=== PATIENT | female | born 1970 | race Caucasian/White ===

== ENCOUNTER 2018-10-04 08:13 | Observation (INO) | payer SELFPAY ==
[~2018-10-04] VITALS: Ht 160 cm; Wt 148.9 kg
[~2018-10-04 08:13] MED LIST: AC500T PO; ACID1TAB PO; ALBU17AE3 IH; ALBU8.5H4 IH; BUDE10.2 IH; BUDE6HFA IH; CLON0.1T PO; CPH250CIP PO; DIPH1TAB45 PO; FESO45ML PO; FLUV100T3 PO; HYDR-3714 PO; IBUP-30 PO; IRON LIQUID PO; KCL10CCR PO; LORA0.5T PO; MGX400T PO; PRD10T PO; RT-ALBUINH IH; VENL150C PO; ZOLP10TA5 PO
[2018-10-04] MEDS ORDERED: RT-ALBUTEROL SULF 2.5 MG/3 ML PRE-MIX VIAL INH STA ×2 (08:19→08:32)
[2018-10-04] MEDS ORDERED: RT-IPRATROPIUM (ATROVENT) 0.5MG/2.5ML AMP IH ONE (08:24)
--- NOTE | 2018-10-04 08:26 | ED Respiratory ---
General Stated Complaint: SOB Source: patient Exam Limitations: no limitations History of Present Illness Date Seen by Provider: Oct 04, 2018 Time Seen by Provider: 08:16 Initial Comments Patient presents to ER by private conveyance with chief complaint of shortness of breath. Since Thursday, 5 days ago she started having some body aches and chills but no fever. She thought she might of had a cold and she has a history of asthma requiring frequent steroids couple times a year so she went to the clinic or Thursday of last week and he put her on prednisone and a Z- Nish. They did not test her for influenza because she has not any fevers. She said she took all the Z-Nish is been on the steroids and his been using her DuoNeb more and more frequently now she's about every 3-4 hours and awake. She said she got winded just trying to go to school this morning. She said she had to stop several times to sit down on her way in to class. She's been having a productive cough with yellow sputum. Allergies and Home Medications Allergies Coded Allergies: No Known Drug Allergies (Unverified , 10/26/13) Home Medications Acetaminophen 500 Mg Tablet, 1,000 MG PO DAILY PRN for PAIN OR FEVER, (Reported) TAKES 2 (500MG) TABLETS NEEDED FOR PAIN OR FEVER Albuterol Sulfate 18 Gm Hfa.aer.ad, 2 PUFF IH Q4H PRN for SHORTNESS OF BREATH, ( Reported) Budesonide/Formoterol Fumarate 10.2 Gm Hfa.aer.ad, 2 PUFF IH BID Prescribed by: TEVIN MONTANO on 08/05/16 0947 Clonidine HCl 0.1 Mg Tablet, 0.1 MG PO HS, (Reported) Fluvoxamine Maleate 100 Mg Tablet, 100 MG PO HS, (Reported) Lorazepam 0.5 Mg Tablet, 0.5 MG PO BID PRN for ANXIETY, (Reported) Prednisone 10 Mg Tab, 10 MG PO DAILY Take 5 tabs(50mg)daily, decrease by 1 tab(10mg) every other day. Prescribed by: TEVIN MONTANO on 08/05/16 0947 Zolpidem Tartrate 10 Mg Tablet, 10 MG PO HS PRN for SLEEP, (Reported) Patient Home Medication List Home Medication List Reviewed: Yes Review of Systems Review of Systems Constitutional: chills; No diaphoresis, No fever; malaise, weakness EENTM: No ear discharge, No hearing loss, No ear pain Respiratory: cough, dyspnea on exertion, phlegm, short of breath, wheezing Cardiovascular: No chest pain, No palpitations Gastrointestinal: No abdominal pain, No constipation, No diarrhea Genitourinary: No discharge, No dysuria : No Musculoskeletal: No back pain, No joint pain Skin: No pruritus, No rash Past Yskrehi-Iylzkf-Hvwkma Hx Patient Social History Alcohol Use: Rarely Uses Recreational Drug Use: No Smoking Status: Former Smoker Type Used: Cigarettes Former Smoker, Quit: Jul 27, 2013 Recent Hopitalizations: No Immunizations Up To Date Tetanus Booster (TDap): Unknown Date of Pneumonia Vaccine: Oct 22, 2008 Date of Influenza Vaccine: Jul 14, 2016 Seasonal Allergies Seasonal Allergies: No Past Medical History Asthma Currently Using BIPAP: Yes Reproductive Disorders: No Sexually Transmitted Disease: No HIV/AIDS: No ODD, Depression Adverse Reaction/Blood Tranf: No Family Medical History Cancer 03 FATHER (PANCREATITC) Family history: Cardiovascular disease 03 FATHER ([place]) Physical Exam Vital Signs - First Documented 10/04/18 08:13 Temp 98.7 Pulse 117 Resp 24 B/P (MAP) 132/80 (97) Pulse Ox 86 O2 Delivery Room Air Capillary Refill : Height: 5'4.00" Weight: 243lbs. 5.0oz. 110.892943zx; 42.4 BMI Method:Stated General Appearance: mild distress, obese Eyes: Bilateral Eye Normal Inspection, Bilateral Eye PERRL, Bilateral Eye EOMI HEENT: PERRL/EOMI, normal ENT inspection, TMs normal, pharynx normal Neck: non-tender, full range of motion, supple, normal inspection Respiratory: chest non-tender, respiratory distress (mild), accessory muscle use (mild), wheezing (severe all 4 al) Cardiovascular: normal peripheral pulses, regular rate, rhythm, no edema Gastrointestinal: normal bowel sounds, non tender, soft Extremities: normal inspection, no pedal edema, normal capillary refill Neurologic/Psychiatric: alert, normal mood/affect, oriented x 3 Skin: normal color, warm/dry Focused Exam Lactate Level 10/04/18 08:30: Lactic Acid Level 2.93*H Lactic Acid Level Laboratory Tests Test 10/04/18 08:30 Lactic Acid Level 2.93 MMOL/L (0.50-2.00) *H Progress/Results/Core Measures Suspected Sepsis SIRS Temperature: Pulse: Respiratory Rate: Laboratory Tests 10/04/18 08:30: White Blood Count 9.7 Blood Pressure / Mean: 10/04/18 08:30: Lactic Acid Level 2.93*H Laboratory Tests 10/04/18 08:30: Creatinine 0.94, INR Comment 1.0, Platelet Count 334, Total Bilirubin 0.4 Results/Orders Lab Results Laboratory Tests Test 10/04/18 08:30 10/04/18 10:17 Range/Units White Blood Count 9.7 4.3-11.0 10^3/uL Red Blood Count 4.67 4.35-5.85 10^6/uL Hemoglobin 9.4 L 11.5-16.0 G/DL Hematocrit 32 L 35-52 % Mean Corpuscular Volume 69 L 80-99 FL Mean Corpuscular Hemoglobin 20 L 25-34 PG Mean Corpuscular Hemoglobin Concent 29 L 32-36 G/DL Red Cell Distribution Width 20.1 H 10.0-14.5 % Platelet Count 334 130-400 10^3/uL Mean Platelet Volume 11.2 H 7.4-10.4 FL Neutrophils (%) (Auto) 67 42-75 % Lymphocytes (%) (Auto) 19 12-44 % Monocytes (%) (Auto) 9 0-12 % Eosinophils (%) (Auto) 5 0-10 % Basophils (%) (Auto) 0 0-10 % Neutrophils # (Auto) 6.5 1.8-7.8 X 10^3 Lymphocytes # (Auto) 1.8 1.0-4.0 X 10^3 Monocytes # (Auto) 0.8 0.0-1.0 X 10^3 Eosinophils # (Auto) 0.5 H 0.0-0.3 10^3/uL Basophils # (Auto) 0.0 0.0-0.1 10^3/uL Prothrombin Time 13.2 12.2-14.7 SEC INR Comment 1.0 0.8-1.4 Activated Partial Thromboplast Time 26 24-35 SEC Sodium Level 137 135-145 MMOL/L Potassium Level 3.9 3.6-5.0 MMOL/L Chloride Level 104 98-107 MMOL/L Carbon Dioxide Level 20 L 21-32 MMOL/L Anion Gap 13 5-14 MMOL/L Blood Urea Nitrogen 14 7-18 MG/DL Creatinine 0.94 0.60-1.30 MG/DL Estimat Glomerular Filtration Rate > 60 BUN/Creatinine Ratio 15 Glucose Level 91 70-105 MG/DL Lactic Acid Level 2.93 *H 0.50-2.00 MMOL/L Calcium Level 8.9 8.5-10.1 MG/DL Corrected Calcium 8.8 8.5-10.1 MG/DL Total Bilirubin 0.4 0.1-1.0 MG/DL Aspartate Amino Transf (AST/SGOT) 15 5-34 U/L Alanine Aminotransferase (ALT/SGPT) 15 0-55 U/L Alkaline Phosphatase 93 40-136 U/L Total Protein 7.0 6.4-8.2 GM/DL Albumin 4.1 3.2-4.5 GM/DL Serum Test, Qualitative NEGATIVE NEGATIVE Urine Color YELLOW Urine Clarity SLIGHTLY CLOUDY Urine pH 5 5-9 Urine Specific Irving 1.020 1.016-1.022 Urine Protein 1+ H NEGATIVE Urine Glucose (UA) NEGATIVE NEGATIVE Urine Ketones 1+ H NEGATIVE Urine Nitrite NEGATIVE NEGATIVE Urine Bilirubin 1+ H NEGATIVE Urine Urobilinogen 4 H NORMAL MG/DL Urine Leukocyte Esterase 1+ H NEGATIVE Urine RBC (Auto) NEGATIVE NEGATIVE Urine RBC NONE /HPF Urine WBC RARE /HPF Urine Squamous Epithelial Cells >50 H /HPF Urine Crystals NONE /LPF Urine Bacteria FEW H /HPF Urine Casts NONE /LPF Urine Mucus NEGATIVE /LPF Urine Culture Indicated CULTURE PENDING Micro Results Microbiology 10/04/18 Influenza Types A,B Antigen (MAIRA) - Final, Complete My Orders Orders - VALENTÍN NAVA Cbc With Automated Diff (10/04/18 08:19) Comprehensive Metabolic Panel (10/04/18 08:19) Blood Culture (10/04/18 08:19) Sputum Culture (10/04/18 08:19) Urinalysis (10/04/18 08:19) Urine Culture (10/04/18 08:19) Protime With Inr (10/04/18 08:19) Partial Thromboplastin Time (10/04/18 08:19) Saline Lock/Iv-Start (10/04/18 08:19) Saline Lock/Iv-Start (10/04/18 08:19) Vital Signs Adult Sepsis Patie Q15M (10/04/18 08:19) O2 (10/04/18 08:19) Remove Rings In Anticipation O (10/04/18 08:19) Lactic Acid Analyzer (10/04/18 08:19) Influenza A And B Antigens (10/04/18 08:19) Ns Iv 1000 Ml (Sodium Chloride 0.9%) (10/04/18 08:30) Ceftriaxone For Iv Use (Rocephin For I (10/04/18 08:30) Azithromycin Injection (Zithromax Inject (10/04/18 08:30) Albuterol Pre-Mix Nebs (Rt) (Proventil (10/04/18 08:19) Albuterol/Ipra Inhalation Soln (Duoneb I (10/04/18 08:30) Svn Small Volume Nebulizer (10/04/18 08:19) Svn Small Volume Nebulizer (10/04/18 08:19) Chest Pa/Lat (2 View) (10/04/18 08:26) Ipratropium 0.02% Neb Solution (Atrovent (10/04/18 08:24) Hcg,Qualitative Serum (10/04/18 08:32) Albuterol Pre-Mix Nebs (Rt) (Proventil (10/04/18 08:32) Methylprednisolone Sod Succ (Solu-Medrol (10/04/18 11:15) Medications Given in ED Current Medications Medications Dose Ordered Sig/Juan Route Start Time Stop Time Status Last Admin Dose Admin Azithromycin 500 mg/Sodium Chloride 250 ml @ 250 mls/hr ONCE ONCE IV 10/04/18 08:30 10/04/18 09:29 DC 10/04/18 10:22 250 MLS/HR Ceftriaxone Sodium 1000 mg/ Sodium Chloride 60 ml @ 100 mls/hr ONCE ONCE IV 10/04/18 08:30 10/04/18 09:05 DC 10/04/18 09:00 100 MLS/HR Ipratropium Echo 0.5 mg STK-MED ONCE IH 10/04/18 08:24 10/04/18 08:28 DC 10/04/18 08:30 0.5 MG Sodium Chloride 1,500 ml @ 1,500 mls/hr ONCE ONCE IV 10/04/18 08:30 10/04/18 09:29 DC 10/04/18 08:46 1,500 MLS/HR Vital Signs/I&O 10/04/18 10/04/18 10/04/18 08:13 08:25 08:29 Temp 98.7 Pulse 117 Resp 24 B/P (MAP) 132/80 (97) Pulse Ox 86 89 89 O2 Delivery Room Air Room Air Nasal Cannula Capillary Refill : Progress Note #1: Time: 08:31 Progress Note If she is really using her DuoNeb every 4 hours. She is likely tachyphylactic so we'll treat her with an hour-long breathing treatment, 125 mg Solu-Medrol and check a 2 view chest x-ray some labs. Technical she meets SIRS criteria with her tachypnea and tachycardia. Rocephin and azithromycin IV and blood cultures and lactate. Oxygen saturation 91-93% on room air so we'll put her on 2 L by nasal cannula. Progress Note #2: Time: 11:03 Progress Note After the breathing treatment she has a few fair wheezes and increased expiratory time but she is sounding a lot better. Her oxygen saturation is 93% on 2 L by nasal cannula with a heart rate of around 110. We have given her some IV fluids and antibiotics. She still feels very worn out and has a lot of increased dyspnea on exertion. Be reasonable to hold her on observation status will steroids get started. Diagnostic Imaging Diagonstic Imaging: Xray Plain Films/CT/US/NM/MRI: chest (2v) Comments [facility], [facility]. [place], [place] NAME: GERALDAPRIL [facility] REC#: [id number] PT STATUS: REG ER : 1970 PHYSICIAN: VALENTÍN NAVA MD ADMIT DATE: 10/04/18/ER Draft Date of Exam:10/04/18 CHEST PA/LAT (2 VIEW) Indication: Dyspnea PA and lateral views of the chest obtained with comparison made to study of 07/31/2016. Heart size and pulmonary vascularity are within normal limits. There is no pneumothorax or consolidation. Linear density in the left base likely represents atelectasis or scarring. There may be a small amount of intrafissural fluid as well. Impression: Mild left basilar atelectasis and/or scarring with possible intrafissural pleural fluid or thickening. Dictated on workstation # [id number] Dict: 10/04/18 1038 Trans: 10/04/18 1044 [facility] [id number] Interpreted by: GLENROY YORK MD Electronically signed by: Reviewed: Reviewed by Me Departure Communication (Admissions) Time/Spoke to Admitting Phy: 11:05 Discussed the case with Dr. Corona and she would like Dr. Chavez's consultation. Time/Spoke to Consulting Phy: 11:10 Discussed the case with Dr. Chavez and he would like RT to set up feeling Vioxx as well as albuterol every 2 hours, Solu-Medrol 40 mg every 6 hours. Impression Primary Impression: Acute asthma exacerbation Qualified Codes: J45.901 - Unspecified asthma with (acute) exacerbation Additional Impression: Hypoxia Disposition: 09 ADMITTED INPATIENT Condition: Stable Admissions Decision to Admit Reason: Admit from ER (General) Decision to Admit/Date: Oct 04, 2018 Time/Decision to Admit Time: 11:15 Departure-Patient Inst. Referrals: [facility] (PCP/Family) Primary Care Physician VALENTÍN NAVA Oct 04, 2018 08:26
[2018-10-04] MEDS ORDERED: RT-ALBUTEROL/IPRATROPIUM 3 ML (DUONEB) VIAL INH ONE (08:30)
[2018-10-04] MEDS ORDERED: NS IV 1000 ML 1,500 ML IV ONE (08:30)
[2018-10-04] MEDS ORDERED: cefTRIAXone FOR IV USE 1,000 MG in NS (IVPB) 50 ML IV ONE (08:30)
[2018-10-04] MEDS ORDERED: AZITHROMYCIN INJECTION 500 MG in NS (IVPB) 250 ML IV ONE (08:30)
[2018-10-04 08:39] LABS: BASOPHILS % (AUTO) 0 % (0-10); EOSINOPHILS # (AUTO) 0.5 10^3/uL (0.0-0.3); EOSINOPHILS % (AUTO) 5 % (0-10); HEMATOCRIT 32 % (35-52); HEMOGLOBIN 9.4 G/DL (11.5-16.0); LYMPHOCYTES # (AUTO) 1.8 X 10^3 (1.0-4.0); LYMPHOCYTES % (AUTO) 19 % (12-44); MEAN CORPUSCULAR HEMOGLOBIN 20 PG (25-34); MEAN CORPUSCULAR HGB CONC 29 G/DL (32-36); MEAN CORPUSCULAR VOLUME 69 FL (80-99); MEAN PLATELET VOLUME 11.2 FL (7.4-10.4); MONOCYTES # (AUTO) 0.8 X 10^3 (0.0-1.0); MONOCYTES % (AUTO) 9 % (0-12); NEUTROPHILS # (AUTO) 6.5 X 10^3 (1.8-7.8); NEUTROPHILS % (AUTO) 67 % (42-75); PLATELET COUNT 334 10^3/uL (130-400); RED BLOOD COUNT 4.67 10^6/uL (4.35-5.85); RED CELL DISTRIBUTION WIDTH 20.1 % (10.0-14.5); WHITE BLOOD COUNT 9.7 10^3/uL (4.3-11.0)
[2018-10-04 08:52] LABS: PROTHROMBIN TIME PATIENT 13.2 SEC (12.2-14.7)
[2018-10-04 08:59] LABS: ALANINE AMINOTRANSFERASE 15 U/L (0-55); ALBUMIN 4.1 GM/DL (3.2-4.5); ALKALINE PHOSPHATASE 93 U/L (40-136); BILIRUBIN,TOTAL 0.4 MG/DL (0.1-1.0); BUN/CREATININE RATIO 15; CALCIUM 8.9 MG/DL (8.5-10.1); CARBON DIOXIDE 20 MMOL/L (21-32); CHLORIDE 104 MMOL/L (98-107); CREATININE SERUM 0.94 MG/DL (0.60-1.30); GFR ESTIMATED > 60; GLUCOSE 91 MG/DL (70-105); POTASSIUM 3.9 MMOL/L (3.6-5.0); SODIUM 137 MMOL/L (135-145)
--- NOTE | 2018-10-04 10:12 | NUR ---
pt unable to tolerate without O2. Pt will desat to 86-87 %
[2018-10-04 10:30] LABS: CLARITY,URINE SLIGHTLY CLOUDY; COLOR,URINE YELLOW; GLUCOSE, URINE (UA) NEGATIVE (NEGATIVE); KETONES,URINE 1+ (NEGATIVE); LEUKOCYTE ESTERASE ,URINE 1+ (NEGATIVE); NITRITE,URINE NEGATIVE (NEGATIVE); PH,URINE 5 (5-9); PROTEIN,URINE 1+ (NEGATIVE); UROBILINOGEN,URINE 4 MG/DL (NORMAL)
--- NOTE | 2018-10-04 10:45 | Diagnostic Imaging Report ---
Indication: Dyspnea PA and lateral views of the chest obtained with comparison made to study of 07/31/2016. Heart size and pulmonary vascularity are within normal limits. There is no pneumothorax or consolidation. Linear density in the left base likely represents atelectasis or scarring. There may be a small amount of intrafissural fluid as well. Impression: Mild left basilar atelectasis and/or scarring with possible intrafissural pleural fluid or thickening. Dictated by: Dictated on workstation # [id number]
[2018-10-04 10:46] LABS: BACTERIA,URINE FEW /HPF; BILIRUBIN,URINE 1+ (NEGATIVE); SQUAMOUS EPITHELIAL CELL,UR >50 /HPF; WBC,URINE RARE /HPF
[2018-10-04 11:00] VITALS: BP 117/67
[2018-10-04] MEDS ORDERED: methylPREDNISolone 125 MG (Solu-MEDROL) VIAL IVP ONE (11:15)
[2018-10-04 11:50] LABS: ABG BASE EXCESS -2.5 MMOL/L (-2.5-2.5); ABG OXYGEN SATURATION 93 % (94-100); ABG PCO2 35 MMHG (35-45); ABG PH 7.41 (7.37-7.43); ABG PO2 63 MMHG (79-93); ABG TCO2 22.6 MMOL/L (21.0-31.0)
[2018-10-04 11:51] LABS: ALLENS TEST POSITIVE; INSPIRED O2 2; PATIENT TEMP 97.7; VENTILATOR NO
--- NOTE | 2018-10-04 12:41 | NUR ---
report given to andrez marquez
--- NOTE | 2018-10-04 13:04 | History & Physical-Hospitalist ---
JOSEFINA MCNALLY DO 10/04/18 1304: History of Present Illness HPI/Chief Complaint CC: Wheezing HPI: This is a 48-year-old white female with a history of asthma and sleep apnea maintain on home CPAP machine who presented to the ER after failed antibiotics and oral steroids given at the [facility] where she has established her care. She reports that the wheezing has just worsened and patient was given multiple nebulizer treatments in the ER and met criteria for hospital admission for IV steroids oxygen and nebulizer treatments. 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 Patient denies any productive cough or yellow sputum or fever or chills. Source: patient Exam Limitations: no limitations Date Seen 10/04/18 Time Seen by a Provider: 13:00 Attending Physician Josefina Mcnally DO [facility] Referring Physician Date of Admission Oct 04, 2018 at 11:24 Home Medications & Allergies Home Medications Reviewed patient Home Medication Reconciliation performed by pharmacy medication reconciliations veterinary technician assistant and/or nursing. Patients Allergies have been reviewed. 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) Alcohol Use: Rarely Uses Recreational Drug Use: No Smoking Status: Former Smoker Former Smoker, Quit: Jul 27, 2013 Type Used: Cigarettes Recent Foreign Travel: No Contact w/other who traveled: No Recent Hopitalizations: No Recent Infectious Disease Expo: No Immunizations Up To Date Tetanus Booster (TDap): Unknown Date of Pneumonia Vaccine: Oct 22, 2008 Date of Influenza Vaccine: Jul 14, 2016 Seasonal Allergies Seasonal Allergies: No Past Medical History Surgeries: Abdominal (gastric sleeve) Respiratory: Asthma, Sleep Apnea Currently Using BIPAP: Yes Reproductive: No Sexually Transmitted Disease: No HIV/AIDS: No Genitourinary: Bladder Infection Gastrointestinal: Gastroesophageal Reflux, Chronic Constipation Musculoskeletal: Chronic Back Pain Psychosocial: Sleep Difficulties, Anxiety, ODD, Depression History of Blood Disorders: Yes (ANEMIA) Adverse Reaction to Blood Pascual: No Family History Cancer 03 FATHER (PANCREATITC) Family history: Cardiovascular disease 03 FATHER ([place]) Review of Systems Constitutional: see HPI EENTM: no symptoms reported Respiratory: cough, dyspnea on exertion, short of breath, wheezing Cardiovascular: no symptoms reported Gastrointestinal: no symptoms reported Genitourinary: no symptoms reported Musculoskeletal: no symptoms reported Skin: no symptoms reported Psychiatric/Neurological: No Symptoms Reported All Other Systems Reviewed Negative Unless Noted: Yes Physical Exam Physical Exam Vital Signs Vital Signs - First Documented 10/04/18 10/04/18 08:13 10:45 Temp 98.7 Pulse 117 Resp 24 B/P (MAP) 132/80 (97) Pulse Ox 86 O2 Delivery Room Air O2 Flow Rate 3.00 Capillary Refill : Less Than 3 Seconds Height, Weight, BMI Height: 5'6.00" Weight: 250lbs. 5.0oz. 113.175601lx; 42.4 BMI Method:Stated General Appearance: No Apparent Distress, WD/WN, Chronically ill, Obese Eyes: Bilateral Eye Normal Inspection, Bilateral Eye PERRL HEENT: PERRL/EOMI, Normal ENT Inspection, Pharynx Normal Neck: Full Range of Motion, Normal Inspection, Non Tender, Supple, Carotid Bruit Respiratory: Chest Non Tender, Crackles, Decreased Breath Sounds, Respiratory Distress, Wheezing Cardiovascular: Regular Rate, Rhythm, No Edema, No Gallop, No JVD, No Murmur, Normal Peripheral Pulses Gastrointestinal: Normal Bowel Sounds, No Organomegaly, No Pulsatile Mass, Non Tender, Soft Back: Normal Inspection, No CVA Tenderness, No Vertebral Tenderness Extremity: Normal Capillary Refill, Normal Inspection, Normal Range of Motion, Non Tender, No Calf Tenderness, No Pedal Edema Neurologic/Psychiatric: Alert, Oriented x3, No Motor/Sensory Deficits, Normal Mood/Affect Skin: Normal Color, Warm/Dry Lymphatic: No Adenopathy Results Results/Procedures Labs Laboratory Tests 10/04/18 08:30 10/05/18 05:54 Patient resulted labs reviewed. Assessment/Plan Admission Diagnosis Assessment: Status asthmaticus failed outpatient treatment Sleep apnea maintained on CPAP machine Obesity failed gastric sleeve Anxiety OCD Depression Insomnia Plan: IV steroids Pulmonology consultation is appreciated Likely discharge tomorrow Admission Status: Observation Diagnosis/Problems Diagnosis/Problems (1) Acute asthma exacerbation Status: Acute Qualifiers: Asthma severity: unspecified severity Asthma persistence: unspecified Qualified Codes: J45.901 - Unspecified asthma with (acute) exacerbation (2) Hypoxia Status: Acute LAUREL KWONG MEDICAL STUDENT 10/05/18 0739: History of Present Illness HPI/Chief Complaint This is a 48 year old female with history of asthma who was admitted from the ED for SOB. Pt states that she started feeling "sick" with body aches last week. She states she went to the clinic on and was prescribed prednisone dose pack. Pt states that she has had worsening SOB since Thursday. Pt states walking makes the shortness of breath worse and that it is better with rest. Pt states she has tried her home nebulizer and inhaler which did not help. Pt states she has episodes where she has to be hospitalized every couple years with the last hospitalization being in 2016. Past Gqiatxm-Mktaqr-Ufemmu Hx Family History Cancer 03 FATHER (PANCREATITC) Family history: Cardiovascular disease 03 FATHER ([place]) Review of Systems Constitutional: no symptoms reported; No weakness EENTM: no symptoms reported Respiratory: cough, short of breath Gastrointestinal: No abdominal pain, No nausea, No vomiting Musculoskeletal: no symptoms reported Physical Exam Physical Exam General Appearance: Mild Distress Eyes: Bilateral Eye PERRL HEENT: PERRL/EOMI Respiratory: Respiratory Distress, Wheezing Cardiovascular: Tachycardia Gastrointestinal: Normal Bowel Sounds, Non Tender, Soft Neurologic/Psychiatric: Alert, Oriented x3 Assessment/Plan Assessment and Plan assessment asthma exacerbation Lactic acidosis plan duoneb q4h IV solumedrol O2 IV fluids JOSEFINA MCNALLY DO Oct 04, 2018 13:04 LAUREL KWONG MEDICAL STUDENT Oct 05, 2018 07:39
[2018-10-04 13:08] VITALS: BP 127/62
[2018-10-04] MEDS ORDERED: ACETAMINOPHEN 500 MG TAB (TYLENOL) PO PRN (14:00)
[2018-10-04] MEDS ORDERED: ONDANSETRON 4 MG/2 ML (SDV) Z0FRAN IVP PRN (14:00)
--- NOTE | 2018-10-04 14:00 | NUR ---
Pt. in room on Heliox O2. Lungs have bilateral inspiratory wheezes. Pt. has no complaints of sob at this time. No complaints of pain. Pt. oriented to room and call light.
[2018-10-04] MEDS ORDERED: BENZ100C18 PO (14:19)
[2018-10-04] MEDS ORDERED: MELO15TA39 PO (14:19)
[2018-10-04] MEDS ORDERED: AZIT250T12 PO (14:19)
[2018-10-04] MEDS ORDERED: BUDE10.2 IH (14:25)
[2018-10-04] MEDS ORDERED: LORA1TAB PO (14:25)
[2018-10-04] MEDS ORDERED: IPRA3AMP31 IH (14:25)
[2018-10-04] MEDS ORDERED: BUPR150T9 PO (14:25)
[2018-10-04] MEDS ORDERED: DULO30CA3 PO (14:25)
--- NOTE | 2018-10-04 14:27 | NUR ---
SPOKE WITH THE PATIENT REGARDING HER HOME MEDICATIONS, SHE HAD HER BOTTLES WITH HER. I ALSO CALLED [facility] FOR A LIST OF RECENTLY FILLED MEDICATIONS. [facility] FILLED: 10-01-18 TESSALON PERLES 100MG TID PRN #42 10-01-18 ZPAK #6 (HAS TWO TABS LEFT) 09-30-18 MOBIC 15MG DAILY #30 09-30-18 PREDNISONE 20MG 2 DAILY X 5 DAYS #10 (OUT OF PILLS, STATES SHE TOOK MORE IN BEGINNING AND TAPERED DOWN, SHE STATES SHE CALLED AND TALKED TO ABOUT DOING THIS) 09-30-18 WELLBUTRIN SR 150MG BID #60 09-11-18 AMBIEN 10MG HS PRN #30 (STATES SHE TAKES EVERY NIGHT) 09-11-18 LORAZEPAM 1MG BID PRN #60 09-11-18 CYMBALTA 30MG 1 DAILY X 7 DAYS THEN INCREASED TO 2 DAILY (TAKES IT BID) 07-30-18 VENTOLIN PATIENT ALSO HAS SYMBICORT SHE STATES SHE RECEIVED SAMPLE, AND ALSO HAS DUONEB NEBULIZER TREATMENTS SHE USES Q4H PRN.
[2018-10-04] MEDS: NS IV 1000 ML 1,000 ML IV SCH ×2 (14:35→21:41)
[2018-10-04 14:40] VITALS: BP 127/62
[2018-10-04] MEDS ORDERED: RT-ALBUTEROL SULF 2.5 MG/3 ML PRE-MIX VIAL IH SCH (15:00)
[2018-10-04] MEDS ORDERED: RT-ALBUTEROL/IPRATROPIUM 3 ML (DUONEB) VIAL INH PRN (15:00)
[2018-10-04 16:00] VITALS: BP 121/68
--- NOTE | 2018-10-04 16:13 | Pulmonary Consultation ---
History of Present Illness History of Present Illness Date of Consultation 10/04/18 16:07 Time Seen by Provider: 16:07 Date of Admission History of Present Illness 48yo with hx of uncontrolled asthma requiring steroids 2x/yr on average presented to ED secondary to worsening SOB and SPC of thick yellow sputum. Symptoms started 5 days prior with body aches and chills but no fever. Last week pt was placed on a prednisone taper and Zpak. Despite out patient treatment patient continued to worsen. I am consulted for pulmonary management. Allergies and Home Medications Allergies Coded Allergies: No Known Drug Allergies (Unverified , 10/26/13) Home Medications Albuterol Sulfate 18 Gm Hfa.aer.ad, 2 PUFF IH Q4H PRN for SHORTNESS OF BREATH, ( Reported) Azithromycin 250 Mg Tablet, 250 MG PO UD, (Reported) FILLED #6 10-01-18 TAKE 2 TABLETS ON DAY ONE THEN TAKE 1 TABLET DAILY FOR FOUR MORE DAYS Benzonatate 100 Mg Capsule, 100 MG PO TID PRN for COUGH, (Reported) Budesonide/Formoterol Fumarate 10.2 Gm Hfa.aer.ad, 2 PUFF IH BID, (Reported) Bupropion HCl 150 Mg Tablet.er, 150 MG PO BID, (Reported) Duloxetine HCl 30 Mg Capsule.dr, 30 MG PO BID, (Reported) Ipratropium/Albuterol Sulfate 3 Ml Ampul.neb, 3 ML IH Q4H PRN for SHORTNESS OF BREATH, (Reported) Lorazepam 1 Mg Tablet, 1 MG PO BID PRN for ANXIETY, (Reported) Meloxicam 15 Mg Tablet, 15 MG PO DAILY, (Reported) Zolpidem Tartrate 10 Mg Tablet, 10 MG PO HS, (Reported) Past Czxembn-Nrytlc-Lbeubh Hx Patient Social History Alcohol Use: Rarely Uses Number of Drinks Today: 0 Recreational Drug Use: No Smoking Status: Former Smoker Type Used: Cigarettes Former Smoker, Quit: Jul 27, 2013 Recent Foreign Travel: No Contact w/Someone Who Travel: No Recent Infectious Disease Expo: No Recent Hopitalizations: No Physical Abuse: No Sexual Abuse: No Mistreated: No Fear: No Immunizations Up To Date Tetanus Booster (TDap): Unknown PED Vaccines UTD: Yes Date of Pneumonia Vaccine: Oct 22, 2008 Date of Influenza Vaccine: Jun 24, 2018 Seasonal Allergies Seasonal Allergies: No Past Medical History Surgeries: Yes (GASTRIC BYPASS - 2001) Respiratory: Yes Asthma Currently Using BIPAP: Yes Cardiac: No Neurological: No Reproductive Disorders: No Sexually Transmitted Disease: No HIV/AIDS: No Musculoskeletal: No Endocrine: No Cancer: No Psychosocial: No ODD, Depression Integumentary: Yes Blood Disorders: Yes (ANEMIA) Adverse Reaction/Blood Tranf: No Family Medical History Cancer 03 FATHER (PANCREATITC) Family history: Cardiovascular disease 03 FATHER ([place]) Sepsis Event Evaluation Height, Weight, BMI Height: 5'3.00" Weight: 323lbs. 6.0oz. 146.016484gh; 57.3 BMI Method:Stated Exam Exam Vital Signs Date Time Temp Pulse Resp B/P (MAP) Pulse Ox O2 Delivery O2 Flow Rate FiO2 10/04/18 15:05 88 Nasal Cannula 2.00 10/04/18 14:40 102 88 10/04/18 13:22 98.6 88 18 117/74 (88) 100 Room Air 10/04/18 13:08 98.6 91 20 127/62 (83) 96 Nasal Cannula 2.00 10/04/18 11:00 98.4 84 22 117/67 (84) 94 Nasal Cannula 3.00 10/04/18 10:45 98.4 84 20 122/68 94 Nasal Cannula 3.00 10/04/18 08:29 89 Nasal Cannula 10/04/18 08:25 89 Room Air 10/04/18 08:13 98.7 117 24 132/80 (97) 86 Room Air Height & Weight Height: 5'3.00" Weight: 323lbs. 6.0oz. 146.561610lo; 57.3 BMI Method:Stated Capillary Refill: Less Than 3 Seconds Gastrointestinal: normal bowel sounds, non tender, soft Results Lab Laboratory Tests 10/04/18 08:30 Assessment/Plan Assessment/Plan AsthmaAE -Solumedrol 40 Q6 -SVNS -Telemetry Hypoxia -OXygen Atelectasis KRISTIE MARCH DO Oct 04, 2018 16:12
[2018-10-04] MEDS ORDERED: LORazepam 1 MG (ATIVAN) TAB PO PRN (17:45)
[2018-10-04] MEDS ORDERED: BENZONATATE 100 MG (TESSALON) CAPSULE PO PRN (17:45)
[2018-10-04] MEDS: methylPREDNISolone 40 MG/ML (Solu-MEDROL) VIAL IV SCH ×2 (17:49→23:27)
[2018-10-04] MEDS: buPROPion SR 150 MG (WELLBUTRIN SR) TAB PO SCH (18:32)
[2018-10-04] MEDS: ACETAMINOPHEN 325 MG TABLET PO PRN ×2 (18:45→23:27)
[2018-10-04] MEDS: RT-ALBUTEROL/IPRATROPIUM 3 ML (DUONEB) VIAL INH SCH ×2 (19:15→21:47)
[2018-10-04] MEDS ORDERED: NON-FORMULARY MEDICATION 1 EA EA (Duloxetine HCl (Cymbalta) 30 MG) PO SCH (21:00)
[2018-10-04] MEDS ORDERED: NON-FORMULARY MEDICATION 1 EA EA (Zolpidem Tartrate 10 MG) PO SCH (21:00)
[2018-10-04] MEDS ORDERED: BUPROPION HCL 150 MG PO SCH (21:00)
[2018-10-04] MEDS ORDERED: DULoxetine 30 MG (CYMBALTA) CAP PO SCH (21:00)
[2018-10-04] MEDS ORDERED: ZOLPIDEM 5 MG (AMBIEN) TAB PO SCH (21:00)
[2018-10-05 00:25] VITALS: BP 143/66
[2018-10-05] MEDS: RT-ALBUTEROL/IPRATROPIUM 3 ML (DUONEB) VIAL INH SCH ×3 (02:17→20:10)
[2018-10-05 04:16] VITALS: BP 139/63
--- NOTE | 2018-10-05 04:27 | Pulmonary Progress Note ---
THELMACRYSTAL STUDENT 10/05/18 0427: Subjective Date Seen by a Provider: Oct 05, 2018 Time Seen by a Provider: 04:21 Subjective/Events-last exam She feels like her breathing is doing better today but she is still short of breath when walking to the bathroom. She is on 3 L oxygen currently. Cough is still present but with less sputum production. She is concerned about going home because she is taking classes that just started. Review of Systems General: No Chills, No Night Sweats, No Fatigue HEENT: No Head Aches, No Visual Changes Pulmonary: Dyspnea, Cough, Pleuritic Chest Pain Cardiovascular: No: Chest Pain, Palpitations, Orthopnea, Paroxysmal Noc. Dyspnea, Edema Gastrointestinal: No: Abdominal Pain, Diarrhea, Constipation Genitourinary: No Dysuria, No Frequency Neurological: No: Weakness, Numbness Sepsis Event Evaluation Height, Weight, BMI Height: 5'3.00" Weight: 323lbs. 6.0oz. 146.722765bp; 57.3 BMI Method:Stated Focused Exam Lactate Level 10/04/18 08:30: Lactic Acid Level 2.93*H 10/04/18 12:16: Lactic Acid Level 2.05*H Exam Exam Vital Signs Date Time Temp Pulse Resp B/P (MAP) Pulse Ox O2 Delivery O2 Flow Rate FiO2 10/05/18 02:17 90 Room Air 3.00 10/05/18 01:00 105 10/05/18 00:25 97.8 85 18 143/66 (91) 93 Nasal Cannula 3.50 10/04/18 21:48 92 Non Rebreather 3.00 10/04/18 20:00 Nasal Cannula 3.00 10/04/18 19:15 93 Nasal Cannula 3.00 10/04/18 19:00 103 10/04/18 17:10 20 91 10/04/18 16:56 91 Non Rebreather 3.00 10/04/18 16:48 97 10/04/18 16:00 96.9 109 20 121/68 (85) 92 Nasal Cannula 3.00 10/04/18 15:05 88 Nasal Cannula 2.00 10/04/18 14:40 102 88 10/04/18 13:22 98.6 88 18 117/74 (88) 100 Room Air 10/04/18 13:08 98.6 91 20 127/62 (83) 96 Nasal Cannula 2.00 10/04/18 11:00 98.4 84 22 117/67 (84) 94 Nasal Cannula 3.00 10/04/18 10:45 98.4 84 20 122/68 94 Nasal Cannula 3.00 10/04/18 08:29 89 Nasal Cannula 10/04/18 08:25 89 Room Air 10/04/18 08:13 98.7 117 24 132/80 (97) 86 Room Air I & O 10/05/18 07:00 Intake Total 2800 ml Output Total 750 ml Balance 2050 ml Height & Weight Height: 5'3.00" Weight: 323lbs. 6.0oz. 146.371819qd; 57.3 BMI Method:Stated General Appearance: No Apparent Distress, WD/WN, Obese HEENT: PERRL/EOMI, Pharynx Normal, Moist Mucous Membranes Neck: Normal Inspection, Non Tender, Supple Respiratory: Chest Non Tender, Normal Breath Sounds, No Accessory Muscle Use, No Respiratory Distress Cardiovascular: Regular Rate, Rhythm, No Edema, No Murmur Capillary Refill: Less Than 3 Seconds Gastrointestinal: normal bowel sounds, non tender, soft Extremity: Normal Inspection, Non Tender, No Calf Tenderness, No Pedal Edema Neurologic/Psychiatric: Alert, Oriented x3, Normal Mood/Affect Skin: Normal Color, Warm/Dry Lymphatic: No Adenopathy Results Lab Laboratory Tests 10/04/18 08:30 Assessment/Plan Assessment/Plan Asthma AE -Conintue solumedrol 40 Q6 -SVNS -Influenza A and B were negative -ABG showed compensated respiratory alkalosis -Telemetry -On symbicort and ventolin at home Hypoxia -Oxygen -RT consult Atelectasis -CXR showed atelectasis SVETLANA -CPAP Lactic acid elevation -Repeat today Microcytic anemia -Iron replacement Obesity -Discussed weight loss KRISTIE MARCH DO 10/05/18 0815: Subjective Date Seen by a Provider: Oct 05, 2018 Time Seen by a Provider: 08:10 Subjective/Events-last exam Pt feels better and wants to go home. She is still requiring 3 liters of oxygen. Exam Exam General Appearance: No Apparent Distress, WD/WN, Obese HEENT: PERRL/EOMI, Pharynx Normal, Moist Mucous Membranes Neck: Normal Inspection, Non Tender, Supple Respiratory: Chest Non Tender, Normal Breath Sounds, No Accessory Muscle Use, No Respiratory Distress Cardiovascular: Regular Rate, Rhythm, No Edema, No Murmur Gastrointestinal: normal bowel sounds, non tender, soft Extremity: Normal Inspection, Non Tender, No Calf Tenderness, No Pedal Edema Neurologic/Psychiatric: Alert, Oriented x3, Normal Mood/Affect Skin: Normal Color, Warm/Dry Lymphatic: No Adenopathy Assessment/Plan Assessment/Plan Asthma AE -solumedrol 40 Q6 -SVNS -Influenza A and B were negative -Telemetry -add advair Hypoxia -Oxygen -RT consult Atelectasis -CXR showed atelectasis SVETLANA -CPAP Lactic acid elevation -Repeat today Microcytic anemia -Iron replacement Obesity -Discussed weight loss CRYSTAL RENEE STUDENT Oct 05, 2018 04:27 KRISTIE MARCH DO Oct 05, 2018 08:15
[2018-10-05] MEDS: buPROPion SR 150 MG (WELLBUTRIN SR) TAB PO SCH ×3 (05:24→20:30)
[2018-10-05] MEDS: methylPREDNISolone 40 MG/ML (Solu-MEDROL) VIAL IV SCH ×4 (05:24→23:37)
[2018-10-05] MEDS: NS IV 1000 ML 1,000 ML IV SCH ×2 (05:24→11:36)
[2018-10-05 06:48] LABS: BASOPHILS % (AUTO) 0 % (0-10); EOSINOPHILS % (AUTO) 0 % (0-10); HEMATOCRIT 31 % (35-52); HEMOGLOBIN 8.9 G/DL (11.5-16.0); LYMPHOCYTES # (AUTO) 0.9 X 10^3 (1.0-4.0); LYMPHOCYTES % (AUTO) 9 % (12-44); MEAN CORPUSCULAR HEMOGLOBIN 20 PG (25-34); MEAN CORPUSCULAR HGB CONC 29 G/DL (32-36); MEAN CORPUSCULAR VOLUME 70 FL (80-99); MEAN PLATELET VOLUME 11.7 FL (7.4-10.4); MONOCYTES # (AUTO) 0.4 X 10^3 (0.0-1.0); MONOCYTES % (AUTO) 4 % (0-12); NEUTROPHILS # (AUTO) 8.9 X 10^3 (1.8-7.8); NEUTROPHILS % (AUTO) 88 % (42-75); PLATELET COUNT 313 10^3/uL (130-400); RED BLOOD COUNT 4.49 10^6/uL (4.35-5.85); RED CELL DISTRIBUTION WIDTH 19.7 % (10.0-14.5); WHITE BLOOD COUNT 10.1 10^3/uL (4.3-11.0)
[2018-10-05 07:08] LABS: ALANINE AMINOTRANSFERASE 15 U/L (0-55); ALBUMIN 3.9 GM/DL (3.2-4.5); ALKALINE PHOSPHATASE 87 U/L (40-136); BILIRUBIN,TOTAL 0.3 MG/DL (0.1-1.0); BUN/CREATININE RATIO 18; CALCIUM 9.1 MG/DL (8.5-10.1); CARBON DIOXIDE 18 MMOL/L (21-32); CHLORIDE 108 MMOL/L (98-107); CREATININE SERUM 0.83 MG/DL (0.60-1.30); GFR ESTIMATED > 60; GLUCOSE 131 MG/DL (70-105); POTASSIUM 4.2 MMOL/L (3.6-5.0); SODIUM 138 MMOL/L (135-145); TOTAL PROTEIN 6.8 GM/DL (6.4-8.2)
[2018-10-05 07:44] LABS: HYPOCHROMASIA MODERATE; LYMPHOCYTES % (MANUAL) 8 %; MICROCYTOSIS MODERATE; MONOCYTES % (MANUAL) 1 %; MYELOCYTES % 1 %; NEUTROPHILS % (MANUAL) 90 %
[2018-10-05 07:45] LABS: ANISOCYTOSIS MODERATE; ELLIPT/OVALOCYTES SLIGHT
[2018-10-05 08:00] VITALS: BP 143/64
[2018-10-05] MEDS ORDERED: NON-FORMULARY MEDICATION 1 EA EA (Meloxicam 15 MG) PO SCH (09:00)
[2018-10-05] MEDS ORDERED: MELOXICAM 7.5 MG (MOBIC) TABLET PO SCH (09:00)
--- NOTE | 2018-10-05 09:32 | Progress Note-Hospitalist ---
STEPHANIE MCNALLY DO 10/05/18 0932: Subjective HPI/CC On Admission Date Seen by Provider: Oct 05, 2018 Time Seen by Provider: 09:30 This is a 48 year old female with history of asthma who was admitted from the ED for SOB. Pt states that she started feeling "sick" with body aches last week. She states she went to the clinic on and was prescribed prednisone dose pack. Pt states that she has had worsening SOB since Thursday. Pt states walking makes the shortness of breath worse and that it is better with rest. Pt states she has tried her home nebulizer and inhaler which did not help. Pt states she has episodes where she has to be hospitalized every couple years with the last hospitalization being in 2016. 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 Overall less wheezing Able to use her CPAP machine Less coughing Review of Systems Pulmonary: Cough Focused Exam Lactate Level 10/04/18 08:30: Lactic Acid Level 2.93*H 10/04/18 12:16: Lactic Acid Level 2.05*H Objective Exam Vital Signs Vital Signs Date Time Temp Pulse Resp B/P (MAP) Pulse Ox O2 Delivery O2 Flow Rate FiO2 10/05/18 20:10 97 Room Air 3.00 10/05/18 15:45 98.1 115 18 139/60 (86) Capillary Refill : Less Than 3 Seconds General Appearance: No Apparent Distress, WD/WN, Chronically ill, Obese Respiratory: Chest Non Tender, No Accessory Muscle Use, No Respiratory Distress , Crackles, Decreased Breath Sounds, Wheezing Cardiovascular: Regular Rate, Rhythm, No Edema, No Gallop, No JVD, No Murmur, Normal Peripheral Pulses Neurologic/Psychiatric: Alert, Oriented x3, No Motor/Sensory Deficits, Normal Mood/Affect Results/Procedures Lab Laboratory Tests 10/05/18 05:54 Patient resulted labs reviewed. Assessment/Plan Assessment and Plan Assess & Plan/Chief Complaint Assessment: Status asthmaticus failed outpatient treatment Sleep apnea maintained on CPAP machine Obesity failed gastric sleeve Anxiety OCD Depression Insomnia Plan: IV steroids Pulmonology consultation is appreciated Likely discharge tomorrow Diagnosis/Problems Diagnosis/Problems (1) Acute asthma exacerbation Status: Acute Qualifiers: Asthma severity: unspecified severity Asthma persistence: unspecified Qualified Codes: J45.901 - Unspecified asthma with (acute) exacerbation (2) Hypoxia Status: Acute (3) Hypokalemia Onset Date: 11/02/2013 Status: Acute (4) Anemia Onset Date: 11/02/2013 Status: Chronic Clinical Quality Measures DVT/VTE Risk/Contraindication: Risk Factor Score Per Nursin RFS Level Per Nursing on Admit: 2=Moderate LAUREL KWONG MEDICAL STUDENT 10/05/18 1110: Subjective Subjective/Events-last exam Pt feeling better Pt states SOB has improved some Pt still has ROSE Objective Exam General Appearance: No Apparent Distress, WD/WN HEENT: PERRL/EOMI Neck: Full Range of Motion, Supple Respiratory: No Accessory Muscle Use, No Respiratory Distress, Wheezing Cardiovascular: Regular Rate, Rhythm, No Murmur Neurologic/Psychiatric: Alert, Oriented x3 Assessment/Plan Assessment and Plan Assess & Plan/Chief Complaint Assessment: asthma exacerbation lactic acidosis - improving Plan start home meds continue buoneb q6h STEPHANIE MCNALLY DO Oct 05, 2018 09:32 LAUREL KWONG MEDICAL STUDENT Oct 05, 2018 11:10
[2018-10-05] MEDS ORDERED: PATIENT MAY USE OWN MEDS, ALL MC SCH (09:45)
[2018-10-05] MEDS ORDERED: BENZONATATE 100 MG (TESSALON) CAPSULE PO PRN (10:15)
[2018-10-05] MEDS ORDERED: RT-ALBUTEROL/IPRATROPIUM 3 ML (DUONEB) VIAL INH PRN (10:30)
[2018-10-05] MEDS: MELOXICAM 15MG TABLET PO SCH (11:34)
[2018-10-05] MEDS: DULoxetine 30 MG (CYMBALTA) CAP PO SCH ×2 (11:44→20:31)
[2018-10-05] MEDS ORDERED: LORazepam 1 MG (ATIVAN) TAB PO PRN (12:00)
[2018-10-05] MEDS ORDERED: RT-ALBUTEROL/IPRATROPIUM 3 ML (DUONEB) VIAL INH SCH (14:00)
[2018-10-05 15:45] VITALS: BP 139/60
--- NOTE | 2018-10-05 17:21 | NUR ---
PATIENT WANTS TO TAKE HER WELLBUTRIN TONIGHT WHEN SHE TAKES HER OTHER MEDICATIONS. WILL PASS THIS ALONG TO [facility] TENDER RN.
[2018-10-05] MEDS: RT-ADVAIR HFA 115/21 MCG PER PUFF IH SCH (20:10)
[2018-10-05] MEDS ORDERED: ZOLPIDEM 10 MG PO SCH (21:00)
[2018-10-06 00:03] VITALS: BP 146/68
[2018-10-06] MEDS: RT-ALBUTEROL/IPRATROPIUM 3 ML (DUONEB) VIAL INH SCH ×2 (01:34→09:36)
[2018-10-06 04:09] VITALS: BP 139/73
[2018-10-06 05:45] LABS: BASOPHILS % (AUTO) 0 % (0-10); EOSINOPHILS % (AUTO) 0 % (0-10); HEMATOCRIT 30 % (35-52); HEMOGLOBIN 8.5 G/DL (11.5-16.0); LYMPHOCYTES # (AUTO) 1.1 X 10^3 (1.0-4.0); LYMPHOCYTES % (AUTO) 8 % (12-44); MEAN CORPUSCULAR HEMOGLOBIN 20 PG (25-34); MEAN CORPUSCULAR HGB CONC 29 G/DL (32-36); MEAN CORPUSCULAR VOLUME 70 FL (80-99); MEAN PLATELET VOLUME 10.8 FL (7.4-10.4); MONOCYTES # (AUTO) 0.5 X 10^3 (0.0-1.0); MONOCYTES % (AUTO) 4 % (0-12); NEUTROPHILS # (AUTO) 12.3 X 10^3 (1.8-7.8); NEUTROPHILS % (AUTO) 88 % (42-75); PLATELET COUNT 339 10^3/uL (130-400); RED BLOOD COUNT 4.27 10^6/uL (4.35-5.85); RED CELL DISTRIBUTION WIDTH 19.8 % (10.0-14.5); WHITE BLOOD COUNT 13.9 10^3/uL (4.3-11.0)
[2018-10-06 06:03] LABS: ALANINE AMINOTRANSFERASE 15 U/L (0-55); ALBUMIN 3.7 GM/DL (3.2-4.5); ALKALINE PHOSPHATASE 83 U/L (40-136); BILIRUBIN,TOTAL 0.2 MG/DL (0.1-1.0); BUN/CREATININE RATIO 22; CALCIUM 8.6 MG/DL (8.5-10.1); CARBON DIOXIDE 21 MMOL/L (21-32); CHLORIDE 109 MMOL/L (98-107); CREATININE SERUM 0.83 MG/DL (0.60-1.30); GFR ESTIMATED > 60; GLUCOSE 125 MG/DL (70-105); POTASSIUM 4.5 MMOL/L (3.6-5.0); SODIUM 140 MMOL/L (135-145); TOTAL PROTEIN 6.3 GM/DL (6.4-8.2)
[2018-10-06] MEDS: methylPREDNISolone 40 MG/ML (Solu-MEDROL) VIAL IV SCH (06:07)
[2018-10-06 08:00] VITALS: BP 146/65
[2018-10-06] MEDS: buPROPion SR 150 MG (WELLBUTRIN SR) TAB PO SCH (08:04)
[2018-10-06] MEDS: DULoxetine 30 MG (CYMBALTA) CAP PO SCH (08:06)
[2018-10-06] MEDS: MELOXICAM 15MG TABLET PO SCH (08:07)
[2018-10-06] MEDS: RT-ADVAIR HFA 115/21 MCG PER PUFF IH SCH (09:36)
--- NOTE | 2018-10-06 09:58 | Discharge Summary-Hospitalist ---
STEPHANIE MCNALLY DO 10/06/18 0958: Diagnosis/Chief Complaint Date of Admission Oct 04, 2018 at 11:24 Date of Discharge Admission Diagnosis Assessment: Status asthmaticus failed outpatient treatment Sleep apnea maintained on CPAP machine Obesity failed gastric sleeve Anxiety OCD Depression Insomnia Plan: IV steroids Pulmonology consultation is appreciated Likely discharge tomorrow Discharge Diagnosis (1) Acute asthma exacerbation Status: Acute (2) Hypoxia Status: Chronic (3) Hypokalemia Onset Date: 11/02/2013 Status: Resolved (4) Anemia Onset Date: 11/02/2013 Status: Chronic Discharge Summary Discharge Physical Exam Allergies: Coded Allergies: morphine (Verified Allergy, Mild, 10/05/18) itch Vitals & I&Os Vital Signs Date Time Temp Pulse Resp B/P (MAP) Pulse Ox O2 Delivery O2 Flow Rate FiO2 10/06/18 09:36 92 Room Air 10/06/18 08:00 3.00 10/06/18 08:00 97.9 76 20 146/65 (92) General Appearance: No Apparent Distress, WD/WN, Chronically ill, Obese Respiratory: Chest Non Tender, Normal Breath Sounds, No Accessory Muscle Use, No Respiratory Distress, Crackles (subtle) Cardiovascular: Regular Rate, Rhythm, No Edema, No Gallop, No JVD, No Murmur, Normal Peripheral Pulses Neurologic/Psychiatric: Alert, Oriented x3, No Motor/Sensory Deficits, Normal Mood/Affect Hospital Course Patient had an uncomplicated hospital course. She was admitted and placed on O2 and IV steroids and Nebs. Pt responded rapidly. Home meds restarted. O2 evaluation will be performed to evaluate home O2 necessity. Pt was deemed stable at [facility] along with Dr Chavez in agreement. Labs (last 24 hrs) Laboratory Tests 10/06/18 05:17: White Blood Count 13.9H, Red Blood Count 4.27L, Hemoglobin 8.5L, Hematocrit 30L , Mean Corpuscular Volume 70L, Mean Corpuscular Hemoglobin 20L, Mean Corpuscular Hemoglobin Concent 29L, Red Cell Distribution Width 19.8H, Platelet Count 339, Mean Platelet Volume 10.8H, Neutrophils (%) (Auto) 88H, Lymphocytes ( %) (Auto) 8L, Monocytes (%) (Auto) 4, Eosinophils (%) (Auto) 0, Basophils (%) ( Auto) 0, Neutrophils # (Auto) 12.3H, Lymphocytes # (Auto) 1.1, Monocytes # (Auto ) 0.5, Eosinophils # (Auto) 0.0, Basophils # (Auto) 0.0, Sodium Level 140, Potassium Level 4.5, Chloride Level 109H, Carbon Dioxide Level 21, Anion Gap 10 , Blood Urea Nitrogen 18, Creatinine 0.83, Estimat Glomerular Filtration Rate > 60, BUN/Creatinine Ratio 22, Glucose Level 125H, Calcium Level 8.6, Corrected Calcium 8.8, Total Bilirubin 0.2, Aspartate Amino Transf (AST/SGOT) 14, Alanine Aminotransferase (ALT/SGPT) 15, Alkaline Phosphatase 83, Total Protein 6.3L, Albumin 3.7 Microbiology 10/04/18 Blood Culture - Preliminary, Resulted No growth 10/04/18 Influenza Types A,B Antigen (MAIRA) - Final, Complete 10/04/18 Urine Culture - Final, Complete See Report Patient resulted labs reviewed. Pending Labs Laboratory Tests 10/06/18 05:17: White Blood Count 13.9, Red Blood Count 4.27, Hemoglobin 8.5, Hematocrit 30, Mean Corpuscular Volume 70, Mean Corpuscular Hemoglobin 20, Mean Corpuscular Hemoglobin Concent 29, Red Cell Distribution Width 19.8, Platelet Count 339, Mean Platelet Volume 10.8, Neutrophils (%) (Auto) 88, Lymphocytes (%) (Auto) 8, Monocytes (%) (Auto) 4, Eosinophils (%) (Auto) 0, Basophils (%) (Auto) 0, Neutrophils # (Auto) 12.3, Lymphocytes # (Auto) 1.1, Monocytes # (Auto) 0.5, Eosinophils # (Auto) 0.0, Basophils # (Auto) 0.0, Sodium Level 140, Potassium Level 4.5, Chloride Level 109, Carbon Dioxide Level 21, Anion Gap 10, Blood Urea Nitrogen 18, Creatinine 0.83, Estimat Glomerular Filtration Rate > 60, BUN/ Creatinine Ratio 22, Glucose Level 125, Calcium Level 8.6, Corrected Calcium 8.8 , Total Bilirubin 0.2, Aspartate Amino Transf (AST/SGOT) 14, Alanine Aminotransferase (ALT/SGPT) 15, Alkaline Phosphatase 83, Total Protein 6.3, Albumin 3.7 Discussion & Recommendations Discharge Planning: <30 minutes discharge planning Discharge Home Medications: Active Scripts Active Prednisone 10 Mg Tab.ds.pk 10 Mg PO DAILY Take 6 tabs(60mg)daily,decrease by 1 tab(10MG)daily. Reported Symbicort 160-4.5 Mcg Inhaler (Budesonide/Formoterol Fumarate) 10.2 Gm Hfa.aer.ad 2 Puff IH BID Iprat-Albut 0.5-3(2.5) mg/3 ml (Ipratropium/Albuterol Sulfate) 3 Ml Ampul.neb 3 Ml IH Q4H PRN Cymbalta (Duloxetine HCl) 30 Mg Capsule.dr 30 Mg PO BID Wellbutrin Sr (Bupropion HCl) 150 Mg Tablet.er 150 Mg PO BID Lorazepam 1 Mg Tablet 1 Mg PO BID PRN Meloxicam 15 Mg Tablet 15 Mg PO DAILY Azithromycin 250 Mg Tablet 250 Mg PO UD FILLED #6 10-01-18 TAKE 2 TABLETS ON DAY ONE THEN TAKE 1 TABLET DAILY FOR FOUR MORE DAYS Tessalon Perles (Benzonatate) 100 Mg Capsule 100 Mg PO TID PRN Ventolin Hfa (Albuterol Sulfate) 18 Gm Hfa.aer.ad 2 Puff IH Q4H PRN Zolpidem Tartrate 10 Mg Tablet 10 Mg PO HS Instructions to patient/family Please see electronic discharge instructions given to patient. Clinical Quality Measures DVT/VTE Risk/Contraindication: Risk Factor Score Per Nursin RFS Level Per Nursing on Admit: 2=Moderate LAUREL KWONG A MEDICAL STUDENT 10/06/18 1003: Discharge Summary Discharge Physical Exam Allergies: Coded Allergies: morphine (Verified Allergy, Mild, 10/05/18) itch General Appearance: No Apparent Distress, WD/WN HEENT: PERRL/EOMI Respiratory: Lungs Clear, No Respiratory Distress Neurologic/Psychiatric: Alert, Oriented x3 Hospital Course This is a 48 year old female who was admitted on 10/04 for acute asthma exacerbation and lactic acidosis. During the patients 3 day stay, the pt was given IV solu-medrol and duoneb q4h and IVF which improved the patients condition. Pt's wheezing and respiratory distress resolved. Pt was found to have anemia and was placed on iron supplementation. Problem Qualifiers (1) Acute asthma exacerbation: Asthma severity: unspecified severity Asthma persistence: unspecified Qualified Codes: J45.901 - Unspecified asthma with (acute) exacerbation (2) Anemia: Anemia type: unspecified type Qualified Codes: D64.9 - Anemia, unspecified STEPHANIE MCNALLY DO Oct 06, 2018 09:58 LAUREL KWONG MEDICAL STUDENT Oct 06, 2018 10:03
[2018-10-06] MEDS ORDERED: PRED10TA22 PO (10:35)
--- NOTE | 2018-10-06 11:22 | Pulmonary Progress Note ---
Subjective Date Seen by a Provider: Oct 06, 2018 Time Seen by a Provider: 11:28 Subjective/Events-last exam PT feels improved. She walked halls and her Sp02 did not drop. Sepsis Event Evaluation Height, Weight, BMI Height: 5'3.00" Weight: 328lbs. 6.0oz. 148.111436yw; 57.3 BMI Method:Stated Focused Exam Lactate Level 10/04/18 08:30: Lactic Acid Level 2.93*H 10/04/18 12:16: Lactic Acid Level 2.05*H Exam Exam Vital Signs Date Time Temp Pulse Resp B/P (MAP) Pulse Ox O2 Delivery O2 Flow Rate FiO2 10/06/18 09:36 92 Room Air 10/06/18 08:00 Nasal Cannula 3.00 10/06/18 08:00 97.9 76 20 146/65 (92) 90 Room Air 10/06/18 07:00 69 10/06/18 04:09 98.5 76 18 139/73 (95) 95 Nasal Cannula 3.50 10/06/18 01:34 90 NIV CPAP 3.00 10/06/18 01:00 105 10/06/18 00:03 98.4 73 20 146/68 (94) 95 Nasal Cannula 3.50 10/05/18 20:25 97 Nasal Cannula 3.00 10/05/18 20:10 97 Room Air 3.00 10/05/18 19:00 82 10/05/18 16:04 94 Room Air 3.00 10/05/18 15:45 98.1 115 18 139/60 (86) 94 Nasal Cannula 3.50 10/05/18 13:18 72 I & O 10/06/18 07:00 Intake Total 3730 ml Output Total 4000 ml Balance -270 ml Height & Weight Height: 5'3.00" Weight: 328lbs. 6.0oz. 148.175201yk; 57.3 BMI Method:Stated General Appearance: No Apparent Distress, WD/WN, Chronically ill, Obese HEENT: PERRL/EOMI Neck: Full Range of Motion, Normal Inspection, Non Tender, Supple, Carotid Bruit Respiratory: Chest Non Tender, Normal Breath Sounds, No Accessory Muscle Use, No Respiratory Distress, Crackles (subtle) Cardiovascular: Regular Rate, Rhythm, No Edema, No Gallop, No JVD, No Murmur, Normal Peripheral Pulses Capillary Refill: Less Than 3 Seconds Gastrointestinal: normal bowel sounds, non tender, soft Extremity: Normal Capillary Refill, Normal Inspection, Normal Range of Motion, Non Tender, No Calf Tenderness, No Pedal Edema Neurologic/Psychiatric: Alert, Oriented x3, No Motor/Sensory Deficits, Normal Mood/Affect Skin: Normal Color, Warm/Dry Lymphatic: No Adenopathy Results Lab Laboratory Tests 10/05/18 05:54 10/06/18 05:17 Assessment/Plan Assessment/Plan Asthma AE -solumedrol 40 Q6 - Change to prednisone taper -SVNS -Influenza A and B were negative -Telemetry -advair Hypoxia -Oxygen Leukocytosis - secondary to steroids. Atelectasis -CXR showed atelectasis SVETLANA -CPAP Lactic acid elevation -Repeat today Microcytic anemia -Iron replacement Obesity -Discussed weight loss PT is ok for discharge from pulmonary standpoint. I will f/u in my office in 1- 3wks KRISTIE MARCH DO Oct 06, 2018 11:22
[2018-10-06 12:00] VITALS: BP 111/61
[2018-10-06 14:05] VITALS: BP 111/61
[2018-10-07] MEDS ORDERED: predniSONE 10 MG TAB PO SCH (09:00)
--- OUTSIDE RECORDS SUMMARY | 2018-10-07 10:16 | XMS REPORT ---
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 Role Phone CRISTY MIRTA Unavailable PROBLEMS Type Condition ICD9-CM Code [id number] Code Onset Dates Condition Status SNOMED Code Problem OCD (obsessive compulsive disorder) F42 Active 875359228 Problem Adjustment disorder with depressed mood F43.21 Active 07865819 Problem Chronic cellulitis L03.90 Active 433234741 Problem Eating disorder, unspecified F50.9 Active 92024609 Problem Insomnia G47.00 Active 538270882 Problem Body mass index (BMI) of 40.0-44.9 in adult Z68.41 Active 646905509 Problem Moderate persistent asthma without complication J45.40 Active 064464250 Problem Other obesity due to excess calories E66.09 Active 77688399573467 Problem ROBINA (generalized anxiety disorder) F41.1 Active 38885532 Problem Moderate episode of recurrent major depressive disorder F33.1 Active 109112125 Problem Obesity (BMI 30.0-34.9) E66.9 Active 687349960571480 Problem Asthma J45.909 Active 647621597 Problem Anxiety F41.9 Active 61404535 Problem Severe persistent asthma with acute exacerbation J45.51 Active 594007280 Problem BMI 45.0-49.9, adult Z68.42 Active 396032748 Problem Binge eating disorder F50.81 Active 189262225 Problem COPD exacerbation J44.1 Active 149524879 Problem Other chronic pain G89.29 Active 95009834 Problem Iron deficiency anemia, unspecified iron deficiency anemia type D50.9 Active 54402344 Problem SVETLANA treated with BiPAP G47.33 Active 33066265 Problem Reactive depression F32.9 Active 28963373 Problem Habitual self-excoriation F42.4 Active 702571911 Problem Psychophysiological insomnia F51.04 Active 057911116 Problem Asthma exacerbation J45.901 Active 073193794 Problem Seasonal allergic rhinitis due to pollen J30.1 Active 21270103 ALLERGIES No Information ENCOUNTERS Encounter Location Date Diagnosis [place] [id number] [place] [address] 13531- 3949 Aug, [place] [id number] [place] [address] 90047- 4678 Jul, ROBINA (generalized anxiety disorder) F41.1 ; Moderate episode of recurrent major depressive disorder F33.1 ; Binge eating disorder F50.81 and BMI 50.0-59.9, adult Z68.43 [place] [address] 84143- 3797 Jul, ROBINA (generalized anxiety disorder) F41.1 [place] [id number] [place] [address] 42699- 7136 Jun, [place] [address] 06355- 6256 Jun, ROBINA (generalized anxiety disorder) F41.1 [place] [id number] [place] [address] 63388- 0387 May, ROBINA (generalized anxiety disorder) F41.1 ; Moderate episode of recurrent major depressive disorder F33.1 ; Habitual self-excoriation F42.4 and Binge eating disorder F50.81 [place] [id number] [place] [address] 90048- 1805 May, [place] [id number] [place] [address] 90968- 0214 Apr, ROBINA (generalized anxiety disorder) F41.1 ; Moderate episode of recurrent major depressive disorder F33.1 ; Binge eating disorder F50.81 ; Excoriation T14.8XXA and BMI 45.0-49.9, adult Z68.42 [place] [id number] [place] [address] 44625- 0615 Apr, [place] [id number] [place] [address] 80993- 7587 Apr, [facility] [id number] [place] [address] 60443- 2621 Apr, Diarrhea, unspecified type R19.7 [facility] [id number] [place] [address] 47951- 1445 Apr, Diarrhea, unspecified type R19.7 [place] [id number] [place] [address] 17247- 3577 Apr, ROBINA (generalized anxiety disorder) F41.1 ; Moderate episode of recurrent major depressive disorder F33.1 ; Excoriation T14.8XXA ; Binge eating disorder F50.81 and BMI 45.0-49.9, adult Z68.42 [place] [address] [place] [address] 64340- 4662 Mar, Pain in left knee M25.562 ; Other chronic pain G89.29 and Body mass index (BMI) of 40.0-44.9 in adult Z68.41 [facility] [address] [place] [address] 43406 -9422 Mar, Other specified bacterial agents as the cause of diseases classified elsewhere B96.89 ; Local infection of the skin and subcutaneous tissue, unspecified L08.9 ; Fever in other diseases R50.81 and BMI 50.0-59.9, adult Z68.43 [place] [address] [place] [address] 66231- 6621 Mar, Habitual self-excoriation F42.4 ; Anxiety F41.9 and Psychophysiological insomnia F51.04 [place] [id number] [place] [address] 68061- 4586 Feb, [place] [id number] [place] [address] 87482- 9853 Feb, Anxiety F41.9 and Psychophysiological insomnia F51.04 [place] [id number] [place] [address] 69085- 9304 January, Acute pain of left knee M25.562 and BMI 50.0-59.9, adult Z68.43 [place] [id number] [place] [address] 68664- 2624 January, [place] [address] 39948- 8107 January, COPD exacerbation J44.1 and Severe persistent asthma with acute exacerbation J45.51 [place] [address] 55231- 4893 January, Anxiety F41.9 and Psychophysiological insomnia F51.04 [place] [address] 60025- 2919 January, COPD exacerbation J44.1 and Left medial knee pain M25.562 [place] [address] 99317- 9350 Dec, COPD with exacerbation J44.1 ; BMI 45.0-49.9, adult Z68.42 ; SVETLANA treated with BiPAP G47.33 and Psychophysiological insomnia F51.04 [place] [address] 23865- 7995 Dec, [place] [id number] [place] [address] 68591- 6870 Dec, Acute pain of left knee M25.562 ; Unspecified fall, initial encounter W19.XXXA ; Unspecified place in unspecified non-institutional (private ) residence as the place of occurrence of the external cause Y92.009 ; BMI 45.0- 49.9, adult Z68.42 and Severe persistent asthma with acute exacerbation J45.51 [place] [id number] [place] [address] 61229- 0223 Dec, Anxiety F41.9 and Psychophysiological insomnia F51.04 [place] [id number] [place] [address] 77291- 7331 Nov, Psychophysiological insomnia F51.04 [facility] [id number] [place] [address] 57512- 6335 Oct, [facility] [address] 72072- 1341 Oct, Anxiety F41.9 [place] [address] 84824- 5664 Oct, [facility] [address] 02074- 0805 Oct, Severe persistent asthma with acute exacerbation J45.51 ; Tobacco abuse Z72.0 and BMI 45.0-49.9, adult Z68.42 [place] [address] 30735- 6388 Oct, Psychophysiological insomnia F51.04 [place] [address] 08902- 6352 Sep, Anxiety F41.9 [place] [address] 08035- 7244 Sep, Anxiety F41.9 and Habitual self-excoriation F42.4 [place] [address] 61345- 5206 Sep, Psychophysiological insomnia F51.04 [place] [address] 68755- 0814 Aug, Anxiety F41.9 [facility] [id number] [place] [address] 71896- 2075 Aug, Asthma J45.909 [place] [address] 33348- 1143 Aug, Anxiety F41.9 [facility] [id number] [place] [address] 91141 -5712 Aug, Acute bronchitis, unspecified organism J20.9 [facility] [address] [place] [address]- 0130 Aug, Psychophysiological insomnia F51.04 [place] [address] 22878- 7937 Jul, Therapeutic drug monitoring Z51.81 [place] [id number] [place] [address] 14955- 0673 Jul, [place] [address] 77358- 9578 Jul, Habitual self-excoriation F42.4 [place] [address] 73947- 9611 08 Jul, 2017 [place] [address] 51591- 0941 Jul, [place] [address] 37156- 1049 31 Jun, 2017 SVETLANA treated with BiPAP G47.33 ; Moderate persistent asthma without complication J45.40 ; Anxiety F41.9 ; Other obesity due to excess calories E66.09 ; Body mass index (BMI) of 40.0-44.9 in adult Z68.41 ; Psychophysiological insomnia F51.04 and Encounter for immunization Z23 [place] [id number] [place] [address] 61422- 6451 Jun, [place] [address] 78394- 2592 Jun, Habitual self-excoriation F42.4 ; Adjustment disorder with depressed mood F43.21 ; Psychophysiological insomnia F51.04 and Eating disorder , unspecified F50.9 [place] [address] 93405- 4163 10 Jun, 2017 Visit for TB skin test Z11.1 [place] [id number] [place] [address] 68279- 3079 Jun, Habitual self-excoriation F42.4 and Psychophysiological insomnia F51.04 [facility] [address] [place] [address] 98801- 6730 Jun, Asthma J45.909 [facility] [id number] [place] [address] 17923- 8670 May, Asthma J45.909 [facility] [id number] [place] [address] 10281- 4971 May, [facility] [id number] [place] [address] 26149- 3192 May, Habitual self-excoriation F42.4 and Psychophysiological insomnia F51.04 [place] [id number] [place] [address] 46441- 7464 Apr, Habitual self-excoriation F42.4 ; Adjustment disorder with depressed mood F43.21 ; Psychophysiological insomnia F51.04 and Eating disorder , unspecified F50.9 [place] [id number] [place] [address] 11696- 0414 Apr, [place] [address] [place] [address] 14909- 1669 Apr, Habitual self-excoriation F42.4 ; Adjustment disorder with depressed mood F43.21 ; Psychophysiological insomnia F51.04 and Other fdc (current) drug therapy Z79.899 [place] [address] [place] [address] 38616- 9722 Mar, [facility] [id number] [place] [address] 95146- 8655 Mar, [place] [id number] [place] [address] 06536- 6471 Mar, Anxiety F41.9 [facility] [address] [place] [address] 21810- 3315 Feb, Asthma J45.909 [facility] [id number] [place] [address] 26714- 9489 Feb, [place] [address] [place] [address] 61190- 4080 Feb, Anxiety F41.9 [place] [id number] [place] [address] 27609- 3307 Feb, Asthma exacerbation J45.901 and Seasonal allergic rhinitis due to pollen J30.1 [place] [address] 72298- 2799 January, [place] [id number] [place] [address] 52088- 3909 January, Anxiety F41.[address] 59229- 6977 Dec, Therapeutic drug monitoring Z51.81 [place] [id number] [place] [address] 10536- 4187 Dec, Anxiety F41.9 and Asthma J45.909 [place] [id number] [place] [address] 47463- 5780 Nov, Asthma J45.909 [place] [id number] [place] [address] 13624- 6325 Nov, Anxiety F41.9 [place] [id number] [place] [address] 43517- 1314 Oct, Asthma exacerbation J45.901 ; Pain in right knee M25.561 ; Pain in left knee M25.562 and Open wound of eyebrow, left, subsequent encounter S01.102D [place] [address] [place] [address] 44137- 5260 16 Oct, 2016 [facility] [address] [place] [address] 94516 -2681 Oct, Other viral agents as the cause of diseases classified elsewhere B97.89 and Acute upper respiratory infection, unspecified J06.9 [place] [id number] [place] [address] 85757- 4633 10 Oct, 2016 [place] [id number] [place] [address] 55557- 0567 Oct, [facility] [id number] [place] [address] 03377- 2226 02 Oct, 2016 Anxiety F41.9 [place] [id number] [place] [address] 78449- 6624 Sep, [place] [id number] [place] [address] 53618- 7247 Sep, SVETLANA treated with BiPAP G47.33 and Asthma J45.909 [place] [id number] [place] [address] 08865- 8481 Sep, [place] treated with BiPAP G47.33 ; Obesity (BMI 30.0-34.9) E66.9 and Reactive depression F32.9 [place] [id number] [place] [address] 38284- 8885 Sep, Anxiety F41.9 [place] [id number] [place] [address] 11218- 6608 Aug, [place] [id number] [place] [address] 95930- 3409 Aug, Insomnia G47.00 [place] [id number] [place] [address] 43452- 1468 Aug, [place] [id number] [place] [address] 20910- 9745 Aug, SVETLANA treated with BiPAP G47.33 and On supplemental oxygen therapy Z99.81 [place] [id number] [place] [address] 63048- 2256 Jul, On supplemental oxygen therapy Z99.81 ; Obesity (BMI 30.0- 34.9) E66.9 and SVETLANA treated with BiPAP G47.33 [place] [id number] [place] [address] 42865- 2059 17 Jul, 2016 Mucus plugging of bronchi J98.09 ; On supplemental oxygen therapy Z99.81 ; Acute midline thoracic back pain M54.6 and SVETLANA treated with BiPAP G47.33 [facility] [id number] [place] [address] 97528- 3102 16 Jul, 2016 [facility] [address] 97184- 2456 Jul, [facility] [id number] [place] [address] 81510- 2171 Jul, [facility] [address] 49035- 3181 May, [place] [id number] [place] [address] 23834- 3689 May, [facility] [address] 38727- 2997 Apr, [facility] [id number] [place] [address] 90989- 3636 Apr, [facility] [id number] [place] [address] 66045- 8353 Apr, Insomnia G47.00 ; Anemia D64.9 ; OCD (obsessive compulsive disorder) F42 ; Anxiety F41.9 ; Asthma J45.909 and Obesity (BMI 30.0-34.9) E66.9 [facility] [id number] [place] [address] 17130- 7244 Feb, [facility] [id number] [place] [address] 31403- 3961 Feb, Insomnia G47.00 [facility] [id number] [place] [address] 84226- 3688 Nov, [facility] [id number] [place] [address] 41206- 8566 Nov, [place] [address] [address]- 5548 Nov, [facility] [id number] [place] [address] 72217- 4497 Nov, OCD (obsessive compulsive disorder) F42 ; Anxiety F41.9 ; Insomnia G47.00 ; Anemia D64.9 and Asthma J45.909 [facility] [id number] [place] [address] 82416- 1447 Nov, [facility] [id number] [place] [address] 42214- 5169 Oct, [facility] [id number] [place] [address] 75075- 9712 Aug, OCD (obsessive compulsive disorder) F42 ; Chronic cellulitis L03.90 ; Anxiety F41.9 ; Insomnia G47.00 ; Anemia D64.9 and Asthma J45.909 [facility] [address] [place] [address] 29613- 2274 Aug, [facility] [id number] [place] [address] 94054- 0434 Jul, [facility] [id number] [place] [address] 60890- 0200 Jul, OCD (obsessive compulsive disorder) F42 ; Chronic cellulitis L03.90 ; Anxiety F41.9 ; Insomnia G47.00 and Anemia D64.9 [facility] [address] [address]- 2585 Dec, [facility] [address] [place] [address] 17931- 1460 Dec, [facility] [address] [place] [address] 69369- 9398 Aug, [facility] [address] [address]- 6598 Aug, [facility] [id number] [place] [address]- 8649 14 Aug, 2014 [facility] [place] [facility] [address] [id number] [place] [address]- 3374 Aug, [facility] [place] [facility] [address] [id number] [place] [address]- 3999 Aug, [facility] [place] [facility] [address] [id number] [place] [address]- 4362 Aug, [facility] [place] [facility] [address] [id number] [place] [address]- 5161 Aug, [facility] [place] [facility] [address] [id number] [place] [address]- 3280 Jul, [facility] [place] [facility] [address] [id number] [place] [address]- 0754 Jul, [facility] [place] [facility] [address] [id number] [place] [address]- 6024 Jul, [facility] [place] [facility] [address] [id number] [place] [address]- 9581 Jul, [facility] [place] [facility] [address] [id number] [place] [address]- 1840 Apr, [facility] [place] [facility] [address] [id number] [place] [address]- 1767 Apr, [facility] [place] [facility] [address] [id number] [place] [address]- 3252 Feb, [facility] [place] [facility] [address] [id number] [place] [address]- 4759 Feb, [facility] [place] [facility] [address] [id number] [place] [address]- 2783 Feb, [facility] [place] [facility] [address] [id number] [place] [address]- 3003 Feb, [facility] [place] [facility] [address] [id number] [place] [address]- 7419 January, [facility] [place] [facility] [address] [id number] [place] [address]- 4242 January, [facility] [place] [facility] [address] [id number] [place] [address]- 0180 January, [facility] [place] [facility] [address] [id number] [place] [address]- 4650 Dec, [facility] [place] [facility] [address] [id number] [place] [address]- 3467 Dec, [facility] [place] [facility] [address] [id number] [place] [address]- 1418 Dec, [facility] [place] [facility] [address] [id number] [place] [address]- 9057 Dec, [facility] [place] [facility] [address] [id number] [place] [address]- 2976 Nov, [facility] [place] [facility] [address] [id number] [place] [address]- 4936 Nov, [facility] [place] [facility] [address] [id number] [place] [address]- 7818 Nov, [facility] [place] [facility] [address] [id number] [place] [address]- 0845 Nov, [facility] [place] [facility] [address] [id number] [place] [address]- 4767 Nov, [facility] [place] [facility] [address] [id number] [place] [address]- 8131 Nov, [facility] [place] [facility] [address] [id number] [place] [address]- 9827 Oct, [facility] [place] [facility] [address] [id number] [place] [address]- 1486 Oct, [facility] [place] [facility] [address] [id number] [place] [address]- 2349 Oct, [facility] [place] [facility] [address] [id number] [place] [address]- 2940 Oct, [facility] [place] [facility] [address] [id number] [place] [address]- 8506 Oct, [facility] [place] [facility] [address] [id number] [place] [address] 2546 Oct, [facility] [place] [facility] [address] [id number] [place] [address]- 8266 Oct, [facility] [place] [facility] [address] [id number] [place] [address] 2546 Oct, [facility] [place] [facility] [address] [id number] [place] [address]- 7456 Oct, [facility] [place] [facility] [address] [facility] [id number] [place] [address]- 5546 Oct, [facility] [place] [facility] [address] [id number] [place] [address]- 9401 Oct, [facility] [place] [facility] [address] [id number] [place] [address]- 8118 Oct, [facility] [place] [facility] [address] [facility] [place] [id number] [place] [address]- 0060 Sep, [facility] [place] [facility] [address] [facility] [place] [id number] [place] [address]- 8647 Sep, [facility] [place] [facility] [address] [facility] [place] [id number] [place] [address]- 5573 Sep, [facility] [place] [facility] [address] [id number] [place] [address] 2541 Sep, [facility] [place] [facility] [address] [id number] [place] [address]- 7496 Aug, [facility] [place] [facility] [address] [id number] [place] [address] Aug, [facility] [place] [facility] [address] [facility] [place] [id number] [place] [address] Aug, [facility] [address] [facility] [place] [id number] [address] Aug, [facility] [address] [facility] [place]] [id number] [place] [address] Aug, [facility] [address] [facility] [place]] [id number] [place] [address] Aug, [facility] [address] [facility] [place] [facility] [id number] [place] [address] Aug, IMMUNIZATIONS No Known Immunizations SOCIAL HISTORY Never Assessed REASON FOR VISIT f/sukhdeep Juarez RN PLAN OF CARE Activity Details Follow Up 2 Months Reason: VITAL SIGNS Height 65 in 2018-08-16 Weight 308 lbs 2018-08-16 Heart Rate 84 bpm 2018-08-16 Respiratory Rate 20 2018-08-16 BMI 51.25 kg/m2 2018-08-16 Blood pressure systolic 118 mmHg 2018-08-16 Blood pressure diastolic 68 mmHg 2018-08-16 MEDICATIONS Medication Instructions Dosage Frequency Start Date End Date Duration Status Wellbutrin SR 150 MG Orally twice a day 1 tablet 12h 30 days Active Ativan 1 MG Orally twice a day as needed 1 tablet 30 days Active Cymbalta 30 MG Orally Once a day 1 capsule every morning for one week then take 2 caps every morning 24h Jul, 30 day(s) Active Meloxicam 15 MG Orally Once a day 1 tablet 24h 30 Active Ventolin HFA 90 MCG/ACT Inhalation every 4 hrs 2 puffs as needed 4h Active Symbicort 160-4.5 mcg/act Inhalation Twice a day 2 puffs 12h 27 Oct, 2013 Active Zolpidem Tartrate 10 MG Orally at bedtime as needed 1 tablet 30 days Active RESULTS No Results PROCEDURES No Known procedures INSTRUCTIONS MEDICATIONS ADMINISTERED No Known Medications MEDICAL (GENERAL) HISTORY Type Description Date Medical History asthma Medical History anxiety Medical History gastric bypass 2001 Medical History anemia Medical History sleep apnea treated with biPAP Surgical History gastric bypass 2001 Hospitalization History surgery Hospitalization History anemia Hospitalization History sepsis Hospitalization History Acute hypoxic resp distress--[facility] 07/28/16 Hospitalization History Denies any past psychiatric hospitalization
--- OUTSIDE RECORDS SUMMARY | 2018-10-07 10:16 | XMS REPORT ---
Author Author BRICE RAMIREZ [facility] Address [address] [place] [address] Care Team Providers Care Family Psychologist Name Role Phone BRICE RAMIREZ Unavailable PROBLEMS Type Condition ICD9-CM Code ATF35-II Code Onset Dates Condition Status SNOMED Code Problem OCD (obsessive compulsive disorder) F42 Active 609944663 Problem Adjustment disorder with depressed mood F43.21 Active 26674375 Problem Chronic cellulitis L03.90 Active 140710713 Problem Eating disorder, unspecified F50.9 Active 86735085 Problem Insomnia G47.00 Active 924269619 Problem Body mass index (BMI) of 40.0-44.9 in adult Z68.41 Active 413253094 Problem Moderate persistent asthma without complication J45.40 Active 076702829 Problem Other obesity due to excess calories E66.09 Active 69810868482662 Problem ROBINA (generalized anxiety disorder) F41.1 Active 20302430 Problem Moderate episode of recurrent major depressive disorder F33.1 Active 534290750 Problem Obesity (BMI 30.0-34.9) E66.9 Active 202823889345069 Problem Asthma J45.909 Active 906473454 Problem Anxiety F41.9 Active 97662610 Problem Severe persistent asthma with acute exacerbation J45.51 Active 755928700 Problem BMI 45.0-49.9, adult Z68.42 Active 408573937 Problem Binge eating disorder F50.81 Active 712752712 Problem COPD exacerbation J44.1 Active 375419621 Problem Other chronic pain G89.29 Active 08522468 Problem Iron deficiency anemia, unspecified iron deficiency anemia type D50.9 Active 76024344 Problem SVETLANA treated with BiPAP G47.33 Active 52411473 Problem Reactive depression F32.9 Active 98475672 Problem Habitual self-excoriation F42.4 Active 516870718 Problem Psychophysiological insomnia F51.04 Active 226741590 Problem Asthma exacerbation J45.901 Active 815961272 Problem Seasonal allergic rhinitis due to pollen J30.1 Active 11573595 ALLERGIES No Information ENCOUNTERS Encounter Location Date Diagnosis [place] [id number] [place] [address] 58500- 4533 Aug, [place] [id number] [place] [address] 71232- 5925 Jul, [place] [address] 66537- 4709 Jul, ROBINA (generalized anxiety disorder) F41.1 [place] [address] 60130- 2740 Jun, [place] [address] 62514- 4648 Jun, ROBINA (generalized anxiety disorder) F41.1 [place] [address] 24617- 6961 May, ROBINA (generalized anxiety disorder) F41.1 ; Moderate episode of recurrent major depressive disorder F33.1 ; Habitual self-excoriation F42.4 and Binge eating disorder F50.81 [place] [id number] [place] [address] 67029- 5504 May, [place] [id number] [place] [address] 66333- 4362 Apr, ROBINA (generalized anxiety disorder) F41.1 ; Moderate episode of recurrent major depressive disorder F33.1 ; Binge eating disorder F50.81 ; Excoriation T14.8XXA and BMI 45.0-49.9, adult Z68.42 [place] [id number] [place] [address] 08309- 5079 Apr, [place] [id number] [place] [address] 16676- 5781 Apr, [place] [id number] [place] [address] 42805- 1397 Apr, Diarrhea, unspecified type R19.7 [place] [id number] [place] [address] 86696- 4004 Apr, Diarrhea, unspecified type R19.7 [place] [id number] [place] [address] 22205- 6848 Apr, ROBINA (generalized anxiety disorder) F41.1 ; Moderate episode of recurrent major depressive disorder F33.1 ; Excoriation T14.8XXA ; Binge eating disorder F50.81 and BMI 45.0-49.9, adult Z68.42 [place] [id number] [place] [address] 70816- 0808 Mar, Pain in left knee M25.562 ; Other chronic pain G89.29 and Body mass index (BMI) of 40.0-44.9 in adult Z68.41 [facility] [id number] [place] [address] 68628 -4947 Mar, Other specified bacterial agents as the cause of diseases classified elsewhere B96.89 ; Local infection of the skin and subcutaneous tissue, unspecified L08.9 ; Fever in other diseases R50.81 and BMI 50.0-59.9, adult Z68.43 [place] [id number] [place] [address] 44118- 5193 Mar, Habitual self-excoriation F42.4 ; Anxiety F41.9 and Psychophysiological insomnia F51.04 [place] [id number] [place] [address] 25005- 2244 Feb, [place] [id number] [place] [address] 15332- 1771 Feb, Anxiety F41.9 and Psychophysiological insomnia F51.04 [place] [id number] [place] [address] 72419- 1818 January, Acute pain of left knee M25.562 and BMI 50.0-59.9, adult Z68.43 [place] [id number] [place] [address] 92231- 1630 January, [place] [id number] [place] [address] 29270- 4624 January, COPD exacerbation J44.1 and Severe persistent asthma with acute exacerbation J45.51 [place] [id number] [place] [address] 91710- 0872 January, Anxiety F41.9 and Psychophysiological insomnia F51.04 [place] [id number] [place] [address] 58541- 6251 January, COPD exacerbation J44.1 and Left medial knee pain M25.562 [place] [address] 60801- 9594 Dec, COPD with exacerbation J44.1 ; BMI 45.0-49.9, adult Z68.42 ; SVETLANA treated with BiPAP G47.33 and Psychophysiological insomnia F51.04 [place] [id number] [place] [address] 96992- 6692 Dec, [place] [address] 07062- 3295 Dec, Acute pain of left knee M25.562 ; Unspecified fall, initial encounter W19.XXXA ; Unspecified place in unspecified non-institutional (private ) residence as the place of occurrence of the external cause Y92.009 ; BMI 45.0- 49.9, adult Z68.42 and Severe persistent asthma with acute exacerbation J45.51 [place] [address] [place] [address] 37494- 4924 Dec, Anxiety F41.9 and Psychophysiological insomnia F51.04 [place] [address] 63274- 4771 Nov, Psychophysiological insomnia F51.04 [place] [id number] [place] [address] 70834- 7438 Oct, [place] [address] 74267- 2974 Oct, Anxiety F41.9 [place] [address] 84124- 4391 Oct, [facility] [address] 58546- 5820 Oct, Severe persistent asthma with acute exacerbation J45.51 ; Tobacco abuse Z72.0 and BMI 45.0-49.9, adult Z68.42 [facility] [address] 03833- 2487 Oct, Psychophysiological insomnia F51.04 [place] [address] 81182- 4963 Sep, Anxiety F41.9 [place] [address] 30945- 6877 Sep, Anxiety F41.9 and Habitual self-excoriation F42.4 [place] [address] 29322- 3477 Sep, Psychophysiological insomnia F51.04 [place] [address] 72862- 3090 Aug, Anxiety F41.9 [facility] [address] 97541- 2592 Aug, Asthma J45.909 [place] [address] 43525- 7860 Aug, Anxiety F41.9 [facility] [address] 43044 -5289 Aug, Acute bronchitis, unspecified organism J20.9 [facility] [address] 61781- 2964 Aug, Psychophysiological insomnia F51.04 [facility] [address] 08146- 8768 Jul, Therapeutic drug monitoring Z51.81 [place] [id number] [place] [address] 76323- 8302 Jul, [place] [id number] [place] [address] 85457- 2265 Jul, Habitual self-excoriation F42.4 [place] [id number] [place] [address] 29422- 9079 08 Jul, 2017 [place] [id number] [place] [address] 00069- 9275 07 Jul, 2017 [place] [id number] [place] [address] 54641- 8220 31 Jun, 2017 SVETLANA treated with BiPAP G47.33 ; Moderate persistent asthma without complication J45.40 ; Anxiety F41.9 ; Other obesity due to excess calories E66.09 ; Body mass index (BMI) of 40.0-44.9 in adult Z68.41 ; Psychophysiological insomnia F51.04 and Encounter for immunization Z23 [place] [id number] [place] [address] 46955- 3382 Jun, [place] [id number] [place] [address] 92539- 9776 Jun, Habitual self-excoriation F42.4 ; Adjustment disorder with depressed mood F43.21 ; Psychophysiological insomnia F51.04 and Eating disorder , unspecified F50.9 [place] [id number] [place] [address] 12474- 6456 Jun, Visit for TB skin test Z11.1 [place] [id number] [place] [address] 13133- 6440 Jun, Habitual self-excoriation F42.4 and Psychophysiological insomnia F51.04 [place] [id number] [place] [address] 68163- 7548 Jun, Asthma J45.909 [place] [id number] [place] [address] 31815- 9901 May, [address] J45.909 [facility] [id number] [place] [address] 77579- 9646 May, [facility] [id number] [place] [address] 39944- 4991 May, Habitual self-excoriation F42.4 and Psychophysiological insomnia F51.04 [facility] [id number] [place] [address] 50648- 4336 Apr, Habitual self-excoriation F42.4 ; Adjustment disorder with depressed mood F43.21 ; Psychophysiological insomnia F51.04 and Eating disorder , unspecified F50.9 [place] [id number] [place] [address] 41206- 5755 Apr, [place] [id number] [place] [address] 34825- 3755 Apr, Habitual self-excoriation F42.4 ; Adjustment disorder with depressed mood F43.21 ; Psychophysiological insomnia F51.04 and Other correction (current) drug therapy Z79.899 [place] [id number] [place] [address] 45380- 2247 Mar, [place] [id number] [place] [address] 96668- 6885 Mar, [facility] [id number] [place] [address] 41126- 3032 Mar, Anxiety F41.9 [facility] [address] [place] [address] 04454- 2259 Feb, Asthma J45.909 [facility] [id number] [place] [address] 79062- 4731 Feb, [facility] [id number] [place] [address] 97597- 5024 Feb, Anxiety F41.9 [place] [id number] [place] [address] 17873- 9660 Feb, Asthma exacerbation J45.901 and Seasonal allergic rhinitis due to pollen J30.1 [place] [id number] [place] [address] 15233- 2991 January, [place] [id number] [place] [address] 42576- 0276 January, Anxiety F41.9 [place] [address] 02739- 6858 Dec, Therapeutic drug monitoring Z51.[address] 60549- 3620 Dec, Anxiety F41.9 and Asthma J45.[address] 79294- 1115 Nov, Asthma J45.909 [place] [address] 05929- 6501 Nov, Anxiety F41.[address] 74982- 2272 Oct, Asthma exacerbation J45.901 ; Pain in right knee M25.561 ; Pain in left knee M25.562 and Open wound of eyebrow, left, subsequent encounter S01.102D [place] [id number] [place] [address] 30371- 8244 16 Oct, 2016 [facility] [id number] [place] [address] 84005 -0756 Oct, Other viral agents as the cause of diseases classified elsewhere B97.89 and Acute upper respiratory infection, unspecified J06.9 [place] [id number] [place] [address] 09228- 6185 Oct, [place] [id number] [place] [address] 61919- 9256 08 Oct, 2016 [facility] [address] [place] [address] 05708- 3697 02 Oct, [address] [facility] [id number] [place] [address] 44040 2546 Sep, [facility] [id number] [place] [address] 55574 2540 Sep, SVETLANA treated with BiPAP G47.33 and Asthma J45.909 [place] [id number] [place] [address] 33647- 3996 Sep, SVETLANA treated with BiPAP G47.33 ; Obesity (BMI 30.0-34.9) E66.9 and Reactive depression F32.9 [place] [id number] [place] [address] 84342- 1697 Sep, Anxiety F41.9 [place] [address] 58243- 3983 Aug, [place] [address] 83785- 2058 Aug, Insomnia G47.00 [place] [id number] [place] [address] 91961- 2542 Aug, [place] [id number] [place] [address] 47112- 7373 Aug, SVETLANA treated with BiPAP G47.33 and On supplemental oxygen therapy Z99.81 [place] [id number] [place] [address] 04874- 2549 Jul, On supplemental oxygen therapy Z99.81 ; Obesity (BMI 30.0- 34.9) E66.9 and SVETLANA treated with BiPAP G47.33 [place] [address] [place] [address] 72897- 2546 Jul, Mucus plugging of bronchi J98.09 ; On supplemental oxygen therapy Z99.81 ; Acute midline thoracic back pain M54.6 and SVETLANA treated with BiPAP G47.33 [facility] [id number] [address]- 5669 Jul, [facility] [id number] [place] [address] 09527- 3861 Jul, [facility] [id number] [place] [address] 40219- 9049 Jul, [facility] [id number] [place] [address] 17512- 8668 May, [facility] [id number] [place] [address] 15727- 1684 May, [facility] [id number] [place] [address] 58089- 1148 Apr, [facility] [id number] [place] [address] 01813- 3666 Apr, [facility] [id number] [place] [address] 86868- 6864 Apr, Insomnia G47.00 ; Anemia D64.9 ; OCD (obsessive compulsive disorder) F42 ; Anxiety F41.9 ; Asthma J45.909 and Obesity (BMI 30.0-34.9) E66.9 [facility] [id number] [place] [address] 71537- 0544 Feb, [facility] [id number] [place] [address] 21698- 5410 Feb, Insomnia G47.00 [facility] [id number] [place] [address] 73220- 3747 Nov, [facility] [id number] [place] [address] 08599- 0610 Nov, [facility] [id number] [place] [address] 28442- 5839 Nov, [facility] [id number] [place] [address] 19940- 4056 Nov, OCD (obsessive compulsive disorder) F42 ; Anxiety F41.9 ; Insomnia G47.00 ; Anemia D64.[address] [facility] [address] [place] [address] 64342- 9257 Nov, [facility] [id number] [place] [address] 19527- 9419 Oct, [facility] [id number] [place] [address] 37654- 7094 Aug, OCD (obsessive compulsive disorder) F42 ; Chronic cellulitis L03.90 ; Anxiety F41.9 ; Insomnia G47.00 ; Anemia D64.[address] [facility] [address] [place] [address] 41832- 5823 Aug, [facility] [id number] [place] [address] 25855- 0698 Jul, [facility] [id number] [place] [address] 39189- 2162 Jul, OCD (obsessive compulsive disorder) F42 ; Chronic cellulitis L03.90 ; Anxiety F41.9 ; Insomnia G47.[address] [facility] [address] [address]- 9060 Dec, [facility] [id number] [place] [address] 40191- 3783 Dec, [facility] [address] [place] [address] 38663- 5620 Aug, [facility] [id number] [place] [address] 27626- 3565 Aug, [facility] [address] [place] [address] 34098- 6907 Aug, [facility] [id number] [place] [address] 28883- 5844 Aug, [facility] [place] [facility] [address] [id number] [place] [address]- 3497 Aug, [facility] [place] [facility] [address] [id number] [place] [address]- 8361 Aug, [facility] [place] [facility] [address] [id number] [place] [address]- 9943 Aug, [facility] [place] [facility] [address] [id number] [place] [address]- 8831 Jul, [facility] [place] [facility] [address] [id number] [place] [address]- 7993 Jul, [facility] [place] [facility] [address] [id number] [place] [address]- 7439 Jul, [facility] [place] [facility] [address] [id number] [place] [address]- 1524 Jul, [facility] [place] [facility] [address] [id number] [place] [address]- 0078 Apr, [facility] [place] [facility] [address] [id number] [place] [address]- 5866 Apr, [facility] [place] [facility] [address] [id number] [place] [address]- 7745 Feb, [facility] [place] [facility] [address] [id number] [place] [address]- 3779 Feb, [facility] [place] [facility] [address] [id number] [address]- 6391 Feb, [facility] [place] [facility] [address] [id number] [place] [address]- 9448 Feb, [facility] [place] [facility] [address] [id number] [place] [address]- 5910 January, [facility] [place] [facility] [address] [id number] [place] [address]- 7330 January, [facility] [place] [facility] [address] [id number] [place] [address]- 5813 January, [facility] [place] [facility] [address] [id number] [place] [address]- 8894 Dec, [facility] [place] [facility] [address] [id number] [place] [address]- 4230 Dec, [facility] [place] [facility] [address] [id number] [place] [address]- 5917 Dec, [facility] [place] [facility] [address] [id number] [place] [address]- 0635 Dec, [facility] [place] [facility] [address] [id number] [place] [address]- 9887 Nov, [facility] [place] [facility] [address] [id number] [place] [address]- 4729 Nov, [facility] [place] [facility] [address] [id number] [place] [address]- 8077 Nov, [facility] [place] [facility] [address] [id number] [place] [address]- 9243 Nov, [facility] [place] [facility] [address] [id number] [place] [address]- 6047 Nov, [facility] [place] [facility] [address] [facility] [id number] [place] [address]- 1582 Nov, [facility] [place] [facility] [address] [id number] [place] [address]- 1684 Oct, [facility] [place] [facility] [address] [id number] [place] [address]- 4177 Oct, [facility] [place] [facility] [address] [id number] [place] [address]- 9989 Oct, [facility] [place] [facility] [address] [facility] [id number] [place] [address]- 0808 Oct, [facility] [place] [facility] [address] [id number] [place] [address]- 4961 Oct, [facility] [place] [facility] [address] [id number] [place] [address]- 3663 Oct, [facility] [place] [facility] [address] [id number] [place] [address]- 1364 Oct, [facility] [place] [facility] [address] [id number] [place] [address]- 0898 Oct, [facility] [place] [facility] [address] [id number] [place] [address]- 2233 Oct, [facility] [place] [facility] [address] [id number] [place] [address]- 0302 Oct, [facility] [place] [facility] [address] [id number] [place] [address]- 5405 Oct, [facility] [place] [facility] [address] [id number] [place] [address]- 2904 Oct, [facility] [place] [facility] [address] [id number] [place] [address]- 7241 Sep, [facility] [place] [facility] [address] [id number] [place] [address]- 6963 Sep, [facility] [place] [facility] [address] [id number] [place] [address]- 8080 Sep, [facility] [place] [facility] [address] [id number] [place] [address]- 8526 Sep, [facility] [place] [facility] [address] [id number] [place] [address]- 4435 Aug, [facility] [place] [facility] [address] [id number] [place] [address]- 3905 Aug, [facility] [place] [facility] [address] [id number] [place] [address]- 5539 Aug, [facility] [place] [facility] [address] [id number] [place] [address] Aug, [facility] [place] [facility] [address] [facility] [id number] [place] [id number] Aug, [facility] [address] [facility] [id number] [place] [address] Aug, [facility] [address] [facility] [id number] [place] [address] Aug, IMMUNIZATIONS No Known Immunizations SOCIAL HISTORY Never Assessed REASON FOR VISIT Controlled Med Refill PLAN OF CARE VITAL SIGNS MEDICATIONS Medication Instructions Dosage Frequency Start Date End Date Duration Status Zolpidem Tartrate 10 mg Orally at bedtime as needed 1 tablet 28 days Active Ativan 1 MG Orally twice a day as needed 1 tablet 28 days Active RESULTS No Results PROCEDURES No Known procedures INSTRUCTIONS MEDICATIONS ADMINISTERED No Known Medications MEDICAL (GENERAL) HISTORY Type Description Date Medical History asthma Medical History anxiety Medical History gastric bypass 2001 Medical History anemia Medical History sleep apnea treated with biPAP Surgical History gastric bypass 2001 Hospitalization History surgery Hospitalization History anemia Hospitalization History sepsis Hospitalization History Acute hypoxic resp distress--[facility] 07/28/16 Hospitalization History Denies any past psychiatric hospitalization
--- OUTSIDE RECORDS SUMMARY | 2018-10-07 10:17 | XMS REPORT ---
Author Author YANG SOLORIO [facility] Address [address] [place] [address] Care Team Providers Care Social Worker Masters Name Role Phone YANG SOLORIO Unavailable PROBLEMS Type Condition ICD9-CM Code ZKC10-SG Code Onset Dates Condition Status SNOMED Code Problem OCD (obsessive compulsive disorder) F42 Active 591485190 Problem Adjustment disorder with depressed mood F43.21 Active 86445765 Problem Chronic cellulitis L03.90 Active 073794178 Problem Eating disorder, unspecified F50.9 Active 32280735 Problem Insomnia G47.00 Active 507725757 Problem Body mass index (BMI) of 40.0-44.9 in adult Z68.41 Active 443555762 Problem Moderate persistent asthma without complication J45.40 Active 199428021 Problem Other obesity due to excess calories E66.09 Active 51799069319591 Problem ROBINA (generalized anxiety disorder) F41.1 Active 33577376 Problem Moderate episode of recurrent major depressive disorder F33.1 Active 356604070 Problem Obesity (BMI 30.0-34.9) E66.9 Active 671463209549327 Problem Asthma J45.909 Active 816978617 Problem Anxiety F41.9 Active 58323835 Problem Severe persistent asthma with acute exacerbation J45.51 Active 626632621 Problem BMI 45.0-49.9, adult Z68.42 Active 834486183 Problem Binge eating disorder F50.81 Active 263991109 Problem COPD exacerbation J44.1 Active 582375615 Problem Other chronic pain G89.29 Active 68161768 Problem Iron deficiency anemia, unspecified iron deficiency anemia type D50.9 Active 42246831 Problem SVETLANA treated with BiPAP G47.33 Active 23253084 Problem Reactive depression F32.9 Active 99737151 Problem Habitual self-excoriation F42.4 Active 657163517 Problem Psychophysiological insomnia F51.04 Active 805279795 Problem Asthma exacerbation J45.901 Active 042881877 Problem Seasonal allergic rhinitis due to pollen J30.1 Active 16173284 ALLERGIES No Information ENCOUNTERS Encounter Location Date Diagnosis [facility] [id number] [place] [address] 87423- 8597 Jul, [facility] [id number] [place] [address] 67252- 1384 Jul, [facility] [address] 59106- 3821 Jun, [facility] [id number] [place] [address] 90970- 7316 13 May, 2018 ROBINA (generalized anxiety disorder) F41.1 ; Moderate episode of recurrent major depressive disorder F33.1 ; Habitual self-excoriation F42.4 and Binge eating disorder F50.81 [facility] [id number] [place] [address] 78663- 0957 May, [facility] [address] 72618- 3413 Apr, ROBINA (generalized anxiety disorder) F41.1 ; Moderate episode of recurrent major depressive disorder F33.1 ; Binge eating disorder F50.81 ; Excoriation T14.8XXA and BMI 45.0-49.9, adult Z68.42 [facility] [id number] [place] [address] 84723- 5878 Apr, [facility] [id number] [place] [address] 77013- 1989 Apr, [facility] [id number] [place] [address] 67303- 2673 Apr, Diarrhea, unspecified type R19.7 [facility] [id number] [place] [address] 31329- 4864 Apr, Diarrhea, unspecified type R19.7 [facility] [id number] [place] [address] 04284- 6469 Apr, ROBINA (generalized anxiety disorder) F41.1 ; Moderate episode of recurrent major depressive disorder F33.1 ; Excoriation T14.8XXA ; Binge eating disorder F50.81 and BMI 45.0-49.9, adult Z68.42 [facility] [id number] [place] [address] 70997- 0810 Mar, [facility] [id number] [place] [address] 00621 -6149 Mar, Other specified bacterial agents as the cause of diseases classified elsewhere B96.89 ; Local infection of the skin and subcutaneous tissue, unspecified L08.9 ; Fever in other diseases R50.81 and BMI 50.0-59.9, adult Z68.43 [facility] [id number] [place] [address] 56169- 1893 Mar, Habitual self-excoriation F42.4 ; Anxiety F41.9 and Psychophysiological insomnia F51.04 [facility] [id number] [place] [address] 61904- 2688 Feb, [facility] [address] 18481- 1145 Feb, Anxiety F41.9 and Psychophysiological insomnia F51.04 [facility] [id number] [place] [address] 67069- 0043 January, Acute pain of left knee M25.562 and BMI 50.0-59.9, adult Z68.43 [facility] [id number] [place] [address] 91597- 2341 January, [facility] [address] 27738- 1401 January, COPD exacerbation J44.1 and Severe persistent asthma with acute exacerbation J45.51 [facility] [id number] [place] [address] 02172- 8229 January, Anxiety F41.9 and Psychophysiological insomnia F51.04 [facility] [address] [place] [address]- 3382 January, COPD exacerbation J44.1 and Left medial knee pain M25.562 [facility] [address] 25875- 8177 Dec, COPD with exacerbation J44.1 ; BMI 45.0-49.9, adult Z68.42 ; SVETLANA treated with BiPAP G47.33 and Psychophysiological insomnia F51.04 [facility] [address] 56173- 3874 Dec, [facility] [address] 09205- 2666 Dec, Acute pain of left knee M25.562 ; Unspecified fall, initial encounter W19.XXXA ; Unspecified place in unspecified non-institutional (private ) residence as the place of occurrence of the external cause Y92.009 ; BMI 45.0- 49.9, adult Z68.42 and Severe persistent asthma with acute exacerbation J45.51 [facility] [id number] [place] [address] 92013- 6723 Dec, Anxiety F41.9 and Psychophysiological insomnia F51.04 [facility] [id number] [place] [address] 55766- 9417 Nov, Psychophysiological insomnia F51.04 [facility] [id number] [place] [address] 51464- 7252 Oct, [facility] [address] 75910- 4325 Oct, Anxiety F41.9 [facility] [address] 17845- 7014 Oct, [facility] [address] 83276- 5585 Oct, Severe persistent asthma with acute exacerbation J45.51 ; Tobacco abuse Z72.0 and BMI 45.0-49.9, adult Z68.42 [facility] [id number] [place] [address] 95213- 1273 Oct, Psychophysiological insomnia F51.04 [facility] [id number] [place] [address] 46079- 8299 Sep, Anxiety F41.9 [facility] [id number] [place] [address] 62465- 9791 Sep, Anxiety F41.9 and Habitual self-excoriation F42.4 [facility] [id number] [place] [address] 04282- 7032 Sep, Psychophysiological insomnia F51.04 [facility] [address] 12875- 9170 Aug, Anxiety F41.9 [facility] [address] 40083- 8593 Aug, Asthma J45.909 [facility] [address] 71567- 6922 Aug, Anxiety F41.9 [facility] [address] 91925 -6290 Aug, Acute bronchitis, unspecified organism J20.9 [facility] [id number] [place] [address] 70820- 9650 Aug, Psychophysiological insomnia F51.04 [facility] [id number] [place] [address] 19023- 3382 Jul, Therapeutic drug monitoring Z51.81 [facility] [id number] [place] [address] 38543- 2321 Jul, [facility] [id number] [place] [address] 90401- 9209 Jul, Habitual self-excoriation F42.4 [facility] [id number] [place] [address] 06371- 9650 Jul, [facility] [id number] [place] [address] 80535- 5939 Jul, [facility] [address] 19389- 5032 31 Jun, 2017 SVETLANA treated with BiPAP G47.33 ; Moderate persistent asthma without complication J45.40 ; Anxiety F41.9 ; Other obesity due to excess calories E66.09 ; Body mass index (BMI) of 40.0-44.9 in adult Z68.41 ; Psychophysiological insomnia F51.04 and Encounter for immunization Z23 [facility] [address] 58170- 4947 Jun, [facility] [address] 56517- 7616 Jun, Habitual self-excoriation F42.4 ; Adjustment disorder with depressed mood F43.21 ; Psychophysiological insomnia F51.04 and Eating disorder , unspecified F50.9 [facility] [address] 75285- 8819 10 Jun, 2017 Visit for TB skin test Z11.1 [facility] [address] 16603- 1332 Jun, Habitual self-excoriation F42.4 and Psychophysiological insomnia F51.04 [facility] [address] 49170- 3595 Jun, Asthma J45.909 [facility] [id number] [place] [address] 35056- 9298 May, Asthma J45.909 [facility] [address] 27198- 8181 May, [facility] [address] 39006- 8886 May, Habitual self-excoriation F42.4 and Psychophysiological insomnia F51.04 [facility] [address] [place] [address]- 5755 Apr, Habitual self-excoriation F42.4 ; Adjustment disorder with depressed mood F43.21 ; Psychophysiological insomnia F51.04 and Eating disorder , unspecified F50.9 [facility] [id number] [place] [address] 10128- 3737 Apr, [facility] [id number] [place] [address] 93919- 6937 Apr, Habitual self-excoriation F42.4 ; Adjustment disorder with depressed mood F43.21 ; Psychophysiological insomnia F51.04 and Other usp (current) drug therapy Z79.899 [facility] [id number] [place] [address] 60942- 1912 Mar, [facility] [id number] [place] [address] 50158- 7030 Mar, [facility] [id number] [place] [address] 12183- 3645 Mar, Anxiety F41.9 [facility] [id number] [place] [address] 56180- 7096 Feb, Asthma J45.909 [facility] [id number] [place] [address] 34127- 1157 Feb, [facility] [id number] [place] [address] 45403- 5869 Feb, Anxiety F41.9 [facility] [id number] [place] [address] 68630- 4163 Feb, Asthma exacerbation J45.901 and Seasonal allergic rhinitis due to pollen J30.1 [facility] [id number] [place] [address] 41571- 4767 January, [facility] [id number] [place] [address] 83004- 1708 January, Anxiety F41.9 [facility] [id number] [place] [address] 41246- 0342 Dec, Therapeutic drug monitoring Z51.81 [facility] [id number] [place] [address] 26550- 5222 Dec, Anxiety F41.9 and Asthma J45.909 [facility] [address] 32022- 0532 Nov, Asthma J45.909 [facility] [address] 89412- 5632 Nov, Anxiety F41.9 [facility] [address] 15811- 2556 Oct, Asthma exacerbation J45.901 ; Pain in right knee M25.561 ; Pain in left knee M25.562 and Open wound of eyebrow, left, subsequent encounter S01.102D [facility] [id number] [place] [address] 73252- 1645 16 Oct, 2016 [facility] [id number] [place] [address] 15280 -0129 Oct, Other viral agents as the cause of diseases classified elsewhere B97.89 and Acute upper respiratory infection, unspecified J06.9 [facility] [id number] [place] [address] 30954- 7790 Oct, [facility] [id number] [place] [address] 57964- 0730 Oct, [facility] [id number] [place] [address] 91215- 6552 Oct, Anxiety F41.9 [facility] [id number] [place] [address] 27238- 1234 Sep, [facility] [id number] [place] [address] 54871- 5588 Sep, SVETLANA treated with BiPAP G47.33 and Asthma J45.909 [facility] [id number] [place] [address] 90725- 6794 Sep, SVETLANA treated with BiPAP G47.33 ; Obesity (BMI 30.0-34.9) E66.9 and Reactive depression F32.9 [facility] [id number] [place] [address] 36800- 2140 Sep, Anxiety F41.9 [facility] [address] 77179- 5495 Aug, [facility] [address] 46942- 9293 Aug, Insomnia G47.00 [facility] [address] 23096- 0858 Aug, [facility] [address] 31128- 0684 Aug, SVETLANA treated with BiPAP G47.33 and On supplemental oxygen therapy Z99.81 [facility] [address] 23624- 4870 Jul, On supplemental oxygen therapy Z99.81 ; Obesity (BMI 30.0- 34.9) E66.9 and SVETLANA treated with BiPAP G47.33 [facility] [id number] [place] [address] 76154- 1334 Jul, Mucus plugging of bronchi J98.09 ; On supplemental oxygen therapy Z99.81 ; Acute midline thoracic back pain M54.6 and SVETLANA treated with BiPAP G47.33 [facility] [id number] [place] [address] 03926- 1336 Jul, [facility] [address] 52497- 8638 15 Jul, 2016 [facility] [id number] [place] [address] 68271- 7801 Jul, [facility] [address] [place] [address]- 6688 May, [facility] [id number] [place] [address] 72538- 4789 May, [facility] [id number] [place] [address] 58941- 8842 Apr, [facility] [id number] [place] [address] 90798- 1655 Apr, [facility] [address] 10139- 4044 Apr, Insomnia G47.00 ; Anemia D64.9 ; OCD (obsessive compulsive disorder) F42 ; Anxiety F41.9 ; Asthma J45.909 and Obesity (BMI 30.0-34.9) E66.9 [facility] [id number] [place] [address] 14559- 2570 Feb, [facility] [address] 51184- 9780 Feb, Insomnia G47.00 [facility] [id number] [place] [address] 10956- 3177 Nov, [facility] [id number] [place] [address] 35620- 7817 Nov, [facility] [id number] [place] [address] 87094- 2898 Nov, [facility] [id number] [place] [address] 69820- 1759 Nov, OCD (obsessive compulsive disorder) F42 ; Anxiety F41.9 ; Insomnia G47.00 ; Anemia D64.9 and Asthma J45.909 [facility] [id number] [place] [address] 55712- 3866 Nov, [facility] [id number] [place] [address] 44147- 5879 Oct, [facility] [address] [address]- 1881 Aug, OCD (obsessive compulsive disorder) F42 ; Chronic cellulitis L03.90 ; Anxiety F41.9 ; Insomnia G47.00 ; Anemia D64.9 and Asthma J45.909 [facility] [id number] [address]- 2068 Aug, [facility] [id number] [place] [address] 84274- 6821 Jul, [facility] [id number] [place] [address] 22870- 4731 Jul, OCD (obsessive compulsive disorder) F42 ; Chronic cellulitis L03.90 ; Anxiety F41.9 ; Insomnia G47.00 and Anemia D64.9 [facility] [id number] [place] [address] 53539- 0836 Dec, [facility] [id number] [place] [address] 46929- 3210 Dec, [facility] [id number] [place] [address] 89850- 6632 Aug, [facility] [id number] [place] [address] 02000- 7336 Aug, [facility] [address] [address]- 3904 14 Aug, 2014 [facility] [id number] [place] [address] 16905- 6229 Aug, [facility] [address] [place] [address] 63559- 6868 Aug, [facility] [id number] [place] [address] 46706- 8573 Aug, [facility] [address] [place] [address] 51137- 5854 Aug, [facility] [id number] [place] [address] 71055- 8369 Jul, [facility] [place] [facility] [address] [id number] [place] [address]- 7680 Jul, [facility] [place] [facility] [address] [id number] [place] [address]- 8643 Jul, [facility] [place] [facility] [address] [id number] [place] [address]- 6875 Jul, [facility] [place] [facility] [address] [id number] [place] [address]- 9083 Apr, [facility] [place] [facility] [address] [id number] [place] [address]- 9268 Apr, [facility] [place] [facility] [address] [id number] [place] [address]- 6319 Feb, [facility] [place] [facility] [address] [id number] [place] [address]- 9652 Feb, [facility] [place] [facility] [address] [id number] [place] [address]- 7238 Feb, [facility] [place] [facility] [address] [id number] [place] [address]- 4478 Feb, [facility] [place] [facility] [address] [id number] [place] [address]- 6674 January, [facility] [place] [facility] [address] [id number] [place] [address]- 4862 January, [facility] [place] [facility] [address] [id number] [place] [address]- 0664 January, [facility] [place] [facility] [address] [id number] [place] [address]- 8477 Dec, [facility] [place] [facility] [address] [id number] [place] [address]- 3260 Dec, [facility] [place] [facility] [address] [id number] [place] [address]- 3331 Dec, [facility] [place] [facility] [address] [id number] [place] [address]- 2763 Dec, [facility] [place] [facility] [address] [id number] [place] [address]- 4087 Nov, [facility] [place] [facility] [address] [id number] [place] [address]- 8097 Nov, [facility] [place] [facility] [address] [id number] [place] [address]- 4978 Nov, [facility] [place] [facility] [address] [id number] [place] [address]- 3771 Nov, [facility] [place] [facility] [address] [id number] [place] [address]- 4085 Nov, [facility] [place] [facility] [address] [facility] [id number] [place] [address]- 0094 Nov, [facility] [place] [facility] [address] [facility] [facility] [id number] [place] [address]- 2575 Oct, [facility] [place] [facility] [address] [id number] [place] [address]- 6151 Oct, [facility] [place] [facility] [address] [facility] [facility] [id number] [place] [address]- 9725 Oct, [facility] [place] [facility] [address] [facility] [facility] [id number] [place] [address]- 4277 Oct, [facility] [place] [facility] [address] [facility] [facility] [id number] [place] [address]- 7619 Oct, [facility] [place] [facility] [address] [facility] [facility] [id number] [place] [address]- 8584 Oct, [facility] [place] [facility] [address] [facility] [facility] [id number] [place] [address]- 6750 Oct, [facility] [place] [facility] [address] [facility] [facility] [id number] [place] [address]- 3623 Oct, [facility] [place] [facility] [address] [facility] [facility] [id number], [place] [address]- 4725 Oct, [facility] [address] [facility] [address] [facility] [id number], [place] [address]- 8126 Oct, [facility] [address] [facility] [address] [facility] [id number] 6639 Oct, [facility] [address] 3607 Oct, [facility] [address] [facility] [address] [facility] [id number], [place] [address]- 1894 Sep, [facility] [address] [facility] [address] [facility] [id number], [place] [address]- 0777 Sep, [facility] [address] [facility] [address] [facility] [id number], [place] [address]- 3817 Sep, [facility] [address], [place] [address]- 5160 Sep, [facility] [address], [place] [address]- 0019 Aug, [facility] [address], [place] [address]- 6534 Aug, [facility] [address] [place] [address]- 4394 Aug, [facility] [address], [place] [address]- 6327 Aug, [facility] [id number] [place] [address] Aug, [facility] [id number] [place] [address] Aug, [facility] [id number] [place] [address] Aug, IMMUNIZATIONS No Known Immunizations SOCIAL HISTORY Never Assessed REASON FOR VISIT intake PLAN OF CARE Activity Details Follow Up 4 Weeks Reason: Follow-up VITAL SIGNS MEDICATIONS Medication Instructions Dosage Frequency Start Date End Date Duration Status Ventolin HFA 90 MCG/ACT Inhalation every 4 hrs 2 puffs as needed 4h Active Celexa 40 MG Orally daily 1 tablet 24h 30 days Active Wellbutrin SR 150 MG Orally twice a day 1 tablet 12h Apr, 30 days Active Meloxicam 7.5 MG Orally Once a day 1 tablet 24h 30 Active Zolpidem Tartrate 10 mg Orally at bedtime as needed 1 tablet Active Ativan 1 MG Orally twice a day as needed 1 tablet Active Symbicort 160-4.5 mcg/act Inhalation Twice a day 2 puffs 12h Oct, Active Meloxicam 15 MG Orally Once a day 1 tablet 24h 30 Active RESULTS No Results PROCEDURES Procedure Date Ordered Result Body Site Psych diagnostic evaluation, established patient Jun 03, 2018 INSTRUCTIONS MEDICATIONS ADMINISTERED No Known Medications MEDICAL (GENERAL) HISTORY Type Description Date Medical History asthma Medical History anxiety Medical History gastric bypass 2001 Medical History anemia Medical History sleep apnea treated with biPAP Surgical History gastric bypass 2001 Hospitalization History surgery Hospitalization History anemia Hospitalization History sepsis Hospitalization History Acute hypoxic resp distress--[facility] 07/28/16 Hospitalization History Denies any past psychiatric hospitalization
--- OUTSIDE RECORDS SUMMARY | 2018-10-07 10:17 | XMS REPORT ---
Author Author BRICE RAMIREZ [facility] Address [address] [place] [address] Care Team Providers Care Leadership Development Consultant Name Role Phone BRICE RAMIREZ Unavailable PROBLEMS Type Condition ICD9-CM Code WIT81-SO Code Onset Dates Condition Status SNOMED Code Problem OCD (obsessive compulsive disorder) F42 Active [id number] Problem Adjustment disorder with depressed mood F43.21 Active 97036555 Problem Chronic cellulitis L03.90 Active 012588727 Problem Eating disorder, unspecified F50.9 Active 52180690 Problem Insomnia G47.00 Active 651314471 Problem Body mass index (BMI) of 40.0-44.9 in adult Z68.41 Active 654254903 Problem Moderate persistent asthma without complication J45.40 Active 168119395 Problem Other obesity due to excess calories E66.09 Active [id number] Problem ROBINA (generalized anxiety disorder) F41.1 Active 35034682 Problem Moderate episode of recurrent major depressive disorder F33.1 Active 502666218 Problem Obesity (BMI 30.0-34.9) E66.9 Active 975705204118948 Problem Asthma J45.909 Active 778093430 Problem Anxiety F41.9 Active 56099237 Problem Severe persistent asthma with acute exacerbation J45.51 Active 679094911 Problem BMI 45.0-49.9, adult Z68.42 Active 846534527 Problem Binge eating disorder F50.81 Active 379922730 Problem COPD exacerbation J44.1 Active 451292718 Problem Other chronic pain G89.29 Active 37182691 Problem Iron deficiency anemia, unspecified iron deficiency anemia type D50.9 Active 48408032 Problem SVETLANA treated with BiPAP G47.33 Active 28113152 Problem Reactive depression F32.9 Active 16204732 Problem Habitual self-excoriation F42.4 Active 288600741 Problem Psychophysiological insomnia F51.04 Active 336349208 Problem Asthma exacerbation J45.901 Active 250577963 Problem Seasonal allergic rhinitis due to pollen J30.1 Active 42686283 ALLERGIES No Information ENCOUNTERS Encounter Location Date Diagnosis [facility] [id number] [place] [address] 30741- 1718 Jul, [facility] [id number] [place] [address] 93830- 3234 Jul, [facility] [address] 42948- 8209 Jul, [facility] [id number] [place] [address] 51870- 5131 Jun, [facility] [address] 70567- 6236 Jun, ROBINA (generalized anxiety disorder) F41.1 [facility] [id number] [place] [address] 31397- 2607 13 May, 2018 ROBINA (generalized anxiety disorder) F41.1 ; Moderate episode of recurrent major depressive disorder F33.1 ; Habitual self-excoriation F42.4 and Binge eating disorder F50.81 [facility] [id number] [place] [address] 76210- 1443 May, [facility] [id number] [place] [address] 25350- 2025 Apr, ROBINA (generalized anxiety disorder) F41.1 ; Moderate episode of recurrent major depressive disorder F33.1 ; Binge eating disorder F50.81 ; Excoriation T14.8XXA and BMI 45.0-49.9, adult Z68.42 [facility] [id number] [place] [address] 10032- 1416 Apr, [facility] [id number] [place] [address] 54568- 2807 Apr, [facility] [id number] [place] [address] 58649- 0706 Apr, Diarrhea, unspecified type R19.7 [facility] [id number] [place] [address] 74465- 2382 Apr, Diarrhea, unspecified type R19.7 [facility] [id number] [place] [address] 56450- 6483 Apr, ROBINA (generalized anxiety disorder) F41.1 ; Moderate episode of recurrent major depressive disorder F33.1 ; Excoriation T14.8XXA ; Binge eating disorder F50.81 and BMI 45.0-49.9, adult Z68.42 [facility] [id number] [place] [address] 16019- 2874 Mar, [facility] [id number] [place] [address] 30121 -1714 Mar, Other specified bacterial agents as the cause of diseases classified elsewhere B96.89 ; Local infection of the skin and subcutaneous tissue, unspecified L08.9 ; Fever in other diseases R50.81 and BMI 50.0-59.9, adult Z68.43 [facility] [id number] [place] [address] 40429- 3225 Mar, Habitual self-excoriation F42.4 ; Anxiety F41.9 and Psychophysiological insomnia F51.04 [facility] [id number] [place] [address] 46425- 6619 Feb, [facility] [id number] [place] [address] 52993- 3999 Feb, Anxiety F41.9 and Psychophysiological insomnia F51.04 [facility] [id number] [place] [address] 98509- 5733 January, Acute pain of left knee M25.562 and BMI 50.0-59.9, adult Z68.43 [facility] [id number] [place] [address] 50072- 3764 January, [facility] [id number] [place] [address] 75650- 3026 January, COPD exacerbation J44.1 and Severe persistent asthma with acute exacerbation J45.51 [facility] [address] 20428- 9719 January, Anxiety F41.9 and Psychophysiological insomnia F51.04 [facility] [id number] [place] [address] 64407- 6710 January, COPD exacerbation J44.1 and Left medial knee pain M25.562 [facility] [address] 14963- 0250 Dec, COPD with exacerbation J44.1 ; BMI 45.0-49.9, adult Z68.42 ; SVETLANA treated with BiPAP G47.33 and Psychophysiological insomnia F51.04 [facility] [address] 48525- 5261 Dec, [facility] [address] 41445- 8027 Dec, Acute pain of left knee M25.562 ; Unspecified fall, initial encounter W19.XXXA ; Unspecified place in unspecified non-institutional (private ) residence as the place of occurrence of the external cause Y92.009 ; BMI 45.0- 49.9, adult Z68.42 and Severe persistent asthma with acute exacerbation J45.51 [facility] [address] 20416- 4474 Dec, Anxiety F41.9 and Psychophysiological insomnia F51.04 [facility] [id number] [place] [address] 33040- 9975 Nov, Psychophysiological insomnia F51.04 [facility] [address] 74318- 0951 Oct, [facility] [id number] [place] [address] 19800- 2084 Oct, Anxiety F41.9 [facility] [address] 75758- 6710 Oct, [facility] [id number] [place] [address] 92420- 5232 Oct, Severe persistent asthma with acute exacerbation J45.51 ; Tobacco abuse Z72.0 and BMI 45.0-49.9, adult Z68.42 [facility] [address] 79934- 0660 Oct, Psychophysiological insomnia F51.04 [facility] [address] 86449- 2747 Sep, Anxiety F41.9 [facility] [address] 36231- 0707 Sep, Anxiety F41.9 and Habitual self-excoriation F42.4 [facility] [address] 98702- 4005 Sep, Psychophysiological insomnia F51.04 [facility] [address] 25555- 9566 Aug, Anxiety F41.9 [facility] [address] 76788- 1187 Aug, Asthma J45.909 [facility] [address] 45666- 5716 Aug, Anxiety F41.9 [facility] [id number] [place] [address] 41276 -3164 Aug, Acute bronchitis, unspecified organism J20.9 [facility] [id number] [place] [address] 40525- 1861 Aug, Psychophysiological insomnia F51.04 [facility] [address] 89342- 8715 Jul, Therapeutic drug monitoring Z51.81 [facility] [address] 97639- 5823 Jul, [facility] [id number] [place] [address] 37051- 4704 Jul, Habitual self-excoriation F42.4 [facility] [id number] [place] [address] 78670- 1330 08 Jul, 2017 [facility] [address] 68537- 6196 Jul, [facility] [address] 42485- 1532 Jun, SVETLANA treated with BiPAP G47.33 ; Moderate persistent asthma without complication J45.40 ; Anxiety F41.9 ; Other obesity due to excess calories E66.09 ; Body mass index (BMI) of 40.0-44.9 in adult Z68.41 ; Psychophysiological insomnia F51.04 and Encounter for immunization Z23 [facility] [address] 86460- 3965 Jun, [facility] [address] 66553- 9929 Jun, Habitual self-excoriation F42.4 ; Adjustment disorder with depressed mood F43.21 ; Psychophysiological insomnia F51.04 and Eating disorder , unspecified F50.9 [facility] [id number] [place] [address] 29575- 4904 Jun, Visit for TB skin test Z11.1 [facility] [address] 55117- 0899 Jun, Habitual self-excoriation F42.4 and Psychophysiological insomnia F51.04 [facility] [address] 71952- 9747 Jun, Asthma J45.909 [facility] [id number] [place] [address] 95517- 3261 May, Asthma J45.909 [facility] [address] 41900- 8251 May, [facility] [address] [address]- 7350 May, Habitual self-excoriation F42.4 and Psychophysiological insomnia F51.04 [facility] [address] [place] [address] 73742- 8721 Apr, Habitual self-excoriation F42.4 ; Adjustment disorder with depressed mood F43.21 ; Psychophysiological insomnia F51.04 and Eating disorder , unspecified F50.9 [facility] [address] [place] [address] 78285- 6819 Apr, [facility] [address] [place] [address] 63179- 2267 Apr, Habitual self-excoriation F42.4 ; Adjustment disorder with depressed mood F43.21 ; Psychophysiological insomnia F51.04 and Other oil heaterman (current) drug therapy Z79.899 [facility] [id number] [place] [address] 25963- 2159 Mar, [facility] [id number] [place] [address] 34576- 8970 Mar, [facility] [address] [place] [address] 03644- 2533 Mar, Anxiety F41.9 [facility] [address] [place] [address] 69233- 7830 Feb, Asthma J45.909 [facility] [address] [place] [address] 28439- 1771 Feb, [facility] [id number] [place] [address] 08320- 9474 Feb, Anxiety F41.9 [facility] [address] [place] [address] 81635- 3998 Feb, Asthma exacerbation J45.901 and Seasonal allergic rhinitis due to pollen J30.1 [facility] [address] [place] [address] 27665- 2906 January, [facility] [id number] [place] [address] 53840- 4924 January, Anxiety F41.9 [facility] [id number] [place] [address] 67568- 1753 Dec, Therapeutic drug monitoring Z51.81 [facility] [address] 77537- 9855 Dec, Anxiety F41.9 and Asthma J45.[address] 22043- 6654 Nov, Asthma J45.909 [facility] [id number] [place] [address] 33431- 0282 Nov, Anxiety F41.9 [facility] [id number] [place] [address] 50478- 6193 Oct, Asthma exacerbation J45.901 ; Pain in right knee M25.561 ; Pain in left knee M25.562 and Open wound of eyebrow, left, subsequent encounter S01.102D [facility] [address] [place] [address] 42917- 6642 16 Oct, 2016 [facility] [address] [place] [address] 30253 -2260 Oct, Other viral agents as the cause of diseases classified elsewhere B97.89 and Acute upper respiratory infection, unspecified J06.9 [facility] [id number] [place] [address] 16689- 1389 Oct, [facility] [id number] [place] [address] 86223- 2586 Oct, [facility] [address] [place] [address] 80455- 7537 Oct, Anxiety F41.9 [facility] [id number] [place] [address] 90693- 1512 Sep, [facility] [address] 70961- 5772 Sep, SVETLANA treated with BiPAP G47.33 and Asthma J45.909 [facility] [id number] [place] [address] 18483- 9889 Sep, [place]ET[place] treated with BiPAP G47.33 ; Obesity (BMI 30.0-34.9) E66.9 and Reactive depression F32.9 [facility] [id number] [place] [address] 38306- 4582 Sep, Anxiety F41.9 [facility] [address] 39218- 0554 Aug, [facility] [address] 41947- 8932 Aug, Insomnia G47.00 [facility] [address] 98494- 5196 Aug, [facility] [address] 37634- 8705 Aug, SVETLANA treated with BiPAP G47.33 and On supplemental oxygen therapy Z99.81 [facility] [id number] [place] [address] 79638- 3574 Jul, On supplemental oxygen therapy Z99.81 ; Obesity (BMI 30.0- 34.9) E66.9 and SVETLANA treated with BiPAP G47.33 [facility] [id number] [place] [address] 13194- 9367 Jul, Mucus plugging of bronchi J98.09 ; On supplemental oxygen therapy Z99.81 ; Acute midline thoracic back pain M54.6 and SVETLANA treated with BiPAP G47.33 [facility] [id number] [place] [address] 04850- 2057 Jul, [facility] [address] [address]- 5367 Jul, [facility] [address] [address]- 0154 Jul, [facility] [address] [address]- 1688 May, [facility] [id number] [place] [address] 00282- 3433 May, [facility] [address] [place] [address] 98628- 4795 Apr, [facility] [id number] [place] [address] 48944- 8328 Apr, [facility] [address] [place] [address] 09669- 6500 Apr, Insomnia G47.00 ; Anemia D64.9 ; OCD (obsessive compulsive disorder) F42 ; Anxiety F41.9 ; Asthma J45.909 and Obesity (BMI 30.0-34.9) E66.9 [facility] [address] [place] [address] 85026- 0104 Feb, [facility] [id number] [place] [address] 58720- 0918 Feb, Insomnia G47.00 [facility] [address] [place] [address] 87171- 3794 Nov, [facility] [address] [address]- 9181 Nov, [facility] [id number] [place] [address] 81891- 0273 Nov, [facility] [address] [address]- 6515 Nov, OCD (obsessive compulsive disorder) F42 ; Anxiety F41.9 ; Insomnia G47.00 ; Anemia D64.9 and Asthma J45.909 [facility] [address] [address]- 0707 Nov, [facility] [address] [place] [address] 25930- 7387 Oct, [facility] [address] [address]- 0201 Aug, OCD (obsessive compulsive disorder) F42 ; Chronic cellulitis L03.90 ; Anxiety F41.9 ; Insomnia G47.00 ; Anemia D64.9 and Asthma J45.909 [facility] [address] [address]- 1875 Aug, [facility] [id number] [place] [address] 89998- 8029 Jul, [facility] [address] [place] [address] 87611- 2233 Jul, OCD (obsessive compulsive disorder) F42 ; Chronic cellulitis L03.90 ; Anxiety F41.9 ; Insomnia G47.00 and Anemia D64.9 [facility] [address] [address]- 9222 Dec, [facility] [address] [address]- 8006 Dec, [facility] [address] [address]- 1003 Aug, [facility] [address], [place] [address]- 9538 Aug, [facility] [address] [address]- 7870 Aug, [facility] [address], [place] [address]- 2334 Aug, [facility] [address], [place] [address]- 9534 Aug, [facility] [address] [place] [address]- 2045 Aug, [facility] [place] [facility] [address] [id number] [place] [address]- 0521 Aug, [facility] [place] [facility] [address] [id number] [place] [address]- 6522 Jul, [facility] [place] [facility] [address] [id number] [place] [address]- 5441 Jul, [facility] [place] [facility] [address] [id number] [place] [address]- 5925 Jul, [facility] [place] [facility] [address] [id number] [place] [address]- 5721 Jul, [facility] [place] [facility] [address] [id number] [place] [address]- 1012 Apr, [facility] [place] [facility] [address] [id number] [place] [address]- 0298 Apr, [facility] [place] [facility] [address] [id number] [place] [address]- 2423 Feb, [facility] [place] [facility] [address] [id number] [place] [address]- 1844 Feb, [facility] [place] [facility] [address] [id number] [place] [address]- 9770 Feb, [facility] [place] [facility] [address] [id number] [place] [address]- 7313 Feb, [facility] [place] [facility] [address] [id number] [place] [address]- 8058 January, [facility] [place] [facility] [address] [id number] [place] [address]- 1529 January, [facility] [place] [facility] [address] [id number] [place] [address]- 4569 January, [facility] [place] [facility] [address] [id number] [place] 2861 Dec, [facility] [place] [facility] [address] [id number] [place] [address]- 4246 Dec, [facility] [place] [facility] [address] [id number] [place] [address]- 9294 Dec, [facility] [place] [facility] [address] [id number] [place] [address]- 9374 Dec, [facility] [place] [facility] [address] [id number] [place] [address]- 5967 Nov, [facility] [place] [facility] [address] [id number] [place] [address]- 9647 Nov, [facility] [place] [facility] [address] [id number] [place] [address]- 1770 Nov, [facility] [place] [facility] [address] [id number] [place] [address]- 1850 Nov, [facility] [place] [facility] [address] [id number] [place] [address]- 2240 Nov, [facility] [place] [facility] [address] [id number] [place] [address]- 8801 Nov, [facility] [place] [facility] [address] [id number] [place] [address]- 2100 Oct, [facility] [place] [facility] [address] [id number] [place] [address]- 2898 Oct, [facility] [place] [facility] [address] [id number] [place] [address]- 6555 Oct, [facility] [place] [facility] [address] [id number] [place] [address]- 9992 Oct, [facility] [place] [facility] [address] [id number] [place] [address]- 3676 Oct, [facility] [place] [facility] [address] [id number] [place] [address]- 0851 Oct, [facility] [place] [facility] [address] [id number] [place] [address]- 4995 Oct, [facility] [place] [facility] [address] [id number] [place] [address]- 3916 Oct, [facility] [place] [facility] [address] [id number] [place] 0316 Oct, [facility] [place] [facility] [address] [id number] [place] [address]- 8726 Oct, [facility] [place] [facility] [address] [id number] [place] [address]- 5231 Oct, [facility] [place] [facility] [address] [id number] [place] [address]- 8850 Oct, [facility] [place] [facility] [address] [id number] [place] [address]- 7128 Sep, [facility] [place] [facility] [address] [id number] [place] [address]- 5716 Sep, [facility] [place] [facility] [address] [id number] [place] [address]- 1970 Sep, [facility] [place] [facility] [address] [id number] [place] [address]- 9413 Sep, [facility] [place] [facility] [address] [id number] [place] [address]- 9397 Aug, [facility] [place] [facility] [address] [id number] [place] [address]- 6250 31 Aug, 2013 [facility] [place] [facility] [address] [id number] [place] [address] 2540 27 Aug, 2013 [facility] [place] [facility] [address] [id number] [place] [address] Aug, [facility] [place] [facility] [address] [id number] [place] [address] Aug, [facility] [place] [facility] [address] [id number] [place] [address] Aug, [facility] [address] [facility] [id number] [place] [address] Aug, IMMUNIZATIONS No Known Immunizations SOCIAL HISTORY Never Assessed REASON FOR VISIT Controlled Medication Refill PLAN OF CARE VITAL SIGNS MEDICATIONS [...] History sepsis Hospitalization History Acute hypoxic resp distress--[facility] 07/28/16 Hospitalization History Denies any past psychiatric hospitalization
--- OUTSIDE RECORDS SUMMARY | 2018-10-07 10:18 | XMS REPORT ---
Author Author MIRTA MUNIZ [facility] Address [address] [place] [address] Care Team Providers Care Bilingual Medical Receptionist Name Role Phone CRISTY MIRTA Unavailable PROBLEMS Type Condition ICD9-CM Code JGM15-OU Code Onset Dates Condition Status SNOMED Code Problem OCD (obsessive compulsive disorder) F42 Active 316525284 Problem Adjustment disorder with depressed mood F43.21 Active 41044065 Problem Chronic cellulitis L03.90 Active 017083362 Problem Eating disorder, unspecified F50.9 Active 01806118 Problem Insomnia G47.00 Active 647868555 Problem Body mass index (BMI) of 40.0-44.9 in adult Z68.41 Active 210226817 Problem Moderate persistent asthma without complication J45.40 Active 291028359 Problem Other obesity due to excess calories E66.09 Active 45627436311075 Problem ROBINA (generalized anxiety disorder) F41.1 Active 38269863 Problem Moderate episode of recurrent major depressive disorder F33.1 Active 968702447 Problem Obesity (BMI 30.0-34.9) E66.9 Active 816479498930593 Problem Asthma J45.909 Active 694870675 Problem Anxiety F41.9 Active 99986103 Problem Severe persistent asthma with acute exacerbation J45.51 Active 032731698 Problem BMI 45.0-49.9, adult Z68.42 Active 017662081 Problem Binge eating disorder F50.81 Active 515528514 Problem COPD exacerbation J44.1 Active 419875372 Problem Other chronic pain G89.29 Active 23534559 Problem Iron deficiency anemia, unspecified iron deficiency anemia type D50.9 Active 23354027 Problem SVETLANA treated with BiPAP G47.33 Active 82825496 Problem Reactive depression F32.9 Active 91760950 Problem Habitual self-excoriation F42.4 Active 609807292 Problem Psychophysiological insomnia F51.04 Active 361701308 Problem Asthma exacerbation J45.901 Active 723129599 Problem Seasonal allergic rhinitis due to pollen J30.1 Active 90434787 ALLERGIES Substance Reaction Event Type Date Status Morphine Sulfate itching Drug Allergy Apr, Active ENCOUNTERS Encounter Location Date Diagnosis [place] [id number] [place] [address] 17276- 4111 Jul, [place] [id number] [place] [address] 50233- 9654 Jul, [place] [id number] [place] [address] 96741- 7591 Jun, [place] [address] 11978- 1288 May, ROBINA (generalized anxiety disorder) F41.1 ; Moderate episode of recurrent major depressive disorder F33.1 ; Habitual self-excoriation F42.4 and Binge eating disorder F50.81 [place] [id number] [place] [address] 64314- 6187 May, [place] [id number] [place] [address] 88415- 8618 Apr, ROBINA (generalized anxiety disorder) F41.1 ; Moderate episode of recurrent major depressive disorder F33.1 ; Binge eating disorder F50.81 ; Excoriation T14.8XXA and BMI 45.0-49.9, adult Z68.42 [place] [id number] [place] [address] 19328- 8164 Apr, [place] [id number] [place] [address] 47355- 1958 Apr, [place] [id number] [place] [address] 99635- 5915 Apr, Diarrhea, unspecified type R19.7 [place] [id number] [place] [address] 09411- 5027 Apr, Diarrhea, unspecified type R19.7 [place] [id number] [place] [address] 71078- 9779 Apr, ROBINA (generalized anxiety disorder) F41.1 ; Moderate episode of recurrent major depressive disorder F33.1 ; Excoriation T14.8XXA ; Binge eating disorder F50.81 and BMI 45.0-49.9, adult Z68.42 [facility] [place] [address] [place] [address] 57119- 8149 Mar, [facility] [id number] [place] [address] 42156 -9197 Mar, Other specified bacterial agents as the cause of diseases classified elsewhere B96.89 ; Local infection of the skin and subcutaneous tissue, unspecified L08.9 ; Fever in other diseases R50.81 and BMI 50.0-59.9, adult Z68.43 [facility] [place] [id number] [place] [address] 06422- 9890 Mar, Habitual self-excoriation F42.4 ; Anxiety F41.9 and Psychophysiological insomnia F51.04 [place] [id number] [place] [address] 05260- 7935 Feb, [place] [address] 55152- 2161 Feb, Anxiety F41.9 and Psychophysiological insomnia F51.04 [facility], [place] [id number] [place] [address] 96217- 9443 January, Acute pain of left knee M25.562 and BMI 50.0-59.9, adult Z68.43 [place] [id number] [place] [address] 78009- 9794 January, [place] [address] 93869- 6752 January, COPD exacerbation J44.1 and Severe persistent asthma with acute exacerbation J45.51 [place] [id number] [place] [address] 36851- 6386 January, Anxiety F41.9 and Psychophysiological insomnia F51.04 [place] [address] [place] [address] 92729- 6572 January, COPD exacerbation J44.1 and Left medial knee pain M25.562 [place] [id number] [place] [address] 30451- 7132 Dec, COPD with exacerbation J44.1 ; BMI 45.0-49.9, adult Z68.42 ; SVETLANA treated with BiPAP G47.33 and Psychophysiological insomnia F51.04 [place] [id number] [place] [address] 16142- 4224 Dec, [place] [address] 71169- 5718 Dec, Acute pain of left knee M25.562 ; Unspecified fall, initial encounter W19.XXXA ; Unspecified place in unspecified non-institutional (private ) residence as the place of occurrence of the external cause Y92.009 ; BMI 45.0- 49.9, adult Z68.42 and Severe persistent asthma with acute exacerbation J45.51 [place] [id number] [place] [address] 63189- 3529 Dec, Anxiety F41.9 and Psychophysiological insomnia F51.04 [place] [id number] [place] [address] 28945- 0125 Nov, Psychophysiological insomnia F51.04 [place] [id number] [place] [address] 54984- 1541 Oct, [place] [id number] [place] [address] 41648- 7384 Oct, Anxiety F41.9 [place] [id number] [place] [address] 21000- 3176 Oct, [place] [id number] [place] [address] 59254- 7038 Oct, Severe persistent asthma with acute exacerbation J45.51 ; Tobacco abuse Z72.0 and BMI 45.0-49.9, adult Z68.42 [facility] [place] [id number] [place] [address] 22649- 7833 Oct, Psychophysiological insomnia F51.04 [facility], [place] [id number] [place] [address] 21371- 4440 Sep, Anxiety F41.9 [facility], [place] [address] 54181- 3094 Sep, Anxiety F41.9 and Habitual self-excoriation F42.4 [facility] [place] [id number] [place] [address] 82779- 9834 Sep, Psychophysiological insomnia F51.04 [facility] [place] [id number] [place] [address] 71880- 2308 Aug, Anxiety F41.9 [facility] [place] [address] 05594- 5368 Aug, Asthma J45.909 [facility] [place] [address] 89990- 8411 Aug, Anxiety F41.9 [facility] [id number] [place] [address] 90996 -7214 Aug, Acute bronchitis, unspecified organism J20.9 [facility] [place] [id number] [place] [address] 75671- 8755 Aug, Psychophysiological insomnia F51.04 [facility] [place] [id number] [place] [address] 93396- 4517 Jul, Therapeutic drug monitoring Z51.81 [place] [address] 90695- 3696 Jul, [facility] [place] [id number] [place] [address] 30438- 8099 Jul, Habitual self-excoriation F42.4 [facility] [place] [address] [place] [address]- 6885 08 Jul, 2017 [facility] [place] [id number] [place] [address] 99176- 3052 Jul, [facility] [place] [id number] [place] [address] 78182- 3571 Jun, SVETLANA treated with BiPAP G47.33 ; Moderate persistent asthma without complication J45.40 ; Anxiety F41.9 ; Other obesity due to excess calories E66.09 ; Body mass index (BMI) of 40.0-44.9 in adult Z68.41 ; Psychophysiological insomnia F51.04 and Encounter for immunization Z23 [place] [address] 58450- 7073 Jun, [place] [id number] [place] [address] 56748- 6446 Jun, Habitual self-excoriation F42.4 ; Adjustment disorder with depressed mood F43.21 ; Psychophysiological insomnia F51.04 and Eating disorder , unspecified F50.9 [place] [id number] [place] [address] 78731- 7939 Jun, Visit for TB skin test Z11.1 [place] [id number] [place] [address] 20297- 2770 Jun, Habitual self-excoriation F42.4 and Psychophysiological insomnia F51.04 [place] [id number] [place] [address] 10329- 2067 Jun, Asthma J45.909 [place] [id number] [place] [address] 62609- 2794 May, Asthma J45.909 [place] [address] 50471- 5601 May, [place] [id number] [place] [address] 46454- 3839 May, Habitual self-excoriation F42.4 and Psychophysiological insomnia F51.04 [facility] [place] [address] [place] [address] 53205- 5088 Apr, Habitual self-excoriation F42.4 ; Adjustment disorder with depressed mood F43.21 ; Psychophysiological insomnia F51.04 and Eating disorder , unspecified F50.9 [facility] [place] [id number] [place] [address] 12262- 8543 Apr, [facility] [place] [id number] [place] [address] 78937- 6507 Apr, Habitual self-excoriation F42.4 ; Adjustment disorder with depressed mood F43.21 ; Psychophysiological insomnia F51.04 and Other oysterman (current) drug therapy Z79.899 [place] [id number] [place] [address] 95545- 2815 Mar, [place] [address] 97019- 8933 Mar, [place] [id number] [place] [address] 01086- 8014 Mar, Anxiety F41.9 [place] [id number] [place] [address] 80640- 5612 Feb, Asthma J45.909 [place] [id number] [place] [address] 35717- 6177 Feb, [place] [id number] [place] [address] 48068- 7664 Feb, Anxiety F41.9 [place] [id number] [place] [address] 14081- 1543 Feb, Asthma exacerbation J45.901 and Seasonal allergic rhinitis due to pollen J30.1 [facility] [place] [id number] [place] [address] 64556- 1643 January, [place] [id number] [place] [address] 67646- 3749 January, Anxiety F41.9 [facility] [place] [id number] [place] [address] 17804- 1469 Dec, Therapeutic drug monitoring Z51.81 [place] [address] [place] [address] 27428- 0380 Dec, Anxiety F41.9 and Asthma J45.909 [place] [address] 75160- 9938 Nov, Asthma J45.909 [place] [address] [place] [address] 53204- 7293 Nov, Anxiety F41.9 [place] [address] 29274- 0991 Oct, Asthma exacerbation J45.901 ; Pain in right knee M25.561 ; Pain in left knee M25.562 and Open wound of eyebrow, left, subsequent encounter S01.102D [place] [id number] [place] [address] 08313- 8514 16 Oct, 2016 [facility] [id number] [place] [address] 64045 -5469 Oct, Other viral agents as the cause of diseases classified elsewhere B97.89 and Acute upper respiratory infection, unspecified J06.9 [place] [id number] [place] [address] 96033- 9899 Oct, [facility] [place] [id number] [place] [address] 25190- 9880 Oct, [place] [id number] [place] [address] 93921- 5075 Oct, Anxiety F41.9 [facility] [place] [id number] [place] [address] 99462- 2191 Sep, [place] [address] 37271- 8964 Sep, SVET[place]NA treated with BiPAP G47.33 and Asthma J45.909 [place] [address] [place] [address] 32639- 9464 Sep, [place]ET[place] treated with BiPAP G47.33 ; Obesity (BMI 30.0-34.9) E66.9 and Reactive depression F32.9 [place] [address] 42444- 6847 Sep, Anxiety F41.9 [place] [address] 13325- 1576 Aug, [place] [address] 33135- 5084 Aug, Insomnia G47.00 [place] [address] 62734- 0854 Aug, [place] [address] 19421- 3290 Aug, [place]ET[place]NA treated with BiPAP G47.33 and On supplemental oxygen therapy Z99.81 [place] [address] 93766- 9555 Jul, On supplemental oxygen therapy Z99.81 ; Obesity (BMI 30.0- 34.9) E66.9 and SVETLANA treated with BiPAP G47.33 [place] [address] 40558- 3412 Jul, Mucus plugging of bronchi J98.09 ; On supplemental oxygen therapy Z99.81 ; Acute midline thoracic back pain M54.6 and SVETLANA treated with BiPAP G47.33 [place] [address] 86457- 8589 16 Jul, 2016 [place] [address] 38558- 7498 15 Jul, 2016 [place] [address] 26941- 6883 Jul, [facility] [place] [address] [address]- 2660 May, [facility] [place] [id number] [place] [address] 30012- 5950 May, [facility], [place] [address] [address]- 2760 Apr, [facility] [place] [id number] [place] [address] 13276- 6702 Apr, [facility] [place] [address] [place] [address] 55400- 4486 Apr, Insomnia G47.00 ; Anemia D64.9 ; OCD (obsessive compulsive disorder) F42 ; Anxiety F41.9 ; Asthma J45.909 and Obesity (BMI 30.0-34.9) E66.9 [facility] [place] [id number] [place] [address] 50830- 3360 Feb, [facility] [place] [id number] [place] [address] 87218- 5360 Feb, Insomnia G47.00 [facility] [place] [id number] [place] [address] 35602- 7055 Nov, [facility], [place] [address] [address]- 2573 Nov, [facility] [place] [id number] [place] [address] 71369- 1768 15 Nov, 2015 [facility] [place] [address] [place] [address] 52988- 6483 14 Nov, 2015 OCD (obsessive compulsive disorder) F42 ; Anxiety F41.9 ; Insomnia G47.00 ; Anemia D64.9 and Asthma J45.909 [facility], [place] [address] [address]- 2705 Nov, [facility] [place] [id number] [place] [address] 87588- 7897 Oct, [facility], [place] [address] [address]- 9249 Aug, OCD (obsessive compulsive disorder) F42 ; Chronic cellulitis L03.90 ; Anxiety F41.9 ; Insomnia G47.00 ; Anemia D64.9 and Asthma J45.909 [facility], [place] [id number] [address]- 8136 Aug, [facility], [place] [id number] [place] [address] 33056- 9994 Jul, [facility] [place] [id number] [place] [address] 11975- 6765 Jul, OCD (obsessive compulsive disorder) F42 ; Chronic cellulitis L03.90 ; Anxiety F41.9 ; Insomnia G47.00 and Anemia D64.9 [facility] [place] [id number] [place] [address] 18799- 9717 Dec, [facility], [place] [address] [place] [address] 61173- 0256 Dec, [facility], [place] [id number] [place] [address] 50839- 1019 Aug, [facility], [place] [address] [address]- 7941 Aug, [facility], [place] [address] [address]- 1986 Aug, [facility], [place] [address] [address]- 0120 Aug, [facility], [place] [id number] [place] [address] 13800- 8751 Aug, [facility], [place] [address] [address]- 0626 Aug, [facility] [place] [address] [address]- 9788 Aug, [facility] [place] [facility] [address] [id number] [place] [address]- 4617 Jul, [facility] [place] [facility] [address] [id number] [place] [address]- 3280 Jul, [facility] [place] [facility] [address] [id number] [place] [address]- 7908 Jul, [facility] [place] [facility] [address] [id number] [place] [address]- 8093 Jul, [facility] [place] [facility] [address] [id number] [place] [address]- 5041 Apr, [facility] [place] [facility] [address] [id number] [place] [address]- 5594 Apr, [facility] [place] [facility] [address] [id number] [place] [address]- 5665 Feb, [facility] [place] [facility] [address] [id number] [place] [address]- 1621 Feb, [facility] [place] [facility] [address] [id number] [place] [address]- 3115 Feb, [facility] [place] [facility] [address] [id number] [place] [address]- 7366 Feb, [facility] [place] [facility] [address] [id number] [place] [address]- 2379 January, [facility] [place] [facility] [address] [id number] [place] [address]- 2478 January, [facility] [place] [facility] [address] [id number] [place] [address]- 9400 January, [facility] [place] [facility] [address] [id number] [place] [address]- 7907 Dec, [facility] [place] [facility] [address] [id number] [place] [address]- 9475 Dec, [facility] [place] [facility] [address] [id number] [place] [address]- 6630 Dec, [facility] [place] [facility] [address] [id number] [place] [address]- 5722 Dec, [facility] [place] [facility] [address] [id number] [place] [address]- 2814 Nov, [facility] [place] [facility] [address] [facility] [id number] [place] [address]- 1425 Nov, [facility] [place] [facility] [address] [id number] [place] [address]- 0872 Nov, [facility] [place] [facility] [address] [id number] [place] [address]- 2755 Nov, [facility] [place] [facility] [address] [facility] [id number] [place] [address]- 1269 Nov, [facility] [place] [facility] [address] [facility] [id number] [place] [address]- 1951 Nov, [facility] [place] [facility] [address] [id number] [place] [address]- 9571 Oct, [facility] [place] [facility] [address] [id number] [place] [address]- 7229 Oct, [facility] [place] [facility] [address] [facility] [id number] [place] [address]- 0332 Oct, [facility] [place] [facility] [address] [id number] [place] [address]- 2078 Oct, [facility] [place] [facility] [address] [id number] [place] [address]- 0986 Oct, [facility] [place] [facility] [address] [id number] [place] [address]- 3989 Oct, [facility] [place] [facility] [address] [id number] [place] [address]- 5319 Oct, [facility] [place] [facility] [address] [facility] [id number] [address]- 0549 Oct, [facility] [place] [facility] [address] [facility] [id number] [place] [address]- 3146 Oct, [facility] [address] [facility] [id number] [place] [address] Oct, [facility] [address] [facility] [id number] [place] [address] Oct, [facility], [place] [address] [facility] [id number] [place] [address] Oct, [facility], [place] [address] [facility] [id number] [place] [address] Sep, [facility], [place] [address] [facility] [id number] [place] [address] Sep, [facility], [place] [address] [facility] [id number] [place] [address] Sep, [facility], [place] [address] [facility] [id number] [place] [address] Sep, [facility] [place] [address] [facility] [id number] [place] [address] Aug, [facility], [place] [address] [facility] [id number] [place] [address] Aug, [facility], [place] [address] [facility] [id number] [place] [address] Aug, [facility], [place] [address] [facility] [id number] [address] Aug, [facility], [place] [address] [facility] [id number] [address] Aug, [facility], [place] [address] [facility] [id number] [address] Aug, [facility], [place] [address] [facility] [id number] [address] Aug, IMMUNIZATIONS No Known Immunizations SOCIAL HISTORY Never Assessed REASON FOR VISIT f/u ---MARIANGEL Mai PLAN OF CARE Activity Details Follow Up 6 Weeks Reason: VITAL SIGNS Height 65 in 2018-05-20 Weight 299.8 lbs 2018-05-20 Heart Rate 72 bpm 2018-05-20 Respiratory Rate 20 2018-05-20 BMI 49.88 kg/m2 2018-05-20 Blood pressure systolic 112 mmHg 2018-05-20 Blood pressure diastolic 62 mmHg 2018-05-20 MEDICATIONS Medication Instructions Dosage Frequency Start Date End Date Duration Status Celexa 40 MG Orally daily 1 tablet 24h 30 days Active Ventolin HFA 90 MCG/ACT Inhalation every 4 hrs 2 puffs as needed 4h Active Zolpidem Tartrate 10 mg Orally at bedtime as needed 1 tablet Active Ativan 1 MG Orally twice a day as needed 1 tablet Active Wellbutrin SR 150 MG Orally twice a day 1 tablet 12h Apr, 30 days Active Symbicort 160-4.5 mcg/act Inhalation Twice a day 2 puffs 12h Oct, Active RESULTS No Results PROCEDURES No Known procedures INSTRUCTIONS MEDICATIONS ADMINISTERED No Known Medications MEDICAL (GENERAL) HISTORY Type Description Date Medical History asthma Medical History anxiety Medical History gastric bypass 2001 Medical History anemia Medical History sleep apnea treated with biPAP Surgical History gastric bypass 2001 Hospitalization History surgery Hospitalization History anemia Hospitalization History sepsis Hospitalization History Acute hypoxic resp distress--[facility] 07/28/16 Hospitalization History Denies any past psychiatric hospitalization
--- OUTSIDE RECORDS SUMMARY | 2018-10-07 10:18 | XMS REPORT ---
Author Author BRICE RAMIREZ [facility] Address [address] [place] [address] Care Team Providers Care Ticket Writer Name Role Phone BRICE RAMIREZ Unavailable PROBLEMS Type Condition ICD9-CM Code [id number] Code Onset Dates Condition Status SNOMED Code Problem OCD (obsessive compulsive disorder) F42 Active 979933161 Problem Adjustment disorder with depressed mood F43.21 Active 92036472 Problem Chronic cellulitis L03.90 Active 708092969 Problem Eating disorder, unspecified F50.9 Active 73777881 Problem Insomnia G47.00 Active 977939911 Problem Body mass index (BMI) of 40.0-44.9 in adult Z68.41 Active 089653157 Problem Moderate persistent asthma without complication J45.40 Active 732625858 Problem Other obesity due to excess calories E66.09 Active 48221877272587 Problem ROBINA (generalized anxiety disorder) F41.1 Active 79511581 Problem Moderate episode of recurrent major depressive disorder F33.1 Active 877951393 Problem Obesity (BMI 30.0-34.9) E66.9 Active 347067908420999 Problem Asthma J45.909 Active 981985958 Problem Anxiety F41.9 Active 08496311 Problem Severe persistent asthma with acute exacerbation J45.51 Active 044793707 Problem BMI 45.0-49.9, adult Z68.42 Active 602595266 Problem Binge eating disorder F50.81 Active 947130001 Problem COPD exacerbation J44.1 Active 735252623 Problem Other chronic pain G89.29 Active 98459050 Problem Iron deficiency anemia, unspecified iron deficiency anemia type D50.9 Active 53281096 Problem SVETLANA treated with BiPAP G47.33 Active 03543353 Problem Reactive depression F32.9 Active 54300709 Problem Habitual self-excoriation F42.4 Active 797856795 Problem Psychophysiological insomnia F51.04 Active 025169657 Problem Asthma exacerbation J45.901 Active 972899061 Problem Seasonal allergic rhinitis due to pollen J30.1 Active 68343106 ALLERGIES No Information ENCOUNTERS Encounter Location Date Diagnosis [facility] [id number] [place] [address] 45249- 1998 Jul, [facility] [id number] [place] [address] 47967- 6864 Jul, [facility] [address] 82341- 3210 Jun, [facility] [id number] [place] [address] 77857- 8824 13 May, 2018 ROBINA (generalized anxiety disorder) F41.1 ; Moderate episode of recurrent major depressive disorder F33.1 ; Habitual self-excoriation F42.4 and Binge eating disorder F50.81 [facility] [id number] [place] [address] 90754- 4101 May, [facility] [id number] [place] [address] 57098- 6233 Apr, ROBINA (generalized anxiety disorder) F41.1 ; Moderate episode of recurrent major depressive disorder F33.1 ; Binge eating disorder F50.81 ; Excoriation T14.8XXA and BMI 45.0-49.9, adult Z68.42 [facility] [id number] [place] [address] 13203- 9924 Apr, [facility] [id number] [place] [address] 97420- 1538 Apr, [facility] [id number] [place] [address] 56868- 9769 Apr, Diarrhea, unspecified type R19.7 [facility] [id number] [place] [address] 71767- 9664 Apr, Diarrhea, unspecified type R19.7 [facility] [id number] [place] [address] 71359- 8999 02 Aug, 2018 ROBINA (generalized anxiety disorder) F41.1 ; Moderate episode of recurrent major depressive disorder F33.1 ; Excoriation T14.8XXA ; Binge eating disorder F50.81 and BMI 45.0-49.9, adult Z68.42 [facility] [id number] [place] [address] 33163- 8804 Mar, [facility] [id number] [place] [address] 14112 -0591 Mar, Other specified bacterial agents as the cause of diseases classified elsewhere B96.89 ; Local infection of the skin and subcutaneous tissue, unspecified L08.9 ; Fever in other diseases R50.81 and BMI 50.0-59.9, adult Z68.43 [facility] [id number] [place] [address] 77170- 7277 Mar, Habitual self-excoriation F42.4 ; Anxiety F41.9 and Psychophysiological insomnia F51.04 [facility] [address] 71988- 5126 Feb, [facility] [address] 63054- 7955 Feb, Anxiety F41.9 and Psychophysiological insomnia F51.04 [facility] [id number] [place] [address] 58364- 8461 January, Acute pain of left knee M25.562 and BMI 50.0-59.9, adult Z68.43 [facility] [id number] [place] [address] 48529- 1036 January, [facility] [id number] [place] [address] 30627- 4653 January, COPD exacerbation J44.1 and Severe persistent asthma with acute exacerbation J45.51 [facility] [id number] [place] [address] 16930- 8151 January, Anxiety F41.9 and Psychophysiological insomnia F51.04 [facility] [address] [place] [address]- 7301 January, COPD exacerbation J44.1 and Left medial knee pain M25.562 [facility] [id number] [place] [address] 79025- 1347 Dec, COPD with exacerbation J44.1 ; BMI 45.0-49.9, adult Z68.42 ; SVETLANA treated with BiPAP G47.33 and Psychophysiological insomnia F51.04 [facility] [id number] [place] [address] 05357- 2253 Dec, [facility] [id number] [place] [address] 77252- 0665 Dec, Acute pain of left knee M25.562 ; Unspecified fall, initial encounter W19.XXXA ; Unspecified place in unspecified non-institutional (private ) residence as the place of occurrence of the external cause Y92.009 ; BMI 45.0- 49.9, adult Z68.42 and Severe persistent asthma with acute exacerbation J45.51 [facility] [id number] [place] [address] 84855- 9795 Dec, Anxiety F41.9 and Psychophysiological insomnia F51.04 [facility] [id number] [place] [address] 19629- 9949 Nov, Psychophysiological insomnia F51.04 [facility] [id number] [place] [address] 28272- 8164 Oct, [facility] [id number] [place] [address] 26228- 4724 Oct, Anxiety F41.9 [facility] [id number] [place] [address] 91182- 7358 Oct, [facility] [id number] [place] [address] 08549- 8228 Oct, Severe persistent asthma with acute exacerbation J45.51 ; Tobacco abuse Z72.0 and BMI 45.0-49.9, adult Z68.42 [facility] [id number] [place] [address] 13722- 2901 Oct, Psychophysiological insomnia F51.04 [facility] [address] 49620- 0097 Sep, Anxiety F41.9 [facility] [address] 66734- 5939 Sep, Anxiety F41.9 and Habitual self-excoriation F42.4 [facility] [address] 48401- 0800 Sep, Psychophysiological insomnia F51.04 [facility] [address] 72460- 0503 Aug, Anxiety F41.9 [facility] [address] 60862- 2193 Aug, Asthma J45.909 [facility] [address] 94104- 0014 Aug, Anxiety F41.9 [facility] [address] 50142 -9127 Aug, Acute bronchitis, unspecified organism J20.9 [facility] [address] 86768- 0721 Aug, Psychophysiological insomnia F51.04 [facility] [id number] [place] [address] 54532- 7771 Jul, Therapeutic drug monitoring Z51.81 [facility] [address] 26749- 9239 Jul, [facility] [address] 64009- 2270 Jul, Habitual self-excoriation F42.4 [facility] [address] 24641- 6789 Jul, [facility] [id number] [place] [address] 53670- 2652 Jul, [facility] [address] 26854- 2239 Jun, SVETLANA treated with BiPAP G47.33 ; Moderate persistent asthma without complication J45.40 ; Anxiety F41.9 ; Other obesity due to excess calories E66.09 ; Body mass index (BMI) of 40.0-44.9 in adult Z68.41 ; Psychophysiological insomnia F51.04 and Encounter for immunization Z23 [facility] [id number] [place] [address] 52752- 3365 Jun, [facility] [id number] [place] [address] 92288- 1728 Jun, Habitual self-excoriation F42.4 ; Adjustment disorder with depressed mood F43.21 ; Psychophysiological insomnia F51.04 and Eating disorder , unspecified F50.9 [facility] [id number] [place] [address] 00071- 0525 Jun, Visit for TB skin test Z11.1 [facility] [address] 08661- 6570 Jun, Habitual self-excoriation F42.4 and Psychophysiological insomnia F51.04 [facility] [id number] [place] [address] 65464- 5756 Jun, Asthma J45.909 [facility] [id number] [place] [address] 75052- 4554 May, Asthma J45.909 [facility] [address] 50346- 4974 May, [facility] [address] 20691- 4863 May, Habitual self-excoriation F42.4 and Psychophysiological insomnia F51.04 [facility] [id number] [place] [address]- 0320 Apr, Habitual self-excoriation F42.4 ; Adjustment disorder with depressed mood F43.21 ; Psychophysiological insomnia F51.04 and Eating disorder , unspecified F50.9 [facility] [id number] [place] [address] 18767- 3280 Apr, [facility] [id number] [place] [address] 67905- 9128 Apr, Habitual self-excoriation F42.4 ; Adjustment disorder with depressed mood F43.21 ; Psychophysiological insomnia F51.04 and 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 [facility] [id number] [place] [address] 38557- 5949 Mar, [facility] [id number] [place] [address] 16892- 4912 Mar, [facility] [id number] [place] [address] 93885- 6610 Mar, Anxiety F41.9 [facility] [id number] [place] [address] 99124- 1226 Feb, Asthma J45.909 [facility] [id number] [place] [address] 76054- 5673 Feb, [facility] [id number] [place] [address] 05017- 7601 Feb, Anxiety F41.9 [facility] [id number] [place] [address] 01691- 4645 Feb, Asthma exacerbation J45.901 and Seasonal allergic rhinitis due to pollen J30.1 [facility] [id number] [place] [address] 96674- 5539 January, [facility] [id number] [place] [address] 40639- 0382 January, Anxiety F41.9 [facility] [id number] [place] [address] 27829- 9148 Dec, Therapeutic drug monitoring Z51.81 [facility] [address] 70037- 9265 Dec, Anxiety F41.9 and Asthma J45.909 [facility] [address] 53636- 2984 Nov, Asthma J45.909 [facility] [address] 12442- 7443 Nov, Anxiety F41.[address] 02671- 8748 Oct, Asthma exacerbation J45.901 ; Pain in right knee M25.561 ; Pain in left knee M25.562 and Open wound of eyebrow, left, subsequent encounter S01.102D [address] 93959- 5747 16 Oct, 2016 [facility] [id number] [place] [address] 70184 -1661 Oct, Other viral agents as the cause of diseases classified elsewhere B97.89 and Acute upper respiratory infection, unspecified J06.9 [place] [id number] [place] [address] 94085- 8177 Oct, [facility] [id number] [place] [address] 02100- 9701 Oct, [place] [id number] [place] [address] 54714- 6020 Oct, Anxiety F41.9 [facility] [address] 27336- 5269 Sep, [facility] [address] 32381- 2601 Sep, SVETLANA treated with BiPAP G47.33 and Asthma J45.909 [facility] [id number] [place] [address] 61557- 4969 Sep, SVETLANA treated with BiPAP G47.33 ; Obesity (BMI 30.0-34.9) E66.9 and Reactive depression F32.9 [facility] [id number] [place] [address] 66533- 4028 Sep, Anxiety F41.9 [facility] [address] 58346- 5386 Aug, [facility] [address] 20451- 3630 Aug, Insomnia G47.00 [facility] [address] 96691- 1147 Aug, [facility] [address] 72491- 0727 Aug, SVETLANA treated with BiPAP G47.33 and On supplemental oxygen therapy Z99.81 [facility] [id number] [place] [address] 75955- 0798 Jul, On supplemental oxygen therapy Z99.81 ; Obesity (BMI 30.0- 34.9) E66.9 and SVETLANA treated with BiPAP G47.33 [facility] [id number] [place] [address] 72219- 1097 Jul, Mucus plugging of bronchi J98.09 ; On supplemental oxygen therapy Z99.81 ; Acute midline thoracic back pain M54.6 and SVETLANA treated with BiPAP G47.33 [facility] [id number] [place] [address] 58610- 5027 Jul, [facility] [address] 58985- 0276 15 Jul, 2016 [facility] [id number] [place] [address] 70519- 3291 Jul, [facility] [address] [place] [address]- 0964 May, [facility] [id number] [place] [address] 73144- 3563 May, [facility] [id number] [place] [address] 31608- 1029 Apr, [facility] [id number] [place] [address] 48876- 8667 Apr, [facility] [id number] [place] [address] 07967- 9153 Apr, Insomnia G47.00 ; Anemia D64.9 ; OCD (obsessive compulsive disorder) F42 ; Anxiety F41.9 ; Asthma J45.909 and Obesity (BMI 30.0-34.9) E66.9 [facility] [address] [place] [address] 75106- 8669 Feb, [facility] [id number] [place] [address] 93548- 9483 Feb, Insomnia G47.00 [facility] [id number] [place] [address] 15373- 1828 Nov, [facility] [id number] [place] [address] 02268- 8157 Nov, [facility] [address] [place] [address] 85867- 1601 Nov, [facility] [id number] [place] [address] 97903- 0212 Nov, OCD (obsessive compulsive disorder) F42 ; Anxiety F41.9 ; Insomnia G47.00 ; Anemia D64.9 and Asthma J45.909 [facility] [address] [place] [address] 53826- 6061 Nov, [facility] [address] [place] [address] 62799- 7310 Oct, [facility] [id number] [address]- 5728 Aug, OCD (obsessive compulsive disorder) F42 ; Chronic cellulitis L03.90 ; Anxiety F41.9 ; Insomnia G47.00 ; Anemia D64.9 and Asthma J45.909 [facility] [address] [address]- 6304 Aug, [facility] [id number] [place] [address] 31579- 8975 Jul, [facility] [id number] [place] [address] 48714- 4737 Jul, OCD (obsessive compulsive disorder) F42 ; Chronic cellulitis L03.90 ; Anxiety F41.9 ; Insomnia G47.00 and Anemia D64.9 [facility] [address] [place] [address] 84289- 5926 Dec, [facility] [id number] [place] [address] 87603- 6564 Dec, [facility] [address] [place] [address] 53578- 0248 Aug, [facility] [address] [place] [address] 29333- 6152 Aug, [facility] [address] [address]- 4420 14 Aug, 2014 [facility] [address] [place] [address] 15355- 7345 Aug, [facility] [address] [address]- 5857 Aug, [facility] [id number] [place] [address] 69070- 6811 Aug, [facility] [address] [address]- 9328 Aug, [facility] [id number] [place] [address] 13221- 6190 Jul, [facility] [place] [facility] [address] [id number] [place] [address]- 8531 Jul, [facility] [place] [facility] [address] [id number] [place] [address]- 7440 Jul, [facility] [place] [facility] [address] [id number] [place] [address]- 9248 Jul, [facility] [place] [facility] [address] [id number] [place] [address]- 9891 Apr, [facility] [place] [facility] [address] [id number] [place] [address]- 4486 Apr, [facility] [place] [facility] [address] [id number] [place] [address]- 8007 Feb, [facility] [place] [facility] [address] [id number] [place] [address]- 0481 Feb, [facility] [place] [facility] [address] [id number] [place] [address]- 9348 Feb, [facility] [place] [facility] [address] [id number] [place] [address]- 2587 Feb, [facility] [place] [facility] [address] [id number] [place] [address]- 0572 January, [facility] [place] [facility] [address] [id number] [place] [address]- 6094 January, [facility] [place] [facility] [address] [id number] [place] [address]- 5622 January, [facility] [place] [facility] [address] [id number] [place] [address]- 5148 Dec, [facility] [place] [facility] [address] [id number] [place] [address]- 8737 Dec, [facility] [place] [facility] [address] [id number] [place] [address]- 0747 Dec, [facility] [place] [facility] [address] [id number] [place] [address]- 1057 Dec, [facility] [place] [facility] [address] [id number] [place] [address]- 6041 Nov, [facility] [place] [facility] [address] [id number] [place] [address]- 0912 Nov, [facility] [place] [facility] [address] [id number] [place] [address]- 6438 Nov, [facility] [place] [facility] [address] [id number] [place] [address]- 6138 Nov, [facility] [place] [facility] [address] [id number] [place] [address]- 9118 Nov, [facility] [place] [facility] [address] [facility] [id number] [place] [address]- 6519 Nov, [facility] [place] [facility] [address] [id number] [place] [address]- 4095 Oct, [facility] [place] [facility] [address] [id number] [place] [address]- 0248 Oct, [facility] [place] [facility] [address] [facility] [id number] [place] [address]- 4166 Oct, [facility] [place] [facility] [address] [facility] [id number] [place] [address]- 7788 Oct, [facility] [place] [facility] [address] [facility] [id number] [place] [address]- 5002 Oct, [facility] [place] [facility] [address] [id number] [place] [address]- 7089 Oct, [facility] [place] [facility] [address] [id number] [place] [address]- 2203 Oct, [facility] [place] [facility] [address] [facility] [id number] [place] [address]- 2258 Oct, [facility] [place] [facility] [address] [facility] [id number] [address]- 2270 Oct, [facility] [address] [facility] [id number] [address]- 9972 Oct, [facility] [address] [facility] [id number] [place] 4624 Oct, [facility] [address] 7786 Oct, [facility] [address] [facility] [id number] [place] [address]- 9769 Sep, [facility] [address] [facility] [id number] [place] [address]- 2325 Sep, [facility] [address] [facility] [id number] [address]- 1942 Sep, [facility] [address] [address]- 3957 Sep, [facility] [address] [address]- 0586 Aug, [facility] [address] [address]- 4746 Aug, [facility] [id number] [address]- 1947 Aug, [facility] [id number] [address]- 6742 Aug, [facility] [id number] [address]- 4237 Aug, [facility] [address] 4003 Aug, [facility] [id number] 4091 Aug, IMMUNIZATIONS No Known Immunizations SOCIAL HISTORY Never Assessed REASON FOR VISIT PLAN OF CARE VITAL SIGNS MEDICATIONS Medication Instructions Dosage Frequency Start Date End Date Duration Status Meloxicam 15 MG Orally Once a day 1 tablet 24h 30 Active RESULTS No Results PROCEDURES No Known procedures INSTRUCTIONS MEDICATIONS ADMINISTERED No Known Medications MEDICAL (GENERAL) HISTORY Type Description Date Medical History asthma Medical History anxiety Medical History gastric bypass 2001 Medical History anemia Medical History sleep apnea treated with biPAP Surgical History gastric bypass 2001 Hospitalization History surgery Hospitalization History anemia Hospitalization History sepsis Hospitalization History Acute hypoxic resp distress--[facility] 07/28/16 Hospitalization History Denies any past psychiatric hospitalization
--- OUTSIDE RECORDS SUMMARY | 2018-10-07 10:19 | XMS REPORT ---
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 Role Phone BRICE RAMIREZ Unavailable PROBLEMS Type Condition ICD9-CM Code [id number] Code Onset Dates Condition Status SNOMED Code Problem OCD (obsessive compulsive disorder) F42 Active 037580729 Problem Adjustment disorder with depressed mood F43.21 Active 17189631 Problem Chronic cellulitis L03.90 Active 297304275 Problem Eating disorder, unspecified F50.9 Active 60926664 Problem Insomnia G47.00 Active 771564369 Problem Body mass index (BMI) of 40.0-44.9 in adult Z68.41 Active 843508070 Problem Moderate persistent asthma without complication J45.40 Active 462364153 Problem Other obesity due to excess calories E66.09 Active 41901128994469 Problem ROBINA (generalized anxiety disorder) F41.1 Active 92156224 Problem Moderate episode of recurrent major depressive disorder F33.1 Active 910981195 Problem Obesity (BMI 30.0-34.9) E66.9 Active 301793391039247 Problem Asthma J45.909 Active 855960473 Problem Anxiety F41.9 Active 78138793 Problem Severe persistent asthma with acute exacerbation J45.51 Active 582104154 Problem BMI 45.0-49.9, adult Z68.42 Active 922923589 Problem Binge eating disorder F50.81 Active 826973881 Problem COPD exacerbation J44.1 Active 624157729 Problem Other chronic pain G89.29 Active 60657118 Problem Iron deficiency anemia, unspecified iron deficiency anemia type D50.9 Active 00910681 Problem SVETLANA treated with BiPAP G47.33 Active 29472520 Problem Reactive depression F32.9 Active 76131547 Problem Habitual self-excoriation F42.4 Active 604418247 Problem Psychophysiological insomnia F51.04 Active 376280227 Problem Asthma exacerbation J45.901 Active 471065658 Problem Seasonal allergic rhinitis due to pollen J30.1 Active 44386189 ALLERGIES No Information ENCOUNTERS Encounter Location Date Diagnosis [facility] [facility] [id number] [place] [address] 70182- 6665 Jul, [facility] [id number] [place] [address] 67026- 2619 Jul, [facility] [address] 17756- 3579 Jun, [facility] [id number] [place] [address] 09356- 6598 13 May, 2018 ROBINA (generalized anxiety disorder) F41.1 ; Moderate episode of recurrent major depressive disorder F33.1 ; Habitual self-excoriation F42.4 and Binge eating disorder F50.81 [facility] [facility] [id number] [place] [address] 77165- 3160 May, [facility] [facility] [id number] [place] [address] 40010- 1526 Apr, ROBINA (generalized anxiety disorder) F41.1 ; Moderate episode of recurrent major depressive disorder F33.1 ; Binge eating disorder F50.81 ; Excoriation T14.8XXA and BMI 45.0-49.9, adult Z68.42 [facility] [facility] [id number] [place] [address] 74337- 7813 Apr, [facility] [id number] [place] [address] 37818- 0954 Apr, [facility] [facility] [id number] [place] [address] 97533- 2270 Apr, Diarrhea, unspecified type R19.7 [facility] [id number] [place] [address] 22559- 2885 Apr, Diarrhea, unspecified type R19.7 [facility] [facility] [id number] [place] [address] 25921- 7421 02 Aug, 2018 ROBINA (generalized anxiety disorder) F41.1 ; Moderate episode of recurrent major depressive disorder F33.1 ; Excoriation T14.8XXA ; Binge eating disorder F50.81 and BMI 45.0-49.9, adult Z68.42 [facility] [id number] [place] [address] 84224- 3779 Mar, [facility] [id number] [place] [address] 07790 -6407 Mar, Other specified bacterial agents as the cause of diseases classified elsewhere B96.89 ; Local infection of the skin and subcutaneous tissue, unspecified L08.9 ; Fever in other diseases R50.81 and BMI 50.0-59.9, adult Z68.43 [facility] [id number] [place] [address] 48407- 8218 Mar, Habitual self-excoriation F42.4 ; Anxiety F41.9 and Psychophysiological insomnia F51.04 [place] [address] 72127- 9800 Feb, [place] [address] 18414- 6753 Feb, Anxiety F41.9 and Psychophysiological insomnia F51.04 [facility] [id number] [place] [address] 28421- 3719 January, Acute pain of left knee M25.562 and BMI 50.0-59.9, adult Z68.43 [facility] [facility] [id number] [place] [address] 42540- 6009 January, [facility] [id number] [place] [address] 50634- 6039 January, COPD exacerbation J44.1 and Severe persistent asthma with acute exacerbation J45.51 [facility] [facility] [id number] [place] [address] 49815- 0864 January, Anxiety F41.9 and Psychophysiological insomnia F51.04 [facility] [address] [place] [address]- 4123 January, COPD exacerbation J44.1 and Left medial knee pain M25.562 [facility] [facility] [id number] [place] [address] 11100- 2435 Dec, COPD with exacerbation J44.1 ; BMI 45.0-49.9, adult Z68.42 ; SVETLANA treated with BiPAP G47.33 and Psychophysiological insomnia F51.04 [facility] [facility] [id number] [place] [address] 97371- 6392 Dec, [facility] [id number] [place] [address] 61035- 2967 Dec, Acute pain of left knee M25.562 ; Unspecified fall, initial encounter W19.XXXA ; Unspecified place in unspecified non-institutional (private ) residence as the place of occurrence of the external cause Y92.009 ; BMI 45.0- 49.9, adult Z68.42 and Severe persistent asthma with acute exacerbation J45.51 [facility] [id number] [place] [address] 56658- 3331 Dec, Anxiety F41.9 and Psychophysiological insomnia F51.04 [facility] [id number] [place] [address] 06304- 3922 Nov, Psychophysiological insomnia F51.04 [facility] [id number] [place] [address] 68929- 6589 Oct, [facility] [id number] [place] [address] 36078- 1488 Oct, Anxiety F41.9 [facility] [id number] [place] [address] 99112- 2414 Oct, [facility] [facility] [id number] [place] [address] 74571- 9863 Oct, Severe persistent asthma with acute exacerbation J45.51 ; Tobacco abuse Z72.0 and BMI 45.0-49.9, adult Z68.42 [facility] [id number] [place] [address] 35274- 4897 Oct, Psychophysiological insomnia F51.04 [facility] [address] 18472- 4355 Sep, Anxiety F41.9 [facility] [address] 66860- 9485 Sep, Anxiety F41.9 and Habitual self-excoriation F42.4 [place] [address] 79102- 6997 Sep, Psychophysiological insomnia F51.04 [place] [address] 49563- 6852 Aug, Anxiety F41.9 [facility] [address] 85604- 3661 Aug, Asthma J45.909 [facility] [address] 37347- 4756 Aug, Anxiety F41.9 [facility] [address] 63971 -0934 Aug, Acute bronchitis, unspecified organism J20.9 [place] [address] 42918- 9452 Aug, Psychophysiological insomnia F51.04 [facility] [facility] [id number] [place] [address] 11767- 4484 Jul, Therapeutic drug monitoring Z51.81 [facility] [address] 79098- 0537 Jul, [place] [address] 32839- 5605 Jul, Habitual self-excoriation F42.4 [place] [address] 26073- 4204 Jul, [place] [id number] [place] [address] 76856- 5940 Jul, [place] [address] 81562- 8749 Jun, SVETLANA treated with BiPAP G47.33 ; Moderate persistent asthma without complication J45.40 ; Anxiety F41.9 ; Other obesity due to excess calories E66.09 ; Body mass index (BMI) of 40.0-44.9 in adult Z68.41 ; Psychophysiological insomnia F51.04 and Encounter for immunization Z23 [facility] [id number] [place] [address] 38414- 3808 Jun, [place] [id number] [place] [address] 14630- 9491 Jun, Habitual self-excoriation F42.4 ; Adjustment disorder with depressed mood F43.21 ; Psychophysiological insomnia F51.04 and Eating disorder , unspecified F50.9 [place] [id number] [place] [address] 89395- 5844 Jun, Visit for TB skin test Z11.1 [place] [address] 56377- 6320 Jun, Habitual self-excoriation F42.4 and Psychophysiological insomnia F51.04 [place] [id number] [place] [address] 15464- 4441 Jun, Asthma J45.909 [place] [address] [place] [address] 90923- 3816 May, Asthma J45.909 [facility] [address] 30371- 4666 May, [place] [address] 84700- 5545 May, Habitual self-excoriation F42.4 and Psychophysiological insomnia F51.04 [place] [address] [place] [address]- 3373 Apr, Habitual self-excoriation F42.4 ; Adjustment disorder with depressed mood F43.21 ; Psychophysiological insomnia F51.04 and Eating disorder , unspecified F50.9 [facility] [id number] [place] [address] 97097- 6938 Apr, [facility] [id number] [place] [address] 07947- 5686 Apr, Habitual self-excoriation F42.4 ; Adjustment disorder with depressed mood F43.21 ; Psychophysiological insomnia F51.04 and Other ocean transportation intermediary (current) drug therapy Z79.899 [place] [address] [place] [address] 75769- 5325 Mar, [facility] [id number] [place] [address] 35284- 2719 Mar, [facility] [address] [place] [address] 99017- 7725 Mar, Anxiety F41.9 [facility] [id number] [place] [address] 09250- 8085 Feb, Asthma J45.909 [facility] [id number] [place] [address] 21770- 3564 Feb, [facility] [address] [place] [address] 05866- 9320 Feb, Anxiety F41.9 [facility] [id number] [place] [address] 67351- 4753 Feb, Asthma exacerbation J45.901 and Seasonal allergic rhinitis due to pollen J30.1 [facility] [id number] [place] [address] 44684- 5323 January, [facility] [id number] [place] [address] 89384- 6374 January, Anxiety F41.9 [facility] [id number] [place] [address] 36226- 2947 Dec, Therapeutic drug monitoring Z51.81 [facility] [address] 14489- 4036 Dec, Anxiety F41.9 and Asthma J45.909 [place] [address] 88063- 7310 Nov, Asthma J45.909 [place] [address] 92651- 7390 Nov, Anxiety F41.[address] 57630- 6690 Oct, Asthma exacerbation J45.901 ; Pain in right knee M25.561 ; Pain in left knee M25.562 and Open wound of eyebrow, left, subsequent encounter S01.102D [address] 00113- 5670 16 Oct, 2016 [facility] [id number] [place] [address] 09797 -1885 Oct, Other viral agents as the cause of diseases classified elsewhere B97.89 and Acute upper respiratory infection, unspecified J06.9 [place] [id number] [place] [address] 83932- 0689 Oct, [facility] [id number] [place] [address] 40207- 5616 Oct, [place] [id number] [place] [address] 99024- 4561 Oct, Anxiety F41.9 [place] [address] 78881- 7080 Sep, [place] [address] 30567- 2151 Sep, [place]ET[place]NA treated with BiPAP G47.33 and Asthma J45.909 [facility] [id number] [place] [address] 10372- 8429 Sep, SVETLANA treated with BiPAP G47.33 ; Obesity (BMI 30.0-34.9) E66.9 and Reactive depression F32.9 [facility] [id number] [place] [address] 28928- 0607 Sep, Anxiety F41.9 [facility] [address] 57723- 3431 Aug, [facility] [address] 74293- 6903 Aug, Insomnia G47.00 [place] [address] 62908- 6357 Aug, [facility] [address] 61358- 0546 Aug, SVET[place]NA treated with BiPAP G47.33 and On supplemental oxygen therapy Z99.81 [facility] [id number] [place] [address] 48540- 4714 Jul, On supplemental oxygen therapy Z99.81 ; Obesity (BMI 30.0- 34.9) E66.9 and SVETLANA treated with BiPAP G47.33 [place] [id number] [place] [address] 39784- 8942 Jul, Mucus plugging of bronchi J98.09 ; On supplemental oxygen therapy Z99.81 ; Acute midline thoracic back pain M54.6 and SVETLANA treated with BiPAP G47.33 [facility] [id number] [place] [address] 59136- 9180 Jul, [facility] [address] 81732- 9210 15 Jul, 2016 [facility] [id number] [place] [address] 78461- 9958 Jul, [facility] [address] [place] [address]- 1531 May, [facility] [id number] [place] [address] 18087- 9520 May, [facility] [id number] [place] [address] 98452- 9381 Apr, [facility] [id number] [place] [address] 40563- 7305 Apr, [facility] [address] [place] [address] 23406- 3404 Apr, Insomnia G47.00 ; Anemia D64.9 ; OCD (obsessive compulsive disorder) F42 ; Anxiety F41.9 ; Asthma J45.909 and Obesity (BMI 30.0-34.9) E66.9 [facility] [address] [place] [address] 50097- 4184 Feb, [facility] [id number] [place] [address] 55784- 1657 Feb, Insomnia G47.00 [facility] [id number] [place] [address] 59563- 4402 Nov, [facility] [id number] [place] [address] 07983- 6692 Nov, [facility] [address] [place] [address] 37367- 7010 Nov, [facility] [id number] [place] [address] 04957- 4128 Nov, OCD (obsessive compulsive disorder) F42 ; Anxiety F41.9 ; Insomnia G47.00 ; Anemia D64.9 and Asthma J45.909 [facility] [address] [place] [address] 41749- 6399 Nov, [facility] [address] [place] [address] 55384- 5608 Oct, [facility] [id number] [address]- 1782 Aug, OCD (obsessive compulsive disorder) F42 ; Chronic cellulitis L03.90 ; Anxiety F41.9 ; Insomnia G47.00 ; Anemia D64.9 and Asthma J45.909 [facility] [address] [address]- 5614 Aug, [facility] [id number] [place] [address] 31829- 6512 Jul, [facility] [address] [place] [address] 37370- 0140 Jul, OCD (obsessive compulsive disorder) F42 ; Chronic cellulitis L03.90 ; Anxiety F41.9 ; Insomnia G47.00 and Anemia D64.9 [facility] [address] [place] [address] 27198- 2501 Dec, [facility] [id number] [place] [address] 73277- 8435 Dec, [facility] [address] [place] [address] 07727- 4458 Aug, [facility] [address] [place] [address] 90442- 9316 Aug, [facility] [address] [address]- 9447 14 Aug, 2014 [facility] [address] [place] [address] 24042- 6899 Aug, [facility] [address] [address]- 7603 Aug, [facility] [id number] [place] [address] 46690- 4887 Aug, [facility] [address] [address]- 5636 Aug, [facility] [id number] [place] [address] 75538- 2448 Jul, [facility] [place] [facility] [address] [id number] [place] [address]- 0208 Jul, [facility] [place] [facility] [address] [id number] [place] [address]- 6254 Jul, [facility] [place] [facility] [address] [id number] [place] [address]- 4149 Jul, [facility] [place] [facility] [address] [id number] [place] [address]- 5835 Apr, [facility] [place] [facility] [address] [id number] [place] [address]- 9733 Apr, [facility] [place] [facility] [address] [id number] [place] [address]- 7372 Feb, [facility] [place] [facility] [address] [id number] [place] [address]- 2536 Feb, [facility] [place] [facility] [address] [id number] [place] [address]- 9315 Feb, [facility] [place] [facility] [address] [id number] [place] [address]- 3198 Feb, [facility] [place] [facility] [address] [id number] [place] [address]- 2143 January, [facility] [place] [facility] [address] [id number] [place] [address]- 4989 January, [facility] [place] [facility] [address] [id number] [place] [address]- 5445 January, [facility] [place] [facility] [address] [id number] [place] [address]- 2881 Dec, [facility] [place] [facility] [address] [id number] [place] [address]- 3778 Dec, [facility] [place] [facility] [address] [id number] [place] [address]- 1732 Dec, [facility] [place] [facility] [address] [id number] [place] [address]- 1219 Dec, [facility] [place] [facility] [address] [id number] [place] [address]- 5158 Nov, [facility] [place] [facility] [address] [id number] [place] [address]- 9819 Nov, [facility] [place] [facility] [address] [id number] [place] [address]- 0148 Nov, [facility] [place] [facility] [address] [id number] [place] [address]- 9819 Nov, [facility] [place] [facility] [address] [id number] [place] [address]- 5334 Nov, [facility] [place] [facility] [address] [facility] [id number] [place] [address]- 5035 Nov, [facility] [place] [facility] [address] [id number] [place] [address]- 8812 Oct, [facility] [place] [facility] [address] [id number] [place] [address]- 8485 Oct, [facility] [place] [facility] [address] [facility] [id number] [place] [address]- 1920 Oct, [facility] [place] [facility] [address] [facility] [id number] [place] [address]- 0111 Oct, [facility] [place] [facility] [address] [facility] [id number] [place] [address]- 2330 Oct, [facility] [place] [facility] [address] [id number] [place] [address]- 5119 Oct, [facility] [place] [facility] [address] [id number] [place] [address]- 3496 Oct, [facility] [place] [facility] [address] [facility] [id number] [place] [address]- 4622 Oct, [facility] [place] [facility] [address] [facility] [id number] [address]- 7904 Oct, [facility] [address] [facility] [id number], [place] [address]- 2181 Oct, [facility] [address] [facility] [id number] 8709 Oct, [facility] [address] 7497 Oct, [facility] [address] [facility] [id number], [place] [address]- 7814 Sep, [facility] [address] [facility] [id number], [place] [address]- 7045 Sep, [facility] [address] [facility] [id number], [place] [address]- 1166 Sep, [facility] [address] [address]- 0272 Sep, [facility] [address] [address] Aug, [facility] [id number] [address] Aug, [facility] [id number] [address] Aug, [facility] [id number] [address] Aug, [facility] [id number] [address] Aug, [facility] [id number] [address] Aug, [facility] [id number] [address] Aug, IMMUNIZATIONS No Known Immunizations SOCIAL HISTORY [...] History sepsis Hospitalization History Acute hypoxic resp distress--[facility] 07/28/16 Hospitalization History Denies any past psychiatric hospitalization
--- OUTSIDE RECORDS SUMMARY | 2018-10-07 10:19 | XMS REPORT ---
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 Name Role Phone BRICE RAMIREZ Unavailable PROBLEMS Type Condition ICD9-CM Code DMI33-HU Code Onset Dates Condition Status SNOMED Code Problem OCD (obsessive compulsive disorder) F42 Active 109812654 Problem Adjustment disorder with depressed mood F43.21 Active 84979342 Problem Chronic cellulitis L03.90 Active 944144511 Problem Eating disorder, unspecified F50.9 Active 79453939 Problem Insomnia G47.00 Active 372140617 Problem Body mass index (BMI) of 40.0-44.9 in adult Z68.41 Active 183088079 Problem Moderate persistent asthma without complication J45.40 Active 078393420 Problem Other obesity due to excess calories E66.09 Active 99431041807708 Problem ROBINA (generalized anxiety disorder) F41.1 Active 55338289 Problem Moderate episode of recurrent major depressive disorder F33.1 Active 582688539 Problem Obesity (BMI 30.0-34.9) E66.9 Active 599816862005313 Problem Asthma J45.909 Active 833420562 Problem Anxiety F41.9 Active 16606738 Problem Severe persistent asthma with acute exacerbation J45.51 Active 503807763 Problem BMI 45.0-49.9, adult Z68.42 Active 225521665 Problem Binge eating disorder F50.81 Active 141017488 Problem COPD exacerbation J44.1 Active 161922352 Problem Other chronic pain G89.29 Active 88374706 Problem Iron deficiency anemia, unspecified iron deficiency anemia type D50.9 Active 63671771 Problem SVETLANA treated with BiPAP G47.33 Active 45155675 Problem Reactive depression F32.9 Active 47534258 Problem Habitual self-excoriation F42.4 Active 074398189 Problem Psychophysiological insomnia F51.04 Active 316600944 Problem Asthma exacerbation J45.901 Active 491992870 Problem Seasonal allergic rhinitis due to pollen J30.1 Active 80228125 ALLERGIES No Information ENCOUNTERS Encounter Location Date Diagnosis [place] [id number] [place] [address] 31980- 2039 Jul, [place] [id number] [place] [address] 16963- 2216 Jul, [place] [address] 33635- 3866 Jun, [place] [id number] [place] [address] 48917- 8740 13 May, 2018 ROBINA (generalized anxiety disorder) F41.1 ; Moderate episode of recurrent major depressive disorder F33.1 ; Habitual self-excoriation F42.4 and Binge eating disorder F50.81 [place] [id number] [place] [address] 65177- 4491 May, [place] [id number] [place] [address] 35137- 1090 Apr, ROBINA (generalized anxiety disorder) F41.1 ; Moderate episode of recurrent major depressive disorder F33.1 ; Binge eating disorder F50.81 ; Excoriation T14.8XXA and BMI 45.0-49.9, adult Z68.42 [place] [id number] [place] [address] 15624- 4468 Apr, [place] [id number] [place] [address] 36532- 1274 Apr, [place] [id number] [place] [address] 73838- 6194 Apr, Diarrhea, unspecified type R19.7 [place] [id number] [place] [address] 86958- 2866 Apr, Diarrhea, unspecified type R19.7 [place] [id number] [place] [address] 95213- 0162 02 Aug, 2018 ROBINA (generalized anxiety disorder) F41.1 ; Moderate episode of recurrent major depressive disorder F33.1 ; Excoriation T14.8XXA ; Binge eating disorder F50.81 and BMI 45.0-49.9, adult Z68.42 [facility] [id number] [place] [address] 02191- 7925 Mar, [facility] [id number] [place] [address] 76589 -5549 Mar, Other specified bacterial agents as the cause of diseases classified elsewhere B96.89 ; Local infection of the skin and subcutaneous tissue, unspecified L08.9 ; Fever in other diseases R50.81 and BMI 50.0-59.9, adult Z68.43 [place] [id number] [place] [address] 00046- 0882 Mar, Habitual self-excoriation F42.4 ; Anxiety F41.9 and Psychophysiological insomnia F51.04 [place] [address] 09062- 9656 Feb, [place] [address] 41683- 5750 Feb, Anxiety F41.9 and Psychophysiological insomnia F51.04 [place] [id number] [place] [address] 76653- 7476 January, Acute pain of left knee M25.562 and BMI 50.0-59.9, adult Z68.43 [place] [id number] [place] [address] 44024- 9197 January, [place] [id number] [place] [address] 09858- 5091 January, COPD exacerbation J44.1 and Severe persistent asthma with acute exacerbation J45.51 [place] [id number] [place] [address] 77571- 8256 January, Anxiety F41.9 and Psychophysiological insomnia F51.04 [place] [address] [place] [address]- 0754 January, COPD exacerbation J44.1 and Left medial knee pain M25.562 [place] [id number] [place] [address] 16222- 7079 Dec, COPD with exacerbation J44.1 ; BMI 45.0-49.9, adult Z68.42 ; SVETLANA treated with BiPAP G47.33 and Psychophysiological insomnia F51.04 [place] [id number] [place] [address] 65256- 8622 Dec, [place] [id number] [place] [address] 58601- 4178 Dec, Acute pain of left knee M25.562 ; Unspecified fall, initial encounter W19.XXXA ; Unspecified place in unspecified non-institutional (private ) residence as the place of occurrence of the external cause Y92.009 ; BMI 45.0- 49.9, adult Z68.42 and Severe persistent asthma with acute exacerbation J45.51 [place] [id number] [place] [address] 03532- 5486 Dec, Anxiety F41.9 and Psychophysiological insomnia F51.04 [place] [id number] [place] [address] 77839- 9923 Nov, Psychophysiological insomnia F51.04 [place] [id number] [place] [address] 02949- 4971 Oct, [place] [id number] [place] [address] 07762- 2822 Oct, Anxiety F41.9 [place] [id number] [place] [address] 22034- 7664 Oct, [place] [id number] [place] [address] 29278- 3480 Oct, Severe persistent asthma with acute exacerbation J45.51 ; Tobacco abuse Z72.0 and BMI 45.0-49.9, adult Z68.42 [place] [id number] [place] [address] 05343- 1326 Oct, Psychophysiological insomnia F51.04 [place] [address] 60928- 4141 Sep, Anxiety F41.9 [facility] [address] 43691- 2436 Sep, Anxiety F41.9 and Habitual self-excoriation F42.4 [place] [address] 51157- 7725 Sep, Psychophysiological insomnia F51.04 [place] [address] 50797- 2455 Aug, Anxiety F41.9 [place] [address] 35443- 6730 Aug, Asthma J45.909 [place] [address] 87480- 1130 Aug, Anxiety F41.9 [facility] [address] 10861 -4013 Aug, Acute bronchitis, unspecified organism J20.9 [place] [address] 75669- 9470 Aug, Psychophysiological insomnia F51.04 [place] [id number] [place] [address] 64234- 7649 Jul, Therapeutic drug monitoring Z51.81 [place] [address] 82320- 8862 Jul, [place] [address] 35487- 0757 Jul, Habitual self-excoriation F42.4 [place] [address] 04090- 3527 Jul, [place] [id number] [place] [address] 26728- 0246 Jul, [place] [address] 39568- 1789 Jun, SVETLANA treated with BiPAP G47.33 ; Moderate persistent asthma without complication J45.40 ; Anxiety F41.9 ; Other obesity due to excess calories E66.09 ; Body mass index (BMI) of 40.0-44.9 in adult Z68.41 ; Psychophysiological insomnia F51.04 and Encounter for immunization Z23 [place] [id number] [place] [address] 40584- 6731 Jun, [place] [id number] [place] [address] 14789- 7054 Jun, Habitual self-excoriation F42.4 ; Adjustment disorder with depressed mood F43.21 ; Psychophysiological insomnia F51.04 and Eating disorder , unspecified F50.9 [place] [id number] [place] [address] 30293- 1267 Jun, Visit for TB skin test Z11.1 [place] [address] 03640- 3570 Jun, Habitual self-excoriation F42.4 and Psychophysiological insomnia F51.04 [place] [id number] [place] [address] 05992- 3208 Jun, Asthma J45.909 [place] [id number] [place] [address] 68622- 4934 May, Asthma J45.909 [place] [address] 25412- 3007 May, [place] [address] 59015- 6432 May, Habitual self-excoriation F42.4 and Psychophysiological insomnia F51.04 [place] [id number] [place] [address]- 3494 Apr, Habitual self-excoriation F42.4 ; Adjustment disorder with depressed mood F43.21 ; Psychophysiological insomnia F51.04 and Eating disorder , unspecified F50.9 [facility] [id number] [place] [address] 25988- 4885 Apr, [facility] [id number] [place] [address] 64761- 7324 Apr, Habitual self-excoriation F42.4 ; Adjustment disorder with depressed mood F43.21 ; Psychophysiological insomnia F51.04 and 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 [place] [id number] [place] [address] 04939- 2793 Mar, [facility] [id number] [place] [address] 22197- 3756 Mar, [facility] [id number] [place] [address] 12538- 8978 Mar, Anxiety F41.9 [facility] [id number] [place] [address] 10907- 8196 Feb, Asthma J45.909 [facility] [id number] [place] [address] 83706- 1225 Feb, [facility] [id number] [place] [address] 99171- 3685 Feb, Anxiety F41.9 [facility] [id number] [place] [address] 93212- 9440 Feb, Asthma exacerbation J45.901 and Seasonal allergic rhinitis due to pollen J30.1 [facility] [id number] [place] [address] 30411- 3031 January, [facility] [id number] [place] [address] 77268- 4889 January, Anxiety F41.9 [facility] [address] [place] [address] 78185- 8108 Dec, Therapeutic drug monitoring Z51.81 [place] [address] 43827- 0164 Dec, Anxiety F41.9 and Asthma J45.909 [place] [address] 65883- 1730 Nov, Asthma J45.909 [place] [address] 18482- 1998 Nov, Anxiety F41.[address] 62674- 2637 Oct, Asthma exacerbation J45.901 ; Pain in right knee M25.561 ; Pain in left knee M25.562 and Open wound of eyebrow, left, subsequent encounter S01.102D [address] 95681- 4177 16 Oct, 2016 [facility] [id number] [place] [address] 82938 -9311 Oct, Other viral agents as the cause of diseases classified elsewhere B97.89 and Acute upper respiratory infection, unspecified J06.9 [place] [id number] [place] [address] 21314- 5898 Oct, [place] [id number] [place] [address] 81050- 6882 Oct, [place] [id number] [place] [address] 90224- 4236 Oct, Anxiety F41.9 [place] [address] 96476- 2281 Sep, [place] [address] 62137- 4647 Sep, SVETLANA treated with BiPAP G47.33 and Asthma J45.909 [facility] [id number] [place] [address] 85492- 9534 Sep, SVETLANA treated with BiPAP G47.33 ; Obesity (BMI 30.0-34.9) E66.9 and Reactive depression F32.9 [facility] [id number] [place] [address] 68821- 1791 Sep, Anxiety F41.9 [facility] [address] 07747- 5349 Aug, [facility] [address] 42994- 8710 Aug, Insomnia G47.00 [place] [address] 44243- 3260 Aug, [facility] [address] 73488- 7196 Aug, SVETLANA treated with BiPAP G47.33 and On supplemental oxygen therapy Z99.81 [facility] [id number] [place] [address] 58237- 2515 Jul, On supplemental oxygen therapy Z99.81 ; Obesity (BMI 30.0- 34.9) E66.9 and SVETLANA treated with BiPAP G47.33 [place] [address] [place] [address] 90085- 7936 Jul, Mucus plugging of bronchi J98.09 ; On supplemental oxygen therapy Z99.81 ; Acute midline thoracic back pain M54.6 and SVETLANA treated with BiPAP G47.33 [facility] [id number] [place] [address] 58070- 5378 Jul, [facility] [address] 94541- 1563 15 Jul, 2016 [facility] [id number] [place] [address] 26743- 8941 Jul, [facility] [address] [place] [address]- 3657 May, [facility] [id number] [place] [address] 44465- 3448 May, [facility] [id number] [place] [address] 36331- 9739 Apr, [facility] [id number] [place] [address] 00369- 1107 Apr, [facility] [id number] [place] [address] 30417- 1804 Apr, Insomnia G47.00 ; Anemia D64.9 ; OCD (obsessive compulsive disorder) F42 ; Anxiety F41.9 ; Asthma J45.909 and Obesity (BMI 30.0-34.9) E66.9 [facility] [address] [place] [address] 24840- 7733 Feb, [facility] [id number] [place] [address] 94509- 5259 Feb, Insomnia G47.00 [facility] [id number] [place] [address] 70805- 9645 Nov, [facility] [id number] [place] [address] 32094- 7364 Nov, [facility] [address] [place] [address] 81612- 3046 Nov, [facility] [id number] [place] [address] 58105- 9697 Nov, OCD (obsessive compulsive disorder) F42 ; Anxiety F41.9 ; Insomnia G47.00 ; Anemia D64.9 and Asthma J45.909 [facility] [address] [place] [address] 38409- 4967 Nov, [facility] [address] [place] [address] 60730- 4765 Oct, [facility] [id number] [address]- 3908 Aug, OCD (obsessive compulsive disorder) F42 ; Chronic cellulitis L03.90 ; Anxiety F41.9 ; Insomnia G47.00 ; Anemia D64.9 and Asthma J45.909 [facility] [address] [address]- 2655 Aug, [facility] [id number] [place] [address] 80335- 6996 Jul, [facility] [id number] [place] [address] 47883- 1322 Jul, OCD (obsessive compulsive disorder) F42 ; Chronic cellulitis L03.90 ; Anxiety F41.9 ; Insomnia G47.00 and Anemia D64.9 [facility] [address] [place] [address] 25009- 0288 Dec, [facility] [id number] [place] [address] 91064- 3305 Dec, [facility] [address] [place] [address] 73226- 4953 Aug, [facility] [address] [place] [address] 82694- 8783 Aug, [facility] [address] [address]- 2806 14 Aug, 2014 [facility] [address] [place] [address] 71768- 6216 Aug, [facility] [address] [address]- 8966 Aug, [facility] [id number] [place] [address] 60953- 6076 Aug, [facility] [address] [address]- 2490 Aug, [facility] [id number] [place] [address] 44038- 1018 Jul, [facility] [place] [facility] [address] [id number] [place] [address]- 2596 Jul, [facility] [place] [facility] [address] [id number] [place] [address]- 6864 Jul, [facility] [place] [facility] [address] [id number] [place] [address]- 9960 Jul, [facility] [place] [facility] [address] [id number] [place] [address]- 7764 Apr, [facility] [place] [facility] [address] [id number] [place] [address]- 5182 Apr, [facility] [place] [facility] [address] [id number] [place] [address]- 2731 Feb, [facility] [place] [facility] [address] [id number] [place] [address]- 4638 Feb, [facility] [place] [facility] [address] [id number] [place] [address]- 7319 Feb, [facility] [place] [facility] [address] [id number] [place] [address]- 6066 Feb, [facility] [place] [facility] [address] [id number] [place] [address]- 9749 January, [facility] [place] [facility] [address] [id number] [place] [address]- 5110 January, [facility] [place] [facility] [address] [id number] [place] [address]- 1498 January, [facility] [place] [facility] [address] [id number] [place] [address]- 9061 Dec, [facility] [place] [facility] [address] [id number] [place] [address]- 4318 Dec, [facility] [place] [facility] [address] [id number] [place] [address]- 0238 Dec, [facility] [place] [facility] [address] [id number] [place] [address]- 2700 Dec, [facility] [place] [facility] [address] [id number] [place] [address]- 5188 Nov, [facility] [place] [facility] [address] [id number] [place] [address]- 7133 Nov, [facility] [place] [facility] [address] [id number] [place] [address]- 3043 Nov, [facility] [place] [facility] [address] [id number] [place] [address]- 0415 Nov, [facility] [place] [facility] [address] [id number] [place] [address]- 5839 Nov, [facility] [place] [facility] [address] [facility] [id number] [place] [address]- 6597 Nov, [facility] [place] [facility] [address] [id number] [place] [address]- 9948 Oct, [facility] [place] [facility] [address] [id number] [place] [address]- 9073 Oct, [facility] [place] [facility] [address] [facility] [id number] [place] [address]- 7643 Oct, [facility] [place] [facility] [address] [facility] [id number] [place] [address]- 8792 Oct, [facility] [place] [facility] [address] [facility] [id number] [place] [address]- 0612 Oct, [facility] [place] [facility] [address] [id number] [place] [address]- 1298 Oct, [facility] [place] [facility] [address] [id number] [place] [address]- 7561 Oct, [facility] [place] [facility] [address] [facility] [id number] [place] [address]- 4016 Oct, [facility] [place] [facility] [address] [facility] [id number] [address]- 2688 Oct, [facility] [address] [address]- 1130 Oct, [facility] [address] 5828 Oct, [facility] [address] 7295 Oct, [facility] [address] [place] [address]- 7122 Sep, [facility] [address] [address]- 2041 Sep, [facility] [address] [place] [address]- 5966 Sep, [facility] [address] [place] [address]- 3839 Sep, [facility] [address] [place] [address]- 4915 Aug, [facility] [address] [address]- 0233 Aug, [facility] [address] [place] [address]- 8492 Aug, [facility] [address] [place] [address]- 3775 Aug, [facility] [address] [place] [address]- 0248 Aug, [facility] [address] [place] [address]- 8304 Aug, [facility] [address] [place] [address]- 6175 Aug, IMMUNIZATIONS No Known Immunizations SOCIAL HISTORY Never Assessed REASON FOR VISIT Lab (walk-in) PLAN OF CARE VITAL SIGNS MEDICATIONS Unknown Medications RESULTS No Results PROCEDURES Procedure Date Ordered Result Body Site C DIFF AMPLIFIED PROBE Apr 27, 2018 INSTRUCTIONS MEDICATIONS ADMINISTERED No Known Medications MEDICAL (GENERAL) HISTORY Type Description Date Medical History asthma Medical History anxiety Medical History gastric bypass 2001 Medical History anemia Medical History sleep apnea treated with biPAP Surgical History gastric bypass 2001 Hospitalization History surgery Hospitalization History anemia Hospitalization History sepsis Hospitalization History Acute hypoxic resp distress[facility] 07/28/16 Hospitalization History Denies any past psychiatric hospitalization
--- OUTSIDE RECORDS SUMMARY | 2018-10-07 10:19 | XMS REPORT ---
Author Author BRICE RAMIREZ [facility] Address [address] [place] [address] Care Team Providers Care [employer] Name Role Phone BRICE RAMIREZ Unavailable PROBLEMS Type Condition ICD9-CM Code WHL52-QM Code Onset Dates Condition Status SNOMED Code Problem OCD (obsessive compulsive disorder) F42 Active 422237971 Problem Adjustment disorder with depressed mood F43.21 Active 99525169 Problem Chronic cellulitis L03.90 Active 003166271 Problem Eating disorder, unspecified F50.9 Active 71012552 Problem Insomnia G47.00 Active 009780223 Problem Body mass index (BMI) of 40.0-44.9 in adult Z68.41 Active 992409296 Problem Moderate persistent asthma without complication J45.40 Active 086279935 Problem Other obesity due to excess calories E66.09 Active 80006975949483 Problem ROBINA (generalized anxiety disorder) F41.1 Active 62545566 Problem Moderate episode of recurrent major depressive disorder F33.1 Active 769441136 Problem Obesity (BMI 30.0-34.9) E66.9 Active 873736215692902 Problem Asthma J45.909 Active 203431644 Problem Anxiety F41.9 Active 49017808 Problem Severe persistent asthma with acute exacerbation J45.51 Active 139325222 Problem BMI 45.0-49.9, adult Z68.42 Active 501728111 Problem Binge eating disorder F50.81 Active 345306588 Problem COPD exacerbation J44.1 Active 158160132 Problem Other chronic pain G89.29 Active 18802729 Problem Iron deficiency anemia, unspecified iron deficiency anemia type D50.9 Active 43534333 Problem SVETLANA treated with BiPAP G47.33 Active 73414476 Problem Reactive depression F32.9 Active 62365174 Problem Habitual self-excoriation F42.4 Active 300029810 Problem Psychophysiological insomnia F51.04 Active 155993147 Problem Asthma exacerbation J45.901 Active 577705533 Problem Seasonal allergic rhinitis due to pollen J30.1 Active 36107859 ALLERGIES No Information ENCOUNTERS Encounter Location Date Diagnosis [place] [id number] [place] [address] 41733- 2859 Jul, [place] [id number] [place] [address] 96434- 9844 Jul, [place] [address] 82020- 6781 Jun, [place] [id number] [place] [address] 98685- 6219 13 May, 2018 ROBINA (generalized anxiety disorder) F41.1 ; Moderate episode of recurrent major depressive disorder F33.1 ; Habitual self-excoriation F42.4 and Binge eating disorder F50.81 [place] [id number] [place] [address] 72404- 7900 May, [place] [id number] [place] [address] 15277- 0124 Apr, ROBINA (generalized anxiety disorder) F41.1 ; Moderate episode of recurrent major depressive disorder F33.1 ; Binge eating disorder F50.81 ; Excoriation T14.8XXA and BMI 45.0-49.9, adult Z68.42 [place] [id number] [place] [address] 74705- 9428 Apr, [place] [id number] [place] [address] 06595- 0841 Apr, [place] [id number] [place] [address] 71170- 3358 Apr, Diarrhea, unspecified type R19.7 [place] [id number] [place] [address] 11266- 8945 Apr, Diarrhea, unspecified type R19.7 [place] [id number] [place] [address] 58825- 7313 02 Aug, 2018 ROBINA (generalized anxiety disorder) F41.1 ; Moderate episode of recurrent major depressive disorder F33.1 ; Excoriation T14.8XXA ; Binge eating disorder F50.81 and BMI 45.0-49.9, adult Z68.42 [facility] [id number] [place] [address] 43860- 9366 Mar, [facility] [id number] [place] [address] 19040 -6508 Mar, Other specified bacterial agents as the cause of diseases classified elsewhere B96.89 ; Local infection of the skin and subcutaneous tissue, unspecified L08.9 ; Fever in other diseases R50.81 and BMI 50.0-59.9, adult Z68.43 [place] [id number] [place] [address] 21388- 2792 Mar, Habitual self-excoriation F42.4 ; Anxiety F41.9 and Psychophysiological insomnia F51.04 [place] [address] 41430- 2290 Feb, [place] [address] 87446- 5278 Feb, Anxiety F41.9 and Psychophysiological insomnia F51.04 [place] [id number] [place] [address] 13223- 0964 January, Acute pain of left knee M25.562 and BMI 50.0-59.9, adult Z68.43 [place] [id number] [place] [address] 14313- 9352 January, [place] [id number] [place] [address] 80547- 1452 January, COPD exacerbation J44.1 and Severe persistent asthma with acute exacerbation J45.51 [place] [id number] [place] [address] 37372- 8767 January, Anxiety F41.9 and Psychophysiological insomnia F51.04 [place] [address] [place] [address]- 4938 January, COPD exacerbation J44.1 and Left medial knee pain M25.562 [place] [id number] [place] [address] 72895- 8660 Dec, COPD with exacerbation J44.1 ; BMI 45.0-49.9, adult Z68.42 ; SVETLANA treated with BiPAP G47.33 and Psychophysiological insomnia F51.04 [place] [id number] [place] [address] 25386- 6948 Dec, [place] [id number] [place] [address] 05949- 8118 Dec, Acute pain of left knee M25.562 ; Unspecified fall, initial encounter W19.XXXA ; Unspecified place in unspecified non-institutional (private ) residence as the place of occurrence of the external cause Y92.009 ; BMI 45.0- 49.9, adult Z68.42 and Severe persistent asthma with acute exacerbation J45.51 [place] [id number] [place] [address] 40371- 6499 Dec, Anxiety F41.9 and Psychophysiological insomnia F51.04 [place] [id number] [place] [address] 92126- 0549 Nov, Psychophysiological insomnia F51.04 [place] [id number] [place] [address] 99940- 1003 Oct, [place] [id number] [place] [address] 09788- 6816 Oct, Anxiety F41.9 [place] [id number] [place] [address] 71478- 5026 Oct, [place] [id number] [place] [address] 27786- 5362 Oct, Severe persistent asthma with acute exacerbation J45.51 ; Tobacco abuse Z72.0 and BMI 45.0-49.9, adult Z68.42 [place] [id number] [place] [address] 91269- 5374 Oct, Psychophysiological insomnia F51.04 [place] [address] 98285- 7369 Sep, Anxiety F41.9 [facility] [address] 88483- 3944 Sep, Anxiety F41.9 and Habitual self-excoriation F42.4 [place] [address] 21905- 3855 Sep, Psychophysiological insomnia F51.04 [place] [address] 32937- 4828 Aug, Anxiety F41.9 [place] [address] 64216- 6616 Aug, Asthma J45.909 [place] [address] 29901- 7864 Aug, Anxiety F41.9 [facility] [address] 85140 -5087 Aug, Acute bronchitis, unspecified organism J20.9 [place] [address] 92373- 7712 Aug, Psychophysiological insomnia F51.04 [place] [id number] [place] [address] 11524- 5555 Jul, Therapeutic drug monitoring Z51.81 [place] [address] 33496- 3173 Jul, [place] [address] 03305- 3723 Jul, Habitual self-excoriation F42.4 [place] [address] 07214- 4862 Jul, [place] [id number] [place] [address] 10168- 2917 Jul, [place] [address] 03108- 8018 Jun, SVETLANA treated with BiPAP G47.33 ; Moderate persistent asthma without complication J45.40 ; Anxiety F41.9 ; Other obesity due to excess calories E66.09 ; Body mass index (BMI) of 40.0-44.9 in adult Z68.41 ; Psychophysiological insomnia F51.04 and Encounter for immunization Z23 [place] [id number] [place] [address] 93517- 3709 Jun, [place] [id number] [place] [address] 49478- 2739 Jun, Habitual self-excoriation F42.4 ; Adjustment disorder with depressed mood F43.21 ; Psychophysiological insomnia F51.04 and Eating disorder , unspecified F50.9 [place] [id number] [place] [address] 75953- 8326 Jun, Visit for TB skin test Z11.1 [place] [address] 57340- 8672 Jun, Habitual self-excoriation F42.4 and Psychophysiological insomnia F51.04 [place] [id number] [place] [address] 63108- 0452 Jun, Asthma J45.909 [place] [id number] [place] [address] 12497- 8323 May, Asthma J45.909 [place] [address] 54489- 9945 May, [place] [address] 69851- 7284 May, Habitual self-excoriation F42.4 and Psychophysiological insomnia F51.04 [place] [address] [address] [place] [address]- 7870 Apr, Habitual self-excoriation F42.4 ; Adjustment disorder with depressed mood F43.21 ; Psychophysiological insomnia F51.04 and Eating disorder , unspecified F50.9 [facility] [id number] [place] [address] 28000- 5521 Apr, [facility] [id number] [place] [address] 43758- 8731 Apr, Habitual self-excoriation F42.4 ; Adjustment disorder with depressed mood F43.21 ; Psychophysiological insomnia F51.04 and 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 [place] [id number] [place] [address] 00308- 1900 Mar, [facility] [id number] [place] [address] 44499- 8458 Mar, [facility] [id number] [place] [address] 65970- 2207 Mar, Anxiety F41.9 [facility] [id number] [place] [address] 37600- 6586 Feb, Asthma J45.909 [facility] [id number] [place] [address] 06747- 1950 Feb, [facility] [id number] [place] [address] 79079- 5211 Feb, Anxiety F41.9 [facility] [id number] [place] [address] 82420- 7001 Feb, Asthma exacerbation J45.901 and Seasonal allergic rhinitis due to pollen J30.1 [facility] [id number] [place] [address] 03686- 1393 January, [facility] [id number] [place] [address] 26836- 5556 January, Anxiety F41.9 [facility] [id number] [place] [address] 19858- 4524 Dec, Therapeutic drug monitoring Z51.81 [place] [address] 98063- 3322 Dec, Anxiety F41.9 and Asthma J45.909 [place] [address] 78429- 5125 Nov, Asthma J45.909 [place] [address] 83210- 1414 Nov, Anxiety F41.[address] 32700- 1109 Oct, Asthma exacerbation J45.901 ; Pain in right knee M25.561 ; Pain in left knee M25.562 and Open wound of eyebrow, left, subsequent encounter S01.102D [address] 65700- 9744 16 Oct, 2016 [facility] [id number] [place] [address] 52247 -9330 Oct, Other viral agents as the cause of diseases classified elsewhere B97.89 and Acute upper respiratory infection, unspecified J06.9 [place] [id number] [place] [address] 79374- 1683 Oct, [place] [id number] [place] [address] 95880- 2303 Oct, [place] [id number] [place] [address] 02694- 4189 Oct, Anxiety F41.9 [place] [address] 90038- 8896 Sep, [place] [address] 55812- 2384 Sep, SVETLANA treated with BiPAP G47.33 and Asthma J45.909 [facility] [id number] [place] [address] 37675- 9083 Sep, SVETLANA treated with BiPAP G47.33 ; Obesity (BMI 30.0-34.9) E66.9 and Reactive depression F32.9 [facility] [id number] [place] [address] 32374- 5349 Sep, Anxiety F41.9 [facility] [address] 71945- 6017 Aug, [facility] [address] 46527- 0941 Aug, Insomnia G47.00 [place] [address] 98116- 5634 Aug, [facility] [address] 97124- 5835 Aug, SVETLANA treated with BiPAP G47.33 and On supplemental oxygen therapy Z99.81 [facility] [id number] [place] [address] 26095- 2716 Jul, On supplemental oxygen therapy Z99.81 ; Obesity (BMI 30.0- 34.9) E66.9 and SVETLANA treated with BiPAP G47.33 [place] [id number] [place] [address] 15261- 2084 Jul, Mucus plugging of bronchi J98.09 ; On supplemental oxygen therapy Z99.81 ; Acute midline thoracic back pain M54.6 and SVETLANA treated with BiPAP G47.33 [facility] [id number] [place] [address] 63455- 4799 Jul, [facility] [address] 18713- 5122 15 Jul, 2016 [facility] [id number] [place] [address] 98628- 1286 Jul, [facility] [address] [place] [address]- 4911 May, [facility] [id number] [place] [address] 63946- 5724 May, [facility] [id number] [place] [address] 48791- 9383 Apr, [facility] [id number] [place] [address] 61049- 3276 Apr, [facility] [id number] [place] [address] 41549- 5455 Apr, Insomnia G47.00 ; Anemia D64.9 ; OCD (obsessive compulsive disorder) F42 ; Anxiety F41.9 ; Asthma J45.909 and Obesity (BMI 30.0-34.9) E66.9 [facility] [address] [place] [address] 04390- 0856 Feb, [facility] [id number] [place] [address] 57304- 7591 Feb, Insomnia G47.00 [facility] [id number] [place] [address] 78795- 4327 Nov, [facility] [id number] [place] [address] 51592- 2938 Nov, [facility] [address] [place] [address] 77030- 2348 Nov, [facility] [id number] [place] [address] 02495- 9783 Nov, OCD (obsessive compulsive disorder) F42 ; Anxiety F41.9 ; Insomnia G47.00 ; Anemia D64.9 and Asthma J45.909 [facility] [address] [place] [address] 83342- 4196 Nov, [facility] [address] [place] [address] 92850- 0834 Oct, [facility] [id number] [address]- 8729 Aug, OCD (obsessive compulsive disorder) F42 ; Chronic cellulitis L03.90 ; Anxiety F41.9 ; Insomnia G47.00 ; Anemia D64.9 and Asthma J45.909 [facility] [address] [address]- 2970 Aug, [facility] [id number] [place] [address] 63016- 2341 Jul, [facility] [id number] [place] [address] 75047- 1196 Jul, OCD (obsessive compulsive disorder) F42 ; Chronic cellulitis L03.90 ; Anxiety F41.9 ; Insomnia G47.00 and Anemia D64.9 [facility] [id number] [place] [address] 63639- 6088 Dec, [facility] [id number] [place] [address] 65030- 6584 Dec, [facility] [id number] [place] [address] 01497- 3949 Aug, [facility] [id number] [place] [address] 40672- 4072 Aug, [facility] [address] [address]- 8453 14 Aug, 2014 [facility] [id number] [place] [address] 61636- 8407 Aug, [facility] [address] [address]- 0304 Aug, [facility] [id number] [place] [address] 09997- 5567 Aug, [facility] [address] [address]- 9914 Aug, [facility] [id number] [place] [address] 45407- 5974 Jul, [facility] [place] [facility] [address] [id number] [place] [address]- 8134 Jul, [facility] [place] [facility] [address] [id number] [place] [address]- 0823 Jul, [facility] [place] [facility] [address] [id number] [place] [address]- 3710 Jul, [facility] [place] [facility] [address] [id number] [place] [address]- 2335 Apr, [facility] [place] [facility] [address] [id number] [place] [address]- 3475 Apr, [facility] [place] [facility] [address] [id number] [place] [address]- 1004 Feb, [facility] [place] [facility] [address] [id number] [place] [address]- 3959 Feb, [facility] [place] [facility] [address] [id number] [place] [address]- 3108 Feb, [facility] [place] [facility] [address] [id number] [place] [address]- 7706 Feb, [facility] [place] [facility] [address] [id number] [place] [address]- 9236 January, [facility] [place] [facility] [address] [id number] [place] [address]- 4845 January, [facility] [place] [facility] [address] [id number] [place] [address]- 3622 January, [facility] [place] [facility] [address] [id number] [place] [address]- 7918 Dec, [facility] [place] [facility] [address] [id number] [place] [address]- 6698 Dec, [facility] [place] [facility] [address] [id number] [place] [address]- 4390 Dec, [facility] [place] [facility] [address] [id number] [place] [address]- 3138 Dec, [facility] [place] [facility] [address] [id number] [place] [address]- 0650 Nov, [facility] [place] [facility] [address] [id number] [place] [address]- 0800 Nov, [facility] [place] [facility] [address] [id number] [place] [address]- 9219 Nov, [facility] [place] [facility] [address] [id number] [place] [address]- 0081 Nov, [facility] [place] [facility] [address] [id number] [place] [address]- 2645 Nov, [facility] [place] [facility] [address] [facility] [id number] [place] [address]- 4198 Nov, [facility] [place] [facility] [address] [id number] [place] [address]- 9720 Oct, [facility] [place] [facility] [address] [id number] [place] [address]- 8677 Oct, [facility] [place] [facility] [address] [facility] [id number] [place] [address]- 0466 Oct, [facility] [place] [facility] [address] [facility] [id number] [place] [address]- 0602 Oct, [facility] [place] [facility] [address] [facility] [id number] [place] [address]- 1065 Oct, [facility] [place] [facility] [address] [id number] [place] [address]- 6090 Oct, [facility] [place] [facility] [address] [id number] [place] [address]- 9386 Oct, [facility] [place] [facility] [address] [facility] [id number] [place] [address]- 1554 Oct, [facility] [place] [facility] [address] [facility] [id number], [place] [address]- 9934 Oct, [facility] [address] [facility] [id number], [place] [address]- 0417 Oct, [facility] [address] [facility] [id number] 2478 Oct, [facility] [address] 5713 Oct, [facility] [address] [address]- 4750 Sep, [facility] [address] [address]- 2260 Sep, [facility] [address] [place] [address]- 3812 Sep, [facility] [address] [address]- 4551 Sep, [facility] [address] [address]- 7270 Aug, [facility] [address] [place] [address]- 5570 Aug, [facility] [address] [place] [address]- 7803 Aug, [facility] [address] [place] [address]- 8601 Aug, [facility] [id number] [address]- 1807 Aug, [facility] [address] [place] [address]- 0162 Aug, [facility] [address] [place] [address]- 5154 Aug, IMMUNIZATIONS No Known Immunizations SOCIAL HISTORY Never Assessed REASON FOR VISIT Requests return call PLAN OF CARE VITAL SIGNS MEDICATIONS Unknown Medications RESULTS No Results PROCEDURES No Known procedures INSTRUCTIONS MEDICATIONS ADMINISTERED No Known Medications MEDICAL (GENERAL) HISTORY Type Description Date Medical History asthma Medical History anxiety Medical History gastric bypass 2001 Medical History anemia Medical History sleep apnea treated with biPAP Surgical History gastric bypass 2001 Hospitalization History surgery Hospitalization History anemia Hospitalization History sepsis Hospitalization History Acute hypoxic resp distress--[facility] 07/28/16 Hospitalization History Denies any past psychiatric hospitalization
--- OUTSIDE RECORDS SUMMARY | 2018-10-07 10:20 | XMS REPORT ---
Author Author BRICE RAMIREZ [facility] Address [address] [place] [address] Care Team Providers Care Engineering Inspector Name Role Phone BRICE RAMIREZ Unavailable PROBLEMS Type Condition ICD9-CM Code OSQ66-TY Code Onset Dates Condition Status SNOMED Code Problem OCD (obsessive compulsive disorder) F42 Active 365340462 Problem Adjustment disorder with depressed mood F43.21 Active 52649132 Problem Chronic cellulitis L03.90 Active 941796937 Problem Eating disorder, unspecified F50.9 Active 37081628 Problem Insomnia G47.00 Active 055169635 Problem Body mass index (BMI) of 40.0-44.9 in adult Z68.41 Active 982184064 Problem Moderate persistent asthma without complication J45.40 Active 726523823 Problem Other obesity due to excess calories E66.09 Active 90863478855901 Problem ROBINA (generalized anxiety disorder) F41.1 Active 17400451 Problem Moderate episode of recurrent major depressive disorder F33.1 Active 669418448 Problem Obesity (BMI 30.0-34.9) E66.9 Active 636473873807715 Problem Asthma J45.909 Active 900757483 Problem Anxiety F41.9 Active 01039470 Problem Severe persistent asthma with acute exacerbation J45.51 Active 026855499 Problem BMI 45.0-49.9, adult Z68.42 Active 622575246 Problem Binge eating disorder F50.81 Active 698750753 Problem COPD exacerbation J44.1 Active 187940475 Problem Other chronic pain G89.29 Active 70600174 Problem Iron deficiency anemia, unspecified iron deficiency anemia type D50.9 Active 22273792 Problem SVETLANA treated with BiPAP G47.33 Active 82562139 Problem Reactive depression F32.9 Active 06817623 Problem Habitual self-excoriation F42.4 Active 048476104 Problem Psychophysiological insomnia F51.04 Active 210646082 Problem Asthma exacerbation J45.901 Active 329474328 Problem Seasonal allergic rhinitis due to pollen J30.1 Active 03995171 ALLERGIES No Information ENCOUNTERS Encounter Location Date Diagnosis [facility] [id number] [place] [address] 26641- 4442 Jul, [facility] [id number] [place] [address] 08810- 9387 Jul, [facility] [address] 95844- 1359 Jun, [facility] [id number] [place] [address] 78127- 9763 13 May, 2018 ROBINA (generalized anxiety disorder) F41.1 ; Moderate episode of recurrent major depressive disorder F33.1 ; Habitual self-excoriation F42.4 and Binge eating disorder F50.81 [facility] [id number] [place] [address] 77731- 9648 May, [facility] [id number] [place] [address] 23146- 3674 Apr, ROBINA (generalized anxiety disorder) F41.1 ; Moderate episode of recurrent major depressive disorder F33.1 ; Binge eating disorder F50.81 ; Excoriation T14.8XXA and BMI 45.0-49.9, adult Z68.42 [facility] [id number] [place] [address] 76681- 8678 Apr, [facility] [id number] [place] [address] 98076- 3342 Apr, [facility] [id number] [place] [address] 81508- 2515 Apr, Diarrhea, unspecified type R19.7 [facility] [id number] [place] [address] 09207- 3274 Apr, Diarrhea, unspecified type R19.7 [facility] [id number] [place] [address] 59802- 1729 02 Aug, 2018 ROBINA (generalized anxiety disorder) F41.1 ; Moderate episode of recurrent major depressive disorder F33.1 ; Excoriation T14.8XXA ; Binge eating disorder F50.81 and BMI 45.0-49.9, adult Z68.42 [facility] [id number] [place] [address] 42623- 8416 Mar, [facility] [id number] [place] [address] 52412 -6353 Mar, Other specified bacterial agents as the cause of diseases classified elsewhere B96.89 ; Local infection of the skin and subcutaneous tissue, unspecified L08.9 ; Fever in other diseases R50.81 and BMI 50.0-59.9, adult Z68.43 [facility] [id number] [place] [address] 16726- 7045 Mar, Habitual self-excoriation F42.4 ; Anxiety F41.9 and Psychophysiological insomnia F51.04 [facility] [facility] [address] 68818- 1093 Feb, [facility] [address] 65819- 9817 Feb, Anxiety F41.9 and Psychophysiological insomnia F51.04 [facility] [id number] [place] [address] 37791- 4454 January, Acute pain of left knee M25.562 and BMI 50.0-59.9, adult Z68.43 [facility] [id number] [place] [address] 65603- 8306 January, [facility] [id number] [place] [address] 89348- 3826 January, COPD exacerbation J44.1 and Severe persistent asthma with acute exacerbation J45.51 [facility] [id number] [place] [address] 04839- 5182 January, Anxiety F41.9 and Psychophysiological insomnia F51.04 [facility] [address] [place] [address]- 4195 January, COPD exacerbation J44.1 and Left medial knee pain M25.562 [facility] [id number] [place] [address] 50006- 6628 Dec, COPD with exacerbation J44.1 ; BMI 45.0-49.9, adult Z68.42 ; SVETLANA treated with BiPAP G47.33 and Psychophysiological insomnia F51.04 [facility] [id number] [place] [address] 88095- 8233 Dec, [facility] [id number] [place] [address] 50423- 5160 Dec, Acute pain of left knee M25.562 ; Unspecified fall, initial encounter W19.XXXA ; Unspecified place in unspecified non-institutional (private ) residence as the place of occurrence of the external cause Y92.009 ; BMI 45.0- 49.9, adult Z68.42 and Severe persistent asthma with acute exacerbation J45.51 [facility] [id number] [place] [address] 35236- 1314 Dec, Anxiety F41.9 and Psychophysiological insomnia F51.04 [facility] [id number] [place] [address] 44334- 2429 Nov, Psychophysiological insomnia F51.04 [facility] [id number] [place] [address] 83082- 6524 Oct, [facility] [id number] [place] [address] 89109- 5342 Oct, Anxiety F41.9 [facility] [id number] [place] [address] 51299- 1709 Oct, [facility] [id number] [place] [address] 17975- 3509 Oct, Severe persistent asthma with acute exacerbation J45.51 ; Tobacco abuse Z72.0 and BMI 45.0-49.9, adult Z68.42 [facility] [id number] [place] [address] 72049- 4044 Oct, Psychophysiological insomnia F51.04 [facility] [address] 74167- 0291 Sep, Anxiety F41.9 [facility] [address] 35837- 2702 Sep, Anxiety F41.9 and Habitual self-excoriation F42.4 [facility] [address] 53122- 6508 Sep, Psychophysiological insomnia F51.04 [facility] [address] 75736- 8679 Aug, Anxiety F41.9 [facility] [address] 07230- 7279 Aug, Asthma J45.909 [facility] [address] 90228- 2336 Aug, Anxiety F41.9 [facility] [address] 29336 -0321 Aug, Acute bronchitis, unspecified organism J20.9 [facility] [address] 09266- 5039 Aug, Psychophysiological insomnia F51.04 [facility] [id number] [place] [address] 77549- 8328 Jul, Therapeutic drug monitoring Z51.81 [facility] [address] 08299- 6433 Jul, [facility] [address] 13726- 3369 Jul, Habitual self-excoriation F42.4 [facility] [address] 86925- 7571 Jul, [facility] [place] [id number] [place] [address] 40877- 7057 Jul, [facility] [address] 44311- 7335 Jun, SVETLANA treated with BiPAP G47.33 ; Moderate persistent asthma without complication J45.40 ; Anxiety F41.9 ; Other obesity due to excess calories E66.09 ; Body mass index (BMI) of 40.0-44.9 in adult Z68.41 ; Psychophysiological insomnia F51.04 and Encounter for immunization Z23 [facility] [id number] [place] [address] 77157- 5203 Jun, [facility] [id number] [place] [address] 15059- 3167 Jun, Habitual self-excoriation F42.4 ; Adjustment disorder with depressed mood F43.21 ; Psychophysiological insomnia F51.04 and Eating disorder , unspecified F50.9 [facility] [id number] [place] [address] 84372- 8665 Jun, Visit for TB skin test Z11.1 [facility] [address] 77217- 4395 Jun, Habitual self-excoriation F42.4 and Psychophysiological insomnia F51.04 [facility] [id number] [place] [address] 33755- 1014 Jun, Asthma J45.909 [facility] [id number] [place] [address] 06383- 6681 May, Asthma J45.909 [facility] [address] 35251- 8933 May, [facility] [address] 11835- 2835 May, Habitual self-excoriation F42.4 and Psychophysiological insomnia F51.04 [facility] [id number] [place] [address]- 8624 Apr, Habitual self-excoriation F42.4 ; Adjustment disorder with depressed mood F43.21 ; Psychophysiological insomnia F51.04 and Eating disorder , unspecified F50.9 [facility] [id number] [place] [address] 53629- 4197 Apr, [facility] [id number] [place] [address] 02851- 9352 Apr, Habitual self-excoriation F42.4 ; Adjustment disorder with depressed mood F43.21 ; Psychophysiological insomnia F51.04 and 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 [facility] [id number] [place] [address] 75457- 8326 Mar, [facility] [id number] [place] [address] 55881- 0763 Mar, [facility] [id number] [place] [address] 86105- 1178 Mar, Anxiety F41.9 [facility] [id number] [place] [address] 38768- 6797 Feb, Asthma J45.909 [facility] [id number] [place] [address] 33714- 8728 Feb, [facility] [id number] [place] [address] 37980- 1659 Feb, Anxiety F41.9 [facility] [id number] [place] [address] 49956- 9357 Feb, Asthma exacerbation J45.901 and Seasonal allergic rhinitis due to pollen J30.1 [facility] [id number] [place] [address] 87173- 9168 January, [facility] [id number] [place] [address] 12307- 3489 January, Anxiety F41.9 [facility] [id number] [place] [address] 32245- 6346 Dec, Therapeutic drug monitoring Z51.81 [facility] [address] 68601- 9481 Dec, Anxiety F41.9 and Asthma J45.909 [facility] [address] 58647- 7868 Nov, Asthma J45.909 [facility] [address] 85863- 7448 Nov, Anxiety F41.[address] 73150- 0246 Oct, Asthma exacerbation J45.901 ; Pain in right knee M25.561 ; Pain in left knee M25.562 and Open wound of eyebrow, left, subsequent encounter S01.102D [address] 62730- 1462 16 Oct, 2016 [facility] [id number] [place] [address] 40541 -9028 Oct, Other viral agents as the cause of diseases classified elsewhere B97.89 and Acute upper respiratory infection, unspecified J06.9 [place] [id number] [place] [address] 15067- 9962 Oct, [facility] [id number] [place] [address] 83867- 1984 Oct, [place] [id number] [place] [address] 64939- 4393 Oct, Anxiety F41.9 [facility] [address] 88019- 9204 Sep, [facility] [address] 32823- 4151 Sep, SVETLANA treated with BiPAP G47.33 and Asthma J45.909 [facility] [id number] [place] [address] 45942- 3190 Sep, [place]ET[place]NA treated with BiPAP G47.33 ; Obesity (BMI 30.0-34.9) E66.9 and Reactive depression F32.9 [facility] [id number] [place] [address] 02274- 0838 Sep, Anxiety F41.9 [facility] [address] 48578- 8484 Aug, [facility] [address] 35744- 9484 Aug, Insomnia G47.00 [facility] [address] 48672- 8440 Aug, [facility] [address] 92181- 8004 Aug, SVETLANA treated with BiPAP G47.33 and On supplemental oxygen therapy Z99.81 [facility] [id number] [place] [address] 15364- 7387 Jul, On supplemental oxygen therapy Z99.81 ; Obesity (BMI 30.0- 34.9) E66.9 and SVETLANA treated with BiPAP G47.33 [facility] [place] [id number] [place] [address] 14701- 7845 Jul, Mucus plugging of bronchi J98.09 ; On supplemental oxygen therapy Z99.81 ; Acute midline thoracic back pain M54.6 and SVETLANA treated with BiPAP G47.33 [facility] [id number] [place] [address] 84012- 8950 Jul, [facility] [address] 68602- 4012 15 Jul, 2016 [facility] [id number] [place] [address] 40658- 2449 Jul, [facility] [address] [place] [address]- 0659 May, [facility] [id number] [place] [address] 25120- 5996 May, [facility] [id number] [place] [address] 99027- 8800 Apr, [facility] [id number] [place] [address] 76269- 5445 Apr, [facility] [id number] [place] [address] 71282- 1798 Apr, Insomnia G47.00 ; Anemia D64.9 ; OCD (obsessive compulsive disorder) F42 ; Anxiety F41.9 ; Asthma J45.909 and Obesity (BMI 30.0-34.9) E66.9 [facility] [id number] [place] [address] 86649- 2613 Feb, [facility] [id number] [place] [address] 36412- 8367 Feb, Insomnia G47.00 [facility] [id number] [place] [address] 74425- 2162 Nov, [facility] [id number] [place] [address] 52371- 2648 Nov, [facility] [id number] [place] [address] 10573- 2532 Nov, [facility] [id number] [place] [address] 67357- 8967 Nov, OCD (obsessive compulsive disorder) F42 ; Anxiety F41.9 ; Insomnia G47.00 ; Anemia D64.9 and Asthma J45.909 [facility] [id number] [place] [address] 44702- 6823 Nov, [facility] [id number] [place] [address] 42954- 0008 Oct, [facility] [id number] [address]- 7519 Aug, OCD (obsessive compulsive disorder) F42 ; Chronic cellulitis L03.90 ; Anxiety F41.9 ; Insomnia G47.00 ; Anemia D64.9 and Asthma J45.909 [facility] [address] [address]- 6233 Aug, [facility] [id number] [place] [address] 42702- 3673 Jul, [facility] [id number] [place] [address] 81697- 2946 Jul, OCD (obsessive compulsive disorder) F42 ; Chronic cellulitis L03.90 ; Anxiety F41.9 ; Insomnia G47.00 and Anemia D64.9 [facility] [address] [place] [address] 37373- 0427 Dec, [facility] [id number] [place] [address] 15935- 6554 Dec, [facility] [id number] [place] [address] 10920- 7786 Aug, [facility] [id number] [place] [address] 15695- 1898 Aug, [facility] [address] [address]- 8649 14 Aug, 2014 [facility] [id number] [place] [address] 11137- 7340 Aug, [facility] [address] [address]- 6746 Aug, [facility] [id number] [place] [address] 31224- 3477 Aug, [facility] [address] [address]- 4560 Aug, [facility] [id number] [place] [address] 86225- 8325 Jul, [facility] [place] [facility] [address] [id number] [place] [address]- 5525 Jul, [facility] [place] [facility] [address] [id number] [place] [address]- 6840 Jul, [facility] [place] [facility] [address] [id number] [place] [address]- 5031 Jul, [facility] [place] [facility] [address] [id number] [place] [address]- 2094 Apr, [facility] [place] [facility] [address] [id number] [place] [address]- 8367 Apr, [facility] [place] [facility] [address] [id number] [place] [address]- 1863 Feb, [facility] [place] [facility] [address] [id number] [place] [address]- 5184 Feb, [facility] [place] [facility] [address] [id number] [place] [address]- 4355 Feb, [facility] [place] [facility] [address] [id number] [place] [address]- 9616 Feb, [facility] [place] [facility] [address] [id number] [place] [address]- 5017 January, [facility] [place] [facility] [address] [id number] [place] [address]- 8867 January, [facility] [place] [facility] [address] [id number] [place] [address]- 6237 January, [facility] [place] [facility] [address] [id number] [place] [address]- 7020 Dec, [facility] [place] [facility] [address] [id number] [place] [address]- 1287 Dec, [facility] [place] [facility] [address] [id number] [place] [address]- 6757 Dec, [facility] [place] [facility] [address] [id number] [place] [address]- 7328 Dec, [facility] [place] [facility] [address] [id number] [place] [address]- 6292 Nov, [facility] [place] [facility] [address] [id number] [place] [address]- 9690 Nov, [facility] [place] [facility] [address] [id number] [place] [address]- 0002 Nov, [facility] [place] [facility] [address] [id number] [place] [address]- 0438 Nov, [facility] [place] [facility] [address] [id number] [place] [address]- 2311 Nov, [facility] [place] [facility] [address] [facility] [id number] [place] [address]- 3994 Nov, [facility] [place] [facility] [address] [id number] [place] [address]- 6993 Oct, [facility] [place] [facility] [address] [id number] [place] [address]- 0585 Oct, [facility] [place] [facility] [address] [facility]] [id number] [place] [address]- 9874 Oct, [facility] [place] [facility] [address] [facility] [id number] [place] [address]- 6951 Oct, [facility] [place] [facility] [address] [facility] [id number] [place] [address]- 7638 Oct, [facility] [place] [facility] [address] [id number] [place] [address]- 8050 Oct, [facility] [place] [facility] [address] [id number] [place] [address]- 3366 Oct, [facility] [place] [facility] [address] [facility]] [id number] [place] [address]- 6072 Oct, [facility] [place] [facility] [address] [facility] [id number] [address]- 2736 Oct, [facility] [id number] [address]- 2926 Oct, [facility] [address] [facility]] [id number] 4533 Oct, [facility] [address] 8616 Oct, [facility] [address] [address]- 4452 Sep, [facility] [address] [address]- 2128 Sep, [facility] [address], [place] [address]- 6028 Sep, [facility] [address], [place] [address]- 6006 Sep, [facility] [address], [place] [address]- 1465 Aug, [facility] [address], [place] [address]- 2409 Aug, [facility] [address] [address]- 3381 Aug, [facility] [id number] [address]- 1121 Aug, [facility] [id number] [address]- 1639 Aug, [facility] [address] [place] [address]- 5060 Aug, [facility] [id number] [address]- 3330 Aug, IMMUNIZATIONS No Known Immunizations SOCIAL HISTORY Never Assessed REASON FOR VISIT Requests return call PLAN OF CARE VITAL SIGNS MEDICATIONS Medication Instructions Dosage Frequency Start Date End Date Duration Status Flagyl 500 mg Orally 2 times a day 1 tablet 12h Apr, Apr, 10 day(s) Active RESULTS No Results PROCEDURES No Known procedures INSTRUCTIONS MEDICATIONS ADMINISTERED No Known Medications MEDICAL (GENERAL) HISTORY Type Description Date Medical History asthma Medical History anxiety Medical History gastric bypass 2001 Medical History anemia Medical History sleep apnea treated with biPAP Surgical History gastric bypass 2001 Hospitalization History surgery Hospitalization History anemia Hospitalization History sepsis Hospitalization History Acute hypoxic resp distress--[facility] 07/28/16 Hospitalization History Denies any past psychiatric hospitalization
--- OUTSIDE RECORDS SUMMARY | 2018-10-07 10:20 | XMS REPORT ---
Author Author MIRTA MUNIZ [facility] Address [address] [place] [address] Care Team Providers Care Facial Operator Name Role Phone CRISTY MIRTA Unavailable PROBLEMS Type Condition ICD9-CM Code VTB07-IC Code Onset Dates Condition Status SNOMED Code Problem OCD (obsessive compulsive disorder) F42 Active 740593785 Problem Adjustment disorder with depressed mood F43.21 Active 26265071 Problem Chronic cellulitis L03.90 Active 871859124 Problem Eating disorder, unspecified F50.9 Active 36434133 Problem Insomnia G47.00 Active 892506141 Problem Body mass index (BMI) of 40.0-44.9 in adult Z68.41 Active 790576498 Problem Moderate persistent asthma without complication J45.40 Active 689013290 Problem Other obesity due to excess calories E66.09 Active 17302576220544 Problem ROBINA (generalized anxiety disorder) F41.1 Active 60302751 Problem Moderate episode of recurrent major depressive disorder F33.1 Active 252376990 Problem Obesity (BMI 30.0-34.9) E66.9 Active 241841564633079 Problem Asthma J45.909 Active 865148128 Problem Anxiety F41.9 Active 79725435 Problem Severe persistent asthma with acute exacerbation J45.51 Active 981177012 Problem BMI 45.0-49.9, adult Z68.42 Active 025219673 Problem Binge eating disorder F50.81 Active 970375777 Problem COPD exacerbation J44.1 Active 659326735 Problem Other chronic pain G89.29 Active 65071596 Problem Iron deficiency anemia, unspecified iron deficiency anemia type D50.9 Active 11557108 Problem SVETLANA treated with BiPAP G47.33 Active 53385350 Problem Reactive depression F32.9 Active 66490980 Problem Habitual self-excoriation F42.4 Active 802713885 Problem Psychophysiological insomnia F51.04 Active 911002932 Problem Asthma exacerbation J45.901 Active 563807186 Problem Seasonal allergic rhinitis due to pollen J30.1 Active 35040185 ALLERGIES Substance Reaction Event Type Date Status Morphine Sulfate itching Drug Allergy Apr, Active ENCOUNTERS Encounter Location Date Diagnosis [facility] [id number] [place] [address] 86822- 2340 Jul, [facility] [id number] [place] [address] 38324- 4082 Jul, [facility] [id number] [place] [address] 05674- 3128 Jun, [facility] [address] 42696- 9859 May, ROBINA (generalized anxiety disorder) F41.1 ; Moderate episode of recurrent major depressive disorder F33.1 ; Habitual self-excoriation F42.4 and Binge eating disorder F50.81 [facility] [place] [id number] [place] [address] 23973- 4900 May, [facility] [id number] [place] [address] 90703- 7664 Apr, ROBINA (generalized anxiety disorder) F41.1 ; Moderate episode of recurrent major depressive disorder F33.1 ; Binge eating disorder F50.81 ; Excoriation T14.8XXA and BMI 45.0-49.9, adult Z68.42 [facility] [id number] [place] [address] 25624- 2801 Apr, [facility] [id number] [place] [address] 82873- 4262 Apr, [facility] [id number] [place] [address] 69181- 9522 Apr, Diarrhea, unspecified type R19.7 [facility] [id number] [place] [address] 53503- 6798 Apr, Diarrhea, unspecified type R19.7 [facility] [id number] [place] [address] 40016- 4345 Apr, ROBINA (generalized anxiety disorder) F41.1 ; Moderate episode of recurrent major depressive disorder F33.1 ; Excoriation T14.8XXA ; Binge eating disorder F50.81 and BMI 45.0-49.9, adult Z68.42 [facility] [id number] [place] [address] 91834- 7716 Mar, [facility] [id number] [place] [address] 82453 -5660 Mar, Other specified bacterial agents as the cause of diseases classified elsewhere B96.89 ; Local infection of the skin and subcutaneous tissue, unspecified L08.9 ; Fever in other diseases R50.81 and BMI 50.0-59.9, adult Z68.43 [facility] [id number] [place] [address] 30067- 8602 Mar, Habitual self-excoriation F42.4 ; Anxiety F41.9 and Psychophysiological insomnia F51.04 [facility] [id number] [place] [address] 77640- 1528 Feb, [facility] [address] 61708- 5138 Feb, Anxiety F41.9 and Psychophysiological insomnia F51.04 [facility] [id number] [place] [address] 05514- 1584 January, Acute pain of left knee M25.562 and BMI 50.0-59.9, adult Z68.43 [facility] [id number] [place] [address] 83836- 3895 January, [facility] [address] 57869- 9875 January, COPD exacerbation J44.1 and Severe persistent asthma with acute exacerbation J45.51 [facility] [id number] [place] [address] 51682- 6494 January, Anxiety F41.9 and Psychophysiological insomnia F51.04 [facility] [place] [id number] [place] [address] 53443- 3086 January, COPD exacerbation J44.1 and Left medial knee pain M25.562 [facility] [id number] [place] [address] 12400- 2665 Dec, COPD with exacerbation J44.1 ; BMI 45.0-49.9, adult Z68.42 ; SVETLANA treated with BiPAP G47.33 and Psychophysiological insomnia F51.04 [facility] [id number] [place] [address] 59932- 4270 Dec, [facility] [place] [address] 97564- 9294 Dec, Acute pain of left knee M25.562 ; Unspecified fall, initial encounter W19.XXXA ; Unspecified place in unspecified non-institutional (private ) residence as the place of occurrence of the external cause Y92.009 ; BMI 45.0- 49.9, adult Z68.42 and Severe persistent asthma with acute exacerbation J45.51 [facility] [id number] [place] [address] 95723- 4313 Dec, Anxiety F41.9 and Psychophysiological insomnia F51.04 [facility] [id number] [place] [address] 21602- 1738 Nov, Psychophysiological insomnia F51.04 [facility] [id number] [place] [address] 19501- 0225 Oct, [facility] [place] [id number] [place] [address] 42572- 9696 Oct, Anxiety F41.9 [facility] [id number] [place] [address] 86071- 6372 Oct, [facility] [id number] [place] [address] 82701- 8252 Oct, Severe persistent asthma with acute exacerbation J45.51 ; Tobacco abuse Z72.0 and BMI 45.0-49.9, adult Z68.42 [facility] [id number] [place] [address] 08511- 9861 Oct, Psychophysiological insomnia F51.04 [facility] [id number] [place] [address] 32764- 6672 Sep, Anxiety F41.9 [facility] [address] 54423- 6493 Sep, Anxiety F41.9 and Habitual self-excoriation F42.4 [facility] [id number] [place] [address] 81626- 6999 Sep, Psychophysiological insomnia F51.04 [facility] [id number] [place] [address] 36730- 9153 Aug, Anxiety F41.9 [facility] [address] 43548- 7258 Aug, Asthma J45.909 [facility] [address] 78501- 9709 Aug, Anxiety F41.9 [facility] [id number] [place] [address] 24488 -1710 Aug, Acute bronchitis, unspecified organism J20.9 [facility] [id number] [place] [address] 58745- 2702 Aug, Psychophysiological insomnia F51.04 [facility] [id number] [place] [address] 31674- 9204 Jul, Therapeutic drug monitoring Z51.81 [place] [address] 35934- 1149 Jul, [facility] [id number] [place] [address] 36420- 7686 Jul, Habitual self-excoriation F42.4 [facility] [address] [place] [address]- 5732 08 Jul, 2017 [facility] [id number] [place] [address] 08262- 7606 Jul, [facility] [id number] [place] [address] 24082- 1755 Jun, SVETLANA treated with BiPAP G47.33 ; Moderate persistent asthma without complication J45.40 ; Anxiety F41.9 ; Other obesity due to excess calories E66.09 ; Body mass index (BMI) of 40.0-44.9 in adult Z68.41 ; Psychophysiological insomnia F51.04 and Encounter for immunization Z23 [facility] [address] 47203- 7594 Jun, [facility] [id number] [place] [address] 36367- 1166 Jun, Habitual self-excoriation F42.4 ; Adjustment disorder with depressed mood F43.21 ; Psychophysiological insomnia F51.04 and Eating disorder , unspecified F50.9 [facility] [id number] [place] [address] 89620- 0461 Jun, Visit for TB skin test Z11.1 [place] [id number] [place] [address] 68192- 6916 Jun, Habitual self-excoriation F42.4 and Psychophysiological insomnia F51.04 [place] [id number] [place] [address] 61612- 0696 Jun, Asthma J45.909 [place] [id number] [place] [address] 78474- 1667 May, Asthma J45.909 [facility] [address] 52577- 4620 May, [place] [id number] [place] [address] 78533- 4416 May, Habitual self-excoriation F42.4 and Psychophysiological insomnia F51.04 [facility] [id number] [place] [address] 57877- 1793 Apr, Habitual self-excoriation F42.4 ; Adjustment disorder with depressed mood F43.21 ; Psychophysiological insomnia F51.04 and Eating disorder , unspecified F50.9 [facility] [id number] [place] [address] 66604- 1860 Apr, 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 [place] [id number] [place] [address] 31804- 1827 Mar, [facility] [address] 20552- 2933 Mar, [place] [id number] [place] [address] 03496- 8342 Mar, Anxiety F41.9 [place] [id number] [place] [address] 62357- 9959 Feb, Asthma J45.909 [facility] [id number] [place] [address] 13089- 4033 Feb, [place] [id number] [place] [address] 63624- 6721 Feb, Anxiety F41.9 [place] [id number] [place] [address] 41172- 5694 Feb, Asthma exacerbation J45.901 and Seasonal allergic rhinitis due to pollen J30.1 [facility] [id number] [place] [address] 87998- 0228 January, [place] [id number] [place] [address] 54292- 5226 January, Anxiety F41.9 [facility] [id number] [place] [address] 61474- 7864 Dec, Therapeutic drug monitoring Z51.81 [place] [id number] [place] [address] 35762- 1057 Dec, Anxiety F41.9 and Asthma J45.909 [place] [address] 03745- 9170 Nov, Asthma J45.909 [place] [id number] [place] [address] 29846- 1507 Nov, Anxiety F41.9 [place] [address] 50952- 1660 Oct, Asthma exacerbation J45.901 ; Pain in right knee M25.561 ; Pain in left knee M25.562 and Open wound of eyebrow, left, subsequent encounter S01.102D [facility] [id number] [place] [address] 65486- 0338 16 Oct, 2016 [facility] [id number] [place] [address] 67471 -9313 Oct, Other viral agents as the cause of diseases classified elsewhere B97.89 and Acute upper respiratory infection, unspecified J06.9 [place] [id number] [place] [address] 84940- 3751 Oct, [facility] [id number] [place] [address] 67139- 9392 Oct, [place] [id number] [place] [address] 71010- 4794 Oct, Anxiety F41.9 [facility] [id number] [place] [address] 78801- 8408 Sep, [place] [address] 13108- 9111 Sep, SVETLANA treated with BiPAP G47.33 and Asthma J45.909 [place] [id number] [place] [address] 03633- 4380 Sep, SVETLANA treated with BiPAP G47.33 ; Obesity (BMI 30.0-34.9) E66.9 and Reactive depression F32.9 [place] [address] 24643- 0605 Sep, Anxiety F41.9 [place] [address] 17765- 3288 Aug, [place] [address] 88860- 7251 Aug, Insomnia G47.00 [place] [address] 77168- 1622 Aug, [place] [address] 38357- 6688 Aug, SVETLANA treated with BiPAP G47.33 and On supplemental oxygen therapy Z99.81 [place] [address] 98062- 9377 Jul, On supplemental oxygen therapy Z99.81 ; Obesity (BMI 30.0- 34.9) E66.9 and SVETLANA treated with BiPAP G47.33 [place] [address] 83332- 6878 Jul, Mucus plugging of bronchi J98.09 ; On supplemental oxygen therapy Z99.81 ; Acute midline thoracic back pain M54.6 and SVETLANA treated with BiPAP G47.33 [place] [address] 07797- 7556 16 Jul, 2016 [place] [address] 94577- 2955 15 Jul, 2016 [place] [address] 38217- 0792 Jul, [facility] [address] [address] 3090 May, [facility] [id number] [place] [address] 54724- 8708 May, [facility] [address] [address]- 3251 Apr, [facility] [id number] [place] [address] 86556- 9247 Apr, [facility] [address] [place] [address] 20371- 8554 Apr, Insomnia G47.00 ; Anemia D64.9 ; OCD (obsessive compulsive disorder) F42 ; Anxiety F41.9 ; Asthma J45.909 and Obesity (BMI 30.0-34.9) E66.9 [facility] [id number] [place] [address] 96744- 9760 Feb, [facility] [id number] [place] [address] 55753- 3932 Feb, Insomnia G47.00 [facility] [id number] [place] [address] 53094- 6273 Nov, [facility] [address], [place] [address]- 3167 Nov, [facility] [id number] [place] [address] 66375- 1502 15 Nov, 2015 [facility] [address] [place] [address] 18041- 5312 14 Nov, 2015 OCD (obsessive compulsive disorder) F42 ; Anxiety F41.9 ; Insomnia G47.00 ; Anemia D64.[address] [facility] [address] [address]- 1489 Nov, [facility] [id number] [place] [address] 00062- 4552 Oct, [facility] [address] [address]- 7920 Aug, OCD (obsessive compulsive disorder) F42 ; Chronic cellulitis L03.90 ; Anxiety F41.9 ; Insomnia G47.00 ; Anemia D64.[address] [facility] [id number] [address]- 4496 Aug, [facility] [id number] [place] [address] 78427- 2484 Jul, [facility] [id number] [place] [address] 88446- 8564 Jul, OCD (obsessive compulsive disorder) F42 ; Chronic cellulitis L03.90 ; Anxiety F41.9 ; Insomnia G47.[address] [facility] [id number] [place] [address] 82425- 9262 Dec, [facility] [address] [place] [address] 35388- 6411 Dec, [facility] [id number] [place] [address] 30538- 1464 Aug, [facility] [address] [address]- 5772 Aug, [facility] [address], [place] [address]- 5274 Aug, [facility] [address], [place] [address]- 6447 Aug, [facility] [id number] [place] [address] 32464- 7046 Aug, [facility] [address], [place] [address]- 9574 Aug, [facility] [address] [address]- 0067 Aug, [facility] [place] [facility] [address] [id number] [place] [address]- 5235 Jul, [facility] [place] [facility] [address] [id number] [place] [address]- 6607 Jul, [facility] [place] [facility] [address] [id number] [place] [address]- 0630 Jul, [facility] [place] [facility] [address] [id number] [place] [address]- 4558 Jul, [facility] [place] [facility] [address] [id number] [place] [address]- 7503 Apr, [facility] [place] [facility] [address] [id number] [place] [address]- 1953 Apr, [facility] [place] [facility] [address] [id number] [place] [address]- 7050 Feb, [facility] [place] [facility] [address] [id number] [place] [address]- 3453 Feb, [facility] [place] [facility] [address] [id number] [place] [address]- 7520 Feb, [facility] [place] [facility] [address] [id number] [place] [address]- 0851 Feb, [facility] [place] [facility] [address] [id number] [place] [address]- 5963 January, [facility] [place] [facility] [address] [id number] [place] [address]- 8717 January, [facility] [place] [facility] [address] [id number] [place] [address]- 4225 January, [facility] [place] [facility] [address] [id number] [place] [address]- 0389 Dec, [facility] [place] [facility] [address] [id number] [place] [address]- 9570 Dec, [facility] [place] [facility] [address] [id number] [place] [address]- 1178 Dec, [facility] [place] [facility] [address] [id number] [place] [address]- 3632 Dec, [facility] [place] [facility] [address] [id number] [place] [address]- 2844 Nov, [facility] [place] [facility] [address] [facility] [id number] [place] [address]- 7432 Nov, [facility] [place] [facility] [address] [id number] [place] [address]- 5943 Nov, [facility] [place] [facility] [address] [id number] [place] [address]- 9707 Nov, [facility] [place] [facility] [address] [facility] [id number] [place] [address]- 1991 Nov, [facility] [place] [facility] [address] [facility] [id number] [place] [address]- 2302 Nov, [facility] [place] [facility] [address] [id number] [place] [address]- 1162 Oct, [facility] [place] [facility] [address] [id number] [place] [address]- 1474 Oct, [facility] [place] [facility] [address] [facility] [id number] [place] [address]- 2018 Oct, [facility] [place] [facility] [address] [id number] [place] [address]- 5828 Oct, [facility] [place] [facility] [address] [id number] [place] [address]- 2301 Oct, [facility] [place] [facility] [address] [id number] [place] [address]- 6191 Oct, [facility] [place] [facility] [address] [id number] [place] [address]- 3159 Oct, [facility] [place] [facility] [address] [facility] [id number] [address]- 5846 Oct, [facility] [address] [id number] [place] [address]- 4[address] Oct, [facility] [address] [id number] [place] [address] Oct, [facility] [address] [facility] [id number] [place] [address] Oct, [facility] [address] [facility] [id number] [place] [address] Oct, [facility] [address] [id number] [place] [address] Sep, [facility] [address] [facility] [id number] [place] [address] Sep, [facility] [address] [facility] [id number] [place] [address] Sep, [facility] [address] [facility] [id number] [place] [address] Sep, [facility] [address] [facility] [id number] [place] [address] Aug, [facility] [address] [facility] [id number] [place] [address] Aug, [facility] [address] [facility] [id number] [place] [address] Aug, [facility] [address] [facility] [id number] [address] Aug, [facility] [address] [facility] [id number] [place] [address] Aug, [facility] [address] [facility] [id number], [place] [address] Aug, [facility] [address] [facility] [id number][place] [address] Aug, IMMUNIZATIONS No Known Immunizations SOCIAL HISTORY Never Assessed REASON FOR VISIT Rachana AUGUST PLAN OF CARE Activity Details Follow Up 4 Weeks Reason: VITAL SIGNS Height 65 in 2018-04-22 Weight 298.4 lbs 2018-04-22 Heart Rate 99 bpm 2018-04-22 Respiratory Rate 20 2018-04-22 BMI 49.65 kg/m2 2018-04-22 Blood pressure systolic 112 mmHg 2018-04-22 Blood pressure diastolic 78 mmHg 2018-04-22 MEDICATIONS Medication Instructions Dosage Frequency Start Date End Date Duration Status Celexa 40 MG Orally daily 1 tablet 24h 30 days Active Ativan 1 MG Orally twice a day as needed 1 tablet Active Ventolin HFA 90 MCG/ACT Inhalation every 4 hrs 2 puffs as needed 4h Active Wellbutrin SR 100 MG Orally twice a day 1 tablet 12h Apr, 30 days Active Zolpidem Tartrate 10 mg Orally at bedtime as needed 1 tablet Active Meloxicam 15 MG Orally Once a day 1 tablet 24h Apr, 30 days Active Symbicort 160-4.5 mcg/act [...] History sepsis Hospitalization History Acute hypoxic resp distress--[facility] 07/28/16 Hospitalization History Denies any past psychiatric hospitalization
--- OUTSIDE RECORDS SUMMARY | 2018-10-07 10:21 | XMS REPORT ---
Author Author GISSELLE PHILIP [facility] Address [address] [place] [address] Care Team Providers Care Cap Sizer Name Role Phone GISSELLELAKISHA CALABRESEHANY Unavailable PROBLEMS Type Condition ICD9-CM Code DUR13-RD Code Onset Dates Condition Status SNOMED Code Problem OCD (obsessive compulsive disorder) F42 Active 898416372 Problem Adjustment disorder with depressed mood F43.21 Active 18301154 Problem Chronic cellulitis L03.90 Active 809620380 Problem Eating disorder, unspecified F50.9 Active 47816012 Problem Insomnia G47.00 Active 674896241 Problem Body mass index (BMI) of 40.0-44.9 in adult Z68.41 Active 894713821 Problem Moderate persistent asthma without complication J45.40 Active 099190967 Problem Other obesity due to excess calories E66.09 Active 21450320329132 Problem ROBINA (generalized anxiety disorder) F41.1 Active 65742087 Problem Moderate episode of recurrent major depressive disorder F33.1 Active 791349827 Problem Obesity (BMI 30.0-34.9) E66.9 Active 568096121211965 Problem Asthma J45.909 Active 694450095 Problem Anxiety F41.9 Active 68479427 Problem Severe persistent asthma with acute exacerbation J45.51 Active 346032259 Problem BMI 45.0-49.9, adult Z68.42 Active 516397727 Problem Binge eating disorder F50.81 Active 344134981 Problem COPD exacerbation J44.1 Active 562019562 Problem Other chronic pain G89.29 Active 74386976 Problem Iron deficiency anemia, unspecified iron deficiency anemia type D50.9 Active 69972425 Problem SVETLANA treated with BiPAP G47.33 Active 11614525 Problem Reactive depression F32.9 Active 35452419 Problem Habitual self-excoriation F42.4 Active 541933623 Problem Psychophysiological insomnia F51.04 Active 791724978 Problem Asthma exacerbation J45.901 Active 977815152 Problem Seasonal allergic rhinitis due to pollen J30.1 Active 53059040 ALLERGIES No Information ENCOUNTERS Encounter Location Date Diagnosis [place] [id number] [place] [address] 17436- 5462 Jul, [place] [id number] [place] [address] 45621- 3582 May, [place] [id number] [place] [address] 51214- 1039 Apr, ROBINA (generalized anxiety disorder) F41.1 ; Moderate episode of recurrent major depressive disorder F33.1 ; Binge eating disorder F50.81 ; Excoriation T14.8XXA and BMI 45.0-49.9, adult Z68.42 [place] [id number] [place] [address] 04166- 9626 Apr, [place] [id number] [place] [address] 15853- 0044 Apr, [facility] [id number] [place] [address] 09525- 1617 Apr, Diarrhea, unspecified type R19.7 [place] [id number] [place] [address] 49939- 6265 Apr, Diarrhea, unspecified type R19.7 [place] [id number] [place] [address] 49815- 6720 Apr, ROBINA (generalized anxiety disorder) F41.1 ; Moderate episode of recurrent major depressive disorder F33.1 ; Excoriation T14.8XXA ; Binge eating disorder F50.81 and BMI 45.0-49.9, adult Z68.42 [place] [id number] [place] [address] 75333- 9221 Mar, [facility] [id number] [address] Mar, Other specified bacterial agents as the cause of diseases classified elsewhere B96.89 ; Local infection of the skin and subcutaneous tissue, unspecified L08.9 ; Fever in other diseases R50.81 and BMI 50.0-59.9, adult Z68.43 [place] [address] 23829- 5691 Mar, Habitual self-excoriation F42.4 ; Anxiety F41.9 and Psychophysiological insomnia F51.04 [place] [address] 22820- 2170 Feb, [place] [address] 53663- 2276 Feb, Anxiety F41.9 and Psychophysiological insomnia F51.04 [place] [address] 92907- 1659 January, Acute pain of left knee M25.562 and BMI 50.0-59.9, adult Z68.43 [place] [address] 43013- 2430 January, [place] [address] 21464- 7502 January, COPD exacerbation J44.1 and Severe persistent asthma with acute exacerbation J45.51 [place] [address] 44147- 8681 January, Anxiety F41.9 and Psychophysiological insomnia F51.04 [place] [address] 98096- 9970 January, COPD exacerbation J44.1 and Left medial knee pain M25.562 [place] [address] 60499- 3580 Dec, COPD with exacerbation J44.1 ; BMI 45.0-49.9, adult Z68.42 ; SVETLANA treated with BiPAP G47.33 and Psychophysiological insomnia F51.04 [place] [address] 80670- 7562 Dec, [place] [id number] [place] [address] 71609- 8195 Dec, Acute pain of left knee M25.562 ; Unspecified fall, initial encounter W19.XXXA ; Unspecified place in unspecified non-institutional (private ) residence as the place of occurrence of the external cause Y92.009 ; BMI 45.0- 49.9, adult Z68.42 and Severe persistent asthma with acute exacerbation J45.51 [place] [address] 89125- 4427 Dec, Anxiety F41.9 and Psychophysiological insomnia F51.04 [place] [address] 23253- 2822 Nov, Psychophysiological insomnia F51.04 [place] [address] 13373- 7531 Oct, [place] [address] 56523- 4601 Oct, Anxiety F41.9 [place] [address] 07255- 2625 Oct, [place] [id number] [place] [address] 30381- 5288 Oct, Severe persistent asthma with acute exacerbation J45.51 ; Tobacco abuse Z72.0 and BMI 45.0-49.9, adult Z68.42 [place] [address] 08895- 7293 Oct, Psychophysiological insomnia F51.04 [place] [address] 36218- 6952 Sep, Anxiety F41.9 [place] [id number] [place] [address] 37493- 9493 Sep, Anxiety F41.9 and Habitual self-excoriation F42.4 [place] [id number] [place] [address] 74861- 8439 Sep, Psychophysiological insomnia F51.04 [place] [address] 06953- 1885 Aug, Anxiety F41.9 [facility] [address] 37766- 8079 Aug, Asthma J45.909 [place] [address] 57995- 7517 Aug, Anxiety F41.9 [facility] [address] 55958 -1160 Aug, Acute bronchitis, unspecified organism J20.9 [place] [address] 77307- 2887 Aug, Psychophysiological insomnia F51.04 [place] [address] 82979- 9284 Jul, Therapeutic drug monitoring Z51.81 [place] [address] 79932- 7121 Jul, [place] [address] 98388- 8486 Jul, Habitual self-excoriation F42.4 [place] [address] 62430- 6193 08 Jul, 2017 [place] [address] 88545- 4831 Jul, [place] [address] 74049- 1284 Jun, SVETLANA treated with BiPAP G47.33 ; Moderate persistent asthma without complication J45.40 ; Anxiety F41.9 ; Other obesity due to excess calories E66.09 ; Body mass index (BMI) of 40.0-44.9 in adult Z68.41 ; Psychophysiological insomnia F51.04 and Encounter for immunization Z23 [place] [id number] [place] [address] 66128- 8946 Jun, [place] [address] 95686- 5424 Jun, Habitual self-excoriation F42.4 ; Adjustment disorder with depressed mood F43.21 ; Psychophysiological insomnia F51.04 and Eating disorder , unspecified F50.9 [place] [address] 66216- 0174 Jun, Visit for TB skin test Z11.1 [place] [address] 21355- 0282 Jun, Habitual self-excoriation F42.4 and Psychophysiological insomnia F51.04 [place] [address] 72043- 1978 Jun, Asthma J45.909 [place] [id number] [place] [address] 62627- 5493 May, Asthma J45.909 [place] [address] 44836- 1643 May, [place] [id number] [place] [address] 93368- 6297 May, Habitual self-excoriation F42.4 and Psychophysiological insomnia F51.04 [place] [id number] [place] [address] 59960- 5283 Apr, Habitual self-excoriation F42.4 ; Adjustment disorder with depressed mood F43.21 ; Psychophysiological insomnia F51.04 and Eating disorder , unspecified F50.9 [place] [id number] [place] [address] 51754- 0394 Apr, [place] [id number] [place] [address] 75167- 4664 Apr, Habitual self-excoriation F42.4 ; Adjustment disorder with depressed mood F43.21 ; Psychophysiological insomnia F51.04 and 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 [place] [id number] [place] [address] 47034- 8250 Mar, [facility] [id number] [place] [address] 43011- 1092 Mar, [place] [address] 04830- 9277 Mar, Anxiety F41.9 [place] [id number] [place] [address] 07764- 1773 Feb, Asthma J45.909 [place] [address] 22455- 0493 Feb, [place] [id number] [place] [address] 13892- 7568 Feb, Anxiety F41.9 [place] [id number] [place] [address] 07474- 1439 Feb, Asthma exacerbation J45.901 and Seasonal allergic rhinitis due to pollen J30.1 [place] [id number] [place] [address] 26067- 8382 January, [place] [id number] [place] [address] 41430- 9900 January, Anxiety F41.9 [place] [id number] [place] [address] 14811- 0780 Dec, Therapeutic drug monitoring Z51.81 [place] [id number] [place] [address] 59509- 5701 Dec, Anxiety F41.9 and Asthma J45.909 [place] [address] [place] [address] 50242- 8634 Nov, Asthma J45.909 [place] [address] 81325- 5721 Nov, Anxiety F41.9 [place] [address] [place] [address] 83315- 8922 Oct, Asthma exacerbation J45.901 ; Pain in right knee M25.561 ; Pain in left knee M25.562 and Open wound of eyebrow, left, subsequent encounter S01.102D [place] [address] [place] [address] 94424- 9408 16 Oct, 2016 [facility] [id number] [place] [address] 82486 -0298 11 Oct, 2016 Other viral agents as the cause of diseases classified elsewhere B97.89 and Acute upper respiratory infection, unspecified J06.9 [place] [id number] [place] [address] 84024- 8250 Oct, [place] [address] 69699- 3096 Oct, [place] [id number] [place] [address] 47822- 6656 Oct, Anxiety F41.9 [place] [address] 15353- 4265 Sep, [place] [id number] [place] [address] 65619- 6569 Sep, SVETLANA treated with BiPAP G47.33 and Asthma J45.909 [place] [id number] [place] [address] 56104- 1931 Sep, SVETLANA treated with BiPAP G47.33 ; Obesity (BMI 30.0-34.9) E66.9 and Reactive depression F32.9 [place] [id number] [place] [address] 14977- 9478 Sep, Anxiety F41.9 [place] [address] 40112- 8763 Aug, [facility] [id number] [place] [address] 51965- 4841 Aug, Insomnia G47.00 [facility] [id number] [place] [address] 20576- 8153 Aug, [facility] [id number] [place] [address] 65658- 9309 Aug, SVETLANA treated with BiPAP G47.33 and On supplemental oxygen therapy Z99.81 [facility] [id number] [place] [address] 13085- 0539 Jul, On supplemental oxygen therapy Z99.81 ; Obesity (BMI 30.0- 34.9) E66.9 and SVETLANA treated with BiPAP G47.33 [facility] [address] [place] [address] 95380- 4967 17 Jul, 2016 Mucus plugging of bronchi J98.09 ; On supplemental oxygen therapy Z99.81 ; Acute midline thoracic back pain M54.6 and SVETLANA treated with BiPAP G47.33 [facility] [id number] [place] [address] 88346- 7082 16 Jul, 2016 [facility] [id number] [place] [address] 28712- 1865 15 Jul, 2016 [facility] [id number] [place] [address] 92167- 7459 Jul, [facility] [id number] [place] [address] 29334- 7290 May, [facility] [id number] [place] [address] 43077- 8508 May, [facility] [id number] [place] [address] 93538- 4513 Apr, [facility] [id number] [place] [address] 66812- 0617 Apr, [facility] [address] [place] [address] 26693- 7362 Apr, Insomnia G47.00 ; Anemia D64.9 ; OCD (obsessive compulsive disorder) F42 ; Anxiety F41.9 ; Asthma J45.909 and Obesity (BMI 30.0-34.9) E66.9 [facility] [id number] [place] [address] 21819- 9296 Feb, [facility] [address] 66531- 1372 Feb, Insomnia G47.00 [place] [address] 06382- 2796 Nov, [place] [id number] [place] [address] 68745- 3436 Nov, [facility] [id number] [place] [address] 58360- 8378 Nov, [facility] [address] 77238- 0988 Nov, OCD (obsessive compulsive disorder) F42 ; Anxiety F41.9 ; Insomnia G47.00 ; Anemia D64.9 and Asthma J45.909 [place] [id number] [place] [address] 50067- 5415 Nov, [place] [address] [place] [address] 40847- 3740 Oct, [facility] [id number] [place] [address] 53947- 3240 Aug, OCD (obsessive compulsive disorder) F42 ; Chronic cellulitis L03.90 ; Anxiety F41.9 ; Insomnia G47.00 ; Anemia D64.9 and Asthma J45.909 [facility] [address] [place] [address] 89658- 9542 Aug, [facility] [address] [place] [address] 86112- 8908 Jul, [place] [address] [address]- 4375 Jul, OCD (obsessive compulsive disorder) F42 ; Chronic cellulitis L03.90 ; Anxiety F41.9 ; Insomnia G47.00 and Anemia D64.9 [facility] [address] [place] [address]- 3251 14 Dec, 2014 [facility] [id number] [place] [address], [place] [address]- 3957 Dec, [facility] [address] [place] [address]- 8912 Aug, [facility] [id number] [place] [address], [place] [address]- 5394 Aug, [facility] [address] [place] [address]- 8996 Aug, [facility] [id number] [place] [address], [place] [address]- 3535 Aug, [facility] [address] [place] [address]- 6687 Aug, [facility] [address] [place] [address]- 0139 Aug, [facility] [address] [address]- 6900 Aug, [facility] [id number] [address]- 0935 Jul, [facility] [address] [address]- 2381 Jul, [facility] [address] [address]- 1392 Jul, [facility] [id number] [address]- 1081 Jul, [facility] [address] [address]- 1361 Apr, [facility] [place] [facility] [address] [id number] [place] [address]- 7455 Apr, [facility] [place] [facility] [address] [id number] [place] [address]- 9687 Feb, [facility] [place] [facility] [address] [id number] [place] [address]- 6192 Feb, [facility] [place] [facility] [address] [id number] [place] [address]- 2446 Feb, [facility] [place] [facility] [address] [id number] [place] [address]- 0324 Feb, [facility] [place] [facility] [address] [id number] [place] [address]- 4575 January, [facility] [place] [facility] [address] [id number] [place] [address]- 1017 January, [facility] [place] [facility] [address] [id number] [place] [address]- 0371 January, [facility] [place] [facility] [address] [id number] [place] [address]- 8331 Dec, [facility] [place] [facility] [address] [id number] [place] [address]- 6362 Dec, [facility] [place] [facility] [address] [id number] [place] [address]- 7968 Dec, [facility] [place] [facility] [address] [id number] [place] [address]- 8042 Dec, [facility] [place] [facility] [address] [id number] [place] [address]- 5144 Nov, [facility] [place] [facility] [address] [id number] [place] [address]- 5750 Nov, [facility] [place] [facility] [address] [id number] [place] [address]- 9644 Nov, [facility] [place] [facility] [address] [id number] [place] [address]- 9352 Nov, [facility] [place] [facility] [address] [id number] [place] [address]- 4759 Nov, [facility] [place] [facility] [address] [id number] [place] [address]- 4282 Nov, [facility] [place] [facility] [address] [id number] [place] [address]- 5148 Oct, [facility] [place] [facility] [address] [id number] [place] [address]- 2336 Oct, [facility] [place] [facility] [address] [id number] [place] [address]- 6536 Oct, [facility] [place] [facility] [address] [id number] [place] [address]- 6873 Oct, [facility] [place] [facility] [address] [facility] [id number] [place] [address]- 1189 Oct, [facility] [place] [facility] [address] [id number] [place] [address]- 4467 Oct, [facility] [place] [facility] [address] [facility] [id number] [place] [address]- 4615 Oct, [facility] [place] [facility] [address] [facility] [id number] [place] [address]- 4170 Oct, [facility] [place] [facility] [address] [facility] [id number] [place] [address]- 1084 Oct, [facility] [place] [facility] [address] [id number] [place] [address]- 1729 Oct, [facility] [place] [facility] [address] [id number] [place] [address]- 3881 Oct, [facility] [place] [facility] [address] [id number] [place] [address]- 4129 Oct, [facility] [place] [facility] [address] [facility] [id number] [place] [address]- 8313 Sep, [facility] [address] [facility] [id number] [place] [address]- 8429 Sep, [facility] [address] [facility] [id number] [place] 0544 Sep, [facility] [address] [facility] [id number] [address]- 3932 Sep, [facility] [address] [facility] [id number] [place] [address]- 2615 Aug, [facility] [address] [facility] [id number] [place] 1398 Aug, [facility] [address] [facility] [id number] [place] 9728 Aug, [facility] [address] [address]- 5176 Aug, [facility] [id number] [address]- 8213 Aug, [facility] [id number] [address]- 3105 Aug, [facility] [id number] [address] Aug, IMMUNIZATIONS No Known Immunizations SOCIAL HISTORY Never Assessed REASON FOR VISIT Controlled med refill PLAN OF CARE VITAL SIGNS MEDICATIONS Medication Instructions Dosage Frequency Start Date End Date Duration Status Zolpidem Tartrate 10 mg Orally at bedtime as needed 1 tablet Active Celexa 20 mg Orally BID 1 tab in AM and 1/2 tab in PM 12h 30 days Active Ativan 1 MG [...] History sepsis Hospitalization History Acute hypoxic resp distress--[facility] 07/[facility]/16 Hospitalization History Denies any past psychiatric hospitalization
--- OUTSIDE RECORDS SUMMARY | 2018-10-07 10:21 | XMS REPORT ---
Author Author GENIA RANGEL Organization [facility] Address [address] [place] [address] Care Team Providers Care [employer] Name Role Phone GENIA RANGEL Unavailable PROBLEMS Type Condition ICD9-CM Code KMC71-NQ Code Onset Dates Condition Status SNOMED Code Problem OCD (obsessive compulsive disorder) F42 Active 084471706 Problem Adjustment disorder with depressed mood F43.21 Active 15833103 Problem Chronic cellulitis L03.90 Active 596636557 Problem Eating disorder, unspecified F50.9 Active 96668414 Problem Insomnia G47.00 Active 237945993 Problem Body mass index (BMI) of 40.0-44.9 in adult Z68.41 Active 709249958 Problem Moderate persistent asthma without complication J45.40 Active 437500674 Problem Other obesity due to excess calories E66.09 Active 02788822366406 Problem ROBINA (generalized anxiety disorder) F41.1 Active 02370933 Problem Moderate episode of recurrent major depressive disorder F33.1 Active 270129850 Problem Obesity (BMI 30.0-34.9) E66.9 Active 540250765702557 Problem Asthma J45.909 Active 887227142 Problem Anxiety F41.9 Active 96316588 Problem Severe persistent asthma with acute exacerbation J45.51 Active 280505533 Problem BMI 45.0-49.9, adult Z68.42 Active 614758346 Problem Binge eating disorder F50.81 Active 767240331 Problem COPD exacerbation J44.1 Active 023815278 Problem Other chronic pain G89.29 Active 43108425 Problem Iron deficiency anemia, unspecified iron deficiency anemia type D50.9 Active 71248343 Problem SVETLANA treated with BiPAP G47.33 Active 57453526 Problem Reactive depression F32.9 Active 90389910 Problem Habitual self-excoriation F42.4 Active 286301576 Problem Psychophysiological insomnia F51.04 Active 458358629 Problem Asthma exacerbation J45.901 Active 465210316 Problem Seasonal allergic rhinitis due to pollen J30.1 Active 08058309 ALLERGIES Substance Reaction Event Type Date Status Morphine Sulfate itching Drug Allergy Mar, Active ENCOUNTERS Encounter Location Date Diagnosis [facility] [id number] [place] [address] 78264- 2553 Jul, [facility] [id number] [place] [address] 34135- 7520 May, [facility] [address] 65381- 1555 Apr, ROBINA (generalized anxiety disorder) F41.1 ; Moderate episode of recurrent major depressive disorder F33.1 ; Binge eating disorder F50.81 ; Excoriation T14.8XXA and BMI 45.0-49.9, adult Z68.42 [facility] [id number] [place] [address] 64062- 9691 Apr, [facility] [id number] [place] [address] 82329- 4153 Apr, [facility] [id number] [place] [address] 80224- 2609 Apr, Diarrhea, unspecified type R19.7 [facility] [id number] [place] [address] 69490- 0634 Apr, Diarrhea, unspecified type R19.7 [facility] [id number] [place] [address] 11312- 6179 Apr, ROBINA (generalized anxiety disorder) F41.1 ; Moderate episode of recurrent major depressive disorder F33.1 ; Excoriation T14.8XXA ; Binge eating disorder F50.81 and BMI 45.0-49.9, adult Z68.42 [facility] [id number] [place] [address] 52369- 9269 Mar, [facility] [id number] [place] [address] 00512 -9037 22 Chris, 2018 Other specified bacterial agents as the cause of diseases classified elsewhere B96.89 ; Local infection of the skin and subcutaneous tissue, unspecified L08.9 ; Fever in other diseases R50.81 and BMI 50.0-59.9, adult Z68.43 [facility] [id number] [place] [address] 54958- 6885 Mar, Habitual self-excoriation F42.4 ; Anxiety F41.9 and Psychophysiological insomnia F51.04 [facility] [id number] [place] [address] 96751- 2553 Feb, [facility] [id number] [place] [address] 86024- 8870 Feb, Anxiety F41.9 and Psychophysiological insomnia F51.04 [facility] [id number] [place] [address] 19563- 0410 January, Acute pain of left knee M25.562 and BMI 50.0-59.9, adult Z68.43 [facility] [id number] [place] [address] 81576- 2364 January, [facility] [address] 20090- 9539 January, COPD exacerbation J44.1 and Severe persistent asthma with acute exacerbation J45.51 [facility] [id number] [place] [address] 06426- 4704 January, Anxiety F41.9 and Psychophysiological insomnia F51.04 [facility] [id number] [place] [address] 62370- 3798 January, COPD exacerbation J44.1 and Left medial knee pain M25.562 [facility] [address] 58999- 5287 Dec, COPD with exacerbation J44.1 ; BMI 45.0-49.9, adult Z68.42 ; SVETLANA treated with BiPAP G47.33 and Psychophysiological insomnia F51.04 [facility] [address] [place] [address]- 4194 Dec, [facility] [address] 94560- 4761 Dec, Acute pain of left knee M25.562 ; Unspecified fall, initial encounter W19.XXXA ; Unspecified place in unspecified non-institutional (private ) residence as the place of occurrence of the external cause Y92.009 ; BMI 45.0- 49.9, adult Z68.42 and Severe persistent asthma with acute exacerbation J45.51 [facility] [address] 57006- 8910 Dec, Anxiety F41.9 and Psychophysiological insomnia F51.04 [facility] [address] 88841- 9084 Nov, Psychophysiological insomnia F51.04 [facility] [address] 63988- 4239 Oct, [facility] [address] 31960- 3848 Oct, Anxiety F41.9 [facility] [address] 13591- 5916 Oct, [facility] [id number] [place] [address] 60282- 5614 Oct, Severe persistent asthma with acute exacerbation J45.51 ; Tobacco abuse Z72.0 and BMI 45.0-49.9, adult Z68.42 [facility] [id number] [place] [address] 61708- 8858 Oct, Psychophysiological insomnia F51.04 [facility] [address] 41062- 6790 Sep, Anxiety F41.9 [facility] [place] [address] 68871- 2813 Sep, Anxiety F41.9 and Habitual self-excoriation F42.4 [facility] [id number] [place] [address] 24756- 0028 Sep, Psychophysiological insomnia F51.04 [facility] [id number] [place] [address] 79999- 1400 Aug, Anxiety F41.9 [facility] [id number] [place] [address] 33578- 2495 Aug, Asthma J45.909 [facility] [id number] [place] [address] 63519- 5750 Aug, Anxiety F41.9 [facility] [address] 04857 -7620 Aug, Acute bronchitis, unspecified organism J20.9 [facility] [address] 25996- 8565 Aug, Psychophysiological insomnia F51.04 [facility] [id number] [place] [address] 64466- 0716 Jul, Therapeutic drug monitoring Z51.81 [facility] [address] 19744- 4441 Jul, [facility] [place] [id number] [place] [address] 11851- 5161 Jul, Habitual self-excoriation F42.4 [facility] [place] [id number] [place] [address] 51832- 2905 08 Jul, 2017 [facility] [id number] [place] [address] 23340- 0916 Jul, [facility] [address] 94528- 6807 Jun, SVETLANA treated with BiPAP G47.33 ; Moderate persistent asthma without complication J45.40 ; Anxiety F41.9 ; Other obesity due to excess calories E66.09 ; Body mass index (BMI) of 40.0-44.9 in adult Z68.41 ; Psychophysiological insomnia F51.04 and Encounter for immunization Z23 [facility] [id number] [place] [address] 80072- 3137 Jun, [facility] [address] 44996- 2127 Jun, Habitual self-excoriation F42.4 ; Adjustment disorder with depressed mood F43.21 ; Psychophysiological insomnia F51.04 and Eating disorder , unspecified F50.9 [facility] [address] 38701- 2870 Jun, Visit for TB skin test Z11.1 [facility] [address] 45118- 2659 Jun, Habitual self-excoriation F42.4 and Psychophysiological insomnia F51.04 [facility] [address] 80784- 2164 Jun, Asthma J45.909 [facility] [address] 68628- 5271 May, Asthma J45.909 [facility] [address] 49654- 2272 May, [facility] [address] 24035- 2360 May, Habitual self-excoriation F42.4 and Psychophysiological insomnia F51.04 [facility] [id number] [place] [address] 17334- 4883 Apr, Habitual self-excoriation F42.4 ; Adjustment disorder with depressed mood F43.21 ; Psychophysiological insomnia F51.04 and Eating disorder , unspecified F50.9 [facility] [id number] [place] [address] 15993- 8508 Apr, [facility] [address] 11225- 5886 Apr, Habitual self-excoriation F42.4 ; Adjustment disorder with depressed mood F43.21 ; Psychophysiological insomnia F51.04 and Other mcc (current) drug therapy Z79.899 [facility] [id number] [place] [address] 56059- 7175 Mar, [facility] [id number] [place] [address] 41211- 4290 Mar, [facility] [id number] [place] [address] 59991- 0982 Mar, Anxiety F41.9 [facility] [address] 03828- 8594 Feb, Asthma J45.909 [facility] [id number] [place] [address] 16998- 8981 Feb, [facility] [address] 28724- 3994 Feb, Anxiety F41.9 [facility] [id number] [place] [address] 38506- 5327 Feb, Asthma exacerbation J45.901 and Seasonal allergic rhinitis due to pollen J30.1 [facility] [id number] [place] [address] 46717- 3795 January, [facility] [id number] [place] [address] 14936- 4479 January, Anxiety F41.9 [facility] [id number] [place] [address] 77236- 7603 Dec, Therapeutic drug monitoring Z51.81 [facility] [id number] [place] [address] 91060- 9840 Dec, Anxiety F41.9 and Asthma J45.909 [facility] [id number] [place] [address] 87795- 5699 Nov, Asthma J45.909 [facility] [id number] [place] [address] 28008- 5963 Nov, Anxiety F41.9 [facility] [address] 47653- 0520 Oct, Asthma exacerbation J45.901 ; Pain in right knee M25.561 ; Pain in left knee M25.562 and Open wound of eyebrow, left, subsequent encounter S01.102D [facility] [id number] [place] [address] 40867- 3633 16 Oct, 2016 [facility] [id number] [place] [address] 93228 -6739 Oct, Other viral agents as the cause of diseases classified elsewhere B97.89 and Acute upper respiratory infection, unspecified J06.9 [facility] [id number] [place] [address] 04141- 8772 Oct, [facility] [id number] [place] [address] 34108- 1036 Oct, [facility] [place] [id number] [place] [address] 14900- 2190 Oct, Anxiety F41.9 [facility] [id number] [place] [address] 49563- 4773 Sep, [facility] [place] [id number] [place] [address] 34940- 4266 Sep, SVETLANA treated with BiPAP G47.33 and Asthma J45.909 [facility] [id number] [place] [address] 49266- 6461 Sep, SVETLANA treated with BiPAP G47.33 ; Obesity (BMI 30.0-34.9) E66.9 and Reactive depression F32.9 [facility] [id number] [place] [address] 84290- 8401 Sep, Anxiety F41.9 [facility] [address] 97024- 5618 Aug, [facility] [id number] [place] [address] 91895- 8939 Aug, Insomnia G47.00 [facility] [id number] [place] [address] 28538- 8764 Aug, [facility] [id number] [place] [address] 77894- 4738 Aug, SVETLANA treated with BiPAP G47.33 and On supplemental oxygen therapy Z99.81 [facility] [id number] [place] [address] 20867- 8116 Jul, On supplemental oxygen therapy Z99.81 ; Obesity (BMI 30.0- 34.9) E66.9 and SVETLANA treated with BiPAP G47.33 [facility] [id number] [place] [address] 77411- 3580 Jul, Mucus plugging of bronchi J98.09 ; On supplemental oxygen therapy Z99.81 ; Acute midline thoracic back pain M54.6 and SVETLANA treated with BiPAP G47.33 [facility] [id number] [place] [address] 50762- 0550 16 Jul, 2016 [facility] [id number] [place] [address] 00714- 7037 Jul, [facility] [id number] [place] [address] 56769- 0004 Jul, [facility] [id number] [place] [address] 77088- 5268 May, [facility] [id number] [place] [address] 39077- 1913 May, [facility] [id number] [place] [address] 74459- 6928 Apr, [facility] [id number] [place] [address] 63259- 4831 Apr, [facility] [address] [address]- 4563 Apr, Insomnia G47.00 ; Anemia D64.9 ; OCD (obsessive compulsive disorder) F42 ; Anxiety F41.9 ; Asthma J45.909 and Obesity (BMI 30.0-34.9) E66.9 [facility] [id number] [place] [address] 62005- 8377 Feb, [facility] [id number] [place] [address] 38716- 6745 Feb, Insomnia G47.00 [place] [id number] [place] [address] 25889- 2389 Nov, [facility] [id number] [place] [address] 81402- 1477 Nov, [place] [id number] [place] [address] 82690- 0037 Nov, [facility] [id number] [place] [address] 28505- 6183 Nov, OCD (obsessive compulsive disorder) F42 ; Anxiety F41.9 ; Insomnia G47.00 ; Anemia D64.9 and Asthma J45.909 [facility] [id number] [place] [address] 69188- 6584 Nov, [place] [id number] [place] [address] 63298- 9712 Oct, [facility] [id number] [place] [address] 54280- 6439 Aug, OCD (obsessive compulsive disorder) F42 ; Chronic cellulitis L03.90 ; Anxiety F41.9 ; Insomnia G47.00 ; Anemia D64.9 and Asthma J45.909 [facility] [place] [address] [place] [address] 03310- 6244 Aug, [place] [id number] [place] [address] 22631- 4413 Jul, [facility] [id number] [address]- 7717 Jul, OCD (obsessive compulsive disorder) F42 ; Chronic cellulitis L03.90 ; Anxiety F41.9 ; Insomnia G47.00 and Anemia D64.9 [facility] [address] [place] [address]- 5834 14 Dec, 2014 [facility] [id number] [place] [address]- 0290 Dec, [facility] [address] [place] [address]- 4701 Aug, [facility] [address] [place] [address]- 2402 Aug, [facility] [address], [place] [address]- 8163 Aug, [facility] [address] [place] [address]- 2604 Aug, [facility] [address] [place] [address]- 7271 Aug, [facility] [address] [place] [address]- 2108 Aug, [facility] [address] [place] [address]- 3290 Aug, [facility] [id number] [address]- 2107 Jul, [facility] [id number] [address]- 6152 Jul, [facility] [address], [place] [address]- 8620 Jul, [facility] [id number] [address]- 5269 Jul, [facility] [id number] [place] [address]- 4608 Apr, [facility] [address] [id number] [place] [address]- 9111 Apr, [facility] [place] [facility] [address] [id number] [place] [address]- 3699 Feb, [facility] [address] [id number] [place] [address]- 8144 Feb, [facility] [place] [facility] [address] [id number] [place] [address]- 8261 Feb, [facility] [place] [facility] [address] [id number] [place] [address]- 7783 Feb, [facility] [place] [facility] [address] [id number] [place] [address]- 9071 January, [facility] [address] [id number] [place] [address]- 9725 January, [facility] [address] [id number] [place] [address]- 8368 January, [facility] [place] [facility] [address] [id number] [place] [address]- 5805 Dec, [facility] [address] [id number] [place] [address]- 4005 Dec, [facility] [place] [facility] [address] [id number] [place] [address]- 4813 Dec, [facility] [place] [facility] [address] [id number] [place] [address]- 8210 Dec, [facility] [place] [facility] [address] [id number] [place] [address]- 2019 Nov, [facility] [place] [facility] [address] [id number] [place] [address]- 4637 Nov, [facility] [place] [facility] [address] [id number] [place] [address]- 3867 Nov, [facility] [place] [facility] [address] [id number] [place] [address]- 6747 Nov, [facility] [place] [facility] [address] [id number] [place] [address]- 1558 Nov, [facility] [place] [facility] [address] [id number] [place] [address]- 6604 Nov, [facility] [place] [facility] [address] [id number] [place] [address]- 2980 Oct, [facility] [place] [facility] [address] [id number] [place] [address]- 2343 Oct, [facility] [place] [facility] [address] [id number] [place] [address]- 2353 Oct, [facility] [place] [facility] [address] [id number] [place] [address]- 8527 Oct, [facility] [place] [facility] [address] [id number] [place] [address]- 5325 Oct, [facility] [place] [facility] [address] [id number] [place] [address]- 9095 Oct, [facility] [place] [facility] [address] [id number] [place] [address]- 3980 Oct, [facility] [place] [facility] [address] [id number] [place] [address]- 0945 Oct, [facility] [place] [facility] [address] [id number] [place] [address]- 8248 Oct, [facility] [place] [facility] [address] [id number] [place] [address]- 5676 Oct, [facility] [place] [facility] [address] [id number] [place] [address]- 4388 Oct, [facility] [place] [facility] [address] [id number] [place] [address]- 9134 Oct, [facility] [place] [facility] [id number], [place] [address]- 1696 Sep, [facility] [address], [place] [address]- 6283 Sep, [facility] [address], [place] [address]- 6999 Sep, [facility] [address], [place] [address]- 4395 Sep, [facility] [address], [place] [address]- 1216 Aug, [facility] [id number] [place] [address] 49117- 1328 Aug, [facility] [address], [place] [address]- 3648 Aug, [facility] [id number] [place] [address] 67072- 7893 Aug, [facility] [address], [place] [address]- 9857 Aug, [facility] [address], [place] [address]- 5638 Aug, [facility] [id number], [place] [address]- 2686 Aug, IMMUNIZATIONS Vaccine Route Administration Date Status ROCEPHIN 1 GM (IM) IM Intramuscular April 11, 2018 Administered SOCIAL HISTORY Never Assessed REASON FOR VISIT fever that started last noc. has a cough. they think she has an infection because she has been septic before. lucas, has an appt with dr mckeon on thursday PLAN OF CARE Activity Details Follow Up w/ Dr. Mckeon 04/14 Reason:knee injection/skin infection & fever VITAL SIGNS Height 65 in 2018-04-11 Weight 301.4 lbs 2018-04-11 Temperature 98.4 degrees Fahrenheit 2018-04-11 Heart Rate 84 bpm 2018-04-11 Respiratory Rate 20 2018-04-11 BMI 50.15 kg/m2 2018-04-11 Blood pressure systolic 126 mmHg 2018-04-11 Blood pressure diastolic 70 mmHg 2018-04-11 MEDICATIONS Medication Instructions Dosage Frequency Start Date End Date Duration Status Symbicort 160-4.5 MCG/ACT Inhalation Twice a day 2 puffs 12h January, Not-Taking Levofloxacin 750 MG Orally Once a day 1 tablet 24h Mar, Apr, 10 day(s) Active Zolpidem Tartrate 10 mg Orally at bedtime as needed 1 tablet Active Celexa 20 mg Orally BID 1 tab in AM and 1/2 tab in PM 12h 30 days Active Symbicort 160-4.5 mcg/act Inhalation Twice a day 2 puffs 12h Oct, Active Ventolin HFA 90 MCG/ACT Inhalation every 4 hrs 2 puffs as needed 4h Active Ativan 1 MG Orally twice a day as needed 1 tablet 30 days Active Meloxicam 15 MG Orally Once a day 1 tablet 24h Apr, 30 days Active RESULTS No Results PROCEDURES Procedure Date Ordered Result Body Site ROCEPHIN 1 GM (IM) April 11, 2018 THER/PROPH/DIAG INJ, SC/IM April 11, 2018 INSTRUCTIONS MEDICATIONS ADMINISTERED No Known Medications MEDICAL (GENERAL) HISTORY Type Description Date Medical History asthma Medical History anxiety Medical History gastric bypass 2001 Medical History anemia Medical History sleep apnea treated with biPAP Surgical History gastric bypass 2001 Hospitalization History surgery Hospitalization History anemia Hospitalization History sepsis Hospitalization History Acute hypoxic resp distress--[facility] 07/28/16 Hospitalization History Denies any past psychiatric hospitalization
--- OUTSIDE RECORDS SUMMARY | 2018-10-07 10:22 | XMS REPORT ---
Author Author BRICE RAMIREZ Organization [facility] Address [address] [place] [address] Care Team Providers Care Advertising Space Clerk Name Role Phone BRICE RAMIREZ Unavailable PROBLEMS Type Condition ICD9-CM Code HVM56-YX Code Onset Dates Condition Status SNOMED Code Problem Psychophysiological insomnia F51.04 Active 244465433 Problem Eating disorder, unspecified F50.9 Active 24002155 Problem Adjustment disorder with depressed mood F43.21 Active 47405912 Problem COPD exacerbation J44.1 Active 908871297 Problem Insomnia G47.00 Active 167184048 Problem BMI 45.0-49.9, adult Z68.42 Active 581500618 Problem OCD (obsessive compulsive disorder) F42 Active 151730337 Problem Chronic cellulitis L03.90 Active 133230119 Problem Moderate persistent asthma without complication J45.40 Active 129409737 Problem Body mass index (BMI) of 40.0-44.9 in adult Z68.41 Active 595081277 Problem Severe persistent asthma with acute exacerbation J45.51 Active 745668962 Problem Other obesity due to excess calories E66.09 Active 53587930235732 Problem Obesity (BMI 30.0-34.9) E66.9 Active 186938368026065 Problem SVETLANA treated with BiPAP G47.33 Active 94575431 Problem Anxiety F41.9 Active 21206184 Problem Asthma J45.909 Active 827708818 Problem Iron deficiency anemia, unspecified iron deficiency anemia type D50.9 Active 30451801 Problem Asthma exacerbation J45.901 Active 714343732 Problem Reactive depression F32.9 Active 70569429 Problem Seasonal allergic rhinitis due to pollen J30.1 Active 80649031 Problem Other chronic pain G89.29 Active 72716507 Problem Habitual self-excoriation F42.4 Active 164465926 ALLERGIES No Information ENCOUNTERS Encounter Location Date Diagnosis [facility] [address] [address] May, [facility] [address], [place] [address] Apr, [facility] [id number] [place] [address] 50866- 3621 Apr, [facility] [id number] [place] [address] 53210- 4450 Apr, [facility] [id number] [place] [address] 47939- 2106 Apr, Diarrhea, unspecified type R19.7 [facility] [id number] [place] [address] 17645- 4074 Apr, Diarrhea, unspecified type R19.7 [place] [id number] [place] [address] 40718- 7597 Apr, ROBINA (generalized anxiety disorder) F41.1 ; Moderate episode of recurrent major depressive disorder F33.1 ; Excoriation T14.8XXA ; Binge eating disorder F50.81 and BMI 45.0-49.9, adult Z68.42 [place] [id number] [place] [address] 01873- 0700 Mar, [facility] [address], [place] [address] Mar, Other specified bacterial agents as the cause of diseases classified elsewhere B96.89 ; Local infection of the skin and subcutaneous tissue, unspecified L08.9 ; Fever in other diseases R50.81 and BMI 50.0-59.9, adult Z68.43 [facility] [address] [place] [address] 33765- 4286 Mar, Habitual self-excoriation F42.4 ; Anxiety F41.9 and Psychophysiological insomnia F51.04 [facility] [address], [place] [address] 44[address] Feb, [facility] [id number] [place] [address] 52888- 6840 Feb, Anxiety F41.9 and Psychophysiological insomnia F51.04 [place] [id number] [place] [address] 32589- 4336 January, Acute pain of left knee M25.562 and BMI 50.0-59.9, adult Z68.43 [place] [address] 99176- 4768 January, [address] [address]52- 2281 January, COPD exacerbation J44.1 and Severe persistent asthma with acute exacerbation J45.51 [place] [address] 09085- 8945 January, Anxiety F41.9 and Psychophysiological insomnia F51.04 [place] [id number] [place] [address] 27349- 2956 January, COPD exacerbation J44.1 and Left medial knee pain M25.562 [place] [id number] [place] [address] 16556- 1689 Dec, COPD with exacerbation J44.1 ; BMI 45.0-49.9, adult Z68.42 ; SVETLANA treated with BiPAP G47.33 and Psychophysiological insomnia F51.04 [place] [id number] [place] [address] 84260- 6347 Dec, [place] [id number] [place] [address] 33600- 8986 Dec, Acute pain of left knee M25.562 ; Unspecified fall, initial encounter W19.XXXA ; Unspecified place in unspecified non-institutional (private ) residence as the place of occurrence of the external cause Y92.009 ; BMI 45.0- 49.9, adult Z68.42 and Severe persistent asthma with acute exacerbation J45.51 [place] [id number] [place] [address] 93883- 1317 Dec, Anxiety F41.9 and Psychophysiological insomnia F51.04 [place] [id number] [place] [address] 06590- 1079 Nov, Psychophysiological insomnia F51.04 [facility] [address] 71614- 0879 Oct, [place] [address] 54582- 9117 Oct, Anxiety F41.9 [place] [address] 91458- 2445 Oct, [place] [address] 60447- 1127 Oct, Severe persistent asthma with acute exacerbation J45.51 ; Tobacco abuse Z72.0 and BMI 45.0-49.9, adult Z68.42 [place] [address] 28060- 3396 Oct, Psychophysiological insomnia F51.04 [place] [address] 00957- 1695 Sep, Anxiety F41.9 [place] [address] 77421- 3330 Sep, Anxiety F41.9 and Habitual self-excoriation F42.4 [place] [id number] [place] [address] 30151- 5797 Sep, Psychophysiological insomnia F51.04 [place] [id number] [place] [address] 92618- 5566 Aug, Anxiety F41.9 [place] [address] 48960- 4272 Aug, Asthma J45.909 [place] [address] 93912- 5927 Aug, Anxiety F41.9 [facility] [id number] [place] [address] 12544 -2548 Aug, Acute bronchitis, unspecified organism J20.9 [facility] [id number] [place] [address] 04197- 2392 Aug, Psychophysiological insomnia F51.04 [facility] [id number] [place] [address] 70736- 4756 Jul, Therapeutic drug monitoring Z51.81 [place] [address] 90100- 1754 Jul, [facility] [address] 27064- 0092 Jul, Habitual self-excoriation F42.4 [place] [address] 44706- 6297 Jul, [place] [id number] [place] [address] 30609- 2546 Jul, [place] [id number] [place] [address] 11367- 9168 Jun, SVETLANA treated with BiPAP G47.33 ; Moderate persistent asthma without complication J45.40 ; Anxiety F41.9 ; Other obesity due to excess calories E66.09 ; Body mass index (BMI) of 40.0-44.9 in adult Z68.41 ; Psychophysiological insomnia F51.04 and Encounter for immunization Z23 [place] [id number] [place] [address] 13234- 3559 Jun, [place] [address] [address]602- 1997 Jun, Habitual self-excoriation F42.4 ; Adjustment disorder with depressed mood F43.21 ; Psychophysiological insomnia F51.04 and Eating disorder , unspecified F50.9 [place] [id number] [place] [address] 22373- 6481 Jun, Visit for TB skin test Z11.1 [facility] [address], [place] [address] 5879 Jun, Habitual self-excoriation F42.4 and Psychophysiological insomnia F51.04 [facility] [address], [place] [address]- 9517 Jun, Asthma J45.909 [facility] [id number] [place] [address] 95537- 7869 May, Asthma J45.909 [place] [id number] [place] [address] 61029- 3733 May, [place] [id number] [place] [address] 67177- 1652 May, Habitual self-excoriation F42.4 and Psychophysiological insomnia F51.04 [place] [address] [place] [address] 03611- 6451 Apr, Habitual self-excoriation F42.4 ; Adjustment disorder with depressed mood F43.21 ; Psychophysiological insomnia F51.04 and Eating disorder , unspecified F50.9 [place] [address] [place] [address] 90745- 2963 Apr, [place] [address], [place] [address]- 7999 Apr, Habitual self-excoriation F42.4 ; Adjustment disorder with depressed mood F43.21 ; Psychophysiological insomnia F51.04 and Other snf (current) drug therapy Z79.899 [place] [address], [place] [address]- 7252 Mar, [place] [id number] [place] [address] 98480- 9870 Mar, [place] [address], [place] [address]- 8075 Mar, Anxiety F41.9 [place] [address] [place] [address] 14967- 7476 Feb, Asthma J45.909 [facility] [id number] [place] [address] 14433- 4276 Feb, [facility] [address] [place] [address] 86041- 3025 Feb, Anxiety F41.9 [place] [id number] [place] [address] 79229- 0910 Feb, Asthma exacerbation J45.901 and Seasonal allergic rhinitis due to pollen J30.1 [place] [id number] [place] [address] 63400- 6291 January, [place] [id number] [place] [address] 00700- 3664 January, Anxiety F41.9 [place] [id number] [place] [address] 04245- 6161 Dec, Therapeutic drug monitoring Z51.81 [place] [id number] [place] [address] 51359- 7646 Dec, Anxiety F41.9 and Asthma J45.909 [place] [address] [place] [address] 59005- 6703 Nov, Asthma J45.909 [place] [address] [place] [address] 90480- 4448 Nov, Anxiety F41.9 [place] [id number] [place] [address] 78427- 0768 Oct, Asthma exacerbation J45.901 ; Pain in right knee M25.561 ; Pain in left knee M25.562 and Open wound of eyebrow, left, subsequent encounter S01.102D [facility] [address], [place] [address]- 0298 Oct, [facility] [id number] [place] [address] 41636 -7054 11 Oct, 2016 Other viral agents as the cause of diseases classified elsewhere B97.89 and Acute upper respiratory infection, unspecified J06.9 [place] [id number] [place] [address] 16263- 8324 10 Oct, 2016 [place] [id number] [place] [address] 94734- 9497 08 Oct, 2016 [place] [address] 63949- 5914 02 Oct, 2016 Anxiety F41.9 [place] [address] 89414- 0070 Sep, [place] [id number] [place] [address] 60575- 1336 Sep, SVETLANA treated with BiPAP G47.33 and Asthma J45.909 [place] [id number] [place] [address] 14223- 9746 Sep, SVETLANA treated with BiPAP G47.33 ; Obesity (BMI 30.0-34.9) E66.9 and Reactive depression F32.9 [place] [id number] [place] [address] 85778- 5678 Sep, Anxiety F41.9 [place] [id number] [place] [address] 30745- 5816 Aug, [place] [id number] [place] [address] 21165- 8004 Aug, Insomnia G47.00 [place] [address] 88210- 4296 Aug, [place] [id number] [place] [address] 29257- 4187 Aug, SVETLANA treated with BiPAP G47.33 and On supplemental oxygen therapy Z99.[address] [place] [address]- 7678 Jul, On supplemental oxygen therapy Z99.81 ; Obesity (BMI 30.0- 34.9) E66.9 and SVETLANA treated with BiPAP G47.33 [facility] [id number] [place] [address] 88901- 9101 17 Jul, 2016 Mucus plugging of bronchi J98.09 ; On supplemental oxygen therapy Z99.81 ; Acute midline thoracic back pain M54.6 and SVETLANA treated with BiPAP G47.33 [facility] [address] 19200- 3429 16 Jul, 2016 [facility] [address] 14729- 9365 Jul, [facility] [address] 21457- 0042 Jul, [facility] [address] 21259- 6701 May, [facility] [address] 82520- 2870 May, [facility] [address] 46703- 2258 Apr, [facility] [id number] [place] [address] 00690- 9341 Apr, [facility] [address] 20761- 9229 Apr, Insomnia G47.00 ; Anemia D64.9 ; OCD (obsessive compulsive disorder) F42 ; Anxiety F41.9 ; Asthma J45.909 and Obesity (BMI 30.0-34.9) E66.9 [facility] [id number] [place] [address] 86292- 9056 Feb, [facility] [id number] [place] [address] 90983- 3794 Feb, Insomnia G47.00 [facility] [address], [place] [address]- 4115 17 Nov, 2015 [facility] [id number] [place] [address] 43000- 3294 Nov, [facility] [address] [place] [address] 46098- 9585 Nov, [facility] [id number] [place] [address] 10797- 2422 Nov, OCD (obsessive compulsive disorder) F42 ; Anxiety F41.9 ; Insomnia G47.00 ; Anemia D64.9 and Asthma J45.909 [facility] [id number] [place] [address] 40196- 2178 Nov, [facility] [id number] [place] [address] 28664- 0420 Oct, [facility] [id number] [place] [address] 73342- 6747 Aug, OCD (obsessive compulsive disorder) F42 ; Chronic cellulitis L03.90 ; Anxiety F41.9 ; Insomnia G47.00 ; Anemia D64.9 and Asthma J45.909 [facility] [address] [place] [address] 60232- 5934 Aug, [facility] [address] [place] [address] 13719- 4933 Jul, [facility] [address] [place] [address] 21631- 8494 Jul, OCD (obsessive compulsive disorder) F42 ; Chronic cellulitis L03.90 ; Anxiety F41.9 ; Insomnia G47.00 and Anemia D64.9 [facility] [address] [place] [address] 78107- 3274 Dec, [facility] [address] [place] [address] 00847- 6202 Dec, [facility] [address] [place] [id number] [place] [address]- 6709 Aug, [facility] [place] [facility] [address] [id number] [place] [address]- 5704 Aug, [facility] [place] [facility] [address] [id number] [place] [address]- 2340 Aug, [facility] [place] [facility] [address] [id number] [place] [address]- 8266 Aug, [facility] [place] [facility] [address] [id number] [place] [address]- 9378 Aug, [facility] [place] [facility] [address] [id number] [place] [address]- 2872 Aug, [facility] [place] [facility] [address] [id number] [place] [address]- 7977 Aug, [facility] [place] [facility] [address] [id number] [place] [address]- 2786 Jul, [facility] [place] [facility] [address] [id number] [place] [address]- 3235 Jul, [facility] [place] [facility] [address] [id number] [place] [address]- 1063 Jul, [facility] [place] [facility] [address] [id number] [place] [address]- 7122 Jul, [facility] [place] [facility] [address] [id number] [place] [address]- 7228 Apr, [facility] [place] [facility] [address] [id number] [place] [address]- 2302 Apr, [facility] [place] [facility] [address] [id number] [place] [address]- 5288 Feb, [facility] [place] [facility] [address] [id number] [place] [address]- 3240 Feb, [facility] [place] [facility] [address] [id number] [place] [address]- 0637 Feb, [facility] [place] [facility] [address] [id number] [place] [address]- 6737 Feb, [facility] [place] [facility] [address] [id number] [place] [address]- 8542 January, [facility] [place] [facility] [address] [id number] [place] [address]- 4946 January, [facility] [place] [facility] [address] [id number] [place] [address]- 2652 January, [facility] [place] [facility] [address] [id number] [place] [address]- 0666 Dec, [facility] [place] [facility] [address] [id number] [place] [address]- 7797 Dec, [facility] [place] [facility] [address] [id number] [place] [address]- 3240 Dec, [facility] [place] [facility] [address] [id number] [place] [address]- 4290 Dec, [facility] [place] [facility] [address] [id number] [place] [address]- 0307 Nov, [facility] [place] [facility] [address] [id number] [place] [address]- 8628 Nov, [facility] [place] [facility] [address] [id number] [place] [address]- 4220 Nov, [facility] [place] [facility] [address] [id number] [place] [address]- 4061 Nov, [facility] [place] [facility] [address] [id number] [place] [address]- 3815 Nov, [facility] [place] [facility] [address] [id number] [place] [address]- 9054 Nov, [facility] [place] [facility] [address] [id number] [place] 6330 Oct, [facility] [place] [facility] [address] [id number] [place] [address]- 4218 Oct, [facility] [place] [facility] [address] [id number] [place] [address]- 9816 Oct, [facility] [place] [facility] [address] [id number] [place] [address]- 8656 Oct, [facility] [place] [facility] [address] [id number] [place] [address]- 3916 Oct, [facility] [place] [facility] [address] [id number] [place] [address]- 3320 Oct, [facility] [place] [facility] [address] [id number] [place] [address]- 1203 Oct, [facility] [place] [facility] [address] [id number] [place] [address]- 2393 Oct, [facility] [place] [facility] [address] [id number] [place] [address]- 0204 Oct, [facility] [place] [facility] [address] [id number] [place] [address]- 8579 Oct, [facility] [place] [facility] [address] [id number] [place] [address]- 9541 Oct, [facility] [place] [facility] [address] [facility] [id number] [place] [address]- 2986 Oct, [facility] [place] [facility] [address] [id number] [place] [address]- 2364 Sep, [facility] [place] [facility] [address] [id number] [place] [address]- 0813 Sep, [facility] [place] [facility] [address] [id number] [place] [address]- 1970 Sep, [facility] [place] [facility] [address] [id number] [place] [address]- 0489 Sep, [facility] [place] [facility] [address] [id number] [place] [address]- 7730 Aug, [facility] [address] [facility]NOTE [facility] [id number], [place] [address]- 2688 Aug, [facility] [id number] [address]- 8378 Aug, [facility] [address] [facility]NOTE 3] [id number], [place] [address]- 6150 Aug, [facility] [id number] [address]- 8006 Aug, [facility] [address] [facility] 3] [id number] 7680 Aug, [facility] [address] [facility]] [id number], [place] [address]- 3645 Aug, IMMUNIZATIONS No Known Immunizations SOCIAL HISTORY [...] History sepsis Hospitalization History Acute hypoxic resp distress--[facility] 07/28/16 Hospitalization History Denies any past psychiatric hospitalization
--- OUTSIDE RECORDS SUMMARY | 2018-10-07 10:22 | XMS REPORT ---
Author Author BRICE RAMIREZ Organization [facility] Address [address] [place] [address] Care Team Providers Care Laborer Road Name Role Phone BRICE RAMIREZ Unavailable PROBLEMS Type Condition ICD9-CM Code OOS98-GC Code Onset Dates Condition Status SNOMED Code Problem Psychophysiological insomnia F51.04 Active 545178823 Problem Eating disorder, unspecified F50.9 Active 38279473 Problem Adjustment disorder with depressed mood F43.21 Active 25140554 Problem COPD exacerbation J44.1 Active 149186556 Problem Insomnia G47.00 Active 052698187 Problem BMI 45.0-49.9, adult Z68.42 Active 277225907 Problem OCD (obsessive compulsive disorder) F42 Active 190877560 Problem Chronic cellulitis L03.90 Active 181573070 Problem Moderate persistent asthma without complication J45.40 Active 831335755 Problem Body mass index (BMI) of 40.0-44.9 in adult Z68.41 Active 957138081 Problem Severe persistent asthma with acute exacerbation J45.51 Active 076501924 Problem Other obesity due to excess calories E66.09 Active [id number] Problem Obesity (BMI 30.0-34.9) E66.9 Active [id number] Problem SVETLANA treated with BiPAP G47.33 Active 90963478 Problem Anxiety F41.9 Active 98298800 Problem Asthma J45.909 Active 601201310 Problem Iron deficiency anemia, unspecified iron deficiency anemia type D50.9 Active 97296506 Problem Asthma exacerbation J45.901 Active 010891877 Problem Reactive depression F32.9 Active 65377545 Problem Seasonal allergic rhinitis due to pollen J30.1 Active 95969573 Problem Other chronic pain G89.29 Active 22626606 Problem Habitual self-excoriation F42.4 Active 438328291 ALLERGIES No Information ENCOUNTERS Encounter Location Date Diagnosis [facility] [address] [address] May, [facility] [address] [address] Apr, [facility] [id number] [place] [address] 92196- 2794 Apr, [facility] [id number] [place] [address] 46967- 2034 Apr, [facility] [id number] [place] [address] 90920- 4859 Apr, Diarrhea, unspecified type R19.7 [facility] [id number] [place] [address] 03873- 5148 Apr, Diarrhea, unspecified type R19.7 [facility] [place] [address] [place] [address] 81762- 8037 Apr, ROBINA (generalized anxiety disorder) F41.1 ; Moderate episode of recurrent major depressive disorder F33.1 ; Excoriation T14.8XXA ; Binge eating disorder F50.81 and BMI 45.0-49.9, adult Z68.42 [facility] [place] [id number] [place] [address] 81230- 0166 Mar, [facility] [address] [address] Mar, Other specified bacterial agents as the cause of diseases classified elsewhere B96.89 ; Local infection of the skin and subcutaneous tissue, unspecified L08.9 ; Fever in other diseases R50.81 and BMI 50.0-59.9, adult Z68.43 [facility] [id number] [place] [address] 63749- 1015 Mar, Habitual self-excoriation F42.4 ; Anxiety F41.9 and Psychophysiological insomnia F51.04 [facility] [address] [address] Feb, [facility] [id number] [place] [address] 64737- 7425 Feb, Anxiety F41.9 and Psychophysiological insomnia F51.04 [facility] [place] [id number] [place] [address] 59139- 6167 January, Acute pain of left knee M25.562 and BMI 50.0-59.9, adult Z68.43 [facility] [address] [address]24- 0452 January, [address] [address]- 2025 January, COPD exacerbation J44.1 and Severe persistent asthma with acute exacerbation J45.51 [facility] [address] 15659- 3549 January, Anxiety F41.9 and Psychophysiological insomnia F51.04 [facility] [id number] [place] [address] 36961- 3176 January, COPD exacerbation J44.1 and Left medial knee pain M25.562 [place] [id number] [place] [address] 31832- 0960 Dec, COPD with exacerbation J44.1 ; BMI 45.0-49.9, adult Z68.42 ; SVETLANA treated with BiPAP G47.33 and Psychophysiological insomnia F51.04 [facility] [place] [id number] [place] [address] 26686- 8640 Dec, [place] [id number] [place] [address] 46169- 6947 Dec, Acute pain of left knee M25.562 ; Unspecified fall, initial encounter W19.XXXA ; Unspecified place in unspecified non-institutional (private ) residence as the place of occurrence of the external cause Y92.009 ; BMI 45.0- 49.9, adult Z68.42 and Severe persistent asthma with acute exacerbation J45.51 [facility] [id number] [place] [address] 01904- 6817 Dec, Anxiety F41.9 and Psychophysiological insomnia F51.04 [facility] [place] [id number] [place] [address] 74581- 5653 Nov, Psychophysiological insomnia F51.04 [facility] [address] 74453- 2233 Oct, [facility] [address] 81436- 3117 Oct, Anxiety F41.9 [facility] [address] 50370- 2762 Oct, [facility] [address] 60317- 9791 Oct, Severe persistent asthma with acute exacerbation J45.51 ; Tobacco abuse Z72.0 and BMI 45.0-49.9, adult Z68.42 [facility] [address] 71400- 2190 Oct, Psychophysiological insomnia F51.04 [facility] [address] 68510- 7775 Sep, Anxiety F41.9 [facility] [address] 59026- 2908 Sep, Anxiety F41.9 and Habitual self-excoriation F42.4 [facility] [place] [id number] [place] [address] 61895- 0434 Sep, Psychophysiological insomnia F51.04 [facility] [place] [id number] [place] [address] 77126- 3446 Aug, Anxiety F41.9 [facility] [address] 91480- 9464 Aug, Asthma J45.909 [facility] [address] 19766- 0888 Aug, Anxiety F41.9 [facility] [id number] [place] [address] 08057 -3826 Aug, Acute bronchitis, unspecified organism J20.9 [facility] [id number] [place] [address] 92814- 1461 Aug, Psychophysiological insomnia F51.04 [facility] [id number] [place] [address] 62009- 5347 Jul, Therapeutic drug monitoring Z51.81 [facility] [address] 55997- 1063 Jul, [facility] [address] 62283- 8448 Jul, Habitual self-excoriation F42.4 [facility] [address] 50960- 2000 Jul, [facility] [place] [id number] [place] [address] 54209- 3095 Jul, [facility] [place] [id number] [place] [address] 95924- 4815 Jun, SVETLANA treated with BiPAP G47.33 ; Moderate persistent asthma without complication J45.40 ; Anxiety F41.9 ; Other obesity due to excess calories E66.09 ; Body mass index (BMI) of 40.0-44.9 in adult Z68.41 ; Psychophysiological insomnia F51.04 and Encounter for immunization Z23 [facility] [id number] [place] [address] 08634- 4803 Jun, [facility] [address] 04581- 9508 Jun, Habitual self-excoriation F42.4 ; Adjustment disorder with depressed mood F43.21 ; Psychophysiological insomnia F51.04 and Eating disorder , unspecified F50.9 [facility] [id number] [place] [address] 43595- 6881 Jun, Visit for TB skin test Z11.1 [facility] [address], [place] [address]- 5573 Jun, Habitual self-excoriation F42.4 and Psychophysiological insomnia F51.04 [facility] [address], [place] [address]- 9521 Jun, Asthma J45.909 [facility] [id number] [place] [address] 36018- 7962 May, Asthma J45.909 [facility] [id number] [place] [address] 92313- 3722 May, [facility] [id number] [place] [address] 07755- 2894 May, Habitual self-excoriation F42.4 and Psychophysiological insomnia F51.04 [facility] [address] [place] [address] 44539- 9783 Apr, Habitual self-excoriation F42.4 ; Adjustment disorder with depressed mood F43.21 ; Psychophysiological insomnia F51.04 and Eating disorder , unspecified F50.9 [facility] [address] [place] [address] 07344- 7433 Apr, [facility] [address] [address]- 2327 Apr, Habitual self-excoriation F42.4 ; Adjustment disorder with depressed mood F43.21 ; Psychophysiological insomnia F51.04 and Other [facility] Z79.899 [place] [address], [place] [address]- 5971 Mar, [facility] [id number] [place] [address] 67761- 2385 Mar, [place] [address], [place] [address]- 6862 Mar, Anxiety F41.9 [place] [address] [place] [address] 38246- 3392 Feb, Asthma J45.909 [facility] [id number] [place] [address] 22880- 6956 Feb, [facility] [address] [place] [address] 70767- 7243 Feb, Anxiety F41.9 [place] [id number] [place] [address] 44473- 5200 Feb, Asthma exacerbation J45.901 and Seasonal allergic rhinitis due to pollen J30.1 [facility] [id number] [place] [address] 48455- 0691 January, [facility] [id number] [place] [address] 05125- 0172 January, Anxiety F41.9 [facility] [id number] [place] [address] 86490- 2082 Dec, Therapeutic drug monitoring Z51.81 [facility] [place] [id number] [place] [address] 34215- 9668 Dec, Anxiety F41.9 and Asthma J45.909 [facility] [place] [address] [place] [address] 27413- 3999 Nov, Asthma J45.909 [facility] [address] [place] [address] 44112- 2514 Nov, Anxiety F41.9 [place] [id number] [place] [address] 55661- 3905 Oct, Asthma exacerbation J45.901 ; Pain in right knee M25.561 ; Pain in left knee M25.562 and Open wound of eyebrow, left, subsequent encounter S01.102D [facility] [address], [place] [address]- 2244 Oct, [facility] [id number] [place] [address] 56176 -0904 11 Oct, 2016 Other viral agents as the cause of diseases classified elsewhere B97.89 and Acute upper respiratory infection, unspecified J06.9 [facility] [id number] [place] [address] 46650- 0345 10 Oct, 2016 [place] [id number] [place] [address] 23528- 8623 08 Oct, 2016 [place] [address] 07077- 9249 02 Oct, 2016 Anxiety F41.9 [place] [address] 34879- 2906 Sep, [place] [id number] [place] [address] 25416- 8034 Sep, SVETLANA treated with BiPAP G47.33 and Asthma J45.909 [place] [id number] [place] [address] 72742- 0865 Sep, SVETLANA treated with BiPAP G47.33 ; Obesity (BMI 30.0-34.9) E66.9 and Reactive depression F32.9 [place] [id number] [place] [address] 23116- 3368 Sep, Anxiety F41.9 [place] [id number] [place] [address] 28653- 2835 Aug, [place] [id number] [place] [address] 74076- 5852 Aug, Insomnia G47.00 [place] [address] 37832- 8373 Aug, [place] [id number] [place] [address] 54882- 1422 Aug, SVETLANA treated with BiPAP G47.33 and On supplemental oxygen therapy Z99.[address] [place] [address]- 6969 Jul, On supplemental oxygen therapy Z99.81 ; Obesity (BMI 30.0- 34.9) E66.9 and SVETLANA treated with BiPAP G47.33 [facility] [id number] [place] [address] 32321- 7943 17 Jul, 2016 Mucus plugging of bronchi J98.09 ; On supplemental oxygen therapy Z99.81 ; Acute midline thoracic back pain M54.6 and SVETLANA treated with BiPAP G47.33 [facility] [address] 36395- 1012 16 Jul, 2016 [facility] [address] 21609- 2505 Jul, [facility] [address] 67717- 3749 Jul, [facility] [address] 67098- 4754 May, [facility] [address] 69868- 9655 May, [facility] [address] 29594- 6591 Apr, [facility] [id number] [place] [address] 77456- 2991 Apr, [facility] [address] 61745- 7851 Apr, Insomnia G47.00 ; Anemia D64.9 ; OCD (obsessive compulsive disorder) F42 ; Anxiety F41.9 ; Asthma J45.909 and Obesity (BMI 30.0-34.9) E66.9 [facility] [id number] [place] [address] 84547- 0820 Feb, [facility] [id number] [place] [address] 66306- 8864 Feb, Insomnia G47.00 [facility] [address] [address]- 9123 17 Nov, 2015 [facility] [id number] [place] [address] 34697- 5413 Nov, [facility] [address] [place] [address] 61572- 6728 Nov, [facility] [id number] [place] [address] 68733- 9498 Nov, OCD (obsessive compulsive disorder) F42 ; Anxiety F41.9 ; Insomnia G47.00 ; Anemia D64.9 and Asthma J45.909 [facility] [id number] [place] [address] 64901- 0369 Nov, [facility] [id number] [place] [address] 13310- 1090 Oct, [facility] [id number] [place] [address] 87269- 9920 Aug, OCD (obsessive compulsive disorder) F42 ; Chronic cellulitis L03.90 ; Anxiety F41.9 ; Insomnia G47.00 ; Anemia D64.9 and Asthma J45.909 [facility] [address] [place] [address] 30308- 3051 Aug, [facility] [address] [place] [address] 01444- 9588 Jul, [facility] [address] [place] [address] 78718- 7546 Jul, OCD (obsessive compulsive disorder) F42 ; Chronic cellulitis L03.90 ; Anxiety F41.9 ; Insomnia G47.00 and Anemia D64.9 [facility] [address] [place] [address] 16987- 1190 Dec, [facility] [address] [place] [address] 83399- 4729 Dec, [facility] [address] [place] [address] [place] [address]- 4801 Aug, [facility] [place] [facility] [address] [id number] [place] [address]- 2097 Aug, [facility] [place] [facility] [address] [id number] [place] [address]- 1981 Aug, [facility] [place] [facility] [address] [id number] [place] [address]- 5392 Aug, [facility] [place] [facility] [address] [id number] [place] [address]- 3611 Aug, [facility] [place] [facility] [address] [id number] [place] [address]- 7644 Aug, [facility] [place] [facility] [address] [id number] [place] [address]- 0814 Aug, [facility] [place] [facility] [address] [id number] [place] [address]- 7817 Jul, [facility] [place] [facility] [address] [id number] [place] [address]- 2640 Jul, [facility] [place] [facility] [address] [id number] [place] [address]- 1202 Jul, [facility] [place] [facility] [address] [id number] [place] [address]- 4612 Jul, [facility] [place] [facility] [address] [id number] [place] [address]- 9955 Apr, [facility] [place] [facility] [address] [id number] [place] [address]- 5185 Apr, [facility] [place] [facility] [address] [id number] [place] [address]- 7055 Feb, [facility] [place] [facility] [address] [id number] [place] [address]- 5309 Feb, [facility] [place] [facility] [address] [id number] [place] [address]- 7353 Feb, [facility] [place] [facility] [address] [id number] [place] [address]- 2200 Feb, [facility] [place] [facility] [address] [id number] [place] [address]- 8923 January, [facility] [place] [facility] [address] [id number] [place] [address]- 8671 January, [facility] [place] [facility] [address] [id number] [place] [address]- 8811 January, [facility] [place] [facility] [address] [id number] [place] [address]- 9454 Dec, [facility] [place] [facility] [address] [id number] [place] [address]- 2848 Dec, [facility] [place] [facility] [address] [id number] [place] [address]- 9731 Dec, [facility] [place] [facility] [address] [id number] [place] [address]- 3639 Dec, [facility] [place] [facility] [address] [id number] [place] [address]- 5871 Nov, [facility] [place] [facility] [address] [id number] [place] [address]- 0398 Nov, [facility] [place] [facility] [address] [id number] [place] [address]- 2825 Nov, [facility] [place] [facility] [address] [id number] [place] [address]- 6987 Nov, [facility] [place] [facility] [address] [id number] [place] [address]- 9583 Nov, [facility] [place] [facility] [address] [id number] [place] [address]- 2043 Nov, [facility] [place] [facility] [address] [id number] [place] 0013 Oct, [facility] [place] [facility] [address] [id number] [place] [address]- 3783 Oct, [facility] [place] [facility] [address] [id number] [place] [address]- 9066 Oct, [facility] [place] [facility] [address] [id number] [place] [address]- 4676 Oct, [facility] [place] [facility] [address] [id number] [place] [address]- 0926 Oct, [facility] [place] [facility] [address] [id number] [place] [address]- 2780 Oct, [facility] [place] [facility] [address] [id number] [place] [address]- 2939 Oct, [facility] [place] [facility] [address] [id number] [place] [address]- 9230 Oct, [facility] [place] [facility] [address] [id number] [place] [address]- 8350 Oct, [facility] [place] [facility] [address] [id number] [place] [address]- 1567 Oct, [facility] [place] [facility] [address] [id number] [place] [address]- 2052 Oct, [facility] [place] [facility] [address] [facility] [id number] [place] [address]- 7193 Oct, [facility] [place] [facility] [address] [id number] [place] [address]- 7409 Sep, [facility] [place] [facility] [address] [id number] [place] [address]- 9913 Sep, [facility] [place] [facility] [address] [id number] [place] [address]- 5929 Sep, [facility] [place] [facility] [address] [id number] [place] [address]- 1301 Sep, [facility] [place] [facility] [address] [id number] [place] [address]- 1407 Aug, [facility] [address] [facility] [id number], [place] [address]- 1007 Aug, [facility] [address] [facility] [id number] [address]- 6600 Aug, [facility] [address] [facility] [id number] [address]- 6544 Aug, [facility] [address] [facility] [id number], [place] [address]- 8240 Aug, [facility] [address] [facility] [id number], [place] [address]- 8745 Aug, [facility] [address] [facility] [id number], [place] [address]- 1531 Aug, IMMUNIZATIONS No Known Immunizations SOCIAL HISTORY [...] treated with biPAP Surgical History gastric bypass 2002 Hospitalization History surgery Hospitalization History anemia Hospitalization History sepsis Hospitalization History Acute hypoxic resp distress--[facility] 07/28/16 Hospitalization History Denies any past psychiatric hospitalization
--- OUTSIDE RECORDS SUMMARY | 2018-10-07 10:23 | XMS REPORT ---
Author Author TAYLOR COPE Organization [facility] Address [address] [place] [address] Care Team Providers Care Manager Audio Name Role Phone SAIDA COPETA Unavailable PROBLEMS Type Condition ICD9-CM Code [id number] Code Onset Dates Condition Status SNOMED Code Problem Psychophysiological insomnia F51.04 Active 327543781 Problem Eating disorder, unspecified F50.9 Active 89653420 Problem Adjustment disorder with depressed mood F43.21 Active 78948182 Problem COPD exacerbation J44.1 Active 660808301 Problem Insomnia G47.00 Active 735095944 Problem BMI 45.0-49.9, adult Z68.42 Active 142707755 Problem OCD (obsessive compulsive disorder) F42 Active 537705575 Problem Chronic cellulitis L03.90 Active 822206611 Problem Moderate persistent asthma without complication J45.40 Active 280555488 Problem Body mass index (BMI) of 40.0-44.9 in adult Z68.41 Active 075719429 Problem Severe persistent asthma with acute exacerbation J45.51 Active 927670632 Problem Other obesity due to excess calories E66.09 Active 74426154549586 Problem Obesity (BMI 30.0-34.9) E66.9 Active 041064259640145 Problem SVETLANA treated with BiPAP G47.33 Active 74453956 Problem Anxiety F41.9 Active 93664708 Problem Asthma J45.909 Active 956032605 Problem Iron deficiency anemia, unspecified iron deficiency anemia type D50.9 Active 18665160 Problem Asthma exacerbation J45.901 Active 722976393 Problem Reactive depression F32.9 Active 06445283 Problem Seasonal allergic rhinitis due to pollen J30.1 Active 05340313 Problem Other chronic pain G89.29 Active 21615444 Problem Habitual self-excoriation F42.4 Active 891155013 ALLERGIES Substance Reaction Event Type Date Status Morphine Sulfate itching Drug Allergy January, Active ENCOUNTERS Encounter Location Date Diagnosis [facility] [id number], [place] [address] May, [facility] [address], [place] [address] Apr, [facility] [address], [place] [address] Apr, [facility] [id number] [place] [address] 28502- 4212 Apr, Diarrhea, unspecified type R19.7 [facility] [address], [place] [address] Apr, Diarrhea, unspecified type R19.7 [address] [address] [address] [place] [address] 11391- 8313 Apr, ROBINA (generalized anxiety disorder) F41.1 ; Moderate episode of recurrent major depressive disorder F33.1 ; Excoriation T14.8XXA ; Binge eating disorder F50.81 and BMI 45.0-49.9, adult Z68.42 [facility] [address], [place] [address] Mar, [facility] [id number] [address] Mar, Other specified bacterial agents as the cause of diseases classified elsewhere B96.89 ; Local infection of the skin and subcutaneous tissue, unspecified L08.9 ; Fever in other diseases R50.81 and BMI 50.0-59.9, adult Z68.43 [facility] [id number], [place] [address] Mar, Habitual self-excoriation F42.4 ; Anxiety F41.9 and Psychophysiological insomnia F51.04 [facility] [address], [place] [address] Feb, [facility] [address], [place] [address] 480[address] Feb, Anxiety F41.9 and Psychophysiological insomnia F51.04 [place] [id number] [place] [address] 47871- 8988 January, Acute pain of left knee M25.562 and BMI 50.0-59.9, adult Z68.43 [place] [id number] [place] [address] 45802- 6148 January, [place] [address] [address]- 6682 January, COPD exacerbation J44.1 and Severe persistent asthma with acute exacerbation J45.51 [place] [address] 9[address]83- 1916 January, Anxiety F41.9 and Psychophysiological insomnia F51.04 [place] [id number] [place] [address] 44306- 5634 January, COPD exacerbation J44.1 and Left medial knee pain M25.562 [place] [id number] [place] [address] 11800- 5879 Dec, COPD with exacerbation J44.1 ; BMI 45.0-49.9, adult Z68.42 ; SVETLANA treated with BiPAP G47.33 and Psychophysiological insomnia F51.04 [place] [id number] [place] [address] 99081- 2049 Dec, [facility] [id number] [place] [address] 20387- 7717 Dec, Acute pain of left knee M25.562 ; Unspecified fall, initial encounter W19.XXXA ; Unspecified place in unspecified non-institutional (private ) residence as the place of occurrence of the external cause Y92.009 ; BMI 45.0- 49.9, adult Z68.42 and Severe persistent asthma with acute exacerbation J45.51 [place] [address], [place] [address]- 0409 Dec, Anxiety F41.9 and Psychophysiological insomnia F51.04 [facility] [address] [place] [address] 33636- 9248 Nov, Psychophysiological insomnia F51.04 [facility] [id number] [place] [address] 79676- 1211 Oct, [facility] [id number] [place] [address] 51340- 2519 Oct, Anxiety F41.9 [facility] [id number] [place] [address] 29986- 7261 Oct, [facility] [id number] [place] [address] 47674- 0040 Oct, Severe persistent asthma with acute exacerbation J45.51 ; Tobacco abuse Z72.0 and BMI 45.0-49.9, adult Z68.42 [place] [address] [place] [address] 99453- 9208 Oct, Psychophysiological insomnia F51.04 [facility] [id number] [place] [address] 72622- 5059 Sep, Anxiety F41.9 [place] [address] [place] [address] 23354- 1150 Sep, Anxiety F41.9 and Habitual self-excoriation F42.4 [place] [address] [place] [address] 23161- 8492 Sep, Psychophysiological insomnia F51.04 [facility] [id number] [place] [address] 26567- 5582 Aug, Anxiety F41.9 [facility] [address] [place] [address] 94708- 6326 Aug, Asthma J45.909 [facility] [address] [place] [address] 08327- 8447 Aug, Anxiety F41.9 [facility] [id number] [place] [address] 84574 -1718 Aug, Acute bronchitis, unspecified organism J20.9 [place] [address] 10400- 0634 Aug, Psychophysiological insomnia F51.04 [place] [address] [place] [address] 54916- 2809 Jul, Therapeutic drug monitoring Z51.81 [place] [address] 63424- 0006 Jul, [place] [address] 12482- 6096 Jul, Habitual self-excoriation F42.4 [place] [address] 80995- 5040 08 Jul, 2017 [place] [address] 13246- 8763 Jul, [place] [facility] [id number] [place] [address] 10531- 1459 Jun, SVETLANA treated with BiPAP G47.33 ; Moderate persistent asthma without complication J45.40 ; Anxiety F41.9 ; Other obesity due to excess calories E66.09 ; Body mass index (BMI) of 40.0-44.9 in adult Z68.41 ; Psychophysiological insomnia F51.04 and Encounter for immunization Z23 [place] [address] [place] [address] 91943- 6385 Jun, [place] [address] [place] [address] 92749- 3700 Jun, Habitual self-excoriation F42.4 ; Adjustment disorder with depressed mood F43.21 ; Psychophysiological insomnia F51.04 and Eating disorder , unspecified F50.9 [place] [address] [place] [address] 64152- 9839 Jun, Visit for TB skin test Z11.1 [place] [address], [place] [address]- 0277 Jun, Habitual self-excoriation F42.4 and Psychophysiological insomnia F51.04 [facility] [id number] [place] [address] 06079- 3729 Jun, Asthma J45.909 [facility] [address] [place] [address] 44321- 1214 May, Asthma J45.909 [facility] [id number] [place] [address] 21884- 9816 May, [facility] [address] [place] [address] 97954- 2613 May, Habitual self-excoriation F42.4 and Psychophysiological insomnia F51.04 [place] [address] [place] [address] 75806- 8770 Apr, Habitual self-excoriation F42.4 ; Adjustment disorder with depressed mood F43.21 ; Psychophysiological insomnia F51.04 and Eating disorder , unspecified F50.9 [place] [address] [place] [address] 79683- 9721 Apr, [facility] [address] [place] [address] 69399- 5840 Apr, Habitual self-excoriation F42.4 ; Adjustment disorder with depressed mood F43.21 ; Psychophysiological insomnia F51.04 and Other intermediate accountant (current) drug therapy Z79.899 [facility] [address] [place] [address] 20668- 1836 Mar, [facility] [address] [place] [address] 02994- 6697 Mar, [facility] [address] [place] [address] 44023- 5755 Mar, Anxiety F41.9 [facility] [address] [place] [address] 49247- 2957 Feb, Asthma J45.909 [facility] [address] [place] [address] 19552- 1469 Feb, [place] [address] 88931- 4520 Feb, Anxiety F41.9 [place] [address] 04056- 4689 Feb, Asthma exacerbation J45.901 and Seasonal allergic rhinitis due to pollen J30.1 [place] [address] 08278- 8095 January, [place] [address] 24637- 3116 January, Anxiety F41.9 [place] [address] 48280- 6780 Dec, Therapeutic drug monitoring Z51.81 [place] [address] 90871- 0822 Dec, Anxiety F41.9 and Asthma J45.909 [place] [address] 20252- 0193 Nov, Asthma J45.909 [place] [address] 53800- 5332 Nov, Anxiety F41.9 [place] [address] 26745- 1869 Oct, Asthma exacerbation J45.901 ; Pain in right knee M25.561 ; Pain in left knee M25.562 and Open wound of eyebrow, left, subsequent encounter S01.102D [facility] [address] [place] [address] 69056- 6045 16 Oct, 2016 [facility] [address] 30528 -[address]26 Oct, Other viral agents as the cause of diseases classified elsewhere B97.89 and Acute upper respiratory infection, unspecified J06.9 [place] [address] 88008- 4323 10 Oct, 2016 [place] [address] [place] [address] 51287- 3355 Oct, [place] [address] 68865- 4510 Oct, Anxiety F41.9 [place] [address] 02506- 3898 Sep, [place] [address] 40451- 6999 Sep, SVETLANA treated with BiPAP G47.33 and Asthma J45.[address] 24012- 0747 Sep, SVETLANA treated with BiPAP G47.33 ; Obesity (BMI 30.0-34.9) E66.9 and Reactive depression F32.9 [place] [address] 52878- 8861 Sep, Anxiety F41.9 [place] [address] [place] [address] 78313- 6935 Aug, [place] [address] [place] [address] 20037- 6407 Aug, Insomnia G47.00 [place] [address] [place] [address] 50656- 8862 Aug, [place] [address] 37963- 6692 Aug, SVETLANA treated with BiPAP G47.33 and On supplemental oxygen therapy Z99.81 [place] [address] 90440- 2593 Jul, On supplemental oxygen therapy Z99.81 ; Obesity (BMI 30.0- 34.9) E66.9 and SVETLANA treated with BiPAP G47.33 [facility] [address] 50934- 0961 Jul, Mucus plugging of bronchi J98.09 ; On supplemental oxygen therapy Z99.81 ; Acute midline thoracic back pain M54.6 and SVETLANA treated with BiPAP G47.33 [facility] [address] 99485- 1644 Jul, [facility] [address] 88432- 6421 Jul, [facility] [address] 12959- 8528 Jul, [facility] [address] 43606- 8350 May, [facility] [address] 75273- 4596 May, [facility] [address] 27409- 5442 Apr, [facility] [address] 30482- 3119 Apr, [facility] [address] [place] [address] 37389- 1584 Apr, Insomnia G47.00 ; Anemia D64.9 ; OCD (obsessive compulsive disorder) F42 ; Anxiety F41.9 ; Asthma J45.909 and Obesity (BMI 30.0-34.9) E66.9 [facility] [address] 17176- 1918 Feb, [facility] [address] 07518- 5379 Feb, Insomnia G47.00 [facility] [address] 04237- 8309 17 Nov, 2015 [facility] [address], [place] [address]- 7056 15 Nov, 2015 [facility] [address] [place] [address] 29702- 0272 15 Nov, 2015 [facility] [address] [place] [address] 05814- 8850 14 Nov, 2015 OCD (obsessive compulsive disorder) F42 ; Anxiety F41.9 ; Insomnia G47.00 ; Anemia D64.9 and Asthma J45.909 [facility] [address] [place] [address] 72744- 2014 Nov, [facility] [address] [place] [address] 09415- 2414 Oct, [facility] [address] [place] [address] 37944- 7793 Aug, OCD (obsessive compulsive disorder) F42 ; Chronic cellulitis L03.90 ; Anxiety F41.9 ; Insomnia G47.00 ; Anemia D64.9 and Asthma J45.909 [facility] [address] [place] [address] 67776- 4072 Aug, [facility] [address] [place] [address] 66291- 4104 Jul, [facility] [address] [place] [address] 61944- 4504 Jul, OCD (obsessive compulsive disorder) F42 ; Chronic cellulitis L03.90 ; Anxiety F41.9 ; Insomnia G47.00 and Anemia D64.9 [facility] [address] [place] [address] 26727- 5886 Dec, [facility] [address] [place] [address] 73279- 1379 Dec, [facility] [address] [place] [address] 35650- 2390 Aug, [facility] [place] [facility] [address] [id number] [place] [address]- 5466 Aug, [facility] [place] [facility] [address] [id number] [place] [address]- 9544 Aug, [facility] [place] [facility] [address] [id number] [place] [address]- 3803 Aug, [facility] [place] [facility] [address] [id number] [place] [address]- 2344 Aug, [facility] [place] [facility] [address] [id number] [place] [address]- 7331 Aug, [facility] [place] [facility] [address] [id number] [place] [address]- 8597 Aug, [facility] [place] [facility] [address] [id number] [place] [address]- 4979 Jul, [facility] [place] [facility] [address] [id number] [place] [address]- 7014 Jul, [facility] [place] [facility] [address] [id number] [place] [address]- 0820 Jul, [facility] [place] [facility] [address] [id number] [place] [address]- 3050 Jul, [facility] [place] [facility] [address] [id number] [place] [address]- 2238 Apr, [facility] [place] [facility] [address] [id number] [place] [address]- 6889 Apr, [facility] [place] [facility] [address] [id number] [place] [address]- 4163 Feb, [facility] [place] [facility] [address] [id number] [place] [address]- 7241 Feb, [facility] [place] [facility] [address] [id number] [place] 5159 Feb, [facility] [place] [facility] [address] [id number], [place] [address]- 7116 Feb, [facility] [place] [facility] [address] [id number] [place] [address]- 1973 January, [facility] [place] [facility] [address] [id number] [place] [address]- 1770 January, [facility] [place] [facility] [address] [id number] [place] [address]- 9084 January, [facility] [place] [facility] [address] [id number] [place] [address]- 9247 Dec, [facility] [place] [facility] [address] [id number] [place] [address]- 6690 Dec, [facility] [place] [facility] [address] [id number] [place] [address]- 8804 Dec, [facility] [place] [facility] [address] [id number] [place] [address]- 8295 Dec, [facility] [place] [facility] [address] [id number] [place] [address]- 3897 Nov, [facility] [place] [facility] [address] [id number] [place] [address]- 4802 Nov, [facility] [place] [facility] [address] [id number] [place] [address]- 3806 Nov, [facility] [place] [facility] [address] [id number] [place] [address]- 2417 Nov, [facility] [place] [facility] [address] [id number] [place] [address]- 0971 Nov, [facility] [place] [facility] [address] [id number] [place] [address]- 6132 Nov, [facility] [place] [facility] [address] [id number] [place] [address]- 4305 Oct, [facility] [place] [facility] [address] [id number] [place] [address]- 3728 Oct, [facility] [place] [facility] [address] [id number] [place] [address]- 9989 Oct, [facility] [place] [facility] [address] [id number] [place] [address]- 5305 Oct, [facility] [place] [facility] [address] [id number] [place] [address]- 7369 Oct, [facility] [place] [facility] [address] [id number] [place] [address]- 5990 Oct, [facility] [place] [facility] [address] [id number] [place] [address]- 1012 Oct, [facility] [place] [facility] [address] [id number] [place] [address]- 2243 Oct, [facility] [place] [facility] [address] [id number] [place] [address]- 0775 Oct, [facility] [place] [facility] [address] [id number] [place] [address]- 7611 Oct, [facility] [place] [facility] [address] [id number] [place] [address]- 1196 Oct, [facility] [place] [facility] [address] [id number] [place] [address]- 7949 Oct, [facility] [place] [facility] [address] [id number] [place] [address]- 6461 Sep, [facility] [place] [facility] [address] [id number], [place] [address]- 6405 Sep, [facility] [place] [facility] [address] [id number] [place] [address]- 6417 Sep, [facility] [place] [facility] [address] [id number] [place] [address]- 7065 Sep, [facility] [place] [facility] [address] [id number] [place] [address]- 6132 Aug, [facility] [place] [facility] [address] [facility] [id number] [place] [address]- 3482 Aug, [facility] [address] [facility] [id number], [place] [address]- 3965 Aug, [facility] [address] [facility] [id number] 8220 Aug, [facility] [address] 0466 Aug, [facility] [id number] [address]- 4579 Aug, [facility] [address] [facility] [id number], [place] [address]- 1243 Aug, IMMUNIZATIONS No Known Immunizations SOCIAL HISTORY Never Assessed REASON FOR VISIT knee pain-MARIANGEL Amador, pt fell about 2-3 months ago on her hardwood floor. It has progressively got worse. Can only raise her leg so far., Leg and foot are swollen PLAN OF CARE Activity Details Follow Up prn Reason: VITAL SIGNS Height 65 in 2018-02-12 Weight 310.8 lbs 2018-02-12 Temperature 98.1 degrees Fahrenheit 2018-02-12 Heart Rate 88 bpm 2018-02-12 Respiratory Rate 20 2018-02-12 BMI 51.71 kg/m2 2018-02-12 Blood pressure systolic 122 mmHg 2018-02-12 Blood pressure diastolic 58 mmHg 2018-02-12 MEDICATIONS Medication Instructions Dosage Frequency Start Date End Date Duration Status Symbicort 160-4.5 mcg/act Inhalation Twice a day 2 puffs h Oct, Active PredniSONE 5 mg Orally Once a day 1 tablet 24h January, January, 30 day(s) Active Meloxicam 7.5 MG Orally Once a day 1 tablet 24h January, Feb, 30 day(s) Active Symbicort 160-4.5 MCG/ACT Inhalation Twice a day 2 puffs 12h January, Not-Taking Celexa 20 mg Orally BID 1 tab in AM and 1/2 tab in PM 12h 30 days Active Ventolin HFA 90 MCG/ACT Inhalation every 4 hrs 2 puffs as needed 4h Active Ativan 1 MG Orally twice a day as needed 1 tablet 30 days Active Zolpidem Tartrate 10 mg Orally at bedtime as needed 1 tablet Active RESULTS Name Result Date Reference Range Xray : Knee, Left 3 views (IN HOUSE) 2018-02-12 PROCEDURES Procedure Date Ordered Result Body Site X-RAY EXAM OF KNEE, 3 February 12, 2018 INSTRUCTIONS MEDICATIONS ADMINISTERED No Known Medications MEDICAL (GENERAL) HISTORY Type Description Date Medical History asthma Medical History anxiety Medical History gastric bypass 2001 Medical History anemia Medical History sleep apnea treated with biPAP Surgical History gastric bypass 2001 Hospitalization History surgery Hospitalization History anemia Hospitalization History sepsis Hospitalization History Acute hypoxic resp distress--[facility] 07/28/16 Hospitalization History Denies any past psychiatric hospitalization
--- OUTSIDE RECORDS SUMMARY | 2018-10-07 10:23 | XMS REPORT ---
Author Author BRICE RAMIREZ Organization [facility] Address [address] [place] [address] Care Team Providers Care Mileage Clerk Name Role Phone BRICE RAMIREZ Unavailable PROBLEMS Type Condition ICD9-CM Code SAX81-GN Code Onset Dates Condition Status SNOMED Code Problem Psychophysiological insomnia F51.04 Active 928612539 Problem Eating disorder, unspecified F50.9 Active 59689246 Problem Adjustment disorder with depressed mood F43.21 Active 71959513 Problem COPD exacerbation J44.1 Active 194698479 Problem Insomnia G47.00 Active 148375517 Problem BMI 45.0-49.9, adult Z68.42 Active 573037717 Problem OCD (obsessive compulsive disorder) F42 Active 714606421 Problem Chronic cellulitis L03.90 Active 281295400 Problem Moderate persistent asthma without complication J45.40 Active 692168018 Problem Body mass index (BMI) of 40.0-44.9 in adult Z68.41 Active 034243709 Problem Severe persistent asthma with acute exacerbation J45.51 Active 611827142 Problem Other obesity due to excess calories E66.09 Active 19283397139020 Problem Obesity (BMI 30.0-34.9) E66.9 Active 980741357092186 Problem SVETLANA treated with BiPAP G47.33 Active 91381823 Problem Anxiety F41.9 Active 31616862 Problem Asthma J45.909 Active 238116430 Problem Iron deficiency anemia, unspecified iron deficiency anemia type D50.9 Active 60203072 Problem Asthma exacerbation J45.901 Active 595361663 Problem Reactive depression F32.9 Active 56509566 Problem Seasonal allergic rhinitis due to pollen J30.1 Active 78570290 Problem Other chronic pain G89.29 Active 26704345 Problem Habitual self-excoriation F42.4 Active 263876208 ALLERGIES Substance Reaction Event Type Date Status Morphine Sulfate itching Drug Allergy Dec, Active ENCOUNTERS Encounter Location Date Diagnosis [facility] [id number] [address] May, [facility] [address] [address] Apr, [facility] [address] [address] Apr, [facility] [id number] [place] [address] 77194- 8208 Apr, Diarrhea, unspecified type R19.7 [facility] [address] [address] Apr, Diarrhea, unspecified type R19.7 [facility] [id number] [place] [address] 01147- 3308 Apr, ROBINA (generalized anxiety disorder) F41.1 ; Moderate episode of recurrent major depressive disorder F33.1 ; Excoriation T14.8XXA ; Binge eating disorder F50.81 and BMI 45.0-49.9, adult Z68.42 [facility] [address] [address] Mar, [facility] [address] [address] Mar, Other specified bacterial agents as the cause of diseases classified elsewhere B96.89 ; Local infection of the skin and subcutaneous tissue, unspecified L08.9 ; Fever in other diseases R50.81 and BMI 50.0-59.9, adult Z68.43 [facility] [id number] [address] Mar, Habitual self-excoriation F42.4 ; Anxiety F41.9 and Psychophysiological insomnia F51.04 [facility] [address] [address] Feb, [facility] [address] [address] 8777 Feb, Anxiety F41.9 and Psychophysiological insomnia F51.04 [facility] [id number] [place] [address] 26115- 9519 January, Acute pain of left knee M25.562 and BMI 50.0-59.9, adult Z68.43 [facility] [id number] [place] [address] 58779- 4085 January, [facility] [address] [address]- 4460 January, COPD exacerbation J44.1 and Severe persistent asthma with acute exacerbation J45.51 [facility] [address] 36304- 6398 January, Anxiety F41.9 and Psychophysiological insomnia F51.04 [facility] [id number] [place] [address] 08297- 4272 January, COPD exacerbation J44.1 and Left medial knee pain M25.562 [facility] [id number] [place] [address] 82817- 9561 Dec, COPD with exacerbation J44.1 ; BMI 45.0-49.9, adult Z68.42 ; SVETLANA treated with BiPAP G47.33 and Psychophysiological insomnia F51.04 [facility] [id number] [place] [address] 01905- 9347 Dec, [facility] [id number] [place] [address] 25017- 2233 Dec, Acute pain of left knee M25.562 ; Unspecified fall, initial encounter W19.XXXA ; Unspecified place in unspecified non-institutional (private ) residence as the place of occurrence of the external cause Y92.009 ; BMI 45.0- 49.9, adult Z68.42 and Severe persistent asthma with acute exacerbation J45.51 [facility] [id number] [place] [address] 92966- 7427 Dec, Anxiety F41.9 and Psychophysiological insomnia F51.04 [facility] [id number] [place] [address] 26386- 3818 Nov, Psychophysiological insomnia F51.04 [facility] [id number] [place] [address] 10843- 1747 Oct, [facility] [id number] [place] [address] 62531- 3556 Oct, Anxiety F41.9 [facility] [id number] [place] [address] 32948- 0134 Oct, [facility] [address] 9[address]92- 2711 Oct, Severe persistent asthma with acute exacerbation J45.51 ; Tobacco abuse Z72.0 and BMI 45.0-49.9, adult Z68.42 [facility] [id number] [place] [address] 52619- 8869 Oct, Psychophysiological insomnia F51.04 [facility] [id number] [place] [address] 27136- 2900 Sep, Anxiety F41.9 [facility] [id number] [place] [address] 49101- 8892 Sep, Anxiety F41.9 and Habitual self-excoriation F42.4 [facility] [id number] [place] [address] 90048- 3518 Sep, Psychophysiological insomnia F51.04 [facility] [id number] [place] [address] 59129- 2779 Aug, Anxiety F41.9 [facility] [id number] [place] [address] 91940- 5210 Aug, Asthma J45.909 [facility] [id number] [place] [address] 57333- 8636 Aug, Anxiety F41.9 [facility] [id number] [place] [address] 85802 -8643 Aug, Acute bronchitis, unspecified organism J20.9 [facility] [address] 73895- 7835 Aug, Psychophysiological insomnia F51.04 [facility] [id number] [place] [address] 16453- 1110 Jul, Therapeutic drug monitoring Z51.81 [facility] [address] 44644- 3498 Jul, [facility] [address] 80193- 2657 Jul, Habitual self-excoriation F42.4 [facility] [address] 12702- 4708 08 Jul, 2017 [facility] [address] 78041- 7530 Jul, [facility] [id number] [place] [address] 30796- 5453 Jun, SVETLANA treated with BiPAP G47.33 ; Moderate persistent asthma without complication J45.40 ; Anxiety F41.9 ; Other obesity due to excess calories E66.09 ; Body mass index (BMI) of 40.0-44.9 in adult Z68.41 ; Psychophysiological insomnia F51.04 and Encounter for immunization Z23 [facility] [id number] [place] [address] 53116- 6129 Jun, [facility] [id number] [place] [address] 47906- 1748 Jun, Habitual self-excoriation F42.4 ; Adjustment disorder with depressed mood F43.21 ; Psychophysiological insomnia F51.04 and Eating disorder , unspecified F50.9 [facility] [id number] [place] [address] 85427- 9782 Jun, Visit for TB skin test Z11.1 [facility] [address] [address]- 1186 Jun, Habitual self-excoriation F42.4 and Psychophysiological insomnia F51.04 [facility] [address] [place] [address] 72064- 9738 Jun, Asthma J45.909 [facility] [id number] [place] [address] 12427- 2486 May, Asthma J45.909 [facility] [id number] [place] [address] 14180- 0246 May, [facility] [id number] [place] [address] 06658- 1018 May, Habitual self-excoriation F42.4 and Psychophysiological insomnia F51.04 [facility] [id number] [place] [address] 76026- 2562 Apr, Habitual self-excoriation F42.4 ; Adjustment disorder with depressed mood F43.21 ; Psychophysiological insomnia F51.04 and Eating disorder , unspecified F50.9 [facility] [id number] [place] [address] 76193- 4766 Apr, [facility] [id number] [place] [address] 31893- 8015 Apr, Habitual self-excoriation F42.4 ; Adjustment disorder with depressed mood F43.21 ; Psychophysiological insomnia F51.04 and Other mcfp (current) drug therapy Z79.899 [facility] [address] [place] [address] 03865- 8372 Mar, [facility] [id number] [place] [address] 61034- 2560 Mar, [facility] [id number] [place] [address] 81281- 1740 Mar, Anxiety F41.9 [facility] [id number] [place] [address] 44939- 8729 Feb, Asthma J45.909 [facility] [id number] [place] [address] 87370- 0944 Feb, [facility] [address] 75840- 0776 Feb, Anxiety F41.9 [facility] [address] 62685- 2977 Feb, Asthma exacerbation J45.901 and Seasonal allergic rhinitis due to pollen J30.1 [facility] [address] 82270- 2487 January, [facility] [address] 17102- 5688 January, Anxiety F41.9 [facility] [address] 75589- 8797 Dec, Therapeutic drug monitoring Z51.81 [facility] [address] 51368- 3793 Dec, Anxiety F41.9 and Asthma J45.909 [facility] [address] 44026- 4694 Nov, Asthma J45.909 [facility] [id number] [place] [address] 24175- 3814 Nov, Anxiety F41.9 [facility] [address] 32237- 0190 Oct, Asthma exacerbation J45.901 ; Pain in right knee M25.561 ; Pain in left knee M25.562 and Open wound of eyebrow, left, subsequent encounter S01.102D [facility] [id number] [place] [address] 52457- 3445 16 Oct, 2016 [facility] [id number] [place] [address] 57951 -8884 Oct, Other viral agents as the cause of diseases classified elsewhere B97.89 and Acute upper respiratory infection, unspecified J06.9 [facility] [address] 29784- 0371 10 Oct, 2016 [facility] [id number] [place] [address] 32652- 6737 Oct, [facility] [address] 95131- 9635 Oct, Anxiety F41.9 [facility] [address] 83663- 8398 Sep, [facility] [address] 11343- 6725 Sep, SVETLANA treated with BiPAP G47.33 and Asthma J45.909 [facility] [address] 45628- 5962 Sep, SVETLANA treated with BiPAP G47.33 ; Obesity (BMI 30.0-34.9) E66.9 and Reactive depression F32.9 [facility] [address] 46676- 2272 Sep, Anxiety F41.9 [facility] [id number] [place] [address] 55616- 3734 Aug, [facility] [id number] [place] [address] 55797- 3811 Aug, Insomnia G47.00 [facility] [id number] [place] [address] 20603- 8192 Aug, [facility] [address] 23810- 0124 Aug, SVETLANA treated with BiPAP G47.33 and On supplemental oxygen therapy Z99.81 [facility] [address] 28255- 1117 Jul, On supplemental oxygen therapy Z99.81 ; Obesity (BMI 30.0- 34.9) E66.9 and SVETLANA treated with BiPAP G47.33 [facility] [id number] [place] [address] 70336- 4378 Jul, 2016 Mucus plugging of bronchi J98.09 ; On supplemental oxygen therapy Z99.81 ; Acute midline thoracic back pain M54.6 and SVETLANA treated with BiPAP G47.33 [facility] [address] 65636- 0404 Jul, [facility] [id number] [place] [address] 60155- 5109 Jul, [facility] [address] 43082- 9200 Jul, [facility] [address] 96924- 3833 May, [facility] [id number] [place] [address] 48974- 3075 May, [facility] [id number] [place] [address] 18175- 3359 Apr, [facility] [id number] [place] [address] 02535- 5245 Apr, [facility] [id number] [place] [address] 85358- 2815 Apr, Insomnia G47.00 ; Anemia D64.9 ; OCD (obsessive compulsive disorder) F42 ; Anxiety F41.9 ; Asthma J45.909 and Obesity (BMI 30.0-34.9) E66.9 [facility] [id number] [place] [address] 20493- 5859 Feb, [facility] [id number] [place] [address] 46667- 3815 Feb, Insomnia G47.00 [facility] [address] 00970- 9824 17 Nov, 2015 [facility] [address] [address]- 4914 15 Nov, 2015 [facility] [id number] [place] [address] 80319- 4383 15 Nov, 2015 [facility] [address] [place] [address] 82722- 4958 14 Nov, 2015 OCD (obsessive compulsive disorder) F42 ; Anxiety F41.9 ; Insomnia G47.00 ; Anemia D64.9 and Asthma J45.909 [facility] [id number] [place] [address] 90453- 7879 Nov, [facility] [id number] [place] [address] 33014- 3140 Oct, [facility] [id number] [place] [address] 84659- 8046 Aug, OCD (obsessive compulsive disorder) F42 ; Chronic cellulitis L03.90 ; Anxiety F41.9 ; Insomnia G47.00 ; Anemia D64.9 and Asthma J45.909 [facility] [id number] [place] [address] 73991- 0861 Aug, [facility] [id number] [place] [address] 88310- 7890 Jul, [facility] [id number] [place] [address] 86154- 5790 Jul, OCD (obsessive compulsive disorder) F42 ; Chronic cellulitis L03.90 ; Anxiety F41.9 ; Insomnia G47.00 and Anemia D64.9 [facility] [id number] [place] [address] 06856- 5337 Dec, [facility] [id number] [place] [address] 29469- 0871 Dec, [facility] [id number] [place] [address] 07948- 1108 Aug, [facility] [place] [facility] [address] [id number] [place] [address]- 4037 Aug, [facility] [place] [facility] [address] [id number] [place] [address]- 3322 Aug, [facility] [place] [facility] [address] [id number] [place] [address]- 4835 Aug, [facility] [place] [facility] [address] [id number] [place] [address]- 5342 Aug, [facility] [place] [facility] [address] [id number] [place] [address]- 3935 Aug, [facility] [place] [facility] [address] [id number] [place] [address]- 2084 Aug, [facility] [place] [facility] [address] [id number] [place] [address]- 8922 Jul, [facility] [place] [facility] [address] [id number] [place] [address]- 8414 Jul, [facility] [place] [facility] [address] [id number] [place] [address]- 9990 Jul, [facility] [place] [facility] [address] [id number] [place] [address]- 0827 Jul, [facility] [place] [facility] [address] [id number] [place] [address]- 4759 Apr, [facility] [place] [facility] [address] [id number] [place] [address]- 9343 Apr, [facility] [place] [facility] [address] [id number] [place] [address]- 3222 Feb, [facility] [place] [facility] [address] [id number] [place] [address]- 3498 Feb, [facility] [place] [facility] [address] [id number] [place] [address]- 1894 Feb, [facility] [place] [facility] [address] [id number] [address]- 4349 Feb, [facility] [place] [facility] [address] [id number] [place] [address]- 3032 January, [facility] [place] [facility] [address] [id number] [place] [address]- 1596 January, [facility] [place] [facility] [address] [id number] [place] [address]- 1950 January, [facility] [place] [facility] [address] [id number] [place] [address]- 6367 Dec, [facility] [place] [facility] [address] [id number] [place] [address]- 0760 Dec, [facility] [place] [facility] [address] [id number] [place] [address]- 2257 Dec, [facility] [place] [facility] [address] [id number] [place] [address]- 6607 Dec, [facility] [place] [facility] [address] [id number] [place] [address]- 5940 Nov, [facility] [place] [facility] [address] [id number] [place] [address]- 5613 Nov, [facility] [place] [facility] [address] [id number] [place] [address]- 1818 Nov, [facility] [place] [facility] [address] [id number] [place] [address]- 1416 Nov, [facility] [place] [facility] [address] [id number] [place] [address]- 9503 Nov, [facility] [place] [facility] [address] [id number] [place] [address]- 1582 Nov, [facility] [place] [facility] [address] [id number] [place] [address]- 9880 Oct, [facility] [place] [facility] [address] [id number] [place] [address]- 0962 Oct, [facility] [place] [facility] [address] [id number] [place] [address]- 5440 Oct, [facility] [place] [facility] [address] [id number] [place] [address]- 2716 Oct, [facility] [place] [facility] [address] [id number] [place] [address]- 3826 Oct, [facility] [place] [facility] [address] [id number] [place] [address]- 7648 Oct, [facility] [place] [facility] [address] [id number] [place] [address]- 8190 Oct, [facility] [place] [facility] [address] [id number] [place] [address]- 7958 Oct, [facility] [place] [facility] [address] [id number] [place] [address]- 3242 Oct, [facility] [place] [facility] [address] [id number] [place] [address]- 1738 Oct, [facility] [place] [facility] [address] [id number] [place] [address]- 2383 Oct, [facility] [place] [facility] [address] [id number] [place] [address]- 9749 Oct, [facility] [place] [facility] [address] [id number] [place] [address]- 2687 Sep, [facility] [place] [facility] [address] [id number] [place] [address]- 2709 Sep, [facility] [place] [facility] [address] [id number] [place] [address]- 5830 Sep, [facility] [place] [facility] [address] [id number] [place] [address]- 5843 Sep, [facility] [place] [facility] [address] [id number] [place] [address]- 0359 Aug, [facility] [place] [facility] [address] [facility] [id number] [address]- 5950 Aug, [facility] [address] [facility] [id number] [address]- 0987 Aug, [facility] [id number] [address]- 7108 Aug, [facility] [id number] [address]- 9419 Aug, [facility] [id number] [address]- 3857 Aug, [facility] [address] [facility] [id number] [address]- 1791 Aug, IMMUNIZATIONS Vaccine Route Administration Date Status DEPO MEDROL 80 MG/ML IM Intramuscular January 12, 2018 Administered SOCIAL HISTORY Never Assessed REASON FOR VISIT Shortness of breath, wheezing x 5 days----RODGERennettNACHO PLAN OF CARE Activity Details Follow Up 2 Weeks with Linda chauhan copd Exacerbation Reason: VITAL SIGNS Height 65 in 2018-01-12 Weight 303 lbs 2018-01-12 Temperature 98.0 degrees Fahrenheit 2018-01-12 Heart Rate 120 bpm 2018-01-12 Respiratory Rate 2018-01-12 Oximetry 95 % 2018-01-12 BMI 50.42 kg/m2 2018-01-12 Blood pressure systolic 132 mmHg 2018-01-12 Blood pressure diastolic 70 mmHg 2018-01-12 MEDICATIONS Medication Instructions Dosage Frequency Start Date End Date Duration Status Ventolin HFA 90 MCG/ACT Inhalation every 4 hrs 2 puffs as needed 4h Active Ibuprofen 600 MG Orally Three times a day 1 tablet with food or milk as needed 8h Dec, Active Ativan 1 MG Orally twice a day as needed 1 tablet 30 days Active PredniSONE 20 mg Orally Once a day 1 tablet 24h Dec, January, 10 days Active Symbicort 160-4.5 mcg/act Inhalation Twice a day 2 puffs 12h Oct, Active Celexa 20 mg Orally BID 1 tab in AM and 1/2 tab in PM 12h 30 days Active Chantix Starting Month Nish 0.5 MG X 11 & 1 MG X 42 as directed Oct, Not-Taking Zolpidem Tartrate 10 mg Orally at bedtime as needed 1 tablet Active RESULTS No Results PROCEDURES Procedure Date Ordered Result Body Site DEPO MEDROL 80 MG/ML January 12, 2018 THER/PROPH/DIAG INJ, SC/IM January 12, 2018 INSTRUCTIONS MEDICATIONS ADMINISTERED No Known Medications MEDICAL (GENERAL) HISTORY Type Description Date Medical History asthma Medical History anxiety Medical History gastric bypass 2001 Medical History anemia Medical History sleep apnea treated with biPAP Surgical History gastric bypass 2001 Hospitalization History surgery Hospitalization History anemia Hospitalization History sepsis Hospitalization History Acute hypoxic resp distress--[facility] 07/28/16 Hospitalization History Denies any past psychiatric hospitalization
--- OUTSIDE RECORDS SUMMARY | 2018-10-07 10:24 | XMS REPORT ---
Author Author BRICE RAMIREZ Organization [facility] Address [address] [place] [address] Care Team Providers Care [employer] Level [employer] Name Role Phone BRICE RAMIREZ Unavailable PROBLEMS Type Condition ICD9-CM Code LBV10-XR Code Onset Dates Condition Status SNOMED Code Problem Psychophysiological insomnia F51.04 Active 777295217 Problem Eating disorder, unspecified F50.9 Active 96897272 Problem Adjustment disorder with depressed mood F43.21 Active 62375158 Problem COPD exacerbation J44.1 Active 521547914 Problem Insomnia G47.00 Active 935582894 Problem BMI 45.0-49.9, adult Z68.42 Active 311440862 Problem OCD (obsessive compulsive disorder) F42 Active 407560921 Problem Chronic cellulitis L03.90 Active 492199503 Problem Moderate persistent asthma without complication J45.40 Active 440401050 Problem Body mass index (BMI) of 40.0-44.9 in adult Z68.41 Active 856626781 Problem Severe persistent asthma with acute exacerbation J45.51 Active 488694857 Problem Other obesity due to excess calories E66.09 Active 52280731496863 Problem Obesity (BMI 30.0-34.9) E66.9 Active 324160722234881 Problem SVETLANA treated with BiPAP G47.33 Active 05712752 Problem Anxiety F41.9 Active 72386736 Problem Asthma J45.909 Active 143703527 Problem Iron deficiency anemia, unspecified iron deficiency anemia type D50.9 Active 29141068 Problem Asthma exacerbation J45.901 Active 282301577 Problem Reactive depression F32.9 Active 70677123 Problem Seasonal allergic rhinitis due to pollen J30.1 Active 97184423 Problem Other chronic pain G89.29 Active 58919029 Problem Habitual self-excoriation F42.4 Active 242012864 ALLERGIES No Information ENCOUNTERS Encounter Location Date Diagnosis [facility] [address], [place] [address] May, [facility] [id number] [place] [address] 40537- 3733 Apr, [facility] [id number] [place] [address] 47715- 6118 Apr, [facility] [id number] [place] [address] 39347- 2309 Apr, Diarrhea, unspecified type R19.7 [facility] [id number] [place] [address] 96386- 9981 Apr, Diarrhea, unspecified type R19.7 [place] [id number] [place] [address] 98830- 0171 Apr, ROBINA (generalized anxiety disorder) F41.1 ; Moderate episode of recurrent major depressive disorder F33.1 ; Excoriation T14.8XXA ; Binge eating disorder F50.81 and BMI 45.0-49.9, adult Z68.42 [facility] [facility] [id number] [place] [address] 20903- 7394 Mar, [facility] [id number] [place] [address] 88105 -2850 Mar, Other specified bacterial agents as the cause of diseases classified elsewhere B96.89 ; Local infection of the skin and subcutaneous tissue, unspecified L08.9 ; Fever in other diseases R50.81 and BMI 50.0-59.9, adult Z68.43 [place] [id number] [place] [address] 39629- 6408 Mar, Habitual self-excoriation F42.4 ; Anxiety F41.9 and Psychophysiological insomnia F51.04 [place] [id number] [place] [address] 34704- 9853 Feb, [facility] [id number] [place] [address] 68589- 2450 Feb, Anxiety F41.9 and Psychophysiological insomnia F51.04 [place] [id number] [place] [address] 62919- 0297 January, Acute pain of left knee M25.562 and BMI 50.0-59.9, adult Z68.43 [place] [id number] [place] [address] 70426- 6714 January, [place] [address] 06926- 7251 January, COPD exacerbation J44.1 and Severe persistent asthma with acute exacerbation J45.51 [facility] [facility] [id number] [place] [address] 37952- 2815 January, Anxiety F41.9 and Psychophysiological insomnia F51.04 [place] [id number] [place] [address] 28253- 5537 January, COPD exacerbation J44.1 and Left medial knee pain M25.562 [facility] [facility] [id number] [place] [address] 46140- 4913 Dec, COPD with exacerbation J44.1 ; BMI 45.0-49.9, adult Z68.42 ; SVETLANA treated with BiPAP G47.33 and Psychophysiological insomnia F51.04 [place] [id number] [place] [address] 06607- 2618 Dec, [place] [facility] [id number] [place] [address] 40713- 2542 Dec, Acute pain of left knee M25.562 ; Unspecified fall, initial encounter W19.XXXA ; Unspecified place in unspecified non-institutional (private ) residence as the place of occurrence of the external cause Y92.009 ; BMI 45.0- 49.9, adult Z68.42 and Severe persistent asthma with acute exacerbation J45.51 [place] [id number] [place] [address] 42167- 8714 Dec, Anxiety F41.9 and Psychophysiological insomnia F51.04 [facility] [facility] [id number] [place] [address] 08776- 0190 Nov, Psychophysiological insomnia F51.04 [facility] [address] 50416- 1266 Oct, [facility] [id number] [place] [address] 37422- 5908 Oct, Anxiety F41.9 [place] [address] 49807- 7209 Oct, [place] [address] 60173- 8947 Oct, Severe persistent asthma with acute exacerbation J45.51 ; Tobacco abuse Z72.0 and BMI 45.0-49.9, adult Z68.42 [place] [address] 18737- 9658 Oct, Psychophysiological insomnia F51.04 [place] [id number] [place] [address] 90272- 2841 Sep, Anxiety F41.9 [place] [address] 02988- 7017 Sep, Anxiety F41.9 and Habitual self-excoriation F42.4 [facility] [facility] [id number] [place] [address] 29960- 4367 Sep, Psychophysiological insomnia F51.04 [place] [id number] [place] [address] 94048- 6832 Aug, Anxiety F41.9 [facility] [facility] [id number] [place] [address] 77921- 5816 Aug, [address]45.909 [facility] [id number] [place] [address] 36242- 2209 Aug, Anxiety F41.9 [facility] [id number] [place] [address] 51939 -2931 Aug, Acute bronchitis, unspecified organism J20.9 [place] [facility] [id number] [place] [address] 95738- 9610 Aug, Psychophysiological insomnia F51.04 [facility] [facility] [id number] [place] [address] 85139- 4335 Jul, Therapeutic drug monitoring Z51.81 [place] [address] 28157- 2548 Jul, [place] [address] 80017- 3698 Jul, Habitual self-excoriation F42.4 [place] [address] 40720- 9127 Jul, [address] 56134- 0652 Jul, [place] [address] 93022- 2039 Jun, SVETLANA treated with BiPAP G47.33 ; Moderate persistent asthma without complication J45.40 ; Anxiety F41.9 ; Other obesity due to excess calories E66.09 ; Body mass index (BMI) of 40.0-44.9 in adult Z68.41 ; Psychophysiological insomnia F51.04 and Encounter for immunization Z23 [address] [id number] [place] [address] 23214- 2161 Jun, [place] [id number] [place] [address] 67329- 5646 Jun, Habitual self-excoriation F42.4 ; Adjustment disorder with depressed mood F43.21 ; Psychophysiological insomnia F51.04 and Eating disorder , unspecified F50.9 [place] [id number] [place] [address] 03418- 6891 Jun, Visit for TB skin test Z11.[address] 78292- 6618 Jun, Habitual self-excoriation F42.4 and Psychophysiological insomnia F51.04 [facility] [id number] [place] [address] 87936- 2352 Jun, Asthma J45.909 [facility] [id number] [place] [address] 77728- 8304 May, Asthma J45.909 [facility] [id number] [place] [address] 56212- 1606 May, [facility] [id number] [place] [address] 37798- 4520 May, Habitual self-excoriation F42.4 and Psychophysiological insomnia F51.04 [place] [id number] [place] [address] 33478- 1884 Apr, Habitual self-excoriation F42.4 ; Adjustment disorder with depressed mood F43.21 ; Psychophysiological insomnia F51.04 and Eating disorder , unspecified F50.9 [facility] [id number] [place] [address] 88279- 2150 Apr, 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 [id number] [place] [address] 76708- 7862 Mar, [facility] [id number] [place] [address] 76940- 7187 Mar, [facility] [id number] [place] [address] 81566- 6115 Mar, Anxiety [address]41.9 [facility] [id number] [place] [address] 04062- 1317 Feb, Asthma J45.909 [facility] [address] [place] [address] 55536- 1442 Feb, [place] [id number] [place] [address] 12205- 3860 Feb, Anxiety F41.9 [place] [id number] [place] [address] 47730- 7288 Feb, Asthma exacerbation J45.901 and Seasonal allergic rhinitis due to pollen J30.1 [place] [id number] [place] [address] 21200- 8538 January, [place] [address] 52728- 3634 January, Anxiety F41.9 [place] [id number] [place] [address] 07369- 9029 Dec, Therapeutic drug monitoring Z51.81 [place] [id number] [place] [address] 80014- 7319 Dec, Anxiety F41.9 and Asthma J45.909 [place] [id number] [place] [address] 56513- 3553 Nov, Asthma J45.909 [place] [id number] [place] [address] 05426- 0384 Nov, Anxiety F41.9 [place] [id number] [place] [address] 28883- 4696 Oct, Asthma exacerbation J45.901 ; Pain in right knee M25.561 ; Pain in left knee M25.562 and Open wound of eyebrow, left, subsequent encounter S01.102D [place] [id number] [place] [address] 02479- 6149 16 Oct, 2016 [facility] [id number] [place] [address] 97305 -9003 11 Oct, 2016 Other viral agents as the cause of diseases classified elsewhere B97.89 and Acute upper respiratory infection, unspecified J06.9 [place] [id number] [place] [address] 74910- 2982 10 Oct, 2016 [place] [id number] [place] [address] 55087- 8277 08 Oct, 2016 [place] [id number] [place] [address] 46131- 3238 02 Oct, 2016 Anxiety F41.9 [place] [address] 05521- 6534 Sep, [place] [address] 30773- 9186 Sep, SVETLANA treated with BiPAP G47.33 and Asthma J45.909 [place] [id number] [place] [address] 99958- 8665 Sep, SVETLANA treated with BiPAP G47.33 ; Obesity (BMI 30.0-34.9) E66.9 and Reactive depression F32.9 [place] [id number] [place] [address] 39758- 3620 Sep, Anxiety F41.9 [place] [id number] [place] [address] 87872- 9210 Aug, [place] [id number] [place] [address] 97054- 0395 Aug, Insomnia G47.00 [place] [id number] [place] [address] 42906- 6516 Aug, [place] [id number] [place] [address] 48278- 6604 Aug, SVETLANA treated with BiPAP G47.33 and On supplemental oxygen therapy Z99.81 [place] [id number] [place] [address] 46928- 3686 Jul, On supplemental oxygen therapy Z99.81 ; Obesity (BMI 30.0- 34.9) E66.9 and SVETLANA treated with BiPAP G47.33 [facility] [id number] [place] [address] 60878- 0656 17 Jul, 2016 Mucus plugging of bronchi J98.09 ; On supplemental oxygen therapy Z99.81 ; Acute midline thoracic back pain M54.6 and SVETLANA treated with BiPAP G47.33 [facility] [id number] [place] [address] 69612- 9[address], [address] [facility] [id number] [place] [address] 42260- 3515 Jul, [facility] [address] 53533- 4990 Jul, [facility] [id number] [place] [address] 27934- 4867 May, [facility] [address] 46831- 2320 May, [facility] [id number] [place] [address] 23186- 6318 Apr, [facility] [id number] [place] [address] 65105- 8677 Apr, [facility] [id number] [place] [address] 04531- 6532 Apr, Insomnia G47.00 ; Anemia D64.9 ; OCD (obsessive compulsive disorder) F42 ; Anxiety F41.9 ; Asthma J45.909 and Obesity (BMI 30.0-34.9) E66.9 [facility] [id number] [place] [address] 68235- 9685 Feb, [facility] [id number] [place] [address] 92029- 6758 Feb, Insomnia G47.00 [facility] [id number] [place] [address] 62693- 9177 Nov, [facility] [address], [place] [address]- 0400 [address], [address] [facility] [address] [place] [address] 41900- 7513 Nov, [facility] [address], [place] [address]- 4909 Nov, OCD (obsessive compulsive disorder) F42 ; Anxiety F41.9 ; Insomnia G47.00 ; Anemia D64.[address] [facility] [address] [place] [address] 50561- 9924 Nov, [facility] [id number] [place] [address] 10193- 1760 Oct, [facility] [address] [place] [address] 21058- 9569 Aug, OCD (obsessive compulsive disorder) F42 ; Chronic cellulitis L03.90 ; Anxiety F41.9 ; Insomnia G47.00 ; Anemia D64.[address] [facility] [address] [address]- 2277 Aug, [facility] [address] [place] [address] 70297- 5210 Jul, [facility] [address] [address]- 7243 Jul, OCD (obsessive compulsive disorder) F42 ; Chronic cellulitis L03.90 ; Anxiety F41.9 ; Insomnia G47.[address] [facility] [address] [address]- 4366 Dec, [facility] [id number] [place] [address] 23727- 8370 Dec, [facility] [address] [address] 3505 Aug, [facility] [address] [address] [place] [address]- 8543 Aug, [facility] [place] [facility] [address] [id number] [place] [address]- 4699 Aug, [facility] [place] [facility] [address] [id number] [place] [address]- 0084 Aug, [facility] [place] [facility] [address] [id number] [place] [address]- 0194 Aug, [facility] [place] [facility] [address] [id number] [place] [address]- 5267 Aug, [facility] [place] [facility] [address] [id number] [place] [address]- 2112 Aug, [facility] [place] [facility] [address] [id number] [place] [address]- 3997 Jul, [facility] [place] [facility] [address] [id number] [place] [address]- 8335 Jul, [facility] [place] [facility] [address] [id number] [place] [address]- 9161 Jul, [facility] [place] [facility] [address] [id number] [place] [address]- 2390 Jul, [facility] [place] [facility] [address] [id number] [place] [address]- 1915 Apr, [facility] [place] [facility] [address] [id number] [place] [address]- 1574 Apr, [facility] [place] [facility] [address] [id number] [place] [address]- 3898 Feb, [facility] [place] [facility] [address] [id number] [place] [address]- 1561 Feb, [facility] [place] [facility] [address] [id number] [place] [address]- 5634 Feb, [facility] [place] [facility] [address] [id number] [place] [address]- 6516 Feb, [facility] [place] [facility] [address] [id number] [place] [address]- 6304 January, [facility] [place] [facility] [address] [id number] [place] [address]- 0675 January, [facility] [place] [facility] [address] [id number] [place] [address]- 7366 January, [facility] [place] [facility] [address] [id number] [place] [address]- 5009 Dec, [facility] [place] [facility] [address] [id number] [place] [address]- 7411 Dec, [facility] [place] [facility] [address] [id number] [place] [address]- 0232 Dec, [facility] [place] [facility] [address] [id number] [place] [address]- 8905 Dec, [facility] [place] [facility] [address] [id number] [place] [address]- 8755 Nov, [facility] [place] [facility] [address] [id number] [place] [address]- 2428 Nov, [facility] [place] [facility] [address] [id number] [place] [address]- 7603 Nov, [facility] [place] [facility] [address] [id number] [place] [address]- 2603 Nov, [facility] [place] [facility] [address] [id number] [place] [address]- 3748 Nov, [facility] [place] [facility] [address] [id number] [place] [address]- 6428 Nov, [facility] [place] [facility] [address] [id number] [place] [address]- 5512 Oct, [facility] [place] [facility] [address] [id number] [place] [address]- 3893 Oct, [facility] [place] [facility] [address] [id number] [place] [address]- 1562 Oct, [facility] [place] [facility] [address] [id number] [place] [address]- 3836 Oct, [facility] [place] [facility] [address] [id number] [place] [address]- 3176 Oct, [facility] [place] [facility] [address] [id number] [place] [address]- 8296 Oct, [facility] [place] [facility] [address] [id number] [place] [address]- 0375 Oct, [facility] [place] [facility] [address] [id number] [place] [address]- 6266 Oct, [facility] [place] [facility] [address] [id number] [place] [address]- 4796 Oct, [facility] [place] [facility] [address] [facility] [id number] [place] [address]- 9647 Oct, [facility] [place] [facility] [address] [id number] [place] [address]- 8977 Oct, [facility] [place] [facility] [address] [facility] [id number] [place] [address]- 4767 Oct, [facility] [place] [facility] [address] [facility] [id number] [place] [address]- 1276 Sep, [facility] [place] [facility] [address] [id number] [place] [address]- 0827 Sep, [facility] [place] [facility] [address] [id number] [place] [address]- 2545 Sep, [facility] [place] [facility] [address] [id number] [place] [address]- 8969 Sep, [facility] [place] [facility] [address] [id number] [place] [address]- 2246 Aug, [facility] [place] [facility] [address] [id number] [place] [address] Aug, [facility] [address] [facility] [id number] [address] Aug, [facility] [address] [id number] [address] Aug, [facility] [address] [facility] [id number], [place] [address] Aug, [facility] [address] [facility] [id number], [place] [address] Aug, [facility] [address] [facility] [id number], [place] [address] Aug, IMMUNIZATIONS No Known Immunizations SOCIAL HISTORY Never Assessed REASON FOR VISIT Controlled Med Refill PLAN OF CARE VITAL SIGNS MEDICATIONS Unknown [...] History sepsis Hospitalization History Acute hypoxic resp distress--[facility] 07/28/16 Hospitalization History Denies any past psychiatric hospitalization
--- OUTSIDE RECORDS SUMMARY | 2018-10-07 10:24 | XMS REPORT ---
Author Author BRICE RAMIREZ Organization [facility] Address [address] [place] [address] Care Team Providers Care Manager Graphic Name Role Phone BRICE RAMIREZ Unavailable PROBLEMS Type Condition ICD9-CM Code RPO08-WN Code Onset Dates Condition Status SNOMED Code Problem Psychophysiological insomnia F51.04 Active 187762367 Problem Eating disorder, unspecified F50.9 Active 74688755 Problem Adjustment disorder with depressed mood F43.21 Active 66614886 Problem COPD exacerbation J44.1 Active 858803145 Problem Insomnia G47.00 Active 606010230 Problem BMI 45.0-49.9, adult Z68.42 Active 885411621 Problem OCD (obsessive compulsive disorder) F42 Active 534994319 Problem Chronic cellulitis L03.90 Active 157946329 Problem Moderate persistent asthma without complication J45.40 Active 572503447 Problem Body mass index (BMI) of 40.0-44.9 in adult Z68.41 Active 875027005 Problem Severe persistent asthma with acute exacerbation J45.51 Active 990175642 Problem Other obesity due to excess calories E66.09 Active 89055846876366 Problem Obesity (BMI 30.0-34.9) E66.9 Active 447057468379102 Problem SVETLANA treated with BiPAP G47.33 Active 69439255 Problem Anxiety F41.9 Active 05331890 Problem Asthma J45.909 Active 686729858 Problem Iron deficiency anemia, unspecified iron deficiency anemia type D50.9 Active 99451737 Problem Asthma exacerbation J45.901 Active 155466803 Problem Reactive depression F32.9 Active 86085501 Problem Seasonal allergic rhinitis due to pollen J30.1 Active 18292953 Problem Other chronic pain G89.29 Active 88282030 Problem Habitual self-excoriation F42.4 Active 631460352 ALLERGIES No Information ENCOUNTERS Encounter Location Date Diagnosis [facility] [address] [address] May, [facility] [id number] [place] [address] 35095- 4982 Apr, [facility] [id number] [place] [address] 28462- 7449 Apr, [facility] [id number] [place] [address] 35742- 4995 Apr, Diarrhea, unspecified type R19.7 [facility] [id number] [place] [address] 61238- 4293 Apr, Diarrhea, unspecified type R19.7 [place] [id number] [place] [address] 30736- 0248 Apr, ROBINA (generalized anxiety disorder) F41.1 ; Moderate episode of recurrent major depressive disorder F33.1 ; Excoriation T14.8XXA ; Binge eating disorder F50.81 and BMI 45.0-49.9, adult Z68.42 [place] [id number] [place] [address] 59480- 8398 Mar, [facility] [address] [place] [address] 36528 -8681 Mar, Other specified bacterial agents as the cause of diseases classified elsewhere B96.89 ; Local infection of the skin and subcutaneous tissue, unspecified L08.9 ; Fever in other diseases R50.81 and BMI 50.0-59.9, adult Z68.43 [place] [address] [place] [address] 45133- 5938 Mar, Habitual self-excoriation F42.4 ; Anxiety F41.9 and Psychophysiological insomnia F51.04 [place] [address] [place] [address] 05226- 7483 Feb, [facility] [id number] [place] [address] 36943- 0550 Feb, Anxiety F41.9 and Psychophysiological insomnia F51.04 [place] [address] [place] [address] 57708- 8128 January, Acute pain of left knee M25.562 and BMI 50.0-59.9, adult Z68.43 [place] [address] [place] [address] 23910- 8189 January, [place] [address] 76576- 2674 January, COPD exacerbation J44.1 and Severe persistent asthma with acute exacerbation J45.51 [place] [facility] [id number] [place] [address] 39838- 8493 January, Anxiety F41.9 and Psychophysiological insomnia F51.04 [place] [address] [place] [address] 28016- 4755 January, COPD exacerbation J44.1 and Left medial knee pain M25.562 [place] [facility] [id number] [place] [address] 00697- 6396 Dec, COPD with exacerbation J44.1 ; BMI 45.0-49.9, adult Z68.42 ; SVETLANA treated with BiPAP G47.33 and Psychophysiological insomnia F51.04 [place] [address] [place] [address] 07936- 8852 Dec, [place] [id number] [place] [address] 86412- 9036 Dec, Acute pain of left knee M25.562 ; Unspecified fall, initial encounter W19.XXXA ; Unspecified place in unspecified non-institutional (private ) residence as the place of occurrence of the external cause Y92.009 ; BMI 45.0- 49.9, adult Z68.42 and Severe persistent asthma with acute exacerbation J45.51 [place] [address] [place] [address] 88403- 9229 Dec, Anxiety F41.9 and Psychophysiological insomnia F51.04 [place] [id number] [place] [address] 28676- 9050 Nov, Psychophysiological insomnia F51.04 [facility] [address] 49994- 3684 Oct, [facility] [id number] [place] [address] 35665- 1520 Oct, Anxiety F41.9 [place] [address] 20267- 2360 Oct, [place] [address] 62273- 0863 Oct, Severe persistent asthma with acute exacerbation J45.51 ; Tobacco abuse Z72.0 and BMI 45.0-49.9, adult Z68.42 [place] [address] 22780- 6855 Oct, Psychophysiological insomnia F51.04 [place] [id number] [place] [address] 66938- 8035 Sep, Anxiety F41.9 [place] [address] 46997- 7786 Sep, Anxiety F41.9 and Habitual self-excoriation F42.4 [place] [id number] [place] [address] 76555- 6330 Sep, Psychophysiological insomnia F51.04 [place] [id number] [place] [address] 01626- 7367 Aug, Anxiety F41.9 [place] [id number] [place] [address] 01460- 5327 Aug, Asthma J45.909 [facility] [id number] [place] [address] 72354- 5110 Aug, Anxiety F41.9 [facility] [id number] [place] [address] 43559 -2909 Aug, Acute bronchitis, unspecified organism J20.9 [place] [id number] [place] [address] 05718- 0394 Aug, Psychophysiological insomnia F51.04 [place] [id number] [place] [address] 64332- 0530 Jul, Therapeutic drug monitoring Z51.81 [place] [address] 28884- 9035 Jul, [place] [address] 93109- 6277 Jul, Habitual self-excoriation F42.4 [place] [address] 15031- 9749 Jul, [address] 36403- 9046 Jul, [place] [address] 87073- 5638 Jun, SVETLANA treated with BiPAP G47.33 ; Moderate persistent asthma without complication J45.40 ; Anxiety F41.9 ; Other obesity due to excess calories E66.09 ; Body mass index (BMI) of 40.0-44.9 in adult Z68.41 ; Psychophysiological insomnia F51.04 and Encounter for immunization Z23 [place] [id number] [place] [address] 37015- 5179 Jun, [place] [id number] [place] [address] 89303- 8278 Jun, Habitual self-excoriation F42.4 ; Adjustment disorder with depressed mood F43.21 ; Psychophysiological insomnia F51.04 and Eating disorder , unspecified F50.9 [place] [id number] [place] [address] 58166- 4234 Jun, Visit for TB skin test Z11.[address] 22874- 2358 Jun, Habitual self-excoriation F42.4 and Psychophysiological insomnia F51.04 [facility] [id number] [place] [address] 76149- 1799 Jun, Asthma J45.909 [facility] [address] [place] [address] 81747- 2027 May, Asthma J45.909 [facility] [id number] [place] [address] 35429- 7116 May, [facility] [id number] [place] [address] 85799- 4714 May, Habitual self-excoriation F42.4 and Psychophysiological insomnia F51.04 [place] [id number] [place] [address] 96173- 2977 Apr, Habitual self-excoriation F42.4 ; Adjustment disorder with depressed mood F43.21 ; Psychophysiological insomnia F51.04 and Eating disorder , unspecified F50.9 [facility] [address] [place] [address] 89550- 1230 Apr, [facility] [id number] [place] [address] 88336- 2353 Apr, Habitual self-excoriation F42.4 ; Adjustment disorder with depressed mood F43.21 ; Psychophysiological insomnia F51.04 and 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 [facility] [address] [place] [address] 66423- 2599 Mar, [facility] [id number] [place] [address] 37370- 3570 Mar, [facility] [id number] [place] [address] 83729- 1383 Mar, Anxiety F41.9 [facility] [address] [place] [address] 50430- 4711 Feb, Asthma J45.909 [facility] [address] [place] [address] 82014- 5904 Feb, [place] [id number] [place] [address] 04551- 0022 Feb, Anxiety F41.9 [place] [id number] [place] [address] 66180- 6458 Feb, Asthma exacerbation J45.901 and Seasonal allergic rhinitis due to pollen J30.1 [place] [id number] [place] [address] 05759- 6982 January, [place] [address] 26598- 2885 January, Anxiety F41.9 [place] [id number] [place] [address] 20870- 4351 Dec, Therapeutic drug monitoring Z51.81 [place] [id number] [place] [address] 23239- 5693 Dec, Anxiety F41.9 and Asthma J45.909 [place] [id number] [place] [address] 27195- 6194 Nov, Asthma J45.909 [place] [id number] [place] [address] 30949- 3412 Nov, Anxiety F41.9 [place] [id number] [place] [address] 49898- 5316 Oct, Asthma exacerbation J45.901 ; Pain in right knee M25.561 ; Pain in left knee M25.562 and Open wound of eyebrow, left, subsequent encounter S01.102D [place] [id number] [place] [address] 89713- 8011 16 Oct, 2016 [facility] [address] [place] [address] 40375 -6393 11 Oct, 2016 Other viral agents as the cause of diseases classified elsewhere B97.89 and Acute upper respiratory infection, unspecified J06.9 [place] [id number] [place] [address] 22429- 1445 10 Oct, 2016 [place] [id number] [place] [address] 95274- 3110 08 Oct, 2016 [place] [id number] [place] [address] 05713- 3126 02 Oct, 2016 Anxiety F41.9 [place] [address] 35886- 2003 Sep, [place] [address] 82670- 6368 Sep, SVETLANA treated with BiPAP G47.33 and Asthma J45.909 [place] [id number] [place] [address] 51097- 5545 Sep, SVETLANA treated with BiPAP G47.33 ; Obesity (BMI 30.0-34.9) E66.9 and Reactive depression F32.9 [place] [id number] [place] [address] 22990- 9958 Sep, Anxiety F41.9 [place] [id number] [place] [address] 04374- 2548 Aug, [place] [id number] [place] [address] 23534- 9258 Aug, Insomnia G47.00 [place] [id number] [place] [address] 19868- 2325 Aug, [place] [id number] [place] [address] 22860- 2940 Aug, SVETLANA treated with BiPAP G47.33 and On supplemental oxygen therapy Z99.81 [place] [id number] [place] [address] 17530- 3083 Jul, On supplemental oxygen therapy Z99.81 ; Obesity (BMI 30.0- 34.9) E66.9 and SVETLANA treated with BiPAP G47.33 [facility] [id number] [place] [address] 72776- 6839 17 Jul, 2016 Mucus plugging of bronchi J98.09 ; On supplemental oxygen therapy Z99.81 ; Acute midline thoracic back pain M54.6 and SVETLANA treated with BiPAP G47.33 [facility] [id number] [place] [address] 59676- 9058 16 Jul, 2016 [facility] [id number] [place] [address] 06997- 3415 Jul, [facility] [address] 69341- 0878 Jul, [facility] [id number] [place] [address] 00676- 2988 May, [facility] [address] 98925- 7785 May, [facility] [id number] [place] [address] 36286- 5167 Apr, [facility] [id number] [place] [address] 83405- 6859 Apr, [facility] [id number] [place] [address] 17890- 3537 Apr, Insomnia G47.00 ; Anemia D64.9 ; OCD (obsessive compulsive disorder) F42 ; Anxiety F41.9 ; Asthma J45.909 and Obesity (BMI 30.0-34.9) E66.9 [facility] [id number] [place] [address] 91975- 4556 Feb, [facility] [id number] [place] [address] 51713- 3626 Feb, Insomnia G47.00 [facility] [id number] [place] [address] 56371- 4021 Nov, [facility] [address] [address]- 5937 15 Nov, 2015 [facility] [address] [place] [address] 97468- 6557 Nov, [facility] [address], [place] [address]- 2765 Nov, OCD (obsessive compulsive disorder) F42 ; Anxiety F41.9 ; Insomnia G47.00 ; Anemia D64.9 and Asthma J45.909 [facility] [address] [place] [address] 49361- 4008 Nov, [facility] [id number] [place] [address] 38848- 8117 Oct, [facility] [address] [place] [address] 32688- 9998 Aug, OCD (obsessive compulsive disorder) F42 ; Chronic cellulitis L03.90 ; Anxiety F41.9 ; Insomnia G47.00 ; Anemia D64.9 and Asthma J45.909 [facility] [address] [address]- 8273 Aug, [facility] [address] [place] [address] 62904- 7401 Jul, [facility] [address] [address]- 8415 Jul, OCD (obsessive compulsive disorder) F42 ; Chronic cellulitis L03.90 ; Anxiety F41.9 ; Insomnia G47.00 and Anemia D64.9 [facility] [address] [address]- 5305 Dec, [facility] [id number] [place] [address] 56378- 9949 Dec, [facility] [address] [place] [address]- 6330 Aug, [facility] [address] [address] [place] [address]- 7963 Aug, [facility] [place] [facility] [address] [id number] [place] [address]- 9194 Aug, [facility] [place] [facility] [address] [id number] [place] [address]- 9758 Aug, [facility] [place] [facility] [address] [id number] [place] [address]- 4244 Aug, [facility] [place] [facility] [address] [id number] [place] [address]- 7030 Aug, [facility] [place] [facility] [address] [id number] [place] [address]- 0826 Aug, [facility] [place] [facility] [address] [id number] [place] [address]- 3856 Jul, [facility] [place] [facility] [address] [id number] [place] [address]- 2646 Jul, [facility] [place] [facility] [address] [id number] [place] [address]- 5778 Jul, [facility] [place] [facility] [address] [id number] [place] [address]- 3938 Jul, [facility] [place] [facility] [address] [id number] [place] [address]- 7647 Apr, [facility] [place] [facility] [address] [id number] [place] [address]- 8948 Apr, [facility] [place] [facility] [address] [id number] [place] [address]- 1613 Feb, [facility] [place] [facility] [address] [id number] [place] [address]- 3252 Feb, [facility] [place] [facility] [address] [id number] [place] [address]- 3768 Feb, [facility] [place] [facility] [address] [id number] [place] [address]- 2253 Feb, [facility] [place] [facility] [address] [id number] [place] [address]- 3416 January, [facility] [place] [facility] [address] [id number] [place] [address]- 5688 January, [facility] [place] [facility] [address] [id number] [place] [address]- 0166 January, [facility] [place] [facility] [address] [id number] [place] [address]- 0193 Dec, [facility] [place] [facility] [address] [id number] [place] [address]- 8580 Dec, [facility] [place] [facility] [address] [id number] [place] [address]- 5088 Dec, [facility] [place] [facility] [address] [id number] [place] [address]- 0320 Dec, [facility] [place] [facility] [address] [id number] [place] [address]- 6239 Nov, [facility] [place] [facility] [address] [id number] [place] [address]- 2002 Nov, [facility] [place] [facility] [address] [id number] [place] [address]- 0109 Nov, [facility] [place] [facility] [address] [id number] [place] [address]- 5278 Nov, [facility] [place] [facility] [address] [id number] [place] [address]- 6384 Nov, [facility] [place] [facility] [address] [id number] [place] [address]- 4457 Nov, [facility] [place] [facility] [address] [id number] [place] [address]- 1783 Oct, [facility] [place] [facility] [address] [id number] [place] [address]- 7058 Oct, [facility] [place] [facility] [address] [id number] [place] [address]- 4386 Oct, [facility] [place] [facility] [address] [id number] [place] [address]- 2506 Oct, [facility] [place] [facility] [address] [id number] [place] [address]- 0336 Oct, [facility] [place] [facility] [address] [id number] [place] [address]- 2026 Oct, [facility] [place] [facility] [address] [id number] [place] [address]- 7479 Oct, [facility] [place] [facility] [address] [id number] [place] [address]- 3966 Oct, [facility] [place] [facility] [address] [id number] [place] [address]- 4196 Oct, [facility] [place] [facility] [address] [facility] [id number] [place] [address]- 4124 Oct, [facility] [place] [facility] [address] [id number] [place] [address]- 0097 Oct, [facility] [place] [facility] [address] [facility] [id number] [place] [address]- 5231 Oct, [facility] [place] [facility] [address] [facility] [id number] [place] [address]- 3339 Sep, [facility] [place] [facility] [address] [id number] [place] [address]- 8420 Sep, [facility] [place] [facility] [address] [id number] [place] [address]- 254 Sep, [facility] [place] [facility] [address] [id number] [place] [address]- 6634 Sep, [facility] [place] [facility] [address] [id number] [place] [address]- 7764 Aug, [facility] [place] [facility] [address] [id number] [place] [address]- 8503 Aug, [facility] [address] [facility] [id number], [place] [address]- 7527 Aug, [facility] [address] [facility] [id number], [place] [address]- 4921 Aug, [facility] [address] [facility] [id number], [place] [address]- 5695 Aug, [facility] [address] [facility] [id number], [place] [address]- 1095 Aug, [facility] [address] [facility] [id number], [place] [address]- 7279 Aug, IMMUNIZATIONS No Known Immunizations SOCIAL HISTORY Never Assessed REASON FOR VISIT PALS-ventolin/symbicort PLAN OF CARE VITAL SIGNS MEDICATIONS Medication Instructions Dosage Frequency Start Date End Date Duration Status Ventolin HFA 90 MCG/ACT Inhalation every 4 hrs 2 puffs as needed 4h Active Symbicort 160-4.5 MCG/ACT Inhalation Twice a day 2 puffs 12h January, Active RESULTS No Results PROCEDURES No Known procedures INSTRUCTIONS MEDICATIONS ADMINISTERED No Known Medications MEDICAL (GENERAL) HISTORY Type Description Date Medical History asthma Medical History anxiety Medical History gastric bypass 2001 Medical History anemia Medical History sleep apnea treated with biPAP Surgical History gastric bypass 2001 Hospitalization History surgery Hospitalization History anemia Hospitalization History sepsis Hospitalization History Acute hypoxic resp distress--[facility] 07/28/16 Hospitalization History Denies any past psychiatric hospitalization
--- OUTSIDE RECORDS SUMMARY | 2018-10-07 10:24 | XMS REPORT ---
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 Name Role Phone BRICE RAMIREZ Unavailable PROBLEMS Type Condition ICD9-CM Code [id number] Code Onset Dates Condition Status SNOMED Code Problem Psychophysiological insomnia F51.04 Active 979182626 Problem Eating disorder, unspecified F50.9 Active 91648086 Problem Adjustment disorder with depressed mood F43.21 Active 81529092 Problem COPD exacerbation J44.1 Active 435237476 Problem Insomnia G47.00 Active 964303766 Problem BMI 45.0-49.9, adult Z68.42 Active 656339408 Problem OCD (obsessive compulsive disorder) F42 Active 690130078 Problem Chronic cellulitis L03.90 Active 911709938 Problem Moderate persistent asthma without complication J45.40 Active 256276464 Problem Body mass index (BMI) of 40.0-44.9 in adult Z68.41 Active 300303041 Problem Severe persistent asthma with acute exacerbation J45.51 Active 410522545 Problem Other obesity due to excess calories E66.09 Active 96141472712093 Problem Obesity (BMI 30.0-34.9) E66.9 Active 884722787547823 Problem SVETLANA treated with BiPAP G47.33 Active 22864877 Problem Anxiety F41.9 Active 38204539 Problem Asthma J45.909 Active 329926062 Problem Iron deficiency anemia, unspecified iron deficiency anemia type D50.9 Active 14485450 Problem Asthma exacerbation J45.901 Active 197502498 Problem Reactive depression F32.9 Active 38223036 Problem Seasonal allergic rhinitis due to pollen J30.1 Active 84670546 Problem Other chronic pain G89.29 Active 00567044 Problem Habitual self-excoriation F42.4 Active 865656373 ALLERGIES No Information ENCOUNTERS Encounter Location Date Diagnosis [facility] [address] [address] May, [facility] [address] [place] [address] 23266- 1927 Apr, [facility] [id number] [place] [address] 97732- 3225 Apr, [facility] [id number] [place] [address] 93983- 9658 Apr, Diarrhea, unspecified type R19.7 [facility] [id number] [place] [address] 64952- 3008 Apr, Diarrhea, unspecified type R19.7 [place] [id number] [place] [address] 75538- 9302 Apr, ROBINA (generalized anxiety disorder) F41.1 ; Moderate episode of recurrent major depressive disorder F33.1 ; Excoriation T14.8XXA ; Binge eating disorder F50.81 and BMI 45.0-49.9, adult Z68.42 [place] [facility] [id number] [place] [address] 59738- 5835 Mar, [facility] [address] [place] [address] 24771 -4339 Mar, Other specified bacterial agents as the cause of diseases classified elsewhere B96.89 ; Local infection of the skin and subcutaneous tissue, unspecified L08.9 ; Fever in other diseases R50.81 and BMI 50.0-59.9, adult Z68.43 [place] [address] [place] [address] 08216- 0478 Mar, Habitual self-excoriation F42.4 ; Anxiety F41.9 and Psychophysiological insomnia F51.04 [place] [address] [place] [address] 13826- 5067 Feb, [facility] [address] [place] [address] 13196- 3485 Feb, Anxiety F41.9 and Psychophysiological insomnia F51.04 [place] [address] [place] [address] 39012- 9514 January, Acute pain of left knee M25.562 and BMI 50.0-59.9, adult Z68.43 [place] [address] [place] [address] 92374- 7979 January, [place] [address] 33348- 3461 January, COPD exacerbation J44.1 and Severe persistent asthma with acute exacerbation J45.51 [facility] [id number] [place] [address] 33450- 8668 January, Anxiety F41.9 and Psychophysiological insomnia F51.04 [place] [address] [place] [address] 49928- 1398 January, COPD exacerbation J44.1 and Left medial knee pain M25.562 [place] [facility] [id number] [place] [address] 31997- 3183 Dec, COPD with exacerbation J44.1 ; BMI 45.0-49.9, adult Z68.42 ; SVETLANA treated with BiPAP G47.33 and Psychophysiological insomnia F51.04 [place] [address] [place] [address] 64368- 2721 Dec, [facility] [id number] [place] [address] 58401- 2950 Dec, Acute pain of left knee M25.562 ; Unspecified fall, initial encounter W19.XXXA ; Unspecified place in unspecified non-institutional (private ) residence as the place of occurrence of the external cause Y92.009 ; BMI 45.0- 49.9, adult Z68.42 and Severe persistent asthma with acute exacerbation J45.51 [place] [address] [place] [address] 48858- 5038 Dec, Anxiety F41.9 and Psychophysiological insomnia F51.04 [place] [id number] [place] [address] 20242- 1067 Nov, Psychophysiological insomnia F51.04 [facility] [address] 62404- 0148 Oct, [facility] [id number] [place] [address] 31164- 8516 Oct, Anxiety F41.9 [place] [address] 95060- 8072 Oct, [place] [address] 92481- 1975 Oct, Severe persistent asthma with acute exacerbation J45.51 ; Tobacco abuse Z72.0 and BMI 45.0-49.9, adult Z68.42 [place] [address] 13510- 0375 Oct, Psychophysiological insomnia F51.04 [place] [id number] [place] [address] 46716- 3282 Sep, Anxiety F41.9 [place] [address] 51684- 8793 Sep, Anxiety F41.9 and Habitual self-excoriation F42.4 [facility] [id number] [place] [address] 89950- 0514 Sep, Psychophysiological insomnia F51.04 [place] [id number] [place] [address] 50350- 2409 Aug, Anxiety F41.9 [facility] [id number] [place] [address] 28813- 5853 Aug, Asthma J45.909 [facility] [id number] [place] [address] 10942- 2175 Aug, Anxiety F41.9 [facility] [id number] [place] [address] 61710 -8121 Aug, Acute bronchitis, unspecified organism J20.9 [place] [id number] [place] [address] 53800- 8525 Aug, Psychophysiological insomnia F51.04 [facility] [id number] [place] [address] 63964- 5610 Jul, Therapeutic drug monitoring Z51.81 [place] [address] 43824- 6988 Jul, [place] [address] 94778- 8328 Jul, Habitual self-excoriation F42.4 [place] [address] 29874- 2768 Jul, [address] 18575- 0809 Jul, [place] [address] 66246- 7632 Jun, SVETLANA treated with BiPAP G47.33 ; Moderate persistent asthma without complication J45.40 ; Anxiety F41.9 ; Other obesity due to excess calories E66.09 ; Body mass index (BMI) of 40.0-44.9 in adult Z68.41 ; Psychophysiological insomnia F51.04 and Encounter for immunization Z23 [place] [id number] [place] [address] 05514- 1369 Jun, [place] [id number] [place] [address] 70533- 6136 Jun, Habitual self-excoriation F42.4 ; Adjustment disorder with depressed mood F43.21 ; Psychophysiological insomnia F51.04 and Eating disorder , unspecified F50.9 [place] [id number] [place] [address] 92409- 1102 Jun, Visit for TB skin test Z11.[address] 77251- 2003 Jun, Habitual self-excoriation F42.4 and Psychophysiological insomnia F51.04 [facility] [id number] [place] [address] 39627- 2679 Jun, Asthma J45.909 [facility] [address] [place] [address] 07371- 9020 May, Asthma J45.909 [facility] [id number] [place] [address] 69211- 2984 May, [facility] [id number] [place] [address] 65113- 7723 May, Habitual self-excoriation F42.4 and Psychophysiological insomnia F51.04 [place] [id number] [place] [address] 35515- 4981 Apr, Habitual self-excoriation F42.4 ; Adjustment disorder with depressed mood F43.21 ; Psychophysiological insomnia F51.04 and Eating disorder , unspecified F50.9 [facility] [address] [place] [address] 77194- 0650 Apr, [facility] [id number] [place] [address] 20435- 4051 Apr, Habitual self-excoriation F42.4 ; Adjustment disorder with depressed mood F43.21 ; Psychophysiological insomnia F51.04 and 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 [facility] [address] [place] [address] 01308- 5012 Mar, [facility] [id number] [place] [address] 16788- 9167 Mar, [facility] [id number] [place] [address] 84359- 0271 Mar, Anxiety F41.9 [facility] [address] [place] [address] 23586- 6230 Feb, Asthma J45.909 [facility] [address] [place] [address] 53318- 8542 Feb, [place] [id number] [place] [address] 26044- 9448 Feb, Anxiety F41.9 [place] [id number] [place] [address] 32320- 7864 Feb, Asthma exacerbation J45.901 and Seasonal allergic rhinitis due to pollen J30.1 [place] [id number] [place] [address] 31804- 1534 January, [place] [address] 33936- 2143 January, Anxiety F41.9 [place] [id number] [place] [address] 97085- 4355 Dec, Therapeutic drug monitoring Z51.81 [place] [facility] [id number] [place] [address] 25732- 6802 Dec, Anxiety F41.9 and Asthma J45.909 [place] [facility] [id number] [place] [address] 44561- 2337 Nov, Asthma J45.909 [place] [id number] [place] [address] 98752- 0933 Nov, Anxiety F41.9 [place] [id number] [place] [address] 68799- 7577 Oct, Asthma exacerbation J45.901 ; Pain in right knee M25.561 ; Pain in left knee M25.562 and Open wound of eyebrow, left, subsequent encounter S01.102D [place] [id number] [place] [address] 14449- 2260 16 Oct, 2016 [facility] [address] [place] [address] 46246 -6272 11 Oct, 2016 Other viral agents as the cause of diseases classified elsewhere B97.89 and Acute upper respiratory infection, unspecified J06.9 [place] [id number] [place] [address] 23992- 1762 10 Oct, 2016 [place] [id number] [place] [address] 22027- 3003 08 Oct, 2016 [place] [id number] [place] [address] 98828- 9887 02 Oct, 2016 Anxiety F41.9 [place] [address] 13760- 3945 Sep, [place] [address] 96018- 0581 Sep, SVETLANA treated with BiPAP G47.33 and Asthma J45.909 [place] [id number] [place] [address] 43425- 4992 Sep, SVETLANA treated with BiPAP G47.33 ; Obesity (BMI 30.0-34.9) E66.9 and Reactive depression F32.9 [place] [id number] [place] [address] 80433- 3217 Sep, Anxiety F41.9 [place] [id number] [place] [address] 42846- 4173 Aug, [place] [id number] [place] [address] 51219- 6674 Aug, Insomnia G47.00 [place] [id number] [place] [address] 05632- 4009 Aug, [place] [id number] [place] [address] 50587- 0708 Aug, SVETLANA treated with BiPAP G47.33 and On supplemental oxygen therapy Z99.81 [place] [id number] [place] [address] 63499- 9931 Jul, On supplemental oxygen therapy Z99.81 ; Obesity (BMI 30.0- 34.9) E66.9 and SVETLANA treated with BiPAP G47.33 [facility] [id number] [place] [address] 36058- 0645 17 Jul, 2016 Mucus plugging of bronchi J98.09 ; On supplemental oxygen therapy Z99.81 ; Acute midline thoracic back pain M54.6 and SVETLANA treated with BiPAP G47.33 [facility] [id number] [place] [address] 08591- 8077 16 Jul, 2016 [facility] [id number] [place] [address] 36534- 8327 Jul, [facility] [address] 15543- 5983 Jul, [facility] [id number] [place] [address] 07060- 1367 May, [facility] [address] 63472- 0247 May, [facility] [id number] [place] [address] 60330- 7761 Apr, [facility] [id number] [place] [address] 48335- 0021 Apr, [facility] [id number] [place] [address] 15450- 2164 Apr, Insomnia G47.00 ; Anemia D64.9 ; OCD (obsessive compulsive disorder) F42 ; Anxiety F41.9 ; Asthma J45.909 and Obesity (BMI 30.0-34.9) E66.9 [facility] [id number] [place] [address] 17840- 7370 Feb, [facility] [id number] [place] [address] 60093- 3956 Feb, Insomnia G47.00 [facility] [id number] [place] [address] 78347- 6539 Nov, [facility] [address] [address]- 0992 15 Nov, 2015 [facility] [address] [place] [address] 02709- 3394 Nov, [facility] [address], [place] [address]- 8599 Nov, OCD (obsessive compulsive disorder) F42 ; Anxiety F41.9 ; Insomnia G47.00 ; Anemia D64.9 and Asthma J45.909 [facility] [address] [place] [address] 89965- 4632 Nov, [facility] [id number] [place] [address] 98819- 1764 Oct, [facility] [address] [place] [address] 94996- 9099 Aug, OCD (obsessive compulsive disorder) F42 ; Chronic cellulitis L03.90 ; Anxiety F41.9 ; Insomnia G47.00 ; Anemia D64.9 and Asthma J45.909 [facility] [address], [place] [address]- 6285 Aug, [facility] [address] [place] [address] 98942- 7862 Jul, [facility] [address], [place] [address]- 6676 Jul, OCD (obsessive compulsive disorder) F42 ; Chronic cellulitis L03.90 ; Anxiety F41.9 ; Insomnia G47.00 and Anemia D64.9 [facility] [address], [place] [address]- 7664 Dec, [facility] [id number] [place] [address] 36351- 3289 Dec, [facility] [address], [place] [address]- 0686 Aug, [facility] [address] [address] [facility] [place] [address]- 5096 Aug, [facility] [place] [facility] [address] [id number] [place] [address]- 7160 Aug, [facility] [place] [facility] [address] [id number] [place] [address]- 4064 Aug, [facility] [place] [facility] [address] [id number] [place] [address]- 4521 Aug, [facility] [place] [facility] [address] [id number] [place] [address]- 4788 Aug, [facility] [place] [facility] [address] [id number] [place] [address]- 6326 Aug, [facility] [place] [facility] [address] [id number] [place] [address]- 2567 Jul, [facility] [place] [facility] [address] [id number] [place] [address]- 2980 Jul, [facility] [place] [facility] [address] [id number] [place] [address]- 5326 Jul, [facility] [place] [facility] [address] [id number] [place] [address]- 1452 Jul, [facility] [place] [facility] [address] [id number] [place] [address]- 4971 Apr, [facility] [place] [facility] [address] [id number] [place] [address]- 5646 Apr, [facility] [place] [facility] [address] [id number] [place] [address]- 2234 Feb, [facility] [place] [facility] [address] [id number] [place] [address]- 6610 Feb, [facility] [place] [facility] [address] [id number] [place] [address]- 9501 Feb, [facility] [place] [facility] [address] [id number] [place] [address]- 0813 Feb, [facility] [place] [facility] [address] [id number] [place] [address]- 5657 January, [facility] [place] [facility] [address] [id number] [place] [address]- 5667 January, [facility] [place] [facility] [address] [id number] [place] [address]- 4239 January, [facility] [place] [facility] [address] [id number] [place] [address]- 6909 Dec, [facility] [place] [facility] [address] [id number] [place] [address]- 6069 Dec, [facility] [place] [facility] [address] [id number] [place] [address]- 8962 Dec, [facility] [place] [facility] [address] [id number] [place] [address]- 2365 Dec, [facility] [place] [facility] [address] [id number] [place] [address]- 3327 Nov, [facility] [place] [facility] [address] [id number] [place] [address]- 5622 Nov, [facility] [place] [facility] [address] [id number] [place] [address]- 5546 Nov, [facility] [place] [facility] [address] [id number] [place] [address]- 5875 Nov, [facility] [place] [facility] [address] [id number] [place] [address]- 6485 Nov, [facility] [place] [facility] [address] [id number] [place] [address]- 8430 Nov, [facility] [place] [facility] [address] [id number] [place] [address]- 0249 Oct, [facility] [place] [facility] [address] [id number] [place] [address]- 9090 Oct, [facility] [place] [facility] [address] [id number] [place] [address]- 9811 Oct, [facility] [place] [facility] [address] [id number] [place] [address]- 3186 Oct, [facility] [place] [facility] [address] [id number] [place] [address]- 5636 Oct, [facility] [place] [facility] [address] [id number] [place] [address]- 1826 Oct, [facility] [place] [facility] [address] [id number] [place] [address]- 2860 Oct, [facility] [place] [facility] [address] [id number] [place] [address]- 4016 Oct, [facility] [place] [facility] [address] [id number] [place] [address]- 2076 Oct, [facility] [place] [facility] [address] [facility] [id number] [place] [address]- 5312 Oct, [facility] [place] [facility] [address] [id number] [place] [address]- 1027 Oct, [facility] [place] [facility] [address] [facility] [id number] [place] [address]- 5674 Oct, [facility] [place] [facility] [address] [facility] [id number] [place] [address]- 2486 Sep, [facility] [place] [facility] [address] [id number] [place] [address]- 4675 Sep, [facility] [place] [facility] [address] [id number] [place] [address]- 2541 Sep, [facility] [place] [facility] [address] [id number] [place] [address]- 9949 Sep, [facility] [place] [facility] [address] [id number] [place] [address]- 3542 Aug, [facility] [place] [facility] [address] [id number] [place] [address]- 4635 Aug, [facility] [address] [facility] [id number], [place] [address]- 9905 Aug, [facility] [address] [facility] [id number], [place] [address]- 9086 Aug, [facility] [address] [facility] [id number], [place] [address]- 0487 Aug, [facility] [address] [facility] [id number], [place] [address]- 5820 Aug, [facility] [address] [facility] [id number], [place] [address]- 7456 Aug, IMMUNIZATIONS No Known Immunizations SOCIAL HISTORY Never Assessed REASON FOR VISIT Controlled refill request PLAN OF CARE VITAL SIGNS MEDICATIONS Medication [...] History sepsis Hospitalization History Acute hypoxic resp distress--[facility] 07/28/16 Hospitalization History Denies any past psychiatric hospitalization
--- OUTSIDE RECORDS SUMMARY | 2018-10-07 10:25 | XMS REPORT ---
Author Author BRICE RAMIREZ Organization [facility] [place] Address [address] [place] [address] Care Team Providers Care Flight Instructor Name Role Phone BRICE RAMIREZ Unavailable PROBLEMS Type Condition ICD9-CM Code DVC19-YH Code Onset Dates Condition Status SNOMED Code Problem Psychophysiological insomnia F51.04 Active 465314403 Problem Eating disorder, unspecified F50.9 Active 61565742 Problem Adjustment disorder with depressed mood F43.21 Active 42218806 Problem COPD exacerbation J44.1 Active 021439284 Problem Insomnia G47.00 Active 131921521 Problem BMI 45.0-49.9, adult Z68.42 Active 844696051 Problem OCD (obsessive compulsive disorder) F42 Active 163196658 Problem Chronic cellulitis L03.90 Active 637322079 Problem Moderate persistent asthma without complication J45.40 Active 188567872 Problem Body mass index (BMI) of 40.0-44.9 in adult Z68.41 Active 857848284 Problem Severe persistent asthma with acute exacerbation J45.51 Active 765646174 Problem Other obesity due to excess calories E66.09 Active 01417767768713 Problem Obesity (BMI 30.0-34.9) E66.9 Active [id number] Problem SVETLANA treated with BiPAP G47.33 Active 72434002 Problem Anxiety F41.9 Active 00341811 Problem Asthma J45.909 Active 947463694 Problem Iron deficiency anemia, unspecified iron deficiency anemia type D50.9 Active 11960038 Problem Asthma exacerbation J45.901 Active 013143986 Problem Reactive depression F32.9 Active 62319493 Problem Seasonal allergic rhinitis due to pollen J30.1 Active 91031751 Problem Other chronic pain G89.29 Active 17129143 Problem Habitual self-excoriation F42.4 Active 836446091 ALLERGIES Substance Reaction Event Type Date Status Morphine Sulfate itching Drug Allergy January, Active ENCOUNTERS Encounter Location Date Diagnosis [facility] [place] [id number] [address] May, [facility] [place] [address] [address] Apr, [facility] [place] [address] [address] Apr, [facility] [place] [id number] [place] [address] 65682- 0324 Apr, Diarrhea, unspecified type R19.7 [facility] [place] [address] [address] Apr, Diarrhea, unspecified type R19.7 [facility] [place] [id number] [place] [address] 93045- 0024 Apr, ROBINA (generalized anxiety disorder) F41.1 ; Moderate episode of recurrent major depressive disorder F33.1 ; Excoriation T14.8XXA ; Binge eating disorder F50.81 and BMI 45.0-49.9, adult Z68.42 [facility] [place] [address] [address] Mar, [facility] [address] [address] Mar, Other specified bacterial agents as the cause of diseases classified elsewhere B96.89 ; Local infection of the skin and subcutaneous tissue, unspecified L08.9 ; Fever in other diseases R50.81 and BMI 50.0-59.9, adult Z68.43 [facility] [place] [id number] [address] Mar, Habitual self-excoriation F42.4 ; Anxiety F41.9 and Psychophysiological insomnia F51.04 [facility] [place] [address] [address] Feb, [facility] [place] [address] [address] 8[address] Feb, Anxiety F41.9 and Psychophysiological insomnia F51.04 [facility] [id number] [place] [address] 64892- 0772 January, Acute pain of left knee M25.562 and BMI 50.0-59.9, adult Z68.43 [facility] [id number] [place] [address] 03941- 3614 January, [place] [address] [address] January, COPD exacerbation J44.1 and Severe persistent asthma with acute exacerbation J45.51 [facility] [address] 54665- 3250 January, Anxiety F41.9 and Psychophysiological insomnia F51.04 [facility] [id number] [place] [address] 47272- 7564 January, COPD exacerbation J44.1 and Left medial knee pain M25.562 [facility] [facility] [id number] [place] [address] 99563- 3196 Dec, COPD with exacerbation J44.1 ; BMI 45.0-49.9, adult Z68.42 ; SVETLANA treated with BiPAP G47.33 and Psychophysiological insomnia F51.04 [facility] [id number] [place] [address] 93503- 9797 Dec, [facility] [facility] [id number] [place] [address] 13978- 4792 Dec, Acute pain of left knee M25.562 ; Unspecified fall, initial encounter W19.XXXA ; Unspecified place in unspecified non-institutional (private ) residence as the place of occurrence of the external cause Y92.009 ; BMI 45.0- 49.9, adult Z68.42 and Severe persistent asthma with acute exacerbation J45.51 [place] [id number] [place] [address] 25989- 6006 Dec, Anxiety F41.9 and Psychophysiological insomnia F51.04 [facility] [place] [id number] [place] [address] 37613- 8271 Nov, Psychophysiological insomnia F51.04 [facility] [place] [id number] [place] [address] 23184- 5494 Oct, [facility] [place] [id number] [place] [address] 85161- 8668 Oct, Anxiety F41.9 [facility] [place] [id number] [place] [address] 84135- 2271 Oct, [place] [address] 19463- 8373 Oct, Severe persistent asthma with acute exacerbation J45.51 ; Tobacco abuse Z72.0 and BMI 45.0-49.9, adult Z68.42 [facility] [facility] [id number] [place] [address] 77897- 7960 Oct, Psychophysiological insomnia F51.04 [facility] [place] [id number] [place] [address] 61875- 4052 Sep, Anxiety F41.9 [facility] [id number] [place] [address] 80025- 2534 Sep, Anxiety F41.9 and Habitual self-excoriation F42.4 [facility] [facility] [id number] [place] [address] 93409- 3719 Sep, Psychophysiological insomnia F51.04 [facility] [place] [id number] [place] [address] 97174- 6065 Aug, Anxiety F41.9 [facility] [facility] [id number] [place] [address] 64577- 3306 Aug, Asthma J45.909 [facility] [place] [id number] [place] [address] 21682- 7954 Aug, Anxiety F41.9 [facility] [id number] [place] [address] 47715 -6122 Aug, Acute bronchitis, unspecified organism J20.9 [place] [address] 21993- 9021 Aug, Psychophysiological insomnia F51.04 [place] [id number] [place] [address] 92934- 4447 Jul, Therapeutic drug monitoring Z51.81 [place] [address] 87733- 4730 Jul, [place] [address] 36260- 7344 Jul, Habitual self-excoriation F42.4 [place] [address] 27934- 5397 08 Jul, 2017 [place] [address] 96669- 6479 Jul, [facility] [facility] [id number] [place] [address] 99524- 0359 Jun, SVETLANA treated with BiPAP G47.33 ; Moderate persistent asthma without complication J45.40 ; Anxiety F41.9 ; Other obesity due to excess calories E66.09 ; Body mass index (BMI) of 40.0-44.9 in adult Z68.41 ; Psychophysiological insomnia F51.04 and Encounter for immunization Z23 [place] [id number] [place] [address] 42426- 5520 Jun, [facility] [facility] [id number] [place] [address] 67456- 2296 Jun, Habitual self-excoriation F42.4 ; Adjustment disorder with depressed mood F43.21 ; Psychophysiological insomnia F51.04 and Eating disorder , unspecified F50.9 [facility] [id number] [place] [address] 71973- 3176 Jun, Visit for TB skin test Z11.1 [place] [address] [address]- 7791 Jun, Habitual self-excoriation F42.4 and Psychophysiological insomnia F51.04 [facility] [place] [address] [place] [address] 66037- 7147 Jun, Asthma J45.909 [facility] [place] [address] [place] [address] 10742- 7064 May, Asthma J45.909 [facility] [place] [id number] [place] [address] 41350- 3702 May, [place] [id number] [place] [address] 19823- 4784 May, Habitual self-excoriation F42.4 and Psychophysiological insomnia F51.04 [place] [address] [place] [address] 95361- 6788 Apr, Habitual self-excoriation F42.4 ; Adjustment disorder with depressed mood F43.21 ; Psychophysiological insomnia F51.04 and Eating disorder , unspecified F50.9 [place] [id number] [place] [address] 67213- 9956 Apr, [place] [id number] [place] [address] 71307- 3965 Apr, Habitual self-excoriation F42.4 ; Adjustment disorder with depressed mood F43.21 ; Psychophysiological insomnia F51.04 and Other fpc (current) drug therapy Z79.899 [facility] [place] [address] [place] [address] 85886- 7168 Mar, [facility] [place] [id number] [place] [address] 38545- 2110 Mar, [facility] [place] [id number] [place] [address] 59987- 9973 Mar, Anxiety F41.9 [facility] [place] [id number] [place] [address] 32184- 4470 Feb, Asthma J45.909 [facility] [place] [id number] [place] [address] 65936- 1526 Feb, [place] [address] 97057- 0136 Feb, Anxiety F41.9 [place] [address] 66317- 4023 Feb, Asthma exacerbation J45.901 and Seasonal allergic rhinitis due to pollen J30.1 [place] [address] 35909- 9191 January, [place] [address] 30457- 4032 January, Anxiety F41.9 [place] [address] 95057- 9731 Dec, Therapeutic drug monitoring Z51.81 [place] [address] 67132- 7338 Dec, Anxiety F41.9 and Asthma J45.909 [place] [address] 93181- 0648 Nov, Asthma J45.909 [place] [id number] [place] [address] 69938- 4950 Nov, Anxiety F41.9 [place] [address] 05499- 5338 Oct, Asthma exacerbation J45.901 ; Pain in right knee M25.561 ; Pain in left knee M25.562 and Open wound of eyebrow, left, subsequent encounter S01.102D [facility] [place] [id number] [place] [address] 43827- 3042 16 Oct, 2016 [facility] [id number] [place] [address] 85612 -2309 Oct, Other viral agents as the cause of diseases classified elsewhere B97.89 and Acute upper respiratory infection, unspecified J06.9 [place] [address] 13710- 6661 10 Oct, 2016 [place] [id number] [place] [address] 98835- 2977 Oct, [place] [address] 93944- 1732 Oct, Anxiety F41.9 [place] [address] 15117- 2211 Sep, [place] [address] 06338- 1442 Sep, SVETLANA treated with BiPAP G47.33 and Asthma J45.909 [place] [address] 46432- 9762 Sep, SVETLANA treated with BiPAP G47.33 ; Obesity (BMI 30.0-34.9) E66.9 and Reactive depression F32.9 [place] [address] 41294- 8371 Sep, Anxiety F41.9 [place] [id number] [place] [address] 13465- 7937 Aug, [place] [id number] [place] [address] 89746- 9189 Aug, Insomnia G47.00 [place] [id number] [place] [address] 24134- 6049 Aug, [place] [address] 93951- 4312 Aug, SVETLANA treated with BiPAP G47.33 and On supplemental oxygen therapy Z99.81 [place] [address] 15746- 6939 Jul, On supplemental oxygen therapy Z99.81 ; Obesity (BMI 30.0- 34.9) E66.9 and SVETLANA treated with BiPAP G47.33 [facility] [place] [id number] [place] [address] 61766- 5438 Jul, 2016 Mucus plugging of bronchi J98.09 ; On supplemental oxygen therapy Z99.81 ; Acute midline thoracic back pain M54.6 and SVETLANA treated with BiPAP G47.33 [facility] [place] [address] 01804- 3564 Jul, [facility] [place] [id number] [place] [address] 17559- 4487 Jul, [facility] [place] [address] 02911- 0660 Jul, [facility] [place] [address] 11552- 9681 May, [facility] [place] [id number] [place] [address] 92586- 7414 May, [facility] [place] [id number] [place] [address] 10744- 7641 Apr, [facility] [place] [id number] [place] [address] 76521- 9392 Apr, [facility] [place] [id number] [place] [address] 82923- 3030 Apr, Insomnia G47.00 ; Anemia D64.9 ; OCD (obsessive compulsive disorder) F42 ; Anxiety F41.9 ; Asthma J45.909 and Obesity (BMI 30.0-34.9) E66.9 [facility] [place] [id number] [place] [address] 86542- 3702 Feb, [facility] [place] [id number] [place] [address] 86621- 9309 Feb, Insomnia G47.00 [facility] [place] [address] 41365- 6274 17 Nov, 2015 [facility] [place] [address] [address]- 6060 15 Nov, 2015 [facility] [place] [id number] [place] [address] 87926- 5842 15 Nov, 2015 [facility] [place] [address] [place] [address] 88861- 3255 14 Nov, 2015 OCD (obsessive compulsive disorder) F42 ; Anxiety F41.9 ; Insomnia G47.00 ; Anemia D64.9 and Asthma J45.909 [facility] [place] [id number] [place] [address] 92444- 1422 Nov, [facility] [place] [id number] [place] [address] 02223- 1155 Oct, [facility] [place] [id number] [place] [address] 17346- 8702 Aug, OCD (obsessive compulsive disorder) F42 ; Chronic cellulitis L03.90 ; Anxiety F41.9 ; Insomnia G47.00 ; Anemia D64.9 and Asthma J45.909 [facility] [place] [id number] [place] [address] 79193- 2782 Aug, [facility] [place] [id number] [place] [address] 08063- 3561 Jul, [facility] [place] [id number] [place] [address] 65489- 9907 Jul, OCD (obsessive compulsive disorder) F42 ; Chronic cellulitis L03.90 ; Anxiety F41.9 ; Insomnia G47.00 and Anemia D64.9 [facility] [place] [id number] [place] [address] 92787- 1917 Dec, [facility] [place] [id number] [place] [address] 60607- 1184 Dec, [facility] [place] [id number] [place] [address] 44659- 0645 Aug, [facility] [place] [facility] [address] [id number] [place] [address]- 5498 Aug, [facility] [place] [facility] [address] [id number] [place] [address]- 7517 Aug, [facility] [place] [facility] [address] [id number] [place] [address]- 0110 Aug, [facility] [place] [facility] [address] [id number] [place] [address]- 5424 Aug, [facility] [place] [facility] [address] [id number] [place] [address]- 2231 Aug, [facility] [place] [facility] [address] [id number] [place] [address]- 9710 Aug, [facility] [place] [facility] [address] [id number] [place] [address]- 4626 Jul, [facility] [place] [facility] [address] [id number] [place] [address]- 6304 Jul, [facility] [place] [facility] [address] [id number] [place] [address]- 0868 Jul, [facility] [place] [facility] [address] [id number] [place] [address]- 5162 Jul, [facility] [place] [facility] [address] [id number] [place] [address]- 1779 Apr, [facility] [place] [facility] [address] [id number] [place] [address]- 5825 Apr, [facility] [place] [facility] [address] [id number] [place] [address]- 4701 Feb, [facility] [place] [facility] [address] [id number] [place] [address]- 2551 Feb, [facility] [place] [facility] [address] [id number] [place] [address]- 5246 Feb, [facility] [place] [facility] [address] [id number] [place] [address]- 2505 Feb, [facility] [place] [facility] [address] [id number] [place] [address]- 1705 January, [facility] [place] [facility] [address] [id number] [place] [address]- 6279 January, [facility] [place] [facility] [address] [id number] [place] [address]- 2744 January, [facility] [place] [facility] [address] [id number] [place] [address]- 1887 Dec, [facility] [place] [facility] [address] [id number] [place] [address]- 1039 Dec, [facility] [place] [facility] [address] [id number] [place] [address]- 1821 Dec, [facility] [place] [facility] [address] [id number] [place] [address]- 3754 Dec, [facility] [place] [facility] [address] [id number] [place] [address]- 6881 Nov, [facility] [place] [facility] [address] [id number] [place] [address]- 7167 Nov, [facility] [place] [facility] [address] [id number] [place] [address]- 5998 Nov, [facility] [place] [facility] [address] [id number] [place] [address]- 2151 Nov, [facility] [place] [facility] [address] [id number] [place] [address]- 2902 Nov, [facility] [place] [facility] [address] [id number] [place] [address]- 2818 Nov, [facility] [place] [facility] [address] [id number] [place] [address]- 8288 Oct, [facility] [place] [facility] [address] [id number] [place] [address]- 9052 Oct, [facility] [place] [facility] [address] [id number] [place] [address]- 7268 Oct, [facility] [place] [facility] [address] [id number] [place] [address]- 1645 Oct, [facility] [place] [facility] [address] [id number] [place] [address]- 3616 Oct, [facility] [place] [facility] [address] [id number] [place] [address]- 4267 Oct, [facility] [place] [facility] [address] [id number] [place] [address]- 5457 Oct, [facility] [place] [facility] [address] [id number] [place] [address]- 6684 Oct, [facility] [place] [facility] [address] [id number] [place] [address]- 3474 Oct, [facility] [place] [facility] [address] [id number] [place] [address]- 2208 Oct, [facility] [place] [facility] [address] [id number] [place] [address]- 3416 Oct, [facility] [place] [facility] [address] [id number] [place] [address]- 1051 Oct, [facility] [place] [facility] [address] [id number] [place] [address]- 0969 Sep, [facility] [place] [facility] [address] [id number] [place] [address]- 6837 Sep, [facility] [place] [facility] [address] [id number] [place] [address]- 7247 Sep, [facility] [place] [facility] [address] [id number] [place] [address]- 6868 Sep, [facility] [place] [facility] [address] [id number] [place] [address]- 4288 Aug, [facility] [place] [facility] [address] [facility] [id number] [place] [address] Aug, [facility], [place] [address] [facility] [id number] [place] [address] Aug, [facility], [place] [address] [id number] [address] Aug, [facility], [place] [address] [id number] [address] Aug, [facility], [place] [address] [id number] [address] Aug, [facility] [place] [address] [id number] [address] Aug, IMMUNIZATIONS No Known Immunizations SOCIAL HISTORY Never Assessed REASON FOR VISIT Shortness of breath f/u [facility] PLAN OF CARE Activity Details Follow Up Already has appt Reason: VITAL SIGNS Height 65 in 2018-01-19 Weight 305 lbs 2018-01-19 Temperature 97.2 degrees Fahrenheit 2018-01-19 Heart Rate 91 bpm 2018-01-19 Respiratory Rate 18 2018-01-19 Oximetry 98 % 2018-01-19 BMI 50.75 kg/m2 2018-01-19 Blood pressure systolic 105 mmHg 2018-01-19 Blood pressure diastolic 62 mmHg 2018-01-19 MEDICATIONS Medication Instructions Dosage Frequency Start Date End Date Duration Status Celexa 20 mg Orally BID 1 tab in AM and 1/2 tab in PM 12h 30 days Active Ativan 1 MG Orally twice a day as needed 1 tablet 30 days Active Zolpidem Tartrate 10 mg Orally at bedtime as needed 1 tablet Active Symbicort 160-4.5 mcg/act Inhalation Twice a day 2 puffs 12h Oct, Active PredniSONE 20 mg Orally Once a day 1 tablet 24h Dec, January, 10 days Active Ventolin HFA 90 MCG/ACT Inhalation every 4 hrs 2 puffs as needed 4h Active Ibuprofen 600 MG Orally Three times a day 1 tablet with food or milk as needed 8h Dec, Active PredniSONE 5 mg Orally Once a day 1 tablet 24h January, January, 30 day(s) Active Symbicort 160-4.5 MCG/ACT Inhalation Twice a day 2 puffs 12h January, January, 30 days Active RESULTS No Results PROCEDURES No Known procedures INSTRUCTIONS MEDICATIONS ADMINISTERED No Known Medications MEDICAL (GENERAL) HISTORY Type Description Date Medical History asthma Medical History anxiety Medical History gastric bypass 2001 Medical History anemia Medical History sleep apnea treated with biPAP Surgical History gastric bypass 2001 Hospitalization History surgery Hospitalization History anemia Hospitalization History sepsis Hospitalization History Acute hypoxic resp distress--[facility] 07/28/16 Hospitalization History Denies any past psychiatric hospitalization
--- OUTSIDE RECORDS SUMMARY | 2018-10-07 10:25 | XMS REPORT ---
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 Name Role Phone BRICE RAMIREZ Unavailable PROBLEMS Type Condition ICD9-CM Code FZB80-LA Code Onset Dates Condition Status SNOMED Code Problem Psychophysiological insomnia F51.04 Active 153846346 Problem Eating disorder, unspecified F50.9 Active 96805671 Problem Adjustment disorder with depressed mood F43.21 Active 25090975 Problem COPD exacerbation J44.1 Active 015940948 Problem Insomnia G47.00 Active 367241184 Problem BMI 45.0-49.9, adult Z68.42 Active 731165325 Problem OCD (obsessive compulsive disorder) F42 Active 807095005 Problem Chronic cellulitis L03.90 Active 703228841 Problem Moderate persistent asthma without complication J45.40 Active 924568783 Problem Body mass index (BMI) of 40.0-44.9 in adult Z68.41 Active 108881551 Problem Severe persistent asthma with acute exacerbation J45.51 Active 592950431 Problem Other obesity due to excess calories E66.09 Active 69610587895410 Problem Obesity (BMI 30.0-34.9) E66.9 Active 343015348308943 Problem SVETLANA treated with BiPAP G47.33 Active 36645403 Problem Anxiety F41.9 Active 39873885 Problem Asthma J45.909 Active 569878734 Problem Iron deficiency anemia, unspecified iron deficiency anemia type D50.9 Active 62016700 Problem Asthma exacerbation J45.901 Active 011837148 Problem Reactive depression F32.9 Active 27358279 Problem Seasonal allergic rhinitis due to pollen J30.1 Active 84009799 Problem Other chronic pain G89.29 Active 87158106 Problem Habitual self-excoriation F42.4 Active 224605752 ALLERGIES No Information ENCOUNTERS Encounter Location Date Diagnosis [facility] [id number] [place] [address] 36905- 5152 May, [facility] [id number] [place] [address] 10218- 9012 Apr, [facility] [address] 92555- 5528 Apr, ROBINA (generalized anxiety disorder) F41.1 ; Moderate episode of recurrent major depressive disorder F33.1 ; Excoriation T14.8XXA ; Binge eating disorder F50.81 and BMI 45.0-49.9, adult Z68.42 [facility] [address] 82516- 7812 Mar, [facility] [id number] [place] [address] 60526 -6099 Mar, Other specified bacterial agents as the cause of diseases classified elsewhere B96.89 ; Local infection of the skin and subcutaneous tissue, unspecified L08.9 ; Fever in other diseases R50.81 and BMI 50.0-59.9, adult Z68.43 [facility] [id number] [place] [address] 64470- 4374 Mar, Habitual self-excoriation F42.4 ; Anxiety F41.9 and Psychophysiological insomnia F51.04 [facility] [id number] [place] [address] 70757- 9814 Feb, [facility] [id number] [place] [address] 20048- 2878 Feb, Anxiety F41.9 and Psychophysiological insomnia F51.04 [facility] [id number] [place] [address] 83852- 7116 January, Acute pain of left knee M25.562 and BMI 50.0-59.9, adult Z68.43 [facility] [id number] [place] [address] 94960- 7393 January, [facility] [address] 05347- 9626 January, COPD exacerbation J44.1 and Severe persistent asthma with acute exacerbation J45.51 [place] [facility] [address] 54193- 0494 January, Anxiety F41.9 and Psychophysiological insomnia F51.04 [place] [address] 64776- 9641 January, COPD exacerbation J44.1 and Left medial knee pain M25.562 [place] [facility] [address] 07331- 1286 Dec, COPD with exacerbation J44.1 ; BMI 45.0-49.9, adult Z68.42 ; SVETLANA treated with BiPAP G47.33 and Psychophysiological insomnia F51.04 [place] [address] 56009- 0610 Dec, [facility] [address] 00275- 3634 Dec, Acute pain of left knee M25.562 ; Unspecified fall, initial encounter W19.XXXA ; Unspecified place in unspecified non-institutional (private ) residence as the place of occurrence of the external cause Y92.009 ; BMI 45.0- 49.9, adult Z68.42 and Severe persistent asthma with acute exacerbation J45.51 [facility] [id number] [place] [address] 98964- 1404 Dec, Anxiety F41.9 and Psychophysiological insomnia F51.04 [facility] [id number] [place] [address] 84960- 3289 Nov, Psychophysiological insomnia F51.04 [facility] [facility] [address] 89679- 9342 Oct, [facility] [address] 79953- 7162 Oct, Anxiety F41.9 [facility] [facility] [address] [place] [address]- 3243 Oct, [facility] [address] 28004- 6666 Oct, Severe persistent asthma with acute exacerbation J45.51 ; Tobacco abuse Z72.0 and BMI 45.0-49.9, adult Z68.42 [facility] [facility] [address] 45141- 8588 Oct, Psychophysiological insomnia F51.04 [facility] [address] 79449- 7525 Sep, Anxiety F41.9 [place] [address] 35087- 1117 Sep, Anxiety F41.9 and Habitual self-excoriation F42.4 [facility] [address] 79015- 8808 Sep, Psychophysiological insomnia F51.04 [place] [address] 80366- 0887 Aug, Anxiety F41.9 [facility] [address] 81883- 5035 Aug, Asthma J45.909 [facility] [address] 56553- 1063 Aug, Anxiety F41.9 [facility] [address] 89567 -0548 Aug, Acute bronchitis, unspecified organism J20.9 [facility] [address] 26279- 2519 Aug, Psychophysiological insomnia F51.04 [facility] [id number] [place] [address] 14178- 2420 Jul, Therapeutic drug monitoring Z51.81 [facility] [address] 70312- 7170 Jul, [facility] [id number] [place] [address] 05122- 0065 Jul, Habitual self-excoriation F42.4 [facility] [id number] [place] [address] 25093- 6804 08 Jul, 2017 [facility] [id number] [place] [address] 94399- 6636 07 Jul, 2017 [facility] [id number] [place] [address] 82477- 2107 31 Jun, 2017 SVETLANA treated with BiPAP G47.33 ; Moderate persistent asthma without complication J45.40 ; Anxiety F41.9 ; Other obesity due to excess calories E66.09 ; Body mass index (BMI) of 40.0-44.9 in adult Z68.41 ; Psychophysiological insomnia F51.04 and Encounter for immunization Z23 [facility] [facility] [id number] [place] [address] 48095- 9200 Jun, [facility] [id number] [place] [address] 38105- 9422 Jun, Habitual self-excoriation F42.4 ; Adjustment disorder with depressed mood F43.21 ; Psychophysiological insomnia F51.04 and Eating disorder , unspecified F50.9 [place] [id number] [place] [address] 32300- 0618 Jun, Visit for TB skin test Z11.1 [facility] [facility] [id number] [place] [address] 92649- 5580 Jun, Habitual self-excoriation F42.4 and Psychophysiological insomnia F51.04 [facility] [id number] [place] [address] 94241- 1264 Jun, Asthma J45.909 [facility] [facility] [id number] [place] [address] 70697- 2146 May, Asthma J45.909 [place] [id number] [place] [address] 21533- 7994 May, [facility] [id number] [place] [address] 52165- 3731 May, Habitual self-excoriation F42.4 and Psychophysiological insomnia F51.04 [facility] [id number] [place] [address] 92563- 8964 Apr, Habitual self-excoriation F42.4 ; Adjustment disorder with depressed mood F43.21 ; Psychophysiological insomnia F51.04 and Eating disorder , unspecified F50.9 [facility] [id number] [place] [address] 91219- 3679 Apr, [facility] [id number] [place] [address] 28759- 8291 Apr, Habitual self-excoriation F42.4 ; Adjustment disorder with depressed mood F43.21 ; Psychophysiological insomnia F51.04 and Other skilled nursing (current) drug therapy Z79.899 [facility] [id number] [place] [address] 57296- 8851 Mar, [facility] [id number] [place] [address] 32775- 2014 Mar, [facility] [id number] [place] [address] 57323- 1902 Mar, Anxiety F41.9 [facility] [address] [place] [address] 64333- 7983 Feb, Asthma J45.909 [facility] [id number] [place] [address] 08937- 9547 Feb, [facility] [id number] [place] [address] 25294- 1868 Feb, Anxiety F41.9 [facility] [address] [place] [address] 68834- 2767 Feb, Asthma exacerbation J45.901 and Seasonal allergic rhinitis due to pollen J30.1 [facility] [facility] [id number] [place] [address] 13560- 2766 January, [facility] [facility] [address] 43941- 7312 January, Anxiety F41.9 [facility] [facility] [id number] [place] [address] 79486- 9086 Dec, Therapeutic drug monitoring Z51.81 [facility] [facility] [address] 63501- 4368 Dec, Anxiety F41.9 and Asthma J45.[address] 12315- 5463 Nov, Asthma J45.[address] 26153- 5595 Nov, Anxiety F41.9 [place] [address] 04843- 5823 Oct, Asthma exacerbation J45.901 ; Pain in right knee M25.561 ; Pain in left knee M25.562 and Open wound of eyebrow, left, subsequent encounter S01.102D [facility] [facility] [id number] [place] [address] 30131- 8166 16 Oct, 2016 [facility] [id number] [place] [address] 53798 -4147 Oct, Other viral agents as the cause of diseases classified elsewhere B97.89 and Acute upper respiratory infection, unspecified J06.9 [place] [id number] [place] [address] 60107- 3570 Oct, [facility] [id number] [place] [address] 80441- 5456 Oct, [place] [address] 10925- 9063 Oct, Anxiety F41.9 [place] [address] 93051- 5693 Sep, [place] [address] 31476- 8279 Sep, SVETLANA treated with BiPAP G47.33 and Asthma J45.909 [place] [address] 05711- 1530 Sep, SVETLANA treated with BiPAP G47.33 ; Obesity (BMI 30.0-34.9) E66.9 and Reactive depression F32.9 [place] [address] 25873- 5816 Sep, Anxiety F41.9 [place] [address] 30462- 4538 Aug, [place] [address] 93998- 2325 Aug, Insomnia G47.00 [place] [address] 56329- 0096 Aug, [place] [address] 87869- 6369 Aug, SVETLANA treated with BiPAP G47.33 and On supplemental oxygen therapy Z99.81 [place] [address] 41755- 7760 Jul, On supplemental oxygen therapy Z99.81 ; Obesity (BMI 30.0- 34.9) E66.9 and SVETLANA treated with BiPAP G47.33 [place] [address] 59235- 2595 17 Jul, 2016 Mucus plugging of bronchi J98.09 ; On supplemental oxygen therapy Z99.81 ; Acute midline thoracic back pain M54.6 and SVETLANA treated with BiPAP G47.33 [place] [address] 57472- 4782 Jul, [facility] [address] [address]- 8683 Jul, [facility] [id number] [place] [address] 22985- 7146 Jul, [facility] [id number] [place] [address] 73149- 6208 May, [facility] [id number] [place] [address] 27743- 9714 May, [facility] [id number] [place] [address] 95046- 5419 Apr, [facility] [id number] [place] [address] 18542- 1137 Apr, [facility] [id number] [place] [address] 66138- 9220 Apr, Insomnia G47.00 ; Anemia D64.9 ; OCD (obsessive compulsive disorder) F42 ; Anxiety F41.9 ; Asthma J45.909 and Obesity (BMI 30.0-34.9) E66.9 [facility] [id number] [place] [address] 15008- 1658 Feb, [facility] [id number] [place] [address] 26613- 4062 Feb, Insomnia G47.00 [facility] [id number] [place] [address] 11629- 1345 Nov, [facility] [id number] [place] [address] 02342- 6607 Nov, [facility] [id number] [place] [address] 35424- 6257 Nov, [facility] [address] [place] [address] 31134- 7996 14 Nov, 2015 OCD (obsessive compulsive disorder) F42 ; Anxiety F41.9 ; Insomnia G47.00 ; Anemia D64.9 and Asthma J45.909 [facility] [id number] [address]- 8937 Nov, [facility] [id number] [place] [address] 82589- 5915 Oct, [facility] [id number] [place] [address] 82805- 7889 Aug, OCD (obsessive compulsive disorder) F42 ; Chronic cellulitis L03.90 ; Anxiety F41.9 ; Insomnia G47.00 ; Anemia D64.9 and Asthma J45.909 [facility] [id number] [place] [address] 94994- 1477 Aug, [facility] [id number] [place] [address] 34698- 0838 Jul, [facility] [id number] [place] [address] 58572- 9541 Jul, OCD (obsessive compulsive disorder) F42 ; Chronic cellulitis L03.90 ; Anxiety F41.9 ; Insomnia G47.00 and Anemia D64.9 [facility] [id number] [place] [address] 28064- 0022 Dec, [facility] [address] [place] [address] 56009- 6784 Dec, [facility] [id number] [place] [address] 48660- 2416 Aug, [facility] [address] [place] [address] 14097- 9227 Aug, [facility] [id number] [place] [address] 87241- 2991 Aug, [facility] [id number] [place] [address] 11923- 5098 Aug, [facility] [id number] [place] [address] 48951- 9017 Aug, [facility] [place] [facility] [address] [id number] [place] [address]- 9547 Aug, [facility] [place] [facility] [address] [id number] [place] [address]- 8623 Aug, [facility] [place] [facility] [address] [id number] [place] [address]- 4737 Jul, [facility] [place] [facility] [address] [id number] [place] [address]- 2061 Jul, [facility] [place] [facility] [address] [id number] [place] [address]- 9996 Jul, [facility] [place] [facility] [address] [id number] [place] [address]- 8495 Jul, [facility] [place] [facility] [address] [id number] [place] [address]- 0312 Apr, [facility] [place] [facility] [address] [id number] [place] [address]- 1874 Apr, [facility] [place] [facility] [address] [id number] [place] [address]- 4774 Feb, [facility] [place] [facility] [address] [id number] [place] [address]- 5832 Feb, [facility] [place] [facility] [address] [id number] [place] [address]- 3599 Feb, [facility] [place] [facility] [address] [id number] [address]- 2062 Feb, [facility] [place] [facility] [address] [id number] [place] [address]- 4297 January, [facility] [place] [facility] [address] [id number] [place] [address]- 1427 January, [facility] [place] [facility] [address] [id number] [place] [address]- 3271 January, [facility] [place] [facility] [address] [id number] [place] [address]- 9866 Dec, [facility] [place] [facility] [address] [id number] [place] [address]- 5486 Dec, [facility] [place] [facility] [address] [id number] [place] [address]- 2180 Dec, [facility] [place] [facility] [address] [id number] [place] [address]- 7688 Dec, [facility] [place] [facility] [address] [id number] [place] [address]- 8923 Nov, [facility] [place] [facility] [address] [id number] [place] [address]- 1092 Nov, [facility] [place] [facility] [address] [facility] [id number] [place] [address]- 5412 Nov, [facility] [place] [facility] [address] [facility] [id number] [place] [address]- 9167 Nov, [facility] [place] [facility] [address] [facility] [id number] [place] [address]- 9501 Nov, [facility] [place] [facility] [address] [facility] [id number] [place] [address]- 5892 Nov, [facility] [place] [facility] [address] [facility] [id number] [place] [address]- 9889 Oct, [facility] [place] [facility] [address] [id number] [place] [address]- 3359 Oct, [facility] [place] [facility] [address] [facility] [id number] [place] [address]- 7561 Oct, [facility] [place] [facility] [address] [id number] [place] [address]- 3421 Oct, [facility] [place] [facility] [address] [id number] [place] [address]- 1205 Oct, [facility] [place] [facility] [address] [facility] [id number] [place] [address]- 4859 Oct, [facility] [place] [facility] [address] [id number] [place] [address]- 7503 Oct, [facility] [place] [facility] [address] [id number] [place] [address]- 1354 Oct, [facility] [place] [facility] [address] [id number] [place] [address]- 1710 Oct, [facility] [place] [facility] [address] [id number] [place] [address]- 5295 Oct, [facility] [place] [facility] [address] [id number] [place] [address]- 8293 Oct, [facility] [place] [facility] [address] [id number] [place] [address]- 4235 Oct, [facility] [place] [facility] [address] [id number] [place] [address]- 8717 Sep, [facility] [place] [facility] [address] [id number] [place] [address]- 7292 Sep, [facility] [place] [facility] [address] [id number] [place] [address]- 9326 Sep, [facility] [place] [facility] [address] [id number] [place] [address]- 3617 Sep, [facility] [place] [facility] [address] [id number] [place] [address]- 9305 Aug, [facility] [place] [facility] [address] [id number] [address]- 7457 Aug, [facility] [place] [facility] [address] [id number] [place] [address]- 8136 Aug, [facility] [place] [facility] [address] [id number] [place] [address]- 0507 Aug, [facility] [place] [facility] [address] [id number] [place] [address]- 0695 Aug, [facility] [place] [facility] [address] [facility] [id number] [place] [address]- 0392 Aug, [facility] [address] [facility] [id number] [place] [address]- 1782 Aug, IMMUNIZATIONS No Known Immunizations SOCIAL HISTORY [...] sepsis Hospitalization History Acute hypoxic resp distress--[facility] 07/28/16 Hospitalization History Denies any past psychiatric hospitalization
--- OUTSIDE RECORDS SUMMARY | 2018-10-07 10:26 | XMS REPORT ---
Author Author BRICE RAMIREZ Organization [facility] Address [address] [place] [address] Care Team Providers Care Virologist Name Role Phone BRICE RAMIREZ Unavailable PROBLEMS Type Condition ICD9-CM Code SFT80-GO Code Onset Dates Condition Status SNOMED Code Problem Psychophysiological insomnia F51.04 Active 346296706 Problem Eating disorder, unspecified F50.9 Active 81728882 Problem Adjustment disorder with depressed mood F43.21 Active 78437830 Problem COPD exacerbation J44.1 Active 418731122 Problem Insomnia G47.00 Active 021694661 Problem BMI 45.0-49.9, adult Z68.42 Active 583334438 Problem OCD (obsessive compulsive disorder) F42 Active 361819109 Problem Chronic cellulitis L03.90 Active 314014026 Problem Moderate persistent asthma without complication J45.40 Active 416808103 Problem Body mass index (BMI) of 40.0-44.9 in adult Z68.41 Active 489349669 Problem Severe persistent asthma with acute exacerbation J45.51 Active 303526944 Problem Other obesity due to excess calories E66.09 Active 19972087036617 Problem Obesity (BMI 30.0-34.9) E66.9 Active 132519262395272 Problem SVETLANA treated with BiPAP G47.33 Active 08823353 Problem Anxiety F41.9 Active 04419906 Problem Asthma J45.909 Active 379761130 Problem Iron deficiency anemia, unspecified iron deficiency anemia type D50.9 Active 07764390 Problem Asthma exacerbation J45.901 Active 959363966 Problem Reactive depression F32.9 Active 80768520 Problem Seasonal allergic rhinitis due to pollen J30.1 Active 35033703 Problem Other chronic pain G89.29 Active 82723774 Problem Habitual self-excoriation F42.4 Active 634027368 ALLERGIES Substance Reaction Event Type Date Status Morphine Sulfate itching Drug Allergy Dec, Active ENCOUNTERS Encounter Location Date Diagnosis [facility] [id number] [place] [address] 06230- 1223 Apr, [facility] [id number] [place] [address] 06306- 2027 Mar, [facility] [id number] [place] [address] 86829 -8795 Mar, Other specified bacterial agents as the cause of diseases classified elsewhere B96.89 ; Local infection of the skin and subcutaneous tissue, unspecified L08.9 ; Fever in other diseases R50.81 and BMI 50.0-59.9, adult Z68.43 [facility] [id number] [place] [address] 64558- 3760 Mar, Habitual self-excoriation F42.4 ; Anxiety F41.9 and Psychophysiological insomnia F51.04 [facility] [id number] [place] [address] 72780- 5244 Feb, [facility] [id number] [place] [address] 34039- 9046 Feb, Anxiety F41.9 and Psychophysiological insomnia F51.04 [facility] [id number] [place] [address] 46475- 7444 January, Acute pain of left knee M25.562 and BMI 50.0-59.9, adult Z68.43 [facility] [id number] [place] [address] 19186- 6998 January, [facility] [id number] [place] [address] 83775- 0498 January, COPD exacerbation J44.1 and Severe persistent asthma with acute exacerbation J45.51 [facility] [id number] [place] [address] 65037- 7867 January, Anxiety F41.9 and Psychophysiological insomnia F51.04 [facility] [id number] [place] [address] 48744- 1202 January, COPD exacerbation J44.1 and Left medial knee pain M25.562 [facility] [address] 80808- 9463 Dec, COPD with exacerbation J44.1 ; BMI 45.0-49.9, adult Z68.42 ; SVETLANA treated with BiPAP G47.33 and Psychophysiological insomnia F51.04 [place] [facility] [address] 89728- 1566 Dec, [facility] [address] 72856- 6564 Dec, Acute pain of left knee M25.562 ; Unspecified fall, initial encounter W19.XXXA ; Unspecified place in unspecified non-institutional (private ) residence as the place of occurrence of the external cause Y92.009 ; BMI 45.0- 49.9, adult Z68.42 and Severe persistent asthma with acute exacerbation J45.51 [facility] [address] 51797- 4804 Dec, Anxiety F41.9 and Psychophysiological insomnia F51.04 [place] [facility] [address] 36171- 8981 Nov, Psychophysiological insomnia F51.04 [facility] [address] 72033- 9391 Oct, [facility] [address] 33012- 0412 Oct, Anxiety F41.9 [facility] [address] 12966- 9815 Oct, [facility] [address] 46072- 8519 Oct, Severe persistent asthma with acute exacerbation J45.51 ; Tobacco abuse Z72.0 and BMI 45.0-49.9, adult Z68.42 [place] [address] 34097- 3625 Oct, Psychophysiological insomnia F51.04 [facility] [id number] [place] [address] 39908- 9291 Sep, Anxiety F41.9 [facility] [id number] [place] [address] 77399- 1748 Sep, Anxiety F41.9 and Habitual self-excoriation F42.4 [facility] [id number] [place] [address] 12143- 8521 Sep, Psychophysiological insomnia F51.04 [facility] [id number] [place] [address] 37689- 1148 Aug, Anxiety F41.9 [facility] [id number] [place] [address] 15259- 8000 Aug, Asthma J45.909 [facility] [id number] [place] [address] 47292- 3006 Aug, Anxiety F41.9 [facility] [id number] [place] [address] 25782 -7379 Aug, Acute bronchitis, unspecified organism J20.9 [facility] [id number] [place] [address] 62734- 3791 Aug, Psychophysiological insomnia F51.04 [facility] [id number] [place] [address] 57545- 9654 Jul, Therapeutic drug monitoring Z51.81 [facility] [id number] [place] [address] 66134- 3836 Jul, [facility] [id number] [place] [address] 62685- 0720 Jul, Habitual self-excoriation F42.4 [facility] [id number] [place] [address] 20022- 0310 Jul, [facility] [address] [place] [address] 07157- 0924 Jul, [facility] [address] 95085- 4203 Jun, SVETLANA treated with BiPAP G47.33 ; Moderate persistent asthma without complication J45.40 ; Anxiety F41.9 ; Other obesity due to excess calories E66.09 ; Body mass index (BMI) of 40.0-44.9 in adult Z68.41 ; Psychophysiological insomnia F51.04 and Encounter for immunization Z23 [facility] [facility] [address] 94625- 1109 Jun, [place] [address] 16136- 5725 Jun, Habitual self-excoriation F42.4 ; Adjustment disorder with depressed mood F43.21 ; Psychophysiological insomnia F51.04 and Eating disorder , unspecified F50.9 [facility] [address] 98987- 2553 Jun, Visit for TB skin test Z11.1 [place] [facility] [address] 28855- 9584 Jun, Habitual self-excoriation F42.4 and Psychophysiological insomnia F51.04 [facility] [address] 21749- 9939 Jun, Asthma J45.909 [facility] [address] 91989- 1909 May, Asthma J45.909 [facility] [address] 22687- 9926 May, [facility] [address] 29434- 9197 May, Habitual self-excoriation F42.4 and Psychophysiological insomnia F51.04 [facility] [address] 20823- 2196 Apr, Habitual self-excoriation F42.4 ; Adjustment disorder with depressed mood F43.21 ; Psychophysiological insomnia F51.04 and Eating disorder , unspecified F50.9 [facility] [id number] [place] [address] 59630- 3030 Apr, [facility] [id number] [place] [address] 86562- 1667 Apr, Habitual self-excoriation F42.4 ; Adjustment disorder with depressed mood F43.21 ; Psychophysiological insomnia F51.04 and Other group home (current) drug therapy Z79.899 [facility] [id number] [place] [address] 62591- 0212 Mar, [facility] [id number] [place] [address] 27295- 9901 Mar, [facility] [id number] [place] [address] 38023- 3962 Mar, Anxiety F41.9 [facility] [id number] [place] [address] 04002- 3977 Feb, Asthma J45.909 [facility] [id number] [place] [address] 62118- 3320 Feb, [facility] [id number] [place] [address] 35299- 1299 Feb, Anxiety F41.9 [facility] [id number] [place] [address] 83259- 6887 Feb, Asthma exacerbation J45.901 and Seasonal allergic rhinitis due to pollen J30.1 [facility] [id number] [place] [address] 87577- 7985 January, [facility] [id number] [place] [address] 53838- 7134 January, Anxiety F41.9 [facility] [id number] [place] [address] 38313- 4503 Dec, Therapeutic drug monitoring Z51.81 [facility] [id number] [place] [address] 14109- 7536 Dec, Anxiety F41.9 and Asthma J45.909 [facility] [address] [place] [address] 29735- 0392 Nov, Asthma J45.909 [place] [address] 51685- 0448 Nov, Anxiety F41.9 [facility] [id number] [place] [address] 09079- 4471 Oct, Asthma exacerbation J45.901 ; Pain in right knee M25.561 ; Pain in left knee M25.562 and Open wound of eyebrow, left, subsequent encounter S01.102D [facility] [id number] [place] [address] 01271- 9470 16 Oct, 2016 [facility] [id number] [place] [address] 74410 -3775 Oct, Other viral agents as the cause of diseases classified elsewhere B97.89 and Acute upper respiratory infection, unspecified J06.9 [place] [address] [place] [address] 20075- 3604 Oct, [facility] [id number] [place] [address] 50785- 2528 Oct, [facility] [id number] [place] [address] 70516- 1460 Oct, Anxiety F41.9 [facility] [id number] [place] [address] 93984- 3129 Sep, [place] [address] [place] [address] 13866- 7411 Sep, SVETLANA treated with BiPAP G47.33 and Asthma J45.909 [facility] [id number] [place] [address] 08721- 1340 Sep, SVETLANA treated with BiPAP G47.33 ; Obesity (BMI 30.0-34.9) E66.9 and Reactive depression F32.9 [facility] [id number] [place] [address] 06222- 2036 Sep, Anxiety F41.9 [facility] [address] 55207- 6771 Aug, [facility] [address] 59895- 5939 Aug, Insomnia G47.00 [place] [address] 59740- 6814 Aug, [place] [id number] [place] [address] 25909- 1062 Aug, SVETLANA treated with BiPAP G47.33 and On supplemental oxygen therapy Z99.81 [place] [id number] [place] [address] 94379- 2986 Jul, On supplemental oxygen therapy Z99.81 ; Obesity (BMI 30.0- 34.9) E66.9 and SVETLANA treated with BiPAP G47.33 [place] [id number] [place] [address] 87641- 4621 Jul, Mucus plugging of bronchi J98.09 ; On supplemental oxygen therapy Z99.81 ; Acute midline thoracic back pain M54.6 and SVETLANA treated with BiPAP G47.33 [place] [address] [place] [address] 82359- 3070 Jul, [place] [id number] [place] [address] 23146- 6691 15 Jul, 2016 [facility] [id number] [place] [address] 89505- 4708 Jul, [facility] [id number] [place] [address] 60263- 6975 May, [facility] [id number] [place] [address] 06821- 7540 May, [facility] [address] 90697- 0396 Apr, [facility] [id number] [place] [address] 42130- 9728 Apr, [facility] [address] 57225- 7331 Apr, Insomnia G47.00 ; Anemia D64.9 ; OCD (obsessive compulsive disorder) F42 ; Anxiety F41.9 ; Asthma J45.909 and Obesity (BMI 30.0-34.9) E66.9 [facility] [id number] [place] [address] 67667- 7174 Feb, [facility] [address] 13249- 4297 Feb, Insomnia G47.00 [facility] [id number] [place] [address] 12175- 3920 Nov, [facility] [address] 81118- 7227 Nov, [facility] [id number] [place] [address] 44391- 7420 Nov, [facility] [id number] [place] [address] 49896- 4041 14 Nov, 2015 OCD (obsessive compulsive disorder) F42 ; Anxiety F41.9 ; Insomnia G47.00 ; Anemia D64.9 and Asthma J45.909 [facility] [id number] [place] [address] 95760- 6667 Nov, [facility] [id number] [place] [address] 46568- 0234 Oct, [facility] [address] 00424- 9198 Aug, OCD (obsessive compulsive disorder) F42 ; Chronic cellulitis L03.90 ; Anxiety F41.9 ; Insomnia G47.00 ; Anemia D64.9 and Asthma J45.909 [facility] [address] [place] [address] 22522- 0666 Aug, [facility] [id number] [place] [address] 04761- 7687 Jul, [facility] [id number] [place] [address] 60332- 4958 Jul, OCD (obsessive compulsive disorder) F42 ; Chronic cellulitis L03.90 ; Anxiety F41.9 ; Insomnia G47.00 and Anemia D64.9 [facility] [id number] [place] [address] 49374- 7198 Dec, [facility] [id number] [place] [address] 68739- 1553 Dec, [facility] [id number] [place] [address] 35088- 0115 Aug, [facility] [id number] [place] [address] 04746- 3110 Aug, [facility] [id number] [place] [address] 85873- 9966 Aug, [facility] [address] [place] [address] 51981- 5310 Aug, [facility] [address] [place] [address] 95766- 6305 Aug, [facility] [id number] [place] [address] 44556- 6087 Aug, [facility] [id number] [place] [address] 86358- 6051 Aug, [facility] [id number] [place] [address] 78284- 0667 Jul, [facility] [place] [facility] [address] [id number] [place] [address]- 1997 Jul, [facility] [place] [facility] [address] [id number] [place] [address]- 6690 Jul, [facility] [place] [facility] [address] [id number] [place] [address]- 9489 Jul, [facility] [place] [facility] [address] [id number] [place] [address]- 0307 Apr, [facility] [place] [facility] [address] [id number] [place] [address]- 8791 Apr, [facility] [place] [facility] [address] [id number] [place] [address]- 5824 Feb, [facility] [place] [facility] [address] [id number] [place] [address]- 4651 Feb, [facility] [place] [facility] [address] [id number] [place] [address]- 6800 Feb, [facility] [place] [facility] [address] [id number] [place] [address]- 9176 Feb, [facility] [place] [facility] [address] [id number] [place] [address]- 3849 January, [facility] [place] [facility] [address] [id number] [place] [address]- 6070 January, [facility] [place] [facility] [address] [id number] [place] [address]- 1870 January, [facility] [place] [facility] [address] [id number] [place] [address]- 5666 Dec, [facility] [place] [facility] [address] [id number] [place] [address]- 5434 Dec, [facility] [place] [facility] [address] [id number] [place] [address]- 2530 Dec, [facility] [place] [facility] [address] [id number] [place] [address]- 0059 Dec, [facility] [place] [facility] [address] [id number] [place] [address]- 9752 Nov, [facility] [place] [facility] [address] [id number] [place] [address]- 2251 Nov, [facility] [place] [facility] [address] [facility] [id number] [place] [address]- 4453 Nov, [facility] [place] [facility] [address] [id number] [place] [address]- 0104 Nov, [facility] [place] [facility] [address] [id number] [place] [address]- 7877 Nov, [facility] [place] [facility] [address] [id number] [place] [address]- 5892 Nov, [facility] [place] [facility] [address] [facility] [id number] [place] [address]- 1618 Oct, [facility] [place] [facility] [address] [id number] [place] [address]- 9076 Oct, [facility] [place] [facility] [address] [facility] [id number] [place] [address]- 6748 Oct, [facility] [place] [facility] [address] [facility] [id number] [place] [address]- 6165 Oct, [facility] [place] [facility] [address] [facility] [id number] [place] [address]- 9557 Oct, [facility] [place] [facility] [address] [facility] [id number] [place] [address]- 2022 Oct, [facility] [place] [facility] [address] [facility] [id number] [place] [address]- 6522 Oct, [facility] [place] [facility] [address] [facility] [id number] [place] [address]- 1459 Oct, [facility] [place] [facility] [address] [facility] [id number] [place] [address]- 1519 Oct, [facility] [place] [facility] [address] [facility] [id number], [place] [address]- 2425 Oct, [facility] [address] [facility] [id number], [place] [address]- 9326 Oct, [facility] [address] [facility] [id number], [place] [address]- 2546 Oct, [facility] [address] [address]- 4543 Sep, [facility] [address] [facility] [id number], [place] [address]- 7050 Sep, [facility] [address] 5213 Sep, [facility] [address] 8371 Sep, [facility] [address] [address]- 5865 Aug, [facility] [address] [address]- 5277 Aug, [facility] [address] [address]- 5757 Aug, [facility] [id number] [address]- 3213 Aug, [facility] [id number] [address]- 5114 Aug, [facility] [id number] 7944 Aug, [facility] [id number] 6337 Aug, IMMUNIZATIONS No Known Immunizations SOCIAL HISTORY Never Assessed REASON FOR VISIT Pain management fu -- adrien sloan PLAN OF CARE Activity Details Follow Up 3 Months with Linda chauhan asthma and left knee pain Reason: VITAL SIGNS Height 65 in 2018-01-05 Weight 295.0 lbs 2018-01-05 Temperature 98.5 degrees Fahrenheit 2018-01-05 BMI 49.09 kg/m2 2018-01-05 Blood pressure systolic 134 mmHg 2018-01-05 Blood pressure diastolic 78 mmHg 2018-01-05 MEDICATIONS Medication Instructions Dosage Frequency Start Date End Date Duration Status Ativan 1 MG Orally twice a day as needed 1 tablet 30 days Active Zolpidem Tartrate 10 mg Orally at bedtime as needed 1 tablet Active Symbicort 160-4.5 mcg/act Inhalation Twice a day 2 puffs 12h 27 Oct, 2013 Active Celexa 20 mg Orally BID 1 tab in AM and 1/2 tab in PM 12h 30 days Active Ventolin HFA 90 MCG/ACT Inhalation every 4 hrs 2 puffs as needed 4h Active Chantix Starting Month Nish 0.5 MG X 11 & 1 MG X 42 as directed Oct, Active RESULTS No Results PROCEDURES No Known procedures INSTRUCTIONS MEDICATIONS ADMINISTERED No Known Medications MEDICAL (GENERAL) HISTORY Type Description Date Medical History asthma Medical History anxiety Medical History gastric bypass Medical History anemia Medical History sleep apnea treated with biPAP Surgical History gastric bypass 2002 Hospitalization History surgery Hospitalization History anemia Hospitalization History sepsis Hospitalization History Acute hypoxic resp distress--[facility] 07/28/16 Hospitalization History Denies any past psychiatric hospitalization
--- OUTSIDE RECORDS SUMMARY | 2018-10-07 10:26 | XMS REPORT ---
Author Author BRICE RAMIREZ Organization [facility] Address [address] [place] [address] Care Team Providers Care Bow Maker Custom Name Role Phone BRICE RAMIREZ Unavailable PROBLEMS Type Condition ICD9-CM Code TUI61-PG Code Onset Dates Condition Status SNOMED Code Problem Psychophysiological insomnia F51.04 Active 405149186 Problem Eating disorder, unspecified F50.9 Active 55700296 Problem Adjustment disorder with depressed mood F43.21 Active 87940662 Problem COPD exacerbation J44.1 Active 207779901 Problem Insomnia G47.00 Active 741192046 Problem BMI 45.0-49.9, adult Z68.42 Active 398731529 Problem OCD (obsessive compulsive disorder) F42 Active 544532776 Problem Chronic cellulitis L03.90 Active 171214481 Problem Moderate persistent asthma without complication J45.40 Active 592541559 Problem Body mass index (BMI) of 40.0-44.9 in adult Z68.41 Active 552698480 Problem Severe persistent asthma with acute exacerbation J45.51 Active 701757254 Problem Other obesity due to excess calories E66.09 Active 00625324986539 Problem Obesity (BMI 30.0-34.9) E66.9 Active 782643478355497 Problem SVETLANA treated with BiPAP G47.33 Active 55380300 Problem Anxiety F41.9 Active 76615311 Problem Asthma J45.909 Active 305448565 Problem Iron deficiency anemia, unspecified iron deficiency anemia type D50.9 Active 93585796 Problem Asthma exacerbation J45.901 Active 268897392 Problem Reactive depression F32.9 Active 33585275 Problem Seasonal allergic rhinitis due to pollen J30.1 Active 40267342 Problem Other chronic pain G89.29 Active 57838188 Problem Habitual self-excoriation F42.4 Active 917258612 ALLERGIES No Information ENCOUNTERS Encounter Location Date Diagnosis [facility] [id number] [place] [address] 08339- 4335 Apr, [facility] [id number] [place] [address] 71324- 3627 Mar, [facility] [id number] [place] [address] 14922 -8280 Mar, Other specified bacterial agents as the cause of diseases classified elsewhere B96.89 ; Local infection of the skin and subcutaneous tissue, unspecified L08.9 ; Fever in other diseases R50.81 and BMI 50.0-59.9, adult Z68.43 [facility] [id number] [place] [address] 55675- 5809 Mar, Habitual self-excoriation F42.4 ; Anxiety F41.9 and Psychophysiological insomnia F51.04 [place] [id number] [place] [address] 53038- 7009 Feb, [facility] [id number] [place] [address] 44077- 9794 Feb, Anxiety F41.9 and Psychophysiological insomnia F51.04 [facility] [id number] [place] [address] 36373- 4850 January, Acute pain of left knee M25.562 and BMI 50.0-59.9, adult Z68.43 [facility] [id number] [place] [address] 27423- 2380 January, [facility] [id number] [place] [address] 00288- 9675 January, COPD exacerbation J44.1 and Severe persistent asthma with acute exacerbation J45.51 [place] [address] 82665- 8243 January, Anxiety F41.9 and Psychophysiological insomnia F51.04 [place] [id number] [place] [address] 90985- 3705 January, COPD exacerbation J44.1 and Left medial knee pain M25.562 [place] [id number] [place] [address] 18585- 1207 Dec, COPD with exacerbation J44.1 ; BMI 45.0-49.9, adult Z68.42 ; SVETLANA treated with BiPAP G47.33 and Psychophysiological insomnia F51.04 [place] [id number] [place] [address] 75302- 5120 Dec, [place] [id number] [place] [address] 52044- 5731 Dec, Acute pain of left knee M25.562 ; Unspecified fall, initial encounter W19.XXXA ; Unspecified place in unspecified non-institutional (private ) residence as the place of occurrence of the external cause Y92.009 ; BMI 45.0- 49.9, adult Z68.42 and Severe persistent asthma with acute exacerbation J45.51 [place] [id number] [place] [address] 80834- 6394 Dec, Anxiety F41.9 and Psychophysiological insomnia F51.04 [place] [id number] [place] [address] 82834- 5734 Nov, Psychophysiological insomnia F51.04 [place] [id number] [place] [address] 35710- 6917 Oct, [place] [id number] [place] [address] 49499- 0636 Oct, Anxiety F41.9 [place] [id number] [place] [address] 21892- 6532 Oct, [place] [id number] [place] [address] 48729- 0133 Oct, Severe persistent asthma with acute exacerbation J45.51 ; Tobacco abuse Z72.0 and BMI 45.0-49.9, adult Z68.42 [place] [id number] [place] [address] 23457- 9363 07 Oct, 2017 Psychophysiological insomnia F51.04 [facility] [id number] [place] [address] 42508- 2369 Sep, Anxiety F41.9 [facility] [id number] [place] [address] 25159- 0539 Sep, Anxiety F41.9 and Habitual self-excoriation F42.4 [facility] [address] 24355- 7093 Sep, Psychophysiological insomnia F51.04 [facility] [id number] [place] [address] 33444- 7678 Aug, Anxiety F41.9 [facility] [address] 12203- 2843 Aug, Asthma J45.909 [facility] [id number] [place] [address] 81222- 1725 Aug, Anxiety F41.9 [facility] [id number] [place] [address] 63444 -3443 Aug, Acute bronchitis, unspecified organism J20.9 [facility] [id number] [place] [address] 92029- 1632 Aug, Psychophysiological insomnia F51.04 [facility] [id number] [place] [address] 77777- 3667 Jul, Therapeutic drug monitoring Z51.81 [facility] [id number] [place] [address] 86243- 8434 Jul, [facility] [id number] [place] [address] 24505- 8632 Jul, Habitual self-excoriation F42.4 [facility] [id number] [place] [address] 20727- 5232 Jul, [facility] [id number] [place] [address] 46915- 0940 Jul, [place] [id number] [place] [address] 98599- 7176 Jun, SVETLANA treated with BiPAP G47.33 ; Moderate persistent asthma without complication J45.40 ; Anxiety F41.9 ; Other obesity due to excess calories E66.09 ; Body mass index (BMI) of 40.0-44.9 in adult Z68.41 ; Psychophysiological insomnia F51.04 and Encounter for immunization Z23 [place] [address] 84335- 0107 Jun, [place] [address] 27267- 4253 Jun, Habitual self-excoriation F42.4 ; Adjustment disorder with depressed mood F43.21 ; Psychophysiological insomnia F51.04 and Eating disorder , unspecified F50.[address] 51507- 9185 Jun, Visit for TB skin test Z11.1 [place] [address] 11242- 7040 Jun, Habitual self-excoriation F42.4 and Psychophysiological insomnia F51.04 [place] [address] 75757- 1317 Jun, Asthma J45.909 [place] [address] 49696- 6725 May, Asthma J45.909 [place] [address] 76931- 4715 May, [place] [address] 04588- 7448 May, Habitual self-excoriation F42.4 and Psychophysiological insomnia F51.04 [place] [address] 33366- 6415 Apr, Habitual self-excoriation F42.4 ; Adjustment disorder with depressed mood F43.21 ; Psychophysiological insomnia F51.04 and Eating disorder , unspecified F50.9 [facility] [id number] [place] [address] 89136- 0049 Apr, [facility] [id number] [place] [address] 72780- 0753 Apr, Habitual self-excoriation F42.4 ; Adjustment disorder with depressed mood F43.21 ; Psychophysiological insomnia F51.04 and Other usp (current) drug therapy Z79.899 [facility] [id number] [place] [address] 15846- 3207 Mar, [facility] [id number] [place] [address] 95640- 0653 Mar, [facility] [id number] [place] [address] 21135- 9211 Mar, Anxiety F41.9 [facility] [id number] [place] [address] 68424- 9927 Feb, Asthma J45.909 [facility] [id number] [place] [address] 10545- 2145 Feb, [facility] [id number] [place] [address] 61066- 5838 Feb, Anxiety F41.9 [facility] [id number] [place] [address] 30202- 1195 Feb, Asthma exacerbation J45.901 and Seasonal allergic rhinitis due to pollen J30.1 [facility] [id number] [place] [address] 92968- 4481 January, [facility] [id number] [place] [address] 44497- 5649 January, Anxiety F41.9 [facility] [id number] [place] [address] 39594- 1351 Dec, Therapeutic drug monitoring Z51.81 [place] [id number] [place] [address] 11424- 0590 Dec, Anxiety F41.9 and Asthma J45.909 [place] [address] 56147- 1044 Nov, Asthma J45.909 [place] [address] 05237- 0607 Nov, Anxiety F41.9 [place] [address] 64044- 0840 Oct, Asthma exacerbation J45.901 ; Pain in right knee M25.561 ; Pain in left knee M25.562 and Open wound of eyebrow, left, subsequent encounter S01.102D [place] [id number] [place] [address] 32323- 6964 16 Oct, 2016 [facility] [address] 35990 -5783 Oct, Other viral agents as the cause of diseases classified elsewhere B97.89 and Acute upper respiratory infection, unspecified J06.9 [place] [id number] [place] [address] 91023- 6248 Oct, [place] [id number] [place] [address] 42089- 3430 Oct, [place] [id number] [place] [address] 08783- 6584 Oct, Anxiety F41.9 [place] [id number] [place] [address] 44623- 9079 Sep, [place] [address] 34644- 0401 Sep, SVETLANA treated with BiPAP G47.33 and Asthma J45.909 [place] [id number] [place] [address] 73306- 5765 Sep, SVETLANA treated with BiPAP G47.33 ; Obesity (BMI 30.0-34.9) E66.9 and Reactive depression F32.9 [place] [address] 87497- 6451 Sep, Anxiety F41.9 [facility] [address] 22919- 5785 Aug, [place] [address] 67993- 7789 Aug, Insomnia G47.00 [place] [address] 57831- 9435 Aug, [place] [address] 82595- 6166 Aug, SVETLANA treated with BiPAP G47.33 and On supplemental oxygen therapy Z99.81 [place] [address] 30823- 8418 Jul, On supplemental oxygen therapy Z99.81 ; Obesity (BMI 30.0- 34.9) E66.9 and SVETLANA treated with BiPAP G47.33 [place] [address] 10658- 3826 Jul, Mucus plugging of bronchi J98.09 ; On supplemental oxygen therapy Z99.81 ; Acute midline thoracic back pain M54.6 and SVETLANA treated with BiPAP G47.33 [place] [id number] [place] [address] 44892- 9843 Jul, [place] [address] 46660- 8343 Jul, [place] [address] 36014- 7471 Jul, [place] [address] 05770- 1083 May, [place] [address] [place] [address]- 9693 May, [facility] [id number] [place] [address] 44680- 2593 Apr, [facility] [id number] [place] [address] 64890- 3319 Apr, [facility] [id number] [place] [address] 11615- 0797 Apr, Insomnia G47.00 ; Anemia D64.9 ; OCD (obsessive compulsive disorder) F42 ; Anxiety F41.9 ; Asthma J45.909 and Obesity (BMI 30.0-34.9) E66.9 [facility] [id number] [place] [address] 99415- 4984 Feb, [facility] [id number] [place] [address] 49931- 7946 Feb, Insomnia G47.00 [facility] [id number] [place] [address] 82477- 1626 Nov, [facility] [id number] [place] [address] 71195- 6328 Nov, [facility] [id number] [place] [address] 87854- 1185 Nov, [facility] [id number] [place] [address] 40887- 7518 Nov, OCD (obsessive compulsive disorder) F42 ; Anxiety F41.9 ; Insomnia G47.00 ; Anemia D64.9 and Asthma J45.909 [facility] [id number] [place] [address] 36858- 7324 Nov, [facility] [address] 23064- 2134 Oct, [facility] [id number] [place] [address] 59723- 9597 Aug, OCD (obsessive compulsive disorder) F42 ; Chronic cellulitis L03.90 ; Anxiety F41.9 ; Insomnia G47.00 ; Anemia D64.9 and Asthma J45.909 [facility] [id number] [place] [address] 50959- 1007 Aug, [facility] [id number] [place] [address] 31663- 4390 Jul, [facility] [id number] [place] [address] 56092- 6749 Jul, OCD (obsessive compulsive disorder) F42 ; Chronic cellulitis L03.90 ; Anxiety F41.9 ; Insomnia G47.00 and Anemia D64.9 [facility] [id number] [place] [address] 90305- 3886 Dec, [facility] [id number] [place] [address] 18377- 4625 Dec, [facility] [id number] [place] [address] 91485- 6084 Aug, [facility] [id number] [place] [address] 00402- 2537 Aug, [facility] [id number] [place] [address] 31403- 7940 Aug, [facility] [id number] [place] [address] 30586- 1621 Aug, [facility] [id number] [place] [address] 96011- 7395 Aug, [facility] [address] [place] [address] 61480- 3133 Aug, [facility] [id number] [place] [address] 48692- 8272 Aug, [facility] [id number] [place] [address] 18207- 9801 18 Jul, 2014 [facility] [id number] [place] [address] 62925- 8122 Jul, [facility] [place] [facility] [address] [id number] [place] [address]- 8084 Jul, [facility] [place] [facility] [address] [id number] [place] [address]- 2231 Jul, [facility] [place] [facility] [address] [id number] [place] [address]- 0461 Apr, [facility] [place] [facility] [address] [id number] [place] [address]- 9282 Apr, [facility] [place] [facility] [address] [id number] [place] [address]- 8743 Feb, [facility] [place] [facility] [address] [id number] [place] [address]- 9364 Feb, [facility] [place] [facility] [address] [id number] [place] [address]- 3416 Feb, [facility] [place] [facility] [address] [id number] [place] [address]- 2785 Feb, [facility] [place] [facility] [address] [id number] [place] [address]- 0354 January, [facility] [place] [facility] [address] [id number] [place] [address]- 1848 January, [facility] [place] [facility] [address] [id number] [place] [address]- 7451 January, [facility] [place] [facility] [address] [id number] [place] [address]- 1975 Dec, [facility] [place] [facility] [address] [id number] [place] [address]- 5707 Dec, [facility] [place] [facility] [address] [id number] [place] [address]- 3187 Dec, [facility] [place] [facility] [address] [id number] [place] [address]- 0785 Dec, [facility] [place] [facility] [address] [id number] [place] [address]- 3929 Nov, [facility] [place] [facility] [address] [id number] [place] [address]- 8572 Nov, [facility] [place] [facility] [address] [id number] [place] [address]- 0902 Nov, [facility] [place] [facility] [address] [id number] [place] [address]- 4922 Nov, [facility] [place] [facility] [address] [id number] [place] [address]- 2251 Nov, [facility] [place] [facility] [address] [id number] [place] [address]- 2245 Nov, [facility] [place] [facility] [address] [facility] [id number] [place] [address]- 1695 Oct, [facility] [place] [facility] [address] [id number] [place] [address]- 7055 Oct, [facility] [place] [facility] [address] [id number] [place] [address]- 9452 Oct, [facility] [place] [facility] [address] [facility] [id number] [place] [address]- 4243 Oct, [facility] [place] [facility] [address] [facility] [id number] [place] [address]- 2696 Oct, [facility] [place] [facility] [address] [facility] [id number] [place] [address]- 5114 Oct, [facility] [place] [facility] [address] [id number] [place] [address]- 8409 Oct, [facility] [place] [facility] [address] [id number] [place] [address]- 7864 Oct, [facility] [place] [facility] [address] [facility] [id number] [place] [address]- 5178 Oct, [facility] [place] [facility] [address] [facility] [id number], [place] [address]- 3665 Oct, [facility] [address] [facility] [id number], [place] [address]- 5034 Oct, [facility] [address] [facility] [id number] 0748 Oct, [facility] [address] [address]- 2979 Sep, [facility] [address] [address]- 3902 Sep, [facility] [address] [address]- 9739 Sep, [facility] [address] [place] [address]- 4353 Sep, [facility] [address] [address]- 8437 Aug, [facility] [address] [place] [address]- 3891 Aug, [facility] [address], [place] [address]- 5989 Aug, [facility] [address] [address]- 0812 Aug, [facility] [address] [place] [address]- 8345 Aug, [facility] [address] [id number] [address]- 7269 Aug, [facility] [address] [id number], [place] [address]- 8996 Aug, IMMUNIZATIONS No Known Immunizations SOCIAL HISTORY Never Assessed REASON FOR VISIT phone call PLAN OF CARE VITAL SIGNS MEDICATIONS Medication Instructions Dosage Frequency Start Date End Date Duration Status Zolpidem Tartrate 10 mg Orally at bedtime as needed 1 tablet Active Ativan 1 MG Orally twice a day as needed 1 tablet 30 days Active PredniSONE 50 mg Orally Once a day 1 tablet 24h 03 Apr, 2018 10 Apr, 2018 07 days Active RESULTS No Results PROCEDURES No Known procedures INSTRUCTIONS MEDICATIONS ADMINISTERED No Known Medications MEDICAL (GENERAL) HISTORY Type Description Date Medical History asthma Medical History anxiety Medical History gastric bypass Medical History anemia Medical History sleep apnea treated with biPAP Surgical History gastric bypass 2002 Hospitalization History surgery Hospitalization History anemia Hospitalization History sepsis Hospitalization History Acute hypoxic resp distress--[facility] 07/28/16 Hospitalization History Denies any past psychiatric hospitalization
--- OUTSIDE RECORDS SUMMARY | 2018-10-07 10:27 | XMS REPORT ---
Author Author BRICE RAMIREZ Organization [facility] Address [address] [place] [address] Care Team Providers Care Transportation Associate Name Role Phone BRICE RAMIREZ Unavailable PROBLEMS Type Condition ICD9-CM Code [id number] Code Onset Dates Condition Status SNOMED Code Problem Other chronic pain G89.29 Active 98201490 Problem Reactive depression F32.9 Active 63425125 Problem Iron deficiency anemia, unspecified iron deficiency anemia type D50.9 Active 89174401 Problem Eating disorder, unspecified F50.9 Active 28652530 Problem Adjustment disorder with depressed mood F43.21 Active 53632451 Problem Seasonal allergic rhinitis due to pollen J30.1 Active 71989308 Problem Asthma exacerbation J45.901 Active 083776338 Problem Psychophysiological insomnia F51.04 Active 063015937 Problem Habitual self-excoriation F42.4 Active 162053416 Problem Chronic cellulitis L03.90 Active 225207655 Problem OCD (obsessive compulsive disorder) F42 Active 376365078 Problem Obesity (BMI 30.0-34.9) E66.9 Active 967685346062664 Problem Insomnia G47.00 Active 846632237 Problem Asthma J45.909 Active 317625076 Problem Anxiety F41.9 Active 25472808 Problem SVETLANA treated with BiPAP G47.33 Active 30990206 ALLERGIES Unknown Allergies SOCIAL HISTORY No smoking Hx information available PLAN OF CARE VITAL SIGNS MEDICATIONS Medication Instructions Dosage Frequency Start Date End Date Duration Status Hydrocodone-Acetaminophen 5-325 MG Orally BID PRN pain 1 tablet as needed Sep, Active Ativan 0.5 MG Orally 2 times a day 1 tablet as needed 12h 22 Apr, 2016 Active Zolpidem Tartrate 10 mg TAKE 1 TABLET BY MOUTH EVERY NIGHT AT BEDTIME NEEDED Active RESULTS No Results PROCEDURES No Known procedures IMMUNIZATIONS No Known Immunizations
--- OUTSIDE RECORDS SUMMARY | 2018-10-07 10:27 | XMS REPORT ---
Author Author RAMONE CELAYA Organization [facility] [place] Address [address] [place] [address] Care Team Providers Care Real Estate Listing Consultant Name Role Phone BELIARAMONE Unavailable PROBLEMS Type Condition ICD9-CM Code CXO46-ER Code Onset Dates Condition Status SNOMED Code Problem Psychophysiological insomnia F51.04 Active 003802914 Problem Eating disorder, unspecified F50.9 Active 45265759 Problem Adjustment disorder with depressed mood F43.21 Active 99777505 Problem COPD exacerbation J44.1 Active 563630468 Problem Insomnia G47.00 Active 762373375 Problem BMI 45.0-49.9, adult Z68.42 Active 210733589 Problem OCD (obsessive compulsive disorder) F42 Active 030097069 Problem Chronic cellulitis L03.90 Active 945019755 Problem Moderate persistent asthma without complication J45.40 Active 096419086 Problem Body mass index (BMI) of 40.0-44.9 in adult Z68.41 Active 856968653 Problem Severe persistent asthma with acute exacerbation J45.51 Active 033301753 Problem Other obesity due to excess calories E66.09 Active 89163445681987 Problem Obesity (BMI 30.0-34.9) E66.9 Active [id number] Problem SVETLANA treated with BiPAP G47.33 Active 89361355 Problem Anxiety F41.9 Active 72067070 Problem Asthma J45.909 Active 912523381 Problem Iron deficiency anemia, unspecified iron deficiency anemia type D50.9 Active 73924828 Problem Asthma exacerbation J45.901 Active 088219271 Problem Reactive depression F32.9 Active 72920943 Problem Seasonal allergic rhinitis due to pollen J30.1 Active 36739854 Problem Other chronic pain G89.29 Active 49451767 Problem Habitual self-excoriation F42.4 Active 574106864 ALLERGIES No Information ENCOUNTERS Encounter Location Date Diagnosis [facility] [place] [id number] [place] [address] 39599- 8504 Feb, [facility] [place] [id number] [place] [address] 20672- 9227 January, COPD exacerbation J44.1 and Left medial knee pain M25.562 [facility] [place] [id number] [place] [address] 05188- 1607 Dec, COPD with exacerbation J44.1 ; BMI 45.0-49.9, adult Z68.42 ; SVETLANA treated with BiPAP G47.33 ; Habitual self-excoriation F42.4 and Psychophysiological insomnia F51.04 [place] [address] 52639- 0906 Dec, [place] [id number] [place] [address] 08148- 0251 Dec, Acute pain of left knee M25.562 ; Unspecified fall, initial encounter W19.XXXA ; Unspecified place in unspecified non-institutional (private ) residence as the place of occurrence of the external cause Y92.009 ; BMI 45.0- 49.9, adult Z68.42 and Severe persistent asthma with acute exacerbation J45.51 [place] [id number] [place] [address] 05872- 5911 Dec, Anxiety F41.9 and Psychophysiological insomnia F51.04 [place] [id number] [place] [address] 28484- 4074 Nov, Psychophysiological insomnia F51.04 [place] [id number] [place] [address] 99454- 1350 Oct, [place] [address] 62486- 0198 Oct, Anxiety F41.9 [place] [id number] [place] [address] 78558- 7149 Oct, [place] [address] 71204- 0479 Oct, Severe persistent asthma with acute exacerbation J45.51 ; Tobacco abuse Z72.0 and BMI 45.0-49.9, adult Z68.42 [place] [id number] [place] [address] 80530- 2659 Oct, Psychophysiological insomnia F51.04 [place] [address] 38464- 7907 Sep, Anxiety F41.9 [place] [address] 53782- 2373 Sep, Anxiety F41.9 and Habitual self-excoriation F42.4 [place] [address] 98677- 5931 Sep, Psychophysiological insomnia F51.04 [place] [address] 34430- 0856 Aug, Anxiety F41.9 [place] [address] 46306- 5226 Aug, Asthma J45.909 [place] [address] 49824- 9203 Aug, Anxiety F41.9 [facility] [address] 60051 -2618 Aug, Acute bronchitis, unspecified organism J20.9 [place] [address] 44887- 4155 Aug, Psychophysiological insomnia F51.04 [place] [address] 47023- 8921 Jul, Therapeutic drug monitoring Z51.81 [place] [address] 07075- 5188 Jul, [place] [address] 63656- 4961 Jul, Habitual self-excoriation F42.4 [place] [id number] [place] [address] 83698- 6428 Jul, [place] [id number] [place] [address] 13272- 9897 Jul, [place] [id number] [place] [address] 05257- 1478 Jun, SVETLANA treated with BiPAP G47.33 ; Moderate persistent asthma without complication J45.40 ; Anxiety F41.9 ; Other obesity due to excess calories E66.09 ; Body mass index (BMI) of 40.0-44.9 in adult Z68.41 ; Psychophysiological insomnia F51.04 and Encounter for immunization Z23 [place] [id number] [place] [address] 33693- 6445 Jun, [place] [address] 45911- 5280 Jun, Habitual self-excoriation F42.4 ; Adjustment disorder with depressed mood F43.21 ; Psychophysiological insomnia F51.04 and Eating disorder , unspecified F50.9 [place] [id number] [place] [address] 63300- 9842 Jun, Visit for TB skin test Z11.1 [place] [id number] [place] [address] 03654- 7680 Jun, Habitual self-excoriation F42.4 and Psychophysiological insomnia F51.04 [place] [id number] [place] [address] 97279- 8164 Jun, Asthma J45.909 [place] [id number] [place] [address] 58173- 0433 May, Asthma J45.909 [place] [id number] [place] [address] 20489- 2053 May, [place] [id number] [place] [address] 08505- 2738 May, Habitual self-excoriation F42.4 and Psychophysiological insomnia F51.04 [place] [id number] [place] [address] 16826- 3516 Apr, Habitual self-excoriation F42.4 ; Adjustment disorder with depressed mood F43.21 ; Psychophysiological insomnia F51.04 and Eating disorder , unspecified F50.9 [place] [id number] [place] [address] 98315- 2836 Apr, [place] [id number] [place] [address] 53912- 4000 Apr, Habitual self-excoriation F42.4 ; Adjustment disorder with depressed mood F43.21 ; Psychophysiological insomnia F51.04 and Other shelter (current) drug therapy Z79.899 [place] [id number] [place] [address] 48487- 6072 Mar, [place] [id number] [place] [address] 78761- 5749 Mar, [place] [address] 17240- 0155 Mar, Anxiety F41.9 [place] [id number] [place] [address] 63041- 0735 Feb, Asthma J45.909 [place] [id number] [place] [address] 89013- 8035 Feb, [place] [id number] [place] [address] 86739- 7181 Feb, Anxiety F41.9 [place] [id number] [place] [address] 48606- 8202 Feb, Asthma exacerbation J45.901 and Seasonal allergic rhinitis due to pollen J30.1 [place] [id number] [place] [address] 31039- 9079 January, [facility] [place] [id number] [place] [address] 79581- 1447 January, Anxiety F41.9 [facility] [place] [id number] [place] [address] 21572- 8925 Dec, Therapeutic drug monitoring Z51.81 [facility] [place] [id number] [place] [address] 39813- 5494 Dec, Anxiety F41.9 and Asthma J45.909 [facility] [place] [id number] [place] [address] 23772- 9130 Nov, Asthma J45.909 [place] [id number] [place] [address] 22174- 9786 Nov, Anxiety F41.9 [place] [id number] [place] [address] 06272- 4782 Oct, Asthma exacerbation J45.901 ; Pain in right knee M25.561 ; Pain in left knee M25.562 and Open wound of eyebrow, left, subsequent encounter S01.102D [facility] [place] [id number] [place] [address] 28068- 3539 16 Oct, 2016 [facility] [id number] [place] [address] 04839 -9716 Oct, Other viral agents as the cause of diseases classified elsewhere B97.89 and Acute upper respiratory infection, unspecified J06.9 [facility] [place] [id number] [place] [address] 47303- 4654 Oct, [facility] [place] [id number] [place] [address] 76380- 7797 Oct, [facility] [place] [id number] [place] [address] 23134- 2486 Oct, Anxiety F41.9 [facility] [place] [id number] [place] [address] 09931- 2230 Sep, [place] [id number] [place] [address] 52248- 4894 Sep, SVETLANA treated with BiPAP G47.33 and Asthma J45.909 [place] [id number] [place] [address] 74319- 4809 Sep, SVETLANA treated with BiPAP G47.33 ; Obesity (BMI 30.0-34.9) E66.9 and Reactive depression F32.9 [place] [address] 26604- 2849 04 Sep, 2016 Anxiety F41.9 [place] [address] 64135- 6611 Aug, [place] [address] 94669- 9981 Aug, Insomnia G47.00 [place] [address] 68948- 7051 Aug, [place] [address] 64480- 0016 Aug, SVETLANA treated with BiPAP G47.33 and On supplemental oxygen therapy Z99.81 [place] [id number] [place] [address] 60482- 9205 Jul, On supplemental oxygen therapy Z99.81 ; Obesity (BMI 30.0- 34.9) E66.9 and SVETLANA treated with BiPAP G47.33 [place] [id number] [place] [address] 22722- 8796 17 Jul, 2016 Mucus plugging of bronchi J98.09 ; On supplemental oxygen therapy Z99.81 ; Acute midline thoracic back pain M54.6 and SVETLANA treated with BiPAP G47.33 [place] [id number] [place] [address] 34353- 5028 16 Jul, 2016 [place] [id number] [place] [address] 11216- 8785 15 Jul, 2016 [facility] [place] [address] [place] [address]- 1336 Jul, [facility] [place] [id number] [place] [address] 87304- 8122 May, [facility] [place] [id number] [place] [address] 74535- 9665 May, [facility] [place] [id number] [place] [address] 58082- 7185 Apr, [facility] [place] [id number] [place] [address] 20553- 9810 Apr, [facility] [place] [id number] [place] [address] 00499- 7727 Apr, Insomnia G47.00 ; Anemia D64.9 ; OCD (obsessive compulsive disorder) F42 ; Anxiety F41.9 ; Asthma J45.909 and Obesity (BMI 30.0-34.9) E66.9 [facility] [place] [id number] [address]- 3641 Feb, [facility] [place] [id number] [place] [address] 51946- 7989 Feb, Insomnia G47.00 [facility] [place] [id number] [place] [address] 41769- 6613 Nov, [facility] [place] [id number] [place] [address] 11613- 2294 Nov, [facility] [place] [id number] [address]- 5816 Nov, [facility] [place] [id number] [place] [address] 34663- 5130 Nov, OCD (obsessive compulsive disorder) F42 ; Anxiety F41.9 ; Insomnia G47.00 ; Anemia D64.9 and Asthma J45.909 [facility] [place] [id number] [place] [address] 27447- 0770 Nov, [facility] [place] [address] [place] [address]- 8239 Oct, [facility] [place] [id number] [place] [address] 12124- 3808 Aug, OCD (obsessive compulsive disorder) F42 ; Chronic cellulitis L03.90 ; Anxiety F41.9 ; Insomnia G47.00 ; Anemia D64.9 and Asthma J45.909 [facility] [place] [id number] [place] [address] 02403- 1411 Aug, [facility] [place] [id number] [place] [address] 59776- 7800 Jul, [facility] [place] [id number] [place] [address] 77813- 2574 Jul, OCD (obsessive compulsive disorder) F42 ; Chronic cellulitis L03.90 ; Anxiety F41.9 ; Insomnia G47.00 and Anemia D64.9 [facility] [place] [address], [place] [address]- 7327 Dec, [facility] [place] [id number] [place] [address] 50181- 8834 Dec, [facility] [place] [address] [address]- 1645 Aug, [facility] [place] [address] [address]- 3227 Aug, [facility] [place] [address], [place] [address]- 2494 Aug, [facility] [place] [id number] [place] [address] 02517- 4651 Aug, [facility] [place] [address] [address]- 8116 Aug, [facility] [place] [address] [address]- 7755 Aug, [facility] [place] [address] [facility] [id number] [place] [address]- 7577 Aug, [facility] [place] [facility] [address] [id number] [place] [address]- 3562 Jul, [facility] [place] [facility] [address] [id number] [place] 7087 Jul, [facility] [place] [facility] [address] [id number] [place] [address]- 5325 Jul, [facility] [place] [facility] [address] [id number] [place] [address]- 3268 Jul, [facility] [place] [facility] [address] [id number] [place] [address]- 4345 Apr, [facility] [place] [facility] [address] [id number] [place] [address]- 0426 Apr, [facility] [place] [facility] [address] [id number] [place] [address]- 4940 Feb, [facility] [place] [facility] [address] [id number] [place] [address]- 3639 Feb, [facility] [place] [facility] [address] [id number] [place] [address]- 2698 Feb, [facility] [place] [facility] [address] [id number] [place] [address]- 5003 Feb, [facility] [place] [facility] [address] [id number] [place] [address]- 9057 January, [facility] [place] [facility] [address] [id number] [place] [address]- 3262 January, [facility] [place] [facility] [address] [id number] [place] [address]- 2976 January, [facility] [place] [facility] [address] [id number] [place] [address]- 8495 Dec, [facility] [place] [facility] [address] [id number] [place] [address]- 0017 Dec, [facility] [place] [facility] [address] [id number] [place] [address]- 6971 Dec, [facility] [place] [facility] [address] [id number] [place] [address]- 0664 Dec, [facility] [place] [facility] [address] [id number] [place] [address]- 3531 Nov, [facility] [place] [facility] [address] [id number] [place] [address]- 7966 Nov, [facility] [place] [facility] [address] [id number] [place] [address]- 1068 Nov, [facility] [place] [facility] [address] [id number] [place] [address]- 8949 Nov, [facility] [place] [facility] [address] [id number] [place] [address]- 7221 Nov, [facility] [place] [facility] [address] [id number] [place] [address]- 8052 Nov, [facility] [place] [facility] [address] [id number] [place] [address]- 5596 Oct, [facility] [place] [facility] [address] [id number] [place] [address]- 2089 Oct, [facility] [place] [facility] [address] [id number] [place] [address]- 1445 Oct, [facility] [place] [facility] [address] [id number] [place] [address]- 4196 Oct, [facility] [place] [facility] [address] [id number] [place] [address]- 3033 Oct, [facility] [place] [facility] [address] [id number] [place] [address]- 2237 Oct, [facility] [place] [facility] [address] [id number] [place] [address]- 7476 Oct, [facility] [place] [facility] [address] [id number] [place] [address]- 1562 Oct, [facility] [address] [id number] [place] [address]- 9366 Oct, [facility] [place] [facility] [address] [id number] [place] [address]- 4856 Oct, [facility] [place] [facility] [address] [id number] [place] [address]- 3916 Oct, [facility] [place] [facility] [address] [id number] [place] [address]- 8576 Oct, [facility] [place] [facility] [address] [id number] [place] [address]- 8741 Sep, [facility] [place] [facility] [address] [id number] [place] [address]- 3559 Sep, [facility] [place] [facility] [address] [id number] [place] [address]- 1061 Sep, [facility] [place] [facility] [address] [id number] [place] [address]- 6664 Sep, [facility] [place] [facility] [address] [id number] [place] [address]- 9641 Aug, [facility] [place] [facility] [address] [id number] [place] [address]- 2048 Aug, [facility] [place] [facility] [address] [id number] [place] [address]- 2002 Aug, [facility] [place] [facility] [address] [id number] [place] [address]- 4820 Aug, [facility] [place] [facility] [address] [id number] [place] [address]- 3329 Aug, [facility] [place] [facility] [address] [id number] [place] [address]- 5713 Aug, [facility] [place] [facility] [address] [id number] [place] [address]- 6762 Aug, IMMUNIZATIONS No Known Immunizations SOCIAL HISTORY Never Assessed REASON FOR VISIT Controlled Med Refill PLAN OF CARE VITAL SIGNS MEDICATIONS Medication Instructions Dosage Frequency Start Date End Date Duration Status Ativan 1 MG Orally twice a day as needed 1 tablet 28 days Active Zolpidem Tartrate 10 mg Orally [...] Hospitalization History Acute hypoxic resp distress--[facility] 07/28/16 Hospitalization History Denies any past psychiatric hospitalization
--- OUTSIDE RECORDS SUMMARY | 2018-10-07 10:27 | XMS REPORT ---
Author Author BRICE RAMIREZ Organization [facility] Address [address] [place] [address] Care Team Providers Care Carpet Installation Specialist Name Role Phone BRICE RAMIREZ Unavailable PROBLEMS Type Condition ICD9-CM Code FEZ53-AB Code Onset Dates Condition Status SNOMED Code Problem Psychophysiological insomnia F51.04 Active 438941709 Problem Eating disorder, unspecified F50.9 Active 16051126 Problem Adjustment disorder with depressed mood F43.21 Active 25781450 Problem COPD exacerbation J44.1 Active 408337635 Problem Insomnia G47.00 Active 430253935 Problem BMI 45.0-49.9, adult Z68.42 Active 866866544 Problem OCD (obsessive compulsive disorder) F42 Active 186786922 Problem Chronic cellulitis L03.90 Active 796770733 Problem Moderate persistent asthma without complication J45.40 Active 027990210 Problem Body mass index (BMI) of 40.0-44.9 in adult Z68.41 Active 226776242 Problem Severe persistent asthma with acute exacerbation J45.51 Active 855826358 Problem Other obesity due to excess calories E66.09 Active 30932733105511 Problem Obesity (BMI 30.0-34.9) E66.9 Active 144241713004230 Problem SVETLANA treated with BiPAP G47.33 Active 25288788 Problem Anxiety F41.9 Active 26134570 Problem Asthma J45.909 Active 624114496 Problem Iron deficiency anemia, unspecified iron deficiency anemia type D50.9 Active 07942036 Problem Asthma exacerbation J45.901 Active 446718123 Problem Reactive depression F32.9 Active 75653188 Problem Seasonal allergic rhinitis due to pollen J30.1 Active 47470737 Problem Other chronic pain G89.29 Active 65404647 Problem Habitual self-excoriation F42.4 Active 021528323 ALLERGIES No Information ENCOUNTERS Encounter Location Date Diagnosis [facility] [id number] [place] [address] 07117- 1926 Mar, [place] [address] 66804- 2224 Mar, Habitual self-excoriation F42.4 ; Anxiety F41.9 and Psychophysiological insomnia F51.04 [place] [address] 18967- 4022 Feb, [place] [address] 69797- 6436 Feb, Anxiety F41.9 and Psychophysiological insomnia F51.04 [place] [address] 53852- 5546 January, Acute pain of left knee M25.562 and BMI 50.0-59.9, adult Z68.43 [place] [address] 80059- 6394 January, [place] [address] 23998- 3423 January, COPD exacerbation J44.1 and Severe persistent asthma with acute exacerbation J45.51 [place] [address] 04648- 7436 January, Anxiety F41.9 and Psychophysiological insomnia F51.04 [place] [id number] [place] [address] 04127- 1339 January, COPD exacerbation J44.1 and Left medial knee pain M25.562 [place] [id number] [place] [address] 14463- 3120 Dec, COPD with exacerbation J44.1 ; BMI 45.0-49.9, adult Z68.42 ; SVETLANA treated with BiPAP G47.33 and Psychophysiological insomnia F51.04 [place] [id number] [place] [address] 33934- 2727 Dec, [place] [address] 23589- 6789 Dec, Acute pain of left knee M25.562 ; Unspecified fall, initial encounter W19.XXXA ; Unspecified place in unspecified non-institutional (private ) residence as the place of occurrence of the external cause Y92.009 ; BMI 45.0- 49.9, adult Z68.42 and Severe persistent asthma with acute exacerbation J45.51 [place] [address] 94839- 6462 Dec, Anxiety F41.9 and Psychophysiological insomnia F51.04 [place] [address] 98391- 6981 Nov, Psychophysiological insomnia F51.04 [place] [address] 33275- 3648 Oct, [place] [address] 02891- 1601 Oct, Anxiety F41.9 [place] [address] 10220- 3634 Oct, [place] [address] 13599- 7548 Oct, Severe persistent asthma with acute exacerbation J45.51 ; Tobacco abuse Z72.0 and BMI 45.0-49.9, adult Z68.42 [place] [address] 57149- 7315 Oct, Psychophysiological insomnia F51.04 [place] [address] 36843- 6606 Sep, Anxiety F41.9 [place] [address] 63277- 6088 Sep, Anxiety F41.9 and Habitual self-excoriation F42.[address] 15471- 0364 Sep, Psychophysiological insomnia F51.04 [facility] [address] 86716- 2040 Aug, Anxiety F41.9 [facility] [address] 34824- 4347 Aug, Asthma J45.909 [facility] [address] 01262- 9866 Aug, Anxiety F41.9 [facility] [address] 92846 -5257 Aug, Acute bronchitis, unspecified organism J20.9 [facility] [address] 44367- 4447 Aug, Psychophysiological insomnia F51.04 [place] [address] 61041- 9410 Jul, Therapeutic drug monitoring Z51.81 [place] [address] 31000- 0331 Jul, [place] [address] 16683- 6960 Jul, Habitual self-excoriation F42.4 [place] [address] 01517- 8196 08 Jul, 2017 [place] [address] 46302- 4117 Jul, [place] [address] 65302- 7870 Jun, SVETLANA treated with BiPAP G47.33 ; Moderate persistent asthma without complication J45.40 ; Anxiety F41.9 ; Other obesity due to excess calories E66.09 ; Body mass index (BMI) of 40.0-44.9 in adult Z68.41 ; Psychophysiological insomnia F51.04 and Encounter for immunization Z23 [facility] [address] 73862- 1408 Jun, [place] [id number] [place] [address] 97264- 7234 Jun, Habitual self-excoriation F42.4 ; Adjustment disorder with depressed mood F43.21 ; Psychophysiological insomnia F51.04 and Eating disorder , unspecified F50.9 [place] [id number] [place] [address] 53707- 3937 Jun, Visit for TB skin test Z11.1 [place] [id number] [place] [address] 80412- 2891 Jun, Habitual self-excoriation F42.4 and Psychophysiological insomnia F51.04 [place] [id number] [place] [address] 40667- 0398 Jun, Asthma J45.909 [place] [id number] [place] [address] 83965- 2033 May, Asthma J45.909 [place] [id number] [place] [address] 09118- 5963 May, [place] [id number] [place] [address] 07556- 7730 May, Habitual self-excoriation F42.4 and Psychophysiological insomnia F51.04 [place] [id number] [place] [address] 73663- 6686 Apr, Habitual self-excoriation F42.4 ; Adjustment disorder with depressed mood F43.21 ; Psychophysiological insomnia F51.04 and Eating disorder , unspecified F50.9 [place] [id number] [place] [address] 40569- 4529 Apr, [place] [id number] [place] [address] 53050- 7900 Apr, Habitual self-excoriation F42.4 ; Adjustment disorder with depressed mood F43.21 ; Psychophysiological insomnia F51.04 and Other group home (current) drug therapy Z79.899 [facility] [id number] [place] [address] 52680- 7391 Mar, [facility] [id number] [place] [address] 29393- 2616 Mar, [facility] [id number] [place] [address] 58859- 9520 Mar, Anxiety F41.9 [facility] [id number] [place] [address] 91975- 6652 Feb, Asthma J45.909 [facility] [address] 36177- 6580 Feb, [facility] [id number] [place] [address] 51542- 2427 Feb, Anxiety F41.9 [facility] [id number] [place] [address] 76180- 2364 Feb, Asthma exacerbation J45.901 and Seasonal allergic rhinitis due to pollen J30.1 [facility] [id number] [place] [address] 64918- 9963 January, [facility] [id number] [place] [address] 41819- 9766 January, Anxiety F41.9 [facility] [id number] [place] [address] 56786- 8092 Dec, Therapeutic drug monitoring Z51.81 [facility] [address] [place] [address] 68849- 9249 Dec, Anxiety F41.9 and Asthma J45.909 [facility] [id number] [place] [address] 60662- 8656 Nov, Asthma J45.909 [facility] [id number] [place] [address] 43697- 0222 Nov, Anxiety F41.9 [facility] [id number] [place] [address] 08243- 2485 Oct, Asthma exacerbation J45.901 ; Pain in right knee M25.561 ; Pain in left knee M25.562 and Open wound of eyebrow, left, subsequent encounter S01.102D [facility] [address] 08031- 5777 16 Oct, 2016 [facility] [address] 41287 -8129 Oct, Other viral agents as the cause of diseases classified elsewhere B97.89 and Acute upper respiratory infection, unspecified J06.9 [place] [address] 90417- 2443 Oct, [place] [address] 41122- 5991 Oct, [place] [address] 61640- 9455 Oct, Anxiety F41.9 [place] [address] 49488- 2473 Sep, [place] [address] 21611- 8337 Sep, SVETLANA treated with BiPAP G47.33 and Asthma J45.909 [place] [address] 72750- 9952 Sep, SVETLANA treated with BiPAP G47.33 ; Obesity (BMI 30.0-34.9) E66.9 and Reactive depression F32.[address] 90041- 8121 Sep, Anxiety F41.9 [place] [address] 65660- 5341 Aug, [place] [address] 66443- 8027 Aug, Insomnia G47.00 [facility] [id number] [place] [address] 03406- 7821 Aug, [facility] [id number] [place] [address] 403943- 5689 Aug, SVETLANA treated with BiPAP G47.33 and On supplemental oxygen therapy Z99.81 [facility] [address] 69841- 5043 Jul, On supplemental oxygen therapy Z99.81 ; Obesity (BMI 30.0- 34.9) E66.9 and SVETLANA treated with BiPAP G47.33 [facility] [id number] [place] [address] 26979- 9324 17 Jul, 2016 Mucus plugging of bronchi J98.09 ; On supplemental oxygen therapy Z99.81 ; Acute midline thoracic back pain M54.6 and SVETLANA treated with BiPAP G47.33 [facility] [id number] [place] [address] 40672- 5906 16 Jul, 2016 [facility] [id number] [place] [address] 73594- 7191 Jul, [facility] [id number] [place] [address] 42854- 9075 Jul, [facility] [id number] [place] [address] 34565- 2746 May, [facility] [id number] [place] [address] 76097- 5831 May, [facility] [id number] [place] [address] 37850- 8221 Apr, [facility] [id number] [place] [address] 42740103- 6406 Apr, [facility] [id number] [place] [address] 90199- 5635 Apr, Insomnia G47.00 ; Anemia D64.9 ; OCD (obsessive compulsive disorder) F42 ; Anxiety F41.9 ; Asthma J45.909 and Obesity (BMI 30.0-34.9) E66.9 [facility] [id number] [place] [address] 33661- 7286 Feb, [facility] [address] 26466- 2131 Feb, Insomnia G47.00 [facility] [address] 90765- 9343 Nov, [facility] [address] 19679- 6546 Nov, [facility] [address] 05643- 8390 Nov, [facility] [address] 61978- 9743 Nov, OCD (obsessive compulsive disorder) F42 ; Anxiety F41.9 ; Insomnia G47.00 ; Anemia D64.9 and Asthma J45.909 [facility] [address] 45597- 7278 Nov, [facility] [id number] [place] [address] 29864- 7163 Oct, [facility] [id number] [place] [address] 51013- 1585 Aug, OCD (obsessive compulsive disorder) F42 ; Chronic cellulitis L03.90 ; Anxiety F41.9 ; Insomnia G47.00 ; Anemia D64.9 and Asthma J45.909 [facility] [address] 15735- 5240 Aug, [facility] [id number] [place] [address] 59890- 1884 Jul, [facility] [address] 19593- 6859 Jul, OCD (obsessive compulsive disorder) F42 ; Chronic cellulitis L03.90 ; Anxiety F41.9 ; Insomnia G47.00 and Anemia D64.9 [facility] [id number] [place] [address] 09949- 7846 14 Dec, 2014 [facility] [id number] [place] [address] 76586- 3947 Dec, [facility] [id number] [place] [address] 24403- 8514 Aug, [facility] [id number] [place] [address] 49021- 8050 Aug, [facility] [id number] [place] [address] 35242- 3642 Aug, [facility] [id number] [place] [address] 76400- 6470 Aug, [facility] [id number] [place] [address] 89457- 9934 Aug, [facility] [id number] [place] [address] 45842- 2112 Aug, [facility] [id number] [place] [address] 23364- 9392 Aug, [facility] [address] [address]- 4161 Jul, [facility] [id number] [place] [address] 52126- 2842 Jul, [facility] [id number] [address]- 6092 Jul, [facility] [id number] [place] [address] 60411- 1383 Jul, [facility] [address] [address]- 4265 Apr, [facility] [id number] [place] [address]- 7260 Apr, [facility] [place] [facility] [address] [id number] [place] [address]- 8882 Feb, [facility] [place] [facility] [address] [id number] [place] [address]- 6889 Feb, [facility] [place] [facility] [address] [id number] [place] [address]- 8151 Feb, [facility] [place] [facility] [address] [id number] [place] [address]- 5876 Feb, [facility] [place] [facility] [address] [id number] [place] [address]- 0109 January, [facility] [place] [facility] [address] [id number] [place] [address]- 2002 January, [facility] [place] [facility] [address] [id number] [place] [address]- 5320 January, [facility] [place] [facility] [address] [id number] [place] [address]- 9925 Dec, [facility] [place] [facility] [address] [id number] [place] [address]- 4234 Dec, [facility] [place] [facility] [address] [id number] [place] [address]- 9668 Dec, [facility] [place] [facility] [address] [id number] [place] [address]- 1543 Dec, [facility] [place] [facility] [address] [id number] [place] [address]- 7240 Nov, [facility] [place] [facility] [address] [id number] [place] [address]- 6900 Nov, [facility] [place] [facility] [address] [id number] [place] [address]- 4333 Nov, [facility] [place] [facility] [address] [id number] [place] [address]- 5676 Nov, [facility] [place] [facility] [address] [id number] [place] [address]- 3259 Nov, [facility] [place] [facility] [address] [id number] [place] [address]- 1288 Nov, [facility] [place] [facility] [address] [id number] [place] [address]- 0906 Oct, [facility] [place] [facility] [address] [id number] [place] [address]- 6526 Oct, [facility] [place] [facility] [address] [id number] [place] [address]- 3793 Oct, [facility] [place] [facility] [address] [id number] [place] [address]- 8666 Oct, [facility] [place] [facility] [address] [id number] [place] [address]- 5529 Oct, [facility] [place] [facility] [address] [id number] [place] [address]- 0128 Oct, [facility] [place] [facility] [address] [id number] [place] [address]- 8092 Oct, [facility] [place] [facility] [address] [id number] [place] [address]- 1608 Oct, [facility] [place] [facility] [address] [id number] [place] [address]- 0769 Oct, [facility] [place] [facility] [address] [id number] [place] [address]- 3480 Oct, [facility] [place] [facility] [address] [id number] [place] [address]- 4677 Oct, [facility] [place] [facility] [address] [id number] [place] [address]- 7874 Oct, [facility] [place] [facility] [address] [id number] [place] [address]- 7831 Sep, [facility] [place] [facility] [id number] 2859 Sep, [facility] [id number] [address]- 9847 Sep, [facility] [address] [facility] [id number], [place] [address]- 7506 Sep, [facility] [id number]- 7889 Aug, [facility] [address], [place] [address]- 1095 Aug, [facility] [address] 8191 Aug, [facility] [address], [place] [address]- 4685 Aug, [facility] [address] [address]- 3773 Aug, [facility] [id number] [address]- 5096 Aug, [facility] [id number] [address]- 5909 Aug, IMMUNIZATIONS No Known Immunizations SOCIAL HISTORY Never Assessed REASON FOR VISIT Controlled Med Refill-zolpidem PLAN OF CARE VITAL SIGNS MEDICATIONS Medication Instructions Dosage Frequency Start Date End Date Duration Status Zolpidem Tartrate 10 mg Orally at bedtime as needed 1 tablet Active RESULTS No Results PROCEDURES No Known procedures INSTRUCTIONS MEDICATIONS ADMINISTERED No Known Medications MEDICAL (GENERAL) HISTORY Type Description Date Medical History asthma Medical History anxiety Medical History gastric bypass Medical History anemia Medical History sleep apnea treated with biPAP Surgical History gastric bypass 2002 Hospitalization History surgery Hospitalization History anemia Hospitalization History sepsis Hospitalization History Acute hypoxic resp distress--[facility] 07/28/16 Hospitalization History Denies any past psychiatric hospitalization
--- OUTSIDE RECORDS SUMMARY | 2018-10-07 10:27 | XMS REPORT ---
Author Author BRICE RAMIREZ Organization [facility] Address [address] [place] [address] Care Team Providers Care Lumber Tailer Name Role Phone BRICE RAMIREZ Unavailable PROBLEMS Type Condition ICD9-CM Code MYT83-OX Code Onset Dates Condition Status SNOMED Code Problem Psychophysiological insomnia F51.04 Active 661115645 Problem Eating disorder, unspecified F50.9 Active 81622694 Problem Adjustment disorder with depressed mood F43.21 Active 90283399 Problem COPD exacerbation J44.1 Active 220925126 Problem Insomnia G47.00 Active 280771691 Problem BMI 45.0-49.9, adult Z68.42 Active 664633458 Problem OCD (obsessive compulsive disorder) F42 Active 253599701 Problem Chronic cellulitis L03.90 Active 930551804 Problem Moderate persistent asthma without complication J45.40 Active 635540531 Problem Body mass index (BMI) of 40.0-44.9 in adult Z68.41 Active 472722790 Problem Severe persistent asthma with acute exacerbation J45.51 Active 101395447 Problem Other obesity due to excess calories E66.09 Active 60479728260782 Problem Obesity (BMI 30.0-34.9) E66.9 Active 966566217119147 Problem SVETLANA treated with BiPAP G47.33 Active 75867600 Problem Anxiety F41.9 Active 02841272 Problem Asthma J45.909 Active 955992829 Problem Iron deficiency anemia, unspecified iron deficiency anemia type D50.9 Active 78169355 Problem Asthma exacerbation J45.901 Active 067837394 Problem Reactive depression F32.9 Active 34836286 Problem Seasonal allergic rhinitis due to pollen J30.1 Active 46587242 Problem Other chronic pain G89.29 Active 86861350 Problem Habitual self-excoriation F42.4 Active 543828704 ALLERGIES No Information ENCOUNTERS Encounter Location Date Diagnosis [facility] [id number] [place] [address] 68455- 2825 Feb, [place] [id number] [place] [address] 50457- 5875 January, [place] [address] 38122- 1825 January, COPD exacerbation J44.1 and Severe persistent asthma with acute exacerbation J45.51 [place] [address] 64219- 3282 January, Anxiety F41.9 and Psychophysiological insomnia F51.04 [place] [address] 94495- 3776 January, COPD exacerbation J44.1 and Left medial knee pain M25.562 [place] [address] 04039- 9960 Dec, COPD with exacerbation J44.1 ; BMI 45.0-49.9, adult Z68.42 ; SVETLANA treated with BiPAP G47.33 ; Habitual self-excoriation F42.4 and Psychophysiological insomnia F51.04 [place] [address] 08470- 2215 Dec, [place] [id number] [place] [address] 52465- 9183 Dec, Acute pain of left knee M25.562 ; Unspecified fall, initial encounter W19.XXXA ; Unspecified place in unspecified non-institutional (private ) residence as the place of occurrence of the external cause Y92.009 ; BMI 45.0- 49.9, adult Z68.42 and Severe persistent asthma with acute exacerbation J45.51 [place] [address] 48417- 1999 Dec, Anxiety F41.9 and Psychophysiological insomnia F51.04 [place] [id number] [place] [address] 40890- 6733 Nov, Psychophysiological insomnia F51.04 [place] [id number] [place] [address] 06117- 6438 Oct, [facility] [address] 72052- 4345 Oct, Anxiety F41.9 [place] [address] 18176- 3538 Oct, [facility] [address] 60881- 8563 Oct, Severe persistent asthma with acute exacerbation J45.51 ; Tobacco abuse Z72.0 and BMI 45.0-49.9, adult Z68.42 [place] [address] 94634- 8275 Oct, Psychophysiological insomnia F51.04 [place] [address] 73910- 2099 Sep, Anxiety F41.9 [place] [address] 31021- 2643 Sep, Anxiety F41.9 and Habitual self-excoriation F42.4 [place] [address] 05359- 7718 Sep, Psychophysiological insomnia F51.04 [place] [address] 92726- 7788 Aug, Anxiety F41.9 [facility] [id number] [place] [address] 69679- 6473 Aug, Asthma J45.909 [place] [address] 43134- 6214 Aug, Anxiety F41.9 [facility] [id number] [place] [address] 43139 -9127 Aug, Acute bronchitis, unspecified organism J20.9 [facility] [address] [place] [address]- 6667 Aug, Psychophysiological insomnia F51.04 [place] [address] 00148- 3093 Jul, Therapeutic drug monitoring Z51.81 [place] [address] 43146- 2406 Jul, [place] [address] 39751- 3973 Jul, Habitual self-excoriation F42.4 [place] [address] 17666- 0884 08 Jul, 2017 [place] [address] 94843- 2445 Jul, [place] [address] 01696- 0662 Jun, SVETLANA treated with BiPAP G47.33 ; Moderate persistent asthma without complication J45.40 ; Anxiety F41.9 ; Other obesity due to excess calories E66.09 ; Body mass index (BMI) of 40.0-44.9 in adult Z68.41 ; Psychophysiological insomnia F51.04 and Encounter for immunization Z23 [place] [id number] [place] [address] 58051- 7618 Jun, [place] [address] 94670- 1139 Jun, Habitual self-excoriation F42.4 ; Adjustment disorder with depressed mood F43.21 ; Psychophysiological insomnia F51.04 and Eating disorder , unspecified F50.9 [place] [address] 20842- 0735 10 Jun, 2017 Visit for TB skin test Z11.1 [place] [address] 56586- 1628 Jun, Habitual self-excoriation F42.4 and Psychophysiological insomnia F51.04 [place] [address] [place] [address] 30975- 7662 Jun, Asthma J45.909 [facility] [id number] [place] [address] 69391- 6475 May, Asthma J45.909 [facility] [id number] [place] [address] 06580- 2860 May, [facility] [id number] [place] [address] 43631- 8857 May, Habitual self-excoriation F42.4 and Psychophysiological insomnia F51.04 [place] [id number] [place] [address] 60584- 5325 Apr, Habitual self-excoriation F42.4 ; Adjustment disorder with depressed mood F43.21 ; Psychophysiological insomnia F51.04 and Eating disorder , unspecified F50.9 [place] [id number] [place] [address] 61807- 7038 Apr, [place] [id number] [place] [address] 69548- 3660 Apr, Habitual self-excoriation F42.4 ; Adjustment disorder with depressed mood F43.21 ; Psychophysiological insomnia F51.04 and Other fpc (current) drug therapy Z79.899 [place] [address] [place] [address] 60061- 8403 Mar, [place] [id number] [place] [address] 90366- 6598 Mar, [facility] [id number] [place] [address] 23456- 7722 Mar, Anxiety F41.9 [place] [id number] [place] [address] 23843- 3182 Feb, Asthma J45.909 [place] [id number] [place] [address] 41699- 8737 Feb, [place] [id number] [place] [address] 74084- 9997 Feb, Anxiety F41.9 [place] [address] 75157- 3176 Feb, Asthma exacerbation J45.901 and Seasonal allergic rhinitis due to pollen J30.1 [place] [address] 78526- 7294 January, [place] [id number] [place] [address] 20984- 9389 January, Anxiety F41.[address] 66043- 7277 Dec, Therapeutic drug monitoring Z51.[address] 53342- 2119 Dec, Anxiety F41.9 and Asthma J45.909 [place] [id number] [place] [address] 86575- 2177 Nov, Asthma J45.909 [place] [address] 71002- 1768 Nov, Anxiety F41.9 [place] [id number] [place] [address] 73634- 2412 Oct, Asthma exacerbation J45.901 ; Pain in right knee M25.561 ; Pain in left knee M25.562 and Open wound of eyebrow, left, subsequent encounter S01.102D [place] [id number] [place] [address] 73060- 6676 16 Oct, 2016 [facility] [id number] [place] [address] 15064 -1554 Oct, Other viral agents as the cause of diseases classified elsewhere B97.89 and Acute upper respiratory infection, unspecified J06.[address] [place] [address]- 3368 10 Oct, 2016 [place] [id number] [place] [address] 98677- 2013 Oct, [place] [id number] [place] [address] 54321- 0816 02 Oct, 2016 Anxiety F41.9 [place] [address] 90786- 1795 Sep, [place] [id number] [place] [address] 45337- 7498 Sep, SVETLANA treated with BiPAP G47.33 and Asthma J45.909 [place] [id number] [place] [address] 60566- 1360 Sep, SVETLANA treated with BiPAP G47.33 ; Obesity (BMI 30.0-34.9) E66.9 and Reactive depression F32.9 [place] [id number] [place] [address] 80426- 3186 Sep, Anxiety F41.9 [place] [address] 19143- 6676 Aug, [place] [address] 20486- 3496 Aug, Insomnia G47.00 [place] [id number] [place] [address] 26882- 4553 Aug, [place] [id number] [place] [address] 19385- 2580 Aug, SVETLANA treated with BiPAP G47.33 and On supplemental oxygen therapy Z99.81 [place] [address] 62094- 7974 Jul, On supplemental oxygen therapy Z99.81 ; Obesity (BMI 30.0- 34.9) E66.9 and SVETLANA treated with BiPAP G47.33 [place] [address] [place] [address]- 6550 17 Jul, 2016 Mucus plugging of bronchi J98.09 ; On supplemental oxygen therapy Z99.81 ; Acute midline thoracic back pain M54.6 and SVETLANA treated with BiPAP G47.33 [facility] [id number] [place] [address] 41883- 6806 16 Jul, 2016 [facility] [address] 48495- 6733 Jul, [facility] [id number] [place] [address] 81387- 1248 Jul, [facility] [address] 46082- 4994 May, [facility] [id number] [place] [address] 94160- 6354 May, [facility] [address] 89961- 8790 Apr, [facility] [id number] [place] [address] 62956- 7398 Apr, [facility] [id number] [place] [address] 38210- 3257 Apr, Insomnia G47.00 ; Anemia D64.9 ; OCD (obsessive compulsive disorder) F42 ; Anxiety F41.9 ; Asthma J45.909 and Obesity (BMI 30.0-34.9) E66.9 [facility] [id number] [place] [address] 59302- 6716 Feb, [facility] [id number] [place] [address] 37411- 6184 Feb, Insomnia G47.00 [facility] [id number] [place] [address] 93203- 2449 Nov, [facility] [id number] [place] [address] 72255- 8337 Nov, [facility] [address] [address]- 9326 Nov, [facility] [id number] [place] [address] 03002- 5592 Nov, OCD (obsessive compulsive disorder) F42 ; Anxiety F41.9 ; Insomnia G47.00 ; Anemia D64.9 and Asthma J45.909 [facility] [id number] [place] [address] 51361- 6192 Nov, [facility] [id number] [place] [address] 78013- 8715 Oct, [facility] [id number] [place] [address] 12729- 4691 Aug, OCD (obsessive compulsive disorder) F42 ; Chronic cellulitis L03.90 ; Anxiety F41.9 ; Insomnia G47.00 ; Anemia D64.9 and Asthma J45.909 [facility] [id number] [place] [address] 45520- 5811 Aug, [facility] [id number] [place] [address] 96939- 4101 Jul, [facility] [id number] [place] [address] 60119- 4112 Jul, OCD (obsessive compulsive disorder) F42 ; Chronic cellulitis L03.90 ; Anxiety F41.9 ; Insomnia G47.00 and Anemia D64.9 [facility] [address] [address]- 0106 Dec, [facility] [id number] [place] [address] 55964- 4205 Dec, [facility] [id number] [place] [address] 50888- 7826 Aug, [facility] [address] [address]- 9279 Aug, [facility] [address] [place] [address]- 1881 14 Aug, 2014 [facility] [place] [facility] [address] [id number] [place] [address]- 4146 Aug, [facility] [place] [facility] [address] [id number] [place] [address]- 5593 Aug, [facility] [place] [facility] [address] [id number] [place] [address]- 0210 Aug, [facility] [place] [facility] [address] [id number] [place] [address]- 1384 Aug, [facility] [place] [facility] [address] [id number] [place] [address]- 2425 Jul, [facility] [place] [facility] [address] [id number] [place] [address]- 8136 Jul, [facility] [place] [facility] [address] [id number] [place] [address]- 4865 Jul, [facility] [place] [facility] [address] [id number] [place] [address]- 6326 Jul, [facility] [place] [facility] [address] [id number] [place] [address]- 6996 Apr, [facility] [place] [facility] [address] [id number] [place] [address]- 9327 Apr, [facility] [place] [facility] [address] [id number] [place] [address]- 8677 Feb, [facility] [place] [facility] [address] [id number] [place] [address]- 9035 Feb, [facility] [place] [facility] [address] [id number] [place] [address]- 8692 Feb, [facility] [place] [facility] [address] [id number] [place] [address]- 5504 Feb, [facility] [place] [facility] [address] [id number] [place] [address]- 1810 January, [facility] [place] [facility] [address] [id number] [place] [address]- 7296 January, [facility] [place] [facility] [address] [id number] [place] [address]- 4023 January, [facility] [place] [facility] [address] [id number] [place] [address]- 1906 Dec, [facility] [place] [facility] [address] [id number] [place] [address]- 2942 Dec, [facility] [place] [facility] [address] [id number] [place] [address]- 2952 Dec, [facility] [place] [facility] [address] [id number] [place] [address]- 8351 Dec, [facility] [place] [facility] [address] [id number] [place] [address]- 3411 Nov, [facility] [place] [facility] [address] [id number] [place] [address]- 7134 Nov, [facility] [place] [facility] [address] [id number] [place] [address]- 0272 Nov, [facility] [place] [facility] [address] [id number] [place] [address]- 8094 Nov, [facility] [place] [facility] [address] [id number] [place] [address]- 6246 Nov, [facility] [place] [facility] [address] [id number] [place] [address]- 1463 Nov, [facility] [place] [facility] [address] [id number] [place] [address]- 1731 Oct, [facility] [place] [facility] [address] [id number] [place] [address]- 2628 Oct, [facility] [place] [facility] [address] [id number] [place] 8998 Oct, [facility] [place] [facility] [address] [id number] [address]- 9136 Oct, [facility] [place] [facility] [address] [id number] [place] [address]- 8126 Oct, [facility] [place] [facility] [address] [id number] [place]- 9256 Oct, [facility] [place] [facility] [address] [id number] [place] [address]- 3516 Oct, [facility] [place] [facility] [address] [id number] [place] [address]- 2547 Oct, [facility] [place] [facility] [address] [id number] [place] [address]- 2672 Oct, [facility] [place] [facility] [address] [facility] [id number] [place] [address]- 8446 Oct, [facility] [place] [facility] [id number] [place] [address]- 0433 Oct, [facility] [place] [facility] [address] [id number] [place] [address]- 5767 Oct, [facility] [place] [facility] [id number] [place] [address]- 7137 Sep, [facility] [place] [facility] [address] [facility] [id number] [place] [address]- 1543 Sep, [facility] [place] [facility] [address] [facility] [id number] [place] [address]- 4291 Sep, [facility] [place] [facility] [address] [id number] [place] [address]- 3211 Sep, [facility] [place] [facility] [address] [id number] [place] [address]- 3456 Aug, [facility] [place] [facility] [address] [id number] [place] 9327 Aug, [facility] [place] [facility] [address] [facility] [id number] [place] 0824 Aug, [facility] [address] [facility] [id number], [place] [address]- 3815 Aug, [facility] [id number] [address]- 4975 Aug, [facility] [address] [facility] [id number], [place] [address]- 9605 Aug, [facility] [address] [facility] [id number], [place] [address]- 8055 Aug, IMMUNIZATIONS No Known Immunizations SOCIAL HISTORY Never Assessed REASON FOR VISIT Phone Call PLAN OF CARE VITAL SIGNS MEDICATIONS Unknown [...] History sepsis Hospitalization History Acute hypoxic resp distress--[facility] 07/28/16 Hospitalization History Denies any past psychiatric hospitalization
--- OUTSIDE RECORDS SUMMARY | 2018-10-07 10:28 | XMS REPORT ---
Author Author BRICE RAMIREZ Organization [facility] Address [address] [place] [address] Care Team Providers Care Adolescent Counselor Name Role Phone BRICE RAMIREZ Unavailable PROBLEMS Type Condition ICD9-CM Code YVR29-AD Code Onset Dates Condition Status SNOMED Code Problem Psychophysiological insomnia F51.04 Active 200263947 Problem Eating disorder, unspecified F50.9 Active 75380817 Problem Adjustment disorder with depressed mood F43.21 Active 94470331 Problem COPD exacerbation J44.1 Active 861701118 Problem Insomnia G47.00 Active 018164471 Problem BMI 45.0-49.9, adult Z68.42 Active 367345346 Problem OCD (obsessive compulsive disorder) F42 Active 037926804 Problem Chronic cellulitis L03.90 Active 264661415 Problem Moderate persistent asthma without complication J45.40 Active 766150530 Problem Body mass index (BMI) of 40.0-44.9 in adult Z68.41 Active 439837529 Problem Severe persistent asthma with acute exacerbation J45.51 Active 444642537 Problem Other obesity due to excess calories E66.09 Active 18442995001196 Problem Obesity (BMI 30.0-34.9) E66.9 Active 660335979569368 Problem SVETLANA treated with BiPAP G47.33 Active 38597766 Problem Anxiety F41.9 Active 86360765 Problem Asthma J45.909 Active 636046277 Problem Iron deficiency anemia, unspecified iron deficiency anemia type D50.9 Active 91244055 Problem Asthma exacerbation J45.901 Active 646014836 Problem Reactive depression F32.9 Active 29129099 Problem Seasonal allergic rhinitis due to pollen J30.1 Active 79085902 Problem Other chronic pain G89.29 Active 08294103 Problem Habitual self-excoriation F42.4 Active 832709164 ALLERGIES No Information ENCOUNTERS Encounter Location Date Diagnosis [facility] [id number] [place] [address] 87756- 8201 Mar, [place] [address] 69836- 1671 Mar, Habitual self-excoriation F42.4 ; Anxiety F41.9 and Psychophysiological insomnia F51.04 [place] [address] 35242- 3365 Feb, [place] [address] 07709- 1605 Feb, Anxiety F41.9 and Psychophysiological insomnia F51.04 [place] [address] 62144- 0171 January, Acute pain of left knee M25.562 and BMI 50.0-59.9, adult Z68.43 [place] [address] 70263- 4518 January, [place] [address] 16177- 3539 January, COPD exacerbation J44.1 and Severe persistent asthma with acute exacerbation J45.51 [place] [address] 28955- 6083 January, Anxiety F41.9 and Psychophysiological insomnia F51.04 [place] [id number] [place] [address] 78876- 8921 January, COPD exacerbation J44.1 and Left medial knee pain M25.562 [place] [id number] [place] [address] 86897- 9665 Dec, COPD with exacerbation J44.1 ; BMI 45.0-49.9, adult Z68.42 ; SVETLANA treated with BiPAP G47.33 and Psychophysiological insomnia F51.04 [place] [id number] [place] [address] 85099- 1302 Dec, [place] [address] 98874- 7186 Dec, Acute pain of left knee M25.562 ; Unspecified fall, initial encounter W19.XXXA ; Unspecified place in unspecified non-institutional (private ) residence as the place of occurrence of the external cause Y92.009 ; BMI 45.0- 49.9, adult Z68.42 and Severe persistent asthma with acute exacerbation J45.51 [place] [address] 82571- 2070 Dec, Anxiety F41.9 and Psychophysiological insomnia F51.04 [place] [address] 87326- 2485 Nov, Psychophysiological insomnia F51.04 [place] [address] 42688- 2164 Oct, [place] [address] 52222- 3591 Oct, Anxiety F41.9 [place] [address] 90392- 8629 Oct, [place] [address] 56232- 6211 Oct, Severe persistent asthma with acute exacerbation J45.51 ; Tobacco abuse Z72.0 and BMI 45.0-49.9, adult Z68.42 [place] [address] 10635- 1066 Oct, Psychophysiological insomnia F51.04 [place] [address] 29662- 0406 Sep, Anxiety F41.9 [place] [address] 13781- 5066 Sep, Anxiety F41.9 and Habitual self-excoriation F42.[address] 24676- 9091 Sep, Psychophysiological insomnia F51.04 [facility] [address] 36722- 4727 Aug, Anxiety F41.9 [facility] [address] 96375- 5057 Aug, Asthma J45.909 [facility] [address] 81617- 0130 Aug, Anxiety F41.9 [facility] [address] 79633 -5923 Aug, Acute bronchitis, unspecified organism J20.9 [facility] [address] 66056- 3648 Aug, Psychophysiological insomnia F51.04 [place] [address] 55311- 3698 Jul, Therapeutic drug monitoring Z51.81 [place] [address] 53312- 8613 Jul, [place] [address] 54155- 9658 Jul, Habitual self-excoriation F42.4 [place] [address] 59183- 3304 08 Jul, 2017 [place] [address] 41936- 0527 Jul, [place] [address] 37899- 6814 Jun, SVETLANA treated with BiPAP G47.33 ; Moderate persistent asthma without complication J45.40 ; Anxiety F41.9 ; Other obesity due to excess calories E66.09 ; Body mass index (BMI) of 40.0-44.9 in adult Z68.41 ; Psychophysiological insomnia F51.04 and Encounter for immunization Z23 [facility] [address] 25967- 0178 Jun, [place] [id number] [place] [address] 00123- 8824 Jun, Habitual self-excoriation F42.4 ; Adjustment disorder with depressed mood F43.21 ; Psychophysiological insomnia F51.04 and Eating disorder , unspecified F50.9 [place] [id number] [place] [address] 09033- 3878 Jun, Visit for TB skin test Z11.1 [place] [id number] [place] [address] 32428- 7531 Jun, Habitual self-excoriation F42.4 and Psychophysiological insomnia F51.04 [place] [id number] [place] [address] 61722- 3356 Jun, Asthma J45.909 [place] [id number] [place] [address] 73131- 0841 May, Asthma J45.909 [place] [id number] [place] [address] 57937- 3199 May, [place] [id number] [place] [address] 07675- 4071 May, Habitual self-excoriation F42.4 and Psychophysiological insomnia F51.04 [place] [id number] [place] [address] 04054- 9552 Apr, Habitual self-excoriation F42.4 ; Adjustment disorder with depressed mood F43.21 ; Psychophysiological insomnia F51.04 and Eating disorder , unspecified F50.9 [place] [id number] [place] [address] 81034- 4314 Apr, [place] [id number] [place] [address] 92299- 3595 Apr, Habitual self-excoriation F42.4 ; Adjustment disorder with depressed mood F43.21 ; Psychophysiological insomnia F51.04 and Other group home (current) drug therapy Z79.899 [facility] [id number] [place] [address] 47707- 6455 Mar, [facility] [id number] [place] [address] 94699- 5486 Mar, [facility] [id number] [place] [address] 79930- 1431 Mar, Anxiety F41.9 [facility] [id number] [place] [address] 13982- 2216 Feb, Asthma J45.909 [facility] [address] 82111- 0973 Feb, [facility] [id number] [place] [address] 43378- 0061 Feb, Anxiety F41.9 [facility] [id number] [place] [address] 69186- 0364 Feb, Asthma exacerbation J45.901 and Seasonal allergic rhinitis due to pollen J30.1 [facility] [id number] [place] [address] 52883- 2819 January, [facility] [id number] [place] [address] 74139- 9493 January, Anxiety F41.9 [facility] [id number] [place] [address] 08210- 8864 Dec, Therapeutic drug monitoring Z51.81 [facility] [address] [place] [address] 46528- 3233 Dec, Anxiety F41.9 and Asthma J45.909 [facility] [id number] [place] [address] 79575- 0586 Nov, Asthma J45.909 [facility] [id number] [place] [address] 16257- 2540 Nov, Anxiety F41.9 [facility] [id number] [place] [address] 22766- 6280 Oct, Asthma exacerbation J45.901 ; Pain in right knee M25.561 ; Pain in left knee M25.562 and Open wound of eyebrow, left, subsequent encounter S01.102D [facility] [address] 49867- 4027 16 Oct, 2016 [facility] [address] 62802 -0527 Oct, Other viral agents as the cause of diseases classified elsewhere B97.89 and Acute upper respiratory infection, unspecified J06.9 [place] [address] 82712- 0800 Oct, [place] [address] 51302- 2743 Oct, [place] [address] 04770- 2900 Oct, Anxiety F41.9 [place] [address] 11946- 4302 Sep, [place] [address] 29445- 5510 Sep, SVETLANA treated with BiPAP G47.33 and Asthma J45.909 [place] [address] 99558- 2691 Sep, SVETLANA treated with BiPAP G47.33 ; Obesity (BMI 30.0-34.9) E66.9 and Reactive depression F32.[address] 90680- 9661 Sep, Anxiety F41.9 [place] [address] 25823- 2790 Aug, [place] [address] 58278- 6102 Aug, Insomnia G47.00 [facility] [id number] [place] [address] 05762- 6209 Aug, [facility] [id number] [place] [address] 067943- 2253 Aug, SVETLANA treated with BiPAP G47.33 and On supplemental oxygen therapy Z99.81 [facility] [address] 46147- 9656 Jul, On supplemental oxygen therapy Z99.81 ; Obesity (BMI 30.0- 34.9) E66.9 and SVETLANA treated with BiPAP G47.33 [facility] [id number] [place] [address] 90708- 9923 17 Jul, 2016 Mucus plugging of bronchi J98.09 ; On supplemental oxygen therapy Z99.81 ; Acute midline thoracic back pain M54.6 and SVETLANA treated with BiPAP G47.33 [facility] [id number] [place] [address] 34323- 9668 16 Jul, 2016 [facility] [id number] [place] [address] 50865- 4895 Jul, [facility] [id number] [place] [address] 51469- 3175 Jul, [facility] [id number] [place] [address] 17924- 9938 May, [facility] [id number] [place] [address] 00358- 8221 May, [facility] [id number] [place] [address] 64354- 5118 Apr, [facility] [id number] [place] [address] [id number]- 1801 Apr, [facility] [id number] [place] [address] 59418- 0689 Apr, Insomnia G47.00 ; Anemia D64.9 ; OCD (obsessive compulsive disorder) F42 ; Anxiety F41.9 ; Asthma J45.909 and Obesity (BMI 30.0-34.9) E66.9 [facility] [id number] [place] [address] 59276- 1099 Feb, [facility] [address] 10133- 8594 Feb, Insomnia G47.00 [facility] [address] 79267- 6824 Nov, [facility] [address] 01821- 4208 Nov, [facility] [address] 63733- 7250 Nov, [facility] [address] 52955- 2660 Nov, OCD (obsessive compulsive disorder) F42 ; Anxiety F41.9 ; Insomnia G47.00 ; Anemia D64.9 and Asthma J45.909 [facility] [address] 46997- 5281 Nov, [facility] [id number] [place] [address] 67624- 1778 Oct, [facility] [id number] [place] [address] 37958- 9086 Aug, OCD (obsessive compulsive disorder) F42 ; Chronic cellulitis L03.90 ; Anxiety F41.9 ; Insomnia G47.00 ; Anemia D64.9 and Asthma J45.909 [facility] [address] 03859- 2224 Aug, [facility] [id number] [place] [address] 09540- 9522 Jul, [facility] [address] 25725- 5365 Jul, OCD (obsessive compulsive disorder) F42 ; Chronic cellulitis L03.90 ; Anxiety F41.9 ; Insomnia G47.00 and Anemia D64.9 [facility] [id number] [place] [address] 85844- 5156 14 Dec, 2014 [facility] [id number] [place] [address] 27754- 3203 Dec, [facility] [id number] [place] [address] 25784- 7918 Aug, [facility] [id number] [place] [address] 99785- 1077 Aug, [facility] [id number] [place] [address] 27062- 6163 Aug, [facility] [id number] [place] [address] 83498- 5876 Aug, [facility] [id number] [place] [address] 75934- 9911 Aug, [facility] [id number] [place] [address] 67956- 2993 Aug, [facility] [id number] [place] [address] 54213- 0944 Aug, [facility] [address] [address]- 4972 Jul, [facility] [address] [place] [address] 90511- 2939 Jul, [facility] [id number] [address]- 4413 Jul, [facility] [id number] [place] [address] 46389- 6071 Jul, [facility] [address] [address]- 5193 Apr, [facility] [id number] [place] [address]- 4218 Apr, [facility] [place] [facility] [address] [id number] [place] [address]- 8129 Feb, [facility] [place] [facility] [address] [id number] [place] [address]- 0040 Feb, [facility] [place] [facility] [address] [id number] [place] [address]- 6551 Feb, [facility] [place] [facility] [address] [id number] [place] [address]- 1371 Feb, [facility] [place] [facility] [address] [id number] [place] [address]- 4770 January, [facility] [place] [facility] [address] [id number] [place] [address]- 6069 January, [facility] [place] [facility] [address] [id number] [place] [address]- 6938 January, [facility] [place] [facility] [address] [id number] [place] [address]- 3589 Dec, [facility] [place] [facility] [address] [id number] [place] [address]- 4867 Dec, [facility] [place] [facility] [address] [id number] [place] [address]- 7714 Dec, [facility] [place] [facility] [address] [id number] [place] [address]- 5173 Dec, [facility] [place] [facility] [address] [id number] [place] [address]- 3033 Nov, [facility] [place] [facility] [address] [id number] [place] [address]- 1457 Nov, [facility] [place] [facility] [address] [id number] [place] [address]- 8159 Nov, [facility] [place] [facility] [address] [id number] [place] [address]- 1791 Nov, [facility] [place] [facility] [address] [id number] [place] [address]- 7988 Nov, [facility] [place] [facility] [address] [id number] [place] [address]- 1433 Nov, [facility] [place] [facility] [address] [id number] [place] [address]- 2289 Oct, [facility] [place] [facility] [address] [id number] [place] [address]- 7221 Oct, [facility] [place] [facility] [address] [id number] [place] [address]- 4161 Oct, [facility] [place] [facility] [address] [id number] [place] [address]- 7976 Oct, [facility] [place] [facility] [address] [id number] [place] [address]- 7182 Oct, [facility] [place] [facility] [address] [id number] [place] [address]- 9324 Oct, [facility] [place] [facility] [address] [id number] [place] [address]- 2290 Oct, [facility] [place] [facility] [address] [id number] [place] [address]- 1993 Oct, [facility] [place] [facility] [address] [id number] [place] [address]- 2050 Oct, [facility] [place] [facility] [address] [id number] [place] [address]- 0988 Oct, [facility] [place] [facility] [address] [id number] [place] [address]- 6610 Oct, [facility] [place] [facility] [address] [id number] [place] [address]- 6179 Oct, [facility] [place] [facility] [address] [id number] [place] [address]- 3130 Sep, [facility] [place] [facility] [id number] [address]- 7094 Sep, [facility] [id number] [address]- 8740 Sep, [facility] [address] [address]- 8960 Sep, [facility] [id number] [address]- 3966 Aug, [facility] [address] [address]- 0255 Aug, [facility] [address] [address]- 4376 Aug, [facility] [address] [address]- 3724 Aug, [facility] [address] [address]- 6865 Aug, [facility] [id number] [address]- 2089 Aug, [facility] [id number] [address]- 3398 Aug, IMMUNIZATIONS No Known Immunizations SOCIAL HISTORY [...] History sepsis Hospitalization History Acute hypoxic resp distress--[facility] 07/28/16 Hospitalization History Denies any past psychiatric hospitalization
--- OUTSIDE RECORDS SUMMARY | 2018-10-07 10:28 | XMS REPORT ---
Author Author BRICE RAMIREZ Organization [facility] Address [address] [place] [address] Care Team Providers Care Safety Advisor Name Role Phone BRICE RAMIREZ Unavailable PROBLEMS Type Condition ICD9-CM Code DZG53-JP Code Onset Dates Condition Status SNOMED Code Problem Psychophysiological insomnia F51.04 Active 815025997 Problem Eating disorder, unspecified F50.9 Active 78370459 Problem Adjustment disorder with depressed mood F43.21 Active 87225286 Problem COPD exacerbation J44.1 Active 451575186 Problem Insomnia G47.00 Active 676738976 Problem BMI 45.0-49.9, adult Z68.42 Active 568544066 Problem OCD (obsessive compulsive disorder) F42 Active 872423298 Problem Chronic cellulitis L03.90 Active 385234345 Problem Moderate persistent asthma without complication J45.40 Active 095264869 Problem Body mass index (BMI) of 40.0-44.9 in adult Z68.41 Active 951734288 Problem Severe persistent asthma with acute exacerbation J45.51 Active 612702425 Problem Other obesity due to excess calories E66.09 Active 36902380961137 Problem Obesity (BMI 30.0-34.9) E66.9 Active 193767465519128 Problem SVETLANA treated with BiPAP G47.33 Active 73106884 Problem Anxiety F41.9 Active 63527620 Problem Asthma J45.909 Active 758806424 Problem Iron deficiency anemia, unspecified iron deficiency anemia type D50.9 Active 09534336 Problem Asthma exacerbation J45.901 Active 155307411 Problem Reactive depression F32.9 Active 88947084 Problem Seasonal allergic rhinitis due to pollen J30.1 Active 93911207 Problem Other chronic pain G89.29 Active 87420132 Problem Habitual self-excoriation F42.4 Active 432341922 ALLERGIES No Information ENCOUNTERS Encounter Location Date Diagnosis [facility] [id number] [place] [address] 12082- 9772 Mar, [place] [address] 05362- 2146 Mar, Habitual self-excoriation F42.4 ; Anxiety F41.9 and Psychophysiological insomnia F51.04 [place] [address] 43235- 2040 Feb, [place] [address] 09625- 0192 Feb, Anxiety F41.9 and Psychophysiological insomnia F51.04 [place] [address] 02024- 1387 January, Acute pain of left knee M25.562 and BMI 50.0-59.9, adult Z68.43 [place] [address] 95465- 9036 January, [place] [address] 71444- 8033 January, COPD exacerbation J44.1 and Severe persistent asthma with acute exacerbation J45.51 [place] [address] 27448- 8509 January, Anxiety F41.9 and Psychophysiological insomnia F51.04 [place] [id number] [place] [address] 69361- 2509 January, COPD exacerbation J44.1 and Left medial knee pain M25.562 [place] [id number] [place] [address] 35321- 3674 Dec, COPD with exacerbation J44.1 ; BMI 45.0-49.9, adult Z68.42 ; SVETLANA treated with BiPAP G47.33 and Psychophysiological insomnia F51.04 [place] [id number] [place] [address] 94525- 8058 Dec, [place] [address] 96710- 2403 Dec, Acute pain of left knee M25.562 ; Unspecified fall, initial encounter W19.XXXA ; Unspecified place in unspecified non-institutional (private ) residence as the place of occurrence of the external cause Y92.009 ; BMI 45.0- 49.9, adult Z68.42 and Severe persistent asthma with acute exacerbation J45.51 [place] [address] 94016- 5529 Dec, Anxiety F41.9 and Psychophysiological insomnia F51.04 [place] [address] 73681- 5691 Nov, Psychophysiological insomnia F51.04 [place] [address] 99279- 9175 Oct, [place] [address] 16033- 9052 Oct, Anxiety F41.9 [place] [address] 89439- 8537 Oct, [place] [address] 51646- 1582 Oct, Severe persistent asthma with acute exacerbation J45.51 ; Tobacco abuse Z72.0 and BMI 45.0-49.9, adult Z68.42 [place] [address] 35940- 4508 Oct, Psychophysiological insomnia F51.04 [place] [address] 80597- 1744 Sep, Anxiety F41.9 [place] [address] 56850- 4271 Sep, Anxiety F41.9 and Habitual self-excoriation F42.[address] 94276- 3076 Sep, Psychophysiological insomnia F51.04 [facility] [address] 97550- 0617 Aug, Anxiety F41.9 [facility] [address] 89674- 8305 Aug, Asthma J45.909 [facility] [address] 56374- 6947 Aug, Anxiety F41.9 [facility] [address] 25071 -4617 Aug, Acute bronchitis, unspecified organism J20.9 [facility] [address] 69302- 2354 Aug, Psychophysiological insomnia F51.04 [place] [address] 05858- 8429 Jul, Therapeutic drug monitoring Z51.81 [place] [address] 63735- 9722 Jul, [place] [address] 31291- 3796 Jul, Habitual self-excoriation F42.4 [place] [address] 57843- 8997 08 Jul, 2017 [place] [address] 38209- 5425 Jul, [place] [address] 64983- 6839 Jun, SVETLANA treated with BiPAP G47.33 ; Moderate persistent asthma without complication J45.40 ; Anxiety F41.9 ; Other obesity due to excess calories E66.09 ; Body mass index (BMI) of 40.0-44.9 in adult Z68.41 ; Psychophysiological insomnia F51.04 and Encounter for immunization Z23 [facility] [address] 18122- 3528 Jun, [place] [id number] [place] [address] 74956- 4628 Jun, Habitual self-excoriation F42.4 ; Adjustment disorder with depressed mood F43.21 ; Psychophysiological insomnia F51.04 and Eating disorder , unspecified F50.9 [place] [id number] [place] [address] 37666- 2205 Jun, Visit for TB skin test Z11.1 [place] [id number] [place] [address] 06592- 7617 Jun, Habitual self-excoriation F42.4 and Psychophysiological insomnia F51.04 [place] [id number] [place] [address] 05635- 3529 Jun, Asthma J45.909 [place] [id number] [place] [address] 96503- 0785 May, Asthma J45.909 [place] [id number] [place] [address] 66747- 2919 May, [place] [id number] [place] [address] 14120- 4107 May, Habitual self-excoriation F42.4 and Psychophysiological insomnia F51.04 [place] [id number] [place] [address] 04504- 5380 Apr, Habitual self-excoriation F42.4 ; Adjustment disorder with depressed mood F43.21 ; Psychophysiological insomnia F51.04 and Eating disorder , unspecified F50.9 [place] [id number] [place] [address] 10285- 7090 Apr, [place] [id number] [place] [address] 19697- 7339 Apr, Habitual self-excoriation F42.4 ; Adjustment disorder with depressed mood F43.21 ; Psychophysiological insomnia F51.04 and Other custodial (current) drug therapy Z79.899 [facility] [id number] [place] [address] 95230- 9029 Mar, [facility] [id number] [place] [address] 47790- 3216 Mar, [facility] [id number] [place] [address] 42080- 1555 Mar, Anxiety F41.9 [facility] [id number] [place] [address] 82843- 5737 Feb, Asthma J45.909 [facility] [address] 66607- 0603 Feb, [facility] [id number] [place] [address] 80387- 2035 Feb, Anxiety F41.9 [facility] [id number] [place] [address] 26421- 7757 Feb, Asthma exacerbation J45.901 and Seasonal allergic rhinitis due to pollen J30.1 [facility] [id number] [place] [address] 15278- 9817 January, [facility] [id number] [place] [address] 95772- 0591 January, Anxiety F41.9 [facility] [id number] [place] [address] 49333- 3669 Dec, Therapeutic drug monitoring Z51.81 [facility] [address] [place] [address] 01994- 4443 Dec, Anxiety F41.9 and Asthma J45.909 [facility] [id number] [place] [address] 12130- 8226 Nov, Asthma J45.909 [facility] [id number] [place] [address] 41831- 1132 Nov, Anxiety F41.9 [facility] [id number] [place] [address] 72289- 2379 Oct, Asthma exacerbation J45.901 ; Pain in right knee M25.561 ; Pain in left knee M25.562 and Open wound of eyebrow, left, subsequent encounter S01.102D [facility] [address] 18974- 1160 16 Oct, 2016 [facility] [address] 92300 -8465 Oct, Other viral agents as the cause of diseases classified elsewhere B97.89 and Acute upper respiratory infection, unspecified J06.9 [place] [address] 64214- 3761 Oct, [place] [address] 44170- 8862 Oct, [place] [address] 91060- 9100 Oct, Anxiety F41.9 [place] [address] 93175- 7440 Sep, [place] [address] 14916- 7874 Sep, SVETLANA treated with BiPAP G47.33 and Asthma J45.909 [place] [address] 21167- 2162 Sep, SVETLANA treated with BiPAP G47.33 ; Obesity (BMI 30.0-34.9) E66.9 and Reactive depression F32.[address] 96802- 4533 Sep, Anxiety F41.9 [place] [address] 18214- 7009 Aug, [place] [address] 09631- 5904 Aug, Insomnia G47.00 [facility] [id number] [place] [address] 25477- 4641 Aug, [facility] [id number] [place] [address] 821726- 3329 Aug, SVETLANA treated with BiPAP G47.33 and On supplemental oxygen therapy Z99.81 [facility] [address] 58605- 7572 Jul, On supplemental oxygen therapy Z99.81 ; Obesity (BMI 30.0- 34.9) E66.9 and SVETLANA treated with BiPAP G47.33 [facility] [id number] [place] [address] 68968- 9026 17 Jul, 2016 Mucus plugging of bronchi J98.09 ; On supplemental oxygen therapy Z99.81 ; Acute midline thoracic back pain M54.6 and SVETLANA treated with BiPAP G47.33 [facility] [id number] [place] [address] 72178- 7455 16 Jul, 2016 [facility] [id number] [place] [address] 96099- 6497 Jul, [facility] [id number] [place] [address] 23435- 3478 Jul, [facility] [id number] [place] [address] 53539- 0453 May, [facility] [id number] [place] [address] 95303- 0616 May, [facility] [id number] [place] [address] 56036- 0131 Apr, [facility] [id number] [place] [address] 32133715- 9045 Apr, [facility] [id number] [place] [address] 88949- 5662 Apr, Insomnia G47.00 ; Anemia D64.9 ; OCD (obsessive compulsive disorder) F42 ; Anxiety F41.9 ; Asthma J45.909 and Obesity (BMI 30.0-34.9) E66.9 [facility] [id number] [place] [address] 90608- 5400 Feb, [facility] [address] 92228- 0788 Feb, Insomnia G47.00 [facility] [address] 11045- 9649 Nov, [facility] [address] 08437- 4848 Nov, [facility] [address] 82830- 5777 Nov, [facility] [address] 81588- 8258 Nov, OCD (obsessive compulsive disorder) F42 ; Anxiety F41.9 ; Insomnia G47.00 ; Anemia D64.9 and Asthma J45.909 [facility] [address] 01177- 3717 Nov, [facility] [id number] [place] [address] 17290- 8148 Oct, [facility] [id number] [place] [address] 35049- 7130 Aug, OCD (obsessive compulsive disorder) F42 ; Chronic cellulitis L03.90 ; Anxiety F41.9 ; Insomnia G47.00 ; Anemia D64.9 and Asthma J45.909 [facility] [address] 79886- 1113 Aug, [facility] [id number] [place] [address] 77345- 0180 Jul, [facility] [address] 62915- 3568 Jul, OCD (obsessive compulsive disorder) F42 ; Chronic cellulitis L03.90 ; Anxiety F41.9 ; Insomnia G47.00 and Anemia D64.9 [facility] [id number] [place] [address] 89043- 2583 [address], [address] [facility] [id number] [place] [address] 43998- 6505 Dec, [facility] [id number] [place] [address] 54477- 3152 Aug, [facility] [id number] [place] [address] 13039- 0773 Aug, [facility] [id number] [place] [address] 70741- 5480 Aug, [facility] [id number] [place] [address] 20987- 1229 Aug, [facility] [id number] [place] [address] 97523- 5031 Aug, [facility] [id number] [place] [address] 24059- 9146 Aug, [facility] [id number] [place] [address] 21436- 4498 Aug, [facility] [address] [address]- 9568 Jul, [facility] [address] [place] [address] 74555- 3215 Jul, [facility] [id number] [address]- 2853 Jul, [facility] [id number] [place] [address] 30902- 1664 Jul, [facility] [address] [address]- 5384 Apr, [facility] [id number] [place] [address]- 6916 Apr, [facility] [place] [facility] [address] [id number] [place] [address]- 5181 Feb, [facility] [place] [facility] [address] [id number] [place] [address]- 0431 Feb, [facility] [place] [facility] [address] [id number] [place] [address]- 4975 Feb, [facility] [place] [facility] [address] [id number] [place] [address]- 0425 Feb, [facility] [place] [facility] [address] [id number] [place] [address]- 6837 January, [facility] [place] [facility] [address] [id number] [place] [address]- 9739 January, [facility] [place] [facility] [address] [id number] [place] [address]- 6326 January, [facility] [place] [facility] [address] [id number] [place] [address]- 0263 Dec, [facility] [place] [facility] [address] [id number] [place] [address]- 9194 Dec, [facility] [place] [facility] [address] [id number] [place] [address]- 2307 Dec, [facility] [place] [facility] [address] [id number] [place] [address]- 6316 Dec, [facility] [place] [facility] [address] [id number] [place] [address]- 0684 Nov, [facility] [place] [facility] [address] [id number] [place] [address]- 4812 Nov, [facility] [place] [facility] [address] [id number] [place] [address]- 8540 Nov, [facility] [place] [facility] [address] [id number] [place] [address]- 0737 Nov, [facility] [place] [facility] [address] [id number] [place] [address]- 1900 Nov, [facility] [place] [facility] [address] [id number] [place] [address]- 3642 Nov, [facility] [place] [facility] [address] [id number] [place] [address]- 0414 Oct, [facility] [place] [facility] [address] [id number] [place] [address]- 1724 Oct, [facility] [place] [facility] [address] [id number] [place] [address]- 3175 Oct, [facility] [place] [facility] [address] [id number] [place] [address]- 7841 Oct, [facility] [place] [facility] [address] [id number] [place] [address]- 3515 Oct, [facility] [place] [facility] [address] [id number] [place] [address]- 1205 Oct, [facility] [place] [facility] [address] [id number] [place] [address]- 5294 Oct, [facility] [place] [facility] [address] [id number] [place] [address]- 6417 Oct, [facility] [place] [facility] [address] [id number] [place] [address]- 7247 Oct, [facility] [place] [facility] [address] [id number] [place] [address]- 4822 Oct, [facility] [place] [facility] [address] [id number] [place] [address]- 9754 Oct, [facility] [place] [facility] [address] [id number] [place] [address]- 5388 Oct, [facility] [place] [facility] [address] [id number] [place] [address]- 2745 Sep, [facility] [place] [facility] [id number] [address]- 8079 Sep, [facility] [id number] [address]- 0360 Sep, [facility] [address] [address]- 2445 Sep, [facility] [address] [address]- 0360 Aug, [facility] [address] [address]- 4053 Aug, [facility] [address] 6620 Aug, [facility] [address] [address]- 3335 Aug, [facility] [address] [address]- 6157 Aug, [facility] [id number] [address]- 9334 Aug, [facility] [id number] [address]- 3521 Aug, IMMUNIZATIONS No Known Immunizations SOCIAL HISTORY Never Assessed REASON FOR VISIT Medication refill request PLAN OF CARE VITAL SIGNS MEDICATIONS Unknown [...] History sepsis Hospitalization History Acute hypoxic resp distress--[facility] 07/28/16 Hospitalization History Denies any past psychiatric hospitalization
--- OUTSIDE RECORDS SUMMARY | 2018-10-07 10:28 | XMS REPORT ---
Author Author BRICE RAMIREZ Organization [facility] Address [address] [place] [address] Care Team Providers Care Sheriff Detective Name Role Phone BRICE RAMIREZ Unavailable PROBLEMS Type Condition ICD9-CM Code RSB39-LS Code Onset Dates Condition Status SNOMED Code Problem Other chronic pain G89.29 Active 01566801 Problem Reactive depression F32.9 Active 82779135 Problem Iron deficiency anemia, unspecified iron deficiency anemia type D50.9 Active 17027568 Problem Eating disorder, unspecified F50.9 Active 52153579 Problem Adjustment disorder with depressed mood F43.21 Active 79362138 Problem Seasonal allergic rhinitis due to pollen J30.1 Active 69515437 Problem Asthma exacerbation J45.901 Active 971730301 Problem Psychophysiological insomnia F51.04 Active 874376220 Problem Habitual self-excoriation F42.4 Active 953780510 Problem Chronic cellulitis L03.90 Active 427888485 Problem OCD (obsessive compulsive disorder) F42 Active 431236313 Problem Obesity (BMI 30.0-34.9) E66.9 Active 706717594641683 Problem Insomnia G47.00 Active 540180690 Problem Asthma J45.909 Active 324684830 Problem Anxiety F41.9 Active 76292756 Problem SVETLANA treated with BiPAP G47.33 Active 44096494 ALLERGIES Unknown Allergies SOCIAL HISTORY No smoking Hx information available PLAN OF CARE VITAL SIGNS MEDICATIONS Medication Instructions Dosage Frequency Start Date End Date Duration Status Celexa 10 mg Orally Once a day 1/2 tablet for the first week and then 1 full talbet 24h Aug, Active Ventolin HFA 90 MCG/ACT Inhalation every 4 hrs 2 puffs as needed 4h Active PredniSONE 50 mg Orally Once a day 1 tablet 24h Sep, 5 days Active RESULTS No Results PROCEDURES No Known procedures IMMUNIZATIONS No Known Immunizations
--- OUTSIDE RECORDS SUMMARY | 2018-10-07 10:29 | XMS REPORT ---
Author Author BRICE RAMIREZ [facility] Address [address] [place] [address] Care Team Providers Care Rn Advice Name Role Phone BRICE RAMIREZ Unavailable PROBLEMS Type Condition ICD9-CM Code MCE70-ML Code Onset Dates Condition Status SNOMED Code Problem Other chronic pain G89.29 Active 42615230 Problem Reactive depression F32.9 Active 53436092 Problem Iron deficiency anemia, unspecified iron deficiency anemia type D50.9 Active 38760904 Problem Eating disorder, unspecified F50.9 Active 25254207 Problem Adjustment disorder with depressed mood F43.21 Active 63927624 Problem Seasonal allergic rhinitis due to pollen J30.1 Active 11402350 Problem Asthma exacerbation J45.901 Active 399328475 Problem Psychophysiological insomnia F51.04 Active 577645289 Problem Habitual self-excoriation F42.4 Active 208712989 Problem Chronic cellulitis L03.90 Active 141802636 Problem OCD (obsessive compulsive disorder) F42 Active 070432564 Problem Obesity (BMI 30.0-34.9) E66.9 Active 653874834198644 Problem Insomnia G47.00 Active 209974177 Problem Asthma J45.909 Active 148613908 Problem Anxiety F41.9 Active 98142521 Problem SVETLANA treated with BiPAP G47.33 Active 40778410 ALLERGIES Substance Reaction Event Type Date Status Morphine Sulfate itching Drug Allergy Oct, Active SOCIAL HISTORY Never Assessed PLAN OF CARE Activity Details Follow Up 1 Week if breathing not improving with Linda Reason: VITAL SIGNS Height 65 in 2016-11-11 Weight 229.0 lbs 2016-11-11 Temperature 97.8 degrees Fahrenheit 2016-11-11 Heart Rate 88 bpm 2016-11-11 Respiratory Rate 20 2016-11-11 BMI 38.10 kg/m2 2016-11-11 Blood pressure systolic 122 mmHg 2016-11-11 Blood pressure diastolic 70 mmHg 2016-11-11 MEDICATIONS Medication Instructions Dosage Frequency Start Date End Date Duration Status Zolpidem Tartrate 10 mg TAKE 1 TABLET BY MOUTH EVERY NIGHT AT BEDTIME NEEDED Active Ativan 0.5 MG Orally 2 times a day 1 tablet as needed 12h Apr, Active Hydrocodone-Acetaminophen 5-325 MG Orally BID PRN pain 1 tablet as needed Sep, Active Celexa 10 mg Orally Once a day 1/2 tablet for the first week and then 1 full talbet 24h Aug, Active PredniSONE 50 mg Orally Once a day 1 tab 24h Oct, Oct, 07 days Active Symbicort 160-4.5 mcg/actuation Inhalation Twice a day 2 puffs 12h Oct, Active Milligan 5-325 MG Orally every 6 hrs 1 tablet for mild pain and 2 tabs for moderate to severe pain as needed 6h Oct, Nov, 14 days Active Ventolin HFA 90 MCG/ACT Inhalation every 4 hrs 2 puffs as needed 4h Active RESULTS No Results PROCEDURES Procedure Date Ordered Result Body Site REMOV SUTS; NOT WHO CLOS WND Nov 11, 2016 IMMUNIZATIONS No Known Immunizations MEDICAL (GENERAL) HISTORY Type Description Date Medical History asthma Medical History anxiety Medical History gastric bypass Medical History anemia Medical History sleep apnea treated with biPAP Surgical History gastric bypass 2002 Hospitalization History surgery Hospitalization History anemia Hospitalization History sepsis Hospitalization History Acute hypoxic resp distress--[facility] 07/28/16 Hospitalization History Denies any past psychiatric hospitalization
--- OUTSIDE RECORDS SUMMARY | 2018-10-07 10:29 | XMS REPORT ---
Author Author CARMINA SANDHU Organization [facility] Address [address] [place] [address] Care Team Providers Care Audiovisual Technician Name Role Phone CARMINA SANDHU Unavailable PROBLEMS Type Condition ICD9-CM Code [id number] Code Onset Dates Condition Status SNOMED Code Problem Other chronic pain G89.29 Active 95664571 Problem Reactive depression F32.9 Active 71355356 Problem Iron deficiency anemia, unspecified iron deficiency anemia type D50.9 Active 73717101 Problem Eating disorder, unspecified F50.9 Active 72488570 Problem Adjustment disorder with depressed mood F43.21 Active 65702298 Problem Seasonal allergic rhinitis due to pollen J30.1 Active 22684489 Problem Asthma exacerbation J45.901 Active 133174681 Problem Psychophysiological insomnia F51.04 Active 163902006 Problem Habitual self-excoriation F42.4 Active 589385669 Problem Chronic cellulitis L03.90 Active 071781567 Problem OCD (obsessive compulsive disorder) F42 Active 340559206 Problem Obesity (BMI 30.0-34.9) E66.9 Active 727136348422049 Problem Insomnia G47.00 Active 774623734 Problem Asthma J45.909 Active 241492854 Problem Anxiety F41.9 Active 76165642 Problem SVETLANA treated with BiPAP G47.33 Active 00211940 ALLERGIES Substance Reaction Event Type Date Status Morphine Sulfate itching Drug Allergy Oct, Active SOCIAL HISTORY Never Assessed PLAN OF CARE Activity Details Follow Up prn Reason: VITAL SIGNS Height 65 in 2016-11-01 Weight 232.6 lbs 2016-11-01 Temperature 98.3 degrees Fahrenheit 2016-11-01 Heart Rate 86 bpm 2016-11-01 Respiratory Rate 20 2016-11-01 Oximetry 96 % 2016-11-01 BMI 38.70 kg/m2 2016-11-01 Blood pressure systolic 98 mmHg 2016-11-01 Blood pressure diastolic 60 mmHg 2016-11-01 MEDICATIONS Medication Instructions Dosage Frequency Start Date End Date Duration Status Zolpidem Tartrate 10 mg TAKE 1 TABLET BY MOUTH EVERY NIGHT AT BEDTIME NEEDED Active Celexa 10 mg Orally Once a day 1/2 tablet for the first week and then 1 full talbet 24h 12 Aug, 2016 Active Hydrocodone-Acetaminophen 5-325 MG Orally BID PRN pain 1 tablet as needed Sep, Active PredniSONE 50 mg Orally Once a day 1 tablet 24h Sep, 5 days Active Ativan 0.5 MG Orally 2 times a day 1 tablet as needed 12h Apr, Active Azithromycin 250 MG Orally Once a day 2 tablets on the first day, then 1 tablet daily for 4 days 24h Oct, Oct, 5 day(s) Active Symbicort 160-4.5 mcg/actuation Inhalation Twice a day 2 puffs 12h 27 Oct, 2013 Active Ventolin HFA 90 MCG/ACT Inhalation every 4 hrs 2 puffs as needed 4h Active RESULTS No Results PROCEDURES Procedure Date Ordered Result Body Site MEASURE BLOOD OXYGEN LEVEL Nov 01, 2016 IMMUNIZATIONS No Known Immunizations MEDICAL (GENERAL) HISTORY Type Description Date Medical History asthma Medical History anxiety Medical History gastric bypass Medical History anemia Medical History sleep apnea treated with biPAP Surgical History gastric bypass 2002 Hospitalization History surgery Hospitalization History anemia Hospitalization History sepsis Hospitalization History Acute hypoxic resp distress--[facility] 07/28/16 Hospitalization History Denies any past psychiatric hospitalization
--- OUTSIDE RECORDS SUMMARY | 2018-10-07 10:29 | XMS REPORT ---
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 Name Role Phone BELIA, RAMONE Unavailable PROBLEMS Type Condition ICD9-CM Code XRH19-GW Code Onset Dates Condition Status SNOMED Code Problem Habitual self-excoriation F42.4 Active 595718726 Problem Adjustment disorder with depressed mood F43.21 Active 41503186 Problem Psychophysiological insomnia F51.04 Active 945582497 Problem BMI 45.0-49.9, adult Z68.42 Active 214220841 Problem Chronic cellulitis L03.90 Active 703647865 Problem Severe persistent asthma with acute exacerbation J45.51 Active 692126602 Problem OCD (obsessive compulsive disorder) F42 Active 509367678 Problem Other obesity due to excess calories E66.09 Active 35279421747958 Problem Eating disorder, unspecified F50.9 Active 38992757 Problem Moderate persistent asthma without complication J45.40 Active 057731273 Problem Body mass index (BMI) of 40.0-44.9 in adult Z68.41 Active 614539210 Problem Obesity (BMI 30.0-34.9) E66.9 Active 576541550039582 Problem Asthma J45.909 Active 024776311 Problem Insomnia G47.00 Active 100512725 Problem Anxiety F41.9 Active 52344633 Problem Iron deficiency anemia, unspecified iron deficiency anemia type D50.9 Active 91794487 Problem Other chronic pain G89.29 Active 87169860 Problem SVETLANA treated with BiPAP G47.33 Active 65640950 Problem Asthma exacerbation J45.901 Active 395367258 Problem Reactive depression F32.9 Active 05883232 Problem Seasonal allergic rhinitis due to pollen J30.1 Active 84510955 ALLERGIES Substance Reaction Event Type Date Status Morphine Sulfate itching Drug Allergy Apr, Active ENCOUNTERS Encounter Location Date Diagnosis [facility] [id number] [place] [address] 30796- 1110 Dec, [facility] [address] [address]- 3607 Dec, Anxiety F41.9 and Psychophysiological insomnia F51.04 [facility] [id number] [place] [address] 14535- 5509 Nov, Psychophysiological insomnia F51.04 [facility] [address] 10696- 6538 Oct, [facility] [address] 17406- 4303 Oct, Anxiety F41.9 [place] [id number] [place] [address] 34350- 8376 Oct, [place] [address] 03705- 1004 Oct, Severe persistent asthma with acute exacerbation J45.51 ; Tobacco abuse Z72.0 and BMI 45.0-49.9, adult Z68.42 [place] [address] [address]957- 1963 Oct, Psychophysiological insomnia F51.04 [place] [id number] [place] [address] 91926- 7977 Sep, Anxiety F41.9 [place] [id number] [place] [address] 19636- 0790 Sep, Anxiety F41.9 and Habitual self-excoriation F42.4 [place] [id number] [place] [address] 57242- 4777 Sep, Psychophysiological insomnia F51.04 [facility] [id number] [place] [address] 22814- 8795 Aug, Anxiety F41.9 [facility] [address] 35641- 1661 Aug, Asthma J45.909 [facility] [address] 14646- 1546 Aug, Anxiety F41.9 [facility] [address] 36899 -6726 Aug, Acute bronchitis, unspecified organism J20.9 [facility] [address] 41567- 4881 Aug, Psychophysiological insomnia F51.04 [facility] [address] 18393- 3110 Jul, Therapeutic drug monitoring Z51.81 [place] [address] 56660- 2913 Jul, [facility] [address] 04755- 5837 Jul, Habitual self-excoriation F42.4 [facility] [address] 72562- 6011 Jul, [place] [address] 50070- 6506 Jul, [place] [address] 84345- 5805 Jun, SVETLANA treated with BiPAP G47.33 ; Moderate persistent asthma without complication J45.40 ; Anxiety F41.9 ; Other obesity due to excess calories E66.09 ; Body mass index (BMI) of 40.0-44.9 in adult Z68.41 ; Psychophysiological insomnia F51.04 and Encounter for immunization Z23 [facility] [address] 08742- 3097 Jun, [place] [address] 77696- 8960 Jun, Habitual self-excoriation F42.4 ; Adjustment disorder with depressed mood F43.21 ; Psychophysiological insomnia F51.04 and Eating disorder , unspecified F50.9 [place] [address] [place] [address] 28722- 3538 Jun, Visit for TB skin test Z11.1 [place] [id number] [place] [address] 09898- 2645 Jun, Habitual self-excoriation F42.4 and Psychophysiological insomnia F51.04 [place] [id number] [place] [address] 98767- 5140 Jun, Asthma J45.909 [place] [id number] [place] [address] 33441- 7944 May, Asthma J45.909 [place] [id number] [place] [address] 31385- 3670 May, [place] [id number] [place] [address] 95839- 7884 May, Habitual self-excoriation F42.4 and Psychophysiological insomnia F51.04 [place] [id number] [place] [address] 61945- 0072 Apr, Habitual self-excoriation F42.4 ; Adjustment disorder with depressed mood F43.21 ; Psychophysiological insomnia F51.04 and Eating disorder , unspecified F50.9 [place] [address] [place] [address] 10418- 9189 Apr, [place] [address] [place] [address] 68190- 1792 Apr, Habitual self-excoriation F42.4 ; Adjustment disorder with depressed mood F43.21 ; Psychophysiological insomnia F51.04 and Other fci (current) drug therapy Z79.899 [place] [address] [place] [address] 43060- 7564 Mar, [place] [id number] [place] [address] 26993- 4278 Mar, [facility] [address] [place] [address] 64536- 9703 Mar, Anxiety F41.9 [facility] [id number] [place] [address] 64598- 6409 Feb, Asthma J45.909 [facility] [id number] [place] [address] 98332- 6946 Feb, [facility] [id number] [place] [address] 64926- 9635 Feb, Anxiety F41.9 [place] [address] 29678- 4822 Feb, Asthma exacerbation J45.901 and Seasonal allergic rhinitis due to pollen J30.1 [place] [id number] [place] [address] 01384- 2297 January, [place] [id number] [place] [address] 60134- 8612 January, Anxiety F41.9 [place] [id number] [place] [address] 18508- 6949 Dec, Therapeutic drug monitoring Z51.81 [place] [id number] [place] [address] 71190- 2821 Dec, Anxiety F41.9 and Asthma J45.909 [place] [id number] [place] [address] 16474- 1770 Nov, Asthma J45.909 [place] [id number] [place] [address] 57109- 3193 Nov, Anxiety F41.9 [place] [id number] [place] [address] 06293- 5721 Oct, Asthma exacerbation J45.901 ; Pain in right knee M25.561 ; Pain in left knee M25.562 and Open wound of eyebrow, left, subsequent encounter S01.102D [facility] [id number] [place] [address] 61442- 1657 16 Oct, 2016 [facility] [id number] [place] [address] 32386 -0308 11 Oct, 2016 Other viral agents as the cause of diseases classified elsewhere B97.89 and Acute upper respiratory infection, unspecified J06.9 [facility] [address] 55549- 7589 10 Oct, 2016 [place] [address] 13776- 4472 Oct, [place] [address] 33295- 7229 Oct, Anxiety F41.9 [place] [address] 89453- 1814 Sep, [place] [id number] [place] [address] 55119- 6015 Sep, SVETLANA treated with BiPAP G47.33 and Asthma J45.909 [place] [address] 84960- 5852 Sep, SVETLANA treated with BiPAP G47.33 ; Obesity (BMI 30.0-34.9) E66.9 and Reactive depression F32.9 [place] [id number] [place] [address] 56869- 0048 Sep, Anxiety F41.9 [place] [id number] [place] [address] 60105- 1448 Aug, [place] [address] 77047- 4864 Aug, Insomnia G47.00 [place] [id number] [place] [address] 11953- 5412 Aug, [place] [address] 51477- 5178 Aug, SVETLANA treated with BiPAP G47.33 and On supplemental oxygen therapy Z99.81 [facility] [address] 00390- 5719 Jul, On supplemental oxygen therapy Z99.81 ; Obesity (BMI 30.0- 34.9) E66.9 and SVETLANA treated with BiPAP G47.33 [facility] [id number] [place] [address] 43900- 2425 17 Jul, 2016 Mucus plugging of bronchi J98.09 ; On supplemental oxygen therapy Z99.81 ; Acute midline thoracic back pain M54.6 and SVETLANA treated with BiPAP G47.33 [facility] [id number] [place] [address] 10263- 4865 Jul, [facility] [id number] [place] [address] 99150- 6396 Jul, [facility] [id number] [place] [address] 29948- 9947 Jul, [facility] [id number] [place] [address] 80423- 8790 May, [facility] [address] 75885- 4183 May, [facility] [id number] [place] [address] 18725- 8787 Apr, [facility] [id number] [place] [address] 67889- 8190 Apr, [facility] [id number] [place] [address] 88625- 3729 Apr, Insomnia G47.00 ; Anemia D64.9 ; OCD (obsessive compulsive disorder) F42 ; Anxiety F41.9 ; Asthma J45.909 and Obesity (BMI 30.0-34.9) E66.9 [facility] [id number] [place] [address] 27789- 4666 Feb, [facility] [address] [address]- 6963 Feb, Insomnia G47.00 [facility] [id number] [place] [address] 18295- 7566 Nov, [facility] [id number] [place] [address] 35339- 6504 Nov, [facility] [id number] [place] [address] 90695- 3273 Nov, [facility] [id number] [place] [address] 77915- 0026 Nov, OCD (obsessive compulsive disorder) F42 ; Anxiety F41.9 ; Insomnia G47.00 ; Anemia D64.9 and Asthma J45.909 [place] [id number] [place] [address] 16509- 2985 Nov, [facility] [id number] [place] [address] 16773- 0551 Oct, [facility] [id number] [place] [address] 32432- 9447 Aug, OCD (obsessive compulsive disorder) F42 ; Chronic cellulitis L03.90 ; Anxiety F41.9 ; Insomnia G47.00 ; Anemia D64.9 and Asthma J45.909 [facility] [id number] [place] [address] 41012- 7562 Aug, [facility] [id number] [place] [address] 44667- 8437 Jul, [facility] [id number] [place] [address] 18112- 5425 Jul, OCD (obsessive compulsive disorder) F42 ; Chronic cellulitis L03.90 ; Anxiety F41.9 ; Insomnia G47.00 and Anemia D64.9 [facility] [id number] [place] [address] 45199- 6112 Dec, [facility] [place] [facility] [address] [id number] [place] [address]- 6154 Dec, [facility] [place] [facility] [address] [id number] [place] [address]- 5035 Aug, [facility] [place] [facility] [address] [id number] [place] [address]- 0477 Aug, [facility] [place] [facility] [address] [id number] [place] [address]- 5852 Aug, [facility] [place] [facility] [address] [id number] [place] [address]- 9080 Aug, [facility] [place] [facility] [address] [id number] [place] [address]- 7954 Aug, [facility] [place] [facility] [address] [id number] [place] [address]- 1516 Aug, [facility] [place] [facility] [address] [id number] [place] [address]- 2184 Aug, [facility] [place] [facility] [address] [id number] [place] [address]- 0274 Jul, [facility] [place] [facility] [address] [id number] [place] [address]- 0831 Jul, [facility] [place] [facility] [address] [id number] [place] [address]- 2385 Jul, [facility] [place] [facility] [address] [id number] [place] [address]- 1194 Jul, [facility] [place] [facility] [address] [id number] [place] [address]- 5326 Apr, [facility] [place] [facility] [address] [id number] [place] [address]- 9288 Apr, [facility] [place] [facility] [address] [id number] [place] [address]- 0227 Feb, [facility] [place] [facility] [address] [id number] [place] [address]- 6105 Feb, [facility] [place] [facility] [address] [id number] [place] [address]- 7783 Feb, [facility] [place] [facility] [address] [id number] [place] [address]- 7899 Feb, [facility] [place] [facility] [address] [id number] [place] [address]- 6412 January, [facility] [place] [facility] [address] [id number] [place] [address]- 8812 January, [facility] [place] [facility] [address] [id number] [place] [address]- 5615 January, [facility] [place] [facility] [address] [id number] [place] [address]- 4144 Dec, [facility] [place] [facility] [address] [id number] [place] [address]- 2477 Dec, [facility] [place] [facility] [address] [id number] [place] [address]- 9895 Dec, [facility] [place] [facility] [address] [id number] [place] [address]- 6776 Dec, [facility] [place] [facility] [address] [id number] [place] [address]- 6182 Nov, [facility] [place] [facility] [address] [id number] [place] [address]- 1455 Nov, [facility] [place] [facility] [address] [id number] [place] [address]- 1630 Nov, [facility] [place] [facility] [address] [id number] [place] [address]- 3790 Nov, [facility] [place] [facility] [address] [id number] [place] [address]- 7663 Nov, [facility] [place] [facility] [address] [id number] [place] [address]- 2620 Nov, [facility] [place] [facility] [address] [id number] [place] [address]- 6038 Oct, [facility] [place] [facility] [address] [id number] [place] [address]- 7576 Oct, [facility] [place] [facility] [address] [id number] [place] [address]- 1776 Oct, [facility] [place] [facility] [address] [id number] [place] [address]- 7909 Oct, [facility] [place] [facility] [address] [id number] [place] [address]- 5033 Oct, [facility] [place] [facility] [address] [id number] [place] [address]- 8737 Oct, [facility] [place] [facility] [address] [id number] [place] [address]- 6648 Oct, [facility] [place] [facility] [address] [id number] [place] [address]- 9474 Oct, [facility] [place] [facility] [address] [id number] [place] [address]- 1677 Oct, [facility] [place] [facility] [address] [id number] [place] [address]- 5316 Oct, [facility] [place] [facility] [address] [id number] [place] [address]- 4718 Oct, [facility] [place] [facility] [address] [id number] [place] [address]- 0298 Oct, [facility] [place] [facility] [address] [id number] [place] [address]- 2826 Sep, [facility] [place] [facility] [address] [id number] [place] [address]- 3971 Sep, [facility] [place] [facility] [address] [id number] [place] [address]- 0034 Sep, [facility] [place] [facility] [address] [facility] [id number] [address]- 4329 Sep, [facility] [id number] [address]- 0623 Aug, [facility] [id number] [address]- 1313 Aug, [facility] [address] [address]- 8754 Aug, [facility] [address] [address]- 7134 Aug, [facility] [address] [address]- 0061 Aug, [facility] [address] [address]- 7323 Aug, [facility] [address] [address]- 5714 Aug, IMMUNIZATIONS No Known Immunizations SOCIAL HISTORY Never Assessed REASON FOR VISIT intake Tomas PLAN OF CARE Activity Details Follow Up 4 Weeks Reason: f/u VITAL SIGNS Height 65 in 2017-04-24 Weight 210 lbs 2017-04-24 Heart Rate 68 bpm 2017-04-24 Respiratory Rate 18 2017-04-24 BMI 34.94 kg/m2 2017-04-24 Blood pressure systolic 108 mmHg 2017-04-24 Blood pressure diastolic 56 mmHg 2017-04-24 MEDICATIONS Medication Instructions Dosage Frequency Start Date End Date Duration Status Zolpidem Tartrate 10 mg Orally at bedtime as needed 1 tablet 30 days Active Hydrocodone-Acetaminophen 5-325 MG Orally BID PRN pain 1 tablet as needed Sep, Active Ativan 1 MG Orally twice a day as needed 1 tablet Apr, 30 days Active Celexa 20 mg Orally twice a day 0.5 tablet 12h Apr, 30 day(s) Active Ventolin HFA 90 MCG/ACT Inhalation every [...] History sepsis Hospitalization History Acute hypoxic resp distress--[facility] 07/28/16 Hospitalization History Denies any past psychiatric hospitalization
--- OUTSIDE RECORDS SUMMARY | 2018-10-07 10:29 | XMS REPORT ---
Author Author BRICE RAMIREZ [facility] Address [address] [place] [address] Care Team Providers Care Natural Sciences Manager Name Role Phone BRICE RAMIREZ Unavailable PROBLEMS Type Condition ICD9-CM Code SLR27-JJ Code Onset Dates Condition Status SNOMED Code Problem Anemia D64.9 Active 213352031 Problem Anxiety F41.9 Active 47234712 Problem Insomnia G47.00 Active 675158007 Problem SVETLANA treated with BiPAP G47.33 Active 05037784 Problem On supplemental oxygen therapy Z99.81 Active 905272922333 Problem OCD (obsessive compulsive disorder) F42 Active 181260385 Problem Chronic cellulitis L03.90 Active 032035342 Problem Asthma J45.909 Active 804882603 Problem Obesity (BMI 30.0-34.9) E66.9 Active [id number] ALLERGIES Unknown Allergies SOCIAL HISTORY No smoking Hx information available PLAN OF CARE VITAL SIGNS MEDICATIONS Unknown Medications RESULTS No Results PROCEDURES No Known procedures IMMUNIZATIONS No Known Immunizations
--- OUTSIDE RECORDS SUMMARY | 2018-10-07 10:29 | XMS REPORT ---
Author Author BRICE RAMIREZ Organization [facility] Address [address] [place] [address] Care Team Providers Care Insole Buffer Name Role Phone BRICE RAMIREZ Unavailable PROBLEMS Type Condition ICD9-CM Code WHU27-AK Code Onset Dates Condition Status SNOMED Code Problem Psychophysiological insomnia F51.04 Active 479049014 Problem Eating disorder, unspecified F50.9 Active 55069734 Problem Adjustment disorder with depressed mood F43.21 Active 57205319 Problem COPD exacerbation J44.1 Active 126059736 Problem Insomnia G47.00 Active 806951835 Problem BMI 45.0-49.9, adult Z68.42 Active 689294841 Problem OCD (obsessive compulsive disorder) F42 Active 982393694 Problem Chronic cellulitis L03.90 Active 022022347 Problem Moderate persistent asthma without complication J45.40 Active 799513012 Problem Body mass index (BMI) of 40.0-44.9 in adult Z68.41 Active 918002217 Problem Severe persistent asthma with acute exacerbation J45.51 Active 596557304 Problem Other obesity due to excess calories E66.09 Active 71631182978495 Problem Obesity (BMI 30.0-34.9) E66.9 Active 105782839815471 Problem SVETLANA treated with BiPAP G47.33 Active 39470327 Problem Anxiety F41.9 Active 64752769 Problem Asthma J45.909 Active 870258102 Problem Iron deficiency anemia, unspecified iron deficiency anemia type D50.9 Active 55053212 Problem Asthma exacerbation J45.901 Active 093628002 Problem Reactive depression F32.9 Active 46188665 Problem Seasonal allergic rhinitis due to pollen J30.1 Active 20515369 Problem Other chronic pain G89.29 Active 27138861 Problem Habitual self-excoriation F42.4 Active 639106883 ALLERGIES No Information ENCOUNTERS Encounter Location Date Diagnosis [facility] [id number] [place] [address] 94655- 6849 Mar, [place] [address] 42489- 1455 Mar, Habitual self-excoriation F42.4 ; Anxiety F41.9 and Psychophysiological insomnia F51.04 [place] [address] 34432- 4096 Feb, [place] [address] 82914- 6461 Feb, Anxiety F41.9 and Psychophysiological insomnia F51.04 [place] [address] 30130- 3845 January, Acute pain of left knee M25.562 and BMI 50.0-59.9, adult Z68.43 [place] [address] 65975- 0754 January, [place] [address] 38698- 0486 January, COPD exacerbation J44.1 and Severe persistent asthma with acute exacerbation J45.51 [place] [address] 05914- 3863 January, Anxiety F41.9 and Psychophysiological insomnia F51.04 [place] [id number] [place] [address] 16847- 0931 January, COPD exacerbation J44.1 and Left medial knee pain M25.562 [place] [id number] [place] [address] 07066- 1060 Dec, COPD with exacerbation J44.1 ; BMI 45.0-49.9, adult Z68.42 ; SVETLANA treated with BiPAP G47.33 and Psychophysiological insomnia F51.04 [place] [id number] [place] [address] 07827- 2528 Dec, [place] [address] 03023- 4426 Dec, Acute pain of left knee M25.562 ; Unspecified fall, initial encounter W19.XXXA ; Unspecified place in unspecified non-institutional (private ) residence as the place of occurrence of the external cause Y92.009 ; BMI 45.0- 49.9, adult Z68.42 and Severe persistent asthma with acute exacerbation J45.51 [place] [address] 52965- 5640 Dec, Anxiety F41.9 and Psychophysiological insomnia F51.04 [place] [address] 71648- 6916 Nov, Psychophysiological insomnia F51.04 [place] [address] 08149- 3607 Oct, [place] [address] 55949- 3038 Oct, Anxiety F41.9 [place] [address] 50319- 7245 Oct, [place] [address] 56123- 4067 Oct, Severe persistent asthma with acute exacerbation J45.51 ; Tobacco abuse Z72.0 and BMI 45.0-49.9, adult Z68.42 [place] [address] 98702- 5018 Oct, Psychophysiological insomnia F51.04 [place] [address] 80447- 4395 Sep, Anxiety F41.9 [place] [address] 01377- 6891 Sep, Anxiety F41.9 and Habitual self-excoriation F42.[address] 02578- 3976 Sep, Psychophysiological insomnia F51.04 [facility] [address] 90720- 5344 Aug, Anxiety F41.9 [facility] [address] 29004- 0027 Aug, Asthma J45.909 [facility] [address] 09772- 5106 Aug, Anxiety F41.[address] [facility] [address] 34920 -7513 Aug, Acute bronchitis, unspecified organism J20.9 [facility] [address] 39004- 7466 Aug, Psychophysiological insomnia F51.04 [place] [address] 19646- 0716 Jul, Therapeutic drug monitoring Z51.81 [place] [address] 35358- 6335 Jul, [place] [address] 48844- 3265 Jul, Habitual self-excoriation F42.4 [place] [address] 95805- 5092 08 Jul, 2017 [place] [address] 04220- 5552 Jul, [place] [address] 36810- 2561 Jun, SVETLANA treated with BiPAP G47.33 ; Moderate persistent asthma without complication J45.40 ; Anxiety F41.9 ; Other obesity due to excess calories E66.09 ; Body mass index (BMI) of 40.0-44.9 in adult Z68.41 ; Psychophysiological insomnia F51.04 and Encounter for immunization Z23 [facility] [address] 49376- 6384 Jun, [place] [id number] [place] [address] 26583- 9762 Jun, Habitual self-excoriation F42.4 ; Adjustment disorder with depressed mood F43.21 ; Psychophysiological insomnia F51.04 and Eating disorder , unspecified F50.9 [place] [id number] [place] [address] 94518- 7218 Jun, Visit for TB skin test Z11.1 [place] [id number] [place] [address] 76800- 4340 Jun, Habitual self-excoriation F42.4 and Psychophysiological insomnia F51.04 [place] [id number] [place] [address] 85959- 9970 Jun, Asthma J45.909 [place] [id number] [place] [address] 19070- 6225 May, Asthma J45.909 [place] [id number] [place] [address] 22445- 4880 May, [place] [id number] [place] [address] 71208- 4162 May, Habitual self-excoriation F42.4 and Psychophysiological insomnia F51.04 [place] [id number] [place] [address] 74242- 6651 Apr, Habitual self-excoriation F42.4 ; Adjustment disorder with depressed mood F43.21 ; Psychophysiological insomnia F51.04 and Eating disorder , unspecified F50.9 [place] [id number] [place] [address] 97868- 4186 Apr, [place] [id number] [place] [address] 05698- 8001 Apr, Habitual self-excoriation F42.4 ; Adjustment disorder with depressed mood F43.21 ; Psychophysiological insomnia F51.04 and [facility] Z79.899 [facility] [id number] [place] [address] 88601- 3415 Mar, [facility] [id number] [place] [address] 18830- 3486 Mar, [facility] [id number] [place] [address] 06746- 4770 Mar, Anxiety F41.9 [facility] [id number] [place] [address] 72571- 6861 Feb, Asthma J45.909 [facility] [address] 06166- 2017 Feb, [facility] [id number] [place] [address] 08350- 8382 Feb, Anxiety F41.9 [facility] [id number] [place] [address] 57995- 2806 Feb, Asthma exacerbation J45.901 and Seasonal allergic rhinitis due to pollen J30.1 [facility] [id number] [place] [address] 30592- 1940 January, [facility] [id number] [place] [address] 01194- 5166 January, Anxiety F41.9 [facility] [id number] [place] [address] 86960- 9093 Dec, Therapeutic drug monitoring Z51.81 [facility] [id number] [place] [address] 41873- 3140 Dec, Anxiety F41.9 and Asthma J45.909 [facility] [id number] [place] [address] 55640- 2016 Nov, Asthma J45.909 [facility] [id number] [place] [address] 71319- 5649 Nov, Anxiety F41.9 [facility] [id number] [place] [address] 36302- 9109 Oct, Asthma exacerbation J45.901 ; Pain in right knee M25.561 ; Pain in left knee M25.562 and Open wound of eyebrow, left, subsequent encounter S01.102D [facility] [address] 22978- 7540 16 Oct, 2016 [facility] [address] 14027 -8181 Oct, Other viral agents as the cause of diseases classified elsewhere B97.89 and Acute upper respiratory infection, unspecified J06.9 [place] [address] 50392- 7314 Oct, [place] [address] 63874- 5946 Oct, [place] [address] 57384- 7758 Oct, Anxiety F41.9 [place] [address] 46086- 8245 Sep, [place] [address] 50006- 3424 Sep, SVETLANA treated with BiPAP G47.33 and Asthma J45.909 [place] [address] 85876- 4431 Sep, SVETLANA treated with BiPAP G47.33 ; Obesity (BMI 30.0-34.9) E66.9 and Reactive depression F32.[address] 05944- 5389 Sep, Anxiety F41.9 [place] [address] 55356- 9895 Aug, [place] [address] 75682- 0365 Aug, Insomnia G47.00 [facility] [id number] [place] [address] 74357- 3073 Aug, [facility] [id number] [place] [address] 477281- 2728 Aug, SVETLANA treated with BiPAP G47.33 and On supplemental oxygen therapy Z99.81 [facility] [address] 18324- 0223 Jul, On supplemental oxygen therapy Z99.81 ; Obesity (BMI 30.0- 34.9) E66.9 and SVETLANA treated with BiPAP G47.33 [facility] [id number] [place] [address] 60741- 9789 17 Jul, 2016 Mucus plugging of bronchi J98.09 ; On supplemental oxygen therapy Z99.81 ; Acute midline thoracic back pain M54.6 and SVETLANA treated with BiPAP G47.33 [facility] [id number] [place] [address] 01048- 6017 16 Jul, 2016 [facility] [id number] [place] [address] 98163- 9489 Jul, [facility] [id number] [place] [address] 15907- 3569 Jul, [facility] [id number] [place] [address] 64204- 9092 May, [facility] [id number] [place] [address] 09524- 1949 May, [facility] [id number] [place] [address] 97357- 9072 Apr, [facility] [id number] [place] [address] [id number]- 7783 Apr, [facility] [id number] [place] [address] 19630- 5473 Apr, Insomnia G47.00 ; Anemia D64.9 ; OCD (obsessive compulsive disorder) F42 ; Anxiety F41.9 ; Asthma J45.909 and Obesity (BMI 30.0-34.9) E66.9 [facility] [id number] [place] [address] 86401- 6532 Feb, [facility] [address] 89282- 4544 Feb, Insomnia G47.00 [facility] [address] 15953- 3383 Nov, [facility] [address] 02524- 1632 Nov, [facility] [address] 74660- 9227 Nov, [facility] [address] 83392- 2959 Nov, OCD (obsessive compulsive disorder) F42 ; Anxiety F41.9 ; Insomnia G47.00 ; Anemia D64.9 and Asthma J45.909 [facility] [address] 17992- 7001 Nov, [facility] [id number] [place] [address] 09768- 5059 Oct, [facility] [id number] [place] [address] 93181- 8521 Aug, OCD (obsessive compulsive disorder) F42 ; Chronic cellulitis L03.90 ; Anxiety F41.9 ; Insomnia G47.00 ; Anemia D64.9 and Asthma J45.909 [facility] [address] 87128- 4549 Aug, [facility] [id number] [place] [address] 32495- 2984 Jul, [facility] [address] 19951- 5110 Jul, OCD (obsessive compulsive disorder) F42 ; Chronic cellulitis L03.90 ; Anxiety F41.9 ; Insomnia G47.00 and Anemia D64.9 [facility] [id number] [place] [address] 57654- 6089 14 Dec, 2014 [facility] [id number] [place] [address] 14935- 7647 Dec, [facility] [id number] [place] [address] 73367- 3547 Aug, [facility] [id number] [place] [address] 46861- 4028 Aug, [facility] [id number] [place] [address] 20650- 5036 Aug, [facility] [id number] [place] [address] 30569- 5981 Aug, [facility] [id number] [place] [address] 25302- 7939 Aug, [facility] [id number] [place] [address] 49295- 2714 Aug, [facility] [id number] [place] [address] 77438- 2593 Aug, [facility] [address] [address]- 2824 Jul, [facility] [address] [place] [address] 71003- 9455 Jul, [facility] [id number] [address]- 8304 Jul, [facility] [id number] [place] [address] 82315- 8292 Jul, [facility] [address] [place] [address]- 8206 Apr, [facility] [id number] [place] [address]- 2476 Apr, [facility] [place] [facility] [address] [id number] [place] [address]- 5984 Feb, [facility] [place] [facility] [address] [id number] [place] [address]- 5536 Feb, [facility] [place] [facility] [address] [id number] [place] [address]- 5980 Feb, [facility] [place] [facility] [address] [id number] [place] [address]- 9046 Feb, [facility] [place] [facility] [address] [id number] [place] [address]- 5630 January, [facility] [place] [facility] [address] [id number] [place] [address]- 0209 January, [facility] [place] [facility] [address] [id number] [place] [address]- 1050 January, [facility] [place] [facility] [address] [id number] [place] [address]- 3458 Dec, [facility] [place] [facility] [address] [id number] [place] [address]- 9611 Dec, [facility] [place] [facility] [address] [id number] [place] [address]- 0105 Dec, [facility] [place] [facility] [address] [id number] [place] [address]- 1142 Dec, [facility] [place] [facility] [address] [id number] [place] [address]- 1335 Nov, [facility] [place] [facility] [address] [id number] [place] [address]- 2774 Nov, [facility] [place] [facility] [address] [id number] [place] [address]- 6277 Nov, [facility] [place] [facility] [address] [id number] [place] [address]- 9571 Nov, [facility] [place] [facility] [address] [id number] [place] [address]- 4996 Nov, [facility] [place] [facility] [address] [id number] [place] [address]- 1809 Nov, [facility] [place] [facility] [address] [id number] [place] [address]- 3874 Oct, [facility] [place] [facility] [address] [id number] [place] [address]- 7639 Oct, [facility] [place] [facility] [address] [id number] [place] [address]- 3674 Oct, [facility] [place] [facility] [address] [id number] [place] [address]- 0284 Oct, [facility] [place] [facility] [address] [id number] [place] [address]- 4196 Oct, [facility] [place] [facility] [address] [id number] [place] [address]- 9558 Oct, [facility] [place] [facility] [address] [id number] [place] [address]- 4425 Oct, [facility] [place] [facility] [address] [id number] [place] [address]- 4075 Oct, [facility] [place] [facility] [address] [id number] [place] [address]- 5114 Oct, [facility] [place] [facility] [address] [id number] [place] [address]- 6941 Oct, [facility] [place] [facility] [address] [id number] [place] [address]- 2792 Oct, [facility] [place] [facility] [address] [id number] [place] [address]- 9476 Oct, [facility] [place] [facility] [address] [id number] [place] [address]- 3641 Sep, [facility] [place] [facility] [id number] [address]- 8732 Sep, [facility] [id number] [address]- 1578 Sep, [facility] [address] [address]- 8982 Sep, [facility] [id number] [address]- 7965 Aug, [facility] [address] [address]- 3208 Aug, [facility] [address]- 5987 Aug, [facility] [address] [place] [address]- 5589 Aug, [facility] [address] [place] [address]- 2780 Aug, [facility] [id number] [address]- 1527 Aug, [facility] [id number] [address]- 2224 Aug, IMMUNIZATIONS No Known Immunizations SOCIAL HISTORY [...] History sepsis Hospitalization History Acute hypoxic resp distress--[facility] 07/28/16 Hospitalization History Denies any past psychiatric hospitalization
--- OUTSIDE RECORDS SUMMARY | 2018-10-07 10:30 | XMS REPORT ---
Author Author BRICE RAMIREZ Organization [facility] Address [address] [place] [address] Care Team Providers Care Spare Parts Clerk Name Role Phone BRICE RAMIREZ Unavailable PROBLEMS Type Condition ICD9-CM Code AXB36-FE Code Onset Dates Condition Status SNOMED Code Problem SVETLANA treated with BiPAP G47.33 Active 45731794 Problem Reactive depression F32.9 Active 31204548 Problem Iron deficiency anemia, unspecified iron deficiency anemia type D50.9 Active 96097697 Problem Adjustment disorder with depressed mood F43.21 Active 59618356 Problem Psychophysiological insomnia F51.04 Active 708392642 Problem Asthma exacerbation J45.901 Active 975385136 Problem Other chronic pain G89.29 Active 69232856 Problem Habitual self-excoriation F42.4 Active 325162061 Problem Seasonal allergic rhinitis due to pollen J30.1 Active 04248929 Problem Anxiety F41.9 Active 46874808 Problem OCD (obsessive compulsive disorder) F42 Active 285995468 Problem Chronic cellulitis L03.90 Active 674498738 Problem Obesity (BMI 30.0-34.9) E66.9 Active 799892895548942 Problem Insomnia G47.00 Active 458249703 Problem Asthma J45.909 Active 389721884 ALLERGIES Unknown Allergies SOCIAL HISTORY No smoking Hx information available PLAN OF CARE VITAL SIGNS MEDICATIONS Medication Instructions Dosage Frequency Start Date End Date Duration Status Zolpidem Tartrate 10 mg TAKE 1 TABLET BY MOUTH EVERY NIGHT AT BEDTIME NEEDED Active Ativan 0.5 MG Orally 2 times a day 1 tablet as needed 12h Apr, Active RESULTS No Results PROCEDURES No Known procedures IMMUNIZATIONS No Known Immunizations
--- OUTSIDE RECORDS SUMMARY | 2018-10-07 10:30 | XMS REPORT ---
Author Author BRICE RAMIREZ Organization [facility] Address [address] [place] [address] Care Team Providers Care Physicist Astrophysics Name Role Phone BRICE RAMIREZ Unavailable PROBLEMS Type Condition ICD9-CM Code XZX82-ZG Code Onset Dates Condition Status SNOMED Code Problem Anemia D64.9 Active 283986663 Problem Anxiety F41.9 Active 15865431 Problem Insomnia G47.00 Active 031826900 Assessment On supplemental oxygen therapy Z99.81 Jul, Active 707167079944 Problem SVETLANA treated with BiPAP G47.33 Active 08238659 Problem On supplemental oxygen therapy Z99.81 Active 855636365019 Problem OCD (obsessive compulsive disorder) F42 Active 358675627 Problem Chronic cellulitis L03.90 Active 720019614 Problem Asthma J45.909 Active 981602259 Problem Obesity (BMI 30.0-34.9) E66.9 Active 450715284324302 ALLERGIES Substance Reaction Event Type Date Status Morphine Sulfate itching Drug Allergy Jul, Active SOCIAL HISTORY No smoking Hx information available PLAN OF CARE VITAL SIGNS Height 65 in 2016-08-12 Weight 243 lbs 2016-08-12 Heart Rate 74 bpm 2016-08-12 Respiratory Rate 20 2016-08-12 BMI 40.43 kg/m2 2016-08-12 Blood pressure systolic 110 mmHg 2016-08-12 Blood pressure diastolic 70 mmHg 2016-08-12 MEDICATIONS Medication Instructions Dosage Frequency Start Date End Date Duration Status Ambien 10 MG Orally Once a day 1 tablet at bedtime as needed 24h Jul, 30 Active Ventolin HFA 90 MCG/ACT Inhalation every 4 hrs 2 puffs as needed 4h Active Symbicort 160-4.5 mcg/actuation Inhalation Twice a day 2 puffs 12h 27 Oct, 2013 Active Ativan 0.5 MG Orally 2 times a day 1 tablet as needed 12h Apr, Active PredniSONE 10 mg Orally Once a day 5 tabs on the first day and decrease by 1 tab every other day 24h Jul, Active Lortab 5-325 MG Orally every 6 hrs 1 tablet as needed 6h Jul, Aug, 1 month Active RESULTS No Results PROCEDURES Procedure Date Ordered Related Diagnosis Body Site Office Visit, Est Pt., Level 3 Aug 12, 2016 IMMUNIZATIONS No Known Immunizations
--- OUTSIDE RECORDS SUMMARY | 2018-10-07 10:30 | XMS REPORT ---
Author Author TEVIN MONTANO Organization [employer] Address Unknown Phone Unavailable Care Team Providers Care Civil Engineering Technician Name Role Phone TEVIN MONTANO CP Unavailable Allergies No Known Allergies Problems Problem Type Condition Code Onset Dates Condition Status Problem Anemia D64.9 Active Problem Asthma J45.909 Active Problem Obesity (BMI 30.0-34.9) E66.9 Active Problem On supplemental oxygen therapy Z99.81 Active Problem Anxiety F41.9 Active Problem Insomnia G47.00 Active Problem OCD (obsessive compulsive disorder) F42 Active Problem Chronic cellulitis L03.90 Active Medications Medication Code System Code Instructions Start Date End Date Status Dosage Ambien [facility] [address]-27 10 MG Orally Once a day Aug 09, 2015 1 tablet at bedtime as needed Clonidine HCl [facility] [address]-51 0.1 MG Orally once daily at bedtime 1 tablet Symbicort [facility] [address]-40 160-4.5 mcg/actuation Inhalation Twice a day Nov 17, 2013 2 puffs PredniSONE [facility] [address]-27 10 mg Orally Once a day Aug 06, 2016 5 tabs on the first day and decrease by 1 tab every other day Ativan [facility] [address]-64 0.5 MG Orally 2 times a day May 12, 2016 1 tablet as needed Fluvoxamine Maleate [facility] 32407625016 100 MG Orally Once a day 1 tablet at bedtime Ventolin HFA [facility] [id number] 90 MCG/ACT Inhalation every 4 hrs 2 puffs as needed Results No Known Results Summary Purpose [employer] Submission
--- OUTSIDE RECORDS SUMMARY | 2018-10-07 10:30 | XMS REPORT ---
Author Author BRICE RAMIREZ Organization [facility] Address [address] [place] [address] Care Team Providers Care Federal Mediation Commissioner Name Role Phone BRICE RAMIREZ Unavailable PROBLEMS Type Condition ICD9-CM Code IFC92-XE Code Onset Dates Condition Status SNOMED Code Problem Psychophysiological insomnia F51.04 Active 232923844 Problem Eating disorder, unspecified F50.9 Active 05430323 Problem Adjustment disorder with depressed mood F43.21 Active 78860426 Problem COPD exacerbation J44.1 Active 995731961 Problem Insomnia G47.00 Active 103024326 Problem BMI 45.0-49.9, adult Z68.42 Active 832759648 Problem OCD (obsessive compulsive disorder) F42 Active 216140293 Problem Chronic cellulitis L03.90 Active 745981487 Problem Moderate persistent asthma without complication J45.40 Active 692972056 Problem Body mass index (BMI) of 40.0-44.9 in adult Z68.41 Active 621977125 Problem Severe persistent asthma with acute exacerbation J45.51 Active 960033847 Problem Other obesity due to excess calories E66.09 Active 84048497949959 Problem Obesity (BMI 30.0-34.9) E66.9 Active 312596108042864 Problem SVETLANA treated with BiPAP G47.33 Active 05632653 Problem Anxiety F41.9 Active 93796294 Problem Asthma J45.909 Active 135012827 Problem Iron deficiency anemia, unspecified iron deficiency anemia type D50.9 Active 67191386 Problem Asthma exacerbation J45.901 Active 863473145 Problem Reactive depression F32.9 Active 37360224 Problem Seasonal allergic rhinitis due to pollen J30.1 Active 98716986 Problem Other chronic pain G89.29 Active 00218557 Problem Habitual self-excoriation F42.4 Active 435121356 ALLERGIES No Information ENCOUNTERS Encounter Location Date Diagnosis [facility] [id number] [place] [address] 99452- 4253 January, Acute pain of left knee M25.562 and BMI 50.0-59.9, adult Z68.43 [facility] [id number] [place] [address] 91157- 7922 January, [facility] [id number] [place] [address] 15742- 2841 January, COPD exacerbation J44.1 and Severe persistent asthma with acute exacerbation J45.51 [facility] [id number] [place] [address] 71443- 8680 January, Anxiety F41.9 and Psychophysiological insomnia F51.04 [place] [address] 44557- 7402 January, COPD exacerbation J44.1 and Left medial knee pain M25.562 [place] [address] 80816- 9993 Dec, COPD with exacerbation J44.1 ; BMI 45.0-49.9, adult Z68.42 ; SVETLANA treated with BiPAP G47.33 and Psychophysiological insomnia F51.04 [facility] [id number] [place] [address] 51286- 9505 Dec, [facility] [id number] [place] [address] 60056- 8049 Dec, Acute pain of left knee M25.562 ; Unspecified fall, initial encounter W19.XXXA ; Unspecified place in unspecified non-institutional (private ) residence as the place of occurrence of the external cause Y92.009 ; BMI 45.0- 49.9, adult Z68.42 and Severe persistent asthma with acute exacerbation J45.51 [facility] [facility] [id number] [place] [address] 03817- 5325 Dec, Anxiety F41.9 and Psychophysiological insomnia F51.04 [facility] [id number] [place] [address] 36442- 1401 Nov, Psychophysiological insomnia F51.04 [facility] [id number] [place] [address] 09945- 8669 Oct, [facility] [id number] [place] [address] 55563- 1722 Oct, Anxiety F41.9 [facility] [id number] [place] [address] 77189- 4464 Oct, [facility] [id number] [place] [address] 96646- 3592 Oct, Severe persistent asthma with acute exacerbation J45.51 ; Tobacco abuse Z72.0 and BMI 45.0-49.9, adult Z68.42 [facility] [id number] [place] [address] 18976- 8970 Oct, Psychophysiological insomnia F51.04 [place] [address] 13055- 6851 Sep, Anxiety F41.9 [facility] [id number] [place] [address] 46857- 2813 Sep, Anxiety F41.9 and Habitual self-excoriation F42.4 [facility] [facility] [id number] [place] [address] 49732- 8439 Sep, Psychophysiological insomnia F51.04 [facility] [facility] [id number] [place] [address] 40295- 7555 Aug, Anxiety F41.9 [facility] [id number] [place] [address] 73632- 6628 Aug, Asthma J45.909 [facility] [id number] [place] [address] 03708- 7660 Aug, Anxiety F41.9 [facility] [id number] [place] [address] 74666 -2410 Aug, Acute bronchitis, unspecified organism J20.9 [facility] [id number] [place] [address] 90062- 9219 Aug, Psychophysiological insomnia F51.04 [place] [address] 20851- 6032 Jul, Therapeutic drug monitoring Z51.81 [place] [address] 10669- 3221 Jul, [place] [address] 74268- 0074 Jul, Habitual self-excoriation F42.4 [place] [address] 86543- 3404 08 Jul, 2017 [place] [address] 10384- 2559 Jul, [place] [address] 39864- 2051 Jun, SVETLANA treated with BiPAP G47.33 ; Moderate persistent asthma without complication J45.40 ; Anxiety F41.9 ; Other obesity due to excess calories E66.09 ; Body mass index (BMI) of 40.0-44.9 in adult Z68.41 ; Psychophysiological insomnia F51.04 and Encounter for immunization Z23 [facility] [facility] [id number] [place] [address] 92684- 3182 Jun, [place] [facility] [id number] [place] [address] 89622- 2400 Jun, Habitual self-excoriation F42.4 ; Adjustment disorder with depressed mood F43.21 ; Psychophysiological insomnia F51.04 and Eating disorder , unspecified F50.9 [facility] [id number] [place] [address] 57407- 8385 Jun, Visit for TB skin test Z11.1 [facility] [facility] [id number] [place] [address] 81194- 1964 Jun, Habitual self-excoriation F42.4 and Psychophysiological insomnia F51.04 [facility] [id number] [place] [address] 05434- 6287 Jun, Asthma J45.909 [facility] [id number] [place] [address] 06483- 6360 May, Asthma J45.909 [facility] [id number] [place] [address] 31197- 2343 May, [facility] [id number] [place] [address] 11433- 6859 May, Habitual self-excoriation F42.4 and Psychophysiological insomnia F51.04 [facility] [id number] [place] [address] 41419- 6353 Apr, Habitual self-excoriation F42.4 ; Adjustment disorder with depressed mood F43.21 ; Psychophysiological insomnia F51.04 and Eating disorder , unspecified F50.9 [facility] [id number] [place] [address] 49814- 3735 Apr, [facility] [id number] [place] [address] 98761- 7141 Apr, Habitual self-excoriation F42.4 ; Adjustment disorder with depressed mood F43.21 ; Psychophysiological insomnia F51.04 and Other mcfp (current) drug therapy Z79.899 [place] [id number] [place] [address] 16058- 4858 Mar, [facility] [id number] [place] [address] 75375- 8711 Mar, [place] [id number] [place] [address] 57283- 6993 Mar, Anxiety F41.9 [facility] [id number] [place] [address] 56125- 5049 Feb, Asthma J45.909 [facility] [address] [address] 75872- 3986 Feb, [place] [address] 86426- 5512 Feb, Anxiety F41.9 [place] [address] 48073- 7116 Feb, Asthma exacerbation J45.901 and Seasonal allergic rhinitis due to pollen J30.1 [place] [address] 84642- 8585 January, [place] [address] 79478- 9499 January, Anxiety F41.9 [place] [address] 43882- 3240 Dec, Therapeutic drug monitoring Z51.[address] 25761- 7744 Dec, Anxiety F41.9 and Asthma J45.909 [place] [address] 32061- 6312 Nov, Asthma J45.909 [place] [address] 67140- 0276 Nov, Anxiety F41.9 [facility] [facility] [id number] [place] [address] 66098- 5392 Oct, Asthma exacerbation J45.901 ; Pain in right knee M25.561 ; Pain in left knee M25.562 and Open wound of eyebrow, left, subsequent encounter S01.102D [place] [address] 66106- 8213 16 Oct, 2016 [facility] [id number] [place] [address] 20908 -1241 Oct, Other viral agents as the cause of diseases classified elsewhere B97.89 and Acute upper respiratory infection, unspecified J06.9 [facility] [id number] [place] [address] 61761- 3234 10 Oct, 2016 [facility] [id number] [place] [address] 20802- 2596 08 Oct, 2016 [facility] [id number] [place] [address] 94080- 8283 02 Oct, 2016 Anxiety F41.9 [place] [address] 04432- 6945 Sep, [place] [id number] [place] [address] 59254- 3442 Sep, SVETLANA treated with BiPAP G47.33 and Asthma J45.909 [place] [id number] [place] [address] 30356- 1732 Sep, SVETLANA treated with BiPAP G47.33 ; Obesity (BMI 30.0-34.9) E66.9 and Reactive depression F32.9 [facility] [id number] [place] [address] 92113- 8208 Sep, Anxiety F41.9 [facility] [id number] [place] [address] 94107- 5059 Aug, [place] [id number] [place] [address] 87971- 9144 Aug, Insomnia G47.00 [place] [id number] [place] [address] 54164 2547 Aug, [place] [id number] [place] [address] 73466- 2543 Aug, SVETLANA treated with BiPAP G47.33 and On supplemental oxygen therapy Z99.81 [facility] [id number] [place] [address] 55736- 2541 Jul, On supplemental oxygen therapy Z99.81 ; Obesity (BMI 30.0- 34.9) E66.9 and SVETLANA treated with BiPAP G47.33 [facility] [id number] [place] [address] 99270- 2100 17 Jul, 2016 Mucus plugging of bronchi J98.09 ; On supplemental oxygen therapy Z99.81 ; Acute midline thoracic back pain M54.6 and SVETLANA treated with BiPAP G47.33 [facility] [id number] [place] [address] 04861- 6518 16 Jul, 2016 [facility] [address] 31537- 0020 Jul, [facility] [id number] [place] [address] 26582- 0301 Jul, [facility] [address] 82195- 3924 May, [facility] [address] 38501- 3406 May, [facility] [id number] [place] [address] 25718- 5800 Apr, [facility] [id number] [place] [address] 20743- 8145 Apr, [facility] [id number] [place] [address] 94867- 6872 Apr, Insomnia G47.00 ; Anemia D64.9 ; OCD (obsessive compulsive disorder) F42 ; Anxiety F41.9 ; Asthma J45.909 and Obesity (BMI 30.0-34.9) E66.9 [facility] [id number] [place] [address] 19885- 0901 Feb, [facility] [address] 95637- 2932 Feb, Insomnia G47.00 [facility] [id number] [place] [address] 66713- 2874 Nov, [facility] [address] 46167- 6988 15 Nov, 2015 [facility] [address] [place] [address] 93113- 4557 Nov, [facility] [id number] [place] [address] 33768- 7556 Nov, OCD (obsessive compulsive disorder) F42 ; Anxiety F41.9 ; Insomnia G47.00 ; Anemia D64.9 and Asthma J45.909 [facility] [id number] [place] [address] 25363- 2724 Nov, [facility] [id number] [place] [address] 77278- 3410 Oct, [facility] [id number] [place] [address] 04793- 8007 Aug, OCD (obsessive compulsive disorder) F42 ; Chronic cellulitis L03.90 ; Anxiety F41.9 ; Insomnia G47.00 ; Anemia D64.9 and Asthma J45.909 [facility] [id number] [place] [address] 26929- 6933 Aug, [facility] [id number] [place] [address] 04685- 4034 Jul, [facility] [id number] [place] [address] 87229- 7825 Jul, OCD (obsessive compulsive disorder) F42 ; Chronic cellulitis L03.90 ; Anxiety F41.9 ; Insomnia G47.00 and Anemia D64.9 [facility] [address] [address]- 8685 Dec, [facility] [id number] [place] [address] 37522- 8654 Dec, [facility] [id number] [place] [address] 72236- 3170 Aug, [facility] [id number] [place] [address] 83860- 2503 Aug, [facility] [place] [facility] [address] [id number] [place] [address]- 5463 Aug, [facility] [place] [facility] [address] [id number] [place] [address]- 5417 Aug, [facility] [place] [facility] [address] [id number] [place] [address]- 5275 Aug, [facility] [place] [facility] [address] [id number] [place] [address]- 6039 Aug, [facility] [place] [facility] [address] [id number] [place] [address]- 1315 Aug, [facility] [place] [facility] [address] [id number] [place] [address]- 7044 Jul, [facility] [place] [facility] [address] [id number] [place] [address]- 3870 Jul, [facility] [place] [facility] [address] [id number] [place] [address]- 2297 Jul, [facility] [place] [facility] [address] [id number] [place] [address]- 7654 Jul, [facility] [place] [facility] [address] [id number] [place] [address]- 9372 Apr, [facility] [place] [facility] [address] [id number] [place] [address]- 0341 Apr, [facility] [place] [facility] [address] [id number] [address]- 5461 Feb, [facility] [place] [facility] [address] [id number] [place] [address]- 9651 Feb, [facility] [place] [facility] [address] [id number] [place] [address]- 6784 Feb, [facility] [place] [facility] [address] [id number] [place] 6204 Feb, [facility] [place] [facility] [address] [id number], [place] [address]- 3212 January, [facility] [address] [id number] [place] [address]- 2748 January, [facility] [place] [facility] [address] [id number] [place] [address]- 1783 January, [facility] [place] [facility] [address] [id number] [place] [address]- 0334 Dec, [facility] [place] [facility] [address] [id number] [place] [address]- 4921 Dec, [facility] [place] [facility] [address] [id number] [place] [address]- 2369 Dec, [facility] [place] [facility] [address] [id number] [place] [address]- 2163 Dec, [facility] [place] [facility] [address] [id number] [place] [address]- 4945 Nov, [facility] [place] [facility] [address] [id number] [place] [address]- 0944 Nov, [facility] [place] [facility] [address] [id number] [place] [address]- 9594 Nov, [facility] [place] [facility] [address] [id number] [place] [address]- 7091 Nov, [facility] [place] [facility] [address] [id number] [place] [address]- 2127 Nov, [facility] [place] [facility] [address] [id number] [place] [address]- 9371 Nov, [facility] [place] [facility] [address] [id number] [place] [address]- 2774 Oct, [facility] [place] [facility] [address] [id number] [place] [address]- 2435 Oct, [facility] [place] [facility] [address] [id number] [place] [address]- 0612 Oct, [facility] [place] [facility] [address] [id number] [place] [address]- 8225 Oct, [facility] [place] [facility] [address] [id number] [place] [address]- 0066 Oct, [facility] [place] [facility] [address] [id number] [place] [address]- 8216 Oct, [facility] [place] [facility] [address] [id number] [place] [address]- 3119 Oct, [facility] [place] [facility] [address] [id number] [place] [address]- 9914 Oct, [facility] [place] [facility] [address] [id number] [place] [address]- 3666 Oct, [facility] [place] [facility] [address] [id number] [place] [address]- 9099 Oct, [facility] [place] [facility] [address] [id number] [place] [address]- 6554 Oct, [facility] [place] [facility] [address] [id number] [place] [address]- 2420 Oct, [facility] [place] [facility] [address] [id number] [place] [address]- 4537 Sep, [facility] [place] [facility] [address] [id number] [place] [address]- 9035 Sep, [facility] [place] [facility] [address] [id number] [place] [address]- 5041 Sep, [facility] [place] [facility] [address] [id number] [place] [address]- 6850 Sep, [facility] [place] [facility] [address] [id number] [place] [address]- 3457 Aug, [facility] [place] [facility] [address] [id number] [place] [address]- 5756 Aug, [facility] [place] [facility] [address] [facility] [id number] [place] [address]- 9669 Aug, [facility] [address] [facility] [id number], [place] [address]- 5164 Aug, [facility] [address] [facility] [id number], [place] [address]- 9301 Aug, [facility] [address] [facility] [id number], [place] [address]- 2067 Aug, [facility] [address] [facility] [id number], [place] [address]- 4814 Aug, IMMUNIZATIONS No Known Immunizations SOCIAL HISTORY Never Assessed REASON FOR VISIT [facility] PLAN OF CARE VITAL SIGNS MEDICATIONS No Known Medications RESULTS Name Result Date Reference Range [employer] 2017-08-18 PROCEDURES Procedure Date Ordered Result Body Site No Charge Aug 18, 2017 INSTRUCTIONS MEDICATIONS ADMINISTERED No Known Medications MEDICAL (GENERAL) HISTORY Type Description Date Medical History asthma Medical History anxiety Medical History gastric bypass Medical History anemia Medical History sleep apnea treated with biPAP Surgical History gastric bypass 2002 Hospitalization History surgery Hospitalization History anemia Hospitalization History sepsis Hospitalization History Acute hypoxic resp distress--[facility] 07/28/16 Hospitalization History Denies any past psychiatric hospitalization
--- OUTSIDE RECORDS SUMMARY | 2018-10-07 10:30 | XMS REPORT ---
Author Author BRICE RAMIREZ Organization [employer] Address Unknown Phone Unavailable Care Team Providers Care Rouge Miller Name Role Phone BRICE RAMIREZ CP Unavailable Allergies No Known Allergies Problems Problem Type Condition Code Onset Dates Condition Status Problem Anemia D64.9 Active Problem Asthma J45.909 Active Problem Obesity (BMI 30.0-34.9) E66.9 Active Problem On supplemental oxygen therapy Z99.81 Active Problem Anxiety F41.9 Active Problem Insomnia G47.00 Active Problem OCD (obsessive compulsive disorder) F42 Active Problem Chronic cellulitis L03.90 Active Medications No Known Medications Results No Known Results Summary Purpose [employer] Submission
--- OUTSIDE RECORDS SUMMARY | 2018-10-07 10:30 | XMS REPORT ---
Author Author SATHYA VALDES [facility] [employer] Address Unknown Phone Unavailable Care Team Providers Care Drafter Tool Design Name Role Phone SATHYA VALDES CP Unavailable Allergies, Adverse Reactions, Alerts Substance Reaction Event Type Morphine Sulfate itching Drug Allergy Problems Problem Type Condition Code Onset Dates Condition Status Assessment Anemia D64.9 Active Assessment Anxiety F41.9 Active Assessment Insomnia G47.00 Active Problem Chronic cellulitis L03.90 Active Problem Anxiety F41.9 Active Problem OCD (obsessive compulsive disorder) F42 Active Assessment OCD (obsessive compulsive disorder) F42 Active Assessment Chronic cellulitis L03.90 Active Problem Insomnia G47.00 Active Problem Anemia D64.9 Active Medications Medication Code System Code Instructions Start Date End Date Status Dosage Sulfamethoxazole-TMP DS [facility] [address]-80 800-160 MG Orally 2 times a day Aug 09, 2015 Aug 19, 2015 1 tablet Ventolin HFA [facility] [address]-39 90 MCG/ACT Inhalation every 4 hrs 2 puffs as needed Zoloft [facility] [address]-87 100 MG Orally Aug 09, 2015 2 tablet every other day x 5 then every 72 hours x 3 times then per week x 2 Clonidine HCl [facility] [address]-71 0.1 MG Orally 2 times a day Aug 09, 2015 1 tablet Symbicort [facility] [address]-42 160-4.5 mcg/actuation Nov 17, 2013 inhale 2 puffs by Inhalation route in the morning and evening 2 times per day for 30 days maintenace inhaler. Use daily even if no symptoms. FluvoxaMINE Maleate ER [facility] [address]-14 100 MG Orally Once a day Aug 09, 2015 1 capsule at bedtime Zoloft [facility] [address]-59 100 MG Orally Once a day Aug 08, 2014 2 tablet by Oral route 1 time per day Ambien [facility] [address]-68 10 MG Orally Once a day Aug 09, 2015 1 tablet at bedtime as needed Procedures Procedure Coding System Code Date COMPREHEN METABOLIC PANEL CPT-4 88464 Aug 09, 2015 ASSAY THYROID STIM HORMONE CPT-4 82320 Aug 09, 2015 COMPLETE CBC W/AUTO DIFF WBC CPT-4 33654 Aug 09, 2015 ASSAY OF VITAMIN D CPT-4 86192 Aug 09, 2015 VITAMIN B-12 CPT-4 07426 Aug 09, 2015 VENIPUNCT, ROUTINE* CPT-4 38080 Aug 09, 2015 ASSAY OF IRON CPT-4 09426 Aug 09, 2015 IRON BINDING TEST CPT-4 10548 Aug 09, 2015 Office Visit, Est Pt., Level 4 CPT-4 06578 Aug 09, 2015 URINALYSIS, AUTO, W/O SCOPE CPT-4 44080 Aug 09, 2015 Vital Signs Date/Time: Aug 09, 2015 Temperature 97.4 F Weight 240.1 lbs Height 65 in BMI 39.95 Index Blood Pressure Diastolic 70 mmHg Blood Pressure Systolic 104 mmHg Cardiac Monitoring Heart Rate 72 bpm Results Name Result Date Reference Range Unit Abnormality Flag ROUTINE VENIPUNCTURE IRON + TIBC Summary Purpose eClinicalWorks Submission
--- OUTSIDE RECORDS SUMMARY | 2018-10-07 10:30 | XMS REPORT ---
Author Author BRICE RAMIREZ Organization [facility] Address [address] [place] [address] Care Team Providers Care Structural Steel Painter Name Role Phone BRICE RAMIREZ Unavailable PROBLEMS Type Condition ICD9-CM Code [id number] Code Onset Dates Condition Status SNOMED Code Problem Anemia D64.9 Active 100994428 Problem Anxiety F41.9 Active 25048616 Problem Insomnia G47.00 Active 303948014 Problem SVETLANA treated with BiPAP G47.33 Active 84244424 Problem On supplemental oxygen therapy Z99.81 Active 579940433940 Problem OCD (obsessive compulsive disorder) F42 Active 024010342 Problem Chronic cellulitis L03.90 Active 614618833 Problem Asthma J45.909 Active 970034977 Problem Obesity (BMI 30.0-34.9) E66.9 Active [id number] ALLERGIES Unknown Allergies SOCIAL HISTORY No smoking Hx information available PLAN OF CARE VITAL SIGNS MEDICATIONS Medication Instructions Dosage Frequency Start Date End Date Duration Status Celexa 10 MG Orally Once a day 1/2 tablet for the first week and then 1 full talbet 24h Aug, Active RESULTS No Results PROCEDURES No Known procedures IMMUNIZATIONS No Known Immunizations
--- OUTSIDE RECORDS SUMMARY | 2018-10-07 10:31 | XMS REPORT ---
Author Author SATHYA VALDES [facility] eClinicalWorks Address Unknown Phone Unavailable Care Team Providers Care Test Administrator Name Role Phone SATHYA VALDES CP Unavailable Allergies, Adverse Reactions, Alerts Substance Reaction Event Type Morphine Sulfate itching Drug Allergy Problems Problem Type Condition Code Onset Dates Condition Status Assessment Anemia D64.9 Active Assessment Anxiety F41.9 Active Assessment Insomnia G47.00 Active Assessment Asthma J45.909 Active Problem Chronic cellulitis L03.90 Active Problem Anxiety F41.9 Active Problem OCD (obsessive compulsive disorder) F42 Active Assessment OCD (obsessive compulsive disorder) F42 Active Assessment Chronic cellulitis L03.90 Active Problem Insomnia G47.00 Active Problem Anemia D64.9 Active Medications Medication Code System Code Instructions Start Date End Date Status Dosage Ativan [facility] [address]-80 0.5 MG Orally 2 times a day 1 tablet as needed Clonidine HCl [facility] [address]-01 0.1 MG Orally 2 times a day Aug 09, 2015 1 tablet Ventolin HFA [facility] [address]-78 90 MCG/ACT Inhalation every 4 hrs 2 puffs as needed Ambien [facility] [address]-53 10 MG Orally Once a day Aug 09, 2015 1 tablet at bedtime as needed Symbicort [facility] [address]-95 160-4.5 mcg/actuation Nov 17, 2013 inhale 2 puffs by Inhalation route in the morning and evening 2 times per day for 30 days maintenace inhaler. Use daily even if no symptoms. Flintstones Gummies [facility] 44[address]383 2 Orally 2 times a day Sep 13, 2015 as directed Zoloft NDC 0 100 mg Oral 2 times a day 1 tablet Procedures Procedure Coding System Code Date Office Visit, Est Pt., Level 4 CPT-4 28016 Sep 13, 2015 Vital Signs Date/Time: Sep 13, 2015 Temperature 96.8 F Weight 264.0 lbs Height 65 in BMI 43.93 Index Blood Pressure Diastolic 70 mmHg Blood Pressure Systolic 120 mmHg Cardiac Monitoring Heart Rate 78 bpm Results No Known Results Summary Purpose eClinicalWorks Submission
--- OUTSIDE RECORDS SUMMARY | 2018-10-07 10:31 | XMS REPORT ---
Author Author BRICE MCKEON [facility] Address [address] [place] [address] Care Team Providers Care Delivery Engineer Name Role Phone BRICE MCKEON Unavailable PROBLEMS Type Condition ICD9-CM Code [id number] Code Onset Dates Condition Status SNOMED Code Problem Asthma exacerbation J45.901 Active 917197256 Problem Habitual self-excoriation F42.4 Active 379979115 Problem Seasonal allergic rhinitis due to pollen J30.1 Active 89263698 Problem Other obesity due to excess calories E66.09 Active 63706083435461 Problem Body mass index (BMI) of 40.0-44.9 in adult Z68.41 Active 687772228 Problem Adjustment disorder with depressed mood F43.21 Active 94236414 Problem Psychophysiological insomnia F51.04 Active 805757103 Problem Moderate persistent asthma without complication J45.40 Active 977121222 Problem Eating disorder, unspecified F50.9 Active 10125318 Problem Insomnia G47.00 Active 609639893 Problem Anxiety F41.9 Active 27107875 Problem OCD (obsessive compulsive disorder) F42 Active 151822696 Problem Chronic cellulitis L03.90 Active 360670767 Problem SVETLANA treated with BiPAP G47.33 Active 40969035 Problem Iron deficiency anemia, unspecified iron deficiency anemia type D50.9 Active 29094458 Problem Obesity (BMI 30.0-34.9) E66.9 Active 327114554917065 Problem Reactive depression F32.9 Active 32295516 Problem Asthma J45.909 Active 375242980 Problem Other chronic pain G89.29 Active 57299106 ALLERGIES Substance Reaction Event Type Date Status Morphine Sulfate itching Drug Allergy Feb, Active SOCIAL HISTORY Never Assessed PLAN OF CARE Activity Details Follow Up 2 Weeks with anoop Mckeon/richard exacerbation Reason: VITAL SIGNS Height 65 in 2017-02-19 Weight 222 lbs 2017-02-19 Temperature 98.2 degrees Fahrenheit 2017-02-19 Heart Rate 80 bpm 2017-02-19 Respiratory Rate 20 2017-02-19 BMI 36.94 kg/m2 2017-02-19 Blood pressure systolic 108 mmHg 2017-02-19 Blood pressure diastolic 60 mmHg 2017-02-19 MEDICATIONS Medication Instructions Dosage Frequency Start Date End Date Duration Status Symbicort 160-4.5 mcg/actuation Inhalation Twice a day 2 puffs 12h 27 Oct, 2013 Active Celexa 10 mg Orally Once a day 1 tablet 24h Aug, Active Ventolin HFA 90 MCG/ACT Inhalation every 4 hrs 2 puffs as needed 4h Active Hydrocodone-Acetaminophen 5-325 MG Orally BID PRN pain 1 tablet as needed Sep, Active PredniSONE 10 mg Orally Once a day 4 [id number], [id number] 24h Feb, Mar, 30 day(s) Active Ativan 0.5 MG Orally 2 times a day 1 tablet as needed 12h Apr, Active Zolpidem Tartrate 10 mg TAKE 1 TABLET BY MOUTH EVERY NIGHT AT BEDTIME NEEDED Active RESULTS No Results PROCEDURES No Known procedures IMMUNIZATIONS No Known Immunizations MEDICAL (GENERAL) HISTORY [...]
--- OUTSIDE RECORDS SUMMARY | 2018-10-07 10:31 | XMS REPORT ---
Author Author SATHYA VALDES [facility] eClinicalWorks Address Unknown Phone Unavailable Care Team Providers Care Senior Sales Assistant Name Role Phone SATHYA VALDES CP Unavailable Allergies, Adverse Reactions, Alerts Substance Reaction Event Type Morphine Sulfate itching Drug Allergy Problems Problem Type Condition Code Onset Dates Condition Status Assessment OCD (obsessive compulsive disorder) F42 Active Assessment Insomnia G47.00 Active Assessment Anemia D64.9 Active Problem Obesity (BMI 30.0-34.9) E66.9 Active Problem OCD (obsessive compulsive disorder) F42 Active Problem Asthma J45.909 Active Problem Insomnia G47.00 Active Problem Anemia D64.9 Active Problem Chronic cellulitis L03.90 Active Problem Anxiety F41.9 Active Assessment Obesity (BMI 30.0-34.9) E66.9 Active Assessment Asthma J45.909 Active Assessment Anxiety F41.9 Active Medications Medication Code System Code Instructions Start Date End Date Status Dosage Flintstones Gummies [facility] [address]49 2 Orally 2 times a day Sep 13, 2015 as directed Ambien [facility] [address]-97 10 MG Orally Once a day Aug 09, 2015 1 tablet at bedtime as needed Clonidine HCl [facility] [address]-30 0.1 MG Orally twice a day May 12, 2016 1 tablet Ipratropium-Albuterol [facility] [address]-00 20-100 MCG/ACT Inhalation Four times a day December 03, 2015 1 puff Symbicort [facility] [address]-31 160-4.5 mcg/actuation Inhalation Twice a day Nov 17, 2013 2 puffs Contrave [facility] [address]-47 8-90 MG Orally one tablet daily for 7 then bid x 7 then two in the am for 7 then 2 bid May 12, 2016 Nov 08, 2016 1 tablet Fluvoxamine Maleate [facility] [address]-84 100 MG Orally Once a day May 12, 2016 1 tablet at bedtime Ativan [facility] [address]-98 0.5 MG Orally 2 times a day May 12, 2016 1 tablet as needed Ventolin HFA [facility] 77507425760 90 MCG/ACT Inhalation every 4 hrs 2 puffs as needed Procedures Procedure Coding System Code Date COMPLETE CBC W/AUTO DIFF WBC CPT-4 55484 May 12, 2016 IRON BINDING TEST CPT-4 76857 May 12, 2016 Office Visit, Est Pt., Level 4 CPT-4 17675 May 12, 2016 VENIPUNCT, ROUTINE* CPT-4 16917 May 12, 2016 DEXAMETHASONE 4MG/ML (PER 1 MG) CPT-4 J1100 May 12, 2016 ASSAY OF IRON CPT-4 72799 May 12, 2016 DEPO MEDROL 40 MG/ML CPT-4 J1030 May 12, 2016 THER/PROPH/DIAG INJ, SC/IM CPT-4 46584 May 12, 2016 Vital Signs Date/Time: May 12, 2016 Cardiac Monitoring Heart Rate 82 bpm Weight 271.8 lbs Height 65 in BMI 45.22 Index Blood Pressure Diastolic 73 mmHg Blood Pressure Systolic 132 mmHg Results No Known Results Summary Purpose eClinicalWorks Submission
--- OUTSIDE RECORDS SUMMARY | 2018-10-07 10:31 | XMS REPORT ---
Author Author SATHYA VALDES [facility] eClinicalWorks Address Unknown Phone Unavailable Care Team Providers Care Client Server Programmer Name Role Phone SATHYA VALDES Unavailable Allergies No Known Allergies Problems Problem Type Condition Code Onset Dates Condition Status Problem Chronic cellulitis L03.90 Active Problem Anxiety F41.9 Active Problem OCD (obsessive compulsive disorder) F42 Active Problem Insomnia G47.00 Active Problem Anemia D64.9 Active Medications No Known Medications Results No Known Results Summary Purpose eClinicalWorks Submission
--- OUTSIDE RECORDS SUMMARY | 2018-10-07 10:31 | XMS REPORT ---
Author Author BRICE RAMIREZ Organization [facility] Address [address] [place] [address] Care Team Providers Care Progressive Assembler And Fitter Name Role Phone BRICE RAMIREZ Unavailable PROBLEMS Type Condition ICD9-CM Code BXF94-VA Code Onset Dates Condition Status SNOMED Code Problem Psychophysiological insomnia F51.04 Active 567415275 Problem Eating disorder, unspecified F50.9 Active 74333219 Problem Adjustment disorder with depressed mood F43.21 Active 95294293 Problem COPD exacerbation J44.1 Active 133716663 Problem Insomnia G47.00 Active 565584476 Problem BMI 45.0-49.9, adult Z68.42 Active 892825719 Problem OCD (obsessive compulsive disorder) F42 Active 105141775 Problem Chronic cellulitis L03.90 Active 521646409 Problem Moderate persistent asthma without complication J45.40 Active 814386964 Problem Body mass index (BMI) of 40.0-44.9 in adult Z68.41 Active 216858507 Problem Severe persistent asthma with acute exacerbation J45.51 Active 934066068 Problem Other obesity due to excess calories E66.09 Active 28082404627927 Problem Obesity (BMI 30.0-34.9) E66.9 Active 212881083966550 Problem SVETLANA treated with BiPAP G47.33 Active 94697986 Problem Anxiety F41.9 Active 98695767 Problem Asthma J45.909 Active 031225898 Problem Iron deficiency anemia, unspecified iron deficiency anemia type D50.9 Active 51230918 Problem Asthma exacerbation J45.901 Active 489012082 Problem Reactive depression F32.9 Active 30433831 Problem Seasonal allergic rhinitis due to pollen J30.1 Active 68587287 Problem Other chronic pain G89.29 Active 03819557 Problem Habitual self-excoriation F42.4 Active 365448226 ALLERGIES No Information ENCOUNTERS Encounter Location Date Diagnosis [facility] [id number] [place] [address] 35880- 3572 Feb, Anxiety F41.9 and Psychophysiological insomnia F51.04 [place] [address] 85497- 8989 January, Acute pain of left knee M25.562 and BMI 50.0-59.9, adult Z68.43 [place] [address] 42589- 1115 January, [place] [address] 56715- 6593 January, COPD exacerbation J44.1 and Severe persistent asthma with acute exacerbation J45.51 [place] [address] 22794- 0587 January, Anxiety F41.9 and Psychophysiological insomnia F51.04 [place] [address] 25463- 7459 January, COPD exacerbation J44.1 and Left medial knee pain M25.562 [place] [address] 77277- 1265 Dec, COPD with exacerbation J44.1 ; BMI 45.0-49.9, adult Z68.42 ; SVETLANA treated with BiPAP G47.33 and Psychophysiological insomnia F51.04 [place] [id number] [place] [address] 75806- 6315 Dec, [place] [id number] [place] [address] 98046- 9386 Dec, Acute pain of left knee M25.562 ; Unspecified fall, initial encounter W19.XXXA ; Unspecified place in unspecified non-institutional (private ) residence as the place of occurrence of the external cause Y92.009 ; BMI 45.0- 49.9, adult Z68.42 and Severe persistent asthma with acute exacerbation J45.51 [place] [id number] [place] [address] 29788- 1591 Dec, Anxiety F41.9 and Psychophysiological insomnia F51.04 [facility] [id number] [place] [address] 30632- 7894 Nov, Psychophysiological insomnia F51.04 [place] [address] 84003- 1878 Oct, [place] [address] 06134- 2354 Oct, Anxiety F41.9 [place] [address] 66709- 0574 Oct, [place] [address] 69480- 5438 Oct, Severe persistent asthma with acute exacerbation J45.51 ; Tobacco abuse Z72.0 and BMI 45.0-49.9, adult Z68.42 [place] [address] 09834- 0515 Oct, Psychophysiological insomnia F51.04 [place] [id number] [place] [address] 13727- 7935 Sep, Anxiety F41.9 [place] [address] 82646- 7801 Sep, Anxiety F41.9 and Habitual self-excoriation F42.4 [place] [id number] [place] [address] 97013- 2002 Sep, Psychophysiological insomnia F51.04 [place] [id number] [place] [address] 44077- 2182 Aug, Anxiety F41.9 [place] [address] 55541- 0012 Aug, Asthma J45.909 [place] [address] 02207- 1414 Aug, Anxiety F41.9 [facility] [id number] [place] [address] 33371 -7841 Aug, Acute bronchitis, unspecified organism J20.9 [facility] [id number] [place] [address] 00746- 0340 Aug, Psychophysiological insomnia F51.04 [facility] [id number] [place] [address] 57735- 8013 Jul, Therapeutic drug monitoring Z51.81 [place] [id number] [place] [address] 99818- 1781 Jul, [place] [address] 52596- 5678 Jul, Habitual self-excoriation F42.4 [place] [address] 72454- 7501 Jul, [place] [address] 74674- 1614 Jul, [place] [id number] [place] [address] 64679- 8559 Jun, SVETLANA treated with BiPAP G47.33 ; Moderate persistent asthma without complication J45.40 ; Anxiety F41.9 ; Other obesity due to excess calories E66.09 ; Body mass index (BMI) of 40.0-44.9 in adult Z68.41 ; Psychophysiological insomnia F51.04 and Encounter for immunization Z23 [place] [id number] [place] [address] 72401- 6924 Jun, [place] [id number] [place] [address] 58845- 3168 Jun, Habitual self-excoriation F42.4 ; Adjustment disorder with depressed mood F43.21 ; Psychophysiological insomnia F51.04 and Eating disorder , unspecified F50.9 [facility] [id number] [place] [address] 38245- 6390 Jun, Visit for TB skin test Z11.1 [facility] [address] [address] 6126 Jun, Habitual self-excoriation F42.4 and Psychophysiological insomnia F51.04 [facility] [address] [address]- 5879 Jun, Asthma J45.909 [facility] [id number] [place] [address] 70047- 0235 May, Asthma J45.909 [facility] [id number] [place] [address] 95407- 1872 May, [place] [id number] [place] [address] 07216- 4275 May, Habitual self-excoriation F42.4 and Psychophysiological insomnia F51.04 [place] [address] [place] [address] 45288- 9060 Apr, Habitual self-excoriation F42.4 ; Adjustment disorder with depressed mood F43.21 ; Psychophysiological insomnia F51.04 and Eating disorder , unspecified F50.9 [place] [address] [place] [address] 27952- 2021 Apr, [place] [address] [place] [address] 23172- 2363 Apr, Habitual self-excoriation F42.4 ; Adjustment disorder with depressed mood F43.21 ; Psychophysiological insomnia F51.04 and Other halfway (current) drug therapy Z79.899 [place] [address] [address]- 4111 Mar, [place] [id number] [place] [address] 03281- 3457 Mar, [place] [address] [place] [address] 08858- 5045 Mar, Anxiety F41.9 [place] [id number] [place] [address] 47420- 3252 Feb, Asthma J45.909 [facility] [id number] [place] [address] 84011- 5026 Feb, [facility] [id number] [place] [address] 38037- 3891 Feb, Anxiety F41.9 [place] [id number] [place] [address] 86534- 4884 Feb, Asthma exacerbation J45.901 and Seasonal allergic rhinitis due to pollen J30.1 [place] [id number] [place] [address] 92100- 3515 January, [place] [id number] [place] [address] 71819- 5407 January, Anxiety F41.9 [place] [address] 41140- 2217 Dec, Therapeutic drug monitoring Z51.81 [place] [id number] [place] [address] 23369- 2383 Dec, Anxiety F41.9 and Asthma J45.909 [place] [id number] [place] [address] 97032- 8266 Nov, Asthma J45.909 [place] [id number] [place] [address] 05138- 6468 Nov, Anxiety F41.9 [place] [id number] [place] [address] 77669- 8429 Oct, Asthma exacerbation J45.901 ; Pain in right knee M25.561 ; Pain in left knee M25.562 and Open wound of eyebrow, left, subsequent encounter S01.102D [facility] [address] [place] [address] 19970- 3522 16 Oct, 2016 [facility] [address] 91366 -3241 Oct, Other viral agents as the cause of diseases classified elsewhere B97.89 and Acute upper respiratory infection, unspecified J06.9 [place] [address] 61117- 6819 10 Oct, 2016 [place] [address] 03131- 8934 Oct, [place] [address] 16689- 2020 Oct, Anxiety F41.9 [place] [address] 69690- 6025 Sep, [place] [address] 14374- 7988 Sep, SVETLANA treated with BiPAP G47.33 and Asthma J45.909 [place] [address] 05802- 8260 Sep, SVETLANA treated with BiPAP G47.33 ; Obesity (BMI 30.0-34.9) E66.9 and Reactive depression F32.9 [place] [address] 07239- 5614 Sep, Anxiety F41.9 [place] [address] 06554- 9557 Aug, [place] [address] 31032- 2763 Aug, Insomnia G47.00 [place] [address] 44522- 9887 Aug, [place] [address] [address]- 1050 Aug, SVETLANA treated with BiPAP G47.33 and On supplemental oxygen therapy Z99.81 [place] [address] 73722- 9258 Jul, On supplemental oxygen therapy Z99.81 ; Obesity (BMI 30.0- 34.9) E66.9 and SVETLANA treated with BiPAP G47.33 [facility] [id number] [place] [address] 83938- 0814 17 Jul, 2016 Mucus plugging of bronchi J98.09 ; On supplemental oxygen therapy Z99.81 ; Acute midline thoracic back pain M54.6 and SVETLANA treated with BiPAP G47.33 [facility] [id number] [place] [address] 98186- 4341 16 Jul, 2016 [facility] [id number] [place] [address] 46891- 0414 Jul, [facility] [id number] [place] [address] 51830- 1354 Jul, [facility] [id number] [place] [address] 27611- 8380 May, [facility] [id number] [place] [address] 91615- 6101 May, [facility] [id number] [place] [address] 95775- 0462 Apr, [facility] [id number] [place] [address] 92866- 3334 Apr, [facility] [id number] [place] [address] 75407- 3702 Apr, Insomnia G47.00 ; Anemia D64.9 ; OCD (obsessive compulsive disorder) F42 ; Anxiety F41.9 ; Asthma J45.909 and Obesity (BMI 30.0-34.9) E66.9 [facility] [id number] [place] [address] 98802- 7886 Feb, [facility] [id number] [place] [address] 95552- 7153 Feb, Insomnia G47.00 [facility] [id number] [address]- 5009 17 Nov, 2015 [facility] [address] [place] [address] 64518- 5681 Nov, [facility] [id number] [place] [address] 88054- 0698 15 Nov, 2015 [facility] [id number] [place] [address] 81113- 4356 14 Nov, 2015 OCD (obsessive compulsive disorder) F42 ; Anxiety F41.9 ; Insomnia G47.00 ; Anemia D64.9 and Asthma J45.909 [facility] [id number] [place] [address] 08408- 8427 Nov, [facility] [id number] [place] [address] 22463- 1094 Oct, [facility] [id number] [place] [address] 97711- 4447 Aug, OCD (obsessive compulsive disorder) F42 ; Chronic cellulitis L03.90 ; Anxiety F41.9 ; Insomnia G47.00 ; Anemia D64.9 and Asthma J45.909 [facility] [address] [place] [address] 12045- 5964 Aug, [facility] [id number] [place] [address] 32927- 7015 Jul, [facility] [id number] [place] [address] 81743- 9513 Jul, OCD (obsessive compulsive disorder) F42 ; Chronic cellulitis L03.90 ; Anxiety F41.9 ; Insomnia G47.00 and Anemia D64.9 [facility] [address] [place] [address] 31135- 3991 Dec, [facility] [address] [place] [address] 01187- 5627 Dec, [facility] [id number] [place] [address] 44233- 6719 Aug, [facility] [place] [facility] [address] [id number] [place] [address]- 2776 Aug, [facility] [place] [facility] [address] [id number] [place] [address]- 3050 Aug, [facility] [place] [facility] [address] [facility] [id number] [place] [address]- 2544 Aug, [facility] [place] [facility] [address] [id number] [place] [address]- 4029 Aug, [facility] [place] [facility] [address] [id number] [place] [address]- 6909 Aug, [facility] [place] [facility] [address] [id number] [place] [address]- 9754 Aug, [facility] [place] [facility] [address] [id number] [place] [address]- 1355 Jul, [facility] [place] [facility] [address] [id number] [place] [address]- 7995 Jul, [facility] [place] [facility] [address] [id number] [place] [address]- 4199 Jul, [facility] [place] [facility] [address] [facility] [id number] [place] [address]- 6524 Jul, [facility] [place] [facility] [address] [id number] [place] [address]- 7253 Apr, [facility] [place] [facility] [address] [id number] [place] [address]- 2919 Apr, [facility] [place] [facility] [address] [id number] [place] [address]- 5681 Feb, [facility] [place] [facility] [address] [id number] [place] [address]- 6278 Feb, [facility] [place] [facility] [address] [facility] [id number] [place] [address]- 2608 Feb, [facility] [place] [facility] [address] [id number] [place] [address]- 9454 Feb, [facility] [place] [facility] [address] [id number] [place] [address]- 7882 January, [facility] [place] [facility] [address] [id number] [place] [address]- 0258 January, [facility] [place] [facility] [address] [id number] [place] [address]- 1969 January, [facility] [place] [facility] [address] [id number] [place] [address]- 2660 Dec, [facility] [place] [facility] [address] [id number] [place] [address]- 2637 Dec, [facility] [place] [facility] [address] [id number] [place] [address]- 6363 Dec, [facility] [place] [facility] [address] [id number] [place] [address]- 4598 Dec, [facility] [place] [facility] [address] [id number] [place] [address]- 9842 Nov, [facility] [place] [facility] [address] [id number] [place] [address]- 0399 Nov, [facility] [place] [facility] [address] [id number] [place] [address]- 5215 Nov, [facility] [place] [facility] [address] [id number] [place] [address]- 2187 Nov, [facility] [place] [facility] [address] [id number] [place] [address]- 4393 Nov, [facility] [place] [facility] [address] [id number] [place] [address]- 8831 Nov, [facility] [place] [facility] [address] [id number] [place] [address]- 6265 Oct, [facility] [place] [facility] [address] [id number] [place] [address]- 3939 Oct, [facility] [place] [facility] [address] [id number] [place] [address]- 4015 Oct, [facility] [place] [facility] [address] [id number] [place] [address]- 5946 Oct, [facility] [place] [facility] [address] [facility] [id number] [place] [address]- 1926 Oct, [facility] [place] [facility] [address] [id number] [place] [address]- 4889 Oct, [facility] [place] [facility] [address] [id number] [place] [address]- 9903 Oct, [facility] [place] [facility] [address] [facility] [id number] [place] [address]- 5469 Oct, [facility] [place] [facility] [address] [facility] [id number] [place] [address]- 2545 Oct, [facility] [place] [facility] [address] [facility] [id number] [place] [address]- 9430 Oct, [facility] [place] [facility] [address] [facility] [id number] [place] [address]- 4729 Oct, [facility] [place] [facility] [address] [facility] [id number] [place] [address]- 1257 Oct, [facility] [place] [facility] [address] [facility] [id number] [place] [address]- 9703 Sep, [facility] [place] [facility] [address] [facility] [id number] [place] [address]- 6665 Sep, [facility] [place] [facility] [address] [id number] [place] [address]- 1836 Sep, [facility] [place] [facility] [address] [facility] [id number] [place] [address]- 4721 Sep, [facility] [place] [facility] [address] [facility] [id number] [place] [address]- 2431 Aug, [facility] [address] [facility] [id number] [place] 9388 Aug, [facility] [id number] 8556 Aug, [facility] [id number] [address]- 5842 Aug, [facility] [id number] [address]- 9867 Aug, [facility] [id number] [address]- 0964 Aug, [facility] [id number] [address]- 1140 Aug, IMMUNIZATIONS No Known Immunizations SOCIAL HISTORY [...] History sepsis Hospitalization History Acute hypoxic resp distress--[facility] 07/28/16 Hospitalization History Denies any past psychiatric hospitalization
--- OUTSIDE RECORDS SUMMARY | 2018-10-07 10:32 | XMS REPORT ---
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 Name Role Phone CARMINA SANDHU Unavailable PROBLEMS Type Condition ICD9-CM Code KMO58-UZ Code Onset Dates Condition Status SNOMED Code Problem Psychophysiological insomnia F51.04 Active 604582622 Problem Eating disorder, unspecified F50.9 Active 11810763 Problem Adjustment disorder with depressed mood F43.21 Active 61472049 Problem COPD exacerbation J44.1 Active 890824870 Problem Insomnia G47.00 Active 762451360 Problem BMI 45.0-49.9, adult Z68.42 Active 928606043 Problem OCD (obsessive compulsive disorder) F42 Active 694858199 Problem Chronic cellulitis L03.90 Active 172669778 Problem Moderate persistent asthma without complication J45.40 Active 145743763 Problem Body mass index (BMI) of 40.0-44.9 in adult Z68.41 Active 102772008 Problem Severe persistent asthma with acute exacerbation J45.51 Active 177534755 Problem Other obesity due to excess calories E66.09 Active 02950707886824 Problem Obesity (BMI 30.0-34.9) E66.9 Active 153410043966167 Problem SVETLANA treated with BiPAP G47.33 Active 09204308 Problem Anxiety F41.9 Active 03063434 Problem Asthma J45.909 Active 129201466 Problem Iron deficiency anemia, unspecified iron deficiency anemia type D50.9 Active 15541385 Problem Asthma exacerbation J45.901 Active 460996275 Problem Reactive depression F32.9 Active 83233006 Problem Seasonal allergic rhinitis due to pollen J30.1 Active 84516972 Problem Other chronic pain G89.29 Active 48784187 Problem Habitual self-excoriation F42.4 Active 859238196 ALLERGIES Substance Reaction Event Type Date Status Morphine Sulfate itching Drug Allergy Aug, Active ENCOUNTERS Encounter Location Date Diagnosis [place] [id number] [place] [address] 65726- 8192 January, Acute pain of left knee M25.562 and BMI 50.0-59.9, adult Z68.43 [place] [address] [address] January, [place] [address] [place] [id number] [place] [address] 69643- 1815 January, COPD exacerbation J44.1 and Severe persistent asthma with acute exacerbation J45.51 [place] [address] [place] [id number] [place] [address] 63354- 4397 January, Anxiety F41.9 and Psychophysiological insomnia F51.04 [place] [address] [place] [id number] [place] [address] 52574- 7023 January, COPD exacerbation J44.1 and Left medial knee pain M25.562 [place] [address] [place] [id number] [place] [address] 40592- 7281 Dec, COPD with exacerbation J44.1 ; BMI 45.0-49.9, adult Z68.42 ; SVETLANA treated with BiPAP G47.33 and Psychophysiological insomnia F51.04 [place] [address] [address] Dec, [place] [address] [place] [id number] [place] [address] 08627- 5525 Dec, Acute pain of left knee M25.562 ; Unspecified fall, initial encounter W19.XXXA ; Unspecified place in unspecified non-institutional (private ) residence as the place of occurrence of the external cause Y92.009 ; BMI 45.0- 49.9, adult Z68.42 and Severe persistent asthma with acute exacerbation J45.51 [place] [id number] [place] [address] 09309- 2762 Dec, Anxiety F41.9 and Psychophysiological insomnia F51.04 [place] [address] [place] [id number] [place] [address] 79786- 7354 Nov, Psychophysiological insomnia F51.04 [facility] [address] 96050- 8861 Oct, [facility] [address] [place] [id number] [place] [address] 91999- 2023 Oct, Anxiety F41.9 [place] [address] 24485- 1900 Oct, [place] [address] [place] [id number] [place] [address] 15786- 7438 Oct, Severe persistent asthma with acute exacerbation J45.51 ; Tobacco abuse Z72.0 and BMI 45.0-49.9, adult Z68.42 [place] [address] 03691- 8318 Oct, Psychophysiological insomnia F51.04 [place] [address] [place] [id number] [place] [address] 35994- 2621 Sep, Anxiety F41.9 [place] [address] 03117- 9014 Sep, Anxiety F41.9 and Habitual self-excoriation F42.4 [place] [address] [place] [id number] [place] [address] 76751- 0016 Sep, Psychophysiological insomnia F51.04 [place] [address] [place] [id number] [place] [address] 83406- 7203 Aug, Anxiety F41.9 [place] [address] [place] [id number] [place] [address] 35355- 0779 Aug, Asthma J45.909 [place] [address] [place] [id number] [place] [address] 94969- 3366 Aug, Anxiety F41.9 [facility] [address] [place] [id number] [place] [address] 95179 -3723 Aug, Acute bronchitis, unspecified organism J20.9 [place] [address] [place] [id number] [place] [address] 07929- 0407 Aug, Psychophysiological insomnia F51.04 [place] [address] [place] [id number] [place] [address] 80105- 3726 Jul, Therapeutic drug monitoring Z51.81 [place] [address] 40614- 5701 Jul, [place] [address] 19946- 6767 Jul, Habitual self-excoriation F42.4 [place] [address] 00883- 4015 Jul, [place] [address] [place] [id number] [place] [address] 58213- 0701 Jul, [place] [address] [place] [id number] [place] [address] 25749- 5232 Jun, SVETLANA treated with BiPAP G47.33 ; Moderate persistent asthma without complication J45.40 ; Anxiety F41.9 ; Other obesity due to excess calories E66.09 ; Body mass index (BMI) of 40.0-44.9 in adult Z68.41 ; Psychophysiological insomnia F51.04 and Encounter for immunization Z23 [place] [address] [place] [id number] [place] [address] 89416- 5137 Jun, [place] [address] [place] [id number] [place] [address] 41952- 8303 Jun, Habitual self-excoriation F42.4 ; Adjustment disorder with depressed mood F43.21 ; Psychophysiological insomnia F51.04 and Eating disorder , unspecified F50.9 [place] [address] [place] [id number] [place] [address] 58940- 2168 Jun, Visit for TB skin test Z11.1 [place] [address] 52107- 9439 Jun, Habitual self-excoriation F42.4 and Psychophysiological insomnia F51.04 [facility] [address] [place] [id number] [place] [address] 55564- 4596 Jun, Asthma J45.909 [facility] [address] [place] [address] 93817- 5228 May, Asthma J45.909 [facility] [address] [place] [id number] [place] [address] 30704- 9573 May, [facility] [address] [place] [id number] [place] [address] 91287- 8458 May, Habitual self-excoriation F42.4 and Psychophysiological insomnia F51.04 [facility] [address] [place] [id number] [place] [address] 73603- 9838 Apr, Habitual self-excoriation F42.4 ; Adjustment disorder with depressed mood F43.21 ; Psychophysiological insomnia F51.04 and Eating disorder , unspecified F50.9 [facility] [address] [place] [id number] [place] [address] 52359- 5805 Apr, [facility] [address] [place] [id number] [place] [address] 50076- 8048 Apr, Habitual self-excoriation F42.4 ; Adjustment disorder with depressed mood F43.21 ; Psychophysiological insomnia F51.04 and Other chcf (current) drug therapy Z79.899 [facility] [address] [place] [id number] [place] [address] 20707- 7856 Mar, [facility] [address] [place] [id number] [place] [address] 84389- 2180 Mar, [facility] [address] [place] [id number] [place] [address] 00394- 6339 Mar, Anxiety F41.9 [facility] [address] [place] [address] 67726- 7209 Feb, Asthma J45.909 [place] [address] [place] [id number] [place] [address] 98433- 1944 Feb, [place] [address] 93281- 9606 Feb, Anxiety F41.9 [place] [address] 62281- 3579 Feb, Asthma exacerbation J45.901 and Seasonal allergic rhinitis due to pollen J30.1 [place] [address] 20389- 0107 January, [place] [address] 56841- 2346 January, Anxiety F41.9 [place] [address] 62391- 0348 Dec, Therapeutic drug monitoring Z51.81 [place] [address] 10609- 9309 Dec, Anxiety F41.9 and Asthma J45.909 [place] [address] 93527- 3402 Nov, Asthma J45.909 [place] [address] [place] [id number] [place] [address] 27476- 0854 Nov, Anxiety F41.9 [place] [address] [place] [id number] [place] [address] 75232- 4458 Oct, Asthma exacerbation J45.901 ; Pain in right knee M25.561 ; Pain in left knee M25.562 and Open wound of eyebrow, left, subsequent encounter S01.102D [place] [address] [place] [id number] [place] [address] 12764- 5880 16 Oct, 2016 [facility] [address] [place] [id number] [place] [address] 65941 -8960 11 Oct, 2016 Other viral agents as the cause of diseases classified elsewhere B97.89 and Acute upper respiratory infection, unspecified J06.9 [place] [address] [place] [id number] [place] [address] 38787- 1456 10 Oct, 2016 [place] [address] [place] [id number] [place] [address] 29761- 9014 08 Oct, 2016 [place] [address] [place] [id number] [place] [address] 02009- 4091 02 Oct, 2016 Anxiety F41.9 [place] [address] [place] [id number] [place] [address] 85528- 4378 Sep, [place] [address] 58137- 5879 Sep, SVETLANA treated with BiPAP G47.33 and Asthma J45.909 [place] [address] [place] [id number] [place] [address] 24899- 3737 Sep, SVETLANA treated with BiPAP G47.33 ; Obesity (BMI 30.0-34.9) E66.9 and Reactive depression F32.9 [place] [address] [place] [id number] [place] [address] 52672- 6078 Sep, Anxiety F41.9 [place] [address] [place] [id number] [place] [address] 31995- 0443 Aug, [place] [address] [place] [id number] [place] [address] 12509- 1120 Aug, Insomnia G47.00 [place] [address] [place] [id number] [place] [address] 73398- 5757 Aug, [place] [address] [place] [id number] [place] [address] 06352- 9429 Aug, SVETLANA treated with BiPAP G47.33 and On supplemental oxygen therapy Z99.81 [place] [address] [place] [id number] [place] [address] 95106- 2881 Jul, On supplemental oxygen therapy Z99.81 ; Obesity (BMI 30.0- 34.9) E66.9 and SVETLANA treated with BiPAP G47.33 [facility] [address] [place] [id number] [place] [address] 33194- 2980 17 Jul, 2016 Mucus plugging of bronchi J98.09 ; On supplemental oxygen therapy Z99.81 ; Acute midline thoracic back pain M54.6 and SVETLANA treated with BiPAP G47.33 [facility] [address] [place] [id number] [place] [address] 34123- 5280 16 Jul, 2016 [facility] [address] [place] [id number] [place] [address] 08150- 5756 Jul, [facility] [address] 56633- 2881 Jul, [facility] [address] [place] [id number] [place] [address] 55148- 2397 May, [facility] [address] 13223- 1388 May, [facility] [address] [place] [id number] [place] [address] 64225- 6770 Apr, [facility] [address] 88101- 3915 Apr, [facility] [address] [place] [id number] [place] [address] 31397- 0269 Apr, Insomnia G47.00 ; Anemia D64.9 ; OCD (obsessive compulsive disorder) F42 ; Anxiety F41.9 ; Asthma J45.909 and Obesity (BMI 30.0-34.9) E66.9 [facility] [address] [place] [id number] [place] [address] 29975- 7750 Feb, [facility] [address] [place] [id number] [place] [address] 80639- 1549 Feb, Insomnia G47.00 [facility] [address] [place] [id number] [place] [address] 55162- 1801 Nov, [facility] [address] [address]- 4024 15 Nov, 2015 [facility] [address] [place] [id number] [place] [address] 55420- 2870 Nov, [facility] [address] [address]- 3392 Nov, OCD (obsessive compulsive disorder) F42 ; Anxiety F41.9 ; Insomnia G47.00 ; Anemia D64.9 and Asthma J45.909 [facility] [address] [place] [address] 99100- 5319 Nov, [facility] [address] [place] [id number] [place] [address] 06151- 7331 Oct, [facility] [address] [place] [id number] [place] [address] 20322- 7733 Aug, OCD (obsessive compulsive disorder) F42 ; Chronic cellulitis L03.90 ; Anxiety F41.9 ; Insomnia G47.00 ; Anemia D64.9 and Asthma J45.909 [facility] [address] [address]- 8504 Aug, [facility] [address] [place] [id number] [place] [address] 56475- 4759 Jul, [facility] [address] [address]- 1727 Jul, OCD (obsessive compulsive disorder) F42 ; Chronic cellulitis L03.90 ; Anxiety F41.9 ; Insomnia G47.00 and Anemia D64.9 [facility] [address] [address]- 1333 Dec, [facility] [address] [place] [id number] [place] [address] 25405- 7266 Dec, [facility] [address] [address]- 1829 Aug, [facility] [address] [place] [id number] [place] [address]- 6685 Aug, [facility] [place] [facility] [address] [id number] [place] [address]- 9994 Aug, [facility] [place] [facility] [address] [id number] [place] [address]- 9688 Aug, [facility] [place] [facility] [address] [id number] [place] [address]- 8755 Aug, [facility] [place] [facility] [address] [id number] [place] [address]- 6988 Aug, [facility] [place] [facility] [address] [id number] [place] [address]- 5994 Aug, [facility] [place] [facility] [address] [id number] [place] [address]- 6441 Jul, [facility] [place] [facility] [address] [id number] [place] [address]- 5448 Jul, [facility] [place] [facility] [address] [id number] [place] [address]- 1337 Jul, [facility] [place] [facility] [address] [id number] [place] [address]- 1795 Jul, [facility] [place] [facility] [address] [facility] [id number] [place] [address]- 9704 Apr, [facility] [place] [facility] [address] [id number] [place] [address]- 7354 Apr, [facility] [place] [facility] [address] [id number] [place] [address]- 8295 Feb, [facility] [place] [facility] [address] [id number] [place] [address]- 1007 Feb, [facility] [place] [facility] [address] [id number] [place] [address]- 2076 Feb, [facility] [place] [facility] [address] [id number] [place] [address]- 9423 Feb, [facility] [place] [facility] [address] [id number] [place] [address]- 8739 January, [facility] [place] [facility] [address] [id number] [place] [address]- 8417 January, [facility] [place] [facility] [address] [id number] [place] [address]- 7728 January, [facility] [place] [facility] [address] [id number] [place] [address]- 5098 Dec, [facility] [place] [facility] [address] [id number] [place] [address]- 5693 Dec, [facility] [place] [facility] [address] [id number] [place] [address]- 0010 Dec, [facility] [place] [facility] [address] [id number] [place] [address]- 6326 Dec, [facility] [place] [facility] [address] [id number] [place] [address]- 7157 Nov, [facility] [place] [facility] [address] [id number] [place] [address]- 7829 Nov, [facility] [place] [facility] [address] [id number] [place] [address]- 2418 Nov, [facility] [place] [facility] [address] [id number] [place] [address]- 8700 Nov, [facility] [place] [facility] [address] [id number] [place] [address]- 9706 Nov, [facility] [place] [facility] [address] [id number] [place] [address]- 1325 Nov, [facility] [place] [facility] [address] [id number] [place] [address]- 3774 Oct, [facility] [place] [facility] [address] [id number] [place] [address]- 6026 Oct, [facility] [place] [facility] [address] [id number] [place] [address]- 7765 Oct, [facility] [place] [facility] [address] [id number] [place] [address]- 2846 Oct, [facility] [place] [facility] [address] [id number] [place] [address]- 5706 Oct, [facility] [place] [facility] [address] [id number] [place] [address]- 4516 Oct, [facility] [place] [facility] [address] [id number] [place] [address]- 0701 Oct, [facility] [place] [facility] [address] [id number] [place] [address]- 6937 Oct, [facility] [place] [facility] [address] [id number] [place] [address]- 3698 Oct, [facility] [place] [facility] [address] [facility] [id number] [place] [address]- 6691 Oct, [facility] [place] [facility] [address] [id number] [place] [address]- 1997 Oct, [facility] [place] [facility] [address] [facility] [id number] [place] [address]- 3535 Oct, [facility] [place] [facility] [address] [facility] [id number] [place] [address]- 9465 Sep, [facility] [place] [facility] [address] [id number] [place] [address]- 9512 Sep, [facility] [place] [facility] [address] [id number] [place] [address]- 6896 Sep, [facility] [place] [facility] [address] [id number] [place] [address]- 1311 Sep, [facility] [place] [facility] [address] [id number] [place] [address]- 8430 Aug, [facility] [place] [facility] [address] [id number] [place] [address]- 4936 Aug, [facility] [address] [facility] [id number] [address]- 6300 Aug, [facility] [address] [facility] [id number] [address]- 8234 Aug, [facility] [address] [facility] [id number] [address]- 0687 Aug, [facility] [address] [facility] [id number] [address]- 8400 Aug, [facility] [address] [facility] [id number] [address]- 8562 Aug, IMMUNIZATIONS No Known Immunizations SOCIAL HISTORY Never Assessed REASON FOR VISIT cough, chest congestion. hx of pneumonia and asthma. has pain in her right lung. [email or web address] PLAN OF CARE Activity Details Follow Up prn Reason: VITAL SIGNS Height 65 in 2017-08-21 Weight 270.4 lbs 2017-08-21 Temperature 98.0 degrees Fahrenheit 2017-08-21 Heart Rate 84 bpm 2017-08-21 Respiratory Rate 20 2017-08-21 BMI 44.99 kg/m2 2017-08-21 Blood pressure systolic 124 mmHg 2017-08-21 Blood pressure diastolic 76 mmHg 2017-08-21 MEDICATIONS Medication Instructions Dosage Frequency Start Date End Date Duration Status PredniSONE 20 MG Orally Once a day 2 tablet 24h Aug, Aug, 5 days Active Ventolin HFA 90 MCG/ACT Inhalation every 4 hrs 2 puffs as needed 4h Active Symbicort 160-4.5 mcg/act Inhalation Twice a day 2 puffs 12h Oct, Active Zolpidem Tartrate 10 mg TAKE ONE TABLET BY MOUTH ONCE DAILY AT BEDTIME NEEDED 30 Active Ipratropium-Albuterol 20-100 MCG/ACT Inhalation Four times a day 1 puff 6h 14 Nov, 2015 Active Hydrocodone-Acetaminophen 5-325 MG Orally 2 times a day as needed 1 tablet Jul, Active Ativan 1 MG Orally twice a day as needed 1 tablet 30 days Active Zolpidem Tartrate 10 mg Orally at bedtime as needed 1 tablet 30 days Active Celexa 20 mg Orally BID 1 tab in AM and 1/2 tab in PM 12h 30 days Active ProAir HFA 108 (90 Base) MCG/ACT Inhalation every 6 hrs 2 puffs as needed 6h Jun, Active RESULTS No Results PROCEDURES No Known procedures INSTRUCTIONS MEDICATIONS ADMINISTERED No Known Medications MEDICAL (GENERAL) HISTORY Type Description Date Medical History asthma Medical History anxiety Medical History gastric bypass Medical History anemia Medical History sleep apnea treated with biPAP Surgical History gastric bypass 2002 Hospitalization History surgery Hospitalization History anemia Hospitalization History sepsis Hospitalization History Acute hypoxic resp distress--[facility] 07/28/16 Hospitalization History Denies any past psychiatric hospitalization
--- OUTSIDE RECORDS SUMMARY | 2018-10-07 10:32 | XMS REPORT ---
Author Author RAMONE CELAYA Organization [facility] Address [address] [place] [address] Care Team Providers Care Bridal Gown Fitter Name Role Phone BELIARAMONE Unavailable PROBLEMS Type Condition ICD9-CM Code AQV62-LI Code Onset Dates Condition Status SNOMED Code Problem Habitual self-excoriation F42.4 Active 110425992 Problem Adjustment disorder with depressed mood F43.21 Active 84461031 Problem Psychophysiological insomnia F51.04 Active 810239284 Problem BMI 45.0-49.9, adult Z68.42 Active 427563117 Problem Chronic cellulitis L03.90 Active 324604316 Problem Severe persistent asthma with acute exacerbation J45.51 Active 782252699 Problem OCD (obsessive compulsive disorder) F42 Active 310685439 Problem Other obesity due to excess calories E66.09 Active 32061188392932 Problem Eating disorder, unspecified F50.9 Active 33650348 Problem Moderate persistent asthma without complication J45.40 Active 294434057 Problem Body mass index (BMI) of 40.0-44.9 in adult Z68.41 Active 060041213 Problem Obesity (BMI 30.0-34.9) E66.9 Active 106130388279842 Problem Asthma J45.909 Active 803982805 Problem Insomnia G47.00 Active 263532631 Problem Anxiety F41.9 Active 96780046 Problem Iron deficiency anemia, unspecified iron deficiency anemia type D50.9 Active 01474679 Problem Other chronic pain G89.29 Active 33480572 Problem SVETLANA treated with BiPAP G47.33 Active 83138484 Problem Asthma exacerbation J45.901 Active 199268852 Problem Reactive depression F32.9 Active 84091562 Problem Seasonal allergic rhinitis due to pollen J30.1 Active 38325231 ALLERGIES No Information ENCOUNTERS Encounter Location Date Diagnosis [facility] [address] [facility] [id number] [address] Feb, [place] [address] [address] Dec, Acute pain of left knee M25.562 ; Unspecified fall, initial encounter W19.XXXA ; Unspecified place in unspecified non-institutional (private ) residence as the place of occurrence of the external cause Y92.009 ; BMI 45.0- 49.9, adult Z68.42 and Severe persistent asthma with acute exacerbation J45.51 [place] [address] [address] 6[address] Dec, Anxiety F41.9 and Psychophysiological insomnia F51.04 [place] [address] 84[address]- 4857 Nov, Psychophysiological insomnia F51.04 [place] [address] [address]- 6928 Oct, [place] [address] [address]- 3943 Oct, Anxiety F41.9 [place] [address] 280[address]- 3425 Oct, [place] [address] 33[address]- 7905 Oct, Severe persistent asthma with acute exacerbation J45.51 ; Tobacco abuse Z72.0 and BMI 45.0-49.9, adult Z68.42 [place] [address] [place] [id number] [place] [address] 91930- 3661 Oct, Psychophysiological insomnia F51.04 [place] [address] [address]- 2691 Sep, Anxiety F41.9 [place] [address] 06163- 2505 Sep, Anxiety F41.9 and Habitual self-excoriation F42.4 [place] [address] [place] [id number] [place] [address] 91617- 2791 Sep, Psychophysiological insomnia F51.04 [place] [address] 87297- 0370 Aug, Anxiety F41.9 [facility] [address] [address]- [address] Aug, Asthma J45.909 [place] [address] 52313- 4609 Aug, Anxiety F41.9 [facility] [address] [address] Aug, Acute bronchitis, unspecified organism J20.9 [place] [address] 20586- 7156 Aug, Psychophysiological insomnia F51.04 [place] [address] 24437- 6165 Jul, Therapeutic drug monitoring Z51.81 [place] [address] 968[address]- 3768 Jul, [place] [address] 98784- 5348 Jul, Habitual self-excoriation F42.4 [place] [address] 83645- 5670 08 Jul, 2017 [place] [address] 29606- 7886 07 Jul, 2017 [place] [address] 44024- 5417 Jun, SVETLANA treated with BiPAP G47.33 ; Moderate persistent asthma without complication J45.40 ; Anxiety F41.9 ; Other obesity due to excess calories E66.09 ; Body mass index (BMI) of 40.0-44.9 in adult Z68.41 ; Psychophysiological insomnia F51.04 and Encounter for immunization Z23 [place] [address] [place] [id number] [place] [address] 14990- 6458 Jun, [place] [address] 34217- 0638 Jun, Habitual self-excoriation F42.4 ; Adjustment disorder with depressed mood F43.21 ; Psychophysiological insomnia F51.04 and Eating disorder , unspecified F50.9 [place] [address] [place] [id number] [place] [address] 41702- 1744 Jun, Visit for TB skin test Z11.1 [place] [address] 87301- 1297 Jun, Habitual self-excoriation F42.4 and Psychophysiological insomnia F51.04 [place] [address] [place] [id number] [place] [address] 62021- 3187 Jun, Asthma J45.909 [place] [address] [place] [id number] [place] [address] 80844- 6962 May, Asthma J45.909 [place] [address] [place] [id number] [place] [address] 58439- 0802 May, [place] [address] [place] [id number] [place] [address] 52985- 7138 May, Habitual self-excoriation F42.4 and Psychophysiological insomnia F51.04 [place] [address] [place] [id number] [place] [address] 85837- 9886 Apr, Habitual self-excoriation F42.4 ; Adjustment disorder with depressed mood F43.21 ; Psychophysiological insomnia F51.04 and Eating disorder , unspecified F50.9 [place] [address] [place] [id number] [place] [address] 13982- 0656 Apr, [place] [address] [place] [id number] [place] [address] 30875- 9401 Apr, Habitual self-excoriation F42.4 ; Adjustment disorder with depressed mood F43.21 ; Psychophysiological insomnia F51.04 and Other prison (current) drug therapy Z79.899 [place] [address] [place] [id number] [place] [address] 62288- 2408 Mar, [facility] [address] [place] [id number] [place] [address] 46546- 7420 Mar, [place] [address] 59525- 4489 Mar, Anxiety F41.9 [place] [address] [place] [id number] [place] [address] 11068- 6216 Feb, Asthma J45.909 [place] [address] 06852- 8912 Feb, [place] [address] 63830- 5761 Feb, Anxiety F41.9 [place] [address] [place] [id number] [place] [address] 35388- 2744 Feb, Asthma exacerbation J45.901 and Seasonal allergic rhinitis due to pollen J30.1 [place] [address] [place] [id number] [place] [address] 10794- 0563 January, [place] [address] [place] [id number] [place] [address] 46262- 8899 January, Anxiety F41.9 [place] [address] [place] [id number] [place] [address] 17900- 8158 Dec, Therapeutic drug monitoring Z51.81 [place] [address] [place] [id number] [place] [address] 69071- 7654 Dec, Anxiety F41.9 and Asthma J45.909 [place] [address] [place] [id number] [place] [address] 93909- 6324 Nov, Asthma J45.909 [place] [address] 00791- 3475 Nov, Anxiety F41.9 [place] [address] [place] [id number] [place] [address] 54157- 5754 Oct, Asthma exacerbation J45.901 ; Pain in right knee M25.561 ; Pain in left knee M25.562 and Open wound of eyebrow, left, subsequent encounter S01.102D [place] [address] 14210- 8290 16 Oct, 2016 [facility] [address] [place] [id number] [place] [address] 84364 -1549 Oct, Other viral agents as the cause of diseases classified elsewhere B97.89 and Acute upper respiratory infection, unspecified J06.9 [place] [address] [place] [id number] [place] [address] 58602- 6432 Oct, [place] [address] 28872- 8776 Oct, [place] [address] [place] [id number] [place] [address] 60293- 5288 Oct, Anxiety F41.9 [place] [address] [place] [id number] [place] [address] 78939- 3862 Sep, [place] [address] [place] [id number] [place] [address] 59532- 3620 Sep, SVETLANA treated with BiPAP G47.33 and Asthma J45.909 [place] [address] [place] [id number] [place] [address] 07820- 2106 Sep, SVETLNAA treated with BiPAP G47.33 ; Obesity (BMI 30.0-34.9) E66.9 and Reactive depression F32.9 [place] [address] [place] [id number] [place] [address] 00090- 4277 Sep, Anxiety F41.9 [place] [address] 49849- 1270 Aug, [facility] [address] [address] 7960 Aug, Insomnia G47.00 [facility] [address] [place] [id number] [place] [address] 67276- 9423 Aug, [facility] [address] [place] [id number] [place] [address] 68130- 5867 Aug, SVETLANA treated with BiPAP G47.33 and On supplemental oxygen therapy Z99.81 [facility] [address] [place] [id number] [place] [address] 88420- 5392 Jul, On supplemental oxygen therapy Z99.81 ; Obesity (BMI 30.0- 34.9) E66.9 and SVETLANA treated with BiPAP G47.33 [facility] [address] [place] [id number] [place] [address] 15967- 5733 17 Jul, 2016 Mucus plugging of bronchi J98.09 ; On supplemental oxygen therapy Z99.81 ; Acute midline thoracic back pain M54.6 and SVETLANA treated with BiPAP G47.33 [facility] [address] [place] [id number] [place] [address] 17907- 2316 16 Jul, 2016 [facility] [address] [place] [id number] [place] [address] 33049- 5031 15 Jul, 2016 [facility] [address] [place] [id number] [address]- 5313 Jul, [facility] [address] [place] [id number] [place] [address] 91894- 1735 May, [facility] [address] [place] [id number] [place] [address] 52541- 9960 May, [facility] [address] [place] [id number] [place] [address] 99475- 6223 Apr, [facility] [address] [place] [id number] [place] [address] 67803- 4145 Apr, [facility] [address] [place] [id number] [place] [address] 92598- 5904 Apr, Insomnia G47.00 ; Anemia D64.9 ; OCD (obsessive compulsive disorder) F42 ; Anxiety F41.9 ; Asthma J45.909 and Obesity (BMI 30.0-34.9) E66.9 [place] [address] [place] [id number] [place] [address] 85146- 8398 Feb, [place] [address] 88253- 0624 Feb, Insomnia G47.00 [place] [address] 72234- 4150 Nov, [place] [address] 29658- 5756 Nov, [place] [address] [place] [id number] [place] [address] 69924- 9603 Nov, [place] [address] 56231- 5361 Nov, OCD (obsessive compulsive disorder) F42 ; Anxiety F41.9 ; Insomnia G47.00 ; Anemia D64.9 and Asthma J45.909 [place] [address] [place] [id number] [place] [address] 65573- 1584 Nov, [place] [address] [place] [id number] [place] [address] 51557- 0953 Oct, [place] [address] [place] [id number] [place] [address] 21606- 2600 Aug, OCD (obsessive compulsive disorder) F42 ; Chronic cellulitis L03.90 ; Anxiety F41.9 ; Insomnia G47.00 ; Anemia D64.9 and Asthma J45.909 [place] [address] [place] [id number] [place] [address] 38351- 6694 Aug, [place] [address] [place] [id number] [place] [address] 57169- 5991 Jul, [place] [address] [address]- 9283 Jul, OCD (obsessive compulsive disorder) F42 ; Chronic cellulitis L03.90 ; Anxiety F41.9 ; Insomnia G47.00 and Anemia D64.9 [facility] [address] [place] [address]- 4123 14 Dec, 2014 [facility] [address] [place] [id number] [place] [address] 26390- 6084 Dec, [facility] [address] [place] [id number] [place] [address] 68347- 1402 Aug, [facility] [address] [place] [id number] [place] [address], [place] [address]- 3554 Aug, [facility] [address] [place] [id number] [place] [address], [place] [address]- 0030 Aug, [facility] [address] [place] [id number] [place] [address] 22056- 9910 Aug, [facility] [address] [place] [address] 51178- 7481 Aug, [facility] [address] [place] [id number] [place] [address] 46301- 3807 Aug, [facility] [address] [address]- 0062 Aug, [facility] [address] [place] [address] 49934- 5512 Jul, [facility] [address] [address]- 0524 Jul, [facility] [address] [place] [id number] [place] [address] 20603- 8705 Jul, [facility] [address] [address]- 3138 Jul, [facility] [address] [place] [id number] [place] [address] 73840- 0141 Apr, [facility] [place] [facility] [address] [id number] [place] [address]- 6671 Apr, [facility] [place] [facility] [address] [id number] [place] [address]- 8563 Feb, [facility] [place] [facility] [address] [id number] [place] [address]- 3205 Feb, [facility] [place] [facility] [address] [id number] [place] [address]- 6717 Feb, [facility] [place] [facility] [address] [id number] [place] [address]- 4400 Feb, [facility] [place] [facility] [address] [id number] [place] [address]- 9791 January, [facility] [place] [facility] [address] [id number] [place] [address]- 9651 January, [facility] [place] [facility] [address] [id number] [place] [address]- 3664 January, [facility] [place] [facility] [address] [id number] [place] [address]- 7775 Dec, [facility] [place] [facility] [address] [id number] [place] [address]- 7883 Dec, [facility] [place] [facility] [address] [id number] [place] [address]- 9236 Dec, [facility] [place] [facility] [address] [id number] [place] [address]- 4181 Dec, [facility] [place] [facility] [address] [id number] [place] [address]- 1880 Nov, [facility] [place] [facility] [address] [id number] [place] [address]- 9470 Nov, [facility] [place] [facility] [address] [id number] [place] [address]- 8290 Nov, [facility] [place] [facility] [address] [id number] [place] [address]- 9068 Nov, [facility] [place] [facility] [address] [id number] [place] [address]- 2733 Nov, [facility] [place] [facility] [address] [id number] [place] [address]- 5567 Nov, [facility] [place] [facility] [address] [id number] [place] [address]- 6825 Oct, [facility] [place] [facility] [address] [id number] [place] [address]- 8616 Oct, [facility] [place] [facility] [address] [id number] [place] [address]- 6671 Oct, [facility] [place] [facility] [address] [facility] [id number] [place] [address]- 0507 Oct, [facility] [place] [facility] [address] [id number] [place] [address]- 5274 Oct, [facility] [place] [facility] [address] [id number] [place] [address]- 5768 Oct, [facility] [place] [facility] [address] [facility] [id number] [place] [address]- 5559 Oct, [facility] [place] [facility] [address] [facility] [id number] [place] [address]- 9561 Oct, [facility] [place] [facility] [address] [facility] [id number] [address]- 4357 Oct, [facility] [place] [facility] [address] [facility] [id number] [place] [address]- 2995 Oct, [facility] [place] [facility] [address] [id number] [place] [address]- 4052 Oct, [facility] [place] [facility] [address] [facility] [id number] [place] [address]- 8453 Oct, [facility] [place] [facility] [address] [facility] [id number] [address]- 8241 Sep, [facility] [address] [place] [id number] [address]- 5286 Sep, [facility] [address], [place] [address]- 8718 Sep, [facility] [address], [place] [address]- 9970 Sep, [facility] [address] [address]- 6582 Aug, [facility] [address] [address]- 6864 Aug, [facility] [address], [place] [address]- 3143 Aug, [facility] [address] [address]- 8450 Aug, [facility] [address], [place] [address]- 6875 Aug, [facility] [address] [place] [id number], [place] [address]- 2712 Aug, [facility] [address] [place] [id number] [address]- 6793 Aug, IMMUNIZATIONS No Known Immunizations SOCIAL HISTORY Never Assessed [facility] PLAN OF CARE VITAL SIGNS MEDICATIONS Medication Instructions Dosage Frequency Start Date End Date Duration Status Zolpidem Tartrate 10 mg Orally at bedtime as needed 1 tablet 30 days Active Ativan 1 MG Orally [...] History sepsis Hospitalization History Acute hypoxic resp distress--[facility] 07/28/16 Hospitalization History Denies any past psychiatric hospitalization
--- OUTSIDE RECORDS SUMMARY | 2018-10-07 10:33 | XMS REPORT ---
Author Author BRICE RAMIREZ Organization [facility] Address [address] [place] [address] Care Team Providers Care Physician/Ophthalmologist Name Role Phone BRICE RAMIREZ Unavailable PROBLEMS Type Condition ICD9-CM Code QZS99-YI Code Onset Dates Condition Status SNOMED Code Problem Habitual self-excoriation F42.4 Active 376461253 Problem Adjustment disorder with depressed mood F43.21 Active 10512445 Problem Psychophysiological insomnia F51.04 Active 098942850 Problem BMI 45.0-49.9, adult Z68.42 Active 318897780 Problem Chronic cellulitis L03.90 Active 547580425 Problem Severe persistent asthma with acute exacerbation J45.51 Active 854850055 Problem OCD (obsessive compulsive disorder) F42 Active 563336355 Problem Other obesity due to excess calories E66.09 Active 65535523243084 Problem Eating disorder, unspecified F50.9 Active 16601917 Problem Moderate persistent asthma without complication J45.40 Active 996693834 Problem Body mass index (BMI) of 40.0-44.9 in adult Z68.41 Active 125789428 Problem Obesity (BMI 30.0-34.9) E66.9 Active 850582980640695 Problem Asthma J45.909 Active 013663358 Problem Insomnia G47.00 Active 834302191 Problem Anxiety F41.9 Active 25169214 Problem Iron deficiency anemia, unspecified iron deficiency anemia type D50.9 Active 39480384 Problem Other chronic pain G89.29 Active 78856219 Problem SVETLANA treated with BiPAP G47.33 Active 67043253 Problem Asthma exacerbation J45.901 Active 079693259 Problem Reactive depression F32.9 Active 46937222 Problem Seasonal allergic rhinitis due to pollen J30.1 Active 87326084 ALLERGIES No Information ENCOUNTERS Encounter Location Date Diagnosis [facility] [address] [facility] [id number] [address] Dec, [facility] [id number] [address] 37546- 6336 Nov, Psychophysiological insomnia F51.04 [facility] [id number] [address] 13393- 6661 Oct, [facility] [id number] [address] 69558- 3918 Oct, Anxiety F41.9 [facility] [id number] [address] 63337- 6387 Oct, [facility] [id number] [address] 22513- 7741 Oct, Severe persistent asthma with acute exacerbation J45.51 ; Tobacco abuse Z72.0 and BMI 45.0-49.9, adult Z68.42 [facility] [id number] [address] 71252- 0332 Oct, Psychophysiological insomnia F51.04 [facility] [id number] [address] 66522- 1098 Sep, Anxiety F41.9 [facility] [id number] [address] 46210- 7896 Sep, Anxiety F41.9 and Habitual self-excoriation F42.4 [facility] [id number] [address] 35450- 2209 Sep, Psychophysiological insomnia F51.04 [facility] [id number] [address] 94250- 9427 Aug, Anxiety F41.9 [facility] [id number] [address] 55137- 6119 Aug, Asthma J45.909 [facility] [id number] [place] [address] 03277- 1251 Aug, Anxiety F41.9 [facility] [id number] [address] 66010 -7078 Aug, Acute bronchitis, unspecified organism J20.9 [facility] [address] 49820- 5316 Aug, Psychophysiological insomnia F51.04 [facility] [id number] [address] 51668- 7887 Jul, Therapeutic drug monitoring Z51.81 [facility] [address] 11499- 2913 Jul, [facility] [address] 00369- 3124 Jul, Habitual self-excoriation F42.4 [facility] [address] 72346- 0418 08 Jul, 2017 [facility] [address] 95228- 3602 Jul, [facility] [id number] [address] 41204- 4174 Jun, SVETLANA treated with BiPAP G47.33 ; Moderate persistent asthma without complication J45.40 ; Anxiety F41.9 ; Other obesity due to excess calories E66.09 ; Body mass index (BMI) of 40.0-44.9 in adult Z68.41 ; Psychophysiological insomnia F51.04 and Encounter for immunization Z23 [facility] [id number] [address] 26120- 1103 Jun, [facility] [id number] [address] 85845- 1276 Jun, Habitual self-excoriation F42.4 ; Adjustment disorder with depressed mood F43.21 ; Psychophysiological insomnia F51.04 and Eating disorder , unspecified F50.9 [facility] [id number] [address] 34136- 6668 Jun, Visit for TB skin test Z11.1 [facility] [address] [address] 6155 Jun, Habitual self-excoriation F42.4 and Psychophysiological insomnia F51.04 [facility] [address] [address] 30730- 0923 Jun, Asthma J45.909 [facility] [address] [address] 78105- 6185 May, Asthma J45.909 [facility] [id number] [place] [address] 49107- 3502 May, [facility] [id number] [address] 65776- 7431 May, Habitual self-excoriation F42.4 and Psychophysiological insomnia F51.04 [facility] [address] [address] 95476- 1664 Apr, Habitual self-excoriation F42.4 ; Adjustment disorder with depressed mood F43.21 ; Psychophysiological insomnia F51.04 and Eating disorder , unspecified F50.9 [facility] [id number] [address] 87126- 9185 Apr, [facility] [id number] [address] 18741- 1294 Apr, Habitual self-excoriation F42.4 ; Adjustment disorder with depressed mood F43.21 ; Psychophysiological insomnia F51.04 and Other correction (current) drug therapy Z79.899 [facility] [address] [place] [address] 04518- 4913 Mar, [facility] [id number] [place] [address] 45805- 5065 Mar, [facility] [address] [address] 06442- 1789 Mar, Anxiety F41.9 [facility] [id number] [address] 67517- 2200 Feb, Asthma J45.909 [facility] [id number] [address] 84117- 3420 Feb, [place] [address] 50798- 4376 Feb, Anxiety F41.9 [facility] [address] 83496- 0191 Feb, Asthma exacerbation J45.901 and Seasonal allergic rhinitis due to pollen J30.1 [place] [place] [address] 34447- 5699 January, [facility] [address] 46463- 5713 January, Anxiety F41.9 [facility] [address] 25522- 3759 Dec, Therapeutic drug monitoring Z51.81 [facility] [address] 81843- 1063 Dec, Anxiety F41.9 and Asthma J45.909 [facility] [address] 89645- 9879 Nov, Asthma J45.909 [facility] [id number] [address] 60686- 1836 Nov, Anxiety F41.9 [facility] [address] 21340- 8958 Oct, Asthma exacerbation J45.901 ; Pain in right knee M25.561 ; Pain in left knee M25.562 and Open wound of eyebrow, left, subsequent encounter S01.102D [facility] [id number] [place] [address] 69071- 4249 16 Oct, 2016 [facility] [id number] [address] 91631 -0183 Oct, Other viral agents as the cause of diseases classified elsewhere B97.89 and Acute upper respiratory infection, unspecified J06.9 [facility] [place] [address] 57272- 0874 10 Oct, 2016 [facility] [id number] [address] 08807- 5725 Oct, [facility] [address] 40105- 3408 Oct, Anxiety F41.9 [place] [place] [address] 99514- 0990 Sep, [place] [address] 80838- 7565 Sep, SVETLANA treated with BiPAP G47.33 and Asthma J45.909 [facility] [address] 54090- 6423 Sep, SVETLANA treated with BiPAP G47.33 ; Obesity (BMI 30.0-34.9) E66.9 and Reactive depression F32.9 [facility] [address] 03503- 0913 Sep, Anxiety F41.9 [facility] [id number] [address] 48049- 7372 Aug, [facility] [id number] [address] 08349- 6276 Aug, Insomnia G47.00 [facility] [id number] [address] 06356- 9588 Aug, [place] [address] 44902- 9993 Aug, SVETLANA treated with BiPAP G47.33 and On supplemental oxygen therapy Z99.81 [place] [address] 44248- 8661 Jul, On supplemental oxygen therapy Z99.81 ; Obesity (BMI 30.0- 34.9) E66.9 and SVETLANA treated with BiPAP G47.33 [facility] [id number] [place] [address] 79148- 3461 Jul, 2016 Mucus plugging of bronchi J98.09 ; On supplemental oxygen therapy Z99.81 ; Acute midline thoracic back pain M54.6 and SVETLANA treated with BiPAP G47.33 [facility] [address] 26711- 0890 Jul, [facility] [id number] [address] 39258- 5627 Jul, [facility] [address] 06851- 0336 Jul, [facility] [address] 15243- 4478 May, [facility] [id number] [address] 19697- 7118 May, [facility] [id number] [address] 57355- 9201 Apr, [facility] [id number] [address] 95762- 5981 Apr, [facility] [id number] [address] 34653- 0015 Apr, Insomnia G47.00 ; Anemia D64.9 ; OCD (obsessive compulsive disorder) F42 ; Anxiety F41.9 ; Asthma J45.909 and Obesity (BMI 30.0-34.9) E66.9 [facility] [id number] [address] 14543- 3341 Feb, [facility] [id number] [address] 04848- 6957 Feb, Insomnia G47.00 [facility] [address] 13291- 8541 17 Nov, 2015 [facility] [address] [address]- 4673 15 Nov, 2015 [facility] [id number] [address] 26756- 4989 15 Nov, 2015 [facility] [address] [place] [address] 64494- 2561 14 Nov, 2015 OCD (obsessive compulsive disorder) F42 ; Anxiety F41.9 ; Insomnia G47.00 ; Anemia D64.9 and Asthma J45.909 [facility] [id number] [address] 83291- 9101 Nov, [facility] [id number] [address] 82316- 3715 Oct, [facility] [id number] [address] 53535- 8326 Aug, OCD (obsessive compulsive disorder) F42 ; Chronic cellulitis L03.90 ; Anxiety F41.9 ; Insomnia G47.00 ; Anemia D64.9 and Asthma J45.909 [facility] [id number] [address] 72879- 1393 Aug, [facility] [id number] [address] 46626- 0559 Jul, [facility] [id number] [address] 54077- 9492 Jul, OCD (obsessive compulsive disorder) F42 ; Chronic cellulitis L03.90 ; Anxiety F41.9 ; Insomnia G47.00 and Anemia D64.9 [facility] [id number] [address] 25140- 1747 Dec, [facility] [id number] [address] 97201- 7410 Dec, [facility] [id number] [address] 38376- 2644 Aug, [facility] [place] [facility] [address] [id number] [place] [address]- 8191 Aug, [facility] [place] [facility] [address] [id number] [place] [address]- 9277 Aug, [facility] [place] [facility] [address] [id number] [place] [address]- 1140 Aug, [facility] [place] [facility] [address] [id number] [place] [address]- 0521 Aug, [facility] [place] [facility] [address] [id number] [place] [address]- 7661 Aug, [facility] [place] [facility] [address] [id number] [place] [address]- 7499 Aug, [facility] [place] [facility] [address] [id number] [place] [address]- 7174 Jul, [facility] [place] [facility] [address] [id number] [place] [address]- 8068 Jul, [facility] [place] [facility] [address] [id number] [place] [address]- 0585 Jul, [facility] [place] [facility] [address] [id number] [place] [address]- 4181 Jul, [facility] [place] [facility] [address] [id number] [place] [address]- 3015 Apr, [facility] [place] [facility] [address] [id number] [place] [address]- 6832 Apr, [facility] [place] [facility] [address] [id number] [place] [address]- 9974 Feb, [facility] [place] [facility] [address] [id number] [place] [address]- 1675 Feb, [facility] [place] [facility] [address] [id number] [place] [address]- 8855 Feb, [facility] [place] [facility] [address] [id number] [address]- 9337 Feb, [facility] [place] [facility] [address] [id number] [place] [address]- 6653 January, [facility] [place] [facility] [address] [id number] [place] [address]- 2338 January, [facility] [place] [facility] [address] [id number] [place] [address]- 8601 January, [facility] [place] [facility] [address] [id number] [place] [address]- 3043 Dec, [facility] [place] [facility] [address] [id number] [place] [address]- 9234 Dec, [facility] [place] [facility] [address] [id number] [place] [address]- 6712 Dec, [facility] [place] [facility] [address] [id number] [place] [address]- 7073 Dec, [facility] [place] [facility] [address] [id number] [place] [address]- 5788 Nov, [facility] [place] [facility] [address] [id number] [place] [address]- 8921 Nov, [facility] [place] [facility] [address] [id number] [place] [address]- 9128 Nov, [facility] [place] [facility] [address] [id number] [place] [address]- 5763 Nov, [facility] [place] [facility] [address] [id number] [place] [address]- 9840 Nov, [facility] [place] [facility] [address] [id number] [place] [address]- 0849 Nov, [facility] [place] [facility] [address] [id number] [place] [address]- 6956 Oct, [facility] [place] [facility] [address] [id number] [place] [address]- 3761 Oct, [facility] [place] [facility] [address] [id number] [place] [address]- 2751 Oct, [facility] [place] [facility] [address] [id number] [place] [address]- 7542 Oct, [facility] [place] [facility] [address] [id number] [place] [address]- 4606 Oct, [facility] [place] [facility] [address] [id number] [place] [address]- 1577 Oct, [facility] [place] [facility] [address] [id number] [place] [address]- 6489 Oct, [facility] [place] [facility] [address] [id number] [place] [address]- 7757 Oct, [facility] [place] [facility] [address] [id number] [place] [address]- 7283 Oct, [facility] [place] [facility] [address] [id number] [place] [address]- 5090 Oct, [facility] [place] [facility] [address] [id number] [place] [address]- 9083 Oct, [facility] [place] [facility] [address] [id number] [place] [address]- 2548 Oct, [facility] [place] [facility] [address] [id number] [place] [address]- 5754 Sep, [facility] [place] [facility] [address] [id number] [place] [address]- 0003 Sep, [facility] [place] [facility] [address] [id number] [place] [address]- 5668 Sep, [facility] [place] [facility] [address] [id number] [place] [address]- 7038 Sep, [facility] [place] [facility] [address] [id number] [place] [address]- 6231 Aug, [facility] [place] [facility] [address] [facility] [id number] [place] [address]- 9275 Aug, [facility] [address] [facility] [id number], [place] [address]- 4911 Aug, [facility] [address] [facility] [id number], [place] [address]- 6345 Aug, [facility] [address] [facility] [id number], [place] [address]- 0729 Aug, [facility] [address] [facility] [id number], [place] [address]- 9600 Aug, [facility] [address] [facility] [id number] 6794 Aug, IMMUNIZATIONS No Known Immunizations SOCIAL HISTORY Never Assessed REASON FOR VISIT refills PLAN OF CARE VITAL SIGNS MEDICATIONS Medication Instructions Dosage Frequency Start Date End Date Duration Status Ventolin HFA 90 MCG/ACT Inhalation every 4 hrs 2 puffs as needed 4h Active Symbicort 160-4.5 mcg/act Inhalation Twice a day 2 puffs 12h Oct, Active Celexa 10 mg Orally Once a day 1 tablet 24h Aug, Active RESULTS No Results PROCEDURES No Known procedures INSTRUCTIONS MEDICATIONS ADMINISTERED No Known Medications MEDICAL (GENERAL) HISTORY Type Description Date Medical History asthma Medical History anxiety Medical History gastric bypass Medical History anemia Medical History sleep apnea treated with biPAP Surgical History gastric bypass 2002 Hospitalization History surgery Hospitalization History anemia Hospitalization History sepsis Hospitalization History Acute hypoxic resp distress--[facility] 07/28/16 Hospitalization History Denies any past psychiatric hospitalization
--- OUTSIDE RECORDS SUMMARY | 2018-10-07 10:33 | XMS REPORT ---
Author Author BRICE RAMIREZ Organization [facility] Address [address] [place] [address] Care Team Providers Care Time Study Technician Name Role Phone BRICE RAMIREZ Unavailable PROBLEMS Type Condition ICD9-CM Code QEQ73-OX Code Onset Dates Condition Status SNOMED Code Problem Other chronic pain G89.29 Active 30059278 Problem Reactive depression F32.9 Active 59735786 Problem Iron deficiency anemia, unspecified iron deficiency anemia type D50.9 Active 55807890 Problem Eating disorder, unspecified F50.9 Active 38990592 Problem Adjustment disorder with depressed mood F43.21 Active 74228998 Problem Seasonal allergic rhinitis due to pollen J30.1 Active 87864592 Problem Asthma exacerbation J45.901 Active 186352701 Problem Psychophysiological insomnia F51.04 Active 217114552 Problem Habitual self-excoriation F42.4 Active 785804131 Problem Chronic cellulitis L03.90 Active 694596039 Problem OCD (obsessive compulsive disorder) F42 Active 082218855 Problem Obesity (BMI 30.0-34.9) E66.9 Active 701947031807651 Problem Insomnia G47.00 Active 346787453 Problem Asthma J45.909 Active 323105111 Problem Anxiety F41.9 Active 07125855 Problem SVETLANA treated with BiPAP G47.33 Active 85897461 ALLERGIES Unknown Allergies SOCIAL HISTORY No smoking [...]
--- OUTSIDE RECORDS SUMMARY | 2018-10-07 10:33 | XMS REPORT ---
Author Author SATHYA VALDES [facility] e[employer] Address Unknown Phone Unavailable Care Team Providers Care Store Group Manager Name Role Phone SATHYA VALDES CP Unavailable Allergies No Known Allergies Problems Problem Type Condition Code Onset Dates Condition Status Problem Obesity (BMI 30.0-34.9) E66.9 Active Problem OCD (obsessive compulsive disorder) F42 Active Problem Asthma J45.909 Active Problem Insomnia G47.00 Active Problem Anemia D64.9 Active Problem Chronic cellulitis L03.90 Active Problem Anxiety F41.9 Active Medications Medication Code System Code Instructions Start Date End Date Status Dosage Azithromycin [facility] [address]-44 250 MG Orally Once a day May 13, 2016 May 18, 2016 2 tablets on the first day, then 1 tablet daily for 4 days Results No Known Results Summary Purpose eClinicalWorks Submission
--- OUTSIDE RECORDS SUMMARY | 2018-10-07 10:33 | XMS REPORT ---
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 Name Role Phone NOVAKCRISTEL CarbajalELE Unavailable PROBLEMS Type Condition ICD9-CM Code ADD72-VJ Code Onset Dates Condition Status SNOMED Code Problem Habitual self-excoriation F42.4 Active 155262176 Problem Adjustment disorder with depressed mood F43.21 Active 25174425 Problem Psychophysiological insomnia F51.04 Active 613626979 Problem BMI 45.0-49.9, adult Z68.42 Active 762180144 Problem Chronic cellulitis L03.90 Active 569964581 Problem Severe persistent asthma with acute exacerbation J45.51 Active 704023057 Problem OCD (obsessive compulsive disorder) F42 Active 060947254 Problem Other obesity due to excess calories E66.09 Active 18713517172011 Problem Eating disorder, unspecified F50.9 Active 62830097 Problem Moderate persistent asthma without complication J45.40 Active 763437126 Problem Body mass index (BMI) of 40.0-44.9 in adult Z68.41 Active 924238969 Problem Obesity (BMI 30.0-34.9) E66.9 Active 089608302180802 Problem Asthma J45.909 Active 156757495 Problem Insomnia G47.00 Active 913461661 Problem Anxiety F41.9 Active 73245329 Problem Iron deficiency anemia, unspecified iron deficiency anemia type D50.9 Active 54365013 Problem Other chronic pain G89.29 Active 83007082 Problem SVETLANA treated with BiPAP G47.33 Active 85514810 Problem Asthma exacerbation J45.901 Active 200475293 Problem Reactive depression F32.9 Active 56200056 Problem Seasonal allergic rhinitis due to pollen J30.1 Active 58722527 ALLERGIES No Information ENCOUNTERS Encounter Location Date Diagnosis [facility] [address] [facility] [id number] [address] Feb, [place] [address] [id number] [place] [address] 20709- 9734 Dec, Acute pain of left knee M25.562 ; Unspecified fall, initial encounter W19.XXXA ; Unspecified place in unspecified non-institutional (private ) residence as the place of occurrence of the external cause Y92.009 ; BMI 45.0- 49.9, adult Z68.42 and Severe persistent asthma with acute exacerbation J45.51 [place] [address] [address]- 3665 Dec, Anxiety F41.9 and Psychophysiological insomnia F51.04 [place] [address] 63561- 2987 Nov, Psychophysiological insomnia F51.04 [place] [address] 52319- 6820 Oct, [place] [address] 09643- 8285 Oct, Anxiety F41.9 [place] [address] 93395- 8987 Oct, [place] [id number] [place] [address] 02213- 8848 Oct, Severe persistent asthma with acute exacerbation J45.51 ; Tobacco abuse Z72.0 and BMI 45.0-49.9, adult Z68.42 [place] [id number] [place] [address] 19312- 3540 Oct, Psychophysiological insomnia F51.04 [place] [address] 71632- 3396 Sep, Anxiety F41.9 [place] [id number] [place] [address] 28443- 7364 Sep, Anxiety F41.9 and Habitual self-excoriation F42.4 [place] [id number] [place] [address] 61222- 8986 Sep, Psychophysiological insomnia F51.04 [place] [address] 05287- 9366 Aug, Anxiety F41.9 [facility] [address] 94592- 6397 Aug, Asthma J45.909 [place] [address] 52419- 5042 Aug, Anxiety F41.9 [facility] [address] 36711 -0404 Aug, Acute bronchitis, unspecified organism J20.9 [place] [address] 53561- 5802 Aug, Psychophysiological insomnia F51.04 [place] [address] 28853- 6163 Jul, Therapeutic drug monitoring Z51.81 [place] [address] 32366- 8837 Jul, [place] [address] 60810- 3764 Jul, Habitual self-excoriation F42.4 [place] [address] 61178- 0105 08 Jul, 2017 [place] [address] 30411- 1250 07 Jul, 2017 [place] [address] 74583- 1052 Jun, SVETLANA treated with BiPAP G47.33 ; Moderate persistent asthma without complication J45.40 ; Anxiety F41.9 ; Other obesity due to excess calories E66.09 ; Body mass index (BMI) of 40.0-44.9 in adult Z68.41 ; Psychophysiological insomnia F51.04 and Encounter for immunization Z23 [place] [id number] [place] [address] 79051- 0586 Jun, [place] [address] 60232- 2197 Jun, Habitual self-excoriation F42.4 ; Adjustment disorder with depressed mood F43.21 ; Psychophysiological insomnia F51.04 and Eating disorder , unspecified F50.9 [place] [id number] [place] [address] 84084- 0109 Jun, Visit for TB skin test Z11.1 [place] [address] 78245- 2095 Jun, Habitual self-excoriation F42.4 and Psychophysiological insomnia F51.04 [place] [address] 76719- 0346 Jun, Asthma J45.909 [place] [id number] [place] [address] 28277- 6028 May, Asthma J45.909 [place] [id number] [place] [address] 99896- 1918 May, [place] [id number] [place] [address] 29954- 8757 May, Habitual self-excoriation F42.4 and Psychophysiological insomnia F51.04 [place] [id number] [place] [address] 29316- 8628 Apr, Habitual self-excoriation F42.4 ; Adjustment disorder with depressed mood F43.21 ; Psychophysiological insomnia F51.04 and Eating disorder , unspecified F50.9 [place] [id number] [place] [address] 89400- 5953 Apr, [place] [id number] [place] [address] 86707- 2477 Apr, Habitual self-excoriation F42.4 ; Adjustment disorder with depressed mood F43.21 ; Psychophysiological insomnia F51.04 and 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901 and Seasonal allergic rhinitis due to pollen J30.1 [place] [id number] [place] [address] 01106- 4622 January, [place] [id number] [place] [address] 68335- 5942 January, Anxiety F41.9 [place] [id number] [place] [address] 54273- 7014 Dec, Therapeutic drug monitoring Z51.81 [place] [id number] [place] [address] 30848- 9824 Dec, Anxiety F41.9 and Asthma J45.909 [place] [id number] [place] [address] 88563- 1098 Nov, Asthma J45.909 [place] [address] 68793- 9031 Nov, Anxiety F41.9 [place] [id number] [place] [address] 88396- 5774 Oct, Asthma exacerbation J45.901 ; Pain in right knee M25.561 ; Pain in left knee M25.562 and Open wound of eyebrow, left, subsequent encounter S01.102D [place] [address] 87296- 9293 16 Oct, 2016 [facility] [id number] [place] [address] 72094 -7510 11 Oct, 2016 Other viral agents as the cause of diseases classified elsewhere B97.89 and Acute upper respiratory infection, unspecified J06.9 [place] [id number] [place] [address] 64615- 5121 Oct, [place] [address] 39351- 8420 Oct, [place] [id number] [place] [address] 45229- 0964 Oct, Anxiety F41.9 [place] [address] 56296- 6887 Sep, [place] [id number] [place] [address] 12903- 1942 Sep, SVETLANA treated with BiPAP G47.33 and Asthma J45.909 [place] [address] [id number] [place] [address] 41720- 4809 Sep, SVETLANA treated with BiPAP G47.33 ; Obesity (BMI 30.0-34.9) E66.9 and Reactive depression F32.9 [place] [address] [id number] [place] [address] 85010- 7329 Sep, Anxiety F41.9 [place] [address] 99646- 5092 Aug, [facility] [address] [id number] [place] [address] 51030- 0805 Aug, Insomnia G47.00 [facility] [address] [id number] [place] [address] 60405- 4988 Aug, [facility] [address] [place] [id number] [place] [address] 35119- 3908 Aug, SVETLANA treated with BiPAP G47.33 and On supplemental oxygen therapy Z99.81 [facility] [id number] [place] [address] 41713- 1551 Jul, On supplemental oxygen therapy Z99.81 ; Obesity (BMI 30.0- 34.9) E66.9 and SVETLANA treated with BiPAP G47.33 [facility] [address] [place] [id number] [place] [address] 91237- 9633 17 Jul, 2016 Mucus plugging of bronchi J98.09 ; On supplemental oxygen therapy Z99.81 ; Acute midline thoracic back pain M54.6 and SVETLANA treated with BiPAP G47.33 [facility] [address] [id number] [place] [address] 91806- 2224 16 Jul, 2016 [facility] [address] [id number] [place] [address] 11287- 5404 15 Jul, 2016 [facility] [id number] [place] [address] 33286- 4100 Jul, [facility] [id number] [place] [address] 32570- 3703 May, [facility] [address] [id number] [place] [address] 25921- 5760 May, [facility] [id number] [place] [address] 08520- 6927 Apr, [facility] [address] [id number] [place] [address] 99106- 1930 Apr, [facility] [id number] [place] [address] 40708- 1841 Apr, Insomnia G47.00 ; Anemia D64.9 ; OCD (obsessive compulsive disorder) F42 ; Anxiety F41.9 ; Asthma J45.909 and Obesity (BMI 30.0-34.9) E66.9 [facility] [id number] [place] [address] 68759- 7202 Feb, [place] [address] 94392- 6712 Feb, Insomnia G47.00 [place] [id number] [place] [address] 79257- 4552 Nov, [place] [id number] [place] [address] 92054- 5262 Nov, [place] [address] [id number] [place] [address] 43350- 7449 Nov, [place] [address] 96431- 9595 Nov, OCD (obsessive compulsive disorder) F42 ; Anxiety F41.9 ; Insomnia G47.00 ; Anemia D64.9 and Asthma J45.909 [place] [id number] [place] [address] 23143- 2263 Nov, [place] [id number] [place] [address] 21847- 5635 Oct, [place] [id number] [place] [address] 07040- 0440 Aug, OCD (obsessive compulsive disorder) F42 ; Chronic cellulitis L03.90 ; Anxiety F41.9 ; Insomnia G47.00 ; Anemia D64.9 and Asthma J45.909 [place] [address] [place] [address] 35272- 8428 Aug, [facility] [id number] [place] [address] 78403- 0650 Jul, [address] [id number] [address]- 5814 Jul, OCD (obsessive compulsive disorder) F42 ; Chronic cellulitis L03.90 ; Anxiety F41.9 ; Insomnia G47.00 and Anemia D64.9 [facility] [address] [place] [address]- 8416 14 Dec, 2014 [facility] [id number] [place] [address] 54488- 7203 Dec, [facility] [address] [place] [address]- 6870 Aug, [facility] [id number] [place] [address], [place] [address]- 3726 Aug, [facility] [address] [place] [id number] [place] [address]- 1450 Aug, [facility] [id number] [place] [address], [place] [address]- 9377 Aug, [facility] [address] [address]- 4535 Aug, [facility] [address] [address]- 2638 Aug, [facility] [address] [address]- 4776 Aug, [facility] [address] [address]- 8879 Jul, [facility] [address] [address]- 7023 Jul, [facility] [id number] [address]- 7425 Jul, [facility] [address] [address]- 3024 Jul, [facility] [address] [address]- 9725 Apr, [facility] [place] [facility] [address] [id number] [place] [address]- 0108 Apr, [facility] [place] [facility] [address] [id number] [place] [address]- 7915 Feb, [facility] [place] [facility] [address] [id number] [place] [address]- 1302 Feb, [facility] [place] [facility] [address] [id number] [place] [address]- 3460 Feb, [facility] [place] [facility] [address] [id number] [place] [address]- 1946 Feb, [facility] [place] [facility] [address] [id number] [place] [address]- 6856 January, [facility] [place] [facility] [address] [id number] [place] [address]- 4366 January, [facility] [place] [facility] [address] [id number] [place] [address]- 4721 January, [facility] [place] [facility] [address] [id number] [place] [address]- 6561 Dec, [facility] [place] [facility] [address] [id number] [place] [address]- 3141 Dec, [facility] [place] [facility] [address] [id number] [place] [address]- 8730 Dec, [facility] [place] [facility] [address] [id number] [place] [address]- 9847 Dec, [facility] [place] [facility] [address] [id number] [place] [address]- 5608 Nov, [facility] [place] [facility] [address] [id number] [place] [address]- 4712 Nov, [facility] [place] [facility] [address] [id number] [place] [address]- 6611 Nov, [facility] [place] [facility] [address] [id number] [place] [address]- 0611 Nov, [facility] [place] [facility] [address] [id number] [place] [address]- 6673 Nov, [facility] [place] [facility] [address] [id number] [place] [address]- 4957 Nov, [facility] [place] [facility] [address] [facility] [place] [id number] [place] [address]- 3967 Oct, [facility] [place] [facility] [address] [id number] [place] [address]- 7580 Oct, [facility] [place] [facility] [address] [id number] [place] [address]- 1662 Oct, [facility] [place] [facility] [address] [facility] [place] [id number] [place] [address]- 2469 Oct, [facility] [place] [facility] [address] [facility] [place] [id number] [place] [address]- 8764 Oct, [facility] [place] [facility] [address] [facility] [place] [id number] [place] [address]- 5208 Oct, [facility] [place] [facility] [address] [facility] [place] [id number] [place] [address]- 9084 Oct, [facility] [place] [facility] [address] [facility] [place] [id number] [place] [address]- 8123 Oct, [facility] [place] [facility] [address] [facility] [place] [id number] [place] [address]- 4085 Oct, [facility] [place] [facility] [address] [facility] [place] [id number] [place] [address]- 8803 Oct, [facility] [place] [facility] [address] [facility] [place] [id number] [place] [address]- 8740 Oct, [facility] [place] [facility] [address] [facility] [place] [id number] [place] [address]- 1071 Oct, [facility] [place] [facility] [address] [facility] [id number], [place] [address]- 6435 Sep, [facility] [address] [facility] [id number], [place] [address]- 7233 Sep, [facility] [address] [facility] [place] [id number], [place] [address]- 3385 Sep, [facility] [address] [facility] [place] [id number], [place] [address]- 1189 Sep, [facility] [address] [facility] [place] [id number], [place] [address]- 2701 Aug, [facility] [address] [facility] [place] [id number], [place] [address]- 4076 Aug, [facility] [address] [facility] [place] [id number], [place] [address]- 1956 Aug, [facility] [address], [place] [address]- 9083 Aug, [facility] [id number] [address]- 5831 Aug, [facility] [id number] [address]- 5732 Aug, [facility] [address] [facility] [place] [place] [id number], [place] [address]- 8740 Aug, IMMUNIZATIONS No Known Immunizations SOCIAL HISTORY Never Assessed REASON FOR VISIT Controlled Med Refill PLAN OF CARE VITAL SIGNS MEDICATIONS Medication Instructions Dosage Frequency Start Date End Date Duration Status Hydrocodone-Acetaminophen 5-325 MG Orally 2 times a day as needed 1 tablet May, Active RESULTS No Results PROCEDURES No Known procedures INSTRUCTIONS MEDICATIONS ADMINISTERED No Known Medications MEDICAL (GENERAL) HISTORY Type Description Date Medical History asthma Medical History anxiety Medical History gastric bypass Medical History anemia Medical History sleep apnea treated with biPAP Surgical History gastric bypass 2002 Hospitalization History surgery Hospitalization History anemia Hospitalization History sepsis Hospitalization History Acute hypoxic resp distress--[facility] 07/28/16 Hospitalization History Denies any past psychiatric hospitalization
--- OUTSIDE RECORDS SUMMARY | 2018-10-07 10:34 | XMS REPORT ---
Author Author BRICE RAMIREZ Organization [facility] Address [address] [place] [address] Care Team Providers Care [employer] Manager Name Role Phone BRICE RAMIREZ Unavailable PROBLEMS Type Condition ICD9-CM Code WOI27-FK Code Onset Dates Condition Status SNOMED Code Problem Psychophysiological insomnia F51.04 Active 366908358 Problem Eating disorder, unspecified F50.9 Active 76227004 Problem Adjustment disorder with depressed mood F43.21 Active 65696504 Problem COPD exacerbation J44.1 Active 873555776 Problem Insomnia G47.00 Active 518556361 Problem BMI 45.0-49.9, adult Z68.42 Active 112136570 Problem OCD (obsessive compulsive disorder) F42 Active 744361487 Problem Chronic cellulitis L03.90 Active 254932650 Problem Moderate persistent asthma without complication J45.40 Active 348631437 Problem Body mass index (BMI) of 40.0-44.9 in adult Z68.41 Active 830684072 Problem Severe persistent asthma with acute exacerbation J45.51 Active 637998615 Problem Other obesity due to excess calories E66.09 Active 73445489884003 Problem Obesity (BMI 30.0-34.9) E66.9 Active 814129631989845 Problem SVETLANA treated with BiPAP G47.33 Active 27332668 Problem Anxiety F41.9 Active 35485578 Problem Asthma J45.909 Active 073685666 Problem Iron deficiency anemia, unspecified iron deficiency anemia type D50.9 Active 15413692 Problem Asthma exacerbation J45.901 Active 515560086 Problem Reactive depression F32.9 Active 93086482 Problem Seasonal allergic rhinitis due to pollen J30.1 Active 18858924 Problem Other chronic pain G89.29 Active 35190889 Problem Habitual self-excoriation F42.4 Active 593376966 ALLERGIES No Information ENCOUNTERS Encounter Location Date Diagnosis [facility] [id number] [place] [address] 27422- 0655 Mar, [place] [address] [address]18- 6471 Feb, [place] [address] 32212- 1698 Feb, Anxiety F41.9 and Psychophysiological insomnia F51.04 [place] [address] 76727- 7586 January, Acute pain of left knee M25.562 and BMI 50.0-59.9, adult Z68.43 [place] [address] 88102- 8565 January, [place] [address] 80292- 3184 January, COPD exacerbation J44.1 and Severe persistent asthma with acute exacerbation J45.51 [place] [address] 05201- 4537 January, Anxiety F41.9 and Psychophysiological insomnia F51.04 [place] [address] 22174- 5994 January, COPD exacerbation J44.1 and Left medial knee pain M25.562 [place] [address] 08034- 5050 Dec, COPD with exacerbation J44.1 ; BMI 45.0-49.9, adult Z68.42 ; SVETLANA treated with BiPAP G47.33 and Psychophysiological insomnia F51.04 [place] [id number] [place] [address] 93105- 4938 Dec, [place] [address] 49956- 2348 Dec, Acute pain of left knee M25.562 ; Unspecified fall, initial encounter W19.XXXA ; Unspecified place in unspecified non-institutional (private ) residence as the place of occurrence of the external cause Y92.009 ; BMI 45.0- 49.9, adult Z68.42 and Severe persistent asthma with acute exacerbation J45.51 [place] [id number] [place] [address] 52163- 8981 Dec, Anxiety F41.9 and Psychophysiological insomnia F51.04 [place] [id number] [place] [address] 65801- 5628 Nov, Psychophysiological insomnia F51.04 [place] [address] 09602- 9485 Oct, [place] [address] 92662- 4036 Oct, Anxiety F41.9 [place] [address] 06448- 7225 Oct, [place] [address] 19864- 1302 Oct, Severe persistent asthma with acute exacerbation J45.51 ; Tobacco abuse Z72.0 and BMI 45.0-49.9, adult Z68.42 [place] [id number] [place] [address] 73329- 5945 Oct, Psychophysiological insomnia F51.04 [place] [id number] [place] [address] 59337- 5332 Sep, Anxiety F41.9 [place] [id number] [place] [address] 76904- 6949 Sep, Anxiety F41.9 and Habitual self-excoriation F42.4 [place] [address] 98025- 9213 Sep, Psychophysiological insomnia F51.04 [place] [id number] [place] [address] 22776- 8735 Aug, Anxiety F41.9 [place] [id number] [place] [address] 77257- 9554 Aug, Asthma J45.909 [facility] [address] 65156- 5337 Aug, Anxiety F41.9 [facility] [id number] [place] [address] 71240 -4991 Aug, Acute bronchitis, unspecified organism J20.9 [facility] [address] 99914- 7254 Aug, Psychophysiological insomnia F51.04 [place] [address] 00495- 9119 Jul, Therapeutic drug monitoring Z51.81 [place] [address] 38836- 7239 Jul, [place] [address] 35880- 8876 Jul, Habitual self-excoriation F42.4 [place] [address] 05679- 7783 Jul, [place] [address] 93998- 6120 Jul, [place] [id number] [place] [address] 02615- 3614 Jun, SVETLANA treated with BiPAP G47.33 ; Moderate persistent asthma without complication J45.40 ; Anxiety F41.9 ; Other obesity due to excess calories E66.09 ; Body mass index (BMI) of 40.0-44.9 in adult Z68.41 ; Psychophysiological insomnia F51.04 and Encounter for immunization Z23 [place] [id number] [place] [address] 01357- 6591 Jun, [place] [id number] [place] [address] 30903- 7990 Jun, Habitual self-excoriation F42.4 ; Adjustment disorder with depressed mood F43.21 ; Psychophysiological insomnia F51.04 and Eating disorder , unspecified F50.9 [place] [id number] [place] [address] 01992- 6896 Jun, Visit for TB skin test Z11.1 [place] [id number] [place] [address] 27151- 6617 Jun, Habitual self-excoriation F42.4 and Psychophysiological insomnia F51.04 [place] [id number] [place] [address] 90440- 9641 Jun, Asthma J45.909 [place] [address] 36007- 2557 May, Asthma J45.909 [place] [address] 32685- 9637 May, [place] [address] 98138- 7457 May, Habitual self-excoriation F42.4 and Psychophysiological insomnia F51.04 [place] [id number] [place] [address] 98227- 4498 Apr, Habitual self-excoriation F42.4 ; Adjustment disorder with depressed mood F43.21 ; Psychophysiological insomnia F51.04 and Eating disorder , unspecified F50.9 [place] [id number] [place] [address] 31533- 5796 Apr, [place] [id number] [place] [address] 80941- 6050 Apr, Habitual self-excoriation F42.4 ; Adjustment disorder with depressed mood F43.21 ; Psychophysiological insomnia F51.04 and Other longterm (current) drug therapy Z79.899 [place] [id number] [place] [address] 13739- 4771 Mar, [place] [address] [place] [address]- 1053 Mar, [facility] [id number] [place] [address] 66367- 2940 Mar, Anxiety F41.9 [facility] [id number] [place] [address] 07266- 3517 Feb, Asthma J45.909 [place] [address] 48490- 6686 Feb, [place] [id number] [place] [address] 80034- 6975 Feb, Anxiety F41.9 [place] [id number] [place] [address] 06115- 0497 Feb, Asthma exacerbation J45.901 and Seasonal allergic rhinitis due to pollen J30.1 [place] [address] 85486- 0391 January, [place] [id number] [place] [address] 45140- 7535 January, Anxiety F41.9 [place] [id number] [place] [address] 61639- 0940 Dec, Therapeutic drug monitoring Z51.81 [place] [id number] [place] [address] 14518- 9337 Dec, Anxiety F41.9 and Asthma J45.909 [place] [id number] [place] [address] 88898- 3949 Nov, Asthma J45.909 [place] [id number] [place] [address] 16515- 3938 Nov, Anxiety F41.9 [place] [address] [place] [address] 10841- 0480 Oct, Asthma exacerbation J45.901 ; Pain in right knee M25.561 ; Pain in left knee M25.562 and Open wound of eyebrow, left, subsequent encounter S01.102D [facility] [id number] [place] [address] 10628- 5616 16 Oct, 2016 [facility] [address] 12732 -1406 11 Oct, 2016 Other viral agents as the cause of diseases classified elsewhere B97.89 and Acute upper respiratory infection, unspecified J06.9 [place] [address] 10077- 8963 10 Oct, 2016 [place] [address] 26101- 2132 Oct, [place] [address] 60781- 7294 02 Oct, 2016 Anxiety F41.9 [place] [address] 98382- 7337 Sep, [place] [id number] [place] [address] 94845- 9537 Sep, SVETLANA treated with BiPAP G47.33 and Asthma J45.909 [place] [address] 05494- 0809 Sep, SVETLANA treated with BiPAP G47.33 ; Obesity (BMI 30.0-34.9) E66.9 and Reactive depression F32.9 [place] [id number] [place] [address] 94988- 4292 Sep, Anxiety F41.9 [place] [id number] [place] [address] 45275- 0722 Aug, [place] [address] 61731- 7579 Aug, Insomnia G47.00 [place] [address] 46339- 9130 Aug, [place] [id number] [place] [address] 11916- 8074 Aug, SVETLANA treated with BiPAP G47.33 and On supplemental oxygen therapy Z99.81 [facility] [id number] [place] [address] 82756- 0581 Jul, On supplemental oxygen therapy Z99.81 ; Obesity (BMI 30.0- 34.9) E66.9 and SVETLANA treated with BiPAP G47.33 [place] [address] 73510- 9751 17 Jul, 2016 Mucus plugging of bronchi J98.09 ; On supplemental oxygen therapy Z99.81 ; Acute midline thoracic back pain M54.6 and SVETLANA treated with BiPAP G47.33 [facility] [id number] [place] [address] 88304- 7008 16 Jul, 2016 [place] [address] 52018- 9124 Jul, [place] [id number] [place] [address] 97400- 8803 Jul, [facility] [address] 68541- 5624 May, [place] [id number] [place] [address] 87876- 9272 May, [facility] [id number] [place] [address] 91183- 1726 Apr, [facility] [id number] [place] [address] 29426- 7682 Apr, [facility] [address] 94331- 3484 Apr, Insomnia G47.00 ; Anemia D64.9 ; OCD (obsessive compulsive disorder) F42 ; Anxiety F41.9 ; Asthma J45.909 and Obesity (BMI 30.0-34.9) E66.9 [facility] [address] [place] [address]- 3164 Feb, [facility] [id number] [place] [address] 31195- 9560 Feb, Insomnia G47.00 [facility] [id number] [place] [address] 39240- 1101 Nov, [facility] [id number] [place] [address] 20821- 3232 Nov, [facility] [address] 85262- 6318 Nov, [facility] [address] 03223- 4248 Nov, OCD (obsessive compulsive disorder) F42 ; Anxiety F41.9 ; Insomnia G47.00 ; Anemia D64.9 and Asthma J45.909 [place] [address] 84786- 4253 Nov, [facility] [id number] [place] [address] 62411- 0891 Oct, [facility] [id number] [place] [address] 24022- 0103 Aug, OCD (obsessive compulsive disorder) F42 ; Chronic cellulitis L03.90 ; Anxiety F41.9 ; Insomnia G47.00 ; Anemia D64.9 and Asthma J45.909 [facility] [id number] [place] [address] 53793- 7680 Aug, [facility] [id number] [place] [address] 62572- 6419 Jul, [facility] [id number] [place] [address] 85862- 8654 Jul, OCD (obsessive compulsive disorder) F42 ; Chronic cellulitis L03.90 ; Anxiety F41.9 ; Insomnia G47.00 and Anemia D64.9 [facility] [id number] [place] [address] 58996- 1081 14 Dec, 2014 [facility] [place] [facility] [address] [id number] [place] [address]- 2464 13 Dec, 2014 [facility] [place] [facility] [address] [id number] [place] [address]- 8910 Aug, [facility] [place] [facility] [address] [facility] [id number] [place] [address]- 2292 Aug, [facility] [place] [facility] [address] [id number] [place] [address]- 3928 14 Aug, 2014 [facility] [place] [facility] [address] [id number] [place] [address]- 7295 Aug, [facility] [place] [facility] [address] [id number] [place] [address]- 8728 Aug, [facility] [place] [facility] [id number] [place] [address]- 8024 Aug, [facility] [place] [facility] [address] [id number] [place] [address]- 5167 Aug, [facility] [place] [facility] [address] [id number] [place] [address]- 7611 Jul, [facility] [place] [facility] [address] [facility] [id number] [place] [address]- 6500 Jul, [facility] [place] [facility] [address] [id number] [place] [address]- 0093 Jul, [facility] [place] [facility] [address] [id number], [place] [address]- 1471 Jul, [facility] [place] [facility] [address] [id number] [place] [address]- 5944 Apr, [facility] [place] [facility] [address] [id number] [place] [address]- 6174 Apr, [facility] [place] [facility] [address] [facility] [id number] [place] [address]- 2785 Feb, [facility] [place] [facility] [address] [id number] [place] [address]- 0160 Feb, [facility] [place] [facility] [address] [id number] [place] [address]- 5744 Feb, [facility] [place] [facility] [address] [id number] [place] [address]- 6386 Feb, [facility] [place] [facility] [address] [id number] [place] [address]- 4330 January, [facility] [place] [facility] [address] [id number] [place] [address]- 2311 January, [facility] [place] [facility] [address] [id number] [place] [address]- 8888 January, [facility] [place] [facility] [address] [id number] [place] [address]- 6871 Dec, [facility] [place] [facility] [address] [id number] [place] [address]- 3600 Dec, [facility] [place] [facility] [address] [id number] [place] [address]- 4782 Dec, [facility] [place] [facility] [address] [id number] [place] [address]- 3804 Dec, [facility] [place] [facility] [address] [id number] [place] [address]- 9193 Nov, [facility] [place] [facility] [address] [id number] [place] [address]- 6631 Nov, [facility] [place] [facility] [address] [id number] [place] [address]- 5528 Nov, [facility] [place] [facility] [address] [id number] [place] [address]- 9816 Nov, [facility] [place] [facility] [address] [id number] [place] [address]- 4892 Nov, [facility] [place] [facility] [address] [id number] [place] [address]- 6589 Nov, [facility] [place] [facility] [address] [id number] [place] [address]- 8160 Oct, [facility] [place] [facility] [address] [id number] [place] [address]- 4926 Oct, [facility] [place] [facility] [address] [facility] [id number] [place] [address]- 1500 Oct, [facility] [place] [facility] [address] [id number] [place] [address]- 0823 Oct, [facility] [place] [facility] [address] [id number] [place] [address]- 2483 Oct, [facility] [place] [facility] [address] [facility] [id number] [place] [address]- 2435 Oct, [facility] [place] [facility] [address] [facility] [id number] [place] [address]- 2804 Oct, [facility] [place] [facility] [address] [facility] [id number] [place] [address]- 9033 Oct, [facility] [place] [facility] [address] [facility] [id number] [place] [address]- 2550 Oct, [facility] [place] [facility] [address] [facility] [id number] [place] [address]- 9391 Oct, [facility] [place] [facility] [address] [facility] [id number] [place] [address]- 9839 Oct, [facility] [place] [facility] [address] [facility] [id number] [place] [address]- 0616 Oct, [facility] [place] [facility] [address] [facility] [id number] [place] [address]- 0403 Sep, [facility] [place] [facility] [address] [facility] [id number] [place] [address]- 8049 Sep, [facility] [place] [facility] [address] [facility] [id number], [place] [address]- 6624 Sep, [facility] [address] [id number] [address]- 4983 Sep, [facility] [address] [address]- 1300 Aug, [facility] [address] [address]- 0642 Aug, [facility] [id number] [place] [address] 849397- 9335 Aug, [facility] [address] [address]- 7451 Aug, [facility] [address] [address]- 4689 Aug, [facility] [address] [address]- 2700 Aug, [facility] [address] [address]- 9130 Aug, IMMUNIZATIONS No Known Immunizations SOCIAL HISTORY [...] History sepsis Hospitalization History Acute hypoxic resp distress--[facility] 07/28/16 Hospitalization History Denies any past psychiatric hospitalization
--- OUTSIDE RECORDS SUMMARY | 2018-10-07 10:34 | XMS REPORT ---
Author Author BRICE RAMIREZ Organization [facility] Address [address] [place] [address] Care Team Providers Care Retail Department Reset Name Role Phone BRICE RAMIREZ Unavailable PROBLEMS Type Condition ICD9-CM Code HVF64-YL Code Onset Dates Condition Status SNOMED Code Problem Psychophysiological insomnia F51.04 Active 432668213 Problem Eating disorder, unspecified F50.9 Active 58132043 Problem Adjustment disorder with depressed mood F43.21 Active 59219937 Problem COPD exacerbation J44.1 Active 176025963 Problem Insomnia G47.00 Active 589753052 Problem BMI 45.0-49.9, adult Z68.42 Active 936283951 Problem OCD (obsessive compulsive disorder) F42 Active 025331229 Problem Chronic cellulitis L03.90 Active 576643257 Problem Moderate persistent asthma without complication J45.40 Active 823859671 Problem Body mass index (BMI) of 40.0-44.9 in adult Z68.41 Active 926349448 Problem Severe persistent asthma with acute exacerbation J45.51 Active 609918126 Problem Other obesity due to excess calories E66.09 Active 84915094168867 Problem Obesity (BMI 30.0-34.9) E66.9 Active 950567643222538 Problem SVETLANA treated with BiPAP G47.33 Active 72562778 Problem Anxiety F41.9 Active 98252569 Problem Asthma J45.909 Active 080781758 Problem Iron deficiency anemia, unspecified iron deficiency anemia type D50.9 Active 74229678 Problem Asthma exacerbation J45.901 Active 177513152 Problem Reactive depression F32.9 Active 30970907 Problem Seasonal allergic rhinitis due to pollen J30.1 Active 77576544 Problem Other chronic pain G89.29 Active 45806595 Problem Habitual self-excoriation F42.4 Active 604935480 ALLERGIES No Information ENCOUNTERS Encounter Location Date Diagnosis [facility] [id number] [place] [address] 03747- 9313 Feb, Anxiety F41.9 and Psychophysiological insomnia F51.04 [place] [address] 94239- 1763 January, Acute pain of left knee M25.562 and BMI 50.0-59.9, adult Z68.43 [place] [address] 79843- 7825 January, [place] [address] 61424- 0741 January, COPD exacerbation J44.1 and Severe persistent asthma with acute exacerbation J45.51 [place] [address] 50047- 1805 January, Anxiety F41.9 and Psychophysiological insomnia F51.04 [place] [address] 46032- 0941 January, COPD exacerbation J44.1 and Left medial knee pain M25.562 [place] [address] 98780- 2285 Dec, COPD with exacerbation J44.1 ; BMI 45.0-49.9, adult Z68.42 ; SVETLANA treated with BiPAP G47.33 and Psychophysiological insomnia F51.04 [place] [id number] [place] [address] 64048- 0453 Dec, [place] [id number] [place] [address] 54494- 7342 Dec, Acute pain of left knee M25.562 ; Unspecified fall, initial encounter W19.XXXA ; Unspecified place in unspecified non-institutional (private ) residence as the place of occurrence of the external cause Y92.009 ; BMI 45.0- 49.9, adult Z68.42 and Severe persistent asthma with acute exacerbation J45.51 [place] [id number] [place] [address] 83718- 0002 Dec, Anxiety F41.9 and Psychophysiological insomnia F51.04 [facility] [id number] [place] [address] 76022- 6237 Nov, Psychophysiological insomnia F51.04 [place] [address] 80217- 0017 Oct, [place] [address] 69328- 1944 Oct, Anxiety F41.9 [place] [address] 72100- 6865 Oct, [place] [address] 81717- 7252 Oct, Severe persistent asthma with acute exacerbation J45.51 ; Tobacco abuse Z72.0 and BMI 45.0-49.9, adult Z68.42 [place] [address] 57692- 6874 Oct, Psychophysiological insomnia F51.04 [place] [id number] [place] [address] 90108- 2598 Sep, Anxiety F41.9 [place] [address] 59704- 5359 Sep, Anxiety F41.9 and Habitual self-excoriation F42.4 [place] [id number] [place] [address] 33173- 2925 Sep, Psychophysiological insomnia F51.04 [place] [id number] [place] [address] 92188- 3408 Aug, Anxiety F41.9 [place] [address] 12587- 0621 Aug, Asthma J45.909 [place] [address] 94995- 5551 Aug, Anxiety F41.9 [facility] [id number] [place] [address] 49082 -6432 Aug, Acute bronchitis, unspecified organism J20.9 [facility] [id number] [place] [address] 87441- 0483 Aug, Psychophysiological insomnia F51.04 [facility] [id number] [place] [address] 78816- 1923 Jul, Therapeutic drug monitoring Z51.81 [place] [id number] [place] [address] 89786- 6306 Jul, [place] [address] 19271- 0701 Jul, Habitual self-excoriation F42.4 [place] [address] 43085- 1446 Jul, [place] [address] 24433- 5403 Jul, [place] [id number] [place] [address] 93050- 0459 Jun, SVETLANA treated with BiPAP G47.33 ; Moderate persistent asthma without complication J45.40 ; Anxiety F41.9 ; Other obesity due to excess calories E66.09 ; Body mass index (BMI) of 40.0-44.9 in adult Z68.41 ; Psychophysiological insomnia F51.04 and Encounter for immunization Z23 [place] [id number] [place] [address] 98729- 8645 Jun, [place] [id number] [place] [address] 43088- 0692 Jun, Habitual self-excoriation F42.4 ; Adjustment disorder with depressed mood F43.21 ; Psychophysiological insomnia F51.04 and Eating disorder , unspecified F50.9 [facility] [id number] [place] [address] 26145- 8714 Jun, Visit for TB skin test Z11.1 [facility] [address] [address]- 9870 Jun, Habitual self-excoriation F42.4 and Psychophysiological insomnia F51.04 [facility] [address] [address]- 3135 Jun, Asthma J45.909 [facility] [id number] [place] [address] 86500- 4118 May, Asthma J45.909 [facility] [id number] [place] [address] 33676- 1771 May, [place] [id number] [place] [address] 23552- 9036 May, Habitual self-excoriation F42.4 and Psychophysiological insomnia F51.04 [place] [address] [place] [address] 55110- 2685 Apr, Habitual self-excoriation F42.4 ; Adjustment disorder with depressed mood F43.21 ; Psychophysiological insomnia F51.04 and Eating disorder , unspecified F50.9 [place] [address] [place] [address] 45429- 2508 Apr, [place] [address] [place] [address] 19499- 6287 Apr, Habitual self-excoriation F42.4 ; Adjustment disorder with depressed mood F43.21 ; Psychophysiological insomnia F51.04 and Other shelter (current) drug therapy Z79.899 [place] [address] [address]- 0768 Mar, [place] [id number] [place] [address] 51170- 7251 Mar, [place] [address] [place] [address] 20269- 3489 Mar, Anxiety F41.9 [place] [id number] [place] [address] 02427- 4288 Feb, Asthma J45.909 [facility] [id number] [place] [address] 05741- 6726 Feb, [facility] [id number] [place] [address] 09905- 5513 Feb, Anxiety F41.9 [place] [id number] [place] [address] 21763- 0036 Feb, Asthma exacerbation J45.901 and Seasonal allergic rhinitis due to pollen J30.1 [place] [id number] [place] [address] 66960- 3645 January, [place] [id number] [place] [address] 82509- 3910 January, Anxiety F41.9 [place] [address] 46660- 8117 Dec, Therapeutic drug monitoring Z51.81 [place] [id number] [place] [address] 12876- 7139 Dec, Anxiety F41.9 and Asthma J45.909 [place] [id number] [place] [address] 48235- 2924 Nov, Asthma J45.909 [place] [id number] [place] [address] 06231- 0030 Nov, Anxiety F41.9 [place] [id number] [place] [address] 79224- 1052 Oct, Asthma exacerbation J45.901 ; Pain in right knee M25.561 ; Pain in left knee M25.562 and Open wound of eyebrow, left, subsequent encounter S01.102D [facility] [address] [place] [address] 49275- 4111 16 Oct, 2016 [facility] [address] 00611 -3478 Oct, Other viral agents as the cause of diseases classified elsewhere B97.89 and Acute upper respiratory infection, unspecified J06.9 [place] [address] 79697- 5565 10 Oct, 2016 [place] [address] 40854- 3792 Oct, [place] [address] 16525- 5429 Oct, Anxiety F41.9 [place] [address] 98397- 4374 Sep, [place] [address] 62622- 9238 Sep, SVETLANA treated with BiPAP G47.33 and Asthma J45.909 [place] [address] 57122- 9916 Sep, SVETLANA treated with BiPAP G47.33 ; Obesity (BMI 30.0-34.9) E66.9 and Reactive depression F32.9 [place] [address] 35154- 1215 Sep, Anxiety F41.9 [place] [address] 89599- 9817 Aug, [place] [address] 11293- 5457 Aug, Insomnia G47.00 [place] [address] 86033- 0303 Aug, [place] [address] [address]- 0208 Aug, SVETLANA treated with BiPAP G47.33 and On supplemental oxygen therapy Z99.81 [place] [address] 71855- 5677 Jul, On supplemental oxygen therapy Z99.81 ; Obesity (BMI 30.0- 34.9) E66.9 and SVETLANA treated with BiPAP G47.33 [facility] [id number] [place] [address] 08552- 6904 17 Jul, 2016 Mucus plugging of bronchi J98.09 ; On supplemental oxygen therapy Z99.81 ; Acute midline thoracic back pain M54.6 and SVETLANA treated with BiPAP G47.33 [facility] [id number] [place] [address] 37050- 3969 16 Jul, 2016 [facility] [id number] [place] [address] 97205- 5001 Jul, [facility] [id number] [place] [address] 41156- 7816 Jul, [facility] [id number] [place] [address] 02965- 5567 May, [facility] [id number] [place] [address] 92032- 9734 May, [facility] [id number] [place] [address] 04502- 4417 Apr, [facility] [id number] [place] [address] 22086- 1131 Apr, [facility] [id number] [place] [address] 36738- 6065 Apr, Insomnia G47.00 ; Anemia D64.9 ; OCD (obsessive compulsive disorder) F42 ; Anxiety F41.9 ; Asthma J45.909 and Obesity (BMI 30.0-34.9) E66.9 [facility] [id number] [place] [address] 72156- 4065 Feb, [facility] [id number] [place] [address] 73460- 3182 Feb, Insomnia G47.00 [facility] [id number] [address]- 8554 17 Nov, 2015 [facility] [id number] [place] [address] 27574- 2776 Nov, [facility] [id number] [place] [address] 50027- 3765 15 Nov, 2015 [facility] [id number] [place] [address] 39686- 8781 14 Nov, 2015 OCD (obsessive compulsive disorder) F42 ; Anxiety F41.9 ; Insomnia G47.00 ; Anemia D64.9 and Asthma J45.909 [facility] [id number] [place] [address] 16657- 7350 Nov, [facility] [id number] [place] [address] 72402- 6081 Oct, [facility] [id number] [place] [address] 64870- 0758 Aug, OCD (obsessive compulsive disorder) F42 ; Chronic cellulitis L03.90 ; Anxiety F41.9 ; Insomnia G47.00 ; Anemia D64.9 and Asthma J45.909 [facility] [address] [place] [address] 62640- 6453 Aug, [facility] [id number] [place] [address] 17155- 9037 Jul, [facility] [id number] [place] [address] 04631- 4602 Jul, OCD (obsessive compulsive disorder) F42 ; Chronic cellulitis L03.90 ; Anxiety F41.9 ; Insomnia G47.00 and Anemia D64.9 [facility] [address] [place] [address] 93422- 7540 Dec, [facility] [address] [place] [address] 41439- 2192 Dec, [facility] [id number] [place] [address] 60868- 5064 Aug, [facility] [place] [facility] [address] [id number] [place] [address]- 9108 Aug, [facility] [place] [facility] [address] [id number] [place] [address]- 9675 Aug, [facility] [place] [facility] [address] [facility] [id number] [place] [address]- 0615 Aug, [facility] [place] [facility] [address] [id number] [place] [address]- 5524 Aug, [facility] [place] [facility] [address] [id number] [place] [address]- 3640 Aug, [facility] [place] [facility] [address] [id number] [place] [address]- 7448 Aug, [facility] [place] [facility] [address] [id number] [place] [address]- 5198 Jul, [facility] [place] [facility] [address] [id number] [place] [address]- 6593 Jul, [facility] [place] [facility] [address] [id number] [place] [address]- 5589 Jul, [facility] [place] [facility] [address] [facility] [id number] [place] [address]- 9619 Jul, [facility] [place] [facility] [address] [id number] [place] [address]- 0860 Apr, [facility] [place] [facility] [address] [id number] [address]- 6950 Apr, [facility] [place] [facility] [address] [id number] [place] [address]- 6847 Feb, [facility] [place] [facility] [address] [id number] [place] [address]- 3559 Feb, [facility] [place] [facility] [address] [facility] [id number] [place] [address]- 0158 Feb, [facility] [place] [facility] [address] [id number] [place] [address]- 1073 Feb, [facility] [place] [facility] [address] [id number] [place] [address]- 1909 January, [facility] [place] [facility] [address] [id number] [place] [address]- 6198 January, [facility] [place] [facility] [address] [id number] [place] [address]- 3274 January, [facility] [place] [facility] [address] [id number] [place] [address]- 0328 Dec, [facility] [place] [facility] [address] [id number] [place] [address]- 9220 Dec, [facility] [place] [facility] [address] [id number] [place] [address]- 5900 Dec, [facility] [place] [facility] [address] [id number] [place] [address]- 2946 Dec, [facility] [place] [facility] [address] [id number] [place] [address]- 0330 Nov, [facility] [place] [facility] [address] [id number] [place] [address]- 1657 Nov, [facility] [place] [facility] [address] [id number] [place] [address]- 9805 Nov, [facility] [place] [facility] [address] [id number] [place] [address]- 6953 Nov, [facility] [place] [facility] [address] [id number] [place] [address]- 1194 Nov, [facility] [place] [facility] [address] [id number] [place] [address]- 0457 Nov, [facility] [place] [facility] [address] [id number] [place] [address]- 9104 Oct, [facility] [place] [facility] [address] [id number] [place] [address]- 4556 Oct, [facility] [place] [facility] [address] [id number] [place] [address]- 2278 Oct, [facility] [place] [facility] [address] [id number] [place] [address]- 1386 Oct, [facility] [place] [facility] [address] [facility] [id number] [place] [address]- 3146 Oct, [facility] [place] [facility] [address] [id number] [place] [address]- 7556 Oct, [facility] [place] [facility] [address] [id number] [place] [address]- 5405 Oct, [facility] [place] [facility] [address] [facility] [id number] [place] [address]- 8131 Oct, [facility] [place] [facility] [address] [facility] [id number] [place] [address]- 1301 Oct, [facility] [place] [facility] [address] [facility] [id number] [place] [address]- 0600 Oct, [facility] [place] [facility] [address] [facility] [id number] [place] [address]- 8810 Oct, [facility] [place] [facility] [address] [facility] [id number] [place] [address]- 9795 Oct, [facility] [place] [facility] [address] [facility] [id number] [place] [address]- 1688 Sep, [facility] [place] [facility] [address] [facility] [id number] [address]- 8238 Sep, [facility] [place] [facility] [address] [id number] [place] [address]- 9345 Sep, [facility] [place] [facility] [address] [facility] [id number] [place] [address]- 4294 Sep, [facility] [place] [facility] [address] [facility] [id number] [address]- 2054 Aug, [facility] [address] [facility] [id number] [place] [address]- 6267 Aug, [facility] [id number] [address] 1257 Aug, [facility] [id number] [address]- 5921 Aug, [facility] [id number] [address]- 6463 Aug, [facility] [id number] [address]- 0325 Aug, [facility] [address] [facility] [id number] [address]- 8630 Aug, IMMUNIZATIONS No Known Immunizations SOCIAL HISTORY Never Assessed REASON FOR VISIT Controlled Med Refill PLAN OF CARE VITAL SIGNS MEDICATIONS Medication Instructions Dosage Frequency Start Date End Date Duration Status Ventolin HFA 90 MCG/ACT Inhalation every 4 hrs 2 puffs as needed 4h Active Hydrocodone-Acetaminophen 5-325 MG Orally 2 times a day as needed 1 tablet Aug, Active RESULTS No Results PROCEDURES No Known procedures INSTRUCTIONS MEDICATIONS ADMINISTERED No Known Medications MEDICAL (GENERAL) HISTORY Type Description Date Medical History asthma Medical History anxiety Medical History gastric bypass Medical History anemia Medical History sleep apnea treated with biPAP Surgical History gastric bypass 2002 Hospitalization History surgery Hospitalization History anemia Hospitalization History sepsis Hospitalization History Acute hypoxic resp distress--[facility] 07/28/16 Hospitalization History Denies any past psychiatric hospitalization
--- OUTSIDE RECORDS SUMMARY | 2018-10-07 10:35 | XMS REPORT ---
Author Author BRICE RAMIREZ [facility] Address [address] [place] [address] Care Team Providers Care Rail Operator Name Role Phone BRICE RAMIREZ Unavailable PROBLEMS Type Condition ICD9-CM Code SMF37-OF Code Onset Dates Condition Status SNOMED Code Problem Asthma exacerbation J45.901 Active 230802109 Problem Habitual self-excoriation F42.4 Active 495635891 Problem Seasonal allergic rhinitis due to pollen J30.1 Active 38381949 Problem Other obesity due to excess calories E66.09 Active 06934857650138 Problem Body mass index (BMI) of 40.0-44.9 in adult Z68.41 Active 889414264 Problem Adjustment disorder with depressed mood F43.21 Active 65627439 Problem Psychophysiological insomnia F51.04 Active 034372980 Problem Moderate persistent asthma without complication J45.40 Active 333030149 Problem Eating disorder, unspecified F50.9 Active 75411870 Problem Insomnia G47.00 Active 070886945 Problem Anxiety F41.9 Active 14463181 Problem OCD (obsessive compulsive disorder) F42 Active 019225569 Problem Chronic cellulitis L03.90 Active 596818873 Problem SVETLANA treated with BiPAP G47.33 Active 64957572 Problem Iron deficiency anemia, unspecified iron deficiency anemia type D50.9 Active 23082125 Problem Obesity (BMI 30.0-34.9) E66.9 Active 861079642157797 Problem Reactive depression F32.9 Active 54446515 Problem Asthma J45.909 Active 626791126 Problem Other chronic pain G89.29 Active 89186240 ALLERGIES No Information SOCIAL HISTORY Never Assessed PLAN OF CARE VITAL SIGNS MEDICATIONS Medication Instructions Dosage Frequency Start Date End Date Duration Status Hydrocodone-Acetaminophen 5-325 MG Orally BID PRN pain 1 tablet as needed Sep, Active RESULTS No Results PROCEDURES No Known procedures IMMUNIZATIONS No Known Immunizations MEDICAL (GENERAL) HISTORY Type Description Date Medical History asthma Medical History anxiety Medical History gastric bypass Medical History anemia Medical History sleep apnea treated with biPAP Surgical History gastric bypass 2002 Hospitalization History surgery Hospitalization History anemia Hospitalization History sepsis Hospitalization History Acute hypoxic resp distress--[facility] 07/28/16 Hospitalization History Denies any past psychiatric hospitalization
--- OUTSIDE RECORDS SUMMARY | 2018-10-07 10:35 | XMS REPORT ---
Author Author BRICE RAMIREZ Organization [facility] Address [address] [place] [address] Care Team Providers Care Buffet Runner Name Role Phone BRICE RAMIREZ Unavailable PROBLEMS Type Condition ICD9-CM Code IDT00-AU Code Onset Dates Condition Status SNOMED Code Problem Habitual self-excoriation F42.4 Active 122985938 Problem Adjustment disorder with depressed mood F43.21 Active 26389898 Problem Psychophysiological insomnia F51.04 Active 727251586 Problem BMI 45.0-49.9, adult Z68.42 Active 312678749 Problem Chronic cellulitis L03.90 Active 954092773 Problem Severe persistent asthma with acute exacerbation J45.51 Active 720818585 Problem OCD (obsessive compulsive disorder) F42 Active 183356560 Problem Other obesity due to excess calories E66.09 Active [id number] Problem Eating disorder, unspecified F50.9 Active 93500902 Problem Moderate persistent asthma without complication J45.40 Active 807699191 Problem Body mass index (BMI) of 40.0-44.9 in adult Z68.41 Active 166729148 Problem Obesity (BMI 30.0-34.9) E66.9 Active 726984466586427 Problem Asthma J45.909 Active 126979119 Problem Insomnia G47.00 Active 855554956 Problem Anxiety F41.9 Active 86082362 Problem Iron deficiency anemia, unspecified iron deficiency anemia type D50.9 Active 81886168 Problem Other chronic pain G89.29 Active 07034927 Problem SVETLANA treated with BiPAP G47.33 Active 12587121 Problem Asthma exacerbation J45.901 Active 346259156 Problem Reactive depression F32.9 Active 90410019 Problem Seasonal allergic rhinitis due to pollen J30.1 Active 50844977 ALLERGIES No Information ENCOUNTERS Encounter Location Date Diagnosis [facility] [address] [facility] [id number] [address] Dec, [facility] [id number] [place] [address] 75982- 8774 Dec, [facility] [address] [address]- 8[address] Nov, Psychophysiological insomnia F51.04 [facility] [id number] [place] [address] 81662- 3773 Oct, [facility] [address] [address]60- 0716 Oct, Anxiety F41.9 [place] [address] 94280- 8206 Oct, [place] [id number] [place] [address] 82060- 4941 Oct, Severe persistent asthma with acute exacerbation J45.51 ; Tobacco abuse Z72.0 and BMI 45.0-49.9, adult Z68.42 [place] [id number] [place] [address] 01592- 0705 Oct, Psychophysiological insomnia F51.04 [place] [id number] [place] [address] 07755- 8786 Sep, Anxiety F41.9 [place] [id number] [place] [address] 74759- 9129 Sep, Anxiety F41.9 and Habitual self-excoriation F42.4 [place] [id number] [place] [address] 72302- 7603 Sep, Psychophysiological insomnia F51.04 [place] [id number] [place] [address] 16042- 1755 Aug, Anxiety F41.9 [place] [id number] [place] [address] 57291- 3048 Aug, Asthma J45.909 [place] [address] [place] [address]- 7762 Aug, Anxiety F41.9 [facility] [address] 9[address] -[address]84 Aug, Acute bronchitis, unspecified organism J20.9 [facility] [address] 66040- 6488 Aug, Psychophysiological insomnia F51.04 [facility] [address] 19959- 5318 Jul, Therapeutic drug monitoring Z51.81 [place] [address] 99051- 9157 Jul, [facility] [address] 55013- 4768 Jul, Habitual self-excoriation F42.4 [place] [address] 04834- 8094 Jul, [place] [address] 98243- 5234 Jul, [place] [address] 26317- 3042 Jun, SVETLANA treated with BiPAP G47.33 ; Moderate persistent asthma without complication J45.40 ; Anxiety F41.9 ; Other obesity due to excess calories E66.09 ; Body mass index (BMI) of 40.0-44.9 in adult Z68.41 ; Psychophysiological insomnia F51.04 and Encounter for immunization Z23 [facility] [id number] [place] [address] 53178- 9144 Jun, [place] [address] 65177- 1325 Jun, Habitual self-excoriation F42.4 ; Adjustment disorder with depressed mood F43.21 ; Psychophysiological insomnia F51.04 and Eating disorder , unspecified F50.9 [facility] [address] [place] [address]- 6279 Jun, Visit for TB skin test Z11.1 [place] [id number] [place] [address] 67581- 1373 Jun, Habitual self-excoriation F42.4 and Psychophysiological insomnia F51.04 [place] [id number] [place] [address] 27689- 8751 Jun, Asthma J45.909 [place] [id number] [place] [address] 23678- 1061 May, Asthma J45.909 [place] [id number] [place] [address] 05336- 0892 May, [place] [id number] [place] [address] 92559- 6688 May, Habitual self-excoriation F42.4 and Psychophysiological insomnia F51.04 [place] [id number] [place] [address] 93859- 2560 Apr, Habitual self-excoriation F42.4 ; Adjustment disorder with depressed mood F43.21 ; Psychophysiological insomnia F51.04 and Eating disorder , unspecified F50.9 [place] [id number] [place] [address] 84813- 4004 Apr, [place] [id number] [place] [address] 64385- 1912 Apr, Habitual self-excoriation F42.4 ; Adjustment disorder with depressed mood F43.21 ; Psychophysiological insomnia F51.04 and Other retirement (current) drug therapy Z79.899 [place] [id number] [place] [address] 17044- 5822 Mar, [place] [id number] [place] [address] 79865- 3225 Mar, [place] [id number] [place] [address] 74324- 9985 Mar, Anxiety F41.9 [place] [id number] [place] [address] 82943- 5454 Feb, Asthma J45.909 [place] [id number] [place] [address] 44172- 8446 Feb, [place] [id number] [place] [address] 66680- 7733 Feb, Anxiety F41.9 [place] [address] 08040- 1714 Feb, Asthma exacerbation J45.901 and Seasonal allergic rhinitis due to pollen J30.1 [place] [id number] [place] [address] 44810- 2194 January, [place] [id number] [place] [address] 76420- 9338 January, Anxiety F41.9 [place] [id number] [place] [address] 51926- 8040 Dec, Therapeutic drug monitoring Z51.81 [place] [address] 25867- 7149 Dec, Anxiety F41.9 and Asthma J45.909 [place] [id number] [place] [address] 03233- 2634 Nov, Asthma J45.909 [place] [id number] [place] [address] 06369- 2540 Nov, Anxiety F41.9 [place] [id number] [place] [address] 46393- 0575 Oct, Asthma exacerbation J45.901 ; Pain in right knee M25.561 ; Pain in left knee M25.562 and Open wound of eyebrow, left, subsequent encounter S01.102D [place] [id number] [place] [address] 01444- 8714 Oct, [facility] [id number] [place] [address] 57544 -9565 11 Oct, 2016 Other viral agents as the cause of diseases classified elsewhere B97.89 and Acute upper respiratory infection, unspecified J06.9 [facility] [id number] [place] [address] 84148- 6625 10 Oct, 2016 [facility] [id number] [place] [address] 23834- 3183 08 Oct, 2016 [place] [id number] [place] [address] 41109- 4696 02 Oct, 2016 Anxiety F41.9 [place] [id number] [place] [address] 63257- 9505 Sep, [place] [id number] [place] [address] 99471- 0744 Sep, SVETLANA treated with BiPAP G47.33 and Asthma J45.909 [place] [id number] [place] [address] 36065- 5066 Sep, SVETLANA treated with BiPAP G47.33 ; Obesity (BMI 30.0-34.9) E66.9 and Reactive depression F32.9 [place] [id number] [place] [address] 97499- 8514 Sep, Anxiety F41.9 [place] [id number] [place] [address] 45362- 3896 Aug, [place] [id number] [place] [address] 39641- 1231 Aug, Insomnia G47.00 [place] [id number] [place] [address] 03549- 6002 Aug, [place] [id number] [place] [address] 17752- 5001 Aug, SVETLANA treated with BiPAP G47.33 and On supplemental oxygen therapy Z99.81 [facility] [id number] [place] [address] 81570 254 22 Jul, 2016 On supplemental oxygen therapy Z99.81 ; Obesity (BMI 30.0- 34.9) E66.9 and SVETLANA treated with BiPAP G47.33 [facility] [id number] [place] [address] 21558 2546 17 Jul, 2016 Mucus plugging of bronchi J98.09 ; On supplemental oxygen therapy Z99.81 ; Acute midline thoracic back pain M54.6 and SVETLANA treated with BiPAP G47.33 [facility] [id number] [place] [address] 47611- 6651 16 Jul, 2016 [facility] [id number] [place] [address] 91701- 5841 Jul, [facility] [id number] [place] [address] 30014- 4969 Jul, [facility] [id number] [place] [address] 18255- 7253 May, [facility] [id number] [place] [address] 63428- 4115 May, [facility] [id number] [place] [address] 80430- 0247 Apr, [facility] [id number] [place] [address] 40623- 5283 Apr, [facility] [id number] [place] [address] 92859 2549 Apr, Insomnia G47.00 ; Anemia D64.9 ; OCD (obsessive compulsive disorder) F42 ; Anxiety F41.9 ; Asthma J45.909 and Obesity (BMI 30.0-34.9) E66.9 [facility] [id number] [place] [address] 30318- 2546 Feb, [facility] [id number] [place] [address] 42859- 8383 Feb, Insomnia G47.00 [facility] [address] [address]- 0802 Nov, [facility] [id number] [place] [address] 10822- 0831 Nov, [facility] [id number] [place] [address] 84706- 2352 Nov, [facility] [id number] [place] [address] 13047- 7887 Nov, OCD (obsessive compulsive disorder) F42 ; Anxiety F41.9 ; Insomnia G47.00 ; Anemia D64.9 and Asthma J45.909 [facility] [id number] [place] [address] 40512- 9880 Nov, [facility] [id number] [place] [address] 36457- 6748 Oct, [facility] [id number] [place] [address] 56947- 2694 Aug, OCD (obsessive compulsive disorder) F42 ; Chronic cellulitis L03.90 ; Anxiety F41.9 ; Insomnia G47.00 ; Anemia D64.9 and Asthma J45.909 [facility] [address] [place] [address] 90247- 5889 Aug, [facility] [id number] [place] [address] 62921- 2098 Jul, [facility] [address] [place] [address] 16349- 5753 Jul, OCD (obsessive compulsive disorder) F42 ; Chronic cellulitis L03.90 ; Anxiety F41.9 ; Insomnia G47.00 and Anemia D64.9 [facility] [address] [address]- 5107 14 Dec, 2014 [facility] [id number] [place] [address] 94387- 0515 Dec, [facility] [place] [facility] [address] [id number] [place] [address]- 2918 Aug, [facility] [place] [facility] [address] [id number] [place] [address]- 0465 Aug, [facility] [place] [facility] [address] [id number] [place] [address]- 4119 Aug, [facility] [place] [facility] [address] [id number] [place] [address]- 9183 Aug, [facility] [place] [facility] [address] [id number] [place] [address]- 4481 Aug, [facility] [place] [facility] [address] [id number] [place] [address]- 8052 Aug, [facility] [place] [facility] [address] [id number] [place] [address]- 2487 Aug, [facility] [place] [facility] [address] [id number] [place] [address]- 4414 Jul, [facility] [place] [facility] [address] [id number] [place] [address]- 4328 Jul, [facility] [place] [facility] [address] [id number] [place] [address]- 9930 Jul, [facility] [place] [facility] [address] [id number] [place] [address]- 4610 Jul, [facility] [place] [facility] [address] [id number] [place] [address]- 1136 Apr, [facility] [place] [facility] [address] [id number] [place] [address]- 4755 Apr, [facility] [place] [facility] [address] [id number] [place] [address]- 8096 Feb, [facility] [place] [facility] [address] [id number] [place] [address]- 5523 Feb, [facility] [place] [facility] [address] [id number], [place] [address]- 6560 Feb, [facility] [place] [facility] [address] [id number] [place] [address]- 1036 Feb, [facility] [place] [facility] [address] [id number] [place] [address]- 3554 January, [facility] [place] [facility] [address] [id number] [place] [address]- 4897 January, [facility] [place] [facility] [address] [id number] [place] [address]- 9094 January, [facility] [place] [facility] [address] [id number] [place] [address]- 8789 Dec, [facility] [place] [facility] [address] [id number] [place] [address]- 4151 Dec, [facility] [place] [facility] [address] [id number] [place] [address]- 2765 Dec, [facility] [place] [facility] [address] [id number] [place] [address]- 9987 Dec, [facility] [place] [facility] [address] [id number] [place] [address]- 4461 Nov, [facility] [place] [facility] [address] [id number] [place] [address]- 2919 Nov, [facility] [place] [facility] [address] [id number] [place] [address]- 3059 Nov, [facility] [place] [facility] [address] [id number] [place] [address]- 8994 Nov, [facility] [place] [facility] [address] [id number] [place] [address]- 6826 Nov, [facility] [place] [facility] [address] [id number] [place] [address]- 7669 Nov, [facility] [place] [facility] [address] [id number] [place] [address]- 9136 Oct, [facility] [place] [facility] [address] [id number] [place] [address]- 2206 Oct, [facility] [place] [facility] [address] [id number] [place] [address]- 2161 Oct, [facility] [place] [facility] [address] [id number] [place] [address]- 7866 Oct, [facility] [place] [facility] [address] [id number] [place] [address]- 0570 Oct, [facility] [place] [facility] [address] [id number] [place] [address]- 4048 Oct, [facility] [place] [facility] [address] [id number] [place] [address]- 9595 Oct, [facility] [place] [facility] [address] [id number] [place] [address]- 2920 Oct, [facility] [place] [facility] [address] [id number] [place] [address]- 9164 Oct, [facility] [place] [facility] [address] [id number] [place] [address]- 9249 Oct, [facility] [place] [facility] [address] [id number] [place] [address]- 1533 Oct, [facility] [place] [facility] [address] [id number] [place] [address]- 3489 Oct, [facility] [place] [facility] [address] [id number], [place] [address]- 4172 Sep, [facility] [place] [facility] [address] [id number] [place] [address]- 2830 Sep, [facility] [place] [facility] [address] [id number] [place] [address]- 1587 Sep, [facility] [place] [facility] [address] [id number] [place] [address]- 1257 Sep, [facility] [place] [facility] [address] [facility] [id number], [place] [address]- 6884 Aug, [facility] [address] [facility] [id number], [place] [address]- 4129 Aug, [facility] [address] [id number] [address]- 3749 Aug, [facility] [address] [id number] [address]- 2580 Aug, [facility] [address] [id number] [address]- 8996 Aug, [facility] [address] [id number] [address]- 0590 Aug, [facility] [address] [id number] [address]- 9268 Aug, IMMUNIZATIONS No Known Immunizations SOCIAL HISTORY Never Assessed REASON FOR VISIT requesting a returned call PLAN OF CARE VITAL SIGNS MEDICATIONS [...]
--- OUTSIDE RECORDS SUMMARY | 2018-10-07 10:35 | XMS REPORT ---
Author Author BRICE RAMIREZ Organization [facility] [place] [facility] Address [address] [place] [address] Care Team Providers Care Chief Scientific Officer Name Role Phone BRICE RAMIREZ Unavailable PROBLEMS Type Condition ICD9-CM Code LPQ42-OB Code Onset Dates Condition Status SNOMED Code Problem Psychophysiological insomnia F51.04 Active 695670805 Problem Eating disorder, unspecified F50.9 Active 17518014 Problem Adjustment disorder with depressed mood F43.21 Active 55145566 Problem COPD exacerbation J44.1 Active 174815746 Problem Insomnia G47.00 Active 102484855 Problem BMI 45.0-49.9, adult Z68.42 Active 026698813 Problem OCD (obsessive compulsive disorder) F42 Active 587603756 Problem Chronic cellulitis L03.90 Active 151809761 Problem Moderate persistent asthma without complication J45.40 Active 526001380 Problem Body mass index (BMI) of 40.0-44.9 in adult Z68.41 Active 193059496 Problem Severe persistent asthma with acute exacerbation J45.51 Active 179159675 Problem Other obesity due to excess calories E66.09 Active 11333328415938 Problem Obesity (BMI 30.0-34.9) E66.9 Active 772611531873182 Problem SVETLANA treated with BiPAP G47.33 Active 43832611 Problem Anxiety F41.9 Active 31425716 Problem Asthma J45.909 Active 450243838 Problem Iron deficiency anemia, unspecified iron deficiency anemia type D50.9 Active 54444678 Problem Asthma exacerbation J45.901 Active 926743538 Problem Reactive depression F32.9 Active 65823566 Problem Seasonal allergic rhinitis due to pollen J30.1 Active 55347439 Problem Other chronic pain G89.29 Active 45098661 Problem Habitual self-excoriation F42.4 Active 276643117 ALLERGIES No Information ENCOUNTERS Encounter Location Date Diagnosis [facility] [place] [facility] [id number] [place] [address] 80206- 9827 Mar, [place] [address] 6[address]65- 3450 Feb, [place] [address] 16407- 9927 Feb, Anxiety F41.9 and Psychophysiological insomnia F51.04 [place] [address] 85647- 7968 January, Acute pain of left knee M25.562 and BMI 50.0-59.9, adult Z68.43 [place] [address] 79628- 8507 January, [place] [address] 37088- 4918 January, COPD exacerbation J44.1 and Severe persistent asthma with acute exacerbation J45.51 [place] [address] 54294- 2950 January, Anxiety F41.9 and Psychophysiological insomnia F51.04 [place] [address] 81120- 3793 January, COPD exacerbation J44.1 and Left medial knee pain M25.562 [place] [address] 60755- 4360 Dec, COPD with exacerbation J44.1 ; BMI 45.0-49.9, adult Z68.42 ; SVETLANA treated with BiPAP G47.33 and Psychophysiological insomnia F51.04 [place] [id number] [place] [address] 30037- 1307 Dec, [place] [address] 55252- 3189 Dec, Acute pain of left knee M25.562 ; Unspecified fall, initial encounter W19.XXXA ; Unspecified place in unspecified non-institutional (private ) residence as the place of occurrence of the external cause Y92.009 ; BMI 45.0- 49.9, adult Z68.42 and Severe persistent asthma with acute exacerbation J45.51 [place] [id number] [place] [address] 68937- 0347 Dec, Anxiety F41.9 and Psychophysiological insomnia F51.04 [place] [id number] [place] [address] 62512- 1449 Nov, Psychophysiological insomnia F51.04 [place] [address] 97957- 3582 Oct, [place] [address] 50510- 9462 Oct, Anxiety F41.9 [place] [address] 85562- 9294 Oct, [place] [address] 63021- 7345 Oct, Severe persistent asthma with acute exacerbation J45.51 ; Tobacco abuse Z72.0 and BMI 45.0-49.9, adult Z68.42 [place] [id number] [place] [address] 08140- 0374 Oct, Psychophysiological insomnia F51.04 [place] [id number] [place] [address] 30655- 8636 Sep, Anxiety F41.9 [place] [id number] [place] [address] 17518- 3721 Sep, Anxiety F41.9 and Habitual self-excoriation F42.4 [place] [address] 60005- 8501 Sep, Psychophysiological insomnia F51.04 [place] [id number] [place] [address] 35897- 2676 Aug, Anxiety F41.9 [place] [id number] [place] [address] 57726- 2328 Aug, Asthma J45.909 [facility] [place] [facility] [address] 64920- 4886 Aug, Anxiety F41.9 [facility] [id number] [place] [address] 63119 -5418 Aug, Acute bronchitis, unspecified organism J20.9 [facility] [place] [facility] [address] 89636- 4425 Aug, Psychophysiological insomnia F51.04 [place] [address] 23077- 0953 Jul, Therapeutic drug monitoring Z51.81 [place] [address] 14911- 4284 Jul, [place] [address] 56695- 4307 Jul, Habitual self-excoriation F42.4 [place] [address] 26479- 2513 Jul, [place] [address] 92787- 3038 Jul, [place] [id number] [place] [address] 50612- 2368 Jun, SVETLANA treated with BiPAP G47.33 ; Moderate persistent asthma without complication J45.40 ; Anxiety F41.9 ; Other obesity due to excess calories E66.09 ; Body mass index (BMI) of 40.0-44.9 in adult Z68.41 ; Psychophysiological insomnia F51.04 and Encounter for immunization Z23 [place] [id number] [place] [address] 63850- 9117 Jun, [place] [id number] [place] [address] 32773- 8238 Jun, Habitual self-excoriation F42.4 ; Adjustment disorder with depressed mood F43.21 ; Psychophysiological insomnia F51.04 and Eating disorder , unspecified F50.9 [place] [id number] [place] [address] 39493- 2624 Jun, Visit for TB skin test Z11.1 [place] [id number] [place] [address] 22209- 4174 Jun, Habitual self-excoriation F42.4 and Psychophysiological insomnia F51.04 [place] [id number] [place] [address] 37370- 5695 Jun, Asthma J45.909 [place] [address] 26610- 6692 May, Asthma J45.909 [place] [address] 32771- 5145 May, [place] [address] 59295- 9035 May, Habitual self-excoriation F42.4 and Psychophysiological insomnia F51.04 [place] [id number] [place] [address] 36501- 4025 Apr, Habitual self-excoriation F42.4 ; Adjustment disorder with depressed mood F43.21 ; Psychophysiological insomnia F51.04 and Eating disorder , unspecified F50.9 [place] [id number] [place] [address] 15758- 2997 Apr, [place] [id number] [place] [address] 28878- 2948 Apr, Habitual self-excoriation F42.4 ; Adjustment disorder with depressed mood F43.21 ; Psychophysiological insomnia F51.04 and Other care home (current) drug therapy Z79.899 [place] [id number] [place] [address] 76414- 9133 Mar, [place] [address] [place] [address]- 8830 Mar, [facility] [facility] [id number] [place] [address] 34738- 6280 Mar, Anxiety F41.9 [facility] [facility] [id number] [place] [address] 87803- 0769 Feb, Asthma J45.909 [place] [address] 00607- 3266 Feb, [place] [id number] [place] [address] 17065- 3932 Feb, Anxiety F41.9 [place] [id number] [place] [address] 86886- 9203 Feb, Asthma exacerbation J45.901 and Seasonal allergic rhinitis due to pollen J30.1 [place] [address] 78160- 2558 January, [place] [id number] [place] [address] 46700- 5980 January, Anxiety F41.9 [place] [id number] [place] [address] 57103- 6316 Dec, Therapeutic drug monitoring Z51.81 [place] [id number] [place] [address] 80262- 7532 Dec, Anxiety F41.9 and Asthma J45.909 [place] [id number] [place] [address] 20603- 3684 Nov, Asthma J45.909 [place] [id number] [place] [address] 64704- 9132 Nov, Anxiety F41.9 [place] [address] [place] [address] 19703- 1872 Oct, Asthma exacerbation J45.901 ; Pain in right knee M25.561 ; Pain in left knee M25.562 and Open wound of eyebrow, left, subsequent encounter S01.102D [facility] [facility] [id number] [place] [address] 17742- 3657 16 Oct, 2016 [facility] [address] 96245 -4615 11 Oct, 2016 Other viral agents as the cause of diseases classified elsewhere B97.89 and Acute upper respiratory infection, unspecified J06.9 [place] [address] 65405- 1632 10 Oct, 2016 [place] [address] 99948- 3001 Oct, [place] [address] 78520- 6042 02 Oct, 2016 Anxiety F41.9 [place] [address] 84761- 3453 Sep, [place] [id number] [place] [address] 43337- 4827 Sep, SVETLANA treated with BiPAP G47.33 and Asthma J45.909 [place] [address] 14942- 1909 Sep, SVETLANA treated with BiPAP G47.33 ; Obesity (BMI 30.0-34.9) E66.9 and Reactive depression F32.9 [place] [id number] [place] [address] 06370- 4900 Sep, Anxiety F41.9 [place] [id number] [place] [address] 04442- 0180 Aug, [place] [address] 69468- 7069 Aug, Insomnia G47.00 [place] [address] 53606- 9322 Aug, [place] [id number] [place] [address] 07639- 1984 Aug, SVETLANA treated with BiPAP G47.33 and On supplemental oxygen therapy Z99.81 [facility] [place] [facility] [id number] [place] [address] 86694- 5761 Jul, On supplemental oxygen therapy Z99.81 ; Obesity (BMI 30.0- 34.9) E66.9 and SVETLANA treated with BiPAP G47.33 [place] [address] 79847- 9863 17 Jul, 2016 Mucus plugging of bronchi J98.09 ; On supplemental oxygen therapy Z99.81 ; Acute midline thoracic back pain M54.6 and SVETLANA treated with BiPAP G47.33 [facility] [facility] [id number] [place] [address] 79040- 2560 16 Jul, 2016 [place] [address] 53393- 2366 Jul, [place] [id number] [place] [address] 03972- 9895 Jul, [facility] [place] [facility] [address] 88633- 4453 May, [place] [id number] [place] [address] 07680- 3281 May, [facility] [place] [facility] [id number] [place] [address] 07996- 2996 Apr, [facility] [place] [facility] [id number] [place] [address] 18067- 1622 Apr, [facility] [facility] [address] 57902- 4024 Apr, Insomnia G47.00 ; Anemia D64.9 ; OCD (obsessive compulsive disorder) F42 ; Anxiety F41.9 ; Asthma J45.909 and Obesity (BMI 30.0-34.9) E66.9 [facility] [facility] [address] [place] [address]- 6739 Feb, [facility] [facility] [id number] [place] [address] 92395- 3076 Feb, Insomnia G47.00 [facility] [facility] [id number] [place] [address] 20253- 5797 Nov, [facility] [place] [facility] [id number] [place] [address] 95603- 1361 Nov, [facility] [facility] [address] 86928- 2592 Nov, [facility] [facility] [address] 46846- 6572 Nov, OCD (obsessive compulsive disorder) F42 ; Anxiety F41.9 ; Insomnia G47.00 ; Anemia D64.9 and Asthma J45.909 [place] [address] 81359- 8661 Nov, [facility] [facility] [id number] [place] [address] 09281- 5225 Oct, [facility] [place] [facility] [id number] [place] [address] 11749- 5185 Aug, OCD (obsessive compulsive disorder) F42 ; Chronic cellulitis L03.90 ; Anxiety F41.9 ; Insomnia G47.00 ; Anemia D64.9 and Asthma J45.909 [facility] [facility] [id number] [place] [address] 97825- 9161 Aug, [facility] [facility] [id number] [place] [address] 75660- 8189 Jul, [facility] [place] [facility] [id number] [place] [address] 56749- 7436 Jul, OCD (obsessive compulsive disorder) F42 ; Chronic cellulitis L03.90 ; Anxiety F41.9 ; Insomnia G47.00 and Anemia D64.9 [facility] [facility] [id number] [place] [address] 80992- 4282 14 Dec, 2014 [facility] [place] [facility] [address] [id number] [place] [address]- 2204 13 Dec, 2014 [facility] [place] [facility] [address] [id number] [place] [address]- 6605 Aug, [facility] [place] [facility] [address] [facility] [id number] [place] [address]- 8686 Aug, [facility] [place] [facility] [address] [id number] [place] [address]- 8676 14 Aug, 2014 [facility] [place] [facility] [address] [id number] [place] [address]- 1289 Aug, [facility] [place] [facility] [address] [id number] [place] [address]- 8156 Aug, [facility] [place] [facility] [address] [address] [id number] [place] [address]- 5509 Aug, [facility] [place] [facility] [address] [id number] [place] [address]- 2227 Aug, [facility] [place] [facility] [address] [id number] [place] [address]- 6999 Jul, [facility] [place] [facility] [address] [facility] [id number] [place] [address]- 5190 Jul, [facility] [place] [facility] [address] [id number] [place] [address]- 1496 Jul, [facility] [place] [facility] [address] [id number] [address]- 4845 Jul, [facility] [place] [facility] [address] [id number] [place] [address]- 0735 Apr, [facility] [place] [facility] [address] [id number] [place] [address]- 8853 Apr, [facility] [place] [facility] [address] [facility] [id number] [place] [address]- 4361 Feb, [facility] [place] [facility] [address] [id number] [place] [address]- 7512 Feb, [facility] [place] [facility] [address] [id number] [place] [address]- 0957 Feb, [facility] [place] [facility] [address] [id number] [place] [address]- 0036 Feb, [facility] [place] [facility] [address] [id number] [place] [address]- 3239 January, [facility] [place] [facility] [address] [id number] [place] [address]- 1159 January, [facility] [place] [facility] [address] [id number] [place] [address]- 8855 January, [facility] [place] [facility] [address] [id number] [place] [address]- 9753 Dec, [facility] [place] [facility] [address] [id number] [place] [address]- 6238 Dec, [facility] [place] [facility] [address] [id number] [place] [address]- 0632 Dec, [facility] [place] [facility] [address] [id number] [place] [address]- 4267 Dec, [facility] [place] [facility] [address] [id number] [place] [address]- 1784 Nov, [facility] [place] [facility] [address] [id number] [place] [address]- 5137 Nov, [facility] [place] [facility] [address] [id number] [place] [address]- 6164 Nov, [facility] [place] [facility] [address] [id number] [place] [address]- 6266 Nov, [facility] [place] [facility] [address] [id number] [place] [address]- 1754 Nov, [facility] [place] [facility] [address] [id number] [place] [address]- 8302 Nov, [facility] [place] [facility] [address] [id number] [place] [address]- 7276 Oct, [facility] [place] [facility] [address] [id number] [place] [address]- 2496 Oct, [facility] [place] [facility] [address] [facility] [id number] [place] [address]- 4409 Oct, [facility] [place] [facility] [address] [id number] [place] [address]- 5510 Oct, [facility] [place] [facility] [address] [id number] [place] [address]- 3150 Oct, [facility] [place] [facility] [address] [facility] [id number] [place] [address]- 8350 Oct, [facility] [place] [facility] [address] [facility] [id number] [place] [address]- 0511 Oct, [facility] [place] [facility] [address] [facility] [id number] [place] [address]- 9271 Oct, [facility] [place] [facility] [address] [facility] [id number] [place] [address]- 2505 Oct, [facility] [place] [facility] [address] [facility] [id number] [place] [address]- 1591 Oct, [facility] [place] [facility] [address] [facility] [id number] [place] [address]- 8770 Oct, [facility] [place] [facility] [address] [facility] [id number] [place] [address]- 2400 Oct, [facility] [place] [facility] [address] [facility] [id number] [place] [address]- 8422 Sep, [facility] [place] [facility] [address] [facility] [id number] [place] [address]- 5732 Sep, [facility] [place] [facility] [address] [facility] [id number], [place] [address]- 0383 Sep, [facility] [place] [facility] [address] [id number] [address]- 8340 Sep, [facility] [place] [facility] [address] [id number] [address]- 3024 Aug, [facility] [place] [facility] [address] 0959 Aug, [facility] [place] [facility] [address] [address]- 5109 Aug, [facility] [place] [facility] [address] 6253 Aug, [facility] [place] [facility] [address] 2784 Aug, [facility] [place] [facility] [address], [place] [address]- 5778 Aug, [facility] [place] [facility] [address] [id number], [place] [address]- 1453 Aug, IMMUNIZATIONS No Known Immunizations SOCIAL HISTORY Never Assessed REASON FOR VISIT Controlled Med Refill PLAN OF CARE VITAL SIGNS MEDICATIONS Medication Instructions Dosage Frequency Start Date End Date Duration Status Hydrocodone-Acetaminophen 5-325 MG Orally 2 times a day as needed 1 tablet Sep, Active Celexa 20 mg Orally BID 1 tab in AM and 1/2 tab in PM 12h 30 days Active RESULTS No Results PROCEDURES No Known procedures INSTRUCTIONS MEDICATIONS ADMINISTERED No Known Medications MEDICAL (GENERAL) HISTORY Type Description Date Medical History asthma Medical History anxiety Medical History gastric bypass Medical History anemia Medical History sleep apnea treated with biPAP Surgical History gastric bypass 2002 Hospitalization History surgery Hospitalization History anemia Hospitalization History sepsis Hospitalization History Acute hypoxic resp distress--[facility] 07/28/16 Hospitalization History Denies any past psychiatric hospitalization
--- OUTSIDE RECORDS SUMMARY | 2018-10-07 10:35 | XMS REPORT ---
Author Author BRICE RAMIREZ Organization [facility] Address [address] [place] [address] Care Team Providers Care Director Of Sales And Marketing Name Role Phone BRICE RAMIREZ Unavailable PROBLEMS Type Condition ICD9-CM Code IIS58-CB Code Onset Dates Condition Status SNOMED Code Problem Other chronic pain G89.29 Active 19013083 Problem Reactive depression F32.9 Active 51953627 Problem Iron deficiency anemia, unspecified iron deficiency anemia type D50.9 Active 58719004 Problem Eating disorder, unspecified F50.9 Active 84523784 Problem Adjustment disorder with depressed mood F43.21 Active 06239753 Problem Seasonal allergic rhinitis due to pollen J30.1 Active 90517220 Problem Asthma exacerbation J45.901 Active 154841338 Problem Psychophysiological insomnia F51.04 Active 357640170 Problem Habitual self-excoriation F42.4 Active 161174652 Problem Chronic cellulitis L03.90 Active 364064368 Problem OCD (obsessive compulsive disorder) F42 Active 475460563 Problem Obesity (BMI 30.0-34.9) E66.9 Active 215094378229113 Problem Insomnia G47.00 Active 415995665 Problem Asthma J45.909 Active 736435615 Problem Anxiety F41.9 Active 44648404 Problem SVETLANA treated with BiPAP G47.33 Active 91820638 ALLERGIES No Information SOCIAL HISTORY Never Assessed PLAN OF CARE VITAL SIGNS MEDICATIONS Medication Instructions Dosage Frequency Start Date End Date Duration Status Symbicort 160-4.5 mcg/actuation Inhalation Twice a day 2 puffs 12h 27 Oct, 2013 Active RESULTS No Results PROCEDURES No Known procedures IMMUNIZATIONS No Known Immunizations MEDICAL (GENERAL) HISTORY Type Description Date Medical History asthma Medical History anxiety Medical History gastric bypass Medical History anemia Medical History sleep apnea treated with biPAP Surgical History gastric bypass 2002 Hospitalization History surgery Hospitalization History anemia Hospitalization History sepsis Hospitalization History Acute hypoxic resp distress--[facility] 07/28/16 Hospitalization History Denies any past psychiatric hospitalization
--- OUTSIDE RECORDS SUMMARY | 2018-10-07 10:36 | XMS REPORT ---
Author Author BRICE RAMIREZ Organization [facility] Address [address] [place] [address] Care Team Providers Care Customer Support Assistant Name Role Phone BRICE RAMIREZ Unavailable PROBLEMS Type Condition ICD9-CM Code SHG88-ST Code Onset Dates Condition Status SNOMED Code Problem Psychophysiological insomnia F51.04 Active 305885972 Problem Eating disorder, unspecified F50.9 Active 09271711 Problem Adjustment disorder with depressed mood F43.21 Active 52538099 Problem COPD exacerbation J44.1 Active 924321226 Problem Insomnia G47.00 Active 032049232 Problem BMI 45.0-49.9, adult Z68.42 Active 616084988 Problem OCD (obsessive compulsive disorder) F42 Active 394819532 Problem Chronic cellulitis L03.90 Active 368874473 Problem Moderate persistent asthma without complication J45.40 Active 020140647 Problem Body mass index (BMI) of 40.0-44.9 in adult Z68.41 Active 241464862 Problem Severe persistent asthma with acute exacerbation J45.51 Active 306109003 Problem Other obesity due to excess calories E66.09 Active 83247341079642 Problem Obesity (BMI 30.0-34.9) E66.9 Active 605337468295511 Problem SVETLANA treated with BiPAP G47.33 Active 58912143 Problem Anxiety F41.9 Active 84133968 Problem Asthma J45.909 Active 883920277 Problem Iron deficiency anemia, unspecified iron deficiency anemia type D50.9 Active 34382432 Problem Asthma exacerbation J45.901 Active 976952179 Problem Reactive depression F32.9 Active 53488714 Problem Seasonal allergic rhinitis due to pollen J30.1 Active 15716372 Problem Other chronic pain G89.29 Active 67072182 Problem Habitual self-excoriation F42.4 Active 869345563 ALLERGIES No Information ENCOUNTERS Encounter Location Date Diagnosis [facility] [id number] [place] [address] 68918- 5217 January, Acute pain of left knee M25.562 and BMI 50.0-59.9, adult Z68.43 [facility] [id number] [place] [address] 03739- 4447 January, [facility] [id number] [place] [address] 94470- 0946 January, COPD exacerbation J44.1 and Severe persistent asthma with acute exacerbation J45.51 [facility] [id number] [place] [address] 34506- 8384 January, Anxiety F41.9 and Psychophysiological insomnia F51.04 [facility] [address] 34665- 4172 January, COPD exacerbation J44.1 and Left medial knee pain M25.562 [facility] [address] 38386- 6564 Dec, COPD with exacerbation J44.1 ; BMI 45.0-49.9, adult Z68.42 ; SVETLANA treated with BiPAP G47.33 and Psychophysiological insomnia F51.04 [facility] [id number] [place] [address] 15843- 2731 Dec, [facility] [id number] [place] [address] 85476- 7223 Dec, Acute pain of left knee M25.562 ; Unspecified fall, initial encounter W19.XXXA ; Unspecified place in unspecified non-institutional (private ) residence as the place of occurrence of the external cause Y92.009 ; BMI 45.0- 49.9, adult Z68.42 and Severe persistent asthma with acute exacerbation J45.51 [facility] [id number] [place] [address] 83620- 8079 Dec, Anxiety F41.9 and Psychophysiological insomnia F51.04 [facility] [id number] [place] [address] 83084- 0418 Nov, Psychophysiological insomnia F51.04 [facility] [id number] [place] [address] 05985- 1703 Oct, [facility] [id number] [place] [address] 92497- 4371 Oct, Anxiety F41.9 [facility] [id number] [place] [address] 60154- 6431 Oct, [facility] [id number] [place] [address] 63080- 4807 Oct, Severe persistent asthma with acute exacerbation J45.51 ; Tobacco abuse Z72.0 and BMI 45.0-49.9, adult Z68.42 [facility] [id number] [place] [address] 45613- 1051 Oct, Psychophysiological insomnia F51.04 [facility] [address] 32013- 1637 Sep, Anxiety F41.9 [facility] [id number] [place] [address] 95836- 0856 Sep, Anxiety F41.9 and Habitual self-excoriation F42.4 [facility] [id number] [place] [address] 96430- 7315 Sep, Psychophysiological insomnia F51.04 [facility] [id number] [place] [address] 92364- 3953 Aug, Anxiety F41.9 [facility] [id number] [place] [address] 10508- 4508 Aug, Asthma J45.909 [facility] [id number] [place] [address] 40685- 4191 Aug, Anxiety F41.9 [facility] [id number] [place] [address] 74902 -5177 Aug, Acute bronchitis, unspecified organism J20.9 [facility] [id number] [place] [address] 47316- 2513 Aug, Psychophysiological insomnia F51.04 [facility] [address] 50691- 6331 Jul, Therapeutic drug monitoring Z51.81 [facility] [address] 74608- 7460 Jul, [facility] [address] 15455- 9103 Jul, Habitual self-excoriation F42.4 [facility] [address] 40744- 4974 08 Jul, 2017 [facility] [address] 48274- 9404 Jul, [facility] [address] 40714- 9486 Jun, SVETLANA treated with BiPAP G47.33 ; Moderate persistent asthma without complication J45.40 ; Anxiety F41.9 ; Other obesity due to excess calories E66.09 ; Body mass index (BMI) of 40.0-44.9 in adult Z68.41 ; Psychophysiological insomnia F51.04 and Encounter for immunization Z23 [facility] [id number] [place] [address] 83107- 2035 Jun, [facility] [id number] [place] [address] 60901- 2133 Jun, Habitual self-excoriation F42.4 ; Adjustment disorder with depressed mood F43.21 ; Psychophysiological insomnia F51.04 and Eating disorder , unspecified F50.9 [facility] [id number] [place] [address] 50093- 2777 Jun, Visit for TB skin test Z11.1 [facility] [id number] [place] [address] 48181- 8854 Jun, Habitual self-excoriation F42.4 and Psychophysiological insomnia F51.04 [facility] [id number] [place] [address] 80118- 2667 Jun, Asthma J45.909 [facility] [id number] [place] [address] 76964- 2824 May, [address] J45.909 [facility] [id number] [place] [address] 74196- 2534 May, [facility] [id number] [place] [address] 27680- 7357 May, Habitual self-excoriation F42.4 and Psychophysiological insomnia F51.04 [facility] [id number] [place] [address] 51630- 9303 Apr, Habitual self-excoriation F42.4 ; Adjustment disorder with depressed mood F43.21 ; Psychophysiological insomnia F51.04 and Eating disorder , unspecified F50.9 [facility] [id number] [place] [address] 44747- 5275 Apr, [facility] [id number] [place] [address] 52749- 6011 Apr, Habitual self-excoriation F42.4 ; Adjustment disorder with depressed mood F43.21 ; Psychophysiological insomnia F51.04 and Other alf (current) drug therapy Z79.899 [facility] [id number] [place] [address] 12862- 3622 Mar, [facility] [id number] [place] [address] 53620- 9951 Mar, [facility] [id number] [place] [address] 28569- 9550 Mar, Anxiety F41.9 [facility] [id number] [place] [address] 47127- 5544 Feb, Ast[address] J45.909 [facility] [address] [address] 75606- 9418 Feb, [place] [address] 74546- 0709 Feb, Anxiety F41.9 [facility] [address] 78643- 6086 Feb, Asthma exacerbation J45.901 and Seasonal allergic rhinitis due to pollen J30.1 [facility] [address] 08600- 0118 January, [facility] [address] 61347- 5330 January, Anxiety F41.9 [facility] [address] 50516- 4175 Dec, Therapeutic drug monitoring Z51.[address] 16666- 2086 Dec, Anxiety F41.9 and Asthma J45.909 [facility] [address] 12429- 7710 Nov, Asthma J45.909 [facility] [address] 70127- 6869 Nov, Anxiety F41.9 [facility] [id number] [place] [address] 19193- 2277 Oct, Asthma exacerbation J45.901 ; Pain in right knee M25.561 ; Pain in left knee M25.562 and Open wound of eyebrow, left, subsequent encounter S01.102D [facility] [address] 82030- 6399 16 Oct, 2016 [facility] [id number] [place] [address] 04993 -0304 Oct, Other viral agents as the cause of diseases classified elsewhere B97.89 and Acute upper respiratory infection, unspecified J06.9 [facility] [id number] [place] [address] 33860- 3057 10 Oct, 2016 [facility] [id number] [place] [address] 89787- 1316 08 Oct, 2016 [facility] [id number] [place] [address] 75236- 2432 02 Oct, 2016 Anxiety F41.9 [facility] [address] 30682- 3980 Sep, [facility] [id number] [place] [address] 34851- 3210 Sep, SVETLANA treated with BiPAP G47.33 and Asthma J45.909 [facility] [id number] [place] [address] 51978- 6833 Sep, SVETLANA treated with BiPAP G47.33 ; Obesity (BMI 30.0-34.9) E66.9 and Reactive depression F32.9 [facility] [id number] [place] [address] 94366- 0002 Sep, Anxiety F41.9 [facility] [id number] [place] [address] 82754- 9572 Aug, [facility] [id number] [place] [address] 11509- 7853 Aug, Insomnia G47.00 [facility] [id number] [place] [address] 47005 2542 Aug, [facility] [id number] [place] [address] 84241- 2548 Aug, SVETLANA treated with BiPAP G47.33 and On supplemental oxygen therapy Z99.81 [facility] [id number] [place] [address] 06094- 2543 Jul, On supplemental oxygen therapy Z99.81 ; Obesity (BMI 30.0- 34.9) E66.9 and SVETLANA treated with BiPAP G47.33 [facility] [id number] [place] [address] 24672- 7307 17 Jul, 2016 Mucus plugging of bronchi J98.09 ; On supplemental oxygen therapy Z99.81 ; Acute midline thoracic back pain M54.6 and SVETLANA treated with BiPAP G47.33 [facility] [id number] [place] [address] 41780- 0371 16 Jul, 2016 [facility] [address] 30102- 7258 Jul, [facility] [id number] [place] [address] 52173- 2630 Jul, [facility] [address] 81071- 3004 May, [facility] [address] 75845- 1016 May, [facility] [id number] [place] [address] 09762- 6188 Apr, [facility] [id number] [place] [address] 34867- 0455 Apr, [facility] [id number] [place] [address] 43770- 2098 Apr, Insomnia G47.00 ; Anemia D64.9 ; OCD (obsessive compulsive disorder) F42 ; Anxiety F41.9 ; Asthma J45.909 and Obesity (BMI 30.0-34.9) E66.9 [facility] [id number] [place] [address] 57203- 7765 Feb, [facility] [address] 91355- 8430 Feb, Insomnia G47.00 [facility] [id number] [place] [address] 58801- 6680 Nov, [facility] [address] 56071- 2167 15 Nov, 2015 [facility] [address] [place] [address] 65737- 7943 Nov, [facility] [id number] [place] [address] 43741- 9237 Nov, OCD (obsessive compulsive disorder) F42 ; Anxiety F41.9 ; Insomnia G47.00 ; Anemia D64.[address] [facility] [id number] [place] [address] 05727- 9810 Nov, [facility] [id number] [place] [address] 79817- 6118 Oct, [facility] [id number] [place] [address] 17859- 0370 Aug, OCD (obsessive compulsive disorder) F42 ; Chronic cellulitis L03.90 ; Anxiety F41.9 ; Insomnia G47.00 ; Anemia D64.[address] [facility] [address] [place] [address] 74111- 6545 Aug, [facility] [id number] [place] [address] 78504- 5768 Jul, [facility] [id number] [place] [address] 57180- 4094 Jul, OCD (obsessive compulsive disorder) F42 ; Chronic cellulitis L03.90 ; Anxiety F41.9 ; Insomnia G47.[address] [facility] [address] [address]- 7633 Dec, [facility] [id number] [place] [address] 78404- 7334 Dec, [facility] [id number] [place] [address] 12196- 6204 Aug, [facility] [id number] [place] [address] 06904- 3975 Aug, [facility] [place] [facility] [address] [id number] [place] [address]- 2545 Aug, [facility] [place] [facility] [address] [id number] [place] [address]- 1242 Aug, [facility] [place] [facility] [address] [id number] [place] [address]- 3148 Aug, [facility] [place] [facility] [address] [id number] [place] [address]- 5541 Aug, [facility] [place] [facility] [address] [id number] [place] [address]- 5906 Aug, [facility] [place] [facility] [address] [id number] [place] [address]- 2897 Jul, [facility] [place] [facility] [address] [id number] [place] [address]- 6059 Jul, [facility] [place] [facility] [address] [id number] [place] [address]- 8739 Jul, [facility] [place] [facility] [address] [id number] [place] [address]- 8075 Jul, [facility] [place] [facility] [address] [id number] [place] [address]- 8458 Apr, [facility] [place] [facility] [address] [id number] [place] [address]- 4101 Apr, [facility] [place] [facility] [address] [id number] [address]- 6233 Feb, [facility] [place] [facility] [address] [id number] [place] [address]- 1525 Feb, [facility] [place] [facility] [address] [id number] [place] [address]- 6306 Feb, [facility] [place] [facility] [address] [id number] [place]- 2302 Feb, [facility] [place] [facility] [address] [id number] [address]- 5281 January, [facility] [address] [id number] [place] [address]- 5063 January, [facility] [place] [facility] [address] [id number] [place] [address]- 4236 January, [facility] [place] [facility] [address] [id number] [place] [address]- 2122 Dec, [facility] [place] [facility] [address] [id number] [place] [address]- 6477 Dec, [facility] [place] [facility] [address] [id number] [place] [address]- 9308 Dec, [facility] [place] [facility] [address] [id number] [place] [address]- 7673 Dec, [facility] [place] [facility] [address] [id number] [place] [address]- 9260 Nov, [facility] [place] [facility] [address] [id number] [place] [address]- 2186 Nov, [facility] [place] [facility] [address] [id number] [place] [address]- 6441 Nov, [facility] [place] [facility] [address] [id number] [place] [address]- 8036 Nov, [facility] [place] [facility] [address] [id number] [place] [address]- 5664 Nov, [facility] [place] [facility] [address] [id number] [place] [address]- 1936 Nov, [facility] [place] [facility] [address] [id number] [place] [address]- 6235 Oct, [facility] [place] [facility] [address] [id number] [place] [address]- 0209 Oct, [facility] [place] [facility] [address] [id number] [place] [address]- 9373 Oct, [facility] [place] [facility] [address] [id number] [place] [address]- 0343 Oct, [facility] [place] [facility] [address] [id number] [place] [address]- 3536 Oct, [facility] [place] [facility] [address] [id number] [place] [address]- 0296 Oct, [facility] [place] [facility] [address] [id number] [place] [address]- 0916 Oct, [facility] [place] [facility] [address] [id number] [place] [address]- 7906 Oct, [facility] [place] [facility] [address] [id number] [place] [address]- 6166 Oct, [facility] [place] [facility] [address] [id number] [place] [address]- 9573 Oct, [facility] [place] [facility] [address] [id number] [place] [address]- 5061 Oct, [facility] [place] [facility] [address] [id number] [place] [address]- 0473 Oct, [facility] [place] [facility] [address] [id number] [place] [address]- 2903 Sep, [facility] [place] [facility] [address] [id number] [place] [address]- 6045 Sep, [facility] [place] [facility] [address] [id number] [place] [address]- 9686 Sep, [facility] [place] [facility] [address] [id number] [place] [address]- 5721 Sep, [facility] [place] [facility] [address] [id number] [place] [address]- 4396 Aug, [facility] [place] [facility] [address] [id number] [place] [address]- 5066 Aug, [facility] [place] [facility] [address] [facility] [id number] [place] [address]- 5663 Aug, [facility] [address] [facility] [id number] [address]- 5141 Aug, [facility] [address] [facility] [id number] [address]- 3961 Aug, [facility] [address] [facility] [id number] [place] [address]- 0573 Aug, [facility] [address] [facility] [id number] [place] [address]- 8281 Aug, IMMUNIZATIONS No Known Immunizations SOCIAL HISTORY Never Assessed REASON FOR VISIT Controlled Refill Request PLAN OF CARE VITAL SIGNS MEDICATIONS Medication Instructions Dosage Frequency Start Date End Date Duration Status Hydrocodone-Acetaminophen 5-325 MG Orally 2 times a day as needed 1 tablet Jul, Active RESULTS No Results PROCEDURES No Known [...]
--- OUTSIDE RECORDS SUMMARY | 2018-10-07 10:36 | XMS REPORT ---
Author Author SATHYA VALDES [facility] [employer] Address Unknown Phone Unavailable Care Team Providers Care Slag Motor Operator Name Role Phone SATHYA VALDES Unavailable Allergies No Known Allergies Problems Problem Type Condition Code Onset Dates Condition Status Problem Chronic cellulitis L03.90 Active Problem Anxiety F41.9 Active Problem OCD (obsessive compulsive disorder) F42 Active Problem Insomnia G47.00 Active Problem Anemia D64.9 Active Medications Medication Code System Code Instructions Start Date End Date Status Dosage Ambien [facility] [address]-02 10 MG Orally Once a day Aug 09, 2015 1 tablet at bedtime as needed Results No Known Results Summary Purpose eClinicalWorks Submission
--- OUTSIDE RECORDS SUMMARY | 2018-10-07 10:36 | XMS REPORT ---
Author Author BRICE RAMIREZ Organization [facility] Address [address] [place] [address] Care Team Providers Care Punchboard Filling Machine Operator Name Role Phone BRICE RAMIREZ Unavailable PROBLEMS Type Condition ICD9-CM Code MGE52-UX Code Onset Dates Condition Status SNOMED Code Problem Other chronic pain G89.29 Active 18836191 Problem Reactive depression F32.9 Active 37169058 Problem Iron deficiency anemia, unspecified iron deficiency anemia type D50.9 Active 83639014 Problem Eating disorder, unspecified F50.9 Active 16861736 Problem Adjustment disorder with depressed mood F43.21 Active 30711492 Problem Seasonal allergic rhinitis due to pollen J30.1 Active 93252491 Problem Asthma exacerbation J45.901 Active 677457436 Problem Psychophysiological insomnia F51.04 Active 058989261 Problem Habitual self-excoriation F42.4 Active 298165523 Problem Chronic cellulitis L03.90 Active 534060086 Problem OCD (obsessive compulsive disorder) F42 Active 400039417 Problem Obesity (BMI 30.0-34.9) E66.9 Active 302062967375294 Problem Insomnia G47.00 Active 218227786 Problem Asthma J45.909 Active 027504244 Problem Anxiety F41.9 Active 96610591 Problem SVETLANA treated with BiPAP G47.33 Active 39689666 ALLERGIES No Information SOCIAL HISTORY Never Assessed PLAN OF CARE VITAL SIGNS MEDICATIONS Unknown [...] History sepsis Hospitalization History Acute hypoxic resp distress--[facility] 07/28/16 Hospitalization History Denies any past psychiatric hospitalization
--- OUTSIDE RECORDS SUMMARY | 2018-10-07 10:36 | XMS REPORT ---
Author Author RAMONE CELAYA Organization [facility] Address [address] [place] [address] Care Team Providers Care Sprayer Insecticide Name Role Phone BELIARAMONE Unavailable PROBLEMS Type Condition ICD9-CM Code SBU10-TW Code Onset Dates Condition Status SNOMED Code Problem Psychophysiological insomnia F51.04 Active 672776391 Problem Eating disorder, unspecified F50.9 Active 65995031 Problem Adjustment disorder with depressed mood F43.21 Active 15315618 Problem COPD exacerbation J44.1 Active 962346799 Problem Insomnia G47.00 Active 124927114 Problem BMI 45.0-49.9, adult Z68.42 Active 443938659 Problem OCD (obsessive compulsive disorder) F42 Active 491674666 Problem Chronic cellulitis L03.90 Active 769982799 Problem Moderate persistent asthma without complication J45.40 Active 414906200 Problem Body mass index (BMI) of 40.0-44.9 in adult Z68.41 Active 810732350 Problem Severe persistent asthma with acute exacerbation J45.51 Active 273485253 Problem Other obesity due to excess calories E66.09 Active 32017914017658 Problem Obesity (BMI 30.0-34.9) E66.9 Active 116417603634781 Problem SVETLANA treated with BiPAP G47.33 Active 96326426 Problem Anxiety F41.9 Active 69063672 Problem Asthma J45.909 Active 130632232 Problem Iron deficiency anemia, unspecified iron deficiency anemia type D50.9 Active 08105607 Problem Asthma exacerbation J45.901 Active 250546772 Problem Reactive depression F32.9 Active 98085205 Problem Seasonal allergic rhinitis due to pollen J30.1 Active 48781542 Problem Other chronic pain G89.29 Active 11672850 Problem Habitual self-excoriation F42.4 Active 405197716 ALLERGIES No Information ENCOUNTERS Encounter Location Date Diagnosis [facility] [id number] [place] [address] 84403- 5781 Feb, Anxiety F41.9 and Psychophysiological insomnia F51.04 [facility] [id number] [place] [address] 35989- 3387 January, Acute pain of left knee M25.562 and BMI 50.0-59.9, adult Z68.43 [facility] [id number] [place] [address] 19806- 6310 January, [facility] [address] 78604- 1393 January, COPD exacerbation J44.1 and Severe persistent asthma with acute exacerbation J45.51 [facility] [id number] [place] [address] 95044- 3220 January, Anxiety F41.9 and Psychophysiological insomnia F51.04 [facility] [id number] [place] [address] 92730- 7007 January, COPD exacerbation J44.1 and Left medial knee pain M25.562 [facility] [id number] [place] [address] 03036- 6119 Dec, COPD with exacerbation J44.1 ; BMI 45.0-49.9, adult Z68.42 ; SVETLANA treated with BiPAP G47.33 and Psychophysiological insomnia F51.04 [facility] [id number] [place] [address] 73892- 2812 Dec, [facility] [id number] [place] [address] 44415- 5289 Dec, Acute pain of left knee M25.562 ; Unspecified fall, initial encounter W19.XXXA ; Unspecified place in unspecified non-institutional (private ) residence as the place of occurrence of the external cause Y92.009 ; BMI 45.0- 49.9, adult Z68.42 and Severe persistent asthma with acute exacerbation J45.51 [facility] [id number] [place] [address] 36278- 6782 Dec, Anxiety F41.9 and Psychophysiological insomnia F51.04 [facility] [id number] [place] [address] 16450- 9098 Nov, Psychophysiological insomnia F51.04 [facility] [id number] [place] [address] 68994- 0671 Oct, [facility] [address] 76270- 3930 Oct, Anxiety F41.9 [facility] [id number] [place] [address] 78574- 9149 Oct, [facility] [facility] [address] 44550- 7928 Oct, Severe persistent asthma with acute exacerbation J45.51 ; Tobacco abuse Z72.0 and BMI 45.0-49.9, adult Z68.42 [facility] [address] 14405- 3931 Oct, Psychophysiological insomnia F51.04 [facility] [id number] [place] [address] 57695- 9269 Sep, Anxiety F41.9 [facility] [id number] [place] [address] 35604- 0451 Sep, Anxiety F41.9 and Habitual self-excoriation F42.4 [facility] [id number] [place] [address] 07716- 9082 Sep, Psychophysiological insomnia F51.04 [facility] [id number] [place] [address] 69699- 2465 Aug, Anxiety F41.9 [facility] [id number] [place] [address] 27298- 4055 Aug, Asthma J45.909 [facility] [id number] [place] [address] 72755- 7307 Aug, Anxiety F41.9 [facility] [id number] [place] [address] 57240 -0965 Aug, Acute bronchitis, unspecified organism J20.9 [facility] [id number] [place] [address] 59266- 6960 Aug, Psychophysiological insomnia F51.04 [facility] [id number] [place] [address] 20603- 1732 Jul, Therapeutic drug monitoring Z51.81 [facility] [id number] [place] [address] 45944- 8903 Jul, [facility] [address] 70294- 2475 Jul, Habitual self-excoriation F42.4 [facility] [id number] [place] [address] 79019- 4236 Jul, [facility] [id number] [place] [address] 73001- 1165 Jul, [facility] [id number] [place] [address] 55062- 8307 Jun, SVETLANA treated with BiPAP G47.33 ; Moderate persistent asthma without complication J45.40 ; Anxiety F41.9 ; Other obesity due to excess calories E66.09 ; Body mass index (BMI) of 40.0-44.9 in adult Z68.41 ; Psychophysiological insomnia F51.04 and Encounter for immunization Z23 [facility] [id number] [place] [address] 54874- 3438 Jun, [facility] [facility] [address] 43496- 9984 Jun, Habitual self-excoriation F42.4 ; Adjustment disorder with depressed mood F43.21 ; Psychophysiological insomnia F51.04 and Eating disorder , unspecified F50.9 [facility] [id number] [place] [address] 59597- 8344 Jun, Visit for TB skin test Z11.1 [facility] [address] [address] 4514 Jun, Habitual self-excoriation F42.4 and Psychophysiological insomnia F51.04 [facility] [id number] [address]- 3722 Jun, Asthma J45.909 [facility] [id number] [place] [address] 95272- 1411 May, Asthma J45.909 [facility] [id number] [place] [address] 64753- 9772 May, [facility] [id number] [place] [address] 59636- 7508 May, Habitual self-excoriation F42.4 and Psychophysiological insomnia F51.04 [facility] [id number] [place] [address] 81636- 1416 Apr, Habitual self-excoriation F42.4 ; Adjustment disorder with depressed mood F43.21 ; Psychophysiological insomnia F51.04 and Eating disorder , unspecified F50.9 [facility] [id number] [place] [address] 79275- 3862 Apr, [facility] [address] [place] [address] 76694- 1969 Apr, Habitual self-excoriation F42.4 ; Adjustment disorder with depressed mood F43.21 ; Psychophysiological insomnia F51.04 and Other alf (current) drug therapy Z79.899 [facility] [address] [address]- 0239 Mar, [facility] [id number] [place] [address] 77414- 5417 Mar, [facility] [address] [place] [address] 57434- 8073 Mar, Anxiety F41.9 [facility] [id number] [place] [address] 64560- 1175 Feb, Asthma J45.909 [facility] [id number] [place] [address] 89554- 6356 Feb, [facility] [id number] [place] [address] 07851- 1632 Feb, Anxiety F41.9 [facility] [address] 96070- 3459 Feb, Asthma exacerbation J45.901 and Seasonal allergic rhinitis due to pollen J30.1 [facility] [address] 05829- 0347 January, [facility] [id number] [place] [address] 87615- 7950 January, Anxiety F41.9 [facility] [address] 86625- 2600 Dec, Therapeutic drug monitoring Z51.81 [facility] [id number] [place] [address] 69441- 9904 Dec, Anxiety F41.9 and Asthma J45.909 [facility] [id number] [place] [address] 83073- 9225 Nov, Asthma J45.909 [facility] [id number] [place] [address] 89759- 2080 Nov, Anxiety F41.9 [facility] [id number] [place] [address] 88003- 6212 Oct, Asthma exacerbation J45.901 ; Pain in right knee M25.561 ; Pain in left knee M25.562 and Open wound of eyebrow, left, subsequent encounter S01.102D [facility] [id number] [place] [address] 31420- 1424 Oct, [facility] [id number] [place] [address] 54894 -9971 11 Oct, 2016 Other viral agents as the cause of diseases classified elsewhere B97.89 and Acute upper respiratory infection, unspecified J06.9 [facility] [id number] [place] [address] 69174- 8426 10 Oct, 2016 [facility] [facility] [address] 18475- 5836 08 Oct, 2016 [place] [address] 07133- 4607 Oct, Anxiety F41.9 [facility] [facility] [address] 91757- 3997 Sep, [place] [facility] [address] 12403- 7793 Sep, SVETLANA treated with BiPAP G47.33 and Asthma J45.909 [facility] [facility] [address] 94918- 9233 Sep, SVETLANA treated with BiPAP G47.33 ; Obesity (BMI 30.0-34.9) E66.9 and Reactive depression F32.9 [facility] [address] 65528- 1479 Sep, Anxiety F41.9 [facility] [id number] [place] [address] 89842- 6587 Aug, [place] [address] 31757- 7559 Aug, Insomnia G47.00 [facility] [facility] [address] 40345- 4249 Aug, [facility] [facility] [address] 41721- 2245 Aug, SVETLANA treated with BiPAP G47.33 and On supplemental oxygen therapy Z99.81 [place] [facility] [address] 56186- 4782 Jul, On supplemental oxygen therapy Z99.81 ; Obesity (BMI 30.0- 34.9) E66.9 and SVETLANA treated with BiPAP G47.33 [facility] [id number] [place] [address] 32162- 3225 17 Jul, 2016 Mucus plugging of bronchi J98.09 ; On supplemental oxygen therapy Z99.81 ; Acute midline thoracic back pain M54.6 and SVETLANA treated with BiPAP G47.33 [facility] [id number] [place] [address] 91237- 8800 16 Jul, 2016 [facility] [address] 35748- 3703 Jul, [facility] [address] 96701- 6066 Jul, [facility] [address] 76773- 8095 May, [facility] [address] 28124- 2052 May, [facility] [address] 58700- 9713 Apr, [facility] [id number] [place] [address] 86627- 0211 Apr, [facility] [address] 96022- 2752 Apr, Insomnia G47.00 ; Anemia D64.9 ; OCD (obsessive compulsive disorder) F42 ; Anxiety F41.9 ; Asthma J45.909 and Obesity (BMI 30.0-34.9) E66.9 [facility] [address] 86426- 3326 Feb, [facility] [id number] [place] [address] 66545- 4072 Feb, Insomnia G47.00 [facility] [id number] [place] [address] 54102- 9105 17 Nov, 2015 [facility] [id number] [place] [address] 32727- 9191 Nov, [facility] [id number] [place] [address] 31471- 2716 Nov, [facility] [id number] [place] [address] 12540- 6703 Nov, OCD (obsessive compulsive disorder) F42 ; Anxiety F41.9 ; Insomnia G47.00 ; Anemia D64.9 and Asthma J45.909 [facility] [id number] [place] [address] 24171- 4651 Nov, [facility] [id number] [place] [address] 53786- 8991 Oct, [facility] [id number] [place] [address] 02903- 8386 Aug, OCD (obsessive compulsive disorder) F42 ; Chronic cellulitis L03.90 ; Anxiety F41.9 ; Insomnia G47.00 ; Anemia D64.9 and Asthma J45.909 [facility] [address] [place] [address] 81060- 2990 Aug, [facility] [id number] [place] [address] 78786- 5969 Jul, [facility] [id number] [place] [address] 66750- 2770 Jul, OCD (obsessive compulsive disorder) F42 ; Chronic cellulitis L03.90 ; Anxiety F41.9 ; Insomnia G47.00 and Anemia D64.9 [facility] [id number] [place] [address] 00423- 5137 14 Dec, 2014 [facility] [id number] [place] [address] 30534- 3550 Dec, [facility] [id number] [address]- 2241 Aug, [facility] [place] [facility] [address] [id number] [place] [address]- 7539 Aug, [facility] [place] [facility] [address] [id number] [place] [address]- 9284 Aug, [facility] [place] [facility] [address] [id number] [place] [address]- 9780 Aug, [facility] [place] [facility] [address] [id number] [place] [address]- 0882 Aug, [facility] [place] [facility] [address] [id number] [place] [address]- 8075 Aug, [facility] [place] [facility] [address] [id number] [place] [address]- 7985 Aug, [facility] [place] [facility] [address] [id number] [place] [address]- 9251 Jul, [facility] [place] [facility] [address] [id number] [place] [address]- 0245 Jul, [facility] [place] [facility] [address] [id number] [place] [address]- 8921 Jul, [facility] [place] [facility] [address] [id number] [place] [address]- 6701 Jul, [facility] [place] [facility] [address] [id number] [place] [address]- 9447 Apr, [facility] [place] [facility] [address] [id number] [place] [address]- 0745 Apr, [facility] [place] [facility] [address] [id number] [place] [address]- 6523 Feb, [facility] [place] [facility] [address] [id number] [place] [address]- 9341 Feb, [facility] [place] [facility] [address] [id number] [place] [address]- 8807 Feb, [facility] [place] [facility] [address] [id number] [place] [address]- 7540 Feb, [facility] [place] [facility] [address] [id number] [place] [address]- 1037 January, [facility] [place] [facility] [address] [id number] [place] [address]- 6060 January, [facility] [place] [facility] [address] [id number] [place] [address]- 9081 January, [facility] [place] [facility] [address] [id number] [place] [address]- 3665 Dec, [facility] [place] [facility] [address] [id number] [place] [address]- 8978 Dec, [facility] [place] [facility] [address] [id number] [place] [address]- 4160 Dec, [facility] [place] [facility] [address] [id number] [place] [address]- 7054 Dec, [facility] [place] [facility] [address] [id number] [place] [address]- 1652 Nov, [facility] [place] [facility] [address] [id number] [place] [address]- 5334 Nov, [facility] [place] [facility] [address] [id number] [place] [address]- 7736 Nov, [facility] [place] [facility] [address] [id number] [place] [address]- 5023 Nov, [facility] [place] [facility] [address] [id number] [place] [address]- 2652 Nov, [facility] [place] [facility] [address] [id number] [place] [address]- 8464 Nov, [facility] [place] [facility] [address] [id number] [place] [address]- 2816 Oct, [facility] [place] [facility] [address] [id number] [place] [address]- 8110 Oct, [facility] [place] [facility] [address] [id number] [place] [address]- 8176 Oct, [facility] [place] [facility] [address] [id number] [place] [address]- 6956 Oct, [facility] [place] [facility] [address] [id number] [place] [address]- 7656 Oct, [facility] [place] [facility] [address] [id number] [place] [address]- 7509 Oct, [facility] [place] [facility] [address] [id number] [place] [address]- 0471 Oct, [facility] [place] [facility] [address] [id number] [place] [address]- 1475 Oct, [facility] [place] [facility] [address] [id number] [place] [address]- 1341 Oct, [facility] [place] [facility] [address] [id number] [place] [address]- 6317 Oct, [facility] [place] [facility] [address] [id number] [place] [address]- 8013 Oct, [facility] [place] [facility] [address] [facility] [id number] [place] [address]- 4946 Oct, [facility] [place] [facility] [address] [id number] [place] [address]- 4976 Sep, [facility] [place] [facility] [address] [id number] [place] [address]- 1078 Sep, [facility] [place] [facility] [address] [id number] [place] [address]- 6498 Sep, [facility] [place] [facility] [address] [id number] [place] [address]- 2712 Sep, [facility] [place] [facility] [address] [id number] [place] [address]- 4544 Aug, [facility] [address] [facility] [id number] 2093 Aug, [facility] [id number] [address]- 7040 Aug, [facility] [id number] [address]- 3933 Aug, [facility] [address] [place] [address]- 6440 Aug, [facility] [id number] 4687 Aug, [facility] [id number] [address]- 8410 Aug, IMMUNIZATIONS No Known Immunizations SOCIAL HISTORY Never Assessed REASON FOR VISIT ativan refill 09/18/2017 PLAN OF CARE VITAL SIGNS MEDICATIONS Medication [...]
--- OUTSIDE RECORDS SUMMARY | 2018-10-07 10:36 | XMS REPORT ---
Author Author BRICE RAMIREZ Organization [facility] Address [address] [place] [address] Care Team Providers Care Deputy District Customs Director Name Role Phone BRICE RAMIREZ Unavailable PROBLEMS Type Condition ICD9-CM Code [id number] Code Onset Dates Condition Status SNOMED Code Problem Other chronic pain G89.29 Active 85194987 Problem Reactive depression F32.9 Active 41958328 Problem Iron deficiency anemia, unspecified iron deficiency anemia type D50.9 Active 04534460 Problem Eating disorder, unspecified F50.9 Active 60726240 Problem Adjustment disorder with depressed mood F43.21 Active 78006744 Problem Seasonal allergic rhinitis due to pollen J30.1 Active 91509981 Problem Asthma exacerbation J45.901 Active 423205489 Problem Psychophysiological insomnia F51.04 Active 406222346 Problem Habitual self-excoriation F42.4 Active 456906439 Problem Chronic cellulitis L03.90 Active 013314695 Problem OCD (obsessive compulsive disorder) F42 Active 794279065 Problem Obesity (BMI 30.0-34.9) E66.9 Active 543156219722139 Problem Insomnia G47.00 Active 188220344 Problem Asthma J45.909 Active 945752153 Problem Anxiety F41.9 Active 41950689 Problem SVETLANA treated with BiPAP G47.33 Active 92957991 ALLERGIES No Information SOCIAL HISTORY Never Assessed PLAN OF CARE VITAL SIGNS MEDICATIONS Medication Instructions Dosage Frequency Start Date End Date Duration Status Ativan 0.5 MG Orally 2 times a day 1 tablet as needed 12h 22 Apr, 2016 Active PredniSONE 50 mg Orally Once a day 1 tablet 24h Nov, Nov, 07 days Active Zolpidem Tartrate 10 mg TAKE 1 [...] History sepsis Hospitalization History Acute hypoxic resp distress--[facility] 07/28/16 Hospitalization History Denies any past psychiatric hospitalization
--- OUTSIDE RECORDS SUMMARY | 2018-10-07 10:37 | XMS REPORT ---
Author Author BRICE RAMIREZ Organization [facility] Address [address] [place] [address] Care Team Providers Care Faculty Research Physician Name Role Phone BRICE RAMIREZ Unavailable PROBLEMS Type Condition ICD9-CM Code MOZ97-EA Code Onset Dates Condition Status SNOMED Code Problem Habitual self-excoriation F42.4 Active 534629485 Problem Adjustment disorder with depressed mood F43.21 Active 85076795 Problem Psychophysiological insomnia F51.04 Active 712719858 Problem BMI 45.0-49.9, adult Z68.42 Active 351074726 Problem Chronic cellulitis L03.90 Active 502284112 Problem Severe persistent asthma with acute exacerbation J45.51 Active 206595044 Problem OCD (obsessive compulsive disorder) F42 Active 358190386 Problem Other obesity due to excess calories E66.09 Active 81789131904025 Problem Eating disorder, unspecified F50.9 Active 18510978 Problem Moderate persistent asthma without complication J45.40 Active 138469611 Problem Body mass index (BMI) of 40.0-44.9 in adult Z68.41 Active 351551202 Problem Obesity (BMI 30.0-34.9) E66.9 Active 216654469906849 Problem Asthma J45.909 Active 364706580 Problem Insomnia G47.00 Active 297871439 Problem Anxiety F41.9 Active 30149726 Problem Iron deficiency anemia, unspecified iron deficiency anemia type D50.9 Active 25353379 Problem Other chronic pain G89.29 Active 28332981 Problem SVETLANA treated with BiPAP G47.33 Active 29474788 Problem Asthma exacerbation J45.901 Active 322094728 Problem Reactive depression F32.9 Active 98778794 Problem Seasonal allergic rhinitis due to pollen J30.1 Active 74031573 ALLERGIES No Information ENCOUNTERS Encounter Location Date Diagnosis [facility] [address] [facility] [id number] [address] Dec, [facility] [id number] [place] [address] 01541- 0673 Nov, Psychophysiological insomnia F51.04 [facility] [id number] [place] [address] 10199- 5181 Oct, [facility] [id number] [place] [address] 24035- 2110 Oct, Anxiety F41.9 [facility] [id number] [place] [address] 58421- 0104 Oct, [facility] [id number] [place] [address] 42136- 9710 Oct, Severe persistent asthma with acute exacerbation J45.51 ; Tobacco abuse Z72.0 and BMI 45.0-49.9, adult Z68.42 [facility] [id number] [place] [address] 63511- 5911 Oct, Psychophysiological insomnia F51.04 [facility] [id number] [place] [address] 42759- 6922 Sep, Anxiety F41.9 [facility] [id number] [place] [address] 23449- 6252 Sep, Anxiety F41.9 and Habitual self-excoriation F42.4 [facility] [id number] [place] [address] 39712- 1810 Sep, Psychophysiological insomnia F51.04 [facility] [id number] [place] [address] 46536- 3420 Aug, Anxiety F41.9 [facility] [id number] [place] [address] 11308- 4857 Aug, Asthma J45.909 [facility] [address] [place] [address] 04711- 0636 Aug, Anxiety F41.9 [facility] [id number] [place] [address] 31033 -3853 Aug, Acute bronchitis, unspecified organism J20.9 [facility] [facility] [address] 80525- 2139 Aug, Psychophysiological insomnia F51.04 [facility] [id number] [place] [address] 49909- 3459 Jul, Therapeutic drug monitoring Z51.81 [facility] [address] 94837- 7291 Jul, [facility] [address] 51494- 4102 Jul, Habitual self-excoriation F42.4 [facility] [address] 47371- 0062 08 Jul, 2017 [place] [address] 67886- 3160 Jul, [facility] [id number] [place] [address] 82466- 3651 Jun, SVETLANA treated with BiPAP G47.33 ; Moderate persistent asthma without complication J45.40 ; Anxiety F41.9 ; Other obesity due to excess calories E66.09 ; Body mass index (BMI) of 40.0-44.9 in adult Z68.41 ; Psychophysiological insomnia F51.04 and Encounter for immunization Z23 [facility] [id number] [place] [address] 09149- 9824 Jun, [facility] [id number] [place] [address] 45919- 8760 Jun, Habitual self-excoriation F42.4 ; Adjustment disorder with depressed mood F43.21 ; Psychophysiological insomnia F51.04 and Eating disorder , unspecified F50.9 [facility] [id number] [place] [address] 77057- 8484 Jun, Visit for TB skin test Z11.1 [facility] [address] [address] 9259 Jun, Habitual self-excoriation F42.4 and Psychophysiological insomnia F51.04 [facility] [address] [place] [address] 73309- 1739 Jun, Asthma J45.909 [facility] [address] [place] [address] 75621- 8092 May, Asthma J45.909 [facility] [id number] [place] [address] 10090- 9399 May, [facility] [id number] [place] [address] 43135- 5485 May, Habitual self-excoriation F42.4 and Psychophysiological insomnia F51.04 [facility] [address] [place] [address] 57817- 3371 Apr, Habitual self-excoriation F42.4 ; Adjustment disorder with depressed mood F43.21 ; Psychophysiological insomnia F51.04 and Eating disorder , unspecified F50.9 [facility] [id number] [place] [address] 67015- 9993 Apr, [facility] [id number] [place] [address] 74680- 1967 Apr, Habitual self-excoriation F42.4 ; Adjustment disorder with depressed mood F43.21 ; Psychophysiological insomnia F51.04 and Other alf (current) drug therapy Z79.899 [facility] [address] [place] [address] 60668- 4344 Mar, [facility] [id number] [place] [address] 85838- 5852 Mar, [facility] [address] [place] [address] 82253- 3662 Mar, Anxiety F41.9 [facility] [id number] [place] [address] 90833- 3196 Feb, Asthma J45.909 [facility] [id number] [place] [address] 78014- 0963 Feb, [place] [address] 40043- 4812 Feb, Anxiety F41.9 [place] [facility] [address] 45953- 1338 Feb, Asthma exacerbation J45.901 and Seasonal allergic rhinitis due to pollen J30.1 [facility] [address] 74392- 9106 January, [facility] [address] 88988- 4413 January, Anxiety F41.9 [facility] [facility] [address] 50980- 2906 Dec, Therapeutic drug monitoring Z51.81 [facility] [address] 67268- 3276 Dec, Anxiety F41.9 and Asthma J45.909 [facility] [address] 87009- 6861 Nov, Asthma J45.909 [facility] [id number] [place] [address] 40633- 9468 Nov, Anxiety F41.9 [facility] [address] 72401- 8250 Oct, Asthma exacerbation J45.901 ; Pain in right knee M25.561 ; Pain in left knee M25.562 and Open wound of eyebrow, left, subsequent encounter S01.102D [facility] [id number] [place] [address] 76613- 2007 16 Oct, 2016 [facility] [id number] [place] [address] 19425 -2241 Oct, Other viral agents as the cause of diseases classified elsewhere B97.89 and Acute upper respiratory infection, unspecified J06.9 [facility] [address] 78399- 5280 10 Oct, 2016 [facility] [id number] [place] [address] 71098- 9771 Oct, [place] [address] 36683- 2025 Oct, Anxiety F41.9 [facility] [facility] [address] 04149- 4379 Sep, [place] [address] 68661- 8891 Sep, SVETLANA treated with BiPAP G47.33 and Asthma J45.909 [place] [address] 53179- 4398 Sep, SVETLANA treated with BiPAP G47.33 ; Obesity (BMI 30.0-34.9) E66.9 and Reactive depression F32.9 [place] [address] 82357- 4146 Sep, Anxiety F41.9 [facility] [id number] [place] [address] 05024- 2534 Aug, [facility] [id number] [place] [address] 65695- 5258 Aug, Insomnia G47.00 [facility] [id number] [place] [address] 08110- 1997 Aug, [place] [address] 31247- 5537 Aug, SVETLANA treated with BiPAP G47.33 and On supplemental oxygen therapy Z99.81 [place] [address] 22293- 9370 Jul, On supplemental oxygen therapy Z99.81 ; Obesity (BMI 30.0- 34.9) E66.9 and SVETLANA treated with BiPAP G47.33 [facility] [id number] [place] [address] 02560- 0855 Jul, 2016 Mucus plugging of bronchi J98.09 ; On supplemental oxygen therapy Z99.81 ; Acute midline thoracic back pain M54.6 and SVETLANA treated with BiPAP G47.33 [facility] [address] 51274- 0553 Jul, [facility] [id number] [place] [address] 71594- 7775 Jul, [facility] [address] 70450- 5205 Jul, [facility] [address] 02754- 0978 May, [facility] [id number] [place] [address] 48167- 9220 May, [facility] [id number] [place] [address] 48729- 1888 Apr, [facility] [id number] [place] [address] 21090- 0463 Apr, [facility] [id number] [place] [address] 57514- 8717 Apr, Insomnia G47.00 ; Anemia D64.9 ; OCD (obsessive compulsive disorder) F42 ; Anxiety F41.9 ; Asthma J45.909 and Obesity (BMI 30.0-34.9) E66.9 [facility] [id number] [place] [address] 81914- 1349 Feb, [facility] [id number] [place] [address] 87232- 9305 Feb, Insomnia G47.00 [facility] [address] 76274- 2652 17 Nov, 2015 [facility] [address] [address]- 6078 15 Nov, 2015 [facility] [id number] [place] [address] 98164- 5552 15 Nov, 2015 [facility] [address] [place] [address] 97034- 8760 14 Nov, 2015 OCD (obsessive compulsive disorder) F42 ; Anxiety F41.9 ; Insomnia G47.00 ; Anemia D64.9 and Asthma J45.909 [facility] [id number] [place] [address] 41272- 5715 Nov, [facility] [id number] [place] [address] 90789- 3899 Oct, [facility] [id number] [place] [address] 65998- 8817 Aug, OCD (obsessive compulsive disorder) F42 ; Chronic cellulitis L03.90 ; Anxiety F41.9 ; Insomnia G47.00 ; Anemia D64.9 and Asthma J45.909 [facility] [id number] [place] [address] 81981- 9587 Aug, [facility] [id number] [place] [address] 74340- 4219 Jul, [facility] [id number] [place] [address] 52170- 5651 Jul, OCD (obsessive compulsive disorder) F42 ; Chronic cellulitis L03.90 ; Anxiety F41.9 ; Insomnia G47.00 and Anemia D64.9 [facility] [id number] [place] [address] 97803- 9291 Dec, [facility] [id number] [place] [address] 12640- 5309 Dec, [facility] [id number] [place] [address] 55242- 6057 Aug, [facility] [place] [facility] [address] [id number] [place] [address]- 8788 Aug, [facility] [place] [facility] [address] [id number] [place] [address]- 3016 Aug, [facility] [place] [facility] [address] [id number] [place] [address]- 9459 Aug, [facility] [place] [facility] [address] [id number] [place] [address]- 5868 Aug, [facility] [place] [facility] [address] [id number] [place] [address]- 0722 Aug, [facility] [place] [facility] [address] [id number] [place] [address]- 0632 Aug, [facility] [place] [facility] [address] [id number] [place] [address]- 1983 Jul, [facility] [place] [facility] [address] [id number] [place] [address]- 0493 Jul, [facility] [place] [facility] [address] [id number] [place] [address]- 4821 Jul, [facility] [place] [facility] [address] [id number] [place] [address]- 4966 Jul, [facility] [place] [facility] [address] [id number] [place] [address]- 7321 Apr, [facility] [place] [facility] [address] [id number] [place] [address]- 8428 Apr, [facility] [place] [facility] [address] [id number] [place] [address]- 4380 Feb, [facility] [place] [facility] [address] [id number] [place] [address]- 1998 Feb, [facility] [place] [facility] [address] [id number] [place] [address]- 7343 Feb, [facility] [place] [facility] [address] [id number] [place] [address]- 8815 Feb, [facility] [place] [facility] [address] [id number] [place] [address]- 0924 January, [facility] [place] [facility] [address] [id number] [place] [address]- 1054 January, [facility] [place] [facility] [address] [id number] [place] [address]- 3916 January, [facility] [place] [facility] [address] [id number] [place] [address]- 6167 Dec, [facility] [place] [facility] [address] [id number] [place] [address]- 8686 Dec, [facility] [place] [facility] [address] [id number] [place] [address]- 1853 Dec, [facility] [place] [facility] [address] [id number] [place] [address]- 4591 Dec, [facility] [place] [facility] [address] [id number] [place] [address]- 6851 Nov, [facility] [place] [facility] [address] [id number] [place] [address]- 2160 Nov, [facility] [place] [facility] [address] [id number] [place] [address]- 4096 Nov, [facility] [place] [facility] [address] [id number] [place] [address]- 3093 Nov, [facility] [place] [facility] [address] [id number] [place] [address]- 9498 Nov, [facility] [place] [facility] [address] [id number] [place] [address]- 8297 Nov, [facility] [place] [facility] [address] [id number] [place] [address]- 5948 Oct, [facility] [place] [facility] [address] [id number] [place] [address]- 1185 Oct, [facility] [place] [facility] [address] [id number] [place] [address]- 6862 Oct, [facility] [place] [facility] [address] [id number] [place] [address]- 8286 Oct, [facility] [place] [facility] [address] [id number] [place] [address]- 4426 Oct, [facility] [place] [facility] [address] [id number] [place] [address]- 2297 Oct, [facility] [place] [facility] [address] [id number] [place] [address]- 2909 Oct, [facility] [place] [facility] [address] [id number] [place] [address]- 3312 Oct, [facility] [place] [facility] [address] [id number] [place] [address]- 3916 Oct, [facility] [place] [facility] [address] [id number] [place] [address]- 5355 Oct, [facility] [place] [facility] [address] [id number] [place] [address]- 1166 Oct, [facility] [place] [facility] [address] [id number] [place] [address]- 4274 Oct, [facility] [place] [facility] [address] [id number] [place] [address]- 7889 Sep, [facility] [place] [facility] [address] [id number] [place] [address]- 5513 Sep, [facility] [place] [facility] [address] [id number] [place] [address]- 2693 Sep, [facility] [place] [facility] [address] [id number] [place] [address]- 6072 Sep, [facility] [place] [facility] [address] [id number] [place] [address]- 5303 Aug, [facility] [place] [facility] [address] [facility] [id number] [place] [address]- 9057 Aug, [facility] [address] [facility] [id number] [place] 3220 Aug, [facility] [address] [facility] [id number] [place] [address]- 7787 Aug, [facility] [address] [facility] [id number] [place] [address]- 0604 Aug, [facility] [address] [facility] [id number] [place] 7889 Aug, [facility] [address] [facility] [id number] [place] [address]- 0890 Aug, IMMUNIZATIONS No Known Immunizations SOCIAL HISTORY Never Assessed REASON FOR VISIT med refills PLAN OF CARE VITAL SIGNS MEDICATIONS Medication Instructions Dosage Frequency Start Date End Date Duration Status Ativan 0.5 MG Orally 2 times a day 1 tablet as needed 12h Apr, Active Zolpidem Tartrate 10 mg TAKE ONE TABLET BY MOUTH ONCE DAILY EVERY NIGHT AT BEDTIME NEEDED. Active Hydrocodone-Acetaminophen 5-325 MG Orally BID PRN [...]
--- OUTSIDE RECORDS SUMMARY | 2018-10-07 10:37 | XMS REPORT ---
Author Author BRICE RAMIREZ Organization [facility], [place] Address [address] [place] [address] Care Team Providers Care Doorkeeper Name Role Phone BRICE RAMIREZ Unavailable PROBLEMS Type Condition ICD9-CM Code OOQ93-NK Code Onset Dates Condition Status SNOMED Code Problem Habitual self-excoriation F42.4 Active 287722832 Problem Adjustment disorder with depressed mood F43.21 Active 99315833 Problem Psychophysiological insomnia F51.04 Active 899012934 Problem BMI 45.0-49.9, adult Z68.42 Active 994554646 Problem Chronic cellulitis L03.90 Active 544876934 Problem Severe persistent asthma with acute exacerbation J45.51 Active 894808184 Problem OCD (obsessive compulsive disorder) F42 Active 479687883 Problem Other obesity due to excess calories E66.09 Active 46332090741839 Problem Eating disorder, unspecified F50.9 Active 46898328 Problem Moderate persistent asthma without complication J45.40 Active 880053968 Problem Body mass index (BMI) of 40.0-44.9 in adult Z68.41 Active 907777783 Problem Obesity (BMI 30.0-34.9) E66.9 Active 574230248712240 Problem Asthma J45.909 Active 124284342 Problem Insomnia G47.00 Active 436387290 Problem Anxiety F41.9 Active 63154334 Problem Iron deficiency anemia, unspecified iron deficiency anemia type D50.9 Active 65540309 Problem Other chronic pain G89.29 Active 30568907 Problem SVETLANA treated with BiPAP G47.33 Active 67919739 Problem Asthma exacerbation J45.901 Active 158950729 Problem Reactive depression F32.9 Active 24023074 Problem Seasonal allergic rhinitis due to pollen J30.1 Active 46783505 ALLERGIES No Information ENCOUNTERS Encounter Location Date Diagnosis [facility], [place] [address] [facility] [id number] [address] Dec, [facility], [place] [id number] [place] [address] 15837- 0428 Nov, Psychophysiological insomnia F51.04 [facility], [place] [id number] [place] [address] 67591- 0825 Oct, [facility], [place] [id number] [place] [address] 97932- 7926 Oct, Anxiety F41.9 [facility], [place] [id number] [place] [address] 37963- 6326 Oct, [facility], [place] [id number] [place] [address] 56514- 2520 Oct, Severe persistent asthma with acute exacerbation J45.51 ; Tobacco abuse Z72.0 and BMI 45.0-49.9, adult Z68.42 [place] [id number] [place] [address] 22471- 6688 Oct, Psychophysiological insomnia F51.04 [facility], [place] [id number] [place] [address] 34957- 3110 Sep, Anxiety F41.9 [facility] [id number] [place] [address] 34099- 4160 Sep, Anxiety F41.9 and Habitual self-excoriation F42.4 [facility] [id number] [place] [address] 22141- 7157 Sep, Psychophysiological insomnia F51.04 [facility], [place] [id number] [place] [address] 51487- 3326 Aug, Anxiety F41.9 [facility] [id number] [place] [address] 34352- 8556 Aug, Asthma J45.909 [facility], [place] [address] [place] [address] 27932- 0321 Aug, Anxiety F41.9 [facility] [id number] [place] [address] 89959 -1228 Aug, Acute bronchitis, unspecified organism J20.9 [place] [address] 55125- 8449 Aug, Psychophysiological insomnia F51.04 [facility] [id number] [place] [address] 43302- 1871 Jul, Therapeutic drug monitoring Z51.81 [place] [address] 54517- 5905 Jul, [place] [address] 13661- 2056 Jul, Habitual self-excoriation F42.4 [place] [address] 43662- 0721 08 Jul, 2017 [place] [address] 96665- 7663 Jul, [facility] [id number] [place] [address] 34424- 9572 Jun, SVETLANA treated with BiPAP G47.33 ; Moderate persistent asthma without complication J45.40 ; Anxiety F41.9 ; Other obesity due to excess calories E66.09 ; Body mass index (BMI) of 40.0-44.9 in adult Z68.41 ; Psychophysiological insomnia F51.04 and Encounter for immunization Z23 [place] [id number] [place] [address] 64144- 1010 Jun, [place] [id number] [place] [address] 97432- 4698 Jun, Habitual self-excoriation F42.4 ; Adjustment disorder with depressed mood F43.21 ; Psychophysiological insomnia F51.04 and Eating disorder , unspecified F50.9 [place] [id number] [place] [address] 83201- 2745 Jun, Visit for TB skin test Z11.1 [place] [address] [address] Jun, Habitual self-excoriation F42.4 and Psychophysiological insomnia F51.04 [facility], [place] [address] [place] [address] 28579- 2010 Jun, Asthma J45.909 [facility], [place] [address] [place] [address] 74842- 8324 May, Asthma J45.909 [facility], [place] [id number] [place] [address] 00046- 9509 May, [place] [id number] [place] [address] 08277- 4978 May, Habitual self-excoriation F42.4 and Psychophysiological insomnia F51.04 [place] [address] [place] [address] 89820- 2271 Apr, Habitual self-excoriation F42.4 ; Adjustment disorder with depressed mood F43.21 ; Psychophysiological insomnia F51.04 and Eating disorder , unspecified F50.9 [place] [id number] [place] [address] 81043- 4108 Apr, [place] [id number] [place] [address] 15889- 3711 Apr, Habitual self-excoriation F42.4 ; Adjustment disorder with depressed mood F43.21 ; Psychophysiological insomnia F51.04 and Other fpc (current) drug therapy Z79.899 [facility] [place] [address] [place] [address] 89025- 1635 Mar, [facility] [place] [id number] [place] [address] 83760- 8167 Mar, [facility] [place] [address] [place] [address] 79956- 4595 Mar, Anxiety F41.9 [facility] [place] [id number] [place] [address] 28893- 2381 Feb, Asthma J45.909 [facility], [place] [id number] [place] [address] 80693- 9679 Feb, [place] [address] [address]28- 1995 Feb, Anxiety F41.9 [place] [address] 16741- 9303 Feb, Asthma exacerbation J45.901 and Seasonal allergic rhinitis due to pollen J30.1 [place] [address] 35514- 0719 January, [place] [address] 08933- 2577 January, Anxiety F41.9 [place] [address] 63743- 4115 Dec, Therapeutic drug monitoring Z51.81 [place] [address] 03355- 8028 Dec, Anxiety F41.9 and Asthma J45.909 [place] [address] 62646- 2352 Nov, Asthma J45.909 [place] [id number] [place] [address] 98012- 2387 Nov, Anxiety F41.9 [place] [address] 64672- 0010 Oct, Asthma exacerbation J45.901 ; Pain in right knee M25.561 ; Pain in left knee M25.562 and Open wound of eyebrow, left, subsequent encounter S01.102D [facility] [place] [id number] [place] [address] 76168- 3301 16 Oct, 2016 [facility] [id number] [place] [address] 96395 -3358 Oct, Other viral agents as the cause of diseases classified elsewhere B97.89 and Acute upper respiratory infection, unspecified J06.9 [place] [address] 09100- 1397 10 Oct, 2016 [place] [id number] [place] [address] 33636- 8805 Oct, [place] [address] 82493- 6699 Oct, Anxiety F41.9 [place] [address] 83714- 4123 Sep, [place] [address] 85528- 4796 Sep, SVETLANA treated with BiPAP G47.33 and Asthma J45.909 [place] [address] 55515- 2833 Sep, SVETLANA treated with BiPAP G47.33 ; Obesity (BMI 30.0-34.9) E66.9 and Reactive depression F32.9 [place] [address] 86193- 4997 Sep, Anxiety F41.9 [place] [id number] [place] [address] 23381- 1262 Aug, [place] [id number] [place] [address] 28373- 3762 Aug, Insomnia G47.00 [place] [id number] [place] [address] 11482- 6893 Aug, [place] [address] 59409- 7378 Aug, SVETLANA treated with BiPAP G47.33 and On supplemental oxygen therapy Z99.81 [place] [address] 17161- 0606 Jul, On supplemental oxygen therapy Z99.81 ; Obesity (BMI 30.0- 34.9) E66.9 and SVETLANA treated with BiPAP G47.33 [facility], [place] [id number] [place] [address] 58158- 1182 Jul, 2016 Mucus plugging of bronchi J98.09 ; On supplemental oxygen therapy Z99.81 ; Acute midline thoracic back pain M54.6 and SVETLANA treated with BiPAP G47.33 [facility], [place] [address] 78328- 8097 Jul, [facility] [place] [id number] [place] [address] 78798- 6691 Jul, [facility] [place] [address] 42010- 6826 Jul, [facility] [place] [address] 29539- 5309 May, [facility] [place] [id number] [place] [address] 11329- 7672 May, [facility] [place] [id number] [place] [address] 51397- 7311 Apr, [facility] [place] [id number] [place] [address] 05983- 5794 Apr, [facility] [place] [id number] [place] [address] 29834- 3644 Apr, Insomnia G47.00 ; Anemia D64.9 ; OCD (obsessive compulsive disorder) F42 ; Anxiety F41.9 ; Asthma J45.909 and Obesity (BMI 30.0-34.9) E66.9 [facility] [place] [id number] [place] [address] 67197- 6824 Feb, [facility] [place] [id number] [place] [address] 94614- 4370 Feb, Insomnia G47.00 [facility] [place] [address] 90071- 0912 17 Nov, 2015 [facility] [place] [address] [address]- 3299 15 Nov, 2015 [facility] [place] [id number] [place] [address] 22296- 4736 15 Nov, 2015 [facility] [place] [address] [place] [address] 06239- 2785 14 Nov, 2015 OCD (obsessive compulsive disorder) F42 ; Anxiety F41.9 ; Insomnia G47.00 ; Anemia D64.9 and Asthma J45.909 [facility] [place] [id number] [place] [address] 15121- 0642 Nov, [facility] [place] [id number] [place] [address] 34566- 1401 Oct, [facility] [place] [id number] [place] [address] 78758- 4228 Aug, OCD (obsessive compulsive disorder) F42 ; Chronic cellulitis L03.90 ; Anxiety F41.9 ; Insomnia G47.00 ; Anemia D64.9 and Asthma J45.909 [facility] [place] [id number] [place] [address] 61109- 9526 Aug, [facility] [place] [id number] [place] [address] 38888- 4365 Jul, [facility] [place] [id number] [place] [address] 07345- 1733 Jul, OCD (obsessive compulsive disorder) F42 ; Chronic cellulitis L03.90 ; Anxiety F41.9 ; Insomnia G47.00 and Anemia D64.9 [facility] [place] [id number] [place] [address] 88309- 7137 Dec, [facility] [place] [id number] [place] [address] 95938- 6293 Dec, [facility], [place] [id number] [place] [address] 66611- 7710 Aug, [facility] [place] [facility] [address] [id number] [place] [address]- 3155 Aug, [facility] [place] [facility] [address] [id number] [place] [address]- 9027 Aug, [facility] [place] [facility] [address] [id number] [place] [address]- 1447 Aug, [facility] [place] [facility] [address] [id number] [place] [address]- 7812 Aug, [facility] [place] [facility] [address] [id number] [place] [address]- 8542 Aug, [facility] [place] [facility] [address] [id number] [place] [address]- 1948 Aug, [facility] [place] [facility] [address] [id number] [place] [address]- 0765 Jul, [facility] [place] [facility] [address] [id number] [place] [address]- 9298 Jul, [facility] [place] [facility] [address] [id number] [place] [address]- 3862 Jul, [facility] [place] [facility] [address] [id number] [place] [address]- 9658 Jul, [facility] [place] [facility] [address] [id number] [place] [address]- 5992 Apr, [facility] [place] [facility] [address] [id number] [place] [address]- 8364 Apr, [facility] [place] [facility] [address] [id number] [place] [address]- 8604 Feb, [facility] [place] [facility] [address] [id number] [place] [address]- 9259 Feb, [facility] [place] [facility] [address] [id number] [place] [address]- 8415 Feb, [facility] [place] [facility] [address] [id number] [address]- 5949 Feb, [facility] [place] [facility] [address] [id number] [place] [address]- 3920 January, [facility] [place] [facility] [address] [id number] [place] [address]- 5164 January, [facility] [place] [facility] [address] [id number] [place] [address]- 5550 January, [facility] [place] [facility] [address] [id number] [place] [address]- 7425 Dec, [facility] [place] [facility] [address] [id number] [place] [address]- 8074 Dec, [facility] [place] [facility] [address] [id number] [place] [address]- 7932 Dec, [facility] [place] [facility] [address] [id number] [place] [address]- 7834 Dec, [facility] [place] [facility] [address] [id number] [place] [address]- 7839 Nov, [facility] [place] [facility] [address] [id number] [place] [address]- 0486 Nov, [facility] [place] [facility] [address] [id number] [place] [address]- 0478 Nov, [facility] [place] [facility] [address] [id number] [place] [address]- 9584 Nov, [facility] [place] [facility] [address] [id number] [place] [address]- 6607 Nov, [facility] [place] [facility] [address] [id number] [place] [address]- 7412 Nov, [facility] [place] [facility] [address] [id number] [place] [address]- 5770 Oct, [facility] [place] [facility] [address] [id number] [place] [address]- 1145 Oct, [facility] [place] [facility] [address] [id number] [place] [address]- 3573 Oct, [facility] [place] [facility] [address] [id number] [place] [address]- 6996 Oct, [facility] [place] [facility] [address] [id number] [place] [address]- 9026 Oct, [facility] [place] [facility] [address] [id number] [place] [address]- 6254 Oct, [facility] [place] [facility] [address] [id number] [place] [address]- 4995 Oct, [facility] [place] [facility] [address] [id number] [place] [address]- 5047 Oct, [facility] [place] [facility] [address] [id number] [place] [address]- 7075 Oct, [facility] [place] [facility] [address] [id number] [place] [address]- 1102 Oct, [facility] [place] [facility] [address] [id number] [place] [address]- 4329 Oct, [facility] [place] [facility] [address] [id number] [place] [address]- 5422 Oct, [facility] [place] [facility] [address] [id number] [place] [address]- 6501 Sep, [facility] [place] [facility] [address] [id number] [place] [address]- 8916 Sep, [facility] [place] [facility] [address] [id number] [place] [address]- 9878 Sep, [facility] [place] [facility] [address] [id number] [place] [address]- 9270 Sep, [facility] [place] [facility] [address] [id number] [place] [address]- 9640 Aug, [facility] [place] [facility] [address] [facility] [id number] [address]32 Aug, [facility] [place] [address] [facility] [id number], [place] [address]- 9033 Aug, [facility] [place] [address] [id number] 5188 Aug, [facility] [place] [address] [facility] [id number] 3433 Aug, [facility] [place] [address] [id number] [address]- 8221 Aug, [facility] [place] [address] [facility] [id number], [place] [address]- 2590 Aug, IMMUNIZATIONS No Known Immunizations SOCIAL HISTORY Never Assessed REASON FOR VISIT Refill request PLAN OF CARE VITAL SIGNS MEDICATIONS [...] History sepsis Hospitalization History Acute hypoxic resp distress--[facility] 07/28/16 Hospitalization History Denies any past psychiatric hospitalization
--- OUTSIDE RECORDS SUMMARY | 2018-10-07 10:39 | XMS REPORT ---
Author Author RAMONE CELAYA Organization [facility] Address [address] [place] [address] Care Team Providers Care Front Of House Manager Name Role Phone BELIA, RAMONE Unavailable PROBLEMS Type Condition ICD9-CM Code FPG15-VP Code Onset Dates Condition Status SNOMED Code Problem Habitual self-excoriation F42.4 Active 792393108 Problem Adjustment disorder with depressed mood F43.21 Active 22342937 Problem Psychophysiological insomnia F51.04 Active 823910368 Problem BMI 45.0-49.9, adult Z68.42 Active 843789716 Problem Chronic cellulitis L03.90 Active 981641700 Problem Severe persistent asthma with acute exacerbation J45.51 Active 224225077 Problem OCD (obsessive compulsive disorder) F42 Active 482634530 Problem Other obesity due to excess calories E66.09 Active 28695155596600 Problem Eating disorder, unspecified F50.9 Active 95265391 Problem Moderate persistent asthma without complication J45.40 Active 988692411 Problem Body mass index (BMI) of 40.0-44.9 in adult Z68.41 Active 509090680 Problem Obesity (BMI 30.0-34.9) E66.9 Active 081444059291185 Problem Asthma J45.909 Active 975752421 Problem Insomnia G47.00 Active 107059808 Problem Anxiety F41.9 Active 92099525 Problem Iron deficiency anemia, unspecified iron deficiency anemia type D50.9 Active 08965191 Problem Other chronic pain G89.29 Active 44805720 Problem SVETLANA treated with BiPAP G47.33 Active 39189056 Problem Asthma exacerbation J45.901 Active 635361296 Problem Reactive depression F32.9 Active 48389797 Problem Seasonal allergic rhinitis due to pollen J30.1 Active 50164867 ALLERGIES Substance Reaction Event Type Date Status Morphine Sulfate itching Drug Allergy Apr, Active ENCOUNTERS Encounter Location Date Diagnosis [facility] [id number] [place] [address] 13099- 0942 Feb, [place] [address] 95778- 9767 Dec, Acute pain of left knee M25.562 ; Unspecified fall, initial encounter W19.XXXA ; Unspecified place in unspecified non-institutional (private ) residence as the place of occurrence of the external cause Y92.009 ; BMI 45.0- 49.9, adult Z68.42 and Severe persistent asthma with acute exacerbation J45.51 [place] [id number] [place] [address] 75035- 2063 Dec, Anxiety F41.9 and Psychophysiological insomnia F51.04 [place] [address] 83121- 3675 Nov, Psychophysiological insomnia F51.04 [place] [address] 46151- 2018 Oct, [place] [id number] [place] [address] 45177- 5058 Oct, Anxiety F41.9 [place] [address] 51024- 8854 Oct, [place] [id number] [place] [address] 44762- 4185 Oct, Severe persistent asthma with acute exacerbation J45.51 ; Tobacco abuse Z72.0 and BMI 45.0-49.9, adult Z68.42 [place] [id number] [place] [address] 51131- 0682 Oct, Psychophysiological insomnia F51.04 [place] [address] 12454- 2604 Sep, Anxiety F41.9 [place] [id number] [place] [address] 24366- 3720 Sep, Anxiety F41.9 and Habitual self-excoriation F42.4 [facility] [id number] [place] [address] 28722- 9633 Sep, Psychophysiological insomnia F51.04 [facility] [address] 99134- 5557 Aug, Anxiety F41.9 [facility] [address] 76040- 0847 Aug, Asthma J45.909 [facility] [address] 74796- 2689 Aug, Anxiety F41.9 [facility] [address] 01110 -1396 Aug, Acute bronchitis, unspecified organism J20.9 [place] [address] 24788- 3361 Aug, Psychophysiological insomnia F51.04 [facility] [id number] [place] [address] 17402- 1227 Jul, Therapeutic drug monitoring Z51.81 [place] [address] 15338- 5108 Jul, [place] [address] 83799- 0288 Jul, Habitual self-excoriation F42.4 [place] [address] 30653- 0036 Jul, [facility] [address] 09878- 5110 Jul, [place] [address] 64661- 4322 Jun, SVETLANA treated with BiPAP G47.33 ; Moderate persistent asthma without complication J45.40 ; Anxiety F41.9 ; Other obesity due to excess calories E66.09 ; Body mass index (BMI) of 40.0-44.9 in adult Z68.41 ; Psychophysiological insomnia F51.04 and Encounter for immunization Z23 [place] [id number] [place] [address] 68164- 2259 Jun, [place] [id number] [place] [address] 18579- 4228 Jun, Habitual self-excoriation F42.4 ; Adjustment disorder with depressed mood F43.21 ; Psychophysiological insomnia F51.04 and Eating disorder , unspecified F50.9 [place] [id number] [place] [address] 52245- 0128 Jun, Visit for TB skin test Z11.1 [place] [address] 73714- 3487 Jun, Habitual self-excoriation F42.4 and Psychophysiological insomnia F51.04 [place] [address] 77072- 2108 Jun, Asthma J45.909 [place] [id number] [place] [address] 43170- 0167 May, Asthma J45.909 [place] [id number] [place] [address] 64065- 6266 May, [place] [id number] [place] [address] 80593- 7468 May, Habitual self-excoriation F42.4 and Psychophysiological insomnia F51.04 [place] [id number] [place] [address] 30376- 7941 Apr, Habitual self-excoriation F42.4 ; Adjustment disorder with depressed mood F43.21 ; Psychophysiological insomnia F51.04 and Eating disorder , unspecified F50.9 [place] [id number] [place] [address] 02845- 5514 Apr, [place] [id number] [place] [address] 59856- 6242 Apr, Habitual self-excoriation F42.4 ; Adjustment disorder with depressed mood F43.21 ; Psychophysiological insomnia F51.04 and Other skilled nursing (current) drug therapy Z79.899 [facility] [id number] [place] [address] 07427- 4715 Mar, [facility] [id number] [place] [address] 70614- 6858 Mar, [facility] [address] 66373- 7909 Mar, Anxiety F41.9 [place] [address] 72585- 6447 Feb, Asthma J45.909 [place] [id number] [place] [address] 77589- 1146 Feb, [facility] [address] 49018- 8957 Feb, Anxiety F41.9 [place] [id number] [place] [address] 87351- 6912 Feb, Asthma exacerbation J45.901 and Seasonal allergic rhinitis due to pollen J30.1 [place] [id number] [place] [address] 81043- 5644 January, [facility] [id number] [place] [address] 44268- 2498 January, Anxiety F41.9 [facility] [id number] [place] [address] 17088- 6573 Dec, Therapeutic drug monitoring Z51.81 [place] [address] 44182- 1796 Dec, Anxiety F41.9 and Asthma J45.909 [facility] [id number] [place] [address] 37096- 4774 Nov, Asthma J45.909 [place] [id number] [place] [address] 79422- 9957 Nov, Anxiety F41.9 [place] [address] 39168- 6864 Oct, Asthma exacerbation J45.901 ; Pain in right knee M25.561 ; Pain in left knee M25.562 and Open wound of eyebrow, left, subsequent encounter S01.102D [place] [address] 99774- 8996 16 Oct, 2016 [facility] [address] 34708 -9547 Oct, Other viral agents as the cause of diseases classified elsewhere B97.89 and Acute upper respiratory infection, unspecified J06.9 [place] [address] 42831- 7774 Oct, [place] [address] 18152- 5959 Oct, [place] [address] 10454- 4531 Oct, Anxiety F41.9 [place] [id number] [place] [address] 47375- 1764 Sep, [place] [address] 30284- 8949 Sep, SVETLANA treated with BiPAP G47.33 and Asthma J45.909 [place] [id number] [place] [address] 09252- 0058 Sep, SVETLANA treated with BiPAP G47.33 ; Obesity (BMI 30.0-34.9) E66.9 and Reactive depression F32.9 [place] [id number] [place] [address] 40028- 1037 Sep, Anxiety F41.9 [place] [address] [place] [address]- 1355 Aug, [facility] [id number] [place] [address] 66778- 8857 Aug, Insomnia G47.00 [facility] [id number] [place] [address] 04784- 3852 Aug, [facility] [id number] [place] [address] 80947- 0157 Aug, SVETLANA treated with BiPAP G47.33 and On supplemental oxygen therapy Z99.81 [facility] [id number] [place] [address] 29298- 0507 Jul, On supplemental oxygen therapy Z99.81 ; Obesity (BMI 30.0- 34.9) E66.9 and SVETLANA treated with BiPAP G47.33 [facility] [id number] [place] [address] 69163- 3633 17 Jul, 2016 Mucus plugging of bronchi J98.09 ; On supplemental oxygen therapy Z99.81 ; Acute midline thoracic back pain M54.6 and SVETLANA treated with BiPAP G47.33 [facility] [id number] [place] [address] 94439- 0730 16 Jul, 2016 [facility] [id number] [place] [address] 44675- 9715 15 Jul, 2016 [facility] [id number] [place] [address] 94889- 9372 Jul, [facility] [id number] [place] [address] 47567- 6170 May, [facility] [id number] [place] [address] 16719- 8413 May, [facility] [id number] [place] [address] 64466- 7434 Apr, [facility] [id number] [place] [address] 40057- 9811 Apr, [place] [id number] [place] [address] 11383- 5041 Apr, Insomnia G47.00 ; Anemia D64.9 ; OCD (obsessive compulsive disorder) F42 ; Anxiety F41.9 ; Asthma J45.909 and Obesity (BMI 30.0-34.9) E66.9 [place] [id number] [place] [address] 51220- 8707 Feb, [place] [address] 22827- 1295 Feb, Insomnia G47.[address] 53945- 4398 Nov, [place] [id number] [place] [address] 55795- 4505 Nov, [place] [address] 41106- 4276 Nov, [place] [id number] [place] [address] 64134- 9456 Nov, OCD (obsessive compulsive disorder) F42 ; Anxiety F41.9 ; Insomnia G47.00 ; Anemia D64.9 and Asthma J45.909 [place] [id number] [place] [address] 83581- 9425 Nov, [place] [id number] [place] [address] 81105- 1060 Oct, [place] [id number] [place] [address] 10715- 2861 Aug, OCD (obsessive compulsive disorder) F42 ; Chronic cellulitis L03.90 ; Anxiety F41.9 ; Insomnia G47.00 ; Anemia D64.9 and Asthma J45.909 [place] [id number] [place] [address] 48592- 4765 Aug, [address] 52268- 0033 Jul, [facility] [address] [address]- 4730 Jul, OCD (obsessive compulsive disorder) F42 ; Chronic cellulitis L03.90 ; Anxiety F41.9 ; Insomnia G47.00 and Anemia D64.9 [facility] [address] [address]- 1608 14 Dec, 2014 [facility] [id number] [place] [address] 33835- 2551 Dec, [facility] [id number] [place] [address] 14242- 6692 Aug, [facility] [id number] [place] [address] 49739- 2389 Aug, [facility] [id number] [place] [address] 11249- 3719 Aug, [facility] [id number] [place] [address] 57097- 4678 Aug, [facility] [id number] [place] [address] 04810- 9256 Aug, [facility] [id number] [place] [address] 40087- 2906 Aug, [facility] [address] [address]- 0838 Aug, [facility] [address] [address]- 5257 Jul, [facility] [id number] [place] [address] 95462- 4671 Jul, [facility] [address] [address]- 9199 Jul, [facility] [address] [address]- 4543 Jul, [facility] [place] [facility] [address] [id number] [place] [address]- 2695 Apr, [facility] [place] [facility] [address] [id number] [place] [address]- 0637 Apr, [facility] [place] [facility] [address] [id number] [place] [address]- 6093 Feb, [facility] [place] [facility] [address] [id number] [place] [address]- 2851 Feb, [facility] [place] [facility] [address] [id number] [place] [address]- 3609 Feb, [facility] [place] [facility] [address] [id number] [place] [address]- 0890 Feb, [facility] [place] [facility] [address] [id number] [place] [address]- 5625 January, [facility] [place] [facility] [address] [id number] [place] [address]- 7682 January, [facility] [place] [facility] [address] [id number] [place] [address]- 6393 January, [facility] [place] [facility] [address] [id number] [place] [address]- 7838 Dec, [facility] [place] [facility] [address] [id number] [place] [address]- 3942 Dec, [facility] [place] [facility] [address] [id number] [place] [address]- 5382 Dec, [facility] [place] [facility] [address] [id number] [place] [address]- 9694 Dec, [facility] [place] [facility] [address] [id number] [place] [address]- 3291 Nov, [facility] [place] [facility] [address] [id number] [place] [address]- 9301 Nov, [facility] [place] [facility] [address] [id number] [place] [address]- 5914 Nov, [facility] [place] [facility] [address] [id number] [place] [address]- 6881 Nov, [facility] [place] [facility] [address] [id number] [place] [address]- 4549 Nov, [facility] [place] [facility] [address] [id number] [place] [address]- 1285 Nov, [facility] [place] [facility] [address] [id number] [place] [address]- 1746 Oct, [facility] [place] [facility] [address] [id number] [place] [address]- 5060 Oct, [facility] [place] [facility] [address] [id number] [place] [address]- 6168 Oct, [facility] [place] [facility] [address] [id number] [place] [address]- 0118 Oct, [facility] [place] [facility] [address] [id number] [place] [address]- 6942 Oct, [facility] [place] [facility] [address] [id number] [place] [address]- 3861 Oct, [facility] [place] [facility] [address] [id number] [place] [address]- 3174 Oct, [facility] [place] [facility] [address] [id number] [place] [address]- 8993 Oct, [facility] [place] [facility] [address] [id number] [place] [address]- 8256 Oct, [facility] [place] [facility] [address] [id number] [place] [address]- 5660 Oct, [facility] [place] [facility] [address] [id number] [place] [address]- 8633 Oct, [facility] [place] [facility] [address] [facility] [id number] [place] [address]- 2193 Oct, [facility] [place] [facility] [address] [address]- 9504 Sep, [facility] [address] [address]- 0898 Sep, [facility] [address] [address]- 6377 Sep, [facility] [address] [address]- 5770 Sep, [facility] [address] [address]- 1307 Aug, [facility] [id number] [place] [address] 85270- 7224 Aug, [facility] [address] [address]- 6183 Aug, [facility] [address] [address]- 5757 Aug, [facility] [address] [address]- 2348 Aug, [facility] [address] [address]- 2056 Aug, [facility] [id number] [address]- 5264 Aug, IMMUNIZATIONS No Known Immunizations SOCIAL HISTORY Never Assessed REASON FOR VISIT ANA f/richard - [place] AUGUST PLAN OF CARE Activity Details Follow Up 4 Weeks Reason:ANA f/richard VITAL SIGNS Height 65 in 2017-05-18 Weight 222.1 lbs 2017-05-18 Heart Rate 72 bpm 2017-05-18 Respiratory Rate 18 2017-05-18 BMI 36.96 kg/m2 2017-05-18 Blood pressure systolic 106 mmHg 2017-05-18 Blood pressure diastolic 68 mmHg 2017-05-18 MEDICATIONS Medication Instructions Dosage Frequency Start Date End Date Duration Status Ativan 1 MG Orally twice a day as needed 1 tablet 30 days Active Symbicort 160-4.5 mcg/act Inhalation Twice a day 2 puffs 12h 27 Oct, 2013 Active Celexa 10 mg Orally Once a day 1 1/2 tablets 24h 28 Apr, 2017 30 day(s ) Active Hydrocodone-Acetaminophen 5-325 MG Orally 2 times a day as needed 1 tablet Apr, Active Zolpidem Tartrate 10 mg Orally at bedtime as needed 1 tablet 30 days Active Ipratropium-Albuterol 20-100 MCG/ACT Inhalation Four times a day 1 puff 6h Nov, Active RESULTS No Results PROCEDURES No Known procedures INSTRUCTIONS MEDICATIONS ADMINISTERED No Known Medications MEDICAL (GENERAL) HISTORY Type Description Date Medical History asthma Medical History anxiety Medical History gastric bypass Medical History anemia Medical History sleep apnea treated with biPAP Surgical History gastric bypass 2002 Hospitalization History surgery Hospitalization History anemia Hospitalization History sepsis Hospitalization History Acute hypoxic resp distress--[facility] 07/28/16 Hospitalization History Denies any past psychiatric hospitalization
--- OUTSIDE RECORDS SUMMARY | 2018-10-07 10:40 | XMS REPORT ---
Author Author RAMONE CELAYA Organization [facility] Address [address] [place] [address] Care Team Providers Care Bonding Agent Name Role Phone BELIARAMONE Unavailable PROBLEMS Type Condition ICD9-CM Code JNC18-JL Code Onset Dates Condition Status SNOMED Code Problem Psychophysiological insomnia F51.04 Active 661778880 Problem Eating disorder, unspecified F50.9 Active 70033229 Problem Adjustment disorder with depressed mood F43.21 Active 04922262 Problem COPD exacerbation J44.1 Active 408201133 Problem Insomnia G47.00 Active 153136304 Problem BMI 45.0-49.9, adult Z68.42 Active 586910020 Problem OCD (obsessive compulsive disorder) F42 Active 784296371 Problem Chronic cellulitis L03.90 Active 826222976 Problem Moderate persistent asthma without complication J45.40 Active 516024399 Problem Body mass index (BMI) of 40.0-44.9 in adult Z68.41 Active 424508350 Problem Severe persistent asthma with acute exacerbation J45.51 Active 527494482 Problem Other obesity due to excess calories E66.09 Active 12442617607829 Problem Obesity (BMI 30.0-34.9) E66.9 Active 836242833067699 Problem SVETLANA treated with BiPAP G47.33 Active 52129221 Problem Anxiety F41.9 Active 33779398 Problem Asthma J45.909 Active 222968540 Problem Iron deficiency anemia, unspecified iron deficiency anemia type D50.9 Active 77379605 Problem Asthma exacerbation J45.901 Active 551560628 Problem Reactive depression F32.9 Active 77536635 Problem Seasonal allergic rhinitis due to pollen J30.1 Active 39609675 Problem Other chronic pain G89.29 Active 12994228 Problem Habitual self-excoriation F42.4 Active 964254777 ALLERGIES No Information ENCOUNTERS Encounter Location Date Diagnosis [facility] [id number] [place] [address] 10097- 2627 January, Acute pain of left knee M25.562 and BMI 50.0-59.9, adult Z68.43 [facility] [id number] [place] [address] 89596- 7718 January, [place] [address] 63709- 5777 January, COPD exacerbation J44.1 and Severe persistent asthma with acute exacerbation J45.51 [place] [address] 24349- 5474 January, Anxiety F41.9 and Psychophysiological insomnia F51.04 [place] [address] 99216- 2255 January, COPD exacerbation J44.1 and Left medial knee pain M25.562 [place] [address] 88516- 5170 Dec, COPD with exacerbation J44.1 ; BMI 45.0-49.9, adult Z68.42 ; SVETLANA treated with BiPAP G47.33 and Psychophysiological insomnia F51.04 [facility] [id number] [place] [address] 72409- 2271 Dec, [facility] [id number] [place] [address] 31280- 5962 Dec, Acute pain of left knee M25.562 ; Unspecified fall, initial encounter W19.XXXA ; Unspecified place in unspecified non-institutional (private ) residence as the place of occurrence of the external cause Y92.009 ; BMI 45.0- 49.9, adult Z68.42 and Severe persistent asthma with acute exacerbation J45.51 [facility] [id number] [place] [address] 00082- 5143 Dec, Anxiety F41.9 and Psychophysiological insomnia F51.04 [place] [address] 05229- 0029 Nov, Psychophysiological insomnia F51.04 [facility] [id number] [place] [address] 46062- 9947 Oct, [place] [address] 01229- 8736 Oct, Anxiety F41.9 [place] [address] 47663- 3010 Oct, [facility] [address] 89893- 7387 Oct, Severe persistent asthma with acute exacerbation J45.51 ; Tobacco abuse Z72.0 and BMI 45.0-49.9, adult Z68.42 [place] [address] 53083- 6589 Oct, Psychophysiological insomnia F51.04 [place] [address] 27540- 8904 Sep, Anxiety F41.9 [place] [address] 18071- 7017 Sep, Anxiety F41.9 and Habitual self-excoriation F42.4 [facility] [id number] [place] [address] 84590- 4903 Sep, Psychophysiological insomnia F51.04 [facility] [id number] [place] [address] 16909- 1824 Aug, Anxiety F41.9 [facility] [id number] [place] [address] 20254- 0239 Aug, Asthma J45.909 [place] [address] 96344- 3427 Aug, Anxiety F41.9 [facility] [id number] [place] [address] 17354 -2613 Aug, Acute bronchitis, unspecified organism J20.9 [place] [id number] [place] [address] 72804- 7232 Aug, Psychophysiological insomnia F51.04 [place] [address] 37497- 1216 Jul, Therapeutic drug monitoring Z51.81 [place] [address] 62829- 2233 Jul, [place] [address] 83956- 2376 Jul, Habitual self-excoriation F42.4 [place] [address] 60736- 6553 08 Jul, 2017 [place] [address] 26212- 9983 Jul, [place] [address] 22784- 2333 Jun, SVETLANA treated with BiPAP G47.33 ; Moderate persistent asthma without complication J45.40 ; Anxiety F41.9 ; Other obesity due to excess calories E66.09 ; Body mass index (BMI) of 40.0-44.9 in adult Z68.41 ; Psychophysiological insomnia F51.04 and Encounter for immunization Z23 [place] [id number] [place] [address] 17966- 3852 Jun, [place] [address] 16113- 4521 Jun, Habitual self-excoriation F42.4 ; Adjustment disorder with depressed mood F43.21 ; Psychophysiological insomnia F51.04 and Eating disorder , unspecified F50.9 [place] [id number] [place] [address] 76427- 9602 Jun, Visit for TB skin test Z11.1 [place] [id number] [place] [address] 66090- 6299 Jun, Habitual self-excoriation F42.4 and Psychophysiological insomnia F51.04 [facility] [address] [address]- 3631 Jun, Asthma J45.909 [facility] [address] [address]- 0327 May, Asthma J45.909 [facility] [id number] [place] [address] 95096- 9463 May, [facility] [id number] [place] [address] 02043- 3266 May, Habitual self-excoriation F42.4 and Psychophysiological insomnia F51.04 [place] [id number] [place] [address] 11658- 0854 Apr, Habitual self-excoriation F42.4 ; Adjustment disorder with depressed mood F43.21 ; Psychophysiological insomnia F51.04 and Eating disorder , unspecified F50.9 [facility] [id number] [place] [address] 81316- 9327 Apr, [facility] [id number] [place] [address] 52471- 7659 Apr, Habitual self-excoriation F42.4 ; Adjustment disorder with depressed mood F43.21 ; Psychophysiological insomnia F51.04 and Other snf (current) drug therapy Z79.899 [facility] [address] [address]- 8003 Mar, [facility] [id number] [place] [address] 87368- 3481 Mar, [facility] [id number] [place] [address] 67739- 6620 Mar, Anxiety F41.9 [facility] [id number] [place] [address] 25206- 2269 Feb, Asthma J45.909 [facility] [id number] [place] [address] 56414- 2416 Feb, [place] [id number] [place] [address] 07154- 6479 Feb, Anxiety F41.9 [place] [id number] [place] [address] 42564- 5326 Feb, Asthma exacerbation J45.901 and Seasonal allergic rhinitis due to pollen J30.1 [place] [id number] [place] [address] 37849- 6168 January, [place] [id number] [place] [address] 16234- 3988 January, Anxiety F41.9 [place] [address] 32053- 5856 Dec, Therapeutic drug monitoring Z51.[address] 16172- 9128 Dec, Anxiety F41.9 and Asthma J45.909 [place] [id number] [place] [address] 87388- 6930 Nov, Asthma J45.909 [place] [id number] [place] [address] 89645- 3346 Nov, Anxiety F41.9 [place] [id number] [place] [address] 60440- 0334 Oct, Asthma exacerbation J45.901 ; Pain in right knee M25.561 ; Pain in left knee M25.562 and Open wound of eyebrow, left, subsequent encounter S01.102D [place] [id number] [place] [address] 80191- 1130 16 Oct, 2016 [facility] [address] [place] [address] 19558 -5286 11 Oct, 2016 Other viral agents as the cause of diseases classified elsewhere B97.89 and Acute upper respiratory infection, unspecified J06.9 [facility] [id number] [address]- 4725 10 Oct, 2016 [facility] [id number] [place] [address] 33478- 0286 08 Oct, 2016 [facility] [id number] [place] [address] 43901- 3891 02 Oct, 2016 Anxiety F41.9 [facility] [id number] [place] [address] 78516- 3680 Sep, [facility] [id number] [place] [address] 52905- 2677 Sep, SVETLANA treated with BiPAP G47.33 and Asthma J45.909 [place] [id number] [place] [address] 48353- 3931 Sep, SVETLANA treated with BiPAP G47.33 ; Obesity (BMI 30.0-34.9) E66.9 and Reactive depression F32.9 [place] [id number] [place] [address] 74047- 7188 Sep, Anxiety F41.9 [place] [id number] [place] [address] 53066- 9210 Aug, [place] [id number] [place] [address] 30932- 6217 Aug, Insomnia G47.00 [place] [id number] [place] [address] 01397 2541 Aug, [facility] [id number] [place] [address] 51848- 2547 Aug, SVETLANA treated with BiPAP G47.33 and On supplemental oxygen therapy Z99.81 [facility] [id number] [place] [address] 73085- 2545 Jul, On supplemental oxygen therapy Z99.81 ; Obesity (BMI 30.0- 34.9) E66.9 and SVETLANA treated with BiPAP G47.33 [facility] [id number] [place] [address] 67452- 1655 17 Jul, 2016 Mucus plugging of bronchi J98.09 ; On supplemental oxygen therapy Z99.81 ; Acute midline thoracic back pain M54.6 and SVETLANA treated with BiPAP G47.33 [facility] [id number] [place] [address] 20047- 7747 16 Jul, 2016 [facility] [id number] [place] [address] 24424- 8685 Jul, [facility] [id number] [place] [address] 38841- 7701 Jul, [facility] [id number] [place] [address] 93786- 9239 May, [facility] [id number] [place] [address] 93394- 3994 May, [facility] [id number] [place] [address] 57848- 5525 Apr, [facility] [id number] [place] [address] 47525- 4376 Apr, [facility] [id number] [place] [address] 70787- 9842 Apr, Insomnia G47.00 ; Anemia D64.9 ; OCD (obsessive compulsive disorder) F42 ; Anxiety F41.9 ; Asthma J45.909 and Obesity (BMI 30.0-34.9) E66.9 [facility] [id number] [place] [address] 59660- 2675 Feb, [facility] [id number] [place] [address] 92695- 5219 Feb, Insomnia G47.00 [facility] [id number] [place] [address] 61449- 3651 Nov, [facility] [address] 94370- 4598 Nov, [facility] [address] [address]- 5165 Nov, [facility] [address] [place] [address] 99492- 5891 Nov, OCD (obsessive compulsive disorder) F42 ; Anxiety F41.9 ; Insomnia G47.00 ; Anemia D64.9 and Asthma J45.909 [facility] [id number] [place] [address] 96932- 3685 Nov, [facility] [id number] [place] [address] 02987- 3925 Oct, [facility] [id number] [place] [address] 52034- 8414 Aug, OCD (obsessive compulsive disorder) F42 ; Chronic cellulitis L03.90 ; Anxiety F41.9 ; Insomnia G47.00 ; Anemia D64.9 and Asthma J45.909 [facility] [address] [place] [address] 34255- 4471 Aug, [facility] [id number] [place] [address] 14198- 9580 Jul, [facility] [address] [place] [address] 43273- 3739 Jul, OCD (obsessive compulsive disorder) F42 ; Chronic cellulitis L03.90 ; Anxiety F41.9 ; Insomnia G47.00 and Anemia D64.9 [facility] [address], [place] [address]- 3147 Dec, [facility] [id number] [place] [address] 86080- 5371 Dec, [facility] [address], [place] [address]- 4583 Aug, [facility] [id number] [place] [address] 98879- 9442 Aug, [facility] [place] [facility] [address] [id number] [place] [address]- 0245 Aug, [facility] [place] [facility] [address] [id number] [place] [address]- 6065 Aug, [facility] [place] [facility] [address] [id number] [place] [address]- 6165 Aug, [facility] [place] [facility] [address] [id number] [place] [address]- 0358 Aug, [facility] [place] [facility] [address] [id number] [place] [address]- 4591 Aug, [facility] [place] [facility] [address] [id number] [place] [address]- 6908 Jul, [facility] [place] [facility] [address] [id number] [place] [address]- 5231 Jul, [facility] [place] [facility] [address] [id number] [place] [address]- 5632 Jul, [facility] [place] [facility] [address] [id number] [place] [address]- 1528 Jul, [facility] [place] [facility] [address] [id number] [place] [address]- 5939 Apr, [facility] [place] [facility] [address] [id number] [place] [address]- 8208 Apr, [facility] [place] [facility] [address] [id number] [address]- 7769 Feb, [facility] [place] [facility] [address] [id number] [place] [address]- 5755 Feb, [facility] [place] [facility] [address] [id number] [place] [address]- 3925 Feb, [facility] [place] [facility] [address] [id number] [place] [address]- 8537 Feb, [facility] [place] [facility] [address] [id number] [place] [address]- 2749 January, [facility] [place] [facility] [address] [id number] [place] [address]- 6064 January, [facility] [place] [facility] [address] [id number] [place] [address]- 8583 January, [facility] [place] [facility] [address] [id number] [place] [address]- 4291 Dec, [facility] [place] [facility] [address] [id number] [place] [address]- 5198 Dec, [facility] [place] [facility] [address] [id number] [place] [address]- 0204 Dec, [facility] [place] [facility] [address] [id number] [place] [address]- 5380 Dec, [facility] [place] [facility] [address] [id number] [place] [address]- 5944 Nov, [facility] [place] [facility] [address] [id number] [place] [address]- 7199 Nov, [facility] [place] [facility] [address] [id number] [place] [address]- 2050 Nov, [facility] [place] [facility] [address] [id number] [place] [address]- 9148 Nov, [facility] [place] [facility] [address] [id number] [place] [address]- 1924 Nov, [facility] [place] [facility] [address] [id number] [place] [address]- 6298 Nov, [facility] [place] [facility] [address] [id number] [place] [address]- 9727 Oct, [facility] [place] [facility] [address] [id number] [place] [address]- 1574 Oct, [facility] [place] [facility] [address] [id number] [place] [address]- 2358 Oct, [facility] [place] [facility] [address] [id number] [place] [address]- 0562 Oct, [facility] [place] [facility] [address] [id number] [place] [address]- 3146 Oct, [facility] [place] [facility] [address] [id number] [place] [address]- 5316 Oct, [facility] [place] [facility] [address] [id number] [place] [address]- 4279 Oct, [facility] [place] [facility] [address] [id number] [place] [address]- 3983 Oct, [facility] [place] [facility] [address] [id number] [place] [address]- 5666 Oct, [facility] [place] [facility] [address] [id number] [place] [address]- 4163 Oct, [facility] [place] [facility] [address] [id number] [place] [address]- 9862 Oct, [facility] [place] [facility] [address] [id number] [place] [address]- 5329 Oct, [facility] [place] [facility] [address] [id number] [place] [address]- 0061 Sep, [facility] [place] [facility] [address] [id number] [place] [address]- 5877 Sep, [facility] [place] [facility] [address] [id number] [place] [address]- 5962 Sep, [facility] [place] [facility] [address] [id number] [place] [address]- 9768 Sep, [facility] [place] [facility] [address] [id number] [place] [address]- 4041 Aug, [facility] [place] [facility] [address] [id number] [place] [address]- 0856 Aug, [facility] [place] [facility] [address] [facility] [id number] [place] [address] [address]856 Aug, [facility] [address] [facility] [id number] [address]- 7501 Aug, [facility] [address] [facility] [id number] [address]- 7270 Aug, [facility] [address] [facility] [id number] [address]- 1091 Aug, [facility] [address] [facility] [id number] [address]- 6511 Aug, IMMUNIZATIONS No Known Immunizations SOCIAL HISTORY Never Assessed REASON FOR VISIT ambien refill PLAN OF CARE VITAL SIGNS MEDICATIONS [...]
--- OUTSIDE RECORDS SUMMARY | 2018-10-07 10:41 | XMS REPORT ---
Author Author RAMONE CELAYA Organization [facility] [place] Address [address] [place] [address] Care Team Providers Care Body Shop Manager Name Role Phone BELIARAMONE Unavailable PROBLEMS Type Condition ICD9-CM Code LZB39-EQ Code Onset Dates Condition Status SNOMED Code Problem Psychophysiological insomnia F51.04 Active 882244648 Problem Eating disorder, unspecified F50.9 Active 04727467 Problem Adjustment disorder with depressed mood F43.21 Active 72471128 Problem COPD exacerbation J44.1 Active 468464980 Problem Insomnia G47.00 Active 847456666 Problem BMI 45.0-49.9, adult Z68.42 Active 763603479 Problem OCD (obsessive compulsive disorder) F42 Active 236561511 Problem Chronic cellulitis L03.90 Active 925936494 Problem Moderate persistent asthma without complication J45.40 Active 611842642 Problem Body mass index (BMI) of 40.0-44.9 in adult Z68.41 Active 945815885 Problem Severe persistent asthma with acute exacerbation J45.51 Active 575262682 Problem Other obesity due to excess calories E66.09 Active 25625108590378 Problem Obesity (BMI 30.0-34.9) E66.9 Active 178114613258886 Problem SVETLANA treated with BiPAP G47.33 Active 54874508 Problem Anxiety F41.9 Active 97153016 Problem Asthma J45.909 Active 298271111 Problem Iron deficiency anemia, unspecified iron deficiency anemia type D50.9 Active 38035249 Problem Asthma exacerbation J45.901 Active 872596696 Problem Reactive depression F32.9 Active 59655239 Problem Seasonal allergic rhinitis due to pollen J30.1 Active 06364527 Problem Other chronic pain G89.29 Active 94284459 Problem Habitual self-excoriation F42.4 Active 129454547 ALLERGIES No Information ENCOUNTERS Encounter Location Date Diagnosis [facility] [place] [id number] [place] [address] 15505- 6926 January, Acute pain of left knee M25.562 and BMI 50.0-59.9, adult Z68.43 [place] [id number] [place] [address] 76692- 5668 January, [place] [address] 70193- 1739 January, COPD exacerbation J44.1 and Severe persistent asthma with acute exacerbation J45.51 [place] [address] 97347- 7056 January, Anxiety F41.9 and Psychophysiological insomnia F51.04 [place] [address] 97804- 6207 January, COPD exacerbation J44.1 and Left medial knee pain M25.562 [place] [address] 95804- 1336 Dec, COPD with exacerbation J44.1 ; BMI 45.0-49.9, adult Z68.42 ; SVETLANA treated with BiPAP G47.33 and Psychophysiological insomnia F51.04 [place] [id number] [place] [address] 75964- 3062 Dec, [place] [id number] [place] [address] 62923- 3438 Dec, Acute pain of left knee M25.562 ; Unspecified fall, initial encounter W19.XXXA ; Unspecified place in unspecified non-institutional (private ) residence as the place of occurrence of the external cause Y92.009 ; BMI 45.0- 49.9, adult Z68.42 and Severe persistent asthma with acute exacerbation J45.51 [place] [id number] [place] [address] 10035- 3729 Dec, Anxiety F41.9 and Psychophysiological insomnia F51.04 [place] [address] 94921- 0953 Nov, Psychophysiological insomnia F51.04 [facility] [place] [id number] [place] [address] 88898- 2435 Oct, [place] [address] 33276- 7445 Oct, Anxiety F41.9 [place] [address] 07152- 4371 Oct, [facility] [place] [address] 37914- 2481 Oct, Severe persistent asthma with acute exacerbation J45.51 ; Tobacco abuse Z72.0 and BMI 45.0-49.9, adult Z68.42 [place] [address] 26094- 6120 Oct, Psychophysiological insomnia F51.04 [place] [address] 89332- 3854 Sep, Anxiety F41.9 [place] [address] 10072- 4487 Sep, Anxiety F41.9 and Habitual self-excoriation F42.4 [place] [id number] [place] [address] 51427- 9397 Sep, Psychophysiological insomnia F51.04 [place] [id number] [place] [address] 22894- 3192 Aug, Anxiety F41.9 [place] [id number] [place] [address] 40475- 6240 Aug, Asthma J45.909 [place] [address] 43607- 9471 Aug, Anxiety F41.9 [facility] [id number] [place] [address] 35931 -4622 Aug, Acute bronchitis, unspecified organism J20.9 [place] [id number] [place] [address] 81720- 7322 Aug, Psychophysiological insomnia F51.04 [place] [address] 94744- 6029 Jul, Therapeutic drug monitoring Z51.81 [place] [address] 90416- 9598 Jul, [place] [address] 52093- 4289 Jul, Habitual self-excoriation F42.4 [place] [address] 70167- 7577 08 Jul, 2017 [place] [address] 96582- 2768 Jul, [place] [address] 35463- 0774 Jun, SVETLANA treated with BiPAP G47.33 ; Moderate persistent asthma without complication J45.40 ; Anxiety F41.9 ; Other obesity due to excess calories E66.09 ; Body mass index (BMI) of 40.0-44.9 in adult Z68.41 ; Psychophysiological insomnia F51.04 and Encounter for immunization Z23 [place] [id number] [place] [address] 07507- 4400 Jun, [place] [address] 57604- 7167 Jun, Habitual self-excoriation F42.4 ; Adjustment disorder with depressed mood F43.21 ; Psychophysiological insomnia F51.04 and Eating disorder , unspecified F50.9 [place] [id number] [place] [address] 63493- 9191 Jun, Visit for TB skin test Z11.1 [place] [id number] [place] [address] 66221- 3345 Jun, Habitual self-excoriation F42.4 and Psychophysiological insomnia F51.04 [facility] [place] [address] [address]- 2797 Jun, Asthma J45.909 [facility] [place] [address] [address]- 2350 May, Asthma J45.909 [facility] [place] [id number] [place] [address] 84699- 3371 May, [facility] [place] [address] [place] [address] 96567- 1258 May, Habitual self-excoriation F42.4 and Psychophysiological insomnia F51.04 [place] [id number] [place] [address] 81017- 8871 Apr, Habitual self-excoriation F42.4 ; Adjustment disorder with depressed mood F43.21 ; Psychophysiological insomnia F51.04 and Eating disorder , unspecified F50.9 [facility] [place] [address] [place] [address] 73476- 4545 Apr, [facility] [place] [id number] [place] [address] 27924- 6146 Apr, Habitual self-excoriation F42.4 ; Adjustment disorder with depressed mood F43.21 ; Psychophysiological insomnia F51.04 and Other jail (current) drug therapy Z79.899 [facility] [place] [address] [address]- 8168 Mar, [facility] [place] [address] [place] [address] 34619- 5833 Mar, [facility] [place] [id number] [place] [address] 35904- 0176 Mar, Anxiety F41.9 [facility] [place] [address] [place] [address] 95842- 8426 Feb, Asthma J45.909 [facility] [place] [id number] [place] [address] 16188- 8822 Feb, [place] [id number] [place] [address] 24091- 3461 Feb, Anxiety F41.9 [place] [id number] [place] [address] 68429- 6840 Feb, Asthma exacerbation J45.901 and Seasonal allergic rhinitis due to pollen J30.1 [place] [id number] [place] [address] 71281- 9916 January, [place] [id number] [place] [address] 57624- 7209 January, Anxiety F41.9 [place] [address] 09910- 0616 Dec, Therapeutic drug monitoring Z51.[address] 92762- 0627 Dec, Anxiety F41.9 and Asthma J45.909 [place] [id number] [place] [address] 14246- 9423 Nov, Asthma J45.909 [place] [id number] [place] [address] 64577- 8360 Nov, Anxiety F41.9 [place] [id number] [place] [address] 44980- 5048 Oct, Asthma exacerbation J45.901 ; Pain in right knee M25.561 ; Pain in left knee M25.562 and Open wound of eyebrow, left, subsequent encounter S01.102D [place] [id number] [place] [address] 40643- 2658 16 Oct, 2016 [facility] [address] [place] [address] 30715 -0953 11 Oct, 2016 Other viral agents as the cause of diseases classified elsewhere B97.89 and Acute upper respiratory infection, unspecified J06.9 [facility] [place] [id number] [address]- 4344 10 Oct, 2016 [facility] [place] [id number] [place] [address] 35802- 3026 08 Oct, 2016 [facility] [place] [id number] [place] [address] 38779- 6159 02 Oct, 2016 Anxiety F41.9 [facility] [place] [id number] [place] [address] 48952- 0717 Sep, [facility] [place] [id number] [place] [address] 21589- 4087 Sep, SVETLANA treated with BiPAP G47.33 and Asthma J45.909 [place] [id number] [place] [address] 54091- 9159 Sep, SVETLANA treated with BiPAP G47.33 ; Obesity (BMI 30.0-34.9) E66.9 and Reactive depression F32.9 [place] [id number] [place] [address] 76041- 6393 Sep, Anxiety F41.9 [place] [id number] [place] [address] 91738- 4797 Aug, [place] [id number] [place] [address] 69387- 7832 Aug, Insomnia G47.00 [place] [id number] [place] [address] 87199 2543 Aug, [facility] [place] [id number] [place] [address] 42453- 2548 Aug, SVETLANA treated with BiPAP G47.33 and On supplemental oxygen therapy Z99.81 [facility] [place] [id number] [place] [address] 54923- 2549 Jul, On supplemental oxygen therapy Z99.81 ; Obesity (BMI 30.0- 34.9) E66.9 and SVETLANA treated with BiPAP G47.33 [facility] [place] [id number] [place] [address] 31651- 3058 17 Jul, 2016 Mucus plugging of bronchi J98.09 ; On supplemental oxygen therapy Z99.81 ; Acute midline thoracic back pain M54.6 and SVETLANA treated with BiPAP G47.33 [facility] [place] [id number] [place] [address] 18770- 9559 16 Jul, 2016 [facility] [place] [id number] [place] [address] 15252- 6486 Jul, [facility] [place] [id number] [place] [address] 72167- 2401 Jul, [facility] [place] [id number] [place] [address] 40535- 9508 May, [facility] [place] [id number] [place] [address] 11086- 7348 May, [facility] [place] [id number] [place] [address] 43969- 4920 Apr, [facility] [place] [id number] [place] [address] 34550- 1311 Apr, [facility] [place] [id number] [place] [address] 94737- 7698 Apr, Insomnia G47.00 ; Anemia D64.9 ; OCD (obsessive compulsive disorder) F42 ; Anxiety F41.9 ; Asthma J45.909 and Obesity (BMI 30.0-34.9) E66.9 [facility] [place] [id number] [place] [address] 73080- 2806 Feb, [facility] [place] [id number] [place] [address] 81056- 1231 Feb, Insomnia G47.00 [facility] [place] [id number] [place] [address] 09798- 0047 Nov, [facility] [place] [address] 63572- 5242 Nov, [facility] [place] [address] [address]- 2872 Nov, [facility] [place] [address] [place] [address] 69333- 4379 Nov, OCD (obsessive compulsive disorder) F42 ; Anxiety F41.9 ; Insomnia G47.00 ; Anemia D64.9 and Asthma J45.909 [facility] [place] [id number] [place] [address] 29497- 9311 Nov, [facility] [place] [id number] [place] [address] 83194- 4722 Oct, [facility] [place] [id number] [place] [address] 99859- 6279 Aug, OCD (obsessive compulsive disorder) F42 ; Chronic cellulitis L03.90 ; Anxiety F41.9 ; Insomnia G47.00 ; Anemia D64.9 and Asthma J45.909 [facility] [place] [address] [place] [address] 23447- 0205 Aug, [facility] [place] [id number] [place] [address] 54841- 9736 Jul, [facility] [place] [address] [place] [address] 30426- 2761 Jul, OCD (obsessive compulsive disorder) F42 ; Chronic cellulitis L03.90 ; Anxiety F41.9 ; Insomnia G47.00 and Anemia D64.9 [facility] [place] [address] [address]- 8061 Dec, [facility] [place] [id number] [place] [address] 38524- 6176 Dec, [facility] [place] [address] [address]- 5780 Aug, [facility] [place] [id number] [place] [address] 37271- 8008 Aug, [facility] [place] [facility] [address] [id number] [place] [address]- 9319 Aug, [facility] [place] [facility] [address] [id number] [place] [address]- 3336 Aug, [facility] [place] [facility] [address] [id number] [place] [address]- 6904 Aug, [facility] [place] [facility] [address] [id number] [place] [address]- 3084 Aug, [facility] [place] [facility] [address] [id number] [place] [address]- 6909 Aug, [facility] [place] [facility] [address] [id number] [place] [address]- 7926 Jul, [facility] [place] [facility] [address] [id number] [place] [address]- 0133 Jul, [facility] [place] [facility] [address] [id number] [place] [address]- 9432 Jul, [facility] [place] [facility] [address] [id number] [place] [address]- 6089 Jul, [facility] [place] [facility] [address] [id number] [place] [address]- 7246 Apr, [facility] [place] [facility] [address] [id number] [place] [address]- 5181 Apr, [facility] [place] [facility] [address] [id number] [address]- 9998 Feb, [facility] [place] [facility] [address] [id number] [place] [address]- 7778 Feb, [facility] [place] [facility] [address] [id number] [place] [address]- 5997 Feb, [facility] [place] [facility] [address] [id number] [place] [address]- 0246 Feb, [facility] [place] [facility] [address] [id number] [place] [address]- 8469 January, [facility] [place] [facility] [address] [id number] [place] [address]- 7822 January, [facility] [place] [facility] [address] [id number] [place] [address]- 3047 January, [facility] [place] [facility] [address] [id number] [place] [address]- 0644 Dec, [facility] [place] [facility] [address] [id number] [place] [address]- 2581 Dec, [facility] [place] [facility] [address] [id number] [place] [address]- 7549 Dec, [facility] [place] [facility] [address] [id number] [place] [address]- 0836 Dec, [facility] [place] [facility] [address] [id number] [place] [address]- 0771 Nov, [facility] [place] [facility] [address] [id number] [place] [address]- 3995 Nov, [facility] [place] [facility] [address] [id number] [place] [address]- 6946 Nov, [facility] [place] [facility] [address] [id number] [place] [address]- 4245 Nov, [facility] [place] [facility] [address] [id number] [place] [address]- 0455 Nov, [facility] [place] [facility] [address] [id number] [place] [address]- 2012 Nov, [facility] [place] [facility] [address] [id number] [place] [address]- 9973 Oct, [facility] [place] [facility] [address] [id number] [place] [address]- 7350 Oct, [facility] [place] [facility] [address] [id number] [place] [address]- 4493 Oct, [facility] [place] [facility] [address] [id number] [place] [address]- 8764 Oct, [facility] [place] [facility] [address] [id number] [place] [address]- 4266 Oct, [facility] [place] [facility] [address] [id number] [place] [address]- 7696 Oct, [facility] [place] [facility] [address] [id number] [place] [address]- 3198 Oct, [facility] [place] [facility] [address] [id number] [place] [address]- 7447 Oct, [facility] [place] [facility] [address] [id number] [place] [address]- 5877 Oct, [facility] [place] [facility] [address] [id number] [place] [address]- 3724 Oct, [facility] [place] [facility] [address] [id number] [place] [address]- 1042 Oct, [facility] [place] [facility] [address] [id number] [place] [address]- 3919 Oct, [facility] [place] [facility] [address] [id number] [place] [address]- 9505 Sep, [facility] [place] [facility] [address] [id number] [place] [address]- 6106 Sep, [facility] [place] [facility] [address] [id number] [place] [address]- 5022 Sep, [facility] [place] [facility] [address] [id number] [place] [address]- 0514 Sep, [facility] [place] [facility] [address] [id number] [place] [address]- 3259 Aug, [facility] [place] [facility] [address] [id number] [place] [address]- 4410 Aug, [facility] [place] [facility] [address] [facility] [id number] [place] [address]- 5191 Aug, [facility] [place] [address] [facility] [id number] [address]- 4547 Aug, [facility] [place] [address] [facility] [id number] [address]- 9173 Aug, [facility] [place] [address] [facility] [id number], [place] [address]- 1562 Aug, [facility] [place] [address] [facility] [id number] [address] Aug, IMMUNIZATIONS No Known Immunizations SOCIAL HISTORY Never Assessed REASON FOR VISIT ativan refill PLAN OF CARE VITAL SIGNS MEDICATIONS [...] History sepsis Hospitalization History Acute hypoxic resp distress--[facility] 07/28/16 Hospitalization History Denies any past psychiatric hospitalization
--- OUTSIDE RECORDS SUMMARY | 2018-10-07 10:42 | XMS REPORT ---
Author Author BRICE RAMIREZ Organization [facility] Address [address] [place] [address] Care Team Providers Care Public Information Coordinator Name Role Phone BRICE RAMIREZ Unavailable PROBLEMS Type Condition ICD9-CM Code ZPW25-SE Code Onset Dates Condition Status SNOMED Code Problem Other chronic pain G89.29 Active 10091246 Problem Reactive depression F32.9 Active 33072564 Problem Iron deficiency anemia, unspecified iron deficiency anemia type D50.9 Active 98772332 Problem Eating disorder, unspecified F50.9 Active 71972295 Problem Adjustment disorder with depressed mood F43.21 Active 18482250 Problem Seasonal allergic rhinitis due to pollen J30.1 Active 77023165 Problem Asthma exacerbation J45.901 Active 348389998 Problem Psychophysiological insomnia F51.04 Active 901293605 Problem Habitual self-excoriation F42.4 Active 205242119 Problem Chronic cellulitis L03.90 Active 763990299 Problem OCD (obsessive compulsive disorder) F42 Active 655388812 Problem Obesity (BMI 30.0-34.9) E66.9 Active 691505447732064 Problem Insomnia G47.00 Active 805492089 Problem Asthma J45.909 Active 563863149 Problem Anxiety F41.9 Active 22551335 Problem SVETLANA treated with BiPAP G47.33 Active 05666532 ALLERGIES No Information SOCIAL HISTORY Never Assessed [...]
--- OUTSIDE RECORDS SUMMARY | 2018-10-07 10:42 | XMS REPORT ---
Author Author BRICE RAMIREZ [facility] Address [address] [place] [address] Care Team Providers Care Condenser Operator Name Role Phone BRICE RAMIREZ Unavailable PROBLEMS Type Condition ICD9-CM Code XWT26-[id number] Code Onset Dates Condition Status SNOMED Code Problem Other chronic pain G89.29 Active 38051354 Problem Reactive depression F32.9 Active 19249793 Problem Iron deficiency anemia, unspecified iron deficiency anemia type D50.9 Active 49291348 Problem Eating disorder, unspecified F50.9 Active 95377729 Problem Adjustment disorder with depressed mood F43.21 Active 62357035 Problem Seasonal allergic rhinitis due to pollen J30.1 Active 60480410 Problem Asthma exacerbation J45.901 Active 256539873 Problem Psychophysiological insomnia F51.04 Active 141677235 Problem Habitual self-excoriation F42.4 Active 785033069 Problem Chronic cellulitis L03.90 Active 629281303 Problem OCD (obsessive compulsive disorder) F42 Active 338317895 Problem Obesity (BMI 30.0-34.9) E66.9 Active 686521867432422 Problem Insomnia G47.00 Active 439428813 Problem Asthma J45.909 Active 111173931 Problem Anxiety F41.9 Active 71616158 Problem SVETLANA treated with BiPAP G47.33 Active 22108490 ALLERGIES Substance Reaction Event Type Date Status Morphine Sulfate itching Drug Allergy Sep, Active SOCIAL HISTORY No smoking Hx information available PLAN OF CARE Activity Details Follow Up 3 Months [facility] for depression and labs Reason: VITAL SIGNS Height 65 in 2016-09-30 Weight 238.4 lbs 2016-09-30 Temperature 98.7 degrees Fahrenheit 2016-09-30 Heart Rate 74 bpm 2016-09-30 Respiratory Rate 18 2016-09-30 BMI 39.67 kg/m2 2016-09-30 Blood pressure systolic 116 mmHg 2016-09-30 Blood pressure diastolic 78 mmHg 2016-09-30 MEDICATIONS Medication Instructions Dosage Frequency Start Date End Date Duration Status Ventolin HFA 90 MCG/ACT Inhalation every 4 hrs 2 puffs as needed 4h Active Zolpidem Tartrate 10 mg TAKE 1 TABLET BY MOUTH EVERY NIGHT AT BEDTIME NEEDED Active PredniSONE 50 mg Orally Once a day 1 tablet 24h Sep, Sep, 5 days Active Hydrocodone-Acetaminophen 5-325 MG Orally BID PRN pain 1 tablet as needed Sep, Oct, 30 days Active Celexa 10 MG Orally Once a day 1/2 tablet for the first week and then 1 full talbet 24h Aug, Active Ativan 0.5 MG Orally 2 times a day 1 tablet as needed 12h Apr, Active Symbicort 160-4.5 mcg/actuation Inhalation Twice a day 2 puffs 12h Oct, Active Lortab 5-325 MG Orally every 6 hrs 1 tablet as needed 6h Jul, Aug, 1 month Active RESULTS No Results PROCEDURES Procedure Date Ordered Related Diagnosis Body Site Office Visit, Est Pt., Level 4 Sep 30, 2016 IMMUNIZATIONS No Known Immunizations
--- OUTSIDE RECORDS SUMMARY | 2018-10-07 10:43 | XMS REPORT ---
Author Author SATHYA VALDES [facility] Address [address] [place] [address] Care Team Providers Care Accounting Technician Name Role Phone SATHYA VALDES Unavailable PROBLEMS Type Condition ICD9-CM Code [id number] Code Onset Dates Condition Status SNOMED Code Problem Anemia D64.9 Active 817212443 Problem Asthma J45.909 Active 230854261 Problem Obesity (BMI 30.0-34.9) E66.9 Active 201656007129894 Problem Anxiety F41.9 Active 48856101 Problem Insomnia G47.00 Active 286990300 Problem OCD (obsessive compulsive disorder) F42 Active 983226995 Problem Chronic cellulitis L03.90 Active 216964491 ALLERGIES Unknown Allergies SOCIAL HISTORY No smoking Hx information available PLAN OF CARE VITAL SIGNS MEDICATIONS Unknown Medications RESULTS No Results PROCEDURES No Known procedures IMMUNIZATIONS No Known Immunizations
--- OUTSIDE RECORDS SUMMARY | 2018-10-07 10:43 | XMS REPORT ---
Author Author BRICE RAMIREZ [facility] Address [address] [place] [address] Care Team Providers Care Health And Safety Advisor Name Role Phone BRICE RAMIREZ Unavailable PROBLEMS Type Condition ICD9-CM Code QIO09-LP Code Onset Dates Condition Status SNOMED Code Problem Asthma exacerbation J45.901 Active 422784252 Problem Habitual self-excoriation F42.4 Active 691527850 Problem Seasonal allergic rhinitis due to pollen J30.1 Active 11499597 Problem Other obesity due to excess calories E66.09 Active 81402196924060 Problem Body mass index (BMI) of 40.0-44.9 in adult Z68.41 Active 306939616 Problem Adjustment disorder with depressed mood F43.21 Active 05148233 Problem Psychophysiological insomnia F51.04 Active 751633297 Problem Moderate persistent asthma without complication J45.40 Active 897784249 Problem Eating disorder, unspecified F50.9 Active 30385978 Problem Insomnia G47.00 Active 410555365 Problem Anxiety F41.9 Active 48722071 Problem OCD (obsessive compulsive disorder) F42 Active 198941582 Problem Chronic cellulitis L03.90 Active 702928949 Problem SVETLANA treated with BiPAP G47.33 Active 35995220 Problem Iron deficiency anemia, unspecified iron deficiency anemia type D50.9 Active 78707191 Problem Obesity (BMI 30.0-34.9) E66.9 Active 307360361887785 Problem Reactive depression F32.9 Active 80590936 Problem Asthma J45.909 Active 519186957 Problem Other chronic pain G89.29 Active 32807907 ALLERGIES No Information SOCIAL HISTORY Never Assessed PLAN OF CARE VITAL SIGNS MEDICATIONS Medication Instructions Dosage Frequency Start Date End Date Duration Status Ativan 0.5 MG Orally 2 times a day 1 tablet as needed 12h 22 Apr, 2016 Active Zolpidem Tartrate 10 MG TAKE ONE TABLET BY MOUTH ONCE DAILY EVERY NIGHT AT BEDTIME NEEDED. 30 Active RESULTS No Results PROCEDURES No Known procedures IMMUNIZATIONS No Known Immunizations MEDICAL (GENERAL) HISTORY Type Description Date Medical History asthma Medical History anxiety Medical History gastric bypass Medical History anemia Medical History sleep apnea treated with biPAP Surgical History gastric bypass 2002 Hospitalization History surgery Hospitalization History anemia Hospitalization History sepsis Hospitalization History Acute hypoxic resp distress--[facility] 07/28/16 Hospitalization History Denies any past psychiatric hospitalization
--- OUTSIDE RECORDS SUMMARY | 2018-10-07 10:43 | XMS REPORT ---
Author Author BRICE RAMIREZ Organization [facility] Address [address] [place] [address] Care Team Providers Care Director Of Enterprise Architecture Name Role Phone BRICE RAMIREZ Unavailable PROBLEMS Type Condition ICD9-CM Code STO92-MI Code Onset Dates Condition Status SNOMED Code Problem Anemia D64.9 Active 611283304 Problem Anxiety F41.9 Active 69542055 Problem Insomnia G47.00 Active 589931132 Assessment SVETLANA treated with BiPAP G47.33 Aug, Active 06780907 Problem SVETLANA treated with BiPAP G47.33 Active 05059533 Problem On supplemental oxygen therapy Z99.81 Active 773753237224 Problem OCD (obsessive compulsive disorder) F42 Active 248745348 Problem Chronic cellulitis L03.90 Active 162706200 Problem Asthma J45.909 Active 831400492 Problem Obesity (BMI 30.0-34.9) E66.9 Active 839855820847226 ALLERGIES Substance Reaction Event Type Date Status Morphine Sulfate itching Drug Allergy Aug, Active SOCIAL HISTORY No smoking Hx information available PLAN OF CARE VITAL SIGNS Height 65 in 2016-08-21 Weight 243.1 lbs 2016-08-21 Heart Rate 96 bpm 2016-08-21 Respiratory Rate 18 2016-08-21 Oximetry on room air:98 % 2016-08-21 BMI 40.45 kg/m2 2016-08-21 Blood pressure systolic 118 mmHg 2016-08-21 Blood pressure diastolic 76 mmHg 2016-08-21 MEDICATIONS Medication Instructions Dosage Frequency Start Date End Date Duration Status Ventolin HFA 90 MCG/ACT Inhalation every 4 hrs 2 puffs as needed 4h Active Ambien 10 MG Orally Once a day 1 tablet at bedtime as needed 24h Jul, 30 Active Symbicort 160-4.5 mcg/actuation Inhalation Twice a day 2 puffs 12h 27 Oct, 2013 Active Lortab 5-325 MG Orally every 6 hrs 1 tablet as needed 6h Jul, Aug, 1 month Active Ativan 0.5 MG Orally 2 times a day 1 tablet as needed 12h 22 Apr, 2016 Active RESULTS No Results PROCEDURES Procedure Date Ordered Related Diagnosis Body Site MEASURE BLOOD OXYGEN LEVEL Aug 21, 2016 Office Visit, Est Pt., Level 4 Aug 21, 2016 IMMUNIZATIONS No Known Immunizations
--- OUTSIDE RECORDS SUMMARY | 2018-10-07 10:43 | XMS REPORT ---
Author Author SATHYA VALDES [facility] Address [address] [place] [address] Care Team Providers Care Magnesium Mill Operator Name Role Phone SATHYA VALDES Unavailable PROBLEMS Type Condition ICD9-CM Code XYB13-FP Code Onset Dates Condition Status SNOMED Code Problem Anemia D64.9 Active 938778068 Problem Asthma J45.909 Active 717324064 Problem Obesity (BMI 30.0-34.9) E66.9 Active 109997078581607 Problem Anxiety F41.9 Active 12979521 Problem Insomnia G47.00 Active 041132376 Problem OCD (obsessive compulsive disorder) F42 Active 010676577 Problem Chronic cellulitis L03.90 Active 266209936 ALLERGIES Unknown Allergies SOCIAL HISTORY No smoking Hx information available PLAN OF CARE VITAL SIGNS MEDICATIONS Unknown Medications RESULTS No Results PROCEDURES No Known procedures IMMUNIZATIONS No Known Immunizations
--- OUTSIDE RECORDS SUMMARY | 2018-10-07 10:43 | XMS REPORT ---
Author Author BRICE RAMIREZ Organization [facility] Address [address] [place] [address] Care Team Providers Care Medical Device Sales Representative Name Role Phone BRICE RAMIREZ Unavailable PROBLEMS Type Condition ICD9-CM Code DGX24-NB Code Onset Dates Condition Status SNOMED Code Problem Psychophysiological insomnia F51.04 Active 846242254 Problem Eating disorder, unspecified F50.9 Active 79884011 Problem Adjustment disorder with depressed mood F43.21 Active 85475630 Problem COPD exacerbation J44.1 Active 088199505 Problem Insomnia G47.00 Active 457915126 Problem BMI 45.0-49.9, adult Z68.42 Active 846722352 Problem OCD (obsessive compulsive disorder) F42 Active 523114368 Problem Chronic cellulitis L03.90 Active 867506325 Problem Moderate persistent asthma without complication J45.40 Active 132362799 Problem Body mass index (BMI) of 40.0-44.9 in adult Z68.41 Active 178517265 Problem Severe persistent asthma with acute exacerbation J45.51 Active 085457663 Problem Other obesity due to excess calories E66.09 Active 73389334427469 Problem Obesity (BMI 30.0-34.9) E66.9 Active 099174936269061 Problem SVETLANA treated with BiPAP G47.33 Active 21122945 Problem Anxiety F41.9 Active 04713949 Problem Asthma J45.909 Active 388817531 Problem Iron deficiency anemia, unspecified iron deficiency anemia type D50.9 Active 54043241 Problem Asthma exacerbation J45.901 Active 092418322 Problem Reactive depression F32.9 Active 77226990 Problem Seasonal allergic rhinitis due to pollen J30.1 Active 60107763 Problem Other chronic pain G89.29 Active 21987725 Problem Habitual self-excoriation F42.4 Active 426877369 ALLERGIES Substance Reaction Event Type Date Status Morphine Sulfate itching Drug Allergy Jun, Active ENCOUNTERS Encounter Location Date Diagnosis [place] [id number] [place] [address] 86467- 3481 Feb, [place] [address] [place] [id number] [place] [address] 33919- 7593 January, [place] [address] [place] [id number] [place] [address] 66655- 4146 January, COPD exacerbation J44.1 and Severe persistent asthma with acute exacerbation J45.51 [place] [address] [place] [id number] [place] [address] 22442- 6348 January, Anxiety F41.9 and Psychophysiological insomnia F51.04 [place] [address] 35463- 0605 January, COPD exacerbation J44.1 and Left medial knee pain M25.562 [place] [address] 30450- 7861 Dec, COPD with exacerbation J44.1 ; BMI 45.0-49.9, adult Z68.42 ; SVETLANA treated with BiPAP G47.33 ; Habitual self-excoriation F42.4 and Psychophysiological insomnia F51.04 [place] [address] [place] [id number] [place] [address] 32088- 5875 Dec, [place] [address] [place] [id number] [place] [address] 38943- 8019 Dec, Acute pain of left knee M25.562 ; Unspecified fall, initial encounter W19.XXXA ; Unspecified place in unspecified non-institutional (private ) residence as the place of occurrence of the external cause Y92.009 ; BMI 45.0- 49.9, adult Z68.42 and Severe persistent asthma with acute exacerbation J45.51 [place] [address] [place] [id number] [place] [address] 63769- 5732 Dec, Anxiety F41.9 and Psychophysiological insomnia F51.04 [place] [address] [place] [id number] [place] [address] 12164- 4193 Nov, Psychophysiological insomnia F51.04 [facility] [address] [place] [address] [id number] [place] [address] 85697- 7831 Oct, [facility] [address] [place] [id number] [place] [address] 57454- 7954 Oct, Anxiety F41.9 [place] [address] [place] [id number] [place] [address] 15031- 3636 Oct, [facility] [address] [place] [id number] [place] [address] 12344- 8586 Oct, Severe persistent asthma with acute exacerbation J45.51 ; Tobacco abuse Z72.0 and BMI 45.0-49.9, adult Z68.42 [place] [address] [place] [id number] [place] [address] 63735- 2912 Oct, Psychophysiological insomnia F51.04 [place] [address] [place] [id number] [place] [address] 91131- 0622 Sep, Anxiety F41.9 [place] [address] [place] [id number] [place] [address] 21144- 3259 Sep, Anxiety F41.9 and Habitual self-excoriation F42.4 [place] [address] [place] [id number] [place] [address] 91473- 0462 Sep, Psychophysiological insomnia F51.04 [place] [address] [place] [id number] [place] [address] 34878- 7408 Aug, Anxiety F41.9 [place] [address] [place] [id number] [place] [address] 66526- 4019 Aug, Asthma J45.909 [place] [address] [place] [id number] [place] [address] 06744- 5350 Aug, Anxiety F41.9 [facility] [id number] [place] [address] 06327 -0712 Aug, Acute bronchitis, unspecified organism J20.9 [place] [address] [place] [id number] [place] [address] 97551- 4094 Aug, Psychophysiological insomnia F51.04 [place] [address] 97106- 2164 Jul, Therapeutic drug monitoring Z51.81 [place] [address] 52904- 6267 Jul, [place] [address] 28015- 4737 Jul, Habitual self-excoriation F42.4 [place] [address] 74713- 9544 08 Jul, 2017 [place] [address] 23694- 8170 Jul, [place] [address] 92217- 6445 Jun, SVETLANA treated with BiPAP G47.33 ; Moderate persistent asthma without complication J45.40 ; Anxiety F41.9 ; Other obesity due to excess calories E66.09 ; Body mass index (BMI) of 40.0-44.9 in adult Z68.41 ; Psychophysiological insomnia F51.04 and Encounter for immunization Z23 [place] [address] [place] [id number] [place] [address] 51147- 5439 Jun, [place] [address] 43403- 4907 Jun, Habitual self-excoriation F42.4 ; Adjustment disorder with depressed mood F43.21 ; Psychophysiological insomnia F51.04 and Eating disorder , unspecified F50.9 [place] [address] 25469- 1454 Jun, Visit for TB skin test Z11.[address] 57762- 1642 Jun, Habitual self-excoriation F42.4 and Psychophysiological insomnia F51.04 [facility] [address] [place] [address] 14246- 9056 Jun, Asthma J45.909 [facility] [address] [place] [address] 92145- 6205 May, Asthma J45.909 [facility] [address] [place] [id number] [place] [address] 76447- 1147 May, [facility] [address] [place] [id number] [place] [address] 46166- 7542 May, Habitual self-excoriation F42.4 and Psychophysiological insomnia F51.04 [place] [address] [place] [id number] [place] [address] 29013- 7494 Apr, Habitual self-excoriation F42.4 ; Adjustment disorder with depressed mood F43.21 ; Psychophysiological insomnia F51.04 and Eating disorder , unspecified F50.9 [facility] [address] [place] [address] 66836- 2418 Apr, [facility] [address] [place] [id number] [place] [address] 91459- 0065 Apr, Habitual self-excoriation F42.4 ; Adjustment disorder with depressed mood F43.21 ; Psychophysiological insomnia F51.04 and 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 [facility] [address] [place] [id number] [place] [address] 44721- 9228 Mar, [facility] [address] [place] [id number] [place] [address] 67408- 0430 Mar, [place] [address] [place] [id number] [place] [address] 90186- 6937 Mar, Anxiety F41.9 [facility] [address] [place] [id number] [place] [address] 72006- 3719 Feb, Asthma J45.909 [facility] [address] [place] [id number] [place] [address] 87528- 1241 Feb, [place] [address] 53757- 8618 Feb, Anxiety F41.9 [place] [address] 77398- 9163 Feb, Asthma exacerbation J45.901 and Seasonal allergic rhinitis due to pollen J30.1 [place] [address] 93477- 6304 January, [place] [address] 59213- 0648 January, Anxiety F41.9 [place] [address] 83592- 9145 Dec, Therapeutic drug monitoring Z51.[address] 60012- 2910 Dec, Anxiety F41.9 and Asthma J45.909 [place] [address] 70420- 4348 Nov, Asthma J45.909 [place] [address] 04709- 7090 Nov, Anxiety F41.9 [place] [address] [place] [id number] [place] [address] 78113- 1615 Oct, Asthma exacerbation J45.901 ; Pain in right knee M25.561 ; Pain in left knee M25.562 and Open wound of eyebrow, left, subsequent encounter S01.102D [place] [address] 30670- 3155 16 Oct, 2016 [facility] [address] [place] [id number] [place] [address] 50148 -8261 11 Oct, 2016 Other viral agents as the cause of diseases classified elsewhere B97.89 and Acute upper respiratory infection, unspecified J06.9 [facility] [address] [place] [address] 05151- 2173 10 Oct, 2016 [facility] [address] [place] [id number] [place] [address] 81953- 6676 08 Oct, 2016 [facility] [address] [place] [id number] [place] [address] 01429- 3652 02 Oct, 2016 Anxiety F41.9 [place] [address] 02093- 8884 Sep, [place] [address] [place] [id number] [place] [address] 39715- 0730 Sep, SVETLANA treated with BiPAP G47.33 and Asthma J45.909 [place] [address] [place] [id number] [place] [address] 87798- 5440 Sep, SVETLANA treated with BiPAP G47.33 ; Obesity (BMI 30.0-34.9) E66.9 and Reactive depression F32.9 [place] [address] [place] [id number] [place] [address] 69753- 9538 Sep, Anxiety F41.9 [place] [address] [place] [id number] [place] [address] 85086- 7641 Aug, [place] [address] [place] [id number] [place] [address] 01906- 8370 Aug, Insomnia G47.00 [place] [address] [place] [id number] [place] [address] 95876 2545 Aug, [place] [address] [place] [id number] [place] [address] 74547- 254 Aug, SVETLANA treated with BiPAP G47.33 and On supplemental oxygen therapy Z99.81 [place] [address] [place] [address] 56599- 2545 Jul, On supplemental oxygen therapy Z99.81 ; Obesity (BMI 30.0- 34.9) E66.9 and SVETLANA treated with BiPAP G47.33 [facility] [address] [place] [id number] [place] [address] 66630- 6160 17 Jul, 2016 Mucus plugging of bronchi J98.09 ; On supplemental oxygen therapy Z99.81 ; Acute midline thoracic back pain M54.6 and SVETLANA treated with BiPAP G47.33 [facility] [address] [place] [id number] [place] [address] 04297- 0570 16 Jul, 2016 [facility] [address] 36810- 1608 Jul, [facility] [address] [place] [id number] [place] [address] 64507- 0522 Jul, [facility] [address] [place] [id number] [place] [address] 64081- 2342 May, [facility] [address] [place] [id number] [place] [address] 44288- 0616 May, [facility] [address] [place] [id number] [place] [address] 69344- 9837 Apr, [facility] [address] [place] [id number] [place] [address] 89016- 0683 Apr, [facility] [address] [place] [id number] [place] [address] 16997- 7992 Apr, Insomnia G47.00 ; Anemia D64.9 ; OCD (obsessive compulsive disorder) F42 ; Anxiety F41.9 ; Asthma J45.909 and Obesity (BMI 30.0-34.9) E66.9 [facility] [address] [place] [id number] [place] [address] 99429- 5233 Feb, [facility] [address] [place] [id number] [place] [address] 02685- 9677 Feb, Insomnia G47.00 [facility] [address] [place] [id number] [place] [address] 32302- 1132 Nov, [facility] [address] 06086- 5789 15 Nov, 2015 [facility] [address] [place] [address] 87729- 7101 Nov, [facility] [address] [place] [id number] [place] [address] 66936- 0162 Nov, OCD (obsessive compulsive disorder) F42 ; Anxiety F41.9 ; Insomnia G47.00 ; Anemia D64.9 and Asthma J45.909 [facility] [address] [place] [id number] [place] [address] 56582- 5938 Nov, [facility] [address] [place] [id number] [place] [address] 85669- 4240 Oct, [facility] [address] [place] [id number] [place] [address] 28823- 5678 Aug, OCD (obsessive compulsive disorder) F42 ; Chronic cellulitis L03.90 ; Anxiety F41.9 ; Insomnia G47.00 ; Anemia D64.9 and Asthma J45.909 [facility] [address] [place] [id number] [place] [address] 13659- 0521 Aug, [facility] [address] [place] [id number] [place] [address] 05465- 2961 Jul, [facility] [address] [place] [id number] [place] [address] 91382- 6147 Jul, OCD (obsessive compulsive disorder) F42 ; Chronic cellulitis L03.90 ; Anxiety F41.9 ; Insomnia G47.00 and Anemia D64.9 [facility] [address] [place] [address] 34393- 9954 Dec, [facility] [address] [id number] [place] [address] 49273- 5579 Dec, [facility] [address] [id number] [place] [address] 29991- 5374 Aug, [facility] [address] [id number] [place] [address] 93078- 5406 Aug, [facility] [place] [facility] [address] [id number] [place] [address]- 2301 Aug, [facility] [place] [facility] [address] [id number] [place] [address]- 0707 Aug, [facility] [place] [facility] [address] [id number] [place] [address]- 5890 Aug, [facility] [place] [facility] [address] [id number] [place] [address]- 9148 Aug, [facility] [place] [facility] [address] [id number] [place] [address]- 6740 Aug, [facility] [place] [facility] [address] [id number] [place] [address]- 1950 Jul, [facility] [place] [facility] [address] [id number] [place] [address]- 9796 Jul, [facility] [place] [facility] [address] [id number] [place] [address]- 6250 Jul, [facility] [place] [facility] [address] [id number] [place] [address]- 4196 Jul, [facility] [place] [facility] [address] [id number] [place] [address]- 6954 Apr, [facility] [place] [facility] [address] [id number] [place] [address]- 2283 Apr, [facility] [place] [facility] [address] [id number], [place] [address]- 0643 Feb, [facility] [place] [facility] [address] [id number] [place] [address]- 9771 Feb, [facility] [place] [facility] [address] [id number] [place] [address]- 4878 Feb, [facility] [place] [facility] [address] [id number] [place] [address]- 2201 Feb, [facility] [place] [facility] [address] [id number], [place] [address]- 9663 January, [facility] [address] [id number] [place] [address]- 7328 January, [facility] [place] [facility] [address] [id number] [place] [address]- 8337 January, [facility] [place] [facility] [address] [id number] [place] [address]- 9901 Dec, [facility] [place] [facility] [address] [id number] [place] [address]- 5570 Dec, [facility] [place] [facility] [address] [id number] [place] [address]- 3648 Dec, [facility] [place] [facility] [address] [id number] [place] [address]- 2962 Dec, [facility] [place] [facility] [address] [id number] [place] [address]- 4232 Nov, [facility] [place] [facility] [address] [id number] [place] [address]- 6366 Nov, [facility] [place] [facility] [address] [id number] [place] [address]- 3784 Nov, [facility] [place] [facility] [address] [facility] [id number] [place] [address]- 7680 Nov, [facility] [place] [facility] [address] [id number] [place] [address]- 2305 Nov, [facility] [place] [facility] [address] [id number] [place] [address]- 5889 Nov, [facility] [place] [facility] [address] [id number] [place] [address]- 3324 Oct, [facility] [place] [facility] [address] [id number] [place] [address]- 9664 Oct, [facility] [place] [facility] [address] [facility] [id number] [place] [address]- 2398 Oct, [facility] [place] [facility] [address] [id number] [place] [address]- 9045 Oct, [facility] [place] [facility] [address] [id number] [place] [address]- 5156 Oct, [facility] [place] [facility] [address] [id number] [place] [address]- 2666 Oct, [facility] [place] [facility] [address] [id number] [place] [address] 2546 Oct, [facility] [place] [facility] [address] [id number] [place] [address] 2540 Oct, [facility] [place] [facility] [address] [id number] [place] [address]- 1736 Oct, [facility] [place] [facility] [address] [id number] [place] [address]- 0506 Oct, [facility] [place] [facility] [address] [id number] [place] [address]- 7609 Oct, [facility] [place] [facility] [address] [id number] [place] [address]- 7891 Oct, [facility] [place] [facility] [address] [id number] [place] [address]- 7871 Sep, [facility] [place] [facility] [address] [id number] [place] [address]- 6156 Sep, [facility] [place] [facility] [address] [id number] [place] [address]- 7403 Sep, [facility] [place] [facility] [address] [id number] [place] [address]- 1805 Sep, [facility] [place] [facility] [address] [id number] [place] [address]- 5858 Aug, [facility] [place] [facility] [address] [id number] [place] [address]- 4079 Aug, [facility] [place] [facility] [address] [facility] [id number] [place] [address]- 8921 Aug, [facility] [address] [facility] [id number], [place] [address]- 0944 Aug, [facility] [address] [facility] [id number], [place] [address]- 4995 Aug, [facility] [address] [facility] [id number], [place] [address]- 9161 Aug, [facility] [address] [facility] [id number], [place] [address]- 1810 Aug, IMMUNIZATIONS Vaccine Route Administration Date Status FLUARIX QUAD (3 AND UP) 2016 IM Intramuscular Jul 21, 2017 Administered SOCIAL HISTORY Never Assessed REASON FOR VISIT Pain management (chronic)-NACHO Capellan PLAN OF CARE Activity Details Follow Up 2 Months with Linda for Asthma/weight management Reason: VITAL SIGNS Height 65 in 2017-07-21 Weight 251 lbs 2017-07-21 Temperature 98.1 degrees Fahrenheit 2017-07-21 Heart Rate 90 bpm 2017-07-21 Respiratory Rate 20 2017-07-21 BMI 41.76 kg/m2 2017-07-21 Blood pressure systolic 118 mmHg 2017-07-21 Blood pressure diastolic 70 mmHg 2017-07-21 MEDICATIONS Medication Instructions Dosage Frequency Start Date End Date Duration Status Ativan 1 MG Orally twice a day as needed 1 tablet 30 days Active Zolpidem Tartrate 10 mg Orally at bedtime as needed 1 tablet 30 days Active Ipratropium-Albuterol 20-100 MCG/ACT Inhalation Four times a day 1 puff 6h Nov, Active Hydrocodone-Acetaminophen 5-325 MG Orally 2 times a day as needed 1 tablet May, Active Celexa 20 MG Orally Once a day 1 24h Active Symbicort 160-4.5 mcg/act Inhalation Twice a day 2 puffs 12h 27 Oct, 2013 Active Ventolin HFA 90 MCG/ACT Inhalation every 4 hrs 2 puffs as needed 4h Active ProAir HFA 108 (90 Base) MCG/ACT Inhalation every 6 hrs 2 puffs as needed 6h 31 Jun, 2017 Active RESULTS No Results PROCEDURES Procedure Date Ordered Result Body Site FLUARIX QUAD (3 AND UP) 2017 Jul 21, 2017 SINGLE IMMUNIZATION ADMIN Jul 21, 2017 INSTRUCTIONS MEDICATIONS ADMINISTERED No Known Medications MEDICAL (GENERAL) HISTORY Type Description Date Medical History asthma Medical History anxiety Medical History gastric bypass Medical History anemia Medical History sleep apnea treated with biPAP Surgical History gastric bypass 2002 Hospitalization History surgery Hospitalization History anemia Hospitalization History sepsis Hospitalization History Acute hypoxic resp distress--[facility] 07/28/16 Hospitalization History Denies any past psychiatric hospitalization
--- OUTSIDE RECORDS SUMMARY | 2018-10-07 10:43 | XMS REPORT ---
Author Author BRICE RAMIREZ Organization [facility] Address [address] [place] [address] Care Team Providers Care In Store Marketing Associate Name Role Phone BRICE RAMIREZ Unavailable PROBLEMS Type Condition ICD9-CM Code RIH83-UG Code Onset Dates Condition Status SNOMED Code Problem Other chronic pain G89.29 Active 08054206 Problem Reactive depression F32.9 Active 43052230 Problem Iron deficiency anemia, unspecified iron deficiency anemia type D50.9 Active 01435516 Problem Eating disorder, unspecified F50.9 Active 58948411 Problem Adjustment disorder with depressed mood F43.21 Active 89847389 Problem Seasonal allergic rhinitis due to pollen J30.1 Active 64638115 Problem Asthma exacerbation J45.901 Active 594963389 Problem Psychophysiological insomnia F51.04 Active 194175901 Problem Habitual self-excoriation F42.4 Active 660907205 Problem Chronic cellulitis L03.90 Active 118957304 Problem OCD (obsessive compulsive disorder) F42 Active 376886901 Problem Obesity (BMI 30.0-34.9) E66.9 Active 667997025234420 Problem Insomnia G47.00 Active 816636658 Problem Asthma J45.909 Active 176088578 Problem Anxiety F41.9 Active 73681345 Problem SVETLANA treated with BiPAP G47.33 Active 97652856 ALLERGIES No Information SOCIAL HISTORY Never Assessed [...] sepsis Hospitalization History Acute hypoxic resp distress--[facility] 07/28/16 Hospitalization History Denies any past psychiatric hospitalization
--- OUTSIDE RECORDS SUMMARY | 2018-10-07 10:43 | XMS REPORT ---
Author Author SATHYA VALDES [facility] Address [address] [place] [address] Care Team Providers Care Wrapper Sorter Name Role Phone SATHYA VALDES Unavailable PROBLEMS Type Condition ICD9-CM Code MEQ76-JJ Code Onset Dates Condition Status SNOMED Code Problem Anemia D64.9 Active 500904093 Problem Asthma J45.909 Active 515742211 Problem Obesity (BMI 30.0-34.9) E66.9 Active 485925957817402 Problem Anxiety F41.9 Active 06629019 Problem Insomnia G47.00 Active 415816759 Problem OCD (obsessive compulsive disorder) F42 Active 550755008 Problem Chronic cellulitis L03.90 Active 220622676 ALLERGIES Unknown Allergies SOCIAL HISTORY No smoking Hx information available PLAN OF CARE VITAL SIGNS MEDICATIONS Unknown Medications RESULTS No Results PROCEDURES No Known procedures IMMUNIZATIONS No Known Immunizations
--- OUTSIDE RECORDS SUMMARY | 2018-10-07 10:44 | XMS REPORT ---
Author Author BRICE RAMIREZ Organization [facility] Address [address] [place] [address] Care Team Providers Care Information Security Architect Name Role Phone BRICE RAMIREZ Unavailable PROBLEMS Type Condition ICD9-CM Code [id number] Code Onset Dates Condition Status SNOMED Code Problem Psychophysiological insomnia F51.04 Active 434466589 Problem Eating disorder, unspecified F50.9 Active 27988687 Problem Adjustment disorder with depressed mood F43.21 Active 37801110 Problem COPD exacerbation J44.1 Active 716214356 Problem Insomnia G47.00 Active 182721659 Problem BMI 45.0-49.9, adult Z68.42 Active 322313910 Problem OCD (obsessive compulsive disorder) F42 Active 487020652 Problem Chronic cellulitis L03.90 Active 981158313 Problem Moderate persistent asthma without complication J45.40 Active 612150819 Problem Body mass index (BMI) of 40.0-44.9 in adult Z68.41 Active 145467833 Problem Severe persistent asthma with acute exacerbation J45.51 Active 813773425 Problem Other obesity due to excess calories E66.09 Active 73164553787774 Problem Obesity (BMI 30.0-34.9) E66.9 Active 005603848101586 Problem SVETLANA treated with BiPAP G47.33 Active 25305122 Problem Anxiety F41.9 Active 47200232 Problem Asthma J45.909 Active 310833449 Problem Iron deficiency anemia, unspecified iron deficiency anemia type D50.9 Active 18516280 Problem Asthma exacerbation J45.901 Active 675427756 Problem Reactive depression F32.9 Active 80818266 Problem Seasonal allergic rhinitis due to pollen J30.1 Active 00985200 Problem Other chronic pain G89.29 Active 98393902 Problem Habitual self-excoriation F42.4 Active 518899518 ALLERGIES No Information ENCOUNTERS Encounter Location Date Diagnosis [facility] [address] [address] Feb, [place] [id number] [address] January, COPD exacerbation J44.1 and Left medial knee pain M25.562 [place] [address] 35678- 64[address] Dec, COPD with exacerbation J44.1 ; BMI 45.0-49.9, adult Z68.42 ; SVETLANA treated with BiPAP G47.33 ; Habitual self-excoriation F42.4 and Psychophysiological insomnia F51.04 [place] [address] 84[address]- 7596 Dec, [place] [address] 33304- 6950 Dec, Acute pain of left knee M25.562 ; Unspecified fall, initial encounter W19.XXXA ; Unspecified place in unspecified non-institutional (private ) residence as the place of occurrence of the external cause Y92.009 ; BMI 45.0- 49.9, adult Z68.42 and Severe persistent asthma with acute exacerbation J45.51 [place] [address] 45716- 6910 Dec, Anxiety F41.9 and Psychophysiological insomnia F51.04 [place] [address] [place] [id number] [place] [address] 82719- 4685 Nov, Psychophysiological insomnia F51.04 [place] [address] [place] [id number] [place] [address] 29937- 2235 Oct, [place] [address] 45195- 2604 Oct, Anxiety F41.9 [place] [address] [place] [id number] [place] [address] 32040- 1574 Oct, [place] [address] 36475- 0224 Oct, Severe persistent asthma with acute exacerbation J45.51 ; Tobacco abuse Z72.0 and BMI 45.0-49.9, adult Z68.42 [place] [address] 96713- 3995 Oct, Psychophysiological insomnia F51.04 [place] [address] 58275- 0222 Sep, Anxiety F41.9 [place] [address] 20701- 2279 Sep, Anxiety F41.9 and Habitual self-excoriation F42.4 [place] [address] 68782- 3213 Sep, Psychophysiological insomnia F51.04 [place] [address] 97100- 1303 Aug, Anxiety F41.9 [place] [address] 09746- 1428 Aug, Asthma J45.909 [place] [address] 73891- 6598 Aug, Anxiety F41.9 [facility] [address] [address] Aug, Acute bronchitis, unspecified organism J20.9 [place] [address] 02874- 6857 Aug, Psychophysiological insomnia F51.04 [place] [address] 61453- 8889 Jul, Therapeutic drug monitoring Z51.81 [place] [address] 06912- 1174 Jul, [place] [address] 42578- 9250 Jul, Habitual self-excoriation F42.4 [facility] [address] [place] [id number] [place] [address] 27429- 4504 08 Jul, 2017 [place] [address] [place] [id number] [place] [address] 06634- 0691 Jul, [facility] [address] [place] [id number] [place] [address] 92910- 6579 Jun, SVETLANA treated with BiPAP G47.33 ; Moderate persistent asthma without complication J45.40 ; Anxiety F41.9 ; Other obesity due to excess calories E66.09 ; Body mass index (BMI) of 40.0-44.9 in adult Z68.41 ; Psychophysiological insomnia F51.04 and Encounter for immunization Z23 [place] [address] [place] [id number] [place] [address] 92082- 6921 Jun, [place] [address] 12477- 7737 17 Jun, 2017 Habitual self-excoriation F42.4 ; Adjustment disorder with depressed mood F43.21 ; Psychophysiological insomnia F51.04 and Eating disorder , unspecified F50.9 [place] [address] [place] [id number] [place] [address] 24677- 6972 Jun, Visit for TB skin test Z11.1 [place] [address] [place] [id number] [place] [address] 88952- 8478 Jun, Habitual self-excoriation F42.4 and Psychophysiological insomnia F51.04 [place] [address] [place] [id number] [place] [address] 73537- 0974 Jun, Asthma J45.909 [place] [address] [place] [id number] [place] [address] 37889- 5924 May, Asthma J45.909 [place] [address] [place] [id number] [place] [address] 77202- 6871 May, [place] [address] 68600- 3971 May, Habitual self-excoriation F42.4 and Psychophysiological insomnia F51.04 [place] [address] [place] [id number] [place] [address] 25514- 4217 Apr, Habitual self-excoriation F42.4 ; Adjustment disorder with depressed mood F43.21 ; Psychophysiological insomnia F51.04 and Eating disorder , unspecified F50.9 [place] [address] [place] [id number] [place] [address] 56861- 9911 Apr, [place] [address] [place] [id number] [place] [address] 41877- 5774 Apr, Habitual self-excoriation F42.4 ; Adjustment disorder with depressed mood F43.21 ; Psychophysiological insomnia F51.04 and Other chcf (current) drug therapy Z79.899 [place] [address] [place] [id number] [place] [address] 23017- 0926 Mar, [place] [address] [place] [id number] [place] [address] 62236- 1423 Mar, [place] [address] [place] [id number] [place] [address] 09085- 5918 Mar, Anxiety F41.9 [place] [address] [place] [id number] [place] [address] 67987- 6296 Feb, Asthma J45.909 [place] [address] [place] [id number] [place] [address] 58051- 7578 Feb, [place] [address] [place] [id number] [place] [address] 66775- 2759 Feb, Anxiety F41.9 [place] [address] [place] [id number] [place] [address] 17416- 2155 Feb, Asthma exacerbation J45.901 and Seasonal allergic rhinitis due to pollen J30.1 [place] [address] [place] [id number] [place] [address] 30788- 5692 January, [place] [address] [place] [id number] [place] [address] 76261- 4728 January, Anxiety F41.9 [facility] [address] 84250- 6437 Dec, Therapeutic drug monitoring Z51.81 [place] [address] [place] [id number] [place] [address] 63710- 2801 Dec, Anxiety F41.9 and Asthma J45.909 [facility] [address] [place] [id number] [place] [address] 48365- 4733 Nov, Asthma J45.909 [place] [address] 08935- 1416 Nov, Anxiety F41.9 [place] [address] [place] [id number] [place] [address] 27247- 1268 Oct, Asthma exacerbation J45.901 ; Pain in right knee M25.561 ; Pain in left knee M25.562 and Open wound of eyebrow, left, subsequent encounter S01.102D [facility] [address] [place] [id number] [place] [address] 04815- 6456 Oct, [facility] [address] [place] [address] 87441 -5042 Oct, Other viral agents as the cause of diseases classified elsewhere B97.89 and Acute upper respiratory infection, unspecified J06.9 [facility] [address] [place] [address] 97444- 7775 Oct, [facility] [address] [place] [id number] [place] [address] 80743- 9755 Oct, [place] [address] [place] [id number] [place] [address] 59575- 1116 Oct, Anxiety F41.9 [facility] [address] [place] [id number] [place] [address] 96504- 0193 Sep, [place] [address] [place] [id number] [place] [address] 54490- 9209 Sep, SVETLANA treated with BiPAP G47.33 and Asthma J45.909 [place] [address] 30961- 9298 Sep, SVETLANA treated with BiPAP G47.33 ; Obesity (BMI 30.0-34.9) E66.9 and Reactive depression F32.9 [place] [address] 72155- 2934 Sep, Anxiety F41.9 [place] [address] 61238- 6987 Aug, [place] [address] 19960- 9523 Aug, Insomnia G47.00 [place] [address] 52287- 0894 Aug, [place] [address] 61849- 2162 Aug, SVETLANA treated with BiPAP G47.33 and On supplemental oxygen therapy Z99.81 [place] [address] 95533- 2483 Jul, On supplemental oxygen therapy Z99.81 ; Obesity (BMI 30.0- 34.9) E66.9 and SVETLANA treated with BiPAP G47.33 [place] [address] [place] [id number] [place] [address] 48429- 5273 Jul, Mucus plugging of bronchi J98.09 ; On supplemental oxygen therapy Z99.81 ; Acute midline thoracic back pain M54.6 and SVETLANA treated with BiPAP G47.33 [place] [address] [place] [id number] [place] [address] 42939- 4256 16 Jul, 2016 [place] [address] 10902- 2141 Jul, [place] [address] [address]- 2656 Jul, [facility] [address] [place] [id number] [place] [address] 67578- 4246 May, [facility] [address] [place] [id number] [address]- 4479 May, [facility] [address] [place] [id number] [place] [address] 35140- 3535 Apr, [facility] [address] [place] [id number] [place] [address] 96181- 4341 Apr, [facility] [address] [place] [id number] [place] [address] 07627- 5227 Apr, Insomnia G47.00 ; Anemia D64.9 ; OCD (obsessive compulsive disorder) F42 ; Anxiety F41.9 ; Asthma J45.909 and Obesity (BMI 30.0-34.9) E66.9 [facility] [address] [place] [id number] [place] [address] 99340- 2212 Feb, [facility] [address] [place] [id number] [place] [address] 54455- 3196 Feb, Insomnia G47.00 [facility] [address] [place] [id number] [address] 1990 Nov, [facility] [address] [address]- 6740 Nov, [facility] [address] [address]- 4266 Nov, [facility] [address] [place] [id number] [place] [address] 68937- 1583 Nov, OCD (obsessive compulsive disorder) F42 ; Anxiety F41.9 ; Insomnia G47.00 ; Anemia D64.9 and Asthma J45.909 [facility] [address] [place] [address] 88572- 8794 Nov, [facility] [address] [address]- 4681 Oct, [facility] [address] [address]- 5481 Aug, OCD (obsessive compulsive disorder) F42 ; Chronic cellulitis L03.90 ; Anxiety F41.9 ; Insomnia G47.00 ; Anemia D64.9 and Asthma J45.909 [facility] [address] [address]- 7656 Aug, [facility] [address] [address]- 5129 Jul, [facility] [address] [address]- 7200 Jul, OCD (obsessive compulsive disorder) F42 ; Chronic cellulitis L03.90 ; Anxiety F41.9 ; Insomnia G47.00 and Anemia D64.9 [facility] [address] [address]- 4945 Dec, [facility] [address] [address]- 4059 Dec, [facility] [address] [address]- 1969 Aug, [facility] [address] [address]- 7390 Aug, [facility] [address] [address]- 1922 Aug, [facility] [address] [address]- 2406 Aug, [facility] [address] [address]- 9762 Aug, [facility] [address] [address]- 1812 Aug, [facility] [address] [place] [address]- 1145 Aug, [facility] [address] [id number] [place] [address]- 4496 Jul, [facility] [place] [facility] [address] [id number] [place] [address]- 8158 Jul, [facility] [place] [facility] [address] [id number] [place] [address]- 1110 Jul, [facility] [place] [facility] [address] [id number] [place] [address]- 1409 Jul, [facility] [place] [facility] [address] [id number] [place] [address]- 2971 Apr, [facility] [place] [facility] [address] [id number] [place] [address]- 0224 Apr, [facility] [place] [facility] [address] [id number] [place] [address]- 3402 Feb, [facility] [place] [facility] [address] [id number] [place] [address]- 5827 Feb, [facility] [place] [facility] [address] [id number] [place] [address]- 8921 Feb, [facility] [place] [facility] [address] [id number] [place] [address]- 3850 Feb, [facility] [place] [facility] [address] [id number] [place] [address]- 5747 January, [facility] [place] [facility] [address] [id number] [place] [address]- 9578 January, [facility] [place] [facility] [address] [id number] [place] [address]- 8102 January, [facility] [place] [facility] [address] [id number] [place] [address]- 4115 Dec, [facility] [place] [facility] [address] [id number] [place] [address]- 7038 Dec, [facility] [place] [facility] [address] [id number] [place] [address]- 5460 Dec, [facility] [place] [facility] [address] [id number] [place] [address]- 0084 Dec, [facility] [place] [facility] [address] [id number] [place] [address]- 0932 Nov, [facility] [place] [facility] [address] [id number] [place] [address]- 4578 Nov, [facility] [place] [facility] [address] [id number] [place] [address]- 1656 Nov, [facility] [place] [facility] [address] [id number] [place] [address]- 9662 Nov, [facility] [place] [facility] [address] [facility] [id number] [place] [address]- 3541 Nov, [facility] [place] [facility] [address] [id number] [place] [address]- 0912 Nov, [facility] [place] [facility] [address] [id number] [place] [address]- 5226 Oct, [facility] [place] [facility] [address] [id number] [place] [address]- 0057 Oct, [facility] [place] [facility] [address] [id number] [place] [address]- 7804 Oct, [facility] [place] [facility] [address] [id number] [place] [address]- 3102 Oct, [facility] [place] [facility] [address] [id number] [place] [address]- 5990 Oct, [facility] [place] [facility] [address] [id number] [place] [address]- 6010 Oct, [facility] [place] [facility] [address] [id number] [place] [address]- 1165 Oct, [facility] [place] [facility] [address] [id number] [place] [address]- 6432 Oct, [facility] [address] [id number] [place] [address]- 8836 Oct, [facility] [place] [facility] [address] [id number] [place] 6176 Oct, [facility] [place] [facility] [address] [id number] [place] [address]- 9686 Oct, [facility] [place] [facility] [address] [id number] [place] [address]- 9945 Oct, [facility] [place] [facility] [address] [id number] [place] [address]- 7447 Sep, [facility] [place] [facility] [address] [id number] [place] [address]- 1755 Sep, [facility] [place] [facility] [address] [id number] [place] [address]- 7890 Sep, [facility] [address] [id number] [place] [address]- 7780 Sep, [facility] [place] [facility] [address] [id number] [place] [address]- 0728 Aug, [facility] [address] [id number] [place] [address]- 9487 Aug, [facility] [place] [facility] [address] [id number] [place] [address]- 5174 Aug, [facility] [place] [facility] [address] [id number] [place] [address] 254 Aug, [facility] [place] [facility] [address] [id number] [place] [address]- 5996 Aug, [facility] [place] [facility] [address] [id number] [place] [address] 2546 Aug, [facility] [place] [facility] [address] [id number] [place] [address]- 9735 Aug, IMMUNIZATIONS No Known Immunizations SOCIAL HISTORY Never Assessed REASON FOR VISIT refill PLAN OF CARE VITAL SIGNS MEDICATIONS Medication Instructions Dosage Frequency Start Date End Date Duration Status Ventolin HFA 90 MCG/ACT Inhalation every 4 hrs 2 puffs as needed 4h Active RESULTS No Results PROCEDURES No Known procedures INSTRUCTIONS MEDICATIONS ADMINISTERED No Known Medications MEDICAL (GENERAL) HISTORY Type Description Date Medical History asthma Medical History anxiety Medical History gastric bypass Medical History anemia Medical History sleep apnea treated with biPAP Surgical History gastric bypass 2002 Hospitalization History surgery Hospitalization History anemia Hospitalization History sepsis Hospitalization History Acute hypoxic resp distress--[facility] 07/28/16 Hospitalization History Denies any past psychiatric hospitalization
--- OUTSIDE RECORDS SUMMARY | 2018-10-07 10:45 | XMS REPORT | Continuity of Care Document ---
Author Author [facility] Address Unknown Phone Unavailable Allergies Active Description Code Type Severity Reaction Onset Reported/Identified Relationship to Patient Clinical Status Yes No Known Drug Allergies [id number] Drug Allergy Unknown N/A 10/26/2013 Yes morphine [id number] Drug Allergy Mild N/A 10/05/2018 Medications There is no data. Problems Date Dx Coded Attending Type Code Diagnosis Diagnosed By 09/07/2013 HUGH BONILLA, SOFIE R 493.90 ASTHMA UNSPECIFIED 09/07/2013 HUGH RATING OFFICER, SOFIE R 786.2 COUGH 09/07/2013 HUGH RATING OFFICER, SOFIE R 493.90 ASTHMA UNSPECIFIED 09/07/2013 HUGH RATING OFFICER, SOFIE R 786.2 COUGH 09/07/2013 HUGH RATING OFFICER, SOFIE R 493.90 ASTHMA UNSPECIFIED 09/07/2013 HUGH RATING OFFICER, SOFIE R 786.2 COUGH 09/07/2013 RICHARD DIXON MD 493.90 ASTHMA UNSPECIFIED 09/07/2013 RICHARD DIXON MD 786.2 COUGH 09/07/2013 HUGH RATING OFFICER, SOFIE R 493.90 ASTHMA UNSPECIFIED 09/07/2013 HUGH RATING OFFICER, SOFIE R 786.2 COUGH 09/07/2013 HUGH RATING OFFICER, SOFIE R 493.90 ASTHMA UNSPECIFIED 09/07/2013 HUGH RATING OFFICER, SOFIE R 786.2 COUGH 09/07/2013 YG BELL MD 493.90 ASTHMA UNSPECIFIED 09/07/2013 YG BELL MD 786.2 [facility], GIO Martinez 786.2 COUGH 09/07/2013 MONIQUE BONILLA, CRYSTAL ESPINAL 493.90 ASTHMA UNSPECIFIED 09/07/2013 CRYSTAL AMAYA APRN 786.2 COUGH 09/07/2013 CRYSTAL AMAYA APRN 493.90 ASTHMA UNSPECIFIED 09/07/2013 CRYSTAL AMAYA APRN 786.2 COUGH 09/07/2013 HUGH RATING OFFICER, SOFIE R 493.90 ASTHMA UNSPECIFIED 09/07/2013 HUGH MCNAMARAN, SOFIE R 786.2 COUGH 10/13/2013 HUGH MCNAMARAN, SOFIE R 783.1 ABNORMAL WEIGHT GAIN 10/13/2013 HUGH BONILLA, SOFIE R V45.86 BARIATRIC SURGERY STATUS 10/13/2013 HUGH BONILLA, SOFIE R V58.69 HIGH RISK MEDICATION (LONG-TERM) 10/13/2013 HUGH BONILLA, SOFIE R 783.1 ABNORMAL WEIGHT GAIN 10/13/2013 HUGH BONILLA, SOFIE R V45.86 BARIATRIC SURGERY STATUS 10/13/2013 HUGH BONILLA, SOFIE R V58.69 HIGH RISK MEDICATION (LONG-TERM) 10/13/2013 RICHARD DIXON MD 783.1 ABNORMAL WEIGHT GAIN 10/13/2013 RICHARD DIXON MD V45.86 BARIATRIC SURGERY STATUS 10/13/2013 RICHARD DIXON MD V58.69 HIGH RISK MEDICATION (LONG-TERM) 10/13/2013 HUGH BONILLA, SOFIE R 783.1 ABNORMAL WEIGHT GAIN 10/13/2013 HUGH BONILLA, SOFIE R V45.86 BARIATRIC SURGERY STATUS 10/13/2013 HUGH BONILLA, SOFIE R V58.69 HIGH RISK MEDICATION (LONG-TERM) 10/13/2013 HUGH BONILLA, SOFIE R 783.1 ABNORMAL WEIGHT GAIN 10/13/2013 HUGH BONILLA, SOFIE R V45.86 BARIATRIC SURGERY STATUS 10/13/2013 HUGH BONILLA, SOFIE R V58.69 HIGH RISK MEDICATION (LONG-TERM) 10/13/2013 YG BELL MD 783.1 ABNORMAL WEIGHT GAIN 10/13/2013 YG BELL MD V45.86 BARIATRIC SURGERY STATUS 10/13/2013 YG BELL MD V58.69 HIGH RISK MEDICATION (LONG-TERM) 10/13/2013 [facility] WE[facility] GAIN 10/13/2013 [facility] V45.86 BARIATRIC SURGERY STATUS 10/13/2013 VAZQUEZ LSCSGIO V58.69 HIGH RISK MEDICATION (LONG-TERM) 10/13/2013 CRYSTAL AMAYA APRN 783.1 ABNORMAL WEIGHT GAIN 10/13/2013 CRYSTAL AMAYA APRN V45.86 BARIATRIC SURGERY STATUS 10/13/2013 CRYSTAL AMAYA APRN V58.69 HIGH RISK MEDICATION (LONG-TERM) 10/13/2013 CRYSTAL AMAYA APRN 783.1 ABNORMAL WEIGHT GAIN 10/13/2013 CRYSTAL AMAYA APRN V45.86 BARIATRIC SURGERY STATUS 10/13/2013 CRYSTAL AMAYA APRN V58.69 HIGH RISK MEDICATION (LONG-TERM) 10/13/2013 HUGH RATING OFFICER, SOFIE R 783.1 ABNORMAL WEIGHT GAIN 10/13/2013 HUGH RATING OFFICER, SOFIE R V45.86 BARIATRIC SURGERY STATUS 10/13/2013 HUGH RATING OFFICER, SOFIE R V58.69 HIGH RISK MEDICATION (LONG-TERM) 10/25/2013 DESTINY SAMPSON, RICHARD Lim 780.60 Fever 10/25/2013 HUGH BONILLA, SOFIE R 780.60 Fever 10/25/2013 HUGH BONILLA, SOFIE R 780.60 Fever 10/25/2013 RAY SAMPSON, YG 780.60 Fever 10/25/2013 [facility], GIO Martinez 780.60 Fever 10/25/2013 AMAYAZARIA MCNAMARAN, CRYSTAL ESPINAL 780.60 Fever 10/25/2013 MONIQUE MCNAMARAN, CRYSTAL ESPINAL 780.60 Fever 10/25/2013 HUGH BONILLA, SOFIE R 780.60 Fever 11/02/2013 PHILIP PITTS MD Ot 038.0 STREPTOCOCCAL SEPTICEMIA 11/02/2013 PHILIP PITTS MD Ot 275.2 DIS MAGNESIUM METABOLISM 11/02/2013 PHILIP PITTS MD Ot 276.8 HYPOPOTASSEMIA 11/02/2013 PHILIP PITTS MD Ot 285.9 ANEMIA NOS 11/02/2013 PHILIP PITTS MD Ot 287.5 THROMBOCYTOPENIA NOS 11/02/2013 PHILIP PITTS MD Ot 305.1 TOBACCO USE DISORDER 11/02/2013 PHILIP PITTS MD Ot 493.90 ASTHMA, UNSPECIFIED 11/02/2013 PHILIP PITTS MD Ot 584.9 ACUTE RENAL FAILURE, UNSPECIFIED 11/02/2013 PHILIP PITTS MD Ot 599.0 URIN TRACT INFECTION NOS 11/02/2013 PHILIP PITTS MD Ot 682.6 CELLULITIS OF LEG 11/02/2013 PHILIP PITTS MD Ot 785.52 SEPTIC SHOCK 11/02/2013 PHILIP PITTS MD Ot 787.91 DIARRHEA 11/02/2013 PHILIP PITTS MD Ot 995.92 SEVERE SEPSIS 11/02/2013 PHILIP PITTS MD Ot V12.29 PERSONAL HX OF [facility], METABOLIC 11/02/2013 PHILIP PITTS MD Ot V45.86 BARIATRIC SURGERY STATUS 11/09/2013 SOFIE REESE APRN R 682.6 CELLULITIS AND ABSCESS OF LEG EXCEPT FOOT 11/09/2013 SOFIE REESE APRN R 682.6 CELLULITIS AND ABSCESS OF LEG EXCEPT FOOT 11/09/2013 YG BELL MD 682.6 CELLULITIS AND ABSCESS OF LEG EXCEPT FOOT 11/09/2013 [facility], GIO Martinez 682.6 CELLULITIS AND ABSCESS OF LEG EXCEPT FOOT 11/09/2013 CRYSTAL AMAYA APRN 682.6 CELLULITIS AND ABSCESS OF LEG EXCEPT FOOT 11/09/2013 CRYSTAL AMAYA APRN 682.6 CELLULITIS AND ABSCESS OF LEG EXCEPT FOOT 11/09/2013 YUE REESE APRNINA R 682.6 CELLULITIS AND ABSCESS OF LEG EXCEPT FOOT 11/11/2013 YUE REESE APRNINA R 312.39 OTHER DISORDERS OF IMPULSE CONTROL 11/11/2013 YUE REESE APRNINA R 312.39 OTHER DISORDERS OF IMPULSE CONTROL 11/11/2013 YG BELL MD 312.39 OTHER DISORDERS OF IMPULSE CONTROL 11/11/2013 [facility], GIO Martinez 312.39 OTHER DISORDERS OF IMPULSE CONTROL 11/11/2013 CRYSTAL AMAYA APRN 312.39 OTHER DISORDERS OF IMPULSE CONTROL 11/11/2013 CRYSTAL AMAYA APRN 312.39 OTHER DISORDERS OF IMPULSE CONTROL 11/11/2013 SOFIE REESE APRN R 312.39 OTHER DISORDERS OF IMPULSE CONTROL 12/09/2013 [facility] AN ANXIETY UNSPEC 12/09/2013 CRYSTAL AMAYA APRN 300.00 AN ANXIETY UNSPEC 12/09/2013 CRYSTAL AMAYA APRN 300.00 AN ANXIETY UNSPEC 12/09/2013 HUGH MCNAMARANSOFIE R 300.00 AN ANXIETY UNSPEC 12/12/2013 CRYSTAL AMAYA APRN 307.50 EA EATING DISORDER UNSPECIFIED 12/12/2013 CRYSTAL AMAYA APRN 312.30 I IMPULSE CONTROL DISORDER NOS 12/12/2013 CRYSTAL AMAYA APRN 307.50 EA EATING DISORDER UNSPECIFIED 12/12/2013 CRYSTAL AMAYA APRN 312.30 I IMPULSE CONTROL DISORDER NOS 12/12/2013 HUGH RATING OFFICERYUE ZafarINA R 307.50 EA EATING DISORDER UNSPECIFIED 12/12/2013 HUGH IRENEYUESOFIE R 312.30 I IMPULSE CONTROL DISORDER NOS 02/02/2014 ANDERSPHILIPPE POMPA [employer]ARDS BEVELER Ot 276.8 HYPOPOTASSEMIA 02/02/2014 PHILIPPE ANDERS [employer] BOARDS BEVELER Ot 285.9 ANEMIA NOS 08/31/2014 HUGH RATING OFFICERSOFIE Zafar R 462 ACUTE PHARYNGITIS 07/27/2016 Ot 793.89 OTH (ABN) FINDINGS ON RADIOLOGICAL EXAMI 07/27/2016 Ot 276.8 HYPOPOTASSEMIA 07/27/2016 Ot 285.9 ANEMIA NOS 07/27/2016 Ot 793.89 OTH (ABN) FINDINGS ON RADIOLOGICAL EXAMI 07/27/2016 Ot 276.8 HYPOPOTASSEMIA 07/27/2016 Ot 285.9 ANEMIA NOS 07/28/2016 Ot 793.89 OTH (ABN) FINDINGS ON RADIOLOGICAL EXAMI 07/28/2016 Ot 276.8 HYPOPOTASSEMIA 07/28/2016 Ot 285.9 ANEMIA NOS 07/31/2016 Ot 793.89 OTH (ABN) FINDINGS ON RADIOLOGICAL EXAMI 07/31/2016 Ot 276.8 HYPOPOTASSEMIA 07/31/2016 Ot 285.9 ANEMIA NOS 07/31/2016 CONCEPCION DO, JOHN K Ot D50.9 IRON DEFICIENCY ANEMIA, UNSPECIFIED 07/31/2016 CONCEPCION DO, JOHN K Ot E66.9 OBESITY, UNSPECIFIED 07/31/2016 CONCEPCION DO, JOHN K Ot E87.6 HYPOKALEMIA 07/31/2016 CONCEPCION DO, JOHN K Ot F31.9 BIPOLAR DISORDER, UNSPECIFIED 07/31/2016 CONCEPCION DO, JOHN K Ot F42.9 OBSESSIVE-COMPULSIVE DISORDER, UNSPECIFI 07/31/2016 CONCEPCION DO, JOHN K Ot G47.33 OBSTRUCTIVE SLEEP APNEA (ADULT) (PEDIATR 07/31/2016 CONCEPCION DO, JOHN K Ot J45.901 UNSPECIFIED ASTHMA WITH (ACUTE) EXACERBA 07/31/2016 CONCEPCION DO, JOHN K Ot J96.01 ACUTE RESPIRATORY FAILURE WITH HYPOXIA 07/31/2016 CONCEPCION DO, JOHN K Ot J98.11 ATELECTASIS 07/31/2016 CONCEPCION DO, JOHN K Ot R73.9 HYPERGLYCEMIA, UNSPECIFIED 07/31/2016 CONCEPCION DO, JOHN K Ot T17.990A OTH FORN OBJ IN RESP TRACT, PART UNSP IN 07/31/2016 CONCEPCION DO, JOHN K Ot Z68.41 BODY MASS INDEX (BMI) 40.0-44.9, ADULT 08/05/2016 CONCEPCION DO, JOHN K Ot D50.9 IRON DEFICIENCY ANEMIA, UNSPECIFIED 08/05/2016 CONCEPCION DO, JOHN K Ot E66.9 OBESITY, UNSPECIFIED 08/05/2016 CONCEPCION DO, JOHN K Ot E87.6 HYPOKALEMIA 08/05/2016 CONCEPCION DO, JOHN K Ot F31.9 BIPOLAR DISORDER, UNSPECIFIED 08/05/2016 CONCEPCION DO, JOHN K Ot F42.9 OBSESSIVE-COMPULSIVE DISORDER, UNSPECIFI 08/05/2016 CONCEPCION DO, JOHN K Ot G47.33 OBSTRUCTIVE SLEEP APNEA (ADULT) (PEDIATR 08/05/2016 CONCEPCION DO, JOHN K Ot J45.901 UNSPECIFIED ASTHMA WITH (ACUTE) EXACERBA 08/05/2016 CONCEPCION DO, JOHN K Ot J96.01 ACUTE RESPIRATORY FAILURE WITH HYPOXIA 08/05/2016 CONCEPCION DO, JOHN K Ot J98.11 ATELECTASIS 08/05/2016 CONCEPCION DO, JOHN K Ot R73.9 HYPERGLYCEMIA, UNSPECIFIED 08/05/2016 CONCEPCION DO, JOHN K Ot T17.990A OTH FORN OBJ IN RESP TRACT, PART UNSP IN 08/05/2016 CONCEPCION DO, JOHN K Ot Z68.41 BODY MASS INDEX (BMI) 40.0-44.9, ADULT 08/05/2016 CONCEPCION DO, JOHN K Ot D50.9 IRON DEFICIENCY ANEMIA, UNSPECIFIED 08/05/2016 CONCEPCION DO, JOHN K Ot E66.9 OBESITY, UNSPECIFIED 08/05/2016 CONCEPCION DO, JOHN K Ot E87.6 HYPOKALEMIA 08/05/2016 JOHN CONCEPCION DO Ot F31.9 BIPOLAR DISORDER, UNSPECIFIED 08/05/2016 JOHN CONCEPCION DO Ot F42.9 OBSESSIVE-COMPULSIVE DISORDER, UNSPECIFI 08/05/2016 JOHN CONCEPCION DO Ot G47.33 OBSTRUCTIVE SLEEP APNEA (ADULT) (PEDIATR 08/05/2016 CARLENE POOL JOHN K Ot J45.901 UNSPECIFIED ASTHMA WITH (ACUTE) EXACERBA 08/05/2016 JOHN CONCEPCION DO Ot J96.01 ACUTE RESPIRATORY FAILURE WITH HYPOXIA 08/05/2016 JOHN CONCEPCION DO Ot J98.11 ATELECTASIS 08/05/2016 JOHN CONCEPCION DO Ot K59.00 CONSTIPATION, UNSPECIFIED 08/05/2016 JOHN CONCEPCION DO Ot R73.9 HYPERGLYCEMIA, UNSPECIFIED 08/05/2016 JOHN CONCEPCION DO Ot T17.990A OTH FORN OBJ IN RESP TRACT, PART UNSP IN 08/05/2016 JOHN CONCEPCION DO Ot Z68.41 BODY MASS INDEX (BMI) 40.0-44.9, ADULT 10/15/2016 Ot 793.89 OTH (ABN) FINDINGS ON RADIOLOGICAL EXAMI 10/15/2016 Ot 793.89 OTH (ABN) FINDINGS ON RADIOLOGICAL EXAMI 10/15/2016 Ot 276.8 HYPOPOTASSEMIA 10/15/2016 Ot 285.9 ANEMIA NOS 10/04/2018 Ot 276.8 HYPOPOTASSEMIA 10/04/2018 Ot 285.9 ANEMIA NOS 10/04/2018 Ot 276.8 HYPOPOTASSEMIA 10/04/2018 Ot 285.9 ANEMIA NOS 10/05/2018 Ot 276.8 HYPOPOTASSEMIA 10/05/2018 Ot 285.9 ANEMIA NOS Procedures Code Description [place] [address] ROUTINE VENIPUNCTURE 10/14/2013 7327801 GFR CALC (RESULT ONLY) 10/14/2013 16229 CMP 10/14/2013 31743 LIPID PANEL 10/14/2013 21349 CBC 10/14/2013 35499 TSH 10/14/2013 33450 INFLUENZA A & B (IN-HOUSE) 10/25/2013 83087 PSYCH DIAGNOSTIC EVALUATION 12/12/2013 75347 ROUTINE VENIPUNCTURE 08/31/2014 20337 INFLUENZA A & B (IN-HOUSE) 08/31/2014 22014 MONO TEST (IN-HOUSE) 08/31/2014 90829 CBC 09/01/2014 [id number] GFR CALC (RESULT ONLY) 09/01/2014 19218 CMP 09/01/2014 04904 MYCOPLASMA ANTIBODY 09/03/2014 Results Test Result Range Complete blood count (CBC) with automated white blood cell (WBC) differential - 07/27/16 15:52 Blood leukocytes automated count (number/volume) 7.0 10*3/uL 4.3-11.0 Blood erythrocytes automated count (number/volume) 4.99 10*6/uL 4.35-5.85 Venous blood hemoglobin measurement (mass/volume) 10.1 g/dL 11.5-16.0 Blood hematocrit (volume fraction) 34 % 35-52 Automated erythrocyte mean corpuscular volume 68 [foz_us] 80-99 Automated erythrocyte mean corpuscular hemoglobin (mass per erythrocyte) 20 pg 25-34 Automated erythrocyte mean corpuscular hemoglobin concentration measurement ( mass/volume) 30 g/dL 32-36 Automated erythrocyte distribution width ratio 19.0 % 10.0-14.5 Automated blood platelet count (count/volume) 244 10*3/uL 130-400 Automated blood platelet mean volume measurement TNP 7.4 -10.4 Automated blood neutrophils/100 leukocytes 66 % 42-75 Automated blood lymphocytes/100 leukocytes 20 % 12-44 Blood monocytes/100 leukocytes 7 % 0-12 Automated blood eosinophils/100 leukocytes 7 % 0-10 Automated blood basophils/100 leukocytes 0 % 0-10 Blood neutrophils automated count (number/volume) 4.6 10*3 1.8-7.8 Blood lymphocytes automated count (number/volume) 1.4 10*3 1.0-4.0 Blood monocytes automated count (number/volume) 0.5 10*3 0.0-1.0 Automated eosinophil count 0.5 10*3/uL 0.0-0.3 Automated blood basophil count (count/volume) 0.0 10*3/uL 0.0-0.1 Comprehensive metabolic panel - 07/27/16 15:52 Serum or plasma sodium measurement (moles/volume) 141 mmol/L 135-145 Serum or plasma potassium measurement (moles/volume) 3.3 mmol/L 3.6-5.0 Serum or plasma chloride measurement (moles/volume) 111 mmol/L 98-107 Carbon dioxide 19 mmol/L 21-32 Serum or plasma anion gap determination (moles/volume) 11 mmol/L 5-14 Serum or plasma urea nitrogen measurement (mass/volume) 13 mg/dL 7-18 Serum or plasma creatinine measurement (mass/volume) 0.83 mg/dL 0.60-1.30 Serum or plasma urea nitrogen/creatinine mass ratio 16 NRG Serum or plasma creatinine measurement with calculation of estimated glomerular filtration rate > NRG Serum or plasma glucose measurement (mass/volume) 105 mg/dL 70-105 Serum or plasma calcium measurement (mass/volume) 9.3 mg/dL 8.5-10.1 Serum or plasma total bilirubin measurement (mass/volume) 0.3 mg/dL 0.1-1.0 Serum or plasma alkaline phosphatase measurement (enzymatic activity/volume) 89 U/L 40-136 Serum or plasma aspartate aminotransferase measurement (enzymatic activity/ volume) 14 U/L 5-34 Serum or plasma alanine aminotransferase measurement (enzymatic activity/volume ) 18 U/L 0-55 Serum or plasma protein measurement (mass/volume) 7.0 g/dL 6.4-8.2 Serum or plasma albumin measurement (mass/volume) 4.2 g/dL 3.2-4.5 Complete blood count (CBC) with automated white blood cell (WBC) differential - 07/28/16 05:40 Blood leukocytes automated count (number/volume) 6.8 10*3/uL 4.3-11.0 Blood erythrocytes automated count (number/volume) 5.08 10*6/uL 4.35-5.85 Venous blood hemoglobin measurement (mass/volume) 10.2 g/dL 11.5-16.0 Blood hematocrit (volume fraction) 35 % 35-52 Automated erythrocyte mean corpuscular volume 68 [foz_us] 80-99 Automated erythrocyte mean corpuscular hemoglobin (mass per erythrocyte) 20 pg 25-34 Automated erythrocyte mean corpuscular hemoglobin concentration measurement ( mass/volume) 30 g/dL 32-36 Automated erythrocyte distribution width ratio 19.3 % 10.0-14.5 Automated blood platelet count (count/volume) 232 10*3/uL 130-400 Automated blood platelet mean volume measurement TNP 7.4 -10.4 Automated blood neutrophils/100 leukocytes 93 % 42-75 Automated blood lymphocytes/100 leukocytes 6 % 12-44 Blood monocytes/100 leukocytes 1 % 0-12 Automated blood eosinophils/100 leukocytes 0 % 0-10 Automated blood basophils/100 leukocytes 0 % 0-10 Blood neutrophils automated count (number/volume) 6.3 10*3 1.8-7.8 Blood lymphocytes automated count (number/volume) 0.4 10*3 1.0-4.0 Blood monocytes automated count (number/volume) 0.1 10*3 0.0-1.0 Automated eosinophil count 0.0 10*3/uL 0.0-0.3 Automated blood basophil count (count/volume) 0.0 10*3/uL 0.0-0.1 Blood manual differential performed detection - 07/28/16 05:40 Blood monocytes/100 leukocytes 0 % NRG Manual blood segmented neutrophils/100 leukocytes 96 % NRG Blood band neutrophils/100 leukocytes 0 % NRG Manual blood lymphocytes/100 leukocytes 4 % NRG Manual eosinophils/100 leukocytes in nose 0 % NRG Manual blood basophils/100 leukocytes 0 % NRG Blood anisocytosis detection by light microscopy MODERATE NRG Blood ovalocytes detection by light microscopy MODERATE NRG Blood poikilocytosis detection by light microscopy SLIGHT NRG Blood hypochromia detection by light microscopy MODERATE NRG Blood microcytes detection by light microscopy MODERATE NRG Arterial blood gas measurement - 07/28/16 10:58 Blood pCO2 29 mm[Hg] 35-45 Blood pO2 63 mm[Hg] 79-93 Arterial blood bicarbonate measurement (moles/volume) 19 mmol/L 23-27 Arterial blood base excess by calculation -5.0 mmol/L - 2.5-2.5 Arterial blood oxygen saturation measurement 93 % 94-100 * Inhaled oxygen flow rate 15 LPM 80% VAPOTHERM NRG Arterial blood pH measurement with patient temperature correction 7.43 7.37-7.43 Arterial blood carbon dioxide, total measurement (moles/volume) 19.6 mmol/L 21.0-31.0 Body site RIGHT RADIAL NRG Assessment of wrist artery patency prior to arterial puncture POSITIVE NRG Setting of ventilation mode NO NRG Measurement of body temperature 97.5 NRG Urine drug screening test - 07/28/16 11:55 Urine phencyclidine detection by screening method NEGATIVE NEGATIVE Urine benzodiazepines detection by screening method NEGATIVE NEGATIVE Urine cocaine detection NEGATIVE NEGATIVE Urine amphetamines detection by screening method NEGATIVE NEGATIVE Urine methamphetamine detection by screening method NEGATIVE NEGATIVE Urine cannabinoids detection by screening method NEGATIVE NEGATIVE Urine opiates detection by screening method NEGATIVE NEGATIVE Urine barbiturates detection NEGATIVE NEGATIVE Screening urine tricyclic antidepressants detection NEGATIVE NEGATIVE Urine methadone detection by screening method NEGATIVE NEGATIVE Urine oxycodone detection NEGATIVE NEGATIVE Urine propoxyphene detection NEGATIVE NEGATIVE Complete blood count (CBC) with automated white blood cell (WBC) differential - 07/29/16 04:15 Blood leukocytes automated count (number/volume) 13.6 10*3/uL 4.3-11.0 Blood erythrocytes automated count (number/volume) 4.80 10*6/uL 4.35-5.85 Venous blood hemoglobin measurement (mass/volume) 9.7 g/dL 11.5-16.0 Blood hematocrit (volume fraction) 33 % 35-52 Automated erythrocyte mean corpuscular volume 68 [foz_us] 80-99 Automated erythrocyte mean corpuscular hemoglobin (mass per erythrocyte) 20 pg 25-34 Automated erythrocyte mean corpuscular hemoglobin concentration measurement ( mass/volume) 30 g/dL 32-36 Automated erythrocyte distribution width ratio 19.3 % 10.0-14.5 Automated blood platelet count (count/volume) 275 10*3/uL 130-400 Automated blood platelet mean volume measurement TNP 7.4 -10.4 Automated blood neutrophils/100 leukocytes 93 % 42-75 Automated blood lymphocytes/100 leukocytes 5 % 12-44 Blood monocytes/100 leukocytes 2 % 0-12 Automated blood eosinophils/100 leukocytes 0 % 0-10 Automated blood basophils/100 leukocytes 0 % 0-10 Blood neutrophils automated count (number/volume) 12.7 10*3 1.8-7.8 Blood lymphocytes automated count (number/volume) 0.7 10*3 1.0-4.0 Blood monocytes automated count (number/volume) 0.2 10*3 0.0-1.0 Automated eosinophil count 0.0 10*3/uL 0.0-0.3 Automated blood basophil count (count/volume) 0.0 10*3/uL 0.0-0.1 Whole blood basic metabolic panel - 07/29/16 04:15 Serum or plasma sodium measurement (moles/volume) 142 mmol/L 135-145 Serum or plasma potassium measurement (moles/volume) 3.8 mmol/L 3.6-5.0 Serum or plasma chloride measurement (moles/volume) 112 mmol/L 98-107 Carbon dioxide 18 mmol/L 21-32 Serum or plasma anion gap determination (moles/volume) 12 mmol/L 5-14 Serum or plasma urea nitrogen measurement (mass/volume) 18 mg/dL 7-18 Serum or plasma creatinine measurement (mass/volume) 0.81 mg/dL 0.60-1.30 Serum or plasma urea nitrogen/creatinine mass ratio 22 NRG Serum or plasma creatinine measurement with calculation of estimated glomerular filtration rate > NRG Serum or plasma glucose measurement (mass/volume) 147 mg/dL 70-105 Serum or plasma calcium measurement (mass/volume) 9.1 mg/dL 8.5-10.1 Serum or plasma phosphate measurement (mass/volume) - 07/29/16 04:15 Serum or plasma phosphate measurement (mass/volume) 3.8 mg/dL 2.3-4.7 Magnesium - 07/29/16 04:15 Magnesium 2.5 mg/dL 1.8-2.4 Complete blood count (CBC) with automated white blood cell (WBC) differential - 07/31/16 04:35 Blood leukocytes automated count (number/volume) 8.1 10*3/uL 4.3-11.0 Blood erythrocytes automated count (number/volume) 4.38 10*6/uL 4.35-5.85 Venous blood hemoglobin measurement (mass/volume) 8.9 g/dL 11.5-16.0 Blood hematocrit (volume fraction) 30 % 35-52 Automated erythrocyte mean corpuscular volume 69 [foz_us] 80-99 Automated erythrocyte mean corpuscular hemoglobin (mass per erythrocyte) 20 pg 25-34 Automated erythrocyte mean corpuscular hemoglobin concentration measurement ( mass/volume) 30 g/dL 32-36 Automated erythrocyte distribution width ratio 18.8 % 10.0-14.5 Automated blood platelet count (count/volume) 224 10*3/uL 130-400 Automated blood platelet mean volume measurement TNP 7.4 -10.4 Automated blood neutrophils/100 leukocytes 91 % 42-75 Automated blood lymphocytes/100 leukocytes 8 % 12-44 Blood monocytes/100 leukocytes 2 % 0-12 Automated blood eosinophils/100 leukocytes 0 % 0-10 Automated blood basophils/100 leukocytes 0 % 0-10 Blood neutrophils automated count (number/volume) 7.4 10*3 1.8-7.8 Blood lymphocytes automated count (number/volume) 0.6 10*3 1.0-4.0 Blood monocytes automated count (number/volume) 0.1 10*3 0.0-1.0 Automated eosinophil count 0.0 10*3/uL 0.0-0.3 Automated blood basophil count (count/volume) 0.0 10*3/uL 0.0-0.1 Whole blood basic metabolic panel - 07/31/16 04:35 Serum or plasma sodium measurement (moles/volume) 142 mmol/L 135-145 Serum or plasma potassium measurement (moles/volume) 3.9 mmol/L 3.6-5.0 Serum or plasma chloride measurement (moles/volume) 112 mmol/L 98-107 Carbon dioxide 19 mmol/L 21-32 Serum or plasma anion gap determination (moles/volume) 11 mmol/L 5-14 Serum or plasma urea nitrogen measurement (mass/volume) 18 mg/dL 7-18 Serum or plasma creatinine measurement (mass/volume) 0.78 mg/dL 0.60-1.30 Serum or plasma urea nitrogen/creatinine mass ratio 23 NRG Serum or plasma creatinine measurement with calculation of estimated glomerular filtration rate > NRG Serum or plasma glucose measurement (mass/volume) 134 mg/dL 70-105 Serum or plasma calcium measurement (mass/volume) 8.8 mg/dL 8.5-10.1 Serum or plasma phosphate measurement (mass/volume) - 07/31/16 04:35 Serum or plasma phosphate measurement (mass/volume) 4.2 mg/dL 2.3-4.7 Magnesium - 07/31/16 04:35 Magnesium 2.4 mg/dL 1.8-2.4 Serum iron and total iron binding capacity panel - 07/31/16 04:35 Serum or plasma iron measurement (mass/volume) < % 35- 180 Total iron binding capacity and transferrin saturation measurement 3 % 15-50 Iron binding capacity [mass/volume] in serum or plasma < % 280-380 UIBC (unsaturated iron binding capacity) 314 % 55-450 Serum or plasma ferritin measurement (mass/volume) 4 % 15 -150 Complete blood count (CBC) with automated white blood cell (WBC) differential - 08/01/16 05:38 Blood leukocytes automated count (number/volume) 5.3 10*3/uL 4.3-11.0 Blood erythrocytes automated count (number/volume) 4.60 10*6/uL 4.35-5.85 Venous blood hemoglobin measurement (mass/volume) 9.2 g/dL 11.5-16.0 Blood hematocrit (volume fraction) 31 % 35-52 Automated erythrocyte mean corpuscular volume 68 [foz_us] 80-99 Automated erythrocyte mean corpuscular hemoglobin (mass per erythrocyte) 20 pg 25-34 Automated erythrocyte mean corpuscular hemoglobin concentration measurement ( mass/volume) 30 g/dL 32-36 Automated erythrocyte distribution width ratio 18.7 % 10.0-14.5 Automated blood platelet count (count/volume) 212 10*3/uL 130-400 Automated blood neutrophils/100 leukocytes 90 % 42-75 Automated blood lymphocytes/100 leukocytes 6 % 12-44 Blood monocytes/100 leukocytes 4 % 0-12 Automated blood eosinophils/100 leukocytes 0 % 0-10 Automated blood basophils/100 leukocytes 0 % 0-10 Blood neutrophils automated count (number/volume) 4.8 10*3 1.8-7.8 Blood lymphocytes automated count (number/volume) 0.3 10*3 1.0-4.0 Blood monocytes automated count (number/volume) 0.2 10*3 0.0-1.0 Automated eosinophil count 0.0 10*3/uL 0.0-0.3 Automated blood basophil count (count/volume) 0.0 10*3/uL 0.0-0.1 Whole blood basic metabolic panel - 08/01/16 05:38 Serum or plasma sodium measurement (moles/volume) 144 mmol/L 135-145 Serum or plasma potassium measurement (moles/volume) 3.5 mmol/L 3.6-5.0 Serum or plasma chloride measurement (moles/volume) 110 mmol/L 98-107 Carbon dioxide 22 mmol/L 21-32 Serum or plasma anion gap determination (moles/volume) 12 mmol/L 5-14 Serum or plasma urea nitrogen measurement (mass/volume) 18 mg/dL 7-18 Serum or plasma creatinine measurement (mass/volume) 0.81 mg/dL 0.60-1.30 Serum or plasma urea nitrogen/creatinine mass ratio 22 NRG Serum or plasma creatinine measurement with calculation of estimated glomerular filtration rate > NRG Serum or plasma glucose measurement (mass/volume) 129 mg/dL 70-105 Serum or plasma calcium measurement (mass/volume) 8.5 mg/dL 8.5-10.1 Complete blood count (CBC) with automated white blood cell (WBC) differential - 08/03/16 04:50 Blood leukocytes automated count (number/volume) 10.4 10*3/uL 4.3-11.0 Blood erythrocytes automated count (number/volume) 4.95 10*6/uL 4.35-5.85 Venous blood hemoglobin measurement (mass/volume) 10.0 g/dL 11.5-16.0 Blood hematocrit (volume fraction) 33 % 35-52 Automated erythrocyte mean corpuscular volume 68 [foz_us] 80-99 Automated erythrocyte mean corpuscular hemoglobin (mass per erythrocyte) 20 pg 25-34 Automated erythrocyte mean corpuscular hemoglobin concentration measurement ( mass/volume) 30 g/dL 32-36 Automated erythrocyte distribution width ratio 18.6 % 10.0-14.5 Automated blood platelet count (count/volume) 239 10*3/uL 130-400 Automated blood platelet mean volume measurement TNP 7.4 -10.4 Automated blood neutrophils/100 leukocytes 75 % 42-75 Automated blood lymphocytes/100 leukocytes 15 % 12-44 Blood monocytes/100 leukocytes 10 % 0-12 Automated blood eosinophils/100 leukocytes 0 % 0-10 Automated blood basophils/100 leukocytes 0 % 0-10 Blood neutrophils automated count (number/volume) 7.8 10*3 1.8-7.8 Blood lymphocytes automated count (number/volume) 1.5 10*3 1.0-4.0 Blood monocytes automated count (number/volume) 1.0 10*3 0.0-1.0 Automated eosinophil count 0.0 10*3/uL 0.0-0.3 Automated blood basophil count (count/volume) 0.0 10*3/uL 0.0-0.1 Whole blood basic metabolic panel - 08/03/16 04:50 Serum or plasma sodium measurement (moles/volume) 140 mmol/L 135-145 Serum or plasma potassium measurement (moles/volume) 3.8 mmol/L 3.6-5.0 Serum or plasma chloride measurement (moles/volume) 107 mmol/L 98-107 Carbon dioxide 23 mmol/L 21-32 Serum or plasma anion gap determination (moles/volume) 10 mmol/L 5-14 Serum or plasma urea nitrogen measurement (mass/volume) 25 mg/dL 7-18 Serum or plasma creatinine measurement (mass/volume) 0.79 mg/dL 0.60-1.30 Serum or plasma urea nitrogen/creatinine mass ratio 32 NRG Serum or plasma creatinine measurement with calculation of estimated glomerular filtration rate > NRG Serum or plasma glucose measurement (mass/volume) 86 mg/dL 70-105 Serum or plasma calcium measurement (mass/volume) 8.1 mg/dL 8.5-10.1 STOOL (C-DIFF) - 04/27/18 15:00 CLOSTRIDIUM DIFFICILE TOXIN/GDH W/REFL TO PCR SEE NOTE NRG Influenza virus A and B antigen detection - 10/04/18 08:20 FLU RESULT NEGATIVE FOR INFLUENZA A AND B ANTIGENS BY IA NR Complete blood count (CBC) with automated white blood cell (WBC) differential - 10/04/18 08:30 Blood leukocytes automated count (number/volume) 9.7 10*3/uL 4.3-11.0 Blood erythrocytes automated count (number/volume) 4.67 10*6/uL 4.35-5.85 Venous blood hemoglobin measurement (mass/volume) 9.4 g/dL 11.5-16.0 Blood hematocrit (volume fraction) 32 % 35-52 Automated erythrocyte mean corpuscular volume 69 [foz_us] 80-99 Automated erythrocyte mean corpuscular hemoglobin (mass per erythrocyte) 20 pg 25-34 Automated erythrocyte mean corpuscular hemoglobin concentration measurement ( mass/volume) 29 g/dL 32-36 Automated erythrocyte distribution width ratio 20.1 % 10.0-14.5 Automated blood platelet count (count/volume) 334 10*3/uL 130-400 Automated blood platelet mean volume measurement 11.2 [foz_us] 7.4-10.4 Automated blood neutrophils/100 leukocytes 67 % 42-75 Automated blood lymphocytes/100 leukocytes 19 % 12-44 Blood monocytes/100 leukocytes 9 % 0-12 Automated blood eosinophils/100 leukocytes 5 % 0-10 Automated blood basophils/100 leukocytes 0 % 0-10 Blood neutrophils automated count (number/volume) 6.5 10*3 1.8-7.8 Blood lymphocytes automated count (number/volume) 1.8 10*3 1.0-4.0 Blood monocytes automated count (number/volume) 0.8 10*3 0.0-1.0 Automated eosinophil count 0.5 10*3/uL 0.0-0.3 Automated blood basophil count (count/volume) 0.0 10*3/uL 0.0-0.1 PT panel in platelet poor plasma by coagulation assay - 10/04/18 08:30 Prothrombin time (PT) in platelet poor plasma by coagulation assay 13.2 s 12.2-14.7 INR in platelet poor plasma or blood by coagulation assay 1.0 0.8-1.4 Activated partial thromboplastin time (aPTT) in platelet poor plasma bycoagulation assay - 10/04/18 08:30 Activated partial thromboplastin time (aPTT) in platelet poor plasma bycoagulation assay 26 s 24-35 Serum or plasma choriogonadotropin ( test) detection - 10/04/18 08:30 Serum or plasma choriogonadotropin ( test) detection NEGATIVE NEGATIVE Blood lactic acid measurement (moles/volume) - 10/04/18 08:30 Blood lactic acid measurement (moles/volume) 2.93 mmol/L 0.50-2.00 Comprehensive metabolic panel - 10/04/18 08:30 Serum or plasma sodium measurement (moles/volume) 137 mmol/L 135-145 Serum or plasma potassium measurement (moles/volume) 3.9 mmol/L 3.6-5.0 Serum or plasma chloride measurement (moles/volume) 104 mmol/L 98-107 Carbon dioxide 20 mmol/L 21-32 Serum or plasma anion gap determination (moles/volume) 13 mmol/L 5-14 Serum or plasma urea nitrogen measurement (mass/volume) 14 mg/dL 7-18 Serum or plasma creatinine measurement (mass/volume) 0.94 mg/dL 0.60-1.30 Serum or plasma urea nitrogen/creatinine mass ratio 15 NRG Serum or plasma creatinine measurement with calculation of estimated glomerular filtration rate > NRG Serum or plasma glucose measurement (mass/volume) 91 mg/dL 70-105 Serum or plasma calcium measurement (mass/volume) 8.9 mg/dL 8.5-10.1 Serum or plasma total bilirubin measurement (mass/volume) 0.4 mg/dL 0.1-1.0 Serum or plasma alkaline phosphatase measurement (enzymatic activity/volume) 93 U/L 40-136 Serum or plasma aspartate aminotransferase measurement (enzymatic activity/ volume) 15 U/L 5-34 Serum or plasma alanine aminotransferase measurement (enzymatic activity/volume ) 15 U/L 0-55 Serum or plasma protein measurement (mass/volume) 7.0 g/dL 6.4-8.2 Serum or plasma albumin measurement (mass/volume) 4.1 g/dL 3.2-4.5 CALCIUM CORRECTED 8.8 mg/dL 8.5-10.1 Bacterial blood culture - 10/04/18 08:30 Bacterial blood culture NG NRG Bacterial blood culture - 10/04/18 09:04 Bacterial blood culture NG NRG Complete urinalysis with reflex to culture - 10/04/18 10:17 Urine color determination YELLOW NRG Urine clarity determination SLIGHTLY CLOUDY NRG Urine pH measurement by test strip 5 5-9 Specific gravity of urine by test strip 1.020 1.016- 1.022 Urine protein assay by test strip, semi-quantitative 1+ NEGATIVE Urine glucose detection by automated test strip NEGATIVE NEGATIVE Erythrocytes detection in urine sediment by light microscopy NEGATIVE NEGATIVE Urine ketones detection by automated test strip 1+ NEGATIVE Urine nitrite detection by test strip NEGATIVE NEGATIVE Urine total bilirubin detection by test strip 1+ NEGATIVE Urine urobilinogen measurement by automated test strip (mass/volume) 4 mg/dL NORMAL Urine leukocyte esterase detection by dipstick 1+ NEGATIVE Automated urine sediment erythrocyte count by microscopy (number/high power field) NONE NRG Automated urine sediment leukocyte count by microscopy (number/high power field ) RARE NRG Bacteria detection in urine sediment by light microscopy FEW NRG Squamous epithelial cells detection in urine sediment by light microscopy >50 NRG Crystals detection in urine sediment by light microscopy NONE NRG Casts detection in urine sediment by light microscopy NONE NRG Mucus detection in urine sediment by light microscopy NEGATIVE NRG Complete urinalysis with reflex to culture CULTURE PENDING NRG Bacterial urine culture - 10/04/18 10:17 Bacterial urine culture SEE REPORT NRG COLONY COUNT . NRG Arterial blood gas measurement - 10/04/18 11:40 Blood pCO2 35 mm[Hg] 35-45 Blood pO2 63 mm[Hg] 79-93 Arterial blood bicarbonate measurement (moles/volume) 22 mmol/L 23-27 Arterial blood base excess by calculation -2.5 mmol/L - 2.5-2.5 Arterial blood oxygen saturation measurement 93 % 94-100 * Inhaled oxygen flow rate 2 NRG Arterial blood pH measurement with patient temperature correction 7.41 7.37-7.43 Arterial blood carbon dioxide, total measurement (moles/volume) 22.6 mmol/L 21.0-31.0 Body site L BRACHIAL NRG Assessment of wrist artery patency prior to arterial puncture POSITIVE NRG Setting of ventilation mode NO NRG Measurement of body temperature 97.7 NRG Serum or plasma lactate measurement (moles/volume) - 10/04/18 12:16 Serum or plasma lactate measurement (moles/volume) 2.05 mmol/L 0.50-2.00 Complete blood count (CBC) with automated white blood cell (WBC) differential - 10/05/18 05:54 Blood leukocytes automated count (number/volume) 10.1 10*3/uL 4.3-11.0 Blood erythrocytes automated count (number/volume) 4.49 10*6/uL 4.35-5.85 Venous blood hemoglobin measurement (mass/volume) 8.9 g/dL 11.5-16.0 Blood hematocrit (volume fraction) 31 % 35-52 Automated erythrocyte mean corpuscular volume 70 [foz_us] 80-99 Automated erythrocyte mean corpuscular hemoglobin (mass per erythrocyte) 20 pg 25-34 Automated erythrocyte mean corpuscular hemoglobin concentration measurement ( mass/volume) 29 g/dL 32-36 Automated erythrocyte distribution width ratio 19.7 % 10.0-14.5 Automated blood platelet count (count/volume) 313 10*3/uL 130-400 Automated blood platelet mean volume measurement 11.7 [foz_us] 7.4-10.4 Automated blood neutrophils/100 leukocytes 88 % 42-75 Automated blood lymphocytes/100 leukocytes 9 % 12-44 Blood monocytes/100 leukocytes 4 % 0-12 Automated blood eosinophils/100 leukocytes 0 % 0-10 Automated blood basophils/100 leukocytes 0 % 0-10 Blood neutrophils automated count (number/volume) 8.9 10*3 1.8-7.8 Blood lymphocytes automated count (number/volume) 0.9 10*3 1.0-4.0 Blood monocytes automated count (number/volume) 0.4 10*3 0.0-1.0 Automated eosinophil count 0.0 10*3/uL 0.0-0.3 Automated blood basophil count (count/volume) 0.0 10*3/uL 0.0-0.1 Comprehensive metabolic panel - 10/05/18 05:54 Serum or plasma sodium measurement (moles/volume) 138 mmol/L 135-145 Serum or plasma potassium measurement (moles/volume) 4.2 mmol/L 3.6-5.0 Serum or plasma chloride measurement (moles/volume) 108 mmol/L 98-107 Carbon dioxide 18 mmol/L 21-32 Serum or plasma anion gap determination (moles/volume) 12 mmol/L 5-14 Serum or plasma urea nitrogen measurement (mass/volume) 15 mg/dL 7-18 Serum or plasma creatinine measurement (mass/volume) 0.83 mg/dL 0.60-1.30 Serum or plasma urea nitrogen/creatinine mass ratio 18 NRG Serum or plasma creatinine measurement with calculation of estimated glomerular filtration rate > NRG Serum or plasma glucose measurement (mass/volume) 131 mg/dL 70-105 Serum or plasma calcium measurement (mass/volume) 9.1 mg/dL 8.5-10.1 Serum or plasma total bilirubin measurement (mass/volume) 0.3 mg/dL 0.1-1.0 Serum or plasma alkaline phosphatase measurement (enzymatic activity/volume) 87 U/L 40-136 Serum or plasma aspartate aminotransferase measurement (enzymatic activity/ volume) 17 U/L 5-34 Serum or plasma alanine aminotransferase measurement (enzymatic activity/volume ) 15 U/L 0-55 Serum or plasma protein measurement (mass/volume) 6.8 g/dL 6.4-8.2 Serum or plasma albumin measurement (mass/volume) 3.9 g/dL 3.2-4.5 CALCIUM CORRECTED 9.2 mg/dL 8.5-10.1 Blood manual differential performed detection - 10/05/18 05:54 Blood monocytes/100 leukocytes 1 % NRG Manual blood segmented neutrophils/100 leukocytes 90 % NRG Manual blood lymphocytes/100 leukocytes 8 % NRG Blood anisocytosis detection by light microscopy MODERATE NRG Blood ovalocytes detection by light microscopy SLIGHT NRG Blood hypochromia detection by light microscopy MODERATE NRG Blood microcytes detection by light microscopy MODERATE NRG Manual blood myelocytes/100 leukocytes 1 % NRG Encounters ACCT No. Visit Date/Time Discharge Status Pt. Type Provider Facility Loc./Unit Complaint [id number] 08/31/2014 15:27:00 08/31/2014 23:59:59 CLS Outpatient SOFIE REESE APRN [id number] 03/13/2014 14:00:00 03/13/2014 23:59:59 CLS Outpatient CRYSTAL AMAYA APRN [id number] 12/12/2013 16:57:00 12/12/2013 23:59:59 CLS Outpatient CRYSTAL AMAYA APRN [id number] 12/09/2013 10:07:00 12/09/2013 23:59:59 [facility] [id number] 11/23/2013 15:12:00 11/23/2013 23:59:59 CLS Outpatient YG BELL MD [id number] 11/17/2013 13:46:00 11/17/2013 23:59:59 CLS Outpatient HUGH BONILLA SOFIE R [id number] 11/11/2013 14:25:00 11/11/2013 23:59:59 CLS Outpatient HUGH BONILLA, SOFIE R [id number] 10/25/2013 15:09:00 10/25/2013 23:59:59 CLS Outpatient DESTINY SAMPSON, RICHARD Lim [id number] 10/14/2013 09:14:00 10/14/2013 23:59:59 CLS Outpatient HUGH BONILLA, SOFIE R [id number] 10/13/2013 11:31:00 10/13/2013 23:59:59 CLS Outpatient HUGH BONILLA, SOFIE R [id number] 09/07/2013 09:08:00 09/07/2013 23:59:59 CLS Outpatient HUGH BONILLA, SOFIE R [id number] 09/30/2018 11:40:00 09/30/2018 23:59:59 CLS Outpatient BRICE RAMIREZ [facility] [id number] 04/27/2018 15:00:00 Document Registration [id number] 10/04/2018 13:08:00 10/06/2018 12:15:00 DIS Inpatient STEPHANIE MCNALLY DO [facility] 4TH ASTHMA [id number] 07/28/2016 15:28:00 08/05/2016 15:00:00 DIS Inpatient JOHN CONCEPCION DO [facility] 4TH ACUTE ASTHMA [id number] 07/27/2016 14:38:00 07/27/2016 23:59:59 CLS Outpatient RONY BUSBY APRN [facility] [id number] 11/09/2013 06:37:00 02/02/2014 00:01:00 DIS Outpatient PHILIPPE ANDERS [facility] LAB ANEMIA [id number] 10/26/2013 16:32:00 11/02/2013 15:47:00 DIS Inpatient GISSELLE SAMPSON, PHILIP Zafar [facility] 4TH SEPTIC SHOCK, UTI SEPSIS , CELLULITIS LLE [id number] 02/03/2014 00:00:00 Document Registration [id number] 08/03/2012 13:06:00 Document Registration
== END 2018-10-06 12:15 | disposition home or self-care (01) ==
LOC: EDUNIT# 08:13 → ER 08:14 → 4TH 11:24 → UNDOADMOB 11:24 → 4TH 12:54 → UNDODISOB 10-06 14:05
PROVIDERS: ADMIT Internal Medicine; ATTEND Internal Medicine
DX: J45.901 Unspecified asthma with (acute) exacerbation (principal); D50.9 Iron deficiency anemia, unspecified; E87.2 Acidosis; E87.6 Hypokalemia; G47.30 Sleep apnea, unspecified; F32.9 Major depressive disorder, single episode, unspecified; F60.5 Obsessive-compulsive personality disorder; R82.998 Other abnormal findings in urine; E66.9 Obesity, unspecified; Z68.43 Body mass index [BMI] 50.0-59.9, adult; Z79.899 Other long term (current) drug therapy; Z87.891 Personal history of nicotine dependence; Z98.84 Bariatric surgery status
CPT/HCPCS: 36415; 36600; 71046; 80053; 81000; 82805; 83605; 84703; 85007; 85025; 85027; 85610; 85730; 87040; 87088; 87804; 94640; 94644; 94760; G0378

== ENCOUNTER 2018-11-19 21:43 | Emergency (ER) | payer SELFPAY ==
[~2018-11-19] VITALS: Ht 172.7 cm; Wt 113.4 kg
[~2018-11-19 21:43] MED LIST changes: +AZIT250T12 PO; +BENZ100C18 PO; +BUPR150T9 PO; +DULO30CA3 PO; +IPRA3AMP31 IH; +LORA1TAB PO; +MELO15TA39 PO; +PRED10TA22 PO
[2018-11-19] MEDS ORDERED: NS IV 1000 ML 1,000 ML IV SCH (21:55)
[2018-11-19] MEDS ORDERED: RT-ALBUTEROL SULF 2.5 MG/3 ML PRE-MIX VIAL INH STA (21:55)
[2018-11-19] MEDS ORDERED: RT-ALBUTEROL/IPRATROPIUM 3 ML (DUONEB) VIAL INH ONE (22:00)
--- NOTE | 2018-11-19 22:04 | ED Respiratory ---
General Chief Complaint: Respiratory Problems Stated Complaint: SOB Nursing Triage Note: COMPLAINT SOB STARTED TODAY. HOME ALBUTEROL Source: patient, old records Exam Limitations: no limitations History of Present Illness Date Seen by Provider: Nov 19, 2018 Time Seen by Provider: 21:51 Initial Comments The patient presents to ER by private conveyance with chief complaint that for the past 2 days she's been feeling unwell with some chills today. No objective fever measured. She has had a cough that been productive as well as a history of asthma. Typically she uses her inhaled Ventolin 4 times a day as well as an inhaled corticosteroid, Symbicort. For the past couple days she's been using the inhaler multiple times and at least 2 nebulized albuterol treatments. One was at urgent care. She said at urgent care oxygen sats would not get above 89% and they wanted to send her to the ER by ambulance but she refused and said she would come to the ER if needed. Last month she was given a couple days of steroids inpatient treatment for an asthma exacerbation and bronchitis. She's not been on steroids since then. She said the albuterol inhaler that she was given helped for about 5 or 10 minutes and then she felt tired and wheezy again. Allergies and Home Medications Allergies Coded Allergies: morphine (Verified Allergy, Mild, 10/05/18) itch Home Medications Albuterol Sulfate 18 Gm Hfa.aer.ad, 2 PUFF IH Q4H PRN for SHORTNESS OF BREATH, ( Reported) Benzonatate 100 Mg Capsule, 100 MG PO TID PRN for COUGH, (Reported) Budesonide/Formoterol Fumarate 10.2 Gm Hfa.aer.ad, 2 PUFF IH BID, (Reported) Bupropion HCl 150 Mg Tablet.er, 150 MG PO BID, (Reported) Duloxetine HCl 30 Mg Capsule.dr, 30 MG PO BID, (Reported) Ipratropium/Albuterol Sulfate 3 Ml Ampul.neb, 3 ML IH Q4H PRN for SHORTNESS OF BREATH, (Reported) Lorazepam 1 Mg Tablet, 1 MG PO BID PRN for ANXIETY, (Reported) Meloxicam 15 Mg Tablet, 15 MG PO DAILY, (Reported) Prednisone 10 Mg Tab.ds.pk, 10 MG PO DAILY Take 6 tabs(60mg)daily,decrease by 1 tab(10MG)daily. Prescribed by: STEPHANIE MCNALLY on 10/06/18 1035 Zolpidem Tartrate 10 Mg Tablet, 10 MG PO HS, (Reported) Patient Home Medication List Home Medication List Reviewed: Yes Review of Systems Review of Systems Constitutional: chills, fever, malaise EENTM: No hearing loss, No ear pain Respiratory: cough, phlegm, short of breath; No stridor; wheezing Cardiovascular: No chest pain, No edema Gastrointestinal: No abdominal pain, No constipation, No diarrhea, No nausea Genitourinary: No discharge, No dysuria Musculoskeletal: No back pain, No joint pain Skin: No pruritus, No rash Past Ghwmydu-Ladock-Ruubrv Hx Patient Social History Alcohol Use: Denies Use Recreational Drug Use: No Smoking Status: Former Smoker Type Used: Cigarettes Former Smoker, Quit: Jul 27, 2013 Recent Foreign Travel: No Contact w/Someone Who Travel: No Recent Infectious Disease Expo: No Recent Hopitalizations: No Immunizations Up To Date Tetanus Booster (TDap): Unknown PED Vaccines UTD: Yes Date of Pneumonia Vaccine: Oct 22, 2008 Date of Influenza Vaccine: Jun 24, 2018 Seasonal Allergies Seasonal Allergies: No Past Medical History Surgeries: Yes (GASTRIC BYPASS - 2001) Abdominal Respiratory: Yes Asthma Currently Using BIPAP: Yes Cardiac: No Neurological: No Reproductive Disorders: No Sexually Transmitted Disease: No HIV/AIDS: No Bladder Infection Gastroesophageal Reflux, Chronic Constipation Musculoskeletal: No Chronic Back Pain Endocrine: No Cancer: No Psychosocial: No Sleep Difficulties, Anxiety, ODD, Depression Integumentary: Yes Blood Disorders: Yes (ANEMIA) Adverse Reaction/Blood Tranf: No Family Medical History Cancer 03 FATHER (PANCREATITC) Family history: Cardiovascular disease 03 FATHER ([place]) Physical Exam Vital Signs - First Documented 11/19/18 21:52 Temp 98.6 Pulse 118 Resp 24 B/P (MAP) 134/74 (94) Pulse Ox 96 O2 Delivery Room Air Capillary Refill : Less Than 3 Seconds Height: 5'8.00" Weight: 250lbs. 6.0oz. [id number]; 57.3 BMI Method:Estimated General Appearance: mild distress, obese Eyes: Bilateral Eye Normal Inspection, Bilateral Eye PERRL, Bilateral Eye EOMI HEENT: PERRL/EOMI, normal ENT inspection, TMs normal, pharynx normal Neck: non-tender, full range of motion, normal inspection Respiratory: chest non-tender, respiratory distress (mild), decreased breath sounds, accessory muscle use (mild); No crackles, No rhonchi; wheezing, expiration (prolonged) Cardiovascular: normal peripheral pulses, regular rate, rhythm Extremities: normal inspection, normal capillary refill Neurologic/Psychiatric: alert, normal mood/affect, oriented x 3 Skin: normal color, warm/dry Focused Exam Lactate Level 11/19/18 21:55: Lactic Acid Level 3.42*H Lactic Acid Level Laboratory Tests Test 11/19/18 21:55 Lactic Acid Level 3.42 MMOL/L (0.50-2.00) *H Progress/Results/Core Measures Suspected Sepsis Recent Fever Within 48 Hours: No Infection Criteria Present: None New/Unexplained Altered Menta: No Sepsis Screen: No Definite Risk SIRS Temperature:98.6 Pulse: 118 Respiratory Rate: 24 Laboratory Tests 11/19/18 21:55: White Blood Count 7.8 Blood Pressure 134 /74 Mean: 94 11/19/18 21:55: Lactic Acid Level 3.42*H Laboratory Tests 11/19/18 21:55: Creatinine 1.25, INR Comment 1.1, Platelet Count 284, Total Bilirubin 0.3 Results/Orders Lab Results Laboratory Tests Test 11/19/18 21:55 11/19/18 22:15 11/19/18 23:08 Range/Units White Blood Count 7.8 4.3-11.0 10^3/uL Red Blood Count 4.62 4.35-5.85 10^6/uL Hemoglobin 9.2 L 11.5-16.0 G/DL Hematocrit 31 L 35-52 % Mean Corpuscular Volume 68 L 80-99 FL Mean Corpuscular Hemoglobin 20 L 25-34 PG Mean Corpuscular Hemoglobin Concent 29 L 32-36 G/DL Red Cell Distribution Width 19.6 H 10.0-14.5 % Platelet Count 284 130-400 10^3/uL Mean Platelet Volume 10.4 7.4-10.4 FL Neutrophils (%) (Auto) 63 42-75 % Lymphocytes (%) (Auto) 17 12-44 % Monocytes (%) (Auto) 6 0-12 % Eosinophils (%) (Auto) 15 H 0-10 % Basophils (%) (Auto) 0 0-10 % Neutrophils # (Auto) 4.9 1.8-7.8 X 10^3 Lymphocytes # (Auto) 1.3 1.0-4.0 X 10^3 Monocytes # (Auto) 0.5 0.0-1.0 X 10^3 Eosinophils # (Auto) 1.2 H 0.0-0.3 10^3/uL Basophils # (Auto) 0.0 0.0-0.1 10^3/uL Neutrophils % (Manual) 56 % Lymphocytes % (Manual) 29 % Monocytes % (Manual) 0 % Eosinophils % (Manual) 14 % Basophils % (Manual) 1 % Band Neutrophils 0 % Hypochromasia MODERATE Anisocytosis SLIGHT Microcytosis MODERATE Stomatocytes SLIGHT Elliptocytes SLIGHT Prothrombin Time 13.8 12.2-14.7 SEC INR Comment 1.1 0.8-1.4 Activated Partial Thromboplast Time 31 24-35 SEC Sodium Level 138 135-145 MMOL/L Potassium Level 3.9 3.6-5.0 MMOL/L Chloride Level 106 98-107 MMOL/L Carbon Dioxide Level 20 L 21-32 MMOL/L Anion Gap 12 5-14 MMOL/L Blood Urea Nitrogen 13 7-18 MG/DL Creatinine 1.25 0.60-1.30 MG/DL Estimat Glomerular Filtration Rate 46 BUN/Creatinine Ratio 10 Glucose Level 139 H 70-105 MG/DL Lactic Acid Level 3.42 *H 0.50-2.00 MMOL/L Calcium Level 9.1 8.5-10.1 MG/DL Corrected Calcium 9.1 8.5-10.1 MG/DL Magnesium Level 2.3 1.8-2.4 MG/DL Total Bilirubin 0.3 0.1-1.0 MG/DL Aspartate Amino Transf (AST/SGOT) 29 5-34 U/L Alanine Aminotransferase (ALT/SGPT) 22 0-55 U/L Alkaline Phosphatase 89 40-136 U/L C-Reactive Protein High Sensitivity 1.55 H 0.00-0.50 MG/DL Total Protein 6.8 6.4-8.2 GM/DL Albumin 4.0 3.2-4.5 GM/DL Serum Test, Qualitative NEGATIVE NEGATIVE Group A Streptococcus Screen NEGATIVE NEGATIVE Blood Gas Puncture Site LEFT RADIAL Blood Gas Patient Temperature 98.6 Arterial Blood pH 7.42 7.37-7.43 Arterial Blood Partial Pressure CO2 34 L 35-45 MMHG Arterial Blood Partial Pressure O2 56 L 79-93 MMHG Arterial Blood HCO3 22 L 23-27 MMOL/L Arterial Blood Total CO2 22.8 21.0-31.0 MMOL/L Arterial Blood Oxygen Saturation 90 L 94-100 % Arterial Blood Base Excess -2.1 -2.5-2.5 MMOL/L Gurdeep Test POSITIVE Blood Gas Ventilator Setting NO Blood Gas Inspired Oxygen N Micro Results Microbiology 11/19/18 Influenza Types A,B Antigen (MAIRA) - Final, Complete My Orders Orders - VALENTÍN NAVA Saline Lock/Iv-Start (11/19/18 21:55) Ns Iv 1000 Ml (Sodium Chloride 0.9%) (11/19/18 21:55) Albuterol Pre-Mix Nebs (Rt) (Proventil (11/19/18 21:55) Albuterol/Ipra Inhalation Soln (Duoneb I (11/19/18 22:00) Arterial Blood Gas (11/19/18 21:55) Cbc With Automated Diff (11/19/18 21:55) Comprehensive Metabolic Panel (11/19/18 21:55) Hs C Reactive Protein (11/19/18 21:55) Hcg,Qualitative Serum (11/19/18 21:55) Magnesium (11/19/18 21:55) Protime With Inr (11/19/18 21:55) Partial Thromboplastin Time (11/19/18 21:55) Blood Culture (11/19/18 21:55) Influenza A And B Antigens (11/19/18 21:55) Sputum Culture (11/19/18 21:55) Chest Pa/Lat (2 View) (11/19/18 21:55) Svn Small Volume Nebulizer (11/19/18 21:55) Lactic Acid Analyzer (11/19/18 21:55) Ceftriaxone For Iv Use (Rocephin For I (11/19/18 22:15) Manual Differential (11/19/18 21:55) Rapid Strep A Screen (11/19/18 22:11) Ketorolac Injection (Toradol Injection) (11/19/18 22:44) Ketorolac Injection (Toradol Injection) (11/19/18 23:00) Methylprednisolone Sod Succ (Solu-Medrol (11/19/18 23:00) Medications Given in ED Current Medications Medications Dose Ordered Sig/Juan Route Start Time Stop Time Status Last Admin Dose Admin Albuterol/ Ipratropium 3 ml ONCE ONCE INH 11/19/18 22:00 11/19/18 22:01 DC 11/19/18 22:10 3 ML Ceftriaxone Sodium 1000 mg/ Sterile Water 10 ml @ 200 mls/hr ONCE ONCE IV 11/19/18 22:15 11/19/18 22:17 DC 11/19/18 22:22 200 MLS/HR Ketorolac Tromethamine 30 mg STK-MED ONCE .ROUTE 11/19/18 22:44 11/19/18 22:45 DC 11/19/18 22:47 30 MG Methylprednisolone Sodium Succinate 125 mg ONCE ONCE IVP 11/19/18 23:00 11/19/18 23:01 DC 11/19/18 23:19 125 MG Vital Signs/I&O 11/19/18 11/19/18 21:52 22:11 Temp 98.6 Pulse 118 Resp 24 B/P (MAP) 134/74 (94) Pulse Ox 96 94 O2 Delivery Room Air Room Air Capillary Refill : Less Than 3 Seconds Blood Pressure Mean: 94 Progress Note #1: Time: 22:02 Progress Note Sounds that she's gotten herself tachyphylactic on albuterol and may either have bronchitis versus pneumonia with her productive cough and chills. We'll get an influenza swab do a septic workup. Her tachycardia could be from her recent beta-adrenergic use versus sepsis. We'll get a 2 view chest x-ray. She's not requiring any oxygen at the moment. We'll give her 20 mL/kg plus bolus. Her BMI is 38 so based on her adjusted ideal body weight of 84 kg 1680 mL would be adequate for 20 mL/kg. We will treat her with Rocephin in anticipation of a possible pneumonia. Hour-long breathing treatment. ABG. Progress Note #2: Time: 23:42 Progress Note After the hour-long breathing treatment her wheezing has nearly completely resolved. She has much better air movement through her lungs. I think her lactate is elevated because of all the albuterol she's been taking and possibly dehydration combined with her chronic anemia. She's feeling much better and I offered her an observation stay to continue the breathing treatments and steroids but she has albuterol by nebulizer at home and prefer to go home. We' ll send a prescription for some tramadol for her rib pain secondary to her coughing and some steroids for a week. She can follow-up with staffing program manager whom she has already establish care with. We have Given her return precautions. Diagnostic Imaging Diagonstic Imaging: Xray Plain Films/CT/US/NM/MRI: chest (2 view) Reviewed: Reviewed by Me Departure Impression Primary Impression: Acute asthma exacerbation Qualified Codes: J45.901 - Unspecified asthma with (acute) exacerbation Additional Impression: Bronchitis Disposition: HOME, SELF-CARE Condition: Improved Departure-Patient Inst. Decision time for Depature: 23:44 Referrals: KRISTIE MARCH [facility] (PCP/Family) Primary Care Physician Patient Instructions: Asthma, Adult (DC), Acute Bronchitis, Adult (DC) Add. Discharge Instructions: Drink plenty of fluids. Use vapor rubs and humidifiers. For the next 2 days use your nebulized albuterol every 4 hours [id number] and every 2 hours if needed. Use your Tessalon Perles as prescribed for cough. If you have significant pain not resolved with Tylenol or ibuprofen you can use the tramadol 1 tablet every 6 hours. 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 Take 2 tablets daily x 3 days. Take 1 tablet daily x 3 days. Follow-up with Dr. March, pulmonology in one week. All discharge instructions reviewed with patient and/or family. Voiced understanding. Scripts Prednisone (Prednisone) 20 Mg Tab 60 MG PO DAILY for 9 Days, #18 TAB 0 Refills Take 3 tablets daily x 3 days. Take 2 tablets daily x 3 days. Take 1 tablet daily x 3 days. Prov: VALENTÍN NAVA 11/19/18 Tramadol HCl (Tramadol HCl) 50 Mg Tablet 50 MG PO Q6H PRN for PAIN, #12 TAB 0 Refills Prov: VALENTÍN NAVA 11/19/18 VALENTÍN NAVA Nov 19, 2018 22:04
[2018-11-19 22:09] LABS: BASOPHILS % (AUTO) 0 % (0-10); EOSINOPHILS # (AUTO) 1.2 10^3/uL (0.0-0.3); EOSINOPHILS % (AUTO) 15 % (0-10); HEMATOCRIT 31 % (35-52); HEMOGLOBIN 9.2 G/DL (11.5-16.0); LYMPHOCYTES # (AUTO) 1.3 X 10^3 (1.0-4.0); LYMPHOCYTES % (AUTO) 17 % (12-44); MEAN CORPUSCULAR HEMOGLOBIN 20 PG (25-34); MEAN CORPUSCULAR HGB CONC 29 G/DL (32-36); MEAN CORPUSCULAR VOLUME 68 FL (80-99); MEAN PLATELET VOLUME 10.4 FL (7.4-10.4); MONOCYTES # (AUTO) 0.5 X 10^3 (0.0-1.0); MONOCYTES % (AUTO) 6 % (0-12); NEUTROPHILS # (AUTO) 4.9 X 10^3 (1.8-7.8); NEUTROPHILS % (AUTO) 63 % (42-75); PLATELET COUNT 284 10^3/uL (130-400); RED CELL DISTRIBUTION WIDTH 19.6 % (10.0-14.5); WHITE BLOOD COUNT 7.8 10^3/uL (4.3-11.0)
[2018-11-19] MEDS ORDERED: cefTRIAXone FOR IV USE 1,000 MG in WATER (STERILE) FOR INJECTION 10 ML IV ONE (22:15)
[2018-11-19 22:27] LABS: INR 1.1 (0.8-1.4); PROTHROMBIN TIME PATIENT 13.8 SEC (12.2-14.7)
[2018-11-19 22:30] LABS: BAND NEUTROPHILS 0 %; BASOPHILS % (MANUAL) 1 %; EOSINOPHILS % (MANUAL) 14 %; LYMPHOCYTES % (MANUAL) 29 %; MONOCYTES % (MANUAL) 0 %; NEUTROPHILS % (MANUAL) 56 %
[2018-11-19 22:31] LABS: ANISOCYTOSIS SLIGHT; ELLIPT/OVALOCYTES SLIGHT; HYPOCHROMASIA MODERATE; MICROCYTOSIS MODERATE; STOMATOCYTES SLIGHT
[2018-11-19 22:32] LABS: BILIRUBIN,TOTAL 0.3 MG/DL (0.1-1.0); CALCIUM 9.1 MG/DL (8.5-10.1); CREATININE SERUM 1.25 MG/DL (0.60-1.30); MAGNESIUM 2.3 MG/DL (1.8-2.4); POTASSIUM 3.9 MMOL/L (3.6-5.0); TOTAL PROTEIN 6.8 GM/DL (6.4-8.2)
[2018-11-19] MEDS ORDERED: KETOROLAC 30 MG/ML VIAL ONE (22:44)
[2018-11-19] MEDS ORDERED: KETOROLAC 30 MG/ML VIAL IVP ONE (23:00)
[2018-11-19] MEDS ORDERED: methylPREDNISolone 125 MG (Solu-MEDROL) VIAL IVP ONE (23:00)
[2018-11-19 23:18] LABS: ABG BASE EXCESS -2.1 MMOL/L (-2.5-2.5); ABG OXYGEN SATURATION 90 % (94-100); ABG PCO2 34 MMHG (35-45); ABG PH 7.42 (7.37-7.43); ABG PO2 56 MMHG (79-93); ABG TCO2 22.8 MMOL/L (21.0-31.0)
[2018-11-19 23:19] LABS: ALLENS TEST POSITIVE; INSPIRED O2 N; PATIENT TEMP 98.6; VENTILATOR NO
[2018-11-19] MEDS ORDERED: PRD20T PO (23:49)
[2018-11-19] MEDS ORDERED: TRAM50TA2 PO (23:49)
[2018-11-19 23:56] VITALS: BP 134/74
--- NOTE | 2018-11-20 07:57 | Diagnostic Imaging Report ---
PA and lateral chest. Compared to prior study from 10/04/2018 Indication: Cough and congestion. Findings: No focal alveolar consolidation or effusion. There is no pneumothorax. Heart and mediastinal contours appear appropriate. Pulmonary vascularity appears normal. There is no acute or suspicious osseous abnormality. Impression: 1. No radiographic evidence of an acute cardiopulmonary process. Dictated by: Dictated on workstation # [id number]
--- OUTSIDE RECORDS SUMMARY | 2018-11-21 10:38 | XMS REPORT | Continuity of Care Document ---
Author Author [facility] Address Unknown Phone Unavailable Allergies Active Description Code Type Severity Reaction Onset Reported/Identified Relationship to Patient Clinical Status Yes No Known Drug Allergies [id number] Drug Allergy Unknown N/A 10/26/2013 Yes morphine [id number] Drug Allergy Mild N/A 10/05/2018 Medications There is no data. Problems Date Dx Coded Attending Type Code Diagnosis Diagnosed By 09/07/2013 HUGH BONILLA, SOFIE R 493.90 ASTHMA UNSPECIFIED 09/07/2013 HU[facility] MENTAL HEALTH DIRECTOR, SOFIE R 786.2 COUGH 09/07/2013 HUGH MENTAL HEALTH DIRECTOR, SOFIE R 493.90 ASTHMA UNSPECIFIED 09/07/2013 HU[facility] MENTAL HEALTH DIRECTOR, SOFIE R 786.2 COUGH 09/07/2013 HU[facility] MENTAL HEALTH DIRECTOR, SOFIE R 493.90 ASTHMA UNSPECIFIED 09/07/2013 HU[facility] MENTAL HEALTH DIRECTOR, SOFIE R 786.2 COUGH 09/07/2013 RICHARD DIXON MD 493.90 ASTHMA UNSPECIFIED 09/07/2013 RICHARD DIXON MD 786.2 COUGH 09/07/2013 HU[facility] MENTAL HEALTH DIRECTOR, SOFIE R 493.90 ASTHMA UNSPECIFIED 09/07/2013 HUGH MENTAL HEALTH DIRECTOR, SOFIE R 786.2 COUGH 09/07/2013 HUGH MENTAL HEALTH DIRECTOR, SOFIE R 493.90 ASTHMA UNSPECIFIED 09/07/2013 HUGH MENTAL HEALTH DIRECTOR, SOFIE R 786.2 COUGH 09/07/2013 YG BELL MD 493.90 ASTHMA UNSPECIFIED 09/07/2013 YG BELL MD 786.2 COUGH [facility]07[facility]NS[facility] 09/07/2013 [facility], GIO Martinez 786.2 COUGH 09/07/2013 MONIQUE BONILLA, CRYSTAL ESPINAL 493.90 ASTHMA UNSPECIFIED 09/07/2013 CRYSTAL AMAYA APRN 786.2 COUGH 09/07/2013 CRYSTAL AMAYA APRN 493.90 ASTHMA UNSPECIFIED 09/07/2013 CRYSTAL AMAYA APRN 786.2 COUGH 09/07/2013 HU[facility] MENTAL HEALTH DIRECTOR, SOFIE R 493.90 ASTHMA UNSPECIFIED 09/07/2013 HUGH [...] V58.69 HIGH RISK MEDICATION (LONG-TERM) [facility]/13/2013 [facility] WE[facility] 10/13/2013 VAZQUEZ LSC[facility] [...] V58.69 HIGH RISK MEDICATION (LONG-TERM) 10/13/2013 HU[facility] MENTAL HEALTH DIRECTOR, SOFIE R 783.1 ABNORMAL WEIGHT GAIN 10/13/2013 HUGH MENTAL HEALTH DIRECTOR, SOFIE R V45.86 BARIATRIC SURGERY STATUS 10/13/2013 HUGH MENTAL HEALTH DIRECTOR, SOFIE R V58.69 HIGH RISK MEDICATION (LONG-TERM) 10/25/2013 DESTINY SAMPSON, RICHARD Lim 780.60 Fever 10/25/2013 HUGH BONILLA, SOFIE R 780.60 Fever 10/25/2013 HUGH BONILLA, SOFIE R 780.60 Fever 10/25/2013 RAY SAMPSON, YG 780.60 Fever 10/25/2013 [facility], GIO Martinez 780.60 Fever 10/25/2013 AMAYAZARIA MCNAMARAN, [...] PITTS MD Ot V12.29 PERSONAL HX OF [facility] ENDOCRINE, METABOLIC 11/02/2013 PHILIP PITTS MD Ot V45.86 BARIATRIC SURGERY STATUS 11/09/2013 SOFIE REESE APRN R 682.6 CELLULITIS AND ABSCESS OF LEG EXCEPT FOOT 11/09/2013 SOFIE REESE APRN R 682.6 CELLULITIS AND ABSCESS OF LEG EXCEPT FOOT 11/09/2013 YG BELL MD 682.6 CELLULITIS AND ABSCESS OF LEG EXCEPT FOOT 11/09/2013 [facility], GIO Martinez 682.6 CELLULITIS AND ABSCESS OF [...] 312.39 OTHER DISORDERS OF IMPULSE CONTROL 11/11/2013 [facility], GIO Martinez 312.39 OTHER DISORDERS OF IMPULSE CONTROL 11/11/2013 CRYSTAL AMAYA APRN 312.39 OTHER DISORDERS OF IMPULSE CONTROL 11/11/2013 CRYSTAL AMAYA APRN 312.39 OTHER DISORDERS OF IMPULSE CONTROL 11/11/2013 SOFIE REESE APRN R 312.39 OTHER DISORDERS OF IMPULSE CONTROL 12/09/2013 [facility] 300.00 AN ANXIETY UNSPEC 12/09/2013 CRYSTAL AMAYA [...] I IMPULSE CONTROL DISORDER NOS 12/12/2013 [facility] DIRECTORYUE ZafarINA R 307.50 EA EATING DISORDER UNSPECIFIED 12/12/2013 HUGH IRENEYUESOFIE R 312.30 I IMPULSE CONTROL DISORDER NOS 02/02/2014 ANDERSPHILIPPE POMPA VMWARE ADMINISTRATOR Ot 276.8 HYPOPOTASSEMIA 02/02/2014 PHILIPPE ANDERS [employer] ADMINISTRATOR Ot 285.9 ANEMIA NOS 08/31/2014 [facility] MENTAL HEALTH DIRECTORSOFIE Zafar R 462 ACUTE PHARYNGITIS 07/27/2016 Ot [...] G47.33 OBSTRUCTIVE SLEEP APNEA (ADULT) (PEDIATR 08/05/2016 JOHN CONCEPCION DO Ot J45.901 UNSPECIFIED ASTHMA WITH (ACUTE) EXACERBA [...] 276.8 HYPOPOTASSEMIA 10/05/2018 Ot 285.9 ANEMIA NOS 10/06/2018 STEPHANIE MCNALLY DO Ot D50.9 IRON DEFICIENCY ANEMIA, UNSPECIFIED 10/06/2018 MARCELA MCNALLY DOI Ot E66.9 OBESITY, UNSPECIFIED 10/06/2018 MARCEAL MCNALLY DOI Ot E87.2 ACIDOSIS 10/06/2018 STEPHANIE MCNALLY DO Ot E87.6 HYPOKALEMIA 10/06/2018 STEPHANIE MCNALLY DO Ot F32.9 MAJOR DEPRESSIVE DISORDER, SINGLE EPISOD 10/06/2018 STEPHANIE MCNALLY DO Ot 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 10/06/2018 STEPHANIE MCNALLY DO Ot G47.30 SLEEP APNEA, UNSPECIFIED 10/06/2018 STEPHANIE MCNALLY DO Ot J45.901 UNSPECIFIED ASTHMA WITH (ACUTE) EXACERBA 10/06/2018 STEPHANIE MCNALLY DO Ot R82.998 OTHER ABNORMAL FINDINGS IN URINE 10/06/2018 STEPHANIE MCNALLY DO Ot Z68.43 BODY MASS INDEX (BMI) 50-59.9, ADULT 10/06/2018 STEPHANIE MCNALLY DO Ot Z79.899 OTHER GIFT WRAPPER (CURRENT) DRUG THERAPY 10/06/2018 STEPHANIE MCNALLY DO Ot Z87.891 PERSONAL HISTORY OF NICOTINE DEPENDENCE 10/06/2018 STEPHANIE MCNALLY DO Ot Z98.84 BARIATRIC SURGERY STATUS Procedures Code Description [place] [address] ROUTINE VENIPUNCTURE 10/14/2013 4335430 GFR CALC (RESULT ONLY) 10/14/2013 16274 CMP 10/14/2013 75542 LIPID PANEL 10/14/2013 99804 CBC 10/14/2013 31180 TSH 10/14/2013 99532 INFLUENZA A & B (IN-HOUSE) 10/25/2013 15384 PSYCH DIAGNOSTIC EVALUATION 12/12/2013 25056 ROUTINE VENIPUNCTURE 08/31/2014 35875 INFLUENZA A & B (IN-HOUSE) 08/31/2014 94909 MONO TEST (IN-HOUSE) 08/31/2014 73545 CBC 09/01/2014 6995976 GFR CALC (RESULT ONLY) 09/01/2014 34202 CMP 09/01/2014 04119 MYCOPLASMA ANTIBODY 09/03/2014 Results Test Result Range [...] - 10/04/18 08:30 Bacterial blood culture NG [facility] Bacterial blood culture - 10/04/18 09:04 Bacterial blood culture NG [facility] Complete urinalysis with reflex to culture - 10/04/18 10:17 Urine color determination YELLOW NRG Urine clarity determination SLIGHTLY CLOUDY NR Urine pH measurement by test strip 5 [...] Manual blood myelocytes/100 leukocytes 1 % NRG Complete blood count (CBC) with automated white blood cell (WBC) differential - 10/06/18 05:17 Blood leukocytes automated count (number/volume) 13.9 10*3/uL 4.3-11.0 Blood erythrocytes automated count (number/volume) 4.27 10*6/uL 4.35-5.85 Venous blood hemoglobin measurement (mass/volume) 8.5 g/dL 11.5-16.0 Blood hematocrit (volume fraction) 30 % 35-52 Automated erythrocyte mean corpuscular volume 70 [foz_us] 80-99 Automated erythrocyte mean corpuscular hemoglobin (mass per erythrocyte) 20 pg 25-34 Automated erythrocyte mean corpuscular hemoglobin concentration measurement ( mass/volume) 29 g/dL 32-36 Automated erythrocyte distribution width ratio 19.8 % 10.0-14.5 Automated blood platelet count (count/volume) 339 10*3/uL 130-400 Automated blood platelet mean volume measurement 10.8 [foz_us] 7.4-10.4 Automated blood neutrophils/100 leukocytes 88 % 42-75 Automated blood lymphocytes/100 leukocytes 8 % 12-44 Blood monocytes/100 leukocytes 4 % 0-12 Automated blood eosinophils/100 leukocytes 0 % 0-10 Automated blood basophils/100 leukocytes 0 % 0-10 Blood neutrophils automated count (number/volume) 12.3 10*3 1.8-7.8 Blood lymphocytes automated count (number/volume) 1.1 10*3 1.0-4.0 Blood monocytes automated count (number/volume) 0.5 10*3 0.0-1.0 Automated eosinophil count 0.0 10*3/uL 0.0-0.3 Automated blood basophil count (count/volume) 0.0 10*3/uL 0.0-0.1 Comprehensive metabolic panel - 10/06/18 05:17 Serum or plasma sodium measurement (moles/volume) 140 mmol/L 135-145 Serum or plasma potassium measurement (moles/volume) 4.5 mmol/L 3.6-5.0 Serum or plasma chloride measurement (moles/volume) 109 mmol/L 98-107 Carbon dioxide 21 mmol/L 21-32 Serum or plasma anion gap determination (moles/volume) 10 mmol/L 5-14 Serum or plasma urea nitrogen measurement (mass/volume) 18 mg/dL 7-18 Serum or plasma creatinine measurement (mass/volume) 0.83 mg/dL 0.60-1.30 Serum or plasma urea nitrogen/creatinine mass ratio 22 NRG Serum or plasma creatinine measurement with calculation of estimated glomerular filtration rate > NRG Serum or plasma glucose measurement (mass/volume) 125 mg/dL 70-105 Serum or plasma calcium measurement (mass/volume) 8.6 mg/dL 8.5-10.1 Serum or plasma total bilirubin measurement (mass/volume) 0.2 mg/dL 0.1-1.0 Serum or plasma alkaline phosphatase measurement (enzymatic activity/volume) 83 U/L 40-136 Serum or plasma aspartate aminotransferase measurement (enzymatic activity/ volume) 14 U/L 5-34 Serum or plasma alanine aminotransferase measurement (enzymatic activity/volume ) 15 U/L 0-55 Serum or plasma protein measurement (mass/volume) 6.3 g/dL 6.4-8.2 Serum or plasma albumin measurement (mass/volume) 3.7 g/dL 3.2-4.5 CALCIUM CORRECTED 8.8 mg/dL 8.5-10.1 Complete blood count (CBC) with automated white blood cell (WBC) differential - 11/19/18 21:55 Blood leukocytes automated count (number/volume) 7.8 10*3/uL 4.3-11.0 Blood erythrocytes automated count (number/volume) 4.62 10*6/uL 4.35-5.85 Venous blood hemoglobin measurement (mass/volume) 9.2 g/dL 11.5-16.0 Blood hematocrit (volume fraction) 31 % 35-52 Automated erythrocyte mean corpuscular volume 68 [foz_us] 80-99 Automated erythrocyte mean corpuscular hemoglobin (mass per erythrocyte) 20 pg 25-34 Automated erythrocyte mean corpuscular hemoglobin concentration measurement ( mass/volume) 29 g/dL 32-36 Automated erythrocyte distribution width ratio 19.6 % 10.0-14.5 Automated blood platelet count (count/volume) 284 10*3/uL 130-400 Automated blood platelet mean volume measurement 10.4 [foz_us] 7.4-10.4 Automated blood neutrophils/100 leukocytes 63 % 42-75 Automated blood lymphocytes/100 leukocytes 17 % 12-44 Blood monocytes/100 leukocytes 6 % 0-12 Automated blood eosinophils/100 leukocytes 15 % 0-10 Automated blood basophils/100 leukocytes 0 % 0-10 Blood neutrophils automated count (number/volume) 4.9 10*3 1.8-7.8 Blood lymphocytes automated count (number/volume) 1.3 10*3 1.0-4.0 Blood monocytes automated count (number/volume) 0.5 10*3 0.0-1.0 Automated eosinophil count 1.2 10*3/uL 0.0-0.3 Automated blood basophil count (count/volume) 0.0 10*3/uL 0.0-0.1 PT panel in platelet poor plasma by coagulation assay - 11/19/18 21:55 Prothrombin time (PT) in platelet poor plasma by coagulation assay 13.8 s 12.2-14.7 INR in platelet poor plasma or blood by coagulation assay 1.1 0.8-1.4 Activated partial thromboplastin time (aPTT) in platelet poor plasma bycoagulation assay - 11/19/18 21:55 Activated partial thromboplastin time (aPTT) in platelet poor plasma bycoagulation assay 31 s 24-35 Serum or plasma choriogonadotropin ( test) detection - 11/19/18 21:55 Serum or plasma choriogonadotropin ( test) detection NEGATIVE NEGATIVE Blood manual differential performed detection - 11/19/18 21:55 Blood monocytes/100 leukocytes 0 % NRG Manual blood segmented neutrophils/100 leukocytes 56 % NRG Blood band neutrophils/100 leukocytes 0 % NRG Manual blood lymphocytes/100 leukocytes 29 % NRG Manual eosinophils/100 leukocytes in nose 14 % NRG Manual blood basophils/100 leukocytes 1 % NRG Blood anisocytosis detection by light microscopy SLIGHT NRG Blood ovalocytes detection by light microscopy SLIGHT NRG Blood hypochromia detection by light microscopy MODERATE NRG Blood microcytes detection by light microscopy MODERATE NRG Blood stomatocytes detection by light microscopy SLIGHT NRG Comprehensive metabolic panel - 11/19/18 21:55 Serum or plasma sodium measurement (moles/volume) 138 mmol/L 135-145 Serum or plasma potassium measurement (moles/volume) 3.9 mmol/L 3.6-5.0 Serum or plasma chloride measurement (moles/volume) 106 mmol/L 98-107 Carbon dioxide 20 mmol/L 21-32 Serum or plasma anion gap determination (moles/volume) 12 mmol/L 5-14 Serum or plasma urea nitrogen measurement (mass/volume) 13 mg/dL 7-18 Serum or plasma creatinine measurement (mass/volume) 1.25 mg/dL 0.60-1.30 Serum or plasma urea nitrogen/creatinine mass ratio 10 NRG Serum or plasma creatinine measurement with calculation of estimated glomerular filtration rate 46 NRG Serum or plasma glucose measurement (mass/volume) 139 mg/dL 70-105 Serum or plasma calcium measurement (mass/volume) 9.1 mg/dL 8.5-10.1 Serum or plasma total bilirubin measurement (mass/volume) 0.3 mg/dL 0.1-1.0 Serum or plasma alkaline phosphatase measurement (enzymatic activity/volume) 89 U/L 40-136 Serum or plasma aspartate aminotransferase measurement (enzymatic activity/ volume) 29 U/L 5-34 Serum or plasma alanine aminotransferase measurement (enzymatic activity/volume ) 22 U/L 0-55 Serum or plasma protein measurement (mass/volume) 6.8 g/dL 6.4-8.2 Serum or plasma albumin measurement (mass/volume) 4.0 g/dL 3.2-4.5 CALCIUM CORRECTED 9.1 mg/dL 8.5-10.1 Magnesium - 11/19/18 21:55 Magnesium 2.3 mg/dL 1.8-2.4 Serum or plasma C reactive protein measurement (mass/volume) - 11/19/18 21:55 Serum or plasma C reactive protein measurement (mass/volume) 1.55 mg /dL 0.00-0.50 Influenza virus A and B antigen detection - 11/19/18 21:55 FLU RESULT NEGATIVE FOR INFLUENZA A AND B ANTIGENS BY IA NRG Blood lactic acid measurement (moles/volume) - 11/19/18 21:55 Blood lactic acid measurement (moles/volume) 3.42 mmol/L 0.50-2.00 Streptococcus pyogenes antigen detection - 11/19/18 22:15 Streptococcus pyogenes antigen detection NEGATIVE NEGATIVE Arterial blood gas measurement - 11/19/18 23:08 Blood pCO2 34 mm[Hg] 35-45 Blood pO2 56 mm[Hg] 79-93 Arterial blood bicarbonate measurement (moles/volume) 22 mmol/L 23-27 Arterial blood base excess by calculation -2.1 mmol/L - 2.5-2.5 Arterial blood oxygen saturation measurement 90 % 94-100 * Inhaled oxygen flow rate N NRG Arterial blood pH measurement with patient temperature correction 7.42 7.37-7.43 Arterial blood carbon dioxide, total measurement (moles/volume) 22.8 mmol/L 21.0-31.0 Body site LEFT RADIAL NRG Assessment of wrist artery patency prior to arterial puncture POSITIVE NRG Setting of ventilation mode NO NRG Measurement of body temperature 98.6 NRG Encounters ACCT No. Visit Date/Time Discharge Status Pt. Type Provider Facility Loc./Unit Complaint [id number] 08/31/2014 15:27:00 08/31/2014 23:59:59 CLS Outpatient SOFIE REESE APRN [id number] 03/13/2014 14:00:00 03/13/2014 23:59:59 CLS Outpatient CRYSTAL AMAYA APRN [id number] 12/12/2013 16:57:00 12/12/2013 23:59:59 CLS Outpatient CRYSTAL AMAYA APRN [id number] 12/09/2013 10:07:00 12/09/2013 23:59:59 CLS Outpatient GIO ZHANG [id number] 11/23/2013 15:12:00 11/23/2013 23:59:59 CLS Outpatient YG BELL MD [id number] 11/17/2013 13:46:00 11/17/2013 23:59:59 CLS Outpatient SOFIE REESE APRN [id number] 11/11/2013 14:25:00 11/11/2013 23:59:59 CLS Outpatient HU[facility] MENTAL HEALTH DIRECTORSOFIE Zafar R [id number] 10/25/2013 15:09:00 10/25/2013 23:59:59 CLS Outpatient DESTINY SAMPSON, RICHARD Lim [id number] 10/14/2013 09:14:00 10/14/2013 23:59:59 CLS Outpatient SOFIE REESE APRN R [id number] 10/13/2013 11:31:00 10/13/2013 23:59:59 CLS Outpatient SOFIE REESE APRN R [id number] 09/07/2013 09:08:00 09/07/2013 23:59:59 CLS Outpatient SOFIE REESE APRN R [id number] 11/19/2018 19:10:00 [facility] [id number] 04/27/2018 15:00:00 Document Registration [id number] 10/04/2018 13:08:00 10/06/2018 12:15:00 DIS Outpatient STEPHANIE MCNALLY DO [facility] 4TH ASTHMA [id number] 07/28/2016 15:28:00 08/05/2016 15:00:00 DIS Inpatient JOHN CONCEPCION DO [facility] 4TH ACUTE ASTHMA [id number] 07/27/2016 14:38:00 07/27/2016 23:59:59 CLS Outpatient RONY BUSBY APRN [facility] QUICK [id number] 11/09/2013 06:37:00 02/02/2014 00:01:00 DIS Outpatient PHILIPPE ANDERS [employer] ADMINISTRATOR [facility] LAB ANEMIA [id number] 10/26/2013 16:32:00 11/02/2013 15:47:00 DIS Inpatient GISSELLE SAMPSON, PHILIP Zafar [facility] 4TH SEPTIC SHOCK, UTI SEPSIS , CELLULITIS LLE [id number] 11/19/2018 21:46:00 ACT Emergency BRANDY SAMPSON, VALENTÍN Briggs [facility] ER SOB [id number] 02/03/2014 00:00:00 Document Registration [id number] 08/03/2012 13:06:00 Document Registration
== END 2018-11-19 23:58 | disposition home or self-care (01) ==
LOC: EDUNIT# 21:43 → ER 21:46
DX: J45.901 Unspecified asthma with (acute) exacerbation (principal); K21.9 Gastro-esophageal reflux disease without esophagitis; F41.9 Anxiety disorder, unspecified; F32.9 Major depressive disorder, single episode, unspecified; F91.3 Oppositional defiant disorder; D64.9 Anemia, unspecified; Z87.19 Personal history of other diseases of the digestive system; Z87.448 Personal history of other diseases of urinary system; Z82.49 Family history of ischemic heart disease and other diseases of the circulatory system; Z80.0 Family history of malignant neoplasm of digestive organs; Z88.5 Allergy status to narcotic agent; Z79.51 Long term (current) use of inhaled steroids; Z79.52 Long term (current) use of systemic steroids; Z87.891 Personal history of nicotine dependence; Z98.84 Bariatric surgery status
CPT/HCPCS: 36415; 36600; 71046; 80053; 82805; 83605; 83735; 84703; 85007; 85027; 85610; 85730; 86141; 87040; 87430; 87804; 94640

== ENCOUNTER 2018-11-21 12:16 | Inpatient (IN) | payer SELFPAY ==
[~2018-11-21] VITALS: Ht 162.6 cm; Wt 146.6 kg
[~2018-11-21 12:16] MED LIST changes: +PRD20T PO; +TRAM50TA2 PO
[2018-11-21] MEDS ORDERED: RT-ALBUTEROL/IPRATROPIUM 3 ML (DUONEB) VIAL INH ONE ×2 (12:30→13:00)
--- NOTE | 2018-11-21 12:35 | ED Dyspnea ---
General Stated Complaint: COUGH,CONGESTION Source of Information: Patient Exam Limitations: No Limitations History of Present Illness Date Seen by Provider: Nov 21, 2018 Time Seen by Provider: 12:32 Initial Comments To ER per private vehicle with reports of cough and shortness of breath. She has a history of asthma. She was seen here 2 days ago for the same. She was given prednisone and she is currently taking prednisone 60 mg daily. She has a nebulizer at home and has been using albuterol. On arrival she is quite dyspneic , tachypneic, lungs are diffusely wheezy and diminished throughout, 84% room air. Shes a nonsmoker. Severity: Moderate Prior Episodes/Possible Cause: No Prior Episodes Modifying Factors: Improves With Albuterol Inhaler Associated Symptoms: Cough Allergies and Home Medications Allergies Coded Allergies: morphine (Verified Allergy, Mild, 10/05/18) itch Home Medications Albuterol Sulfate 18 Gm Hfa.aer.ad, 2 PUFF IH Q4H PRN for SHORTNESS OF BREATH, ( Reported) Benzonatate 100 Mg Capsule, 100 MG PO TID PRN for COUGH, (Reported) Budesonide/Formoterol Fumarate 10.2 Gm Hfa.aer.ad, 2 PUFF IH BID, (Reported) Bupropion HCl 150 Mg Tablet.er, 150 MG PO BID, (Reported) Duloxetine HCl 30 Mg Capsule.dr, 30 MG PO BID, (Reported) Ipratropium/Albuterol Sulfate 3 Ml Ampul.neb, 3 ML IH Q4H PRN for SHORTNESS OF BREATH, (Reported) Lorazepam 1 Mg Tablet, 1 MG PO BID PRN for ANXIETY, (Reported) Meloxicam 15 Mg Tablet, 15 MG PO DAILY, (Reported) Prednisone 10 Mg Tab.ds.pk, 10 MG PO DAILY Take 6 tabs(60mg)daily,decrease by 1 tab(10MG)daily. Prescribed by: STEPHANIE MCNALLY on 10/06/18 1035 Prednisone 20 Mg Tab, 60 MG PO DAILY Take 3 tablets daily x 3 days. Take 2 tablets daily x 3 days. Take 1 tablet daily x 3 days. Prescribed by: VALENTÍN NAVA on 11/19/18 639 Tramadol HCl 50 Mg Tablet, 50 MG PO Q6H PRN for PAIN Prescribed by: VALENTÍN NAVA on 11/19/18 497 Zolpidem Tartrate 10 Mg Tablet, 10 MG PO HS, (Reported) Patient Home Medication List Home Medication List Reviewed: Yes Review of Systems Review of Systems Constitutional: see HPI; No chills, No fever EENTM: see HPI Respiratory: see HPI, cough, dyspnea on exertion, short of breath, wheezing Cardiovascular: no symptoms reported Genitourinary: no symptoms reported Musculoskeletal: no symptoms reported Skin: no symptoms reported Psychiatric/Neurological: No Symptoms Reported Past Bexsdgz-Snrmvl-Lpdoxk Hx Patient Social History Type Used: Cigarettes Former Smoker, Quit: Jul 27, 2013 Recent Foreign Travel: No Contact w/Someone Who Travel: No Recent Hopitalizations: No Immunizations Up To Date Tetanus Booster (TDap): Unknown PED Vaccines UTD: Yes Date of Pneumonia Vaccine: Oct 22, 2008 Date of Influenza Vaccine: Jun 24, 2018 Seasonal Allergies Seasonal Allergies: No Past Medical History Surgeries: Yes (GASTRIC BYPASS - 2001) Abdominal Respiratory: Yes Asthma Currently Using BIPAP: Yes Cardiac: No Neurological: No Reproductive Disorders: No Sexually Transmitted Disease: No HIV/AIDS: No Bladder Infection Gastroesophageal Reflux, Chronic Constipation Musculoskeletal: No Chronic Back Pain Endocrine: No Cancer: No Psychosocial: No Sleep Difficulties, Anxiety, ODD, Depression Integumentary: Yes Blood Disorders: Yes (ANEMIA) Adverse Reaction/Blood Tranf: No Family Medical History Cancer 03 FATHER (PANCREATITC) Family history: Cardiovascular disease 03 FATHER (DC) Physical Exam Vital Signs Capillary Refill : Height, Weight, BMI Height: 5'8.00" Weight: 250lbs. 6.0oz. [id number]; 57.3 BMI Method:Estimated General Appearance: WD/WN, Moderate Distress, Obese HEENT: PERRL/EOMI, TMs Normal Respiratory: Decreased Breath Sounds, Respiratory Distress, Wheezing Cardiovascular: Normal Peripheral Pulses, Tachycardia Gastrointestinal: Normal Bowel Sounds, Non Tender, Soft Neurologic/Psychiatric: Alert, Oriented x3 Skin: Normal Color, Warm/Dry Progress/Results/Core Measures Results/Orders My Orders Orders - AVIS PERRY APRN Cbc With Automated Diff (11/21/18 12:26) Comprehensive Metabolic Panel (11/21/18 12:26) Ua Culture If Indicated (11/21/18 12:26) Influenza A And B Antigens (11/21/18 12:26) Chest 1 View, Ap/Pa Only (11/21/18 12:26) Albuterol/Ipra Inhalation Soln (Duoneb I (11/21/18 12:30) Svn Small Volume Nebulizer (11/21/18 12:27) Magnesium (11/21/18 12:29) Departure Impression Primary Impression: Acute asthma exacerbation Qualified Codes: J45.901 - Unspecified asthma with (acute) exacerbation Disposition: ADMITTED INPATIENT Condition: Stable Admissions Decision to Admit Reason: Admit from ER (General) Decision to Admit/Date: Nov 21, 2018 Time/Decision to Admit Time: 12:35 Transfer Time Spoke to Accepting Phy: 12:35 Departure-Patient Inst. Referrals: [facility] (PCP/Family) Primary Care Physician AVIS PERRY APRN Nov 21, 2018 12:35
[2018-11-21 12:45] LABS: BASOPHILS % (AUTO) 0 % (0-10); EOSINOPHILS # (AUTO) 0.1 10^3/uL (0.0-0.3); EOSINOPHILS % (AUTO) 1 % (0-10); HEMATOCRIT 33 % (35-52); HEMOGLOBIN 9.4 G/DL (11.5-16.0); LYMPHOCYTES # (AUTO) 0.5 X 10^3 (1.0-4.0); LYMPHOCYTES % (AUTO) 5 % (12-44); MEAN CORPUSCULAR HEMOGLOBIN 20 PG (25-34); MEAN CORPUSCULAR HGB CONC 28 G/DL (32-36); MEAN CORPUSCULAR VOLUME 69 FL (80-99); MONOCYTES # (AUTO) 0.4 X 10^3 (0.0-1.0); MONOCYTES % (AUTO) 4 % (0-12); NEUTROPHILS # (AUTO) 7.9 X 10^3 (1.8-7.8); NEUTROPHILS % (AUTO) 90 % (42-75); PLATELET COUNT 288 10^3/uL (130-400); RED CELL DISTRIBUTION WIDTH 20.1 % (10.0-14.5); WHITE BLOOD COUNT 8.8 10^3/uL (4.3-11.0)
[2018-11-21] MEDS ORDERED: MAGNESIUM 1 GM/100 ML IVPB 100 ML IV ONE (12:45)
--- NOTE | 2018-11-21 12:48 | Diagnostic Imaging Report ---
Indication: Shortness of breath. Comparison with 11/19/2018. Findings: The lungs remain well-aerated and clear. Heart upper limits of normal. No evidence of pulmonary edema. No pneumothorax or pleural effusion. No bony abnormalities. Impression: Negative portable chest unchanged since previous exam. Dictated by: Dictated on workstation # [id number]
[2018-11-21] MEDS ORDERED: RT-ALBUTEROL SULF 2.5 MG/3 ML PRE-MIX VIAL INH SCH (13:00)
[2018-11-21 13:03] LABS: ALANINE AMINOTRANSFERASE 21 U/L (0-55); ALBUMIN 4.2 GM/DL (3.2-4.5); ALKALINE PHOSPHATASE 84 U/L (40-136); BILIRUBIN,TOTAL 0.3 MG/DL (0.1-1.0); BUN/CREATININE RATIO 15; CALCIUM 9.3 MG/DL (8.5-10.1); CARBON DIOXIDE 19 MMOL/L (21-32); CHLORIDE 108 MMOL/L (98-107); CREATININE SERUM 0.96 MG/DL (0.60-1.30); GFR ESTIMATED > 60; GLUCOSE 121 MG/DL (70-105); MAGNESIUM 2.3 MG/DL (1.8-2.4); POTASSIUM 4.3 MMOL/L (3.6-5.0); SODIUM 140 MMOL/L (135-145)
[2018-11-21 13:18] LABS: ELLIPT/OVALOCYTES SLIGHT; EOSINOPHILS % (MANUAL) 1 %; HYPOCHROMASIA SLIGHT; LYMPHOCYTES % (MANUAL) 5 %; MICROCYTOSIS SLIGHT; MONOCYTES % (MANUAL) 2 %; NEUTROPHILS % (MANUAL) 92 %; STOMATOCYTES SLIGHT
[2018-11-21] MEDS ORDERED: LORazepam INJ 2 MG/ML (ATIVAN) VIAL IVP PRN (13:30)
[2018-11-21] MEDS ORDERED: methylPREDNISolone 125 MG (Solu-MEDROL) VIAL IVP ONE (13:30)
[2018-11-21 13:54] LABS: ABG BASE EXCESS -2.7 MMOL/L (-2.5-2.5); ABG OXYGEN SATURATION 95 % (94-100); ABG PCO2 34 MMHG (35-45); ABG PH 7.41 (7.37-7.43); ABG PO2 73 MMHG (79-93); ABG TCO2 22.3 MMOL/L (21.0-31.0)
[2018-11-21 13:59] LABS: ALLENS TEST YES-POS; INSPIRED O2 8; PATIENT TEMP 98.8; VENTILATOR NO
[2018-11-21] MEDS ORDERED: ENOXAPARIN 40 MG/0.4 ML (LOVENOX) SYR SC SCH (14:00)
--- NOTE | 2018-11-21 14:05 | NUR ---
APRIL DUARTE admitted to room 416-1, with an admitting diagnosis of AST, on 11/21/18 from ED via WHEELCHAIR, accompanied by ED STAFF. APRIL DUARTE introduced to surroundings, call light, bed controls, phone, TV, temperature control, lights, meal times, smoking policy, visitor policy, side rail policy, bathrooms and showers. Patient Rights given to patient in the handbook. APRIL DUARTE verbalizes understanding that [facility] is not responsible for the loss or damage to any personal effects or valuables that are kept in the patients posession during their hospitalization. APRIL DUARTE verbalizes understanding of Interdisciplinary Patient Education. Patient and/or family were informed about the Rapid Response Team and its purpose.
[2018-11-21] MEDS ORDERED: NS IV 1000 ML 1,000 ML IV SCH ×2 (14:15)
[2018-11-21] MEDS ORDERED: ONDANSETRON 4 MG/2 ML (SDV) Z0FRAN IV PRN (14:15)
[2018-11-21] MEDS ORDERED: CATHETER FLUSH 10 ML SYR IV PRN (14:30)
[2018-11-21] MEDS: ACETAMINOPHEN 325 MG TABLET PO PRN (14:39)
[2018-11-21 14:40] VITALS: BP 156/77
[2018-11-21] MEDS ORDERED: BUPR150T9 PO (15:05)
[2018-11-21] MEDS ORDERED: RT-ALBUTEROL/IPRATROPIUM 3 ML (DUONEB) VIAL IH PRN ×2 (15:15→17:30)
[2018-11-21] MEDS ORDERED: RT-ALBUTEROL SULF 2.5 MG/3 ML PRE-MIX VIAL INH PRN (15:15)
--- NOTE | 2018-11-21 15:17 | NUR ---
THIS RN NOTIFIED DR. MCNALLY HOME MEDICATIONS ARE READY TO REVIEW. GAVE TELEPHONE ORDER TO RESTART ALL MEDICATIONS EXCEPT HOLD PREDNISONE
[2018-11-21] MEDS ORDERED: ZOLPIDEM 5 MG (AMBIEN) TAB PO PRN (15:30)
[2018-11-21] MEDS: LORazepam 1 MG (ATIVAN) TAB PO PRN (15:37)
[2018-11-21 16:09] VITALS: BP 166/90
[2018-11-21 16:30] VITALS: BP 125/65
--- OUTSIDE RECORDS SUMMARY | 2018-11-21 16:46 | XMS REPORT | Continuity of Care Document ---
Author Author [facility] Address Unknown Phone Unavailable Allergies Active Description Code Type Severity Reaction Onset Reported/Identified Relationship to Patient Clinical Status Yes No Known Drug Allergies [id number] Drug Allergy Unknown N/A 10/26/2013 Yes morphine [id number] Drug Allergy Mild N/A 10/05/2018 Medications There is no data. Problems Date Dx Coded Attending Type Code Diagnosis Diagnosed By 09/07/2013 HUGH BONILLA, SOFIE R 493.90 ASTHMA UNSPECIFIED 09/07/2013 HUGH OCCUPATIONAL HEALTH SPECIALIST, SOFIE R 786.2 COUGH 09/07/2013 HUGH OCCUPATIONAL HEALTH SPECIALIST, SOFIE R 493.90 ASTHMA UNSPECIFIED 09/07/2013 HUGH OCCUPATIONAL HEALTH SPECIALIST, SOFIE R 786.2 COUGH 09/07/2013 HUGH OCCUPATIONAL HEALTH SPECIALIST, SOFIE R 493.90 ASTHMA UNSPECIFIED 09/07/2013 HUGH OCCUPATIONAL HEALTH SPECIALIST, SOFIE R 786.2 COUGH 09/07/2013 RICHARD DIXON MD 493.90 ASTHMA UNSPECIFIED 09/07/2013 RICHARD DIXON MD 786.2 COUGH 09/07/2013 HUGH OCCUPATIONAL HEALTH SPECIALIST, SOFIE R 493.90 ASTHMA UNSPECIFIED 09/07/2013 HUGH OCCUPATIONAL HEALTH SPECIALIST, SOFIE R 786.2 COUGH 09/07/2013 HUGH OCCUPATIONAL HEALTH SPECIALIST, SOFIE R 493.90 ASTHMA UNSPECIFIED 09/07/2013 HUGH OCCUPATIONAL HEALTH SPECIALIST, SOFIE R 786.2 COUGH 09/07/2013 YG BELL MD 493.90 ASTHMA UNSPECIFIED 09/07/2013 YG BELL MD 786.2 [facility]GH [facility] 09/07/2013 [facility], GIO Martinez 786.2 COUGH 09/07/2013 MONIQUE BONILLA, CRYSTAL ESPINAL 493.90 ASTHMA UNSPECIFIED 09/07/2013 CRYSTAL AMAYA APRN 786.2 COUGH 09/07/2013 CRYSTAL AMAYA APRN 493.90 ASTHMA UNSPECIFIED 09/07/2013 CRYSTAL AMAYA APRN 786.2 COUGH 09/07/2013 HUGH OCCUPATIONAL HEALTH SPECIALIST, SOFIE R 493.90 ASTHMA UNSPECIFIED 09/07/2013 HUGH [...] V58.69 HIGH RISK MEDICATION (LONG-TERM) 10/13/2013 [facility] ABNORMAL WEIGHT GAIN 10/13/2013 VAZQUEZ [...] V58.69 HIGH RISK MEDICATION (LONG-TERM) 10/13/2013 HUGH OCCUPATIONAL HEALTH SPECIALIST, SOFIE R 783.1 ABNORMAL WEIGHT GAIN 10/13/2013 HUGH OCCUPATIONAL HEALTH SPECIALIST, SOFIE R V45.86 BARIATRIC SURGERY STATUS 10/13/2013 HUGH OCCUPATIONAL HEALTH SPECIALIST, SOFIE R V58.69 HIGH RISK MEDICATION (LONG-TERM) 10/25/2013 DESTINY SAMPSON, RICHARD Lim 780.60 Fever 10/25/2013 HUGH BONILLA, SOFIE R 780.60 Fever 10/25/2013 HUGH BONILLA, SOFIE R 780.60 Fever 10/25/2013 RAY SAMPSON, YG 780.60 Fever 10/25/2013 [facility], GIO Martinez 780.60 Fever 10/25/2013 AMAYAZARIA [...] PITTS MD Ot V12.29 PERSONAL HX OF [facility] ENDOCRINE, METABOLIC 11/02/2013 PHILIP PITTS MD Ot V45.86 BARIATRIC SURGERY STATUS 11/09/2013 SOFIE REESE APRN R 682.6 CELLULITIS AND ABSCESS OF LEG EXCEPT FOOT 11/09/2013 SOFIE REESE APRN R 682.6 CELLULITIS AND ABSCESS OF LEG EXCEPT FOOT 11/09/2013 YG BELL MD 682.6 CELLULITIS AND ABSCESS OF LEG EXCEPT FOOT 11/09/2013 [facility], GIO Martinez 682.6 CELLULITIS AND ABSCESS [...] 312.39 OTHER DISORDERS OF IMPULSE CONTROL 11/11/2013 [facility], GIO Martinez 312.39 OTHER DISORDERS OF IMPULSE CONTROL 11/11/2013 CRYSTAL AMAYA APRN 312.39 OTHER DISORDERS OF IMPULSE CONTROL 11/11/2013 CRYSTAL AMAYA APRN 312.39 OTHER DISORDERS OF IMPULSE CONTROL 11/11/2013 SOFIE REESE APRN R 312.39 OTHER DISORDERS OF IMPULSE CONTROL 12/09/2013 [facility].00 AN ANXIETY UNSPEC 12/09/2013 CRYSTAL [...] I IMPULSE CONTROL DISORDER NOS 12/12/2013 HUGH OCCUPATIONAL HEALTH SPECIALISTYUE ZafarINA R 307.50 EA EATING DISORDER UNSPECIFIED 12/12/2013 HUGH IRENEYUESOFIE R 312.30 I IMPULSE CONTROL DISORDER NOS 02/02/2014 ANDERSPHILIPPE POMPA TECHNICAL HEALTHCARE CONSULTANT Ot 276.8 HYPOPOTASSEMIA 02/02/2014 PHILIPPE ANDERS TECHNICAL HEALTHCARE CONSULTANT Ot 285.9 ANEMIA NOS 08/31/2014 HUGH OCCUPATIONAL HEALTH SPECIALISTSOFIE Zafar R 462 ACUTE PHARYNGITIS 07/27/2016 Ot [...] MCNALLY DOI Ot E66.9 OBESITY, UNSPECIFIED 10/06/2018 MARCELA MCNALLY DOI Ot E87.2 ACIDOSIS 10/06/2018 STEPHANIE MCNALLY DO Ot E87.6 HYPOKALEMIA 10/06/2018 STEPHANIE MCNALLY DO Ot F32.9 MAJOR DEPRESSIVE DISORDER, SINGLE EPISOD 10/06/2018 STEPHANIE MCNALLY DO Ot 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 10/06/2018 SETPHANIE MCNALLY DO Ot G47.30 SLEEP APNEA, UNSPECIFIED 10/06/2018 STEPHANIE MCNALLY DO Ot J45.901 UNSPECIFIED ASTHMA WITH (ACUTE) EXACERBA 10/06/2018 STEPHANIE MCNALLY DO Ot R82.998 OTHER ABNORMAL FINDINGS IN URINE 10/06/2018 STEPHANIE MCNALLY DO Ot Z68.43 BODY MASS INDEX (BMI) 50-59.9, ADULT 10/06/2018 STEPHANIE MCNALLY DO Ot Z79.899 OTHER DATA COMMUNICATIONS ENGINEER (CURRENT) DRUG THERAPY 10/06/2018 STEPHANIE MCNALLY DO Ot Z87.891 PERSONAL HISTORY OF NICOTINE DEPENDENCE 10/06/2018 STEPHANIE MCNALLY DO Ot Z98.84 BARIATRIC SURGERY STATUS Procedures Code [place] [address] ROUTINE VENIPUNCTURE 10/14/2013 4653605 GFR CALC (RESULT ONLY) 10/14/2013 69056 CMP 10/14/2013 05676 LIPID PANEL 10/14/2013 64457 CBC 10/14/2013 78412 TSH 10/14/2013 42076 INFLUENZA A & B (IN-HOUSE) 10/25/2013 08953 PSYCH DIAGNOSTIC EVALUATION 12/12/2013 68479 ROUTINE VENIPUNCTURE 08/31/2014 05551 INFLUENZA A & B (IN-HOUSE) 08/31/2014 93157 MONO TEST (IN-HOUSE) 08/31/2014 80351 CBC 09/01/2014 9711971 GFR CALC (RESULT ONLY) 09/01/2014 45454 CMP 09/01/2014 44419 MYCOPLASMA ANTIBODY 09/03/2014 Results Test Result Range [...] - 10/04/18 08:30 Bacterial blood culture NG [facility] Bacterial blood culture - 10/04/18 09:04 Bacterial blood culture NG [facility] Complete urinalysis with reflex to culture [...] Status Pt. Type Provider Facility Loc./Unit Complaint [id number] 08/31/2014 15:27:00 08/31/2014 23:59:59 CLS Outpatient SOFIE REESE APRN [id number] 03/13/2014 14:00:00 03/13/2014 23:59:59 CLS Outpatient CRYSTAL AMAYA APRN [id number] 12/12/2013 16:57:00 12/12/2013 23:59:59 CLS Outpatient CRYSTAL AMAYA APRN [id number] 12/09/2013 10:07:00 12/09/2013 23:59:59 CLS Outpatient GIO ZHANG [id number] 11/23/2013 15:12:00 11/23/2013 23:59:59 CLS Outpatient YG BELL MD [id number] 11/17/2013 13:46:00 11/17/2013 23:59:59 CLS Outpatient SOFIE REESE APRN [id number] 11/11/2013 14:25:00 11/11/2013 23:59:59 CLS Outpatient HUGH OCCUPATIONAL HEALTH SPECIALISTSOFIE Zafar R [id number] 10/25/2013 15:09:00 10/25/2013 23:59:59 CLS Outpatient DESTINY SAMPSON, RICHARD Lim [id number] 10/14/2013 09:14:00 10/14/2013 23:59:59 CLS Outpatient SOFIE REESE APRN R [id number] 10/13/2013 11:31:00 10/13/2013 23:59:59 CLS Outpatient SOFIE REESE APRN R [id number] 09/07/2013 09:08:00 09/07/2013 23:59:59 CLS Outpatient SOFIE REESE APRN R [id number] 11/19/2018 19:10:00 [facility] [id number] 04/27/2018 15:00:00 Document Registration [id number] 10/04/2018 13:08:00 10/06/2018 12:15:00 DIS Outpatient STEPHANIE MCNALLY DO Via [facility] 4TH ASTHMA [id number] 07/28/2016 15:28:00 08/05/2016 15:00:00 DIS Inpatient JOHN CONCEPCION DO Via [facility] 4TH ACUTE ASTHMA [id number] 07/27/2016 14:38:00 07/27/2016 23:59:59 CLS Outpatient RONY BUSBY APRN Via [facility] QUICK [id number] 11/09/2013 06:37:00 02/02/2014 00:01:00 DIS Outpatient PHILIPPE ANDERS TECHNICAL HEALTHCARE CONSULTANT Via [facility] LAB ANEMIA [id number] 10/26/2013 16:32:00 11/02/2013 15:47:00 DIS Inpatient GISSELLE SAMPSON, PHILIP Zafar Via [facility] 4TH SEPTIC SHOCK, UTI SEPSIS , CELLULITIS LLE [id number] 11/19/2018 21:46:00 ACT Emergency BRANDY SAMPSON, VALENTÍN Briggs Via [facility] ER SOB [id number] 02/03/2014 00:00:00 Document Registration [id number] 08/03/2012 13:06:00 Document Registration
--- OUTSIDE RECORDS SUMMARY | 2018-11-21 17:42 | XMS REPORT | Continuity of Care Document ---
Author Author [facility] of [facility] of [facility] Address Unknown Phone Unavailable Allergies Active Description Code Type Severity Reaction Onset Reported/Identified Relationship to Patient Clinical Status Yes No Known Drug Allergies [id number] Drug Allergy Unknown N/A 10/26/2013 Yes morphine [id number] Drug Allergy Mild N/A 10/05/2018 Medications There is no data. Problems Date Dx Coded Attending Type Code Diagnosis Diagnosed By 09/07/2013 HUGH BONILLA, SOFIE R 493.90 ASTHMA UNSPECIFIED 09/07/2013 HUGH MARINE REPORTER, SOFIE R 786.2 COUGH 09/07/2013 HUGH MARINE REPORTER, SOFIE R 493.90 ASTHMA UNSPECIFIED 09/07/2013 HUGH MARINE REPORTER, SOFIE R 786.2 COUGH 09/07/2013 HUGH MARINE REPORTER, SOFIE R 493.90 ASTHMA UNSPECIFIED 09/07/2013 HUGH MARINE REPORTER, SOFIE R 786.2 COUGH 09/07/2013 RICHARD DIXON MD 493.90 ASTHMA UNSPECIFIED 09/07/2013 RICHARD DIXON MD 786.2 COUGH 09/07/2013 HUGH MARINE REPORTER, SOFIE R 493.90 ASTHMA UNSPECIFIED 09/07/2013 HUGH MARINE REPORTER, SOFIE R 786.2 COUGH 09/07/2013 HUGH MARINE REPORTER, SOFIE R 493.90 ASTHMA UNSPECIFIED 09/07/2013 HUGH MARINE REPORTER, SOFIE R 786.2 COUGH 09/07/2013 YG BELL MD 493.90 ASTHMA UNSPECIFIED 09/07/2013 YG BELL MD 786.2 COUGH 09/07/2013 [facility] 493.90 ASTHMA UNSPECIFIED 09/07/2013 [facility], GIO Martinez 786.2 COUGH 09/07/2013 MONIQUE BONILLA, CRYSTAL ESPINAL 493.90 ASTHMA UNSPECIFIED 09/07/2013 CRYSTAL AMAYA APRN 786.2 COUGH 09/07/2013 CRYSTAL AMAYA APRN 493.90 ASTHMA UNSPECIFIED 09/07/2013 CRYSTAL AMAYA APRN 786.2 COUGH 09/07/2013 HUGH MARINE REPORTER, SOFIE R 493.90 ASTHMA UNSPECIFIED 09/07/2013 HUGH [...] V58.69 HIGH RISK MEDICATION (LONG-TERM) [facility]13[facility]2013 [facility] ABNORMAL WEIGHT GAIN 10/13/2013 VAZQUEZ [...] V58.69 HIGH RISK MEDICATION (LONG-TERM) 10/13/2013 HUGH MARINE REPORTER, SOFIE R 783.1 ABNORMAL WEIGHT GAIN 10/13/2013 HUGH MARINE REPORTER, SOFIE R V45.86 BARIATRIC SURGERY STATUS 10/13/2013 HUGH MARINE REPORTER, SOFIE R V58.69 HIGH RISK MEDICATION (LONG-TERM) 10/25/2013 DESTINY SAMPSON, RICHARD Lim 780.60 Fever 10/25/2013 HUGH BONILLA, SOFIE R 780.60 Fever 10/25/2013 HUGH BONILLA, SOFIE R 780.60 Fever 10/25/2013 RAY SAMPSON, YG 780.60 Fever 10/25/2013 [facility], GIO Martinez 780.60 Fever 10/25/2013 AMAYAZARIA MCNAMARAN, [...] PITTS MD Ot V12.[address] [facility] ENDOCRINE, METABOLIC 11/02/2013 PHILIP PITTS MD Ot V45.86 BARIATRIC SURGERY STATUS 11/09/2013 SOFIE REESE APRN R 682.6 CELLULITIS AND ABSCESS OF LEG EXCEPT FOOT 11/09/2013 SOFIE REESE APRN R 682.6 CELLULITIS AND ABSCESS OF LEG EXCEPT FOOT 11/09/2013 YG BELL MD 682.6 CELLULITIS AND ABSCESS OF LEG EXCEPT FOOT 11/09/2013 [facility], GIO Martinez 682.6 CELLULITIS AND ABSCESS OF [...] 312.39 OTHER DISORDERS OF IMPULSE CONTROL 11/11/2013 [facility], GIO Martinez 312.39 OTHER DISORDERS OF IMPULSE CONTROL 11/11/2013 CRYSTAL AMAYA APRN 312.39 OTHER DISORDERS OF IMPULSE CONTROL 11/11/2013 CRYSTAL AMAYA APRN 312.39 OTHER DISORDERS OF IMPULSE CONTROL 11/11/2013 SOFIE REESE APRN R 312.39 OTHER DISORDERS OF IMPULSE CONTROL 12/09/2013 [facility] 300.00 AN ANXIETY UNSPEC 12/09/2013 CRYSTAL AMAYA [...] I IMPULSE CONTROL DISORDER NOS 12/12/2013 HUGH MARINE REPORTERYUE ZafarINA R 307.50 EA EATING DISORDER UNSPECIFIED 12/12/2013 HUGH IRENEYUESOFIE R 312.30 I IMPULSE CONTROL DISORDER NOS 02/02/2014 ANDERSPHILIPPE POMPA ROLL PRESS OPERATOR Ot 276.8 HYPOPOTASSEMIA 02/02/2014 PHILIPPE ANDERS ROLL PRESS OPERATOR Ot 285.9 ANEMIA NOS 08/31/2014 HUGH MARINE REPORTERSOFIE Zafar R 462 ACUTE PHARYNGITIS 07/27/2016 Ot [...] 10/06/2018 STEPHANIE MCNALLY DO Ot Z79.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 MOLD CLAMPER (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) DRUG 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 10/06/2018 STEPHANIE MCNALLY DO Ot Z87.891 PERSONAL HISTORY OF NICOTINE DEPENDENCE 10/06/2018 STEPHANIE MCNALLY DO Ot Z98.84 BARIATRIC SURGERY STATUS Procedures Code Description [place] [address] ROUTINE VENIPUNCTURE 10/14/2013 4346913 GFR CALC (RESULT ONLY) 10/14/2013 53338 CMP 10/14/2013 24314 LIPID PANEL 10/14/2013 37804 CBC 10/14/2013 49315 TSH 10/14/2013 00420 INFLUENZA A & B (IN-HOUSE) 10/25/2013 36526 PSYCH DIAGNOSTIC EVALUATION 12/12/2013 02602 ROUTINE VENIPUNCTURE 08/31/2014 93502 INFLUENZA A & B (IN-HOUSE) 08/31/2014 74639 MONO TEST (IN-HOUSE) 08/31/2014 39098 CBC 09/01/2014 6484644 GFR CALC (RESULT ONLY) 09/01/2014 97330 CMP 09/01/2014 90667 MYCOPLASMA ANTIBODY 09/03/2014 Results Test Result Range [...] - 10/04/18 08:30 Bacterial blood culture NG [facility] Bacterial blood culture - 10/04/18 09:04 Bacterial blood culture NG [facility] Complete urinalysis with reflex to culture - [...] Status Pt. Type Provider Facility Loc./Unit Complaint [id number] 08/31/2014 15:27:00 08/31/2014 23:59:59 CLS Outpatient SOFIE REESE APRN [id number] 03/13/2014 14:00:00 03/13/2014 23:59:59 CLS Outpatient CRYSTAL AMAYA APRN [id number] 12/12/2013 16:57:00 12/12/2013 23:59:59 CLS Outpatient CRYSTAL AMAYA APRN [id number] 12/09/2013 10:07:00 12/09/2013 23:59:59 CLS Outpatient GIO ZHANG [id number] 11/23/2013 15:12:00 11/23/2013 23:59:59 CLS Outpatient YG BELL MD [id number] 11/17/2013 13:46:00 11/17/2013 23:59:59 CLS Outpatient SOFIE REESE APRN [id number] 11/11/2013 14:25:00 11/11/2013 23:59:59 CLS Outpatient HUGH MARINE REPORTERSOFIE Zafar R [id number] 10/25/2013 15:09:00 10/25/2013 23:59:59 CLS Outpatient DESTINY SAMPSON, RICHARD Lim [id number] 10/14/2013 09:14:00 10/14/2013 23:59:59 CLS Outpatient SOFIE REESE APRN R [id number] 10/13/2013 11:31:00 10/13/2013 23:59:59 CLS Outpatient SOFIE REESE APRN R [id number] 09/07/2013 09:08:00 09/07/2013 23:59:59 CLS Outpatient SOFIE REESE APRN R [id number] 11/19/2018 19:10:00 ACT [facility] [id number] 04/27/2018 15:00:00 Document Registration [id number] 10/04/2018 13:08:00 10/06/2018 12:15:00 DIS Outpatient STEPHANIE MCNALLY DO Via [facility] 4TH ASTHMA [id number] 07/28/2016 15:28:00 08/05/2016 15:00:00 DIS Inpatient JOHN CONCEPCION DO Via [facility] 4TH ACUTE ASTHMA [id number] 07/27/2016 14:38:00 07/27/2016 23:59:59 CLS Outpatient RONY BUSBY APRN Via [facility] QUICK [id number] 11/09/2013 06:37:00 02/02/2014 00:01:00 DIS Outpatient PHILIPPE ANDERS ROLL PRESS OPERATOR Via [facility] LAB ANEMIA [id number] 10/26/2013 16:32:00 11/02/2013 15:47:00 DIS Inpatient GISSELLE SAMPSON, PHILIP Zafar Via [facility] 4TH SEPTIC SHOCK, UTI SEPSIS , CELLULITIS LLE [id number] 11/19/2018 21:46:00 ACT Emergency BRANDY SAMPSON, VALENTÍN Briggs Via [facility] ER SOB [id number] 02/03/2014 00:00:00 Document Registration [id number] 08/03/2012 13:06:00 Document Registration
[2018-11-21] MEDS ORDERED: PATIENT MAY USE OWN MEDS, ALL MC SCH (18:15)
[2018-11-21 18:30] VITALS: BP 132/60
[2018-11-21 20:30] VITALS: BP 114/79
[2018-11-21] MEDS ORDERED: NON-FORMULARY MEDICATION 1 EA EA (Budesonide/Formoterol Fumarate (Symbicort 160-4.5 Mcg In IH SCH (21:00)
[2018-11-21] MEDS ORDERED: BUPROPION HCL 150 MG PO SCH (21:00)
[2018-11-21] MEDS ORDERED: NON-FORMULARY MEDICATION 1 EA EA (Zolpidem Tartrate 10 MG) PO SCH (21:00)
[2018-11-21] MEDS: RT-BUDESONIDE NEBS 0.5 MG/2ML (PULMICORT) AMP INH SCH (21:40)
[2018-11-21] MEDS: methylPREDNISolone 125 MG (Solu-MEDROL) VIAL IV SCH (21:42)
[2018-11-21] MEDS: ZOLPIDEM 5 MG (AMBIEN) TAB PO SCH (21:43)
[2018-11-21] MEDS: buPROPion SR 150 MG (WELLBUTRIN SR) TAB PO SCH (21:43)
[2018-11-21] MEDS: RT-ALBUTEROL/IPRATROPIUM 3 ML (DUONEB) VIAL INH SCH ×2 (23:53→23:55)
[2018-11-21] MEDS: RT-ADVAIR HFA 115/21 MCG PER PUFF IH SCH (23:53)
[2018-11-21] MEDS: BENZONATATE 100 MG (TESSALON) CAPSULE PO PRN (23:56)
[2018-11-22] VITALS (7 sets, daily range): BP systolic 126–142; BP diastolic 60–88
[2018-11-22] MEDS: LORazepam 1 MG (ATIVAN) TAB PO PRN ×2 (00:02→14:23)
[2018-11-22] MEDS: RT-ALBUTEROL/IPRATROPIUM 3 ML (DUONEB) VIAL INH SCH ×6 (02:26→21:56)
[2018-11-22] MEDS: methylPREDNISolone 125 MG (Solu-MEDROL) VIAL IV SCH (06:20)
[2018-11-22] MEDS: RT-ADVAIR HFA 115/21 MCG PER PUFF IH SCH ×2 (06:28→21:55)
[2018-11-22] MEDS: RT-BUDESONIDE NEBS 0.5 MG/2ML (PULMICORT) AMP INH SCH (06:35)
[2018-11-22] MEDS: DULoxetine 30 MG (CYMBALTA) CAP PO SCH (08:19)
[2018-11-22] MEDS: BENZONATATE 100 MG (TESSALON) CAPSULE PO PRN (08:20)
[2018-11-22] MEDS: buPROPion SR 150 MG (WELLBUTRIN SR) TAB PO SCH ×2 (08:20→21:17)
[2018-11-22] MEDS: MELOXICAM 7.5 MG (MOBIC) TABLET PO SCH (08:20)
[2018-11-22] MEDS ORDERED: BUPROPION HCL 300 MG PO SCH (09:00)
[2018-11-22] MEDS ORDERED: MELOXICAM 7.5 MG PO SCH (09:00)
[2018-11-22] MEDS ORDERED: DULOXETINE HCL 90 MG PO SCH (09:00)
[2018-11-22] MEDS ORDERED: ENOXAPARIN 40 MG/0.4 ML (LOVENOX) SYR SC SCH (10:00)
--- NOTE | 2018-11-22 10:00 | NUR ---
INCREASED ENOXAPARIN DOSE TO 60MG SQ Q12 HOURS DUE TO PATIENTS BMI OF 57.
[2018-11-22] MEDS: OSELTAMIVIR 75 MG (TAMIFLU) CAPSULE PO SCH ×2 (10:02→21:17)
[2018-11-22] MEDS: ENOXAPARIN 60 MG/0.6 ML (LOVENOX) SYR SC SCH ×2 (10:07→21:16)
--- NOTE | 2018-11-22 12:24 | History & Physicial (CHS) ---
ALEXSANDER STOKES MED STUDENT 11/22/18 1224: HPI History of Present Illness: The patient presented to the [facility] ER yesterday for cough and shortness of breath. She had been seen 2 days earlier and was given prednisone. On admission she was found to have O2 sat of 84% and was weezy and tachypneic. She tested positive for influenza A and was admitted for treatment and observation. She is currently resting and appears to be minimally distressed and uncomfortable. She states that she is having a cough that is productive of clear/white fluid. She also reports pain in her LUQ when coughing. The rest of the ROS was unremarkable. Attending Physician Philip Padilla MD [facility] Consult Date of Admission Nov 21, 2018 at 13:30 Home Medications Home Medications Reviewed patient Home Medication Reconciliation performed by pharmacy medication reconciliations hospital technician and/or nursing. Patients Allergies have been reviewed. Allergies Coded Allergies: morphine (Verified Allergy, Mild, 10/05/18) itch NZD-Dtvtpn-Yecuar Hx Patient Social History Alcohol Use: Occasionally Uses Recreational Drug Use: No Smoking Status: Former Smoker Type Used: Cigarettes Recent Foreign Travel: No Contact w/other who traveled: No Recent Hopitalizations: No Recent Infectious Disease Expo: No Physical Abuse Screen: No Sexual Abuse: No Immunizations Up To Date Tetanus Booster (TDap): Unknown Date of Pneumonia Vaccine: Oct 22, 2008 Date of Influenza Vaccine: Jun 24, 2018 Past Medical History Bipolar OCD Asthma Family Medical History Family History: Cancer 03 FATHER (PANCREATITC) Family history: Cardiovascular disease 03 FATHER ([place]) Review of Systems (CHC) Constitutional: malaise Respiratory: cough, short of breath Gastrointestinal: LUQ Reviewed Test Results Reviewed Test Results Lab Laboratory Tests 11/21/18 12:35 Vital Signs 11/21/18 11/22/18 11/22/18 16:09 08:00 11:06 Temp 96.1 Pulse 105 Resp 18 B/P (MAP) 135/69 (91) Pulse Ox 92 O2 Delivery Nasal Cannula O2 Flow Rate 6.00 FiO2 36 Physical Exam-(CHC) Physical Exam Vital Signs VS - Last 72 Hours, by Label 11/21/18 11/21/18 11/21/18 11/21/18 12:22 12:31 13:03 13:53 Pulse 131 111 Resp 24 15 B/P (MAP) 166/90 (115) 156/77 (103) Pulse Ox 94 90 94 94 O2 Delivery Nasal Cannula Nasal Cannula Nasal Cannula Nasal Cannula O2 Flow Rate 4.00 3.00 6.00 6.00 11/21/18 11/21/18 11/21/18 11/21/18 14:40 15:00 16:09 16:27 Temp 96.9 Pulse 117 131 Resp 12 B/P (MAP) 156/77 Pulse Ox 94 94 94 O2 Delivery Nasal Cannula Nasal Cannula Nasal Cannula O2 Flow Rate 6.00 4.00 6.00 6.00 FiO2 36 11/21/18 11/21/18 11/21/18 11/21/18 16:30 18:30 20:00 20:30 Temp 97.8 97.8 97.0 Pulse 116 119 125 Resp 20 24 24 B/P (MAP) 125/65 (85) 132/60 (84) 114/79 (91) Pulse Ox 93 93 93 95 O2 Delivery Nasal Cannula Nasal Cannula Nasal Cannula Nasal Cannula O2 Flow Rate 6.00 6.00 6.00 6.00 11/22/18 11/22/18 11/22/18 11/22/18 00:00 02:26 04:00 06:36 Temp 97.3 97.1 Pulse 116 110 Resp 20 18 B/P (MAP) 135/60 (85) 142/77 (98) Pulse Ox 90 92 93 91 O2 Delivery Nasal Cannula NIV CPAP Nasal Cannula NIV CPAP O2 Flow Rate 6.00 6.00 6.00 6.00 11/22/18 11/22/18 11/22/18 07:30 08:00 11:06 Temp 96.1 Pulse 105 Resp 18 B/P (MAP) 135/69 (91) Pulse Ox 92 92 92 O2 Delivery Nasal Cannula Nasal Cannula O2 Flow Rate 6.00 6.00 6.00 Capillary Refill : Less Than 3 Seconds General Appearance: WD/WN, mild distress, obese Neck: non-tender, full range of motion, supple Respiratory: wheezing Cardiovascular: regular rate, rhythm, no edema, no gallop, no murmur Gastrointestinal: normal bowel sounds, non tender, soft Skin: normal color, warm/dry Assessment/Plan Assessment/Plan Assessment & Plan Assessment: 1) Influenza 2) Acute asthma exacerbation 3) Obesity Plan: 1) Tamiflu treatment 2) Steroid treatment 3) Nebulizer 4) Continue to monitor Clinical Quality Measures DVT/VTE Risk/Contraindication: Risk Factor Score Per Nursin RFS Level Per Nursing on Admit: 2=Moderate PHILIP PADILLA MD 11/22/18 1727: HPI History of Present Illness: Date seen by provider: Nov 22, 2018 Time Seen by Provider: 10:58 Home Medications Allergies Coded Allergies: morphine (Verified Allergy, Mild, 10/05/18) itch GOF-Vmrklr-Upjhfj Hx Family Medical History Family History: Cancer 03 FATHER (PANCREATITC) Family history: Cardiovascular disease 03 FATHER ([place]) Reviewed Test Results Reviewed Test Results Radiology CXR 11/22 unremarkable Assessment/Plan Assessment/Plan Admission Status: Inpatient Order (span 2 midnights) Reason for Inpatient Admission: Severe asthma exacerbation with influenza, high risk for respiratory failure. (1) Influenza A Status: Acute Assessment & Plan: Oseltamavir. Cough is markedly painful and tesalon not helping much, add promethazine/codeine (2) Acute asthma exacerbation Status: Acute Assessment & Plan: Solumedrol IV q8, Pulmonology consulted, appreciate recommendations. Breathing treatments- beta agonist short and long acting as well as anticholinergic and steroid all ordered. 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 Qualifiers: Qualified Codes: D50.8 - Other iron deficiency anemias (4) DVT prophylaxis Status: Acute Assessment & Plan: Enoxaparin Supervisory-Addendum Brief Supervisory Addendum Patient seen and examined by me along with MS3 Alexsander Stokes, agree with documentation unless otherwise noted. See problem list for my assessment and plan. ALEXSANDER STOKES MED STUDENT Nov 22, 2018 12:24 PHILIP PADILLA MD Nov 22, 2018 17:27
--- NOTE | 2018-11-22 12:59 | Pulmonary Consultation ---
History of Present Illness History of Present Illness Date of Consultation 11/22/18 12:53 Time Seen by Provider: 09:30 Date of Admission History of Present Illness 48yo with hx of morbid obesity, and asthma presented to ED secondary to worsening SOB, and hypoxia that started about 1 wk ago. Pt was given a prednisone taper 2days prior to admission in the ED. She was found to have influ A in the ED and was admitted to 4th floor. Allergies and Home Medications Allergies Coded Allergies: morphine (Verified Allergy, Mild, 10/05/18) itch Home Medications Albuterol Sulfate 18 Gm Hfa.aer.ad, 2 PUFF IH Q4H PRN for SHORTNESS OF BREATH, ( Reported) Benzonatate 100 Mg Capsule, 100 MG PO TID PRN for COUGH, (Reported) Budesonide/Formoterol Fumarate 10.2 Gm Hfa.aer.ad, 2 PUFF IH BID, (Reported) Bupropion HCl 150 Mg Tablet.er, 300 MG PO DAILY, (Reported) Bupropion HCl 150 Mg Tablet.er, 150 MG PO HS, (Reported) Duloxetine HCl 30 Mg Capsule.dr, 90 MG PO DAILY, (Reported) Ipratropium/Albuterol Sulfate 3 Ml Ampul.neb, 3 ML IH Q4H PRN for SHORTNESS OF BREATH, (Reported) Lorazepam 1 Mg Tablet, 1 MG PO BID PRN for ANXIETY, (Reported) Meloxicam 15 Mg Tablet, 7.5 MG PO DAILY, (Reported) Prednisone 20 Mg Tab, 60 MG PO DAILY Take 3 tablets daily x 3 days. Take 2 tablets daily x 3 days. Take 1 tablet daily x 3 days. Prescribed by: VALENTÍN NAVA on 11/19/182348 Tramadol HCl 50 Mg Tablet, 50 MG PO Q6H PRN for PAIN Prescribed by: VALENTÍN NAVA on 11/19/182348 Zolpidem Tartrate 10 Mg Tablet, 10 MG PO HS, (Reported) Past Nlbradq-Nakjxi-Nffjqx Hx Patient Social History Alcohol Use: Occasionally Uses Recreational Drug Use: No Smoking Status: Former Smoker Type Used: Cigarettes Former Smoker, Quit: Jul 27, 2013 Recent Foreign Travel: No Contact w/Someone Who Travel: No Recent Infectious Disease Expo: No Recent Hopitalizations: No Immunizations Up To Date Tetanus Booster (TDap): Unknown PED Vaccines UTD: Yes Date of Pneumonia Vaccine: Oct 22, 2008 Date of Influenza Vaccine: Jun 24, 2018 Seasonal Allergies Seasonal Allergies: No Past Medical History Surgeries: Yes (GASTRIC BYPASS - 2001) Abdominal Respiratory: Yes Asthma Currently Using BIPAP: Yes Cardiac: No Neurological: No : No Reproductive Disorders: No Sexually Transmitted Disease: No HIV/AIDS: No Bladder Infection Gastroesophageal Reflux, Chronic Constipation Musculoskeletal: No Chronic Back Pain Endocrine: No Cancer: No Psychosocial: No Sleep Difficulties, Anxiety, ODD, Depression Integumentary: Yes Blood Disorders: Yes (ANEMIA) Adverse Reaction/Blood Tranf: No Family Medical History Cancer 03 FATHER (PANCREATITC) Family history: Cardiovascular disease 03 FATHER (DC) Review of Systems Time Seen by Provider: 13:00 Constitutional: Fever, Chills, Sweats, Weakness, Malaise, Other Eyes: No: Pain, Vision change, Conjunctivae inflammation, Eyelid inflammation, Other, Redness ENT: Nose discharge, Nose congestion; No: Ear pain, Ear discharge, Nose pain, Mouth pain, Mouth swelling, Throat pain, Throat swelling, Other Respiratory: Cough, Dry, Shortness of breath, SOB with excertion, Wheezing; No : Hemoptysis, Pleuritic Pain, Sputum Cardiovascular: Palpitations, Orthopnea, Paroxysmal Noc. Dyspnea Gastrointestinal: Nausea; No: Vomiting, Abdominal Pain, Diarrhea, Constipation Genitourinary: No Dysuria, No Frequency, No Incontinence, No Hematuria, No Retention, No Other Skin: No: Rash, Lesions, Jaundice, Bruising Sepsis Event Evaluation Height, Weight, BMI Height: 5'4.00" Weight: 333lbs. 3.0oz. 151.522258qz; 56.7 BMI Method:Estimated Exam Exam Vital Signs Date Time Temp Pulse Resp B/P (MAP) Pulse Ox O2 Delivery O2 Flow Rate FiO2 11/22/18 11:06 92 Nasal Cannula 6.00 11/22/18 08:00 96.1 105 18 135/69 (91) 92 Nasal Cannula 6.00 11/22/18 07:30 92 6.00 11/22/18 06:36 91 NIV CPAP 6.00 11/22/18 04:00 97.1 110 18 142/77 (98) 93 Nasal Cannula 6.00 11/22/18 02:26 92 NIV CPAP 6.00 11/22/18 00:00 97.3 116 20 135/60 (85) 90 Nasal Cannula 6.00 11/21/18 20:30 97.0 125 24 114/79 (91) 95 Nasal Cannula 6.00 11/21/18 20:00 93 Nasal Cannula 6.00 11/21/18 18:30 97.8 119 24 132/60 (84) 93 Nasal Cannula 6.00 11/21/18 16:30 97.8 116 20 125/65 (85) 93 Nasal Cannula 6.00 11/21/18 16:27 94 Nasal Cannula 6.00 11/21/18 16:09 131 94 36 11/21/18 15:00 Nasal Cannula 4.00 11/21/18 14:40 96.9 117 12 156/77 94 Nasal Cannula 6.00 6.00 11/21/18 13:53 111 15 156/77 (103) 94 Nasal Cannula 6.00 11/21/18 13:03 94 Nasal Cannula 6.00 I & O 11/22/18 07:00 Intake Total 2660 ml Balance 2660 ml Height & Weight Height: 5'4.00" Weight: 333lbs. 3.0oz. 151.390902os; 56.7 BMI Method:Estimated General Appearance: WD/WN, Mild Distress, Obese HEENT: PERRL/EOMI, TMs Normal Respiratory: Decreased Breath Sounds, Respiratory Distress, Wheezing Cardiovascular: Normal Peripheral Pulses, Tachycardia Capillary Refill: Less Than 3 Seconds Gastrointestinal: normal bowel sounds, non tender, soft Neurologic/Psychiatric: Alert, Oriented x3 Skin: Normal Color, Warm/Dry Results Lab Laboratory Tests 11/21/18 12:35 Assessment/Plan Assessment/Plan Asthma AE -SVNS -Decrease Solumedrol to 40 Q 6 -Increase IVF to 75cc/hr Metabolic acidosis -Monitor -IVF Sinus tach -IVF -Monitor Morbid obesity Anemia -Monitor SVETLANA hx KRISTIE MARCH DO Nov 22, 2018 12:59
[2018-11-22] MEDS: PROMETHAZINE/ CODEINE SYRUP 5 ML UDC PO PRN ×3 (13:39→22:06)
[2018-11-22] MEDS: methylPREDNISolone 40 MG/ML (Solu-MEDROL) VIAL IV SCH (17:32)
[2018-11-22] MEDS: ZOLPIDEM 5 MG (AMBIEN) TAB PO SCH (21:17)
[2018-11-23] MEDS: LORazepam 1 MG (ATIVAN) TAB PO PRN (00:04)
[2018-11-23] MEDS: ACETAMINOPHEN 325 MG TABLET PO PRN (00:04)
[2018-11-23] MEDS: methylPREDNISolone 40 MG/ML (Solu-MEDROL) VIAL IV SCH ×5 (00:04→23:27)
[2018-11-23] MEDS: RT-ALBUTEROL/IPRATROPIUM 3 ML (DUONEB) VIAL INH SCH ×6 (02:15→21:32)
[2018-11-23 03:20] VITALS: BP 141/63
--- NOTE | 2018-11-23 05:40 | NUR ---
THIS RN CALLED DR. PITTS IN REGARDS TO THE PT COMPLAINING OF LOWER LEFT QUADRANT PAIN RATED AT A 10 ON A NUMERIC SCALE. ORDERS RECEIVED FOR TORADOL 30 MG IV Q6H PRN PAIN. ORDERS READ BACK AND VERIFIED.
[2018-11-23 06:06] LABS: HEMOGLOBIN 8.6 G/DL (11.5-16.0); MEAN PLATELET VOLUME 11.4 FL (7.4-10.4); RED CELL DISTRIBUTION WIDTH 20.2 % (10.0-14.5); WHITE BLOOD COUNT 14.4 10^3/uL (4.3-11.0)
[2018-11-23] MEDS: KETOROLAC 30 MG/ML VIAL IVP PRN (06:11)
[2018-11-23 06:26] LABS: BUN/CREATININE RATIO 21; CALCIUM 9.4 MG/DL (8.5-10.1); CARBON DIOXIDE 22 MMOL/L (21-32); CHLORIDE 105 MMOL/L (98-107); CREATININE SERUM 0.85 MG/DL (0.60-1.30); GFR ESTIMATED > 60; GLUCOSE 135 MG/DL (70-105); POTASSIUM 4.6 MMOL/L (3.6-5.0); SODIUM 139 MMOL/L (135-145)
[2018-11-23 08:00] VITALS: BP 182/88
--- NOTE | 2018-11-23 08:08 | Pulmonary Progress Note ---
Subjective Time Seen by a Provider: 08:04 Subjective/Events-last exam Pt complains of severe abdominal. Sepsis Event Evaluation Height, Weight, BMI Height: 5'4.00" Weight: 326lbs. 9.0oz. 148.706172bo; 56.7 BMI Method:Estimated Exam Exam Vital Signs Date Time Temp Pulse Resp B/P (MAP) Pulse Ox O2 Delivery O2 Flow Rate FiO2 11/23/18 03:20 96.5 99 24 141/63 (89) 95 Nasal Cannula 4.00 11/23/18 02:22 100 NIV CPAP 6.00 11/22/18 23:30 97.8 110 26 139/88 (105) 92 Nasal Cannula 4.00 11/22/18 21:58 94 Nasal Cannula 6.00 11/22/18 20:00 4.00 11/22/18 20:00 97.4 116 22 141/70 (93) 93 Nasal Cannula 4.00 11/22/18 19:23 94 Nasal Cannula 6.00 11/22/18 16:25 97.9 129 22 137/66 (89) 94 Nasal Cannula 4.00 11/22/18 14:31 94 Nasal Cannula 6.00 11/22/18 13:00 94 Nasal Cannula 4.00 11/22/18 12:25 97.9 118 24 126/60 (82) 92 Nasal Cannula 4.00 11/22/18 11:06 92 Nasal Cannula 6.00 I & O 11/23/18 07:00 Intake Total 2810 ml Balance 2810 ml Height & Weight Height: 5'4.00" Weight: 326lbs. 9.0oz. 148.847382ad; 56.7 BMI Method:Estimated General Appearance: WD/WN, Mild Distress, Obese HEENT: PERRL/EOMI, TMs Normal Respiratory: Decreased Breath Sounds, Respiratory Distress, Wheezing Cardiovascular: Normal Peripheral Pulses, Tachycardia Capillary Refill: Less Than 3 Seconds Gastrointestinal: soft; No distended, No guarding, No rebound; tenderness Neurologic/Psychiatric: Alert, Oriented x3 Skin: Normal Color, Warm/Dry Results Lab Laboratory Tests 11/21/18 12:35 11/23/18 05:20 Assessment/Plan Assessment/Plan Asthma AE -SVNS -Solumedrol to 40 Q 6 -Increase IVF to 75cc/hr Abdominal pain -Check Abd flat and upright film -RN has already notified Dr. Padilla -No apparent peritoneal signs. -Toradol Leukocytosis - probably from steroids. Sinus tach -IVF -Monitor Morbid obesity Anemia -Monitor SVETLANA hx KRISTIE MARCH DO Nov 23, 2018 08:07
[2018-11-23] MEDS: RT-ADVAIR HFA 115/21 MCG PER PUFF IH SCH ×2 (08:19→21:32)
[2018-11-23] MEDS: DULoxetine 30 MG (CYMBALTA) CAP PO SCH (09:14)
[2018-11-23] MEDS: buPROPion SR 150 MG (WELLBUTRIN SR) TAB PO SCH ×2 (09:14→21:40)
[2018-11-23] MEDS: MELOXICAM 7.5 MG (MOBIC) TABLET PO SCH (09:14)
[2018-11-23] MEDS: OSELTAMIVIR 75 MG (TAMIFLU) CAPSULE PO SCH ×2 (09:14→21:40)
[2018-11-23] MEDS: ENOXAPARIN 60 MG/0.6 ML (LOVENOX) SYR SC SCH ×2 (09:14→21:41)
[2018-11-23] MEDS: fentaNYL INJECTION 100 MCG/2 ML AMP IVP PRN ×3 (10:01→23:20)
--- NOTE | 2018-11-23 11:53 | Progress Note (SOAP) ---
Subjective Subjective/Events-last exam Afebrile, breathing improved some, but started to have severe LLQ pain early in the morning. No nausea, vomiting. Is passing gas. APAP and toradol have not helped. Hurts enough to make her yell when she coughs. Review of Systems Date Seen by Provider: Nov 23, 2018 Time Seen by Provider: 08:35 Objective Exam Last Set of Vital Signs Vital Signs Date Time Temp Pulse Resp B/P (MAP) Pulse Ox O2 Delivery O2 Flow Rate FiO2 11/23/18 08:18 97 Nasal Cannula 4.00 11/23/18 08:00 99.0 103 22 182/88 (119) 11/21/18 16:09 36 Capillary Refill : Less Than 3 Seconds I&O Intake and Output 11/23/18 00:00 Intake Total 3810 ml Balance 3810 ml Intake Oral 3810 ml # Voids 19 General: Alert, Mild Distress, Moderate Distress (secondary to pain) Lungs: Clear to Auscultation, Normal Air Movement Heart: No Murmurs, Other (tachycardic) Abdomen: Normal Bowel Sounds, Other (marked lower abdomen ttp and mild to moderate midline distension) Neuro: Normal Speech Psych/Mental Status: Mental Status NL Results/Procedures Lab Laboratory Tests 11/23/18 05:20: White Blood Count 14.4H, Red Blood Count 4.38, Hemoglobin 8.6L, Hematocrit 30L, Mean Corpuscular Volume 69L, Mean Corpuscular Hemoglobin 20L, Mean Corpuscular Hemoglobin Concent 29L, Red Cell Distribution Width 20.2H, Platelet Count 393, Mean Platelet Volume 11.4H, Sodium Level 139, Potassium Level 4.6, Chloride Level 105, Carbon Dioxide Level 22, Anion Gap 12, Blood Urea Nitrogen 18, Creatinine 0.85, Estimat Glomerular Filtration Rate > 60, BUN/Creatinine Ratio 21, Glucose Level 135H, Calcium Level 9.4 Microbiology 11/21/18 Influenza Types A,B Antigen (MAIRA) - Final, Complete Radiology CXR 11/22 unremarkable Assessment/Plan Assessment/Plan Assessment & Plan (1) Influenza A Status: Acute Assessment & Plan: Oseltamavir. Cough is markedly painful and tesalon not helping much, add promethazine/codeine (2) Acute asthma exacerbation Status: Acute Assessment & Plan: Solumedrol 125 mg IV q8, Pulmonology consulted, appreciate recommendations. Breathing treatments- beta agonist short and long acting as well as anticholinergic and steroid all ordered. 11/23 decreased solumedrol to 40 mg IV q6 Qualifiers: Qualified Codes: J45.901 - Unspecified asthma with (acute) exacerbation (3) Anemia Onset Date: 11/02/2013 Status: Chronic Assessment & Plan: Thought to be related to gastric bypass history, stable. Qualifiers: Qualified Codes: D50.8 - Other iron deficiency anemias (4) Abdominal pain Status: Acute Assessment & Plan: Obtaining KUB, try fentanyl for pain, consider CT if persistent and KUB unrevealing. Suspect musculoskeletal related to coughing but given severity will work-up. Qualifiers: Qualified Codes: R10.32 - Left lower quadrant pain (5) DVT prophylaxis Status: Acute Assessment & Plan: Enoxaparin Clinical Quality Measures DVT/VTE Risk/Contraindication: Risk Factor Score Per Nursin RFS Level Per Nursing on Admit: 2=Moderate PHILIP PITTS MD Nov 23, 2018 11:53
[2018-11-23 12:00] VITALS: BP 156/82
--- NOTE | 2018-11-23 12:13 | Diagnostic Imaging Report ---
INDICATION: Pain in left lower quadrant. 11:43 hours a.m. There is prominent stool throughout the colon. There is no overt obstruction or ileus. There are surgical clips in the upper quadrants on both sides. Bony structures appear unremarkable. IMPRESSION: Prominent stool throughout the colon with no overt obstruction or ileus. Dictated by: Dictated on workstation # [id number]
[2018-11-23 16:55] VITALS: BP 159/91
[2018-11-23] MEDS: POLYETHYLENE GLYCOL 17 GM (MIRALAX) PACK PO PRN ×2 (17:55→21:46)
[2018-11-23 20:11] VITALS: BP 163/83
[2018-11-23] MEDS: ZOLPIDEM 5 MG (AMBIEN) TAB PO SCH (21:40)
[2018-11-23 23:20] VITALS: BP 136/96
[2018-11-24] VITALS (8 sets, daily range): BP systolic 132–148; BP diastolic 70–83
[2018-11-24] MEDS: RT-ALBUTEROL/IPRATROPIUM 3 ML (DUONEB) VIAL INH SCH ×4 (01:28→20:30)
[2018-11-24 04:43] LABS: MEAN PLATELET VOLUME 10.8 FL (7.4-10.4); RED CELL DISTRIBUTION WIDTH 19.2 % (10.0-14.5); WHITE BLOOD COUNT 11.4 10^3/uL (4.3-11.0)
[2018-11-24 05:23] LABS: ALANINE AMINOTRANSFERASE 20 U/L (0-55); ALBUMIN 3.6 GM/DL (3.2-4.5); ALKALINE PHOSPHATASE 65 U/L (40-136); BILIRUBIN,TOTAL 0.2 MG/DL (0.1-1.0); BUN/CREATININE RATIO 27; CALCIUM 8.6 MG/DL (8.5-10.1); CARBON DIOXIDE 25 MMOL/L (21-32); CHLORIDE 104 MMOL/L (98-107); CREATININE SERUM 0.85 MG/DL (0.60-1.30); GFR ESTIMATED > 60; GLUCOSE 182 MG/DL (70-105); POTASSIUM 4.1 MMOL/L (3.6-5.0); SODIUM 138 MMOL/L (135-145); TOTAL PROTEIN 5.8 GM/DL (6.4-8.2)
[2018-11-24] MEDS: methylPREDNISolone 40 MG/ML (Solu-MEDROL) VIAL IV SCH (05:32)
[2018-11-24] MEDS: fentaNYL INJECTION 100 MCG/2 ML AMP IVP PRN ×2 (05:37→16:20)
[2018-11-24 05:58] LABS: HEMOGLOBIN 6.8 G/DL (11.5-16.0)
--- NOTE | 2018-11-24 06:00 | NUR ---
THIS RN CALLED DR. PITTS IN REGARDS TO THE PT HAVING A CRITICAL HEMOGLOBIN OF 6.8. ORDERS RECEIVED TO TRANSFUSE 1 UNIT OF PACKED RED BLOOD CELLS. ORDERS READ BACK AND VERIFIED.
[2018-11-24] MEDS: POLYETHYLENE GLYCOL 17 GM (MIRALAX) PACK PO PRN ×2 (06:21→09:00)
[2018-11-24] MEDS: RT-ADVAIR HFA 115/21 MCG PER PUFF IH SCH ×2 (07:39→20:29)
--- NOTE | 2018-11-24 09:03 | Pulmonary Progress Note ---
Sepsis Event Evaluation Height, Weight, BMI Height: 5'4.00" Weight: 331lbs. 2.0oz. 150.160078rf; 56.7 BMI Method:Estimated Exam Exam Vital Signs Date Time Temp Pulse Resp B/P (MAP) Pulse Ox O2 Delivery O2 Flow Rate FiO2 11/24/18 07:09 85 96 24 11/24/18 07:08 96 Nasal Cannula 2.00 11/24/18 04:05 96.5 89 20 143/79 (100) 97 NIV CPAP 11/24/18 01:28 90 Room Air 11/23/18 23:20 96.2 95 22 136/96 (109) 94 Room Air 11/23/18 21:32 98 Nasal Cannula 4.00 11/23/18 20:11 96.3 104 21 163/83 (109) 95 Room Air 11/23/18 20:00 4.00 11/23/18 17:20 97.4 11/23/18 16:55 109 21 159/91 (113) 94 Nasal Cannula 4.00 11/23/18 14:31 97 Nasal Cannula 4.00 11/23/18 12:00 97.4 124 22 156/82 (106) 92 Nasal Cannula 4.00 11/23/18 09:45 99.0 I & O 11/24/18 07:00 Intake Total 1800 ml Balance 1800 ml Height & Weight Height: 5'4.00" Weight: 331lbs. 2.0oz. 150.058327ua; 56.7 BMI Method:Estimated General Appearance: WD/WN, Mild Distress, Obese HEENT: PERRL/EOMI, TMs Normal Respiratory: Decreased Breath Sounds, Respiratory Distress, Wheezing Cardiovascular: Normal Peripheral Pulses, Tachycardia Capillary Refill: Less Than 3 Seconds Gastrointestinal: soft; No distended, No guarding, No rebound; tenderness Neurologic/Psychiatric: Alert, Oriented x3 Skin: Normal Color, Warm/Dry Results Lab Laboratory Tests 11/23/18 05:20 11/24/18 04:33 Assessment/Plan Assessment/Plan Asthma AE -SVNS -PRednisone taper Abdominal pain -No apparent peritoneal signs. -Toradol Leukocytosis - probably from steroids. Sinus tach -IVF -Monitor Morbid obesity Anemia -Monitor -Dr. Padilla is managing SVETLANA hx KRISTIE MARCH DO Nov 24, 2018 09:03
[2018-11-24] MEDS: DULoxetine 30 MG (CYMBALTA) CAP PO SCH (09:42)
[2018-11-24] MEDS: buPROPion SR 150 MG (WELLBUTRIN SR) TAB PO SCH ×2 (09:43→21:57)
[2018-11-24] MEDS: MELOXICAM 7.5 MG (MOBIC) TABLET PO SCH (09:43)
[2018-11-24] MEDS: predniSONE 10 MG TAB PO SCH (09:43)
[2018-11-24] MEDS: ENOXAPARIN 60 MG/0.6 ML (LOVENOX) SYR SC SCH ×4 (09:44→21:58)
[2018-11-24] MEDS: OSELTAMIVIR 75 MG (TAMIFLU) CAPSULE PO SCH ×2 (09:45→22:08)
[2018-11-24] MEDS: POLYETHYLENE GLYCOL 17 GM (MIRALAX) PACK PO SCH (09:45)
[2018-11-24] MEDS: BENZONATATE 100 MG (TESSALON) CAPSULE PO PRN (09:46)
[2018-11-24] MEDS: KETOROLAC 30 MG/ML VIAL IVP PRN (09:47)
[2018-11-24] MEDS ORDERED: NS IV 500 ML 500 ML ONE (09:57)
[2018-11-24] MEDS ORDERED: BISACODYL 5 MG (DULCOLAX) TABLET PO PRN (12:30)
[2018-11-24] MEDS ORDERED: MAGNESIUM CITRATE 300 ML BTL PO NR (13:30)
--- NOTE | 2018-11-24 14:52 | Progress Note (SOAP) ---
Subjective Subjective/Events-last exam Afebrile, breathing easier, but continues with abdominal pain and has not been able to have a bowel movement. Hemoglobin below 7 today. Review of Systems Date Seen by Provider: Nov 24, 2018 Time Seen by Provider: 11:55 Objective Exam Last Set of Vital Signs Vital Signs Date Time Temp Pulse Resp B/P (MAP) Pulse Ox O2 Delivery O2 Flow Rate FiO2 11/24/18 13:51 98.6 87 141/83 Nasal Cannula 2.00 11/24/18 12:00 20 95 11/24/18 10:48 93 Capillary Refill : Less Than 3 Seconds I&O Intake and Output 11/24/18 00:00 Intake Total 1500 ml Balance 1500 ml Intake Oral 1500 ml # Voids 13 General: Alert, Mild Distress Lungs: Clear to Auscultation, Normal Air Movement Heart: Regular Rate, No Murmurs Neuro: Normal Speech Psych/Mental Status: Mental Status NL Results/Procedures Lab Laboratory Tests 11/24/18 04:33: White Blood Count 11.4H, Red Blood Count 3.47L, Hemoglobin 6.8#*L, Hematocrit 24L, Mean Corpuscular Volume 70L, Mean Corpuscular Hemoglobin 20L, Mean Corpuscular Hemoglobin Concent 28L, Red Cell Distribution Width 19.2H, Platelet Count 271, Mean Platelet Volume 10.8H, Sodium Level 138, Potassium Level 4.1, Chloride Level 104, Carbon Dioxide Level 25, Anion Gap 9, Blood Urea Nitrogen 23H, Creatinine 0.85, Estimat Glomerular Filtration Rate > 60, BUN/Creatinine Ratio 27, Glucose Level 182H, Calcium Level 8.6, Corrected Calcium 8.9, Total Bilirubin 0.2, Aspartate Amino Transf (AST/SGOT) 22, Alanine Aminotransferase ( ALT/SGPT) 20, Alkaline Phosphatase 65, Total Protein 5.8L, Albumin 3.6 Microbiology 11/21/18 Influenza Types A,B Antigen (MAIRA) - Final, Complete Radiology CXR 11/22 unremarkable Assessment/Plan Assessment/Plan Assessment & Plan (1) Influenza A Status: Acute Assessment & Plan: Oseltamavir. Cough is markedly painful and tesalon not helping much, add promethazine/codeine (2) Acute asthma exacerbation Status: Acute Assessment & Plan: Solumedrol 125 mg IV q8, Pulmonology consulted, appreciate recommendations. Breathing treatments- beta agonist short and long acting as well as anticholinergic and steroid all ordered. 11/23 decreased solumedrol to 40 mg IV q6 3 changed to prednisone taper, down to 2 lpm supplemental O2 Qualifiers: Qualified Codes: J45.901 - Unspecified asthma with (acute) exacerbation (3) Anemia Onset Date: 11/02/2013 Status: Chronic Assessment & Plan: Thought to be related to gastric bypass history, chronic. 11/24 below 7, will transfuse and recheck Qualifiers: Qualified Codes: D50.8 - Other iron deficiency anemias (4) Abdominal pain Status: Acute Assessment & Plan: Obtaining KUB, try fentanyl for pain, consider CT if persistent and KUB unrevealing. Suspect musculoskeletal related to coughing but given severity will work-up. / KUB showed stool only, will decrease pain medication, encourage ambulation, try miralax, dulcolax and magnesium citrate. Qualifiers: Qualified Codes: R10.32 - Left lower quadrant pain (5) DVT prophylaxis Status: Acute Assessment & Plan: Enoxaparin Clinical Quality Measures DVT/VTE Risk/Contraindication: Risk Factor Score Per Nursin RFS Level Per Nursing on Admit: 2=Moderate PHILIP PITTS MD Nov 24, 2018 14:52
[2018-11-24 17:51] LABS: HEMOGLOBIN 7.6 G/DL (11.5-16.0)
[2018-11-24] MEDS ORDERED: BISACODYL 10 MG SUPP (DULCOLAX) ONE (17:54)
[2018-11-24] MEDS ORDERED: BISACODYL 10 MG SUPP (DULCOLAX) PR ONE (21:00)
[2018-11-24] MEDS: ZOLPIDEM 5 MG (AMBIEN) TAB PO SCH (21:57)
[2018-11-25 00:30] VITALS: BP 150/80
[2018-11-25] MEDS: LORazepam 1 MG (ATIVAN) TAB PO PRN (00:59)
[2018-11-25] MEDS: fentaNYL INJECTION 100 MCG/2 ML AMP IVP PRN (01:00)
[2018-11-25] MEDS: BENZONATATE 100 MG (TESSALON) CAPSULE PO PRN ×2 (02:36→08:12)
[2018-11-25] MEDS: RT-ALBUTEROL/IPRATROPIUM 3 ML (DUONEB) VIAL INH SCH ×2 (03:04→11:00)
[2018-11-25 04:58] VITALS: BP 131/67
[2018-11-25 06:08] LABS: HEMOGLOBIN 7.1 G/DL (11.5-16.0); MEAN PLATELET VOLUME 10.9 FL (7.4-10.4); RED CELL DISTRIBUTION WIDTH 19.6 % (10.0-14.5); WHITE BLOOD COUNT 12.9 10^3/uL (4.3-11.0)
[2018-11-25 06:30] LABS: BUN/CREATININE RATIO 27; CALCIUM 7.9 MG/DL (8.5-10.1); CARBON DIOXIDE 25 MMOL/L (21-32); CHLORIDE 105 MMOL/L (98-107); CREATININE SERUM 0.83 MG/DL (0.60-1.30); GFR ESTIMATED > 60; GLUCOSE 97 MG/DL (70-105); POTASSIUM 3.7 MMOL/L (3.6-5.0); SODIUM 140 MMOL/L (135-145)
[2018-11-25] MEDS: PROMETHAZINE/ CODEINE SYRUP 5 ML UDC PO PRN (06:47)
--- NOTE | 2018-11-25 07:10 | Pulmonary Progress Note ---
Subjective Time Seen by a Provider: 07:25 Subjective/Events-last exam Complains of cough and abdominal pain Sepsis Event Evaluation Height, Weight, BMI Height: 5'4.00" Weight: 323lbs. 2.0oz. 146.784199ll; 56.7 BMI Method:Estimated Exam Exam Vital Signs Date Time Temp Pulse Resp B/P (MAP) Pulse Ox O2 Delivery O2 Flow Rate FiO2 11/25/18 06:58 92 Room Air 11/25/18 04:58 96.8 92 18 131/67 (88) 96 NIV CPAP 2.00 11/25/18 03:05 92 Room Air 2.00 11/25/18 00:30 97.2 63 20 150/80 (103) 95 Nasal Cannula 2.00 11/24/18 20:31 Room Air 11/24/18 20:05 97.0 88 18 148/75 (99) 97 Room Air 11/24/18 20:00 Room Air 11/24/18 16:07 96.8 87 20 143/70 (94) 96 Nasal Cannula 2.00 11/24/18 15:18 96 Nasal Cannula 2.00 11/24/18 13:51 98.6 87 141/83 Nasal Cannula 2.00 11/24/18 12:00 98.6 87 20 141/83 (102) 95 Nasal Cannula 2.00 11/24/18 10:48 96.3 89 20 132/71 Nasal Cannula 2.00 93 11/24/18 10:32 98.0 85 20 139/73 94 2.00 11/24/18 08:00 98.0 85 20 139/73 (95) 94 Nasal Cannula 2.00 11/24/18 08:00 2.00 I & O 11/25/18 07:00 Intake Total 3020 ml Balance 3020 ml Height & Weight Height: 5'4.00" Weight: 323lbs. 2.0oz. 146.232349jt; 56.7 BMI Method:Estimated General Appearance: No Apparent Distress, WD/WN, Obese HEENT: PERRL/EOMI, TMs Normal Respiratory: Decreased Breath Sounds, Respiratory Distress, Wheezing Cardiovascular: Normal Peripheral Pulses, Tachycardia Capillary Refill: Less Than 3 Seconds Gastrointestinal: soft; No distended, No guarding, No rebound; tenderness Neurologic/Psychiatric: Alert, Oriented x3 Skin: Normal Color, Warm/Dry Results Lab Laboratory Tests 3/6/19 04:33 11/24/18 17:43 11/25/18 05:30 Assessment/Plan Assessment/Plan Asthma AE- improving -SVNS -PRednisone taper Leukocytosis - probably from steroids. Morbid obesity Anemia -Monitor -Dr. Padilla is managing SVETLANA hx Pt is ok from pulmonary standpoint for discharge. KRISTIE MARCH DO Nov 25, 2018 07:10
[2018-11-25] MEDS ORDERED: guaiFENesin SYRUP 100 MG/5 ML 10 ML (ROBITUSSIN SF) PO PRN (07:30)
[2018-11-25 08:00] VITALS: BP 132/61
[2018-11-25] MEDS: DULoxetine 30 MG (CYMBALTA) CAP PO SCH (08:10)
[2018-11-25] MEDS: buPROPion SR 150 MG (WELLBUTRIN SR) TAB PO SCH (08:10)
[2018-11-25] MEDS: predniSONE 10 MG TAB PO SCH (08:11)
[2018-11-25] MEDS: OSELTAMIVIR 75 MG (TAMIFLU) CAPSULE PO SCH (08:11)
[2018-11-25] MEDS: MELOXICAM 7.5 MG (MOBIC) TABLET PO SCH (08:11)
[2018-11-25] MEDS: KETOROLAC 30 MG/ML VIAL IVP PRN (08:12)
[2018-11-25] MEDS: POLYETHYLENE GLYCOL 17 GM (MIRALAX) PACK PO SCH (08:12)
[2018-11-25] MEDS: ENOXAPARIN 60 MG/0.6 ML (LOVENOX) SYR SC SCH (08:12)
[2018-11-25] MEDS: POLYETHYLENE GLYCOL 17 GM (MIRALAX) PACK PO PRN (08:13)
[2018-11-25] MEDS ORDERED: BISACODYL 5 MG (DULCOLAX) TABLET PO SCH (09:00)
[2018-11-25] MEDS ORDERED: NS IV 500 ML 500 ML IV SCH (10:59)
[2018-11-25] MEDS ORDERED: diphenhydrAMINE 50 MG/ML INJ (BENADRYL) IV PRN (11:00)
[2018-11-25] MEDS ORDERED: EPINEPHrine INJECTION 1 MG/ML AMP IM PRN (11:00)
[2018-11-25] MEDS ORDERED: RT-ALBUTEROL SULF 2.5 MG/3 ML PRE-MIX VIAL IH PRN (11:00)
[2018-11-25] MEDS ORDERED: IRON DEXTRAN INJECTION 25 MG in NS (IVPB) 5.75 ML IV NR (11:00)
[2018-11-25] MEDS ORDERED: HYDROCORTISONE 100 MG/2 ML (Solu-CORTEF) VIAL IV PRN (11:00)
[2018-11-25] MEDS ORDERED: CODE118S4 PO (11:13)
[2018-11-25] MEDS ORDERED: POLY17PO31 PO (11:13)
[2018-11-25] MEDS ORDERED: PRD10T PO (11:13)
[2018-11-25] MEDS ORDERED: OSLT75C PO (11:13)
[2018-11-25] MEDS ORDERED: IRON DEXTRAN INJECTION 1,000 MG in NS (IVPB) 250 ML IV ONE (11:15)
--- NOTE | 2018-11-25 11:15 | Discharge Instructions ---
Discharge [facility] Discharge Medications New, Converted or Re-Newed RX: RX on Chart (cough syrup on chart, Tamiflu to be sent from hospital, other scripts transmitted electronically) New Medications: Oseltamivir Phosphate (Tamiflu) 75 Mg Cap 75 MG PO BID, #5 CAP 0 Refills Please send remainder of Tamiflu home to finish 5 day course Polyethylene Glycol 3350 (Polyethylene Glycol 3350) 17 Gm Powd.pack 17 GM PO DAILY, #30 PACKET 0 Refills Prednisone (Prednisone) 10 Mg Tab 0 PO UD, #36 TAB 0 Refills Take 6 tabs(60mg)daily for one day, then, decrease by 1 tab(10mg) every other day. Promethazine HCl/Codeine (Promethazine-Codeine Syrup) 118 Ml Syrup 5 ML PO Q4H PRN for COUGH, #100 ML 0 Refills Continued Medications: Albuterol Sulfate (Ventolin Hfa) 18 Gm Hfa.aer.ad 2 PUFF IH Q4H PRN for SHORTNESS OF BREATH, INHALER Benzonatate (Tessalon Perles) 100 Mg Capsule 100 MG PO TID PRN for COUGH, CAP Budesonide/Formoterol Fumarate (Symbicort 160-4.5 Mcg Inhaler) 10.2 Gm Hfa.aer.ad 2 PUFF IH BID, INHALER Bupropion HCl (Wellbutrin Sr) 150 Mg Tablet.er 300 MG PO DAILY for Smoking Cessation, TAB Bupropion HCl (Wellbutrin Sr) 150 Mg Tablet.er 150 MG PO HS for Smoking Cessation, TAB Duloxetine HCl (Cymbalta) 30 Mg Capsule.dr 90 MG PO DAILY, CAP Ipratropium/Albuterol Sulfate (Iprat-Albut 0.5-3(2.5) mg/3 ml) 3 Ml Ampul.neb 3 ML IH Q4H PRN for SHORTNESS OF BREATH, EACH Lorazepam (Lorazepam) 1 Mg Tablet 1 MG PO BID PRN for ANXIETY, TAB Meloxicam (Meloxicam) 15 Mg Tablet 7.5 MG PO DAILY, TAB Tramadol HCl (Tramadol HCl) 50 Mg Tablet 50 MG PO Q6H PRN for PAIN, #12 TAB 0 Refills Zolpidem Tartrate (Zolpidem Tartrate) 10 Mg Tablet 10 MG PO HS, TAB Discontinued Medications: Prednisone (Prednisone) 20 Mg Tab 60 MG PO DAILY for 9 Days, #18 TAB 0 Refills Take 3 tablets daily x 3 days. Take 2 tablets daily x 3 days. Take 1 tablet daily x 3 days. Patient Instructions Goal/Follow Up Appt: Follow up with Dr. Mckeon on 11/29 at 10 am. Return to The Hospital For: Fever, worsening shortness of breath, inability to keep down medications Activity & Diet Discharge Diet: Regular Diet Activity as Tolerated: Yes Copy Copies To 1: BRICE MCKEON MD, BETHANY N MD Nov 25, 2018 11:15
[2018-11-25] MEDS ORDERED: OSELTAMIVIR 75 MG (TAMIFLU) CAPSULE PO SCH (12:45)
[2018-11-25] MEDS: RT-ADVAIR HFA 115/21 MCG PER PUFF IH SCH (13:55)
[2018-11-25 17:30] VITALS: BP 132/61
--- NOTE | 2018-11-25 17:46 | Discharge Summary ---
Diagnosis/Chief Complaint Date of Admission Nov 21, 2018 at 13:30 Date of Discharge Nov 25, 2018 at 17:31 Admission Diagnosis Admission Diagnosis Influenza A Asthma exacerbation Discharge Diagnosis See problem list Problems/Diagnosis: (1) Influenza A Assessment & Plan: Oseltamavir. Cough is markedly painful and tesalon not helping much, added promethazine/codeine Status: Acute (2) Acute asthma exacerbation Assessment & Plan: Solumedrol 125 mg IV q8, Pulmonology consulted, appreciate recommendations. Breathing treatments- beta agonist short and long acting as well as anticholinergic and steroid all ordered. 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 11/24 below 7, will transfuse and recheck 11/25 hemoglobin 7.1, she requested iron infusion due to having trouble with severe constipation, has tolerated IV iron in past, given IV iron infusion before d/c. Qualifiers: Qualified Codes: D50.8 - Other iron deficiency anemias Status: Chronic (4) Abdominal pain Assessment & Plan: Obtaining KUB, try fentanyl for pain, consider CT if persistent and KUB unrevealing. Suspect musculoskeletal related to coughing but given severity will work-up. 11/24 KUB showed stool only, will decrease pain medication, encourage ambulation, try miralax, dulcolax and magnesium citrate. 11/25 had BM but remained constipated, discharged with miralax Qualifiers: Qualified Codes: R10.32 - Left lower quadrant pain Status: Acute Chief Complaint/HPI Chief Complaint/HPI The patient presented to the [facility] ER yesterday for cough and shortness of breath. She had been seen 2 days earlier and was given prednisone. On admission she was found to have O2 sat of 84% and was weezy and tachypneic. She tested positive for influenza A and was admitted for treatment and observation. She is currently resting and appears to be minimally distressed and uncomfortable. She states that she is having a cough that is productive of clear/white fluid. She also reports pain in her LUQ when coughing. The rest of the ROS was unremarkable. Discharge Summary-Simple/Stand Consultations Discharge Physical Examination Allergies: Coded Allergies: morphine (Verified Allergy, Mild, 10/05/18) itch Vitals & I&Os Vital Sign - Last 12Hours Date Time Temp Pulse Resp B/P (MAP) Pulse Ox O2 Delivery O2 Flow Rate FiO2 11/25/18 17:30 91 20 132/61 93 Room Air 2.00 11/25/18 08:00 96.7 11/24/18 10:48 93 Intake and Output 11/24/18 23:59 Intake Total 2470 ml Balance 2470 ml General Appearance: Alert, No Acute Distress Respiratory: Other (end expiratory wheezing) Cardiovascular: Regular Rate, No Murmurs Abdominal: Normal Bowel Sounds, Soft Neuro: Normal Speech Psych/Mental Status: Mental Status NL Hospital Course Was the Problem List Reviewed?: Yes See final discharge diagnosis. Labs Laboratory Tests Test 11/24/18 04:33 11/24/18 17:43 11/25/18 05:30 11/25/18 12:24 Range/Units White Blood Count 11.4 H 12.9 H 4.3-11.0 10^3/uL Red Blood Count 3.47 L 3.50 L 4.35-5.85 10^6/uL Hemoglobin 6.8 #*L 7.6 L 7.1 L 11.5-16.0 G/DL Hematocrit 24 L 26 L 25 L 35-52 % Mean Corpuscular Volume 70 L 70 L 80-99 FL Mean Corpuscular Hemoglobin 20 L 20 L 25-34 PG Mean Corpuscular Hemoglobin Concent 28 L 29 L 32-36 G/DL Red Cell Distribution Width 19.2 H 19.6 H 10.0-14.5 % Platelet Count 271 299 130-400 10^3/uL Mean Platelet Volume 10.8 H 10.9 H 7.4-10.4 FL Sodium Level 138 140 135-145 MMOL/L Potassium Level 4.1 3.7 3.6-5.0 MMOL/L Chloride Level 104 105 98-107 MMOL/L Carbon Dioxide Level 25 25 21-32 MMOL/L Anion Gap 9 10 5-14 MMOL/L Blood Urea Nitrogen 23 H 22 H 7-18 MG/DL Creatinine 0.85 0.83 0.60-1.30 MG/DL Estimat Glomerular Filtration Rate > 60 > 60 BUN/Creatinine Ratio 27 27 Glucose Level 182 H 97 70-105 MG/DL Calcium Level 8.6 7.9 L 8.5-10.1 MG/DL Corrected Calcium 8.9 8.5-10.1 MG/DL Total Bilirubin 0.2 0.1-1.0 MG/DL Aspartate Amino Transf (AST/SGOT) 22 5-34 U/L Alanine Aminotransferase (ALT/SGPT) 20 0-55 U/L Alkaline Phosphatase 65 40-136 U/L Total Protein 5.8 L 6.4-8.2 GM/DL Albumin 3.6 3.2-4.5 GM/DL Lab Scanned Report Transfusion Reaction Form [id number] Radiology Reviewed CXR 3/4 unremarkable Discharge Instructions to patient/family Please see electronic discharge instructions given to patient. Discharge Medications Reviewed and agree with Discharge Medication list on patient's Discharge Instruction sheet Clinical Quality Measures DVT/VTE Risk/Contraindication: Risk Factor Score Per Nursin RFS Level Per Nursing on Admit: 2=Moderate Copy Copies To 1: BRICE RAMIREZ MD, BETHANY N MD Nov 25, 2018 17:46
== END 2018-11-25 17:31 | disposition home or self-care (01) | DRG 202 ==
LOC: EDUNIT# 12:16 → ER 12:17 → 4TH 13:30
PROVIDERS: ADMIT Internal Medicine; ATTEND Family Medicine
DX: J45.901 Unspecified asthma with (acute) exacerbation (principal); J10.1 Influenza due to other identified influenza virus with other respiratory manifestations; R09.02 Hypoxemia; R05 Cough; E87.2 Acidosis; Z68.43 Body mass index [BMI] 50.0-59.9, adult; E66.01 Morbid (severe) obesity due to excess calories; G47.33 Obstructive sleep apnea (adult) (pediatric); D50.8 Other iron deficiency anemias; K21.9 Gastro-esophageal reflux disease without esophagitis; K59.09 Other constipation; M54.9 Dorsalgia, unspecified; F41.9 Anxiety disorder, unspecified; F31.9 Bipolar disorder, unspecified; F42.9 Obsessive-compulsive disorder, unspecified; Z87.891 Personal history of nicotine dependence; Z98.84 Bariatric surgery status; R00.0 Tachycardia, unspecified
CPT/HCPCS: 36415; 36600; 71045; 74019; 80048; 80053; 82805; 83735; 85007; 85014; 85018; 85027; 85379; 86850; 86870; 86900; 86901; 86902; 86922; 87804; 90471; 94150; 94640; 94760; 96374; 96375

== ENCOUNTER 2019-09-05 09:09 | Inpatient (IN) | payer SELFPAY ==
[~2019-09-05] VITALS: Ht 162.6 cm; Wt 141.8 kg
[~2019-09-05 09:09] MED LIST changes: +CODE118S4 PO; +OSLT75C PO; +POLY17PO31 PO
--- NOTE | 2019-09-05 09:20 | NUR ---
3L via oxy mask.
[2019-09-05] MEDS ORDERED: RT-ALBUTEROL/IPRATROPIUM 3 ML (DUONEB) VIAL INH ONE (09:30)
[2019-09-05] MEDS ORDERED: RT-ALBUTEROL SULF 2.5 MG/3 ML PRE-MIX VIAL INH STA ×3 (09:52→11:28)
[2019-09-05] MEDS ORDERED: methylPREDNISolone 125 MG (Solu-MEDROL) VIAL IV STA (10:08)
[2019-09-05] MEDS ORDERED: LACTATED RINGERS 1,000 ML IV STA (10:08)
[2019-09-05 10:32] LABS: BASOPHILS % (AUTO) 0 % (0-10); EOSINOPHILS # (AUTO) 0.5 10^3/uL (0.0-0.3); EOSINOPHILS % (AUTO) 4 % (0-10); HEMATOCRIT 40 % (35-52); HEMOGLOBIN 12.8 G/DL (11.5-16.0); LYMPHOCYTES # (AUTO) 1.3 X 10^3 (1.0-4.0); LYMPHOCYTES % (AUTO) 9 % (12-44); MEAN CORPUSCULAR HEMOGLOBIN 27 PG (25-34); MEAN CORPUSCULAR HGB CONC 32 G/DL (32-36); MEAN CORPUSCULAR VOLUME 82 FL (80-99); MEAN PLATELET VOLUME 10.8 FL (7.4-10.4); MONOCYTES # (AUTO) 0.9 X 10^3 (0.0-1.0); MONOCYTES % (AUTO) 6 % (0-12); NEUTROPHILS # (AUTO) 11.7 X 10^3 (1.8-7.8); NEUTROPHILS % (AUTO) 81 % (42-75); PLATELET COUNT 253 10^3/uL (130-400); RED CELL DISTRIBUTION WIDTH 16.5 % (10.0-14.5); WHITE BLOOD COUNT 14.4 10^3/uL (4.3-11.0)
--- NOTE | 2019-09-05 10:36 | Diagnostic Imaging Report ---
INDICATION: Cough and congestion. COMPARISON: 11/21/2018 FINDINGS: 2 frontal radiograph views of the chest were obtained and demonstrate normal heart size and pulmonary vascularity. The lungs are well aerated and clear. No large pleural effusion or pneumothorax is seen. The visualized osseous structures show no acute abnormalities. IMPRESSION: 1. No acute cardiopulmonary process. Dictated by: Dictated on workstation # [id number]
--- NOTE | 2019-09-05 10:41 | ED Respiratory ---
General Chief Complaint: Respiratory Problems Stated Complaint: SOA Nursing Triage Note: patient states sob since yesterday. reports hx of asthma, states took inhaler and breathing treatment prior to coming to ER. pt reports did have an appt with physician this morning, did not feel she could hold off till then. Other complaints are sore throat and ear pain. Source: patient Exam Limitations: no limitations History of Present Illness Date Seen by Provider: Sep 05, 2019 Time Seen by Provider: 09:40 Initial Comments Here with report of asthma exacerbation that has been going on over the last 24 hours. She's not been feeling well for a few days. She has had a use her nebulizer treatments and albuterol inhaler to help control the breathing symptoms. She arrives with an O2 sat in the mid to low 80s. She has had history of multiple exacerbations of COPD. Denies nausea or vomiting. Timing/Duration: yesterday Severity: moderate Prior Episodes/Possible Cause: occasional episodes Modifying Factors: Improves With Albuterol Inhaler, Improves With Albuterol Nebulizer Associated Symptoms: cough, fever/chills, shortness of breath, sore throat Allergies and Home Medications Allergies Coded Allergies: morphine (Verified Allergy, Mild, 10/05/18) itch Home Medications Albuterol Sulfate 18 Gm Hfa.aer.ad, 2 PUFF IH Q4H PRN for SHORTNESS OF BREATH, (Reported) Benzonatate 100 Mg Capsule, 100 MG PO TID PRN for COUGH, (Reported) Budesonide/Formoterol Fumarate 10.2 Gm Hfa.aer.ad, 2 PUFF IH BID, (Reported) Bupropion HCl 150 Mg Tablet.er, 300 MG PO DAILY, (Reported) Bupropion HCl 150 Mg Tablet.er, 150 MG PO HS, (Reported) Duloxetine HCl 30 Mg Capsule.dr, 90 MG PO DAILY, (Reported) Ipratropium/Albuterol Sulfate 3 Ml Ampul.neb, 3 ML IH Q4H PRN for SHORTNESS OF BREATH, (Reported) Lorazepam 1 Mg Tablet, 1 MG PO BID PRN for ANXIETY, (Reported) Meloxicam 15 Mg Tablet, 7.5 MG PO DAILY, (Reported) Oseltamivir Phosphate 75 Mg Cap, 75 MG PO BID Please send remainder of Tamiflu home to finish 5 day course Prescribed by: PHILIP PITTS on 11/25/18 1113 Polyethylene Glycol 3350 17 Gm Powd.pack, 17 GM PO DAILY Prescribed by: PHILIP PITTS on 11/25/18 111 Prednisone 10 Mg Tab, 0 PO UD Take 6 tabs(60mg)daily for one day, then, decrease by 1 tab(10mg) every other day. Prescribed by: PHILIP PITTS on 11/25/18 111 Promethazine HCl/Codeine 118 Ml Syrup, 5 ML PO Q4H PRN for COUGH Prescribed by: PHILIP PITTS on 11/25/18 111 Tramadol HCl 50 Mg Tablet, 50 MG PO Q6H PRN for PAIN Prescribed by: VALENTÍN NAVA on 11/19/18 2349 Zolpidem Tartrate 10 Mg Tablet, 10 MG PO HS, (Reported) Patient Home Medication List Home Medication List Reviewed: Yes Review of Systems Review of Systems Constitutional: see HPI; No chills, No fever EENTM: nose congestion, throat pain Respiratory: cough, short of breath, wheezing Cardiovascular: no symptoms reported Gastrointestinal: no symptoms reported Genitourinary: no symptoms reported Musculoskeletal: no symptoms reported All Other Systems Reviewed Negative Unless Noted: Yes Past Ejowmmm-Kcdpfd-Xybntn Hx Past Med/Social Hx: Reviewed Nursing Past Med/Soc Hx Patient Social History Alcohol Use: Occasionally Uses Recreational Drug Use: No Smoking Status: Former Smoker Type Used: Cigarettes Former Smoker, Quit: Jul 27, 2013 Recent Foreign Travel: No Contact w/Someone Who Travel: No Recent Infectious Disease Expo: No Recent Hopitalizations: No Immunizations Up To Date Tetanus Booster (TDap): Unknown PED Vaccines UTD: Yes Date of Pneumonia Vaccine: Oct 22, 2008 Date of Influenza Vaccine: Jun 24, 2018 Seasonal Allergies Seasonal Allergies: No Past Medical History Surgeries: Yes (GASTRIC BYPASS - 2001) Abdominal Respiratory: Yes Asthma Currently Using BIPAP: Yes Cardiac: No Neurological: No Reproductive Disorders: No Sexually Transmitted Disease: No HIV/AIDS: No Bladder Infection Gastroesophageal Reflux, Chronic Constipation Musculoskeletal: No Chronic Back Pain Endocrine: No Cancer: No Psychosocial: No Sleep Difficulties, Anxiety, ODD, Depression Integumentary: Yes Blood Disorders: Yes (ANEMIA) Adverse Reaction/Blood Tranf: No Family Medical History Reviewed Nursing Family Hx Cancer 03 FATHER (PANCREATITC) Family history: Cardiovascular disease 03 FATHER ([place]) Physical Exam Vital Signs - First Documented 09/05/19 09/05/19 09:15 09:42 Temp 36.0 Pulse 121 Resp 30 B/P (MAP) 147/88 (107) Pulse Ox 94 O2 Delivery OxyMask O2 Flow Rate 5.00 Capillary Refill : Less Than 3 Seconds Height: 5'4.00" Weight: 323lbs. 2.0oz. 146.583059ql; 45.00 BMI Method:Estimated General Appearance: WD/WN, no apparent distress HEENT: PERRL/EOMI, pharynx normal Neck: full range of motion, supple Respiratory: decreased breath sounds, accessory muscle use, wheezing Cardiovascular: no murmur, tachycardia Gastrointestinal: soft Extremities: non-tender, normal inspection Neurologic/Psychiatric: alert, oriented x 3 Skin: normal color, warm/dry Focused Exam Lactate Level 09/05/19 10:20: Lactic Acid Level 1.92 Lactic Acid Level Laboratory Tests Test 09/05/19 10:20 Lactic Acid Level 1.92 MMOL/L (0.50-2.00) Progress/Results/Core Measures Suspected Sepsis Recent Fever Within 48 Hours: No Infection Criteria Present: None New/Unexplained Altered Menta: No Sepsis Screen: No Definite Risk SIRS Temperature: Pulse: 121 Respiratory Rate: 30 Laboratory Tests 09/05/19 10:20: White Blood Count 14.4H Blood Pressure 147 /88 Mean: 107 09/05/19 10:20: Lactic Acid Level 1.92 Laboratory Tests 09/05/19 10:20: Creatinine 0.80, INR Comment 1.1, Platelet Count 253, Total Bilirubin 0.6 Results/Orders Lab Results Laboratory Tests Test 09/05/19 10:20 Range/Units White Blood Count 14.4 H 4.3-11.0 10^3/uL Red Blood Count 4.81 4.35-5.85 10^6/uL Hemoglobin 12.8 11.5-16.0 G/DL Hematocrit 40 35-52 % Mean Corpuscular Volume 82 80-99 FL Mean Corpuscular Hemoglobin 27 25-34 PG Mean Corpuscular Hemoglobin Concent 32 32-36 G/DL Red Cell Distribution Width 16.5 H 10.0-14.5 % Platelet Count 253 130-400 10^3/uL Mean Platelet Volume 10.8 H 7.4-10.4 FL Neutrophils (%) (Auto) 81 H 42-75 % Lymphocytes (%) (Auto) 9 L 12-44 % Monocytes (%) (Auto) 6 0-12 % Eosinophils (%) (Auto) 4 0-10 % Basophils (%) (Auto) 0 0-10 % Neutrophils # (Auto) 11.7 H 1.8-7.8 X 10^3 Lymphocytes # (Auto) 1.3 1.0-4.0 X 10^3 Monocytes # (Auto) 0.9 0.0-1.0 X 10^3 Eosinophils # (Auto) 0.5 H 0.0-0.3 10^3/uL Basophils # (Auto) 0.0 0.0-0.1 10^3/uL Prothrombin Time 14.2 12.2-14.7 SEC INR Comment 1.1 0.8-1.4 Activated Partial Thromboplast Time 31 24-35 SEC Sodium Level 137 135-145 MMOL/L Potassium Level 4.1 3.6-5.0 MMOL/L Chloride Level 102 98-107 MMOL/L Carbon Dioxide Level 21 21-32 MMOL/L Anion Gap 14 5-14 MMOL/L Blood Urea Nitrogen 8 7-18 MG/DL Creatinine 0.80 0.60-1.30 MG/DL Estimat Glomerular Filtration Rate > 60 BUN/Creatinine Ratio 10 Glucose Level 115 H 70-105 MG/DL Lactic Acid Level 1.92 0.50-2.00 MMOL/L Calcium Level 9.3 8.5-10.1 MG/DL Corrected Calcium 9.3 8.5-10.1 MG/DL Total Bilirubin 0.6 0.1-1.0 MG/DL Aspartate Amino Transf (AST/SGOT) 24 5-34 U/L Alanine Aminotransferase (ALT/SGPT) 23 0-55 U/L Alkaline Phosphatase 96 40-136 U/L Total Protein 7.4 6.4-8.2 GM/DL Albumin 4.0 3.2-4.5 GM/DL My Orders Orders - ELIOT TREJO MD Albuterol/Ipra Inhalation Soln (Duoneb I (09/05/19 09:30) Svn Small Volume Nebulizer (09/05/19 09:26) Albuterol Pre-Mix Nebs (Rt) (Proventil (09/05/19 09:52) Svn Small Volume Nebulizer (09/05/19 09:52) Albuterol Pre-Mix Nebs (Rt) (Proventil (09/05/19 10:07) Svn Small Volume Nebulizer (09/05/19 10:07) Cbc With Automated Diff (09/05/19 10:08) Comprehensive Metabolic Panel (09/05/19 10:08) Blood Culture (09/05/19 10:08) Sputum Culture (09/05/19 10:08) Protime With Inr (09/05/19 10:08) Partial Thromboplastin Time (09/05/19 10:08) Chest 1 View, Ap/Pa Only (09/05/19 10:08) Ed Iv/Invasive Line Start (09/05/19 10:08) Vital Signs Adult Sepsis Patie Q15M (09/05/19 10:08) O2 (09/05/19 10:08) Remove Rings In Anticipation O (09/05/19 10:08) Lactic Acid Analyzer (09/05/19 10:08) Methylprednisolone Sod Succ (Solu-Medrol (09/05/19 10:08) Lactated Ringers (Lr 1000 Ml Iv Solution (09/05/19 10:08) Manual Differential (09/05/19 10:20) Albuterol Pre-Mix Nebs (Rt) (Proventil (09/05/19 11:28) Ipratropium 0.02% Neb Solution (Atrovent (09/05/19 11:30) Svn Small Volume Nebulizer (09/05/19 11:28) Svn Small Volume Nebulizer (09/05/19 11:28) Medications Given in ED Current Medications Medications Dose Ordered Sig/Juan Route Start Time Stop Time Status Last Admin Dose Admin Albuterol/ Ipratropium 3 ml ONCE ONCE INH 09/05/19 09:30 09/05/19 09:31 DC 09/05/19 09:41 3 ML Vital Signs/I&O 09/05/19 09/05/19 09/05/19 09/05/19 09:15 09:42 09:57 10:06 Temp 36.0 Pulse 121 Resp 30 B/P (MAP) 147/88 (107) Pulse Ox 94 94 94 O2 Delivery OxyMask OxyMask OxyMask O2 Flow Rate 5.00 5.00 5.00 09/05/19 10:11 Pulse Ox 94 O2 Delivery Nasal Cannula O2 Flow Rate 3.00 Capillary Refill : Less Than 3 Seconds Blood Pressure Mean: 107 POS Progress Note : Progress Note Seen and evaluated. Duo neb ordered. This is not really significantly changing the course of her breathing. IV, labs, chest x-ray, Solu-Medrol 125 mg IV, albuterol neb 3 ordered. LR 1 L bolus. Monitor patient. 1125: Still requiring O2. Continuous hour-long treatment ordered. I discussed the case with Dr. Corona and she accepts patient for admission, inpatient status. Requesting consult with pulmonology. 1130: I discussed case with Dr. Chavez accepts patient for consult. All findings and concerns discussed with patient who agrees with the plan. Diagnostic Imaging Diagonstic Imaging: Xray Plain Films/CT/US/NM/MRI: chest Comments [facility]. POS [place], [place] POS NAME: APRIL DUARTE L[facility] REC#: [id number] PT STATUS: REG ER : 1970 PHYSICIAN: ELIOT TREJO MD ADMIT DATE: 09/05/19/ER Draft POSDate of Exam:09/05/19 CHEST 1 VIEW, AP/PA ONLY INDICATION: Cough and congestion. COMPARISON: 11/21/2018 FINDINGS: 2 frontal radiograph views of the chest were obtained and demonstrate normal heart size and pulmonary vascularity. The lungs are well aerated and clear. No large pleural effusion or pneumothorax is seen. The visualized osseous structures show no acute abnormalities. IMPRESSION: 1. No acute cardiopulmonary process. Dictated on workstation # [id number] Dict: 09/05/19 1033 Trans: 09/05/19 1036 [id number] Interpreted by: KEN OSPINA MD Electronically signed by: Departure Communication (Admissions) Time/Spoke to Admitting Phy: 11:25 Time/Spoke to Consulting Phy: 11:30 Impression Primary Impression: COPD with acute exacerbation Additional Impression: Hypoxia Disposition: ADMITTED INPATIENT Condition: Stable Admissions Decision to Admit Reason: Admit from ER (General) Decision to Admit/Date: Sep 05, 2019 Time/Decision to Admit Time: 11:25 Departure-Patient Inst. Referrals: [facility] (PCP/Family) Primary Care Physician ELIOT TREJO MD Sep 05, 2019 10:41 POS
[2019-09-05 10:47] LABS: INR 1.1 (0.8-1.4); PROTHROMBIN TIME PATIENT 14.2 SEC (12.2-14.7)
[2019-09-05 10:54] LABS: ALANINE AMINOTRANSFERASE 23 U/L (0-55); ALKALINE PHOSPHATASE 96 U/L (40-136); BILIRUBIN,TOTAL 0.6 MG/DL (0.1-1.0); BUN/CREATININE RATIO 10; CALCIUM 9.3 MG/DL (8.5-10.1); CARBON DIOXIDE 21 MMOL/L (21-32); CHLORIDE 102 MMOL/L (98-107); GFR ESTIMATED > 60; GLUCOSE 115 MG/DL (70-105); SODIUM 137 MMOL/L (135-145); TOTAL PROTEIN 7.4 GM/DL (6.4-8.2)
[2019-09-05 10:58] LABS: POTASSIUM 4.1 MMOL/L (3.6-5.0)
[2019-09-05] MEDS ORDERED: RT-IPRATROPIUM (ATROVENT) 0.5MG/2.5ML AMP IH ONE (11:30)
[2019-09-05 12:40] LABS: BAND NEUTROPHILS 5 %; BASOPHILS % (MANUAL) 0 %; EOSINOPHILS % (MANUAL) 3 %; LYMPHOCYTES % (MANUAL) 6 %; MONOCYTES % (MANUAL) 4 %; NEUTROPHILS % (MANUAL) 82 %; NUCLEATED RED BLOOD CELLS 1
[2019-09-05 12:41] LABS: RBC MORPH NORMAL; TOXIC GRANULATION/VACUOLAZATIO 1+
--- NOTE | 2019-09-05 13:40 | NUR ---
APRIL DUARTE admitted to room 415-1, with an admitting diagnosis of COPD, on 09/05/19 from ED via WC, accompanied by STAFF. APRIL DUARTE introduced to surroundings, call light, bed controls, phone, TV, temperature control, lights, meal times, smoking policy, visitor policy, side rail policy, bathrooms and showers. Patient Rights given to patient in the handbook. APRIL DUARTE verbalizes understanding that [facility] is not responsible for the loss or damage to any personal effects or valuables that are kept in the patients posession during their hospitalization. The following Patient Care Plans were discussed with the PT: Discharge Planning, PAIN, AND COPD. APRIL DUARTE verbalizes understanding of Interdisciplinary Patient Education. Patient and/or family were informed about the Rapid Response Team and its purpose.
[2019-09-05] MEDS ORDERED: CATHETER FLUSH 10 ML SYR IV PRN (13:45)
--- NOTE | 2019-09-05 13:50 | NUR ---
DR. MCNALLY AND ANCA NOTIFIED THAT PT REFUSES DR. MARCH TO SEE HER.
[2019-09-05] MEDS ORDERED: BUPR200T2 PO (14:21)
[2019-09-05] MEDS ORDERED: CYCL10TA9 PO (14:21)
[2019-09-05] MEDS ORDERED: ALBU2.5V4 NEB (14:21)
[2019-09-05] MEDS ORDERED: RT-ALBUINH IH (14:21)
[2019-09-05] MEDS ORDERED: ACET-2267 PO (14:22)
--- NOTE | 2019-09-05 14:23 | NUR ---
SPOKE WITH THE PATIENT ABOUT HER MEDICATIONS. [facility] AND WENT OVER THAT LIST WITH THE PATIENT. [facility] FILLED: 08-31-19 FLEXERIL 10MG TID (HAS NOT PICKED UP YET) 08-30-19 WELLBUTRIN SR 200MG BID #60 08-30-19 PROAIR 2 PUFFS Q4H PRN 08-09-19 MOBIC 15MG DAILY #30 08-09-19 CYMBALTA 30MG 3 DAILY #90 06-16-19 KLONOPIN 0.5MG BID PRN #56 (NO LONGER TAKING) SHE STATES SHE IS SUPPOSED TO USE SYMBICORT AND SHE NEEDS DUONEB BUT SHE DOES NOT HAVE ANY ON HAND. SHE STATES SHE DOES HAVE PLAIN ALBUTEROL NEBULIZER SOLUTION ON HAND NEEDED. SHE ALSO MENTIONS THEY HAVE AUTHORIZED PULMICORT SOLUTION FOR HER NEBULIZER THROUGH THE REPOSITORY BUT SHE HAS NOT MADE IT THERE TO PICK IT UP. SHE TAKES TYLENOL 500MG 2 TABS BID OTC.
--- NOTE | 2019-09-05 14:27 | History & Physical-Hospitalist ---
NICKI VALLE,MED STUDENT 09/05/19 1427: History of Present Illness HPI/Chief Complaint Patient is a 49 y/o female patient of Dr. Mckeon who presents from the ED for COPD exacerbation. She presented to the ED this afternoon with O2 sat in the mid to low 80s with only mild improvement after Duoneb and albuterol treatments. CXR was negative. She reports feeling sick for the past 2 weeks with increasing shortness of breath, hoarseness, productive cough, and body aches. She states that over the past several days she has also noticed sore throat and bilateral ear pain. 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 She has a history of COPD exacerbations and states that this time she feels she needs antibiotics. Source: patient, RN/MD, old records Date Seen 09/05/19 Time Seen by a Provider: 14:00 Attending Physician Josefina Mcnally DO [facility] [place] Referring Physician Date of Admission Sep 05, 2019 at 11:32 Home Medications & Allergies Home Medications Reviewed patient Home Medication Reconciliation performed by pharmacy medication reconciliations x ray technician and/or nursing. Patients Allergies have been reviewed. Allergies Allergies Coded Allergies morphine (Verified Allergy, Mild, 10/05/18) itch Past Gkhlglm-Bcemtp-Vlzxfj Hx Past Med/Social Hx: Reviewed Nursing Past Med/Soc Hx Patient Social History Alcohol Use: Occasionally Uses Recreational Drug Use: No Smoking Status: Former Smoker Former Smoker, Quit: Jul 27, 2013 Type Used: Cigarettes Recent Foreign Travel: No Contact w/other who traveled: No Recent Hopitalizations: No Recent Infectious Disease Expo: No Immunizations Up To Date Tetanus Booster (TDap): Unknown Pediatric: Yes Date of Pneumonia Vaccine: Oct 22, 2008 Date of Influenza Vaccine: Jun 24, 2018 Seasonal Allergies Seasonal Allergies: No Past Medical History Surgeries: Abdominal Respiratory: Asthma, Sleep Apnea Currently Using BIPAP: Yes Reproductive: No Sexually Transmitted Disease: No HIV/AIDS: No Genitourinary: Bladder Infection Gastrointestinal: Gastroesophageal Reflux, Chronic Constipation Musculoskeletal: Chronic Back Pain Psychosocial: Sleep Difficulties, Anxiety, ODD, Depression History of Blood Disorders: Yes (ANEMIA) Adverse Reaction to Blood Pascual: No Family History Reviewed Nursing Family Hx Cancer 03 FATHER (PANCREATITC) Family history: Cardiovascular disease 03 FATHER ([place]) Review of Systems Constitutional: No chills, No fever EENTM: ear pain, throat pain Respiratory: cough, wheezing Cardiovascular: No chest pain, No palpitations Gastrointestinal: No abdominal pain, No constipation Genitourinary: No dysuria, No frequency Musculoskeletal: No back pain, No joint pain Skin: No change in color, No rash Psychiatric/Neurological: Denies Anxiety, Denies Depressed Physical Exam Physical Exam Vital Signs Vital Signs - First Documented 09/05/19 09/05/19 09:15 09:42 Temp 36.0 Pulse 121 Resp 30 B/P (MAP) 147/88 (107) Pulse Ox 94 O2 Delivery OxyMask O2 Flow Rate 5.00 Capillary Refill : Less Than 3 Seconds Height, Weight, BMI Height: 5'4.00" Weight: 323lbs. 2.0oz. 146.503417or; 45.00 BMI Method:Estimated General Appearance: No Apparent Distress, Obese HEENT: PERRL/EOMI, Pharynx Normal Neck: Non Tender, Supple Respiratory: Chest Non Tender, No Accessory Muscle Use, No Respiratory Distress, Wheezing (mild wheezes bilaterally) Cardiovascular: No Murmur, Tachycardia, Other (regular rhythm) Gastrointestinal: Non Tender, Soft Extremity: No Calf Tenderness, No Pedal Edema Neurologic/Psychiatric: Alert, No Motor/Sensory Deficits Skin: Normal Color, Warm/Dry Lymphatic: No Adenopathy Results Results/Procedures Labs Laboratory Tests 09/05/19 10:20 Patient resulted labs reviewed. Assessment/Plan Admission Diagnosis Admission Status: Inpatient Order (span 2 midnights) Reason for Inpatient Admission: COPD with acute exacerbation Hypoxia Assessment and Plan Assessment: COPD with acute exacerbation Hypoxia Plan: Continue methylprednisolone IV fluids Breathing treatments as needed Dr. Chavez consulted Expect discharge to home in 2 days when respiratory status improves JOSEFINA MCNALLY DO 09/05/192054: History of Present Illness HPI/Chief Complaint CC: AECOPD HPI: This is a 49yoWF clinic patient of Dr Mckeon who has a h/o COPD and SVETLANA who refuses to allow Dr Chavez to see her in consultation who presents to the ER with dyspnea after she couldn't wait until her appt today at 0915 and was dx with severe AECOPD. Patient feels like she needs an abx due to coughing up green yellow sputum so I initiated Zmax IV. Patient refuses Lovenox and SCD's. Past Ssayikf-Towlqd-Eavkig Hx Past Med/Social Hx: Reviewed Nursing Past Med/Soc Hx, Reviewed and Corrections made Patient Social History Marrital Status: single Employed/Student: unemployed Alcohol Use: Denies Use Smoking Status: Former Smoker Past Medical History Respiratory: Asthma, COPD, Pneumonia, Sleep Apnea Family History Cancer 03 FATHER (PANCREATITC) Family history: Cardiovascular disease 03 FATHER ([place]) Review of Systems Constitutional: malaise Respiratory: dyspnea on exertion, short of breath, wheezing Physical Exam Physical Exam General Appearance: No Apparent Distress, WD/WN, Chronically ill, Obese Eyes: Right Eye Normal Inspection, Right Eye PERRL HEENT: PERRL/EOMI, Normal ENT Inspection, Pharynx Normal, Moist Mucous Membranes Neck: Full Range of Motion, Normal Inspection, Non Tender Respiratory: Chest Non Tender, No Accessory Muscle Use, No Respiratory Distress, Crackles, Decreased Breath Sounds, Wheezing (mild wheezes bilaterally) Cardiovascular: Regular Rate, Rhythm, No Edema, No Gallop, No JVD, No Murmur, Normal Peripheral Pulses Gastrointestinal: Normal Bowel Sounds, No Organomegaly, No Pulsatile Mass, Non Tender, Soft Back: Normal Inspection, No CVA Tenderness, No Vertebral Tenderness Extremity: Normal Capillary Refill, Normal Inspection, Normal Range of Motion, Non Tender, No Calf Tenderness, No Pedal Edema Neurologic/Psychiatric: Alert, Oriented x3, No Motor/Sensory Deficits, Normal Mood/Affect Skin: Normal Color, Warm/Dry Lymphatic: No Adenopathy Assessment/Plan Admission Diagnosis Assessment: AECOPD Acute bacterial bronchitis Obesity Former smoker Plan: IV steroids Nebs O2 Lovenox Home meds Admission Status: Inpatient Order (span 2 midnights) Reason for Inpatient Admission: AECOPD severe in type Diagnosis/Problems Diagnosis/Problems (1) COPD with acute exacerbation Status: Acute (2) Hypoxia Status: Acute (3) Asthma Status: Chronic (4) Anemia Onset Date: 11/02/2013 Status: Chronic (5) DVT prophylaxis Status: Acute Supervisory-Addendum Brief Verification & Attestation Participated in pt care: history, MDM, physical Personally performed: exam, history, MDM, supervision of care Care discussed with: Medical Student Procedures: n/a Results interpretation: Verified all documentation Verification and Attestation of Medical Student E/M Service A medical student performed and documented this service in my presence. I reviewed and verified all information documented by the medical student and made modifications to such information, when appropriate. I personally performed the physical exam and medical decision making. Josefina Mcnally, Sep 05, 2019,20:55 NICKI VALLE,MED STUDENT Sep 05, 2019 14:27 JOSEFINA GUZMAN DO Sep 05, 2019 20:55 POS
[2019-09-05] MEDS: NS IV 1000 ML 1,000 ML IV SCH (14:45)
[2019-09-05 15:03] VITALS: BP 170/68
--- NOTE | 2019-09-05 15:34 | NUR ---
Initial visit: The pt is spiritual and shared that her struggle with weight gain and related health problems. She shared that she reflects upon her relationship with food is likewise spiritual and she approaches it from the standpoint of a 12 step program. 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 Addendum: 09/05/19 at 1547 by JAHAIRA CHAMBERS PAST She describes her relationship with food as spiritual as well, and approaches it from the standpoint of a 12 step program.
[2019-09-05 16:21] VITALS: BP 118/64
[2019-09-05] MEDS ORDERED: ENOXAPARIN 40 MG/0.4 ML (LOVENOX) SYR SC SCH (17:30)
[2019-09-05] MEDS: ENOXAPARIN 60 MG/0.6 ML (LOVENOX) SYR SC SCH (17:50)
--- NOTE | 2019-09-05 17:51 | NUR ---
REFUSED LOVENOX AND SCDS. DR. MCNALLY NOTIFIED.
[2019-09-05] MEDS: AZITHROMYCIN INJECTION 500 MG in NS (IVPB) 250 ML IV SCH (18:19)
[2019-09-05] MEDS: buPROPion SR 100 MG (WELLBUTRIN SR) TAB PO SCH (18:19)
[2019-09-05] MEDS: methylPREDNISolone 40 MG/ML (Solu-MEDROL) VIAL IV SCH ×2 (18:19→22:38)
[2019-09-05] MEDS: CYCLOBENZAPRINE 10 MG (FLEXERIL) TAB PO PRN (18:22)
[2019-09-05 20:00] VITALS: BP 139/65
[2019-09-05] MEDS: ACETAMINOPHEN 500 MG TAB (TYLENOL) PO SCH (20:08)
[2019-09-05] MEDS ORDERED: RT-ALBUTEROL/IPRATROPIUM 3 ML (DUONEB) VIAL ONE (20:50)
[2019-09-05] MEDS ORDERED: NON-FORMULARY MEDICATION 1 EA EA (Bupropion HCl (Wellbutrin Sr) 200 MG) PO SCH (21:00)
[2019-09-05] MEDS ORDERED: NON-FORMULARY MEDICATION 1 EA EA (Acetaminophen (Tylenol Extra Strength) 1,000 MG) PO SCH (21:00)
[2019-09-05] MEDS ORDERED: RT-ALBUTEROL/IPRATROPIUM 3 ML (DUONEB) VIAL INH PRN (21:30)
[2019-09-05] MEDS: RT-ALBUTEROL/IPRATROPIUM 3 ML (DUONEB) VIAL INH SCH (22:17)
[2019-09-06] VITALS (7 sets, daily range): BP systolic 104–136; BP diastolic 58–81
[2019-09-06] MEDS: CYCLOBENZAPRINE 10 MG (FLEXERIL) TAB PO PRN ×2 (00:01→17:26)
[2019-09-06] MEDS: RT-ALBUTEROL/IPRATROPIUM 3 ML (DUONEB) VIAL INH SCH ×5 (01:12→22:25)
[2019-09-06] MEDS: NS IV 1000 ML 1,000 ML IV SCH ×2 (04:18→15:33)
[2019-09-06 05:25] LABS: BASOPHILS % (AUTO) 0 % (0-10); EOSINOPHILS % (AUTO) 0 % (0-10); HEMATOCRIT 36 % (35-52); HEMOGLOBIN 11.3 G/DL (11.5-16.0); LYMPHOCYTES # (AUTO) 0.7 X 10^3 (1.0-4.0); LYMPHOCYTES % (AUTO) 5 % (12-44); MEAN CORPUSCULAR HEMOGLOBIN 26 PG (25-34); MEAN CORPUSCULAR HGB CONC 32 G/DL (32-36); MEAN CORPUSCULAR VOLUME 82 FL (80-99); MEAN PLATELET VOLUME 10.8 FL (7.4-10.4); MONOCYTES # (AUTO) 0.3 X 10^3 (0.0-1.0); MONOCYTES % (AUTO) 3 % (0-12); NEUTROPHILS # (AUTO) 12.3 X 10^3 (1.8-7.8); NEUTROPHILS % (AUTO) 92 % (42-75); PLATELET COUNT 254 10^3/uL (130-400); RED CELL DISTRIBUTION WIDTH 16.6 % (10.0-14.5); WHITE BLOOD COUNT 13.3 10^3/uL (4.3-11.0)
[2019-09-06 05:27] LABS: ALANINE AMINOTRANSFERASE 16 U/L (0-55); ALBUMIN 3.6 GM/DL (3.2-4.5); ALKALINE PHOSPHATASE 78 U/L (40-136); BILIRUBIN,TOTAL 0.2 MG/DL (0.1-1.0); BUN/CREATININE RATIO 14; CALCIUM 8.9 MG/DL (8.5-10.1); CARBON DIOXIDE 20 MMOL/L (21-32); CHLORIDE 108 MMOL/L (98-107); CREATININE SERUM 0.74 MG/DL (0.60-1.30); GFR ESTIMATED > 60; GLUCOSE 174 MG/DL (70-105); POTASSIUM 3.9 MMOL/L (3.6-5.0); SODIUM 139 MMOL/L (135-145); TOTAL PROTEIN 6.5 GM/DL (6.4-8.2)
[2019-09-06] MEDS: methylPREDNISolone 40 MG/ML (Solu-MEDROL) VIAL IV SCH ×3 (06:04→23:07)
[2019-09-06] MEDS: ENOXAPARIN 60 MG/0.6 ML (LOVENOX) SYR SC SCH (06:04)
[2019-09-06] MEDS: buPROPion SR 100 MG (WELLBUTRIN SR) TAB PO SCH ×2 (06:04→17:19)
[2019-09-06] MEDS: MELOXICAM 7.5 MG (MOBIC) TABLET PO SCH (08:57)
[2019-09-06] MEDS: ACETAMINOPHEN 500 MG TAB (TYLENOL) PO SCH ×2 (08:58→22:09)
[2019-09-06] MEDS: DULoxetine 30 MG (CYMBALTA) CAP PO SCH (08:58)
[2019-09-06] MEDS ORDERED: NON-FORMULARY MEDICATION 1 EA EA (Meloxicam 15 MG) PO SCH (09:00)
[2019-09-06] MEDS ORDERED: DULOXETINE HCL 90 MG PO SCH (09:00)
--- NOTE | 2019-09-06 10:50 | Progress Note - Hospitalist ---
NICKI VALLE,MED STUDENT 09/06/19 1050: Subjective HPI/CC On Admission Date Seen by Provider: Sep 06, 2019 Time Seen by Provider: 10:02 CC: AECOPD HPI: This is a 49yoWF clinic patient of Dr Mckeon who has a h/o COPD and SVETLANA who refuses to allow Dr Chavez to see her in consultation who presents to the ER with dyspnea after she couldn't wait until her appt today at 0915 and was dx with severe AECOPD. Patient feels like she needs an abx due to coughing up green yellow sputum so I initiated Zmax IV. Patient refuses Lovenox and SCD's. Subjective/Events-last exam Patient reports feeling worse today with increased shortness of breath and wheezing. Nebulizer treatments are helpful. She now agrees to see Dr. Chavez in consult. She reports difficulty sleeping due to IV steroids and requests Ambien at night. Focused Exam Lactate Level 09/05/19 10:20: Lactic Acid Level 1.92 Objective Exam Vital Signs Vital Signs Date Time Temp Pulse Resp B/P (MAP) Pulse Ox O2 Delivery O2 Flow Rate FiO2 09/06/19 09:24 89 Nasal Cannula 8.00 09/06/19 04:00 36.2 93 20 119/58 (78) Capillary Refill : Less Than 3 SecondsLess Than 3 Seconds General Appearance: No Apparent Distress, Obese HEENT: PERRL/EOMI, Pharynx Normal Neck: Non Tender, Supple Respiratory: Chest Non Tender, No Accessory Muscle Use, No Respiratory Distress, Decreased Breath Sounds, Wheezing (bilaterally, worse on the left) Cardiovascular: No Murmur, Tachycardia (regular rhythm) Gastrointestinal: Non Tender, Soft Extremity: No Calf Tenderness, No Pedal Edema Neurologic/Psychiatric: Alert, Normal Mood/Affect Lymphatic: No Adenopathy Results/Procedures Lab Laboratory Tests 09/06/19 04:43 Patient resulted labs reviewed. Assessment/Plan Assessment and Plan Assess & Plan/Chief Complaint Assessment: COPD with acute exacerbation Hypoxia Plan: Continue methylprednisolone IV fluids and azithromycin Breathing treatments as needed Dr. Chavez consulted Ambien at night for sleep Clinical Quality Measures DVT/VTE Risk/Contraindication: Risk Factor Score Per Nursin RFS Level Per Nursing on Admit: 4+=Very High JOSEFINA MCNALLY DO 09/07/19 1520: Subjective Subjective/Events-last exam Pt feels like she is worse. Reluctantly agrees for Dr. Chavez consultation. Ambien will be ordered for night time, the steroids keep her up. Pt feels like Vapotherm is in her future. Lungs still sound wheezy. Review of Systems Pulmonary: Dyspnea, Cough Objective Exam General Appearance: Anxious, Chronically ill, Mild Distress, Obese Respiratory: Decreased Breath Sounds, Wheezing (bilaterally, worse on the left) Cardiovascular: Tachycardia (regular rhythm) Neurologic/Psychiatric: Alert, Oriented x3, No Motor/Sensory Deficits, Normal Mood/Affect Assessment/Plan Assessment and Plan Assess & Plan/Chief Complaint Appreciate Dr. Chavez consultation Hypnotic at icu rn closely for need for Vapotherm and BiPAP and ICU transfer Diagnosis/Problems Diagnosis/Problems (1) COPD with acute exacerbation Status: Acute (2) Hypoxia Status: Acute (3) Asthma Status: Chronic (4) Anemia Onset Date: 11/02/2013 Status: Chronic (5) DVT prophylaxis Status: Acute Supervisory-Addendum Brief Verification & Attestation Participated in pt care: history, MDM, physical Personally performed: exam, history, MDM, supervision of care Care discussed with: Medical Student Procedures: n/a Results interpretation: Verified all documentation Verification and Attestation of Medical Student E/M Service A medical student performed and documented this service in my presence. I reviewed and verified all information documented by the medical student and made modifications to such information, when appropriate. I personally performed the physical exam and medical decision making. Josefina Mcnally, Sep 07, 2019,15:19 NICKI VALLE,MED STUDENT Sep 06, 2019 10:50 JOSEFINA MCNALLY DO Sep 07, 2019 15:20
--- NOTE | 2019-09-06 12:50 | NUR ---
RD ASSESSMENT PMHx: COPD; GERD; chronic constipation PT INTERACTION: Pt was awake and pleasant during dietary consult. Pt states current appetite is "okay" and has been "for a bit." Note pt avg PO intake of 50% x1meal, per chart review. Pt states following a restricted diet with no flour and no processed sweets. "If it is on the label, I don't eat it." Pt states no recent issues with chewing/swallowing food at this time. Pt states no recent issues with nausea, but does report episodes of emesis if she coughs too hard. Note pt PMH of COPD, per chart review. Pt states no issues with constipation/diarrhea at this time, and last BM was 09/04. Note pt not currently on bowel regimen, per chart review. Pt states recent 13# wt loss x1week, attributing it to a new diet plan she is following (Note pt did not go into detail what new diet plan consisted of). Note 25# wt gain x9mon, per chart review. Note pt requested consult to inform RD of self-restrictions of flour and processed sweets in her diet, and wanted them to be reflected in her meals during stay. ABNORMAL NUTRITION-RELATED LAB VALUES LOW: HIGH: Cl 108; glu 174 Est. kcal needs: 0123-7400 kcal | 25-30 kcal/kg IBW Est. Pro needs: 55-65 g Pro | 1.0-1.2 g Pro/kg IBW PES STATEMENT: Inadequate oral intake (NI-2.1) related to loss of appetite as evidenced by pt interview | PO intake of 50% x1meal INTERVENTION: Continue with current diet order of Regular diet. Pt may benefit from nutrition supplementation if PO intake declines. Will continue to follow and reassess as pt needs and status change. MONITOR/EVALUATE: PO Intake; Plan of Care; Hydration Status; Weight Status; Lab Values Morris Gonzalez, MS, RD, LD
[2019-09-06] MEDS: AZITHROMYCIN INJECTION 500 MG in NS (IVPB) 250 ML IV SCH (17:19)
[2019-09-06] MEDS: ZOLPIDEM 5 MG (AMBIEN) TAB PO SCH (22:08)
[2019-09-07] MEDS: RT-ALBUTEROL/IPRATROPIUM 3 ML (DUONEB) VIAL INH SCH ×5 (06:40→22:50)
[2019-09-07 08:05] VITALS: BP 154/78
[2019-09-07] MEDS: NS IV 1000 ML 1,000 ML IV SCH ×2 (08:59→23:31)
[2019-09-07] MEDS: MELOXICAM 7.5 MG (MOBIC) TABLET PO SCH (09:47)
[2019-09-07] MEDS: ACETAMINOPHEN 500 MG TAB (TYLENOL) PO SCH ×2 (09:47→21:12)
[2019-09-07] MEDS: DULoxetine 30 MG (CYMBALTA) CAP PO SCH (09:47)
[2019-09-07 10:27] VITALS: BP 154/78
--- NOTE | 2019-09-07 11:18 | Progress Note - Hospitalist ---
NICKI VALLE,MED STUDENT 09/07/19 1118: Subjective HPI/CC On Admission Date Seen by Provider: Sep 07, 2019 Time Seen by Provider: 10:03 CC: AECOPD HPI: This is a 49yoWF clinic patient of Dr Mckeon who has a h/o COPD and SVETLANA who refuses to allow Dr Chavez to see her in consultation who presents to the ER with dyspnea after she couldn't wait until her appt today at 0915 and was dx with severe AECOPD. Patient feels like she needs an abx due to coughing up green yellow sputum so I initiated Zmax IV. Patient refuses Lovenox and SCD's. Subjective/Events-last exam Patient states she feels about the same today. Her biggest complaint at this time is the persistent productive cough. She slept better with the ambien. She reports increased anxiety since starting the IV steroids. Dr. Chavez will see her today. Focused Exam Lactate Level 09/05/19 10:20: Lactic Acid Level 1.92 Objective Exam Vital Signs Vital Signs Date Time Temp Pulse Resp B/P (MAP) Pulse Ox O2 Delivery O2 Flow Rate FiO2 09/07/19 10:33 93 Nasal Cannula 5.00 09/07/19 10:27 36.2 94 5 09/07/19 08:05 22 154/78 (103) Capillary Refill : Less Than 3 SecondsLess Than 3 Seconds General Appearance: No Apparent Distress, WD/WN HEENT: PERRL/EOMI, Pharynx Normal Neck: Non Tender, Supple Respiratory: Chest Non Tender, No Accessory Muscle Use, No Respiratory Distres s, Wheezing (mild wheezing bilaterally, improved from yesterday) Cardiovascular: Regular Rate, Rhythm, No Murmur Gastrointestinal: Non Tender, Soft Extremity: No Calf Tenderness, No Pedal Edema Neurologic/Psychiatric: Alert, Oriented x3, Normal Mood/Affect Skin: Normal Color, Warm/Dry Lymphatic: No Adenopathy Results/Procedures Lab Patient resulted labs reviewed. Assessment/Plan Assessment and Plan Assess & Plan/Chief Complaint Assessment: COPD with acute exacerbation Hypoxia Plan: Continue solumedrol Start Robitussin Dm IV fluids and azithromycin Breathing treatments as needed Dr. Chavez consulted Cassiusien at night for sleep Clinical Quality Measures DVT/VTE Risk/Contraindication: Risk Factor Score Per Nursin RFS Level Per Nursing on Admit: 4+=Very High JOSEFINA MCNALLY DO 09/07/19 1447: Subjective Subjective/Events-last exam Pt doing very well Dr. Chavez providing consultation Lungs sound good but cough remains Ambien will help insomnia from steroids No other issues Review of Systems Pulmonary: Dyspnea, Cough Objective Exam General Appearance: No Apparent Distress, WD/WN, Obese Respiratory: Decreased Breath Sounds, Wheezing (mild wheezing bilaterally, improved from yesterday) Cardiovascular: Regular Rate, Rhythm Neurologic/Psychiatric: Alert, Oriented x3, No Motor/Sensory Deficits, Normal Mood/Affect Assessment/Plan Assessment and Plan Assess & Plan/Chief Complaint Consult Dr Chavez Monitor lungs Diagnosis/Problems Diagnosis/Problems (1) COPD with acute exacerbation Status: Acute (2) Hypoxia Status: Acute (3) Asthma Status: Chronic (4) Anemia Onset Date: 11/02/2013 Status: Chronic (5) DVT prophylaxis Status: Acute Supervisory-Addendum Brief Verification & Attestation Participated in pt care: history, MDM, physical Personally performed: exam, history, MDM, supervision of care Care discussed with: Medical Student Procedures: n/a Results interpretation: Verified all documentation Verification and Attestation of Medical Student E/M Service A medical student performed and documented this service in my presence. I reviewed and verified all information documented by the medical student and made modifications to such information, when appropriate. I personally performed the physical exam and medical decision making. Josefina Mcnally, Sep 07, 2019,14:47 NICKI VALLE,MED STUDENT Sep 07, 2019 11:18 JOSEFINA MCNALLY DO Sep 07, 2019 14:47
[2019-09-07 11:49] VITALS: BP 159/94
[2019-09-07] MEDS: methylPREDNISolone 40 MG/ML (Solu-MEDROL) VIAL IV SCH ×2 (12:47→23:31)
[2019-09-07] MEDS: guaiFENesin/DM (ROBITUSSIN DM) 10 ML UDC PO PRN ×2 (12:47→21:12)
--- NOTE | 2019-09-07 13:27 | NUR ---
Follow up visit: offered prayer for feelings of discouragement and concern for health.
--- NOTE | 2019-09-07 14:11 | NUR ---
INCREASED O2 FROM 3 L TO 4 L DUE TO O2 SAT OF 89%
[2019-09-07] MEDS: AZITHROMYCIN INJECTION 500 MG in NS (IVPB) 250 ML IV SCH (15:24)
[2019-09-07] MEDS: ENOXAPARIN 60 MG/0.6 ML (LOVENOX) SYR SC SCH ×2 (15:43→15:44)
[2019-09-07 16:00] VITALS: BP 149/79
[2019-09-07] MEDS: buPROPion SR 100 MG (WELLBUTRIN SR) TAB PO SCH (17:55)
[2019-09-07] MEDS: RT-BUDESONIDE NEBS 0.5 MG/2ML (PULMICORT) AMP INH SCH (19:15)
[2019-09-07 20:00] VITALS: BP 148/82
[2019-09-07] MEDS: CYCLOBENZAPRINE 10 MG (FLEXERIL) TAB PO PRN (21:11)
[2019-09-07] MEDS: ZOLPIDEM 5 MG (AMBIEN) TAB PO SCH (22:22)
[2019-09-08] VITALS: BP 123/74
[2019-09-08] MEDS: RT-ALBUTEROL/IPRATROPIUM 3 ML (DUONEB) VIAL INH SCH ×6 (02:19→20:34)
[2019-09-08 04:00] VITALS: BP 139/83
[2019-09-08] MEDS: ENOXAPARIN 60 MG/0.6 ML (LOVENOX) SYR SC SCH ×2 (05:43→17:02)
[2019-09-08] MEDS: guaiFENesin/DM (ROBITUSSIN DM) 10 ML UDC PO PRN ×4 (05:43→22:52)
[2019-09-08] MEDS: buPROPion SR 100 MG (WELLBUTRIN SR) TAB PO SCH ×2 (05:43→17:01)
[2019-09-08] MEDS: predniSONE 20 MG TAB PO SCH (05:43)
[2019-09-08 06:48] LABS: BASOPHILS % (AUTO) 0 % (0-10); EOSINOPHILS % (AUTO) 0 % (0-10); HEMATOCRIT 36 % (35-52); LYMPHOCYTES % (AUTO) 9 % (12-44); MEAN CORPUSCULAR HEMOGLOBIN 26 PG (25-34); MEAN CORPUSCULAR HGB CONC 31 G/DL (32-36); MEAN CORPUSCULAR VOLUME 85 FL (80-99); MEAN PLATELET VOLUME 10.6 FL (7.4-10.4); MONOCYTES # (AUTO) 0.6 X 10^3 (0.0-1.0); MONOCYTES % (AUTO) 5 % (0-12); NEUTROPHILS # (AUTO) 9.8 X 10^3 (1.8-7.8); NEUTROPHILS % (AUTO) 86 % (42-75); PLATELET COUNT 239 10^3/uL (130-400); RED CELL DISTRIBUTION WIDTH 16.4 % (10.0-14.5); WHITE BLOOD COUNT 11.4 10^3/uL (4.3-11.0)
[2019-09-08] MEDS: RT-BUDESONIDE NEBS 0.5 MG/2ML (PULMICORT) AMP INH SCH ×2 (07:12→20:34)
[2019-09-08 07:21] LABS: ALANINE AMINOTRANSFERASE 24 U/L (0-55); ALBUMIN 3.6 GM/DL (3.2-4.5); ALKALINE PHOSPHATASE 68 U/L (40-136); BILIRUBIN,TOTAL 0.2 MG/DL (0.1-1.0); BUN/CREATININE RATIO 25; CALCIUM 8.7 MG/DL (8.5-10.1); CARBON DIOXIDE 19 MMOL/L (21-32); CHLORIDE 109 MMOL/L (98-107); CREATININE SERUM 0.81 MG/DL (0.60-1.30); GFR ESTIMATED > 60; GLUCOSE 127 MG/DL (70-105); POTASSIUM 4.1 MMOL/L (3.6-5.0); SODIUM 140 MMOL/L (135-145); TOTAL PROTEIN 6.2 GM/DL (6.4-8.2)
--- NOTE | 2019-09-08 07:49 | Pulmonary Consultation ---
History of Present Illness History of Present Illness Date Seen by Provider: Sep 08, 2019 Time Seen by Provider: 07:30 Date of Admission History of Present Illness The patient is a morbidly obes 49 year old female who presented to the ER on 09/05 due to increasing shortness of breath. She states that she had been becoming increasingly short of breath over the previous week. She had been using her albuterol inhaler regularly but had not been using her symbicort. She reports a 10/pk year history of smoking having quit 6 years ago. She states that she has not been previously diagnosed with COPD. The patient states that she was diagnosed with asthma about 25 years ago and typically uses albuterol rescue inhaler, albuterol nebulizer treatments, and Symbicort at home. This morning the patient is reporting that her symptoms have improved overall. She has decreased shortness of breath and is having much less sputum production with her cough. She denies chest pain, fevers, or chills. She has no other complaints or concerns at this time. Allergies and Home Medications Allergies Coded Allergies: morphine (Verified Allergy, Mild, 09/05/19) itch Home Medications Acetaminophen 500 Mg Tablet, 1,000 MG PO BID, (Reported) TAKES 2 (500MG) TABLETS Albuterol Sulfate 2.5 Mg/3 Ml Vial.neb, 2.5 MG NEB Q4H PRN for SHORTNESS OF BREATH, (Reported) Albuterol Sulfate 1 Puff Puff, 2 PUFF IH Q4H PRN for SHORTNESS OF BREATH, (R eported) 1 PUFF = 90 MCG Bupropion HCl 200 Mg Tablet.er, 200 MG PO BID, (Reported) Cyclobenzaprine HCl 10 Mg Tablet, 10 MG PO TID PRN for MUSCLE SPASMS, (Reported) Duloxetine HCl 30 Mg Capsule.dr, 90 MG PO DAILY, (Reported) TAKES 3 (30MG) CAPSULES Meloxicam 15 Mg Tablet, 15 MG PO DAILY, (Reported) Past Ugwuakn-Qqxdrr-Ufnuow Hx Past Med/Social Hx: Reviewed Nursing Past Med/Soc Hx, Reviewed and Corrections made Patient Social History Alcohol Use: Denies Use Recreational Drug Use: No Smoking Status: Former Smoker Type Used: Cigarettes Former Smoker, Quit: Jul 27, 2013 Recent Foreign Travel: No Contact w/Someone Who Travel: No Recent Infectious Disease Expo: No Recent Hopitalizations: No Immunizations Up To Date Tetanus Booster (TDap): Unknown PED Vaccines UTD: Yes Date of Pneumonia Vaccine: Oct 22, 2008 Date of Influenza Vaccine: Jun 21, 2019 Seasonal Allergies Seasonal Allergies: No Past Medical History Surgeries: Yes (GASTRIC BYPASS - 2001) Abdominal Respiratory: Yes Asthma, COPD Currently Using CPAP: No Currently Using BIPAP: No Cardiac: No Neurological: No Reproductive Disorders: No Female Reproductive Disorders: Denies Sexually Transmitted Disease: No HIV/AIDS: No Genitourinary: Yes Bladder Infection Gastrointestinal: Yes (GASTRIC BYPASS) Gastroesophageal Reflux, Chronic Constipation Musculoskeletal: No Chronic Back Pain Endocrine: No HEENT: No Cancer: No 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 2.0oz. 146.474258wn; 59.98 BMI Method:Estimated Exam Exam Vital Signs Date Time Temp Pulse Resp B/P (MAP) Pulse Ox O2 Delivery O2 Flow Rate FiO2 09/08/19 07:17 94 Nasal Cannula 4.00 09/08/19 07:12 94 Nasal Cannula 4.00 09/08/19 04:00 36.8 76 21 139/83 (101) 94 High Flow N/C 5.00 09/08/19 02:19 94 Nasal Cannula 4.00 09/08/19 00:00 36.1 73 21 123/74 (90) 95 High Flow N/C 5.00 09/07/19 22:50 92 Nasal Cannula 4.00 09/07/19 20:00 36.6 98 18 148/82 (104) 94 High Flow N/C 5.00 09/07/19 19:45 High Flow N/C 4.00 09/07/19 19:14 93 Nasal Cannula 4.00 09/07/19 19:14 93 Nasal Cannula 4.00 09/07/19 16:00 36.2 54 24 149/79 (102) 91 High Flow N/C 5.00 09/07/19 14:07 89 Nasal Cannula 3.00 09/07/19 11:49 36.4 80 18 159/94 (115) 95 High Flow N/C 5.00 09/07/19 10:33 93 Nasal Cannula 5.00 09/07/19 10:28 36.2 09/07/19 10:28 36.2 09/07/19 10:27 36.2 94 96 5 09/07/19 08:05 36.2 89 22 154/78 (103) 94 High Flow N/C 5.00 09/07/19 08:05 High Flow N/C 8.00 09/07/19 08:03 96 Nasal Cannula 7.00 I & O 09/08/19 07:00 Intake Total 5340 ml Balance 5340 ml Height & Weight Height: 5'4.00" Weight: 323lbs. 2.0oz. 146.472767vz; 59.98 BMI Method:Estimated General Appearance: No Apparent Distress, WD/WN, Obese HEENT: PERRL/EOMI, Pharynx Normal Neck: Non Tender, Supple Respiratory: Chest Non Tender, Decreased Breath Sounds, Wheezing (mild wheezing bilaterally, improved from yesterday) Cardiovascular: Regular Rate, Rhythm, No Murmur Capillary Refill: Less Than 3 Seconds Gastrointestinal: soft Extremity: No Calf Tenderness, No Pedal Edema Neurologic/Psychiatric: Alert, Oriented x3, No Motor/Sensory Deficits, Normal Mood/Affect Skin: Normal Color, Warm/Dry Lymphatic: No Adenopathy Results Lab Laboratory Tests 09/08/19 06:27 Assessment/Plan Assessment/Plan Asthma-acute exacerbation -Prednisone 40mg PO daily -Duonebs Q2h PRN -Budesonide BID INH -azithromycin 500mg Q24h starte 09/05 Leukocytosis - 11.4 on 09/08 -secondary to steroids and infection BLAINE STOKES MED STUDENT Sep 08, 2019 07:49
[2019-09-08 08:00] VITALS: BP 121/79
[2019-09-08] MEDS: MELOXICAM 7.5 MG (MOBIC) TABLET PO SCH (08:31)
[2019-09-08] MEDS: DULoxetine 30 MG (CYMBALTA) CAP PO SCH (08:32)
[2019-09-08] MEDS: NS IV 1000 ML 1,000 ML IV SCH (08:32)
[2019-09-08] MEDS: ACETAMINOPHEN 500 MG TAB (TYLENOL) PO SCH ×2 (08:32→21:52)
--- NOTE | 2019-09-08 10:40 | Progress Note - Hospitalist ---
NICKI VALLE,MED STUDENT 09/08/19 1040: Subjective HPI/CC On Admission Date Seen by Provider: Sep 08, 2019 Time Seen by Provider: 09:45 CC: AECOPD HPI: This is a 49yoWF clinic patient of Dr Mckeon who has a h/o COPD and SVETLANA who refuses to allow Dr Chavez to see her in consultation who presents to the ER with dyspnea after she couldn't wait until her appt today at 0915 and was dx with severe AECOPD. Patient feels like she needs an abx due to coughing up green yellow sputum so I initiated Zmax IV. Patient refuses Lovenox and SCD's. Subjective/Events-last exam Patient is feeling much better today. Her shortness of breath and coughing have improved. She slept well last night. The Pulmicort added by Dr. Chavez and the cough syrup have been helpful. She complains of some vaginal itching and requests Diflucan. She is going to increase ambulation today. Objective Exam Vital Signs Vital Signs Date Time Temp Pulse Resp B/P (MAP) Pulse Ox O2 Delivery O2 Flow Rate FiO2 09/08/19 08:00 94 Nasal Cannula 4.00 09/08/19 08:00 36.3 75 18 121/79 (93) 09/07/19 10:27 5 Capillary Refill : Less Than 3 SecondsLess Than 3 Seconds General Appearance: No Apparent Distress, Obese Respiratory: Chest Non Tender, No Accessory Muscle Use, No Respiratory Distress, Wheezing (mild and much improved from previous exam) Cardiovascular: Regular Rate, Rhythm, No Murmur Gastrointestinal: Non Tender, Soft Extremity: No Calf Tenderness, No Pedal Edema Neurologic/Psychiatric: Alert, Normal Mood/Affect Skin: Normal Color, Warm/Dry Lymphatic: No Adenopathy Results/Procedures Lab Laboratory Tests 09/08/19 06:27 Patient resulted labs reviewed. Assessment/Plan Assessment and Plan Assess & Plan/Chief Complaint Assessment: COPD with acute exacerbation Hypoxia Vaginal itching Plan: Continue oral prednisone and robitussin Start Diflucan Home O2 evaluation Encouraged increased ambulation Breathing treatments as needed Clinical Quality Measures DVT/VTE Risk/Contraindication: Risk Factor Score Per Nursin RFS Level Per Nursing on Admit: 4+=Very High JOSEFINA MCNALLY DO 09/08/192030: Subjective Subjective/Events-last exam Pt needs some Diflucan so I ordered that, 100 Mg daily. Will perform a home O2 evaluation although she can't afford it, we may have to do lucila for the DME. 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 Denies any significant pain. Will walk around as much as she can today. Review of Systems Pulmonary: Dyspnea, Cough Objective Exam General Appearance: No Apparent Distress Respiratory: Wheezing (mild and much improved from previous exam) Cardiovascular: Regular Rate, Rhythm Skin: Normal Color, Warm/Dry Assessment/Plan Assessment and Plan Assess & Plan/Chief Complaint DC Thursday? Pulmicort Antitussives Diagnosis/Problems Diagnosis/Problems (1) COPD with acute exacerbation Status: Acute (2) Hypoxia Status: Acute (3) Asthma Status: Chronic (4) Anemia Onset Date: 11/02/2013 Status: Chronic (5) DVT prophylaxis Status: Acute Supervisory-Addendum Brief Verification & Attestation Participated in pt care: history, MDM, physical Personally performed: exam, history, MDM, supervision of care Care discussed with: Medical Student Procedures: n/a Results interpretation: Verified all documentation Verification and Attestation of Medical Student E/M Service A medical student performed and documented this service in my presence. I reviewed and verified all information documented by the medical student and made modifications to such information, when appropriate. I personally performed the physical exam and medical decision making. Josefina Mcnally, Sep 08, 2019,20:31 NICKI VALLE,MED STUDENT Sep 08, 2019 10:40 JOSEFINA MCNALLY DO Sep 08, 2019 20:31
--- NOTE | 2019-09-08 11:06 | Pulmonary Consultation ---
History of Present Illness History of Present Illness Date Seen by Provider: Sep 07, 2019 (late note today is 09/08 ) Time Seen by Provider: 11:00 Date of Admission History of Present Illness The patient is a morbidly obes 49 year old female who presented to the ER on 09/05 due to increasing shortness of breath. She states that she had been becoming increasingly short of breath over the previous week. She had been using her albuterol inhaler regularly but had not been using her symbicort. She reports a 10/pk year history of smoking having quit 6 years ago. She states that she has not been previously diagnosed with COPD. The patient states that she was diagnosed with asthma about 25 years ago and typically uses albuterol rescue inhaler, albuterol nebulizer treatments, and Symbicort at home. This morning the patient is reporting that her symptoms have improved overall. She has decreased shortness of breath and is having much less sputum production with her cough. She denies chest pain, fevers, or chills. She has no other complaints or concerns at this time. Allergies and Home Medications Allergies Coded Allergies: morphine (Verified Allergy, Mild, 09/05/19) itch Home Medications Acetaminophen 500 Mg Tablet, 1,000 MG PO BID, (Reported) TAKES 2 (500MG) TABLETS Albuterol Sulfate 2.5 Mg/3 Ml Vial.neb, 2.5 MG NEB Q4H PRN for SHORTNESS OF BREATH, (Reported) Albuterol Sulfate 1 Puff Puff, 2 PUFF IH Q4H PRN for SHORTNESS OF BREATH, (Reported) 1 PUFF = 90 MCG Bupropion HCl 200 Mg Tablet.er, 200 MG PO BID, (Reported) Cyclobenzaprine HCl 10 Mg Tablet, 10 MG PO TID PRN for MUSCLE SPASMS, (Reported) Duloxetine HCl 30 Mg Capsule.dr, 90 MG PO DAILY, (Reported) TAKES 3 (30MG) CAPSULES Meloxicam 15 Mg Tablet, 15 MG PO DAILY, (Reported) Past Kuueoer-Ujfzot-Lkprhn Hx Past Med/Social Hx: Reviewed Nursing Past Med/Soc Hx, Reviewed and Corrections made Patient Social History Alcohol Use: Denies Use Recreational Drug Use: No Smoking Status: Former Smoker Type Used: Cigarettes Former Smoker, Quit: Jul 27, 2013 Recent Foreign Travel: No Contact w/Someone Who Travel: No Recent Infectious Disease Expo: No Recent Hopitalizations: No Immunizations Up To Date Tetanus Booster (TDap): Unknown PED Vaccines UTD: Yes Date of Pneumonia Vaccine: Oct 22, 2008 Date of Influenza Vaccine: Jun 21, 2019 Seasonal Allergies Seasonal Allergies: No Past Medical History Surgeries: Yes (GASTRIC BYPASS - 2001) Abdominal Respiratory: Yes Asthma, COPD Currently Using CPAP: No Currently Using BIPAP: No Cardiac: No Neurological: No Reproductive Disorders: No Female Reproductive Disorders: Denies Sexually Transmitted Disease: No HIV/AIDS: No Genitourinary: Yes Bladder Infection Gastrointestinal: Yes (GASTRIC BYPASS) Gastroesophageal Reflux, Chronic Constipation Musculoskeletal: No Chronic Back Pain Endocrine: No HEENT: No Cancer: No 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 2.0oz. [id number]; 59.98 BMI Method:Estimated Exam Exam Vital Signs Date Time Temp Pulse Resp B/P (MAP) Pulse Ox O2 Delivery O2 Flow Rate FiO2 09/08/19 08:00 94 Nasal Cannula 4.00 09/08/19 08:00 36.3 75 18 121/79 (93) 94 High Flow N/C 5.00 09/08/19 07:17 94 Nasal Cannula 4.00 09/08/19 07:12 94 Nasal Cannula 4.00 09/08/19 04:00 36.8 76 21 139/83 (101) 94 High Flow N/C 5.00 09/08/19 02:19 94 Nasal Cannula 4.00 09/08/19 00:00 36.1 73 21 123/74 (90) 95 High Flow N/C 5.00 09/07/19 22:50 92 Nasal Cannula 4.00 09/07/19 20:00 36.6 98 18 148/82 (104) 94 High Flow N/C 5.00 09/07/19 19:45 High Flow N/C 4.00 09/07/19 19:14 93 Nasal Cannula 4.00 09/07/19 19:14 93 Nasal Cannula 4.00 09/07/19 16:00 36.2 54 24 149/79 (102) 91 High Flow N/C 5.00 09/07/19 14:07 89 Nasal Cannula 3.00 09/07/19 11:49 36.4 80 18 159/94 (115) 95 High Flow N/C 5.00 I & O 09/08/19 07:00 Intake Total 5340 ml Balance 5340 ml Height & Weight Height: 5'4.00" Weight: 323lbs. 2.0oz. 146.725991id; 59.98 BMI Method:Estimated General Appearance: No Apparent Distress, Obese HEENT: PERRL/EOMI, Pharynx Normal Neck: Non Tender, Supple Respiratory: Chest Non Tender, No Accessory Muscle Use, No Respiratory Distress, Wheezing (mild and much improved from previous exam) Cardiovascular: Regular Rate, Rhythm, No Murmur Capillary Refill: Less Than 3 Seconds Gastrointestinal: soft Extremity: No Calf Tenderness, No Pedal Edema Neurologic/Psychiatric: Alert, Normal Mood/Affect Skin: Normal Color, Warm/Dry Lymphatic: No Adenopathy Results Lab Laboratory Tests 09/08/19 06:27 Assessment/Plan Assessment/Plan AsthmaAE -Solumedrol -SVNS Q4 hrs -Pulmicort BID Obesity KRISTIE MARCH DO Sep 08, 2019 11:06
[2019-09-08] MEDS: fluCOnazole (DIFLUCAN) 100 MG TAB PO SCH (11:47)
[2019-09-08 12:00] VITALS: BP 166/77
--- NOTE | 2019-09-08 12:29 | Diagnostic Imaging Report ---
INDICATION: Shortness of breath. Time of exam 11:07 a.m. COMPARISON: Correlation is made with prior chest from 09/05/2019. FINDINGS: There is a zone of linear atelectasis in the right base. Otherwise the lungs are clear. Pulmonary vascularity is normal. No effusion or pneumothorax is seen. IMPRESSION: Discoid atelectasis in the right base. No other significant abnormality is seen. Dictated by: Dictated on workstation # [id number]
--- NOTE | 2019-09-08 15:23 | NUR ---
92% on 2L pt was off oxygen for 30 minutes and sat of 88% pt placed on 3L and sat of 91% pt started walking on 3L and pt desated to 87% increased oxygen to 4L and pt went upto 90% pt walked 516ft on 4L and sat was above 90% the whole time
[2019-09-08 16:00] VITALS: BP 139/80
[2019-09-08] MEDS: AZITHROMYCIN INJECTION 500 MG in NS (IVPB) 250 ML IV SCH (17:02)
[2019-09-08] MEDS: ZOLPIDEM 5 MG (AMBIEN) TAB PO SCH (21:51)
[2019-09-09 00:28] VITALS: BP 135/80
[2019-09-09] MEDS: CYCLOBENZAPRINE 10 MG (FLEXERIL) TAB PO PRN ×3 (01:57→22:58)
[2019-09-09] MEDS: RT-ALBUTEROL/IPRATROPIUM 3 ML (DUONEB) VIAL INH SCH ×5 (02:09→22:51)
[2019-09-09] MEDS: ENOXAPARIN 60 MG/0.6 ML (LOVENOX) SYR SC SCH ×2 (06:05→18:46)
[2019-09-09] MEDS: buPROPion SR 100 MG (WELLBUTRIN SR) TAB PO SCH ×2 (06:19→17:43)
[2019-09-09] MEDS: predniSONE 20 MG TAB PO SCH (06:19)
[2019-09-09] MEDS: RT-BUDESONIDE NEBS 0.5 MG/2ML (PULMICORT) AMP INH SCH ×2 (07:51→18:11)
[2019-09-09 08:00] VITALS: BP 131/75
[2019-09-09] MEDS: fluCOnazole (DIFLUCAN) 100 MG TAB PO SCH (08:46)
[2019-09-09] MEDS: DULoxetine 30 MG (CYMBALTA) CAP PO SCH (08:46)
[2019-09-09] MEDS: MELOXICAM 7.5 MG (MOBIC) TABLET PO SCH (08:46)
[2019-09-09] MEDS: ACETAMINOPHEN 500 MG TAB (TYLENOL) PO SCH ×2 (08:47→22:12)
--- NOTE | 2019-09-09 11:56 | Progress Note - Hospitalist ---
NICKI VALLE,MED STUDENT 09/09/19 1156: Subjective HPI/CC On Admission Date Seen by Provider: Sep 09, 2019 Time Seen by Provider: 10:15 CC: AECOPD HPI: This is a 49yoWF clinic patient of Dr Mckeon who has a h/o COPD and SVETLANA who refuses to allow Dr Chavez to see her in consultation who presents to the ER with dyspnea after she couldn't wait until her appt today at 0915 and was dx with severe AECOPD. Patient feels like she needs an abx due to coughing up green yellow sputum so I initiated Zmax IV. Patient refuses Lovenox and SCD's. Subjective/Events-last exam Patient continues to complain of cough and hoarse voice. She also complains of constipation and bloating. She is sleeping better with ambien. She had a home O2 evaluation yesterday and was unable to keep her O2 sat above 90 unless she was on 4L O2. She does not feel ready to go home today. Repeat CXR yesterday was negative other than some discoid atelectasis at the right lung base. Objective Exam Vital Signs Vital Signs Date Time Temp Pulse Resp B/P (MAP) Pulse Ox O2 Delivery O2 Flow Rate FiO2 09/09/19 09:16 36.4 09/09/19 08:05 Nasal Cannula 3.00 09/09/19 07:57 90 09/09/19 00:28 104 20 135/80 (98) 09/07/19 10:27 5 Capillary Refill : Less Than 3 SecondsLess Than 3 Seconds General Appearance: No Apparent Distress, Obese Respiratory: Chest Non Tender, No Accessory Muscle Use, No Respiratory Distress, Crackles, Wheezing Cardiovascular: No Murmur, Tachycardia (regular rhythm) Gastrointestinal: Non Tender, Soft Neurologic/Psychiatric: Alert, Normal Mood/Affect Skin: Normal Color, Warm/Dry Lymphatic: No Adenopathy Results/Procedures Lab Patient resulted labs reviewed. Assessment/Plan Assessment and Plan Assess & Plan/Chief Complaint Assessment: COPD with acute exacerbation Hypoxia Constipation Plan: Continue oral prednisone and robitussin Stool softeners Appreciate Dr. Chavez Encouraged increased ambulation Breathing treatments as needed Clinical Quality Measures DVT/VTE Risk/Contraindication: Risk Factor Score Per Nursin RFS Level Per Nursing on Admit: 4+=Very High JOSEFINA MCNALLY DO 09/10/19 1500: Subjective Subjective/Events-last exam Pt not having a good day Home O2 evaluated her to need four liters of O2 Miralax and Senna will be given for bowels Overall still not ready for DC since she is still wheezing and has SOB, she is able to ambulate well Review of Systems Pulmonary: Dyspnea, Cough Objective Exam General Appearance: No Apparent Distress, Obese Respiratory: No Accessory Muscle Use, No Respiratory Distress, Crackles, Wheezing Neurologic/Psychiatric: Alert, Oriented x3, No Motor/Sensory Deficits, Normal Mood/Affect Assessment/Plan Assessment and Plan Assess & Plan/Chief Complaint Continue aggressive respiratory meds Very severe SVETLANA and COPD Diagnosis/Problems Diagnosis/Problems (1) COPD with acute exacerbation Status: Acute (2) Hypoxia Status: Acute (3) Asthma Status: Chronic (4) Anemia Onset Date: 11/02/2013 Status: Chronic (5) DVT prophylaxis Status: Acute Supervisory-Addendum Brief Verification & Attestation Participated in pt care: history, MDM, physical Personally performed: exam, history, MDM, supervision of care Care discussed with: Medical Student Procedures: n/a Results interpretation: Verified all documentation Verification and Attestation of Medical Student E/M Service A medical student performed and documented this service in my presence. I reviewed and verified all information documented by the medical student and made modifications to such information, when appropriate. I personally performed the physical exam and medical decision making. Josefina Mcnally, Sep 10, 2019,14:59 NICKI VALLE,MED STUDENT Sep 09, 2019 11:56 JOSEFINA MCNALLY DO Sep 10, 2019 15:00
[2019-09-09 16:00] VITALS: BP 135/73
[2019-09-09] MEDS: AZITHROMYCIN INJECTION 500 MG in NS (IVPB) 250 ML IV SCH (17:43)
[2019-09-09] MEDS: ZOLPIDEM 5 MG (AMBIEN) TAB PO SCH (22:12)
[2019-09-09] MEDS: guaiFENesin/DM (ROBITUSSIN DM) 10 ML UDC PO PRN (22:58)
[2019-09-09 23:59] VITALS: BP 125/58
[2019-09-10] MEDS: RT-ALBUTEROL/IPRATROPIUM 3 ML (DUONEB) VIAL INH SCH ×7 (02:50→23:34)
[2019-09-10] MEDS: ENOXAPARIN 60 MG/0.6 ML (LOVENOX) SYR SC SCH ×2 (06:42→13:45)
[2019-09-10] MEDS: buPROPion SR 100 MG (WELLBUTRIN SR) TAB PO SCH ×2 (06:43→16:11)
[2019-09-10] MEDS: predniSONE 20 MG TAB PO SCH (06:43)
[2019-09-10] MEDS: RT-BUDESONIDE NEBS 0.5 MG/2ML (PULMICORT) AMP INH SCH ×2 (07:13→18:04)
[2019-09-10 08:00] VITALS: BP 132/67
[2019-09-10] MEDS: DULoxetine 30 MG (CYMBALTA) CAP PO SCH (08:22)
[2019-09-10] MEDS: MELOXICAM 7.5 MG (MOBIC) TABLET PO SCH (08:23)
[2019-09-10] MEDS: fluCOnazole (DIFLUCAN) 100 MG TAB PO SCH (08:23)
[2019-09-10] MEDS: ACETAMINOPHEN 500 MG TAB (TYLENOL) PO SCH ×2 (08:23→20:54)
--- NOTE | 2019-09-10 12:25 | Progress Note - Hospitalist ---
Subjective HPI/CC On Admission Date Seen by Provider: Sep 10, 2019 Time Seen by Provider: 11:30 CC: AECOPD HPI: This is a 49yoWF clinic patient of Dr Mckeon who has a h/o COPD and SVETLANA who refuses to allow Dr Chavez to see her in consultation who presents to the ER with dyspnea after she couldn't wait until her appt today at 0915 and was dx with severe AECOPD. Patient feels like she needs an abx due to coughing up green yellow sputum so I initiated Zmax IV. Patient refuses Lovenox and SCD's. Subjective/Events-last exam Not ready to DC yet Requiring 3 liters of O2 now Very difficult to manage this patient's severity of COPD SVETLANA OHS BM+ Wheezing persists Review of Systems Pulmonary: Dyspnea, Cough Objective Exam Vital Signs Vital Signs Date Time Temp Pulse Resp B/P (MAP) Pulse Ox O2 Delivery O2 Flow Rate FiO2 09/10/19 14:17 92 Room Air 09/10/19 10:44 3.00 09/10/19 08:00 35.0 88 20 132/67 (88) 09/07/19 10:27 5 Capillary Refill : Less Than 3 SecondsLess Than 3 Seconds General Appearance: No Apparent Distress Respiratory: Crackles, Wheezing Cardiovascular: Regular Rate, Rhythm Neurologic/Psychiatric: Alert, Oriented x3, No Motor/Sensory Deficits, Normal Mood/Affect Results/Procedures Lab Patient resulted labs reviewed. Assessment/Plan Assessment and Plan Assess & Plan/Chief Complaint Assessment: Severe bronchospasm OHS SVETLANA COPD Cough Plan: Monitor lungs Steroids O2 Nebs Diagnosis/Problems Diagnosis/Problems (1) COPD with acute exacerbation Status: Acute (2) Hypoxia Status: Acute (3) Asthma Status: Chronic (4) Anemia Onset Date: 11/02/2013 Status: Chronic (5) DVT prophylaxis Status: Acute Clinical Quality Measures DVT/VTE Risk/Contraindication: Risk Factor Score Per Nursin RFS Level Per Nursing on Admit: 4+=Very High STEPHANIE MCNALLY DO Sep 10, 2019 12:25
[2019-09-10 16:04] VITALS: BP 135/75
[2019-09-10] MEDS: CYCLOBENZAPRINE 10 MG (FLEXERIL) TAB PO PRN ×2 (16:11→23:31)
[2019-09-10] MEDS: guaiFENesin/DM (ROBITUSSIN DM) 10 ML UDC PO PRN ×2 (18:54→23:31)
[2019-09-10] MEDS: ZOLPIDEM 5 MG (AMBIEN) TAB PO SCH (20:53)
[2019-09-10 23:56] VITALS: BP 118/59
[2019-09-11] MEDS: RT-ALBUTEROL/IPRATROPIUM 3 ML (DUONEB) VIAL INH SCH ×6 (02:53→23:35)
--- NOTE | 2019-09-11 02:55 | NUR ---
pt wants to hold 0200 tx due to being late for last tx and wanting to sleep, she will call if tx is needed inbetween. Addendum: 09/11/19 at 0256 by GABRIELA PEARSON RT Amended: Links added.
[2019-09-11] MEDS: buPROPion SR 100 MG (WELLBUTRIN SR) TAB PO SCH ×2 (06:33→17:04)
[2019-09-11] MEDS: predniSONE 20 MG TAB PO SCH (06:33)
[2019-09-11] MEDS: ENOXAPARIN 60 MG/0.6 ML (LOVENOX) SYR SC SCH ×2 (06:34→11:02)
[2019-09-11 07:48] VITALS: BP 140/66
[2019-09-11] MEDS: fluCOnazole (DIFLUCAN) 100 MG TAB PO SCH (08:59)
[2019-09-11] MEDS: DULoxetine 30 MG (CYMBALTA) CAP PO SCH (09:00)
[2019-09-11] MEDS: MELOXICAM 7.5 MG (MOBIC) TABLET PO SCH (09:00)
[2019-09-11] MEDS: ACETAMINOPHEN 500 MG TAB (TYLENOL) PO SCH ×2 (09:00→20:40)
[2019-09-11] MEDS: RT-BUDESONIDE NEBS 0.5 MG/2ML (PULMICORT) AMP INH SCH ×2 (09:43→19:20)
--- NOTE | 2019-09-11 09:44 | NUR ---
"RD ASSESSMENT PMHx: COPD; GERD; chronic constipation PT INTERACTION: Pt was awake and pleasant during nutrition follow-up. Pt states they have been eating well since last assessment. Note pt avg PO intake >75% x3d, per chart review. Pt states no recent issues with n/v at this time. Pt states some episodes of constipation since last assessment. Note last BM was 09/09 and pt not currently on bowel regimen, per chart review. ABNORMAL NUTRITION-RELATED LAB VALUES LOW: Pro 6.0 HIGH: Cl 109; BUN 20; glu 127 Est. kcal needs: [id number] kcal | 25-30 kcal/kg IBW Est. Pro needs: 55-65 g Pro | 1.0-1.2 g Pro/kg IBW PES STATEMENT: Given pt's current PO intake, no nutrition diagnosis at this time (NO-1.1) INTERVENTION: Continue with current diet order of Regular diet. Will continue to follow and reassess as pt needs and status change. MONITOR/EVALUATE: PO Intake; Plan of Care; Hydration Status; Weight Status; Lab Values Morris Gonzalez, , RD, LD"
--- NOTE | 2019-09-11 12:06 | Progress Note - Hospitalist ---
Subjective HPI/CC On Admission Date Seen by Provider: Sep 11, 2019 Time Seen by Provider: 10:45 CC: AECOPD HPI: This is a 49yoWF clinic patient of Dr Mckeon who has a h/o COPD and SVETLANA who refuses to allow Dr Chavez to see her in consultation who presents to the ER with dyspnea after she couldn't wait until her appt today at 0915 and was dx with severe AECOPD. Patient feels like she needs an abx due to coughing up green yellow sputum so I initiated Zmax IV. Patient refuses Lovenox and SCD's. Subjective/Events-last exam Patient doing much better but still wheezing and coughing Was using the CPAP machine and oxygen fell off of it and she was assessed to be at 85% so she definitely needs that hooked into bleed into her CPAP machine at discharge Remains at 3 L of oxygen MiraLAX and senna will be given twice daily schedule until bowels move Likely discharge tomorrow Review of Systems General: Fatigue Pulmonary: Dyspnea, Cough Gastrointestinal: Constipation Objective Exam Vital Signs Vital Signs Date Time Temp Pulse Resp B/P (MAP) Pulse Ox O2 Delivery O2 Flow Rate FiO2 09/11/19 16:11 36.3 88 22 126/68 (87) 95 High Flow N/C 3.00 09/07/19 10:27 5 Capillary Refill : Less Than 3 SecondsLess Than 3 Seconds General Appearance: No Apparent Distress, WD/WN Respiratory: Chest Non Tender, No Accessory Muscle Use, No Respiratory Distress, Crackles, Wheezing (lower lobes) Neurologic/Psychiatric: Alert, Oriented x3, No Motor/Sensory Deficits, Normal Mood/Affect Results/Procedures Lab Patient resulted labs reviewed. Assessment/Plan Assessment and Plan Assess & Plan/Chief Complaint Assessment: Severe bronchospasm OHS SVETLANA COPD Cough Plan: Monitor lungs Steroids O2 Nebs Diagnosis/Problems Diagnosis/Problems (1) COPD with acute exacerbation Status: Acute (2) Hypoxia Status: Acute (3) Asthma Status: Chronic (4) Anemia Onset Date: 11/02/2013 Status: Chronic (5) DVT prophylaxis Status: Acute Clinical Quality Measures DVT/VTE Risk/Contraindication: Risk Factor Score Per Nursin RFS Level Per Nursing on Admit: 4+=Very High STEPHANIE MCNALLY DO Sep 11, 2019 12:06
[2019-09-11 16:11] VITALS: BP 126/68
[2019-09-11] MEDS: CYCLOBENZAPRINE 10 MG (FLEXERIL) TAB PO PRN (17:04)
[2019-09-11] MEDS: POLYETHYLENE GLYCOL 17 GM (MIRALAX) PACK PO SCH (20:40)
[2019-09-11] MEDS: ZOLPIDEM 5 MG (AMBIEN) TAB PO SCH (20:40)
[2019-09-11] MEDS: SENNA W/DOCUSATE (SENOKOT S) TABLET PO SCH (20:40)
[2019-09-12 00:26] VITALS: BP 132/63
[2019-09-12] MEDS: RT-ALBUTEROL/IPRATROPIUM 3 ML (DUONEB) VIAL INH SCH ×4 (02:00→15:01)
[2019-09-12] MEDS: CYCLOBENZAPRINE 10 MG (FLEXERIL) TAB PO PRN ×2 (04:33→16:24)
[2019-09-12] MEDS: guaiFENesin/DM (ROBITUSSIN DM) 10 ML UDC PO PRN (04:33)
[2019-09-12 05:22] LABS: BASOPHILS % (AUTO) 0 % (0-10); EOSINOPHILS # (AUTO) 0.2 10^3/uL (0.0-0.3); EOSINOPHILS % (AUTO) 1 % (0-10); HEMATOCRIT 39 % (35-52); HEMOGLOBIN 11.7 G/DL (11.5-16.0); LYMPHOCYTES # (AUTO) 3.5 X 10^3 (1.0-4.0); LYMPHOCYTES % (AUTO) 30 % (12-44); MEAN CORPUSCULAR HEMOGLOBIN 25 PG (25-34); MEAN CORPUSCULAR HGB CONC 30 G/DL (32-36); MEAN CORPUSCULAR VOLUME 84 FL (80-99); MONOCYTES # (AUTO) 1.3 X 10^3 (0.0-1.0); MONOCYTES % (AUTO) 11 % (0-12); NEUTROPHILS # (AUTO) 6.7 X 10^3 (1.8-7.8); NEUTROPHILS % (AUTO) 57 % (42-75); PLATELET COUNT 290 10^3/uL (130-400); RED CELL DISTRIBUTION WIDTH 16.4 % (10.0-14.5); WHITE BLOOD COUNT 11.8 10^3/uL (4.3-11.0)
[2019-09-12] MEDS: ENOXAPARIN 60 MG/0.6 ML (LOVENOX) SYR SC SCH ×2 (05:42→17:24)
[2019-09-12 05:55] LABS: ALANINE AMINOTRANSFERASE 38 U/L (0-55); ALBUMIN 3.5 GM/DL (3.2-4.5); ALKALINE PHOSPHATASE 74 U/L (40-136); BILIRUBIN,TOTAL 0.2 MG/DL (0.1-1.0); BUN/CREATININE RATIO 18; CALCIUM 8.6 MG/DL (8.5-10.1); CARBON DIOXIDE 27 MMOL/L (21-32); CHLORIDE 102 MMOL/L (98-107); CREATININE SERUM 0.98 MG/DL (0.60-1.30); GFR ESTIMATED > 60; GLUCOSE 104 MG/DL (70-105); POTASSIUM 4.4 MMOL/L (3.6-5.0); SODIUM 140 MMOL/L (135-145); TOTAL PROTEIN 6.4 GM/DL (6.4-8.2)
[2019-09-12] MEDS: buPROPion SR 100 MG (WELLBUTRIN SR) TAB PO SCH ×2 (06:03→17:22)
[2019-09-12] MEDS: predniSONE 20 MG TAB PO SCH (06:03)
[2019-09-12] MEDS: RT-BUDESONIDE NEBS 0.5 MG/2ML (PULMICORT) AMP INH SCH (06:39)
[2019-09-12 08:00] VITALS: BP 129/68
[2019-09-12] MEDS: MELOXICAM 7.5 MG (MOBIC) TABLET PO SCH (08:12)
[2019-09-12] MEDS: DULoxetine 30 MG (CYMBALTA) CAP PO SCH (09:18)
[2019-09-12] MEDS: SENNA W/DOCUSATE (SENOKOT S) TABLET PO SCH (09:18)
[2019-09-12] MEDS: POLYETHYLENE GLYCOL 17 GM (MIRALAX) PACK PO SCH (09:18)
[2019-09-12] MEDS: fluCOnazole (DIFLUCAN) 100 MG TAB PO SCH (09:19)
[2019-09-12] MEDS: ACETAMINOPHEN 500 MG TAB (TYLENOL) PO SCH (09:19)
[2019-09-12 11:09] VITALS: BP 132/63
--- NOTE | 2019-09-12 14:40 | NUR ---
91% on 2L pt was off oxygen for 30 minutes and sat of 88% pt placed on 3L and sat of 91% pt started walking on 3L and pt desated to 87% increased oxygen to 4L and pt went upto 90% pt walked 516ft on 4L and sat was above 90% the whole time Addendum: 09/12/19 at 1442 by ADE BROCK RT Amended: Links added.
[2019-09-12] MEDS ORDERED: IPRA3AMP31 INH (15:13)
[2019-09-12] MEDS ORDERED: BUDE180A IH (15:13)
[2019-09-12] MEDS ORDERED: PRED10TA22 PO (15:13)
--- NOTE | 2019-09-12 15:15 | Discharge Instructions ---
Discharge [facility] Discharge Medications New, Converted or Re-Newed RX: Transmitted to Pharmacy New Medications: Budesonide (Pulmicort Flexhaler) 180 Mcg Aer.pow.ba 2 PUFF IH BID, #1 INHALER 0 Refills Prednisone (Prednisone) 10 Mg Tab.ds.pk 0 PO DAILY, #42 EA 0 Refills Take 6 tabs(60mg)daily,decrease by 1 tab(10mg)every other day. Ipratropium/Albuterol Sulfate (Iprat-Albut 0.5-3(2.5) mg/3 ml) 3 Ml Ampul.neb 3 ML INH Q4H PRN for WHEEZING, #300 ML 0 Refills Continued Medications: Acetaminophen (Tylenol Extra Strength) 500 Mg Tablet 1000 MG PO BID, TAB TAKES 2 (500MG) TABLETS Albuterol Sulfate (Albuterol Sulfate) 2.5 Mg/3 Ml Vial.neb 2.5 MG NEB Q4H PRN for SHORTNESS OF BREATH, EA Albuterol Sulfate (Proair Hfa) 1 Puff Puff 2 PUFF IH Q4H PRN for SHORTNESS OF BREATH, INHALER 1 PUFF = 90 MCG Bupropion HCl (Wellbutrin Sr) 200 Mg Tablet.er 200 MG PO BID, TAB Cyclobenzaprine HCl (Cyclobenzaprine HCl) 10 Mg Tablet 10 MG PO TID PRN for MUSCLE SPASMS, TAB Duloxetine HCl (Cymbalta) 30 Mg Capsule.dr 90 MG PO DAILY, CAP TAKES 3 (30MG) CAPSULES Meloxicam (Meloxicam) 15 Mg Tablet 15 MG PO DAILY, TAB Patient Instructions Goal/Follow Up Appt: Follow up with Yanet Byrd APRN (nurse practitioner with Dr. Mckeon) on 09/15 at 9 am. [facility] to [facility] For: Fever, worsening shortness of breath Activity & Diet Discharge Diet: Regular Diet Activity as Tolerated: Yes PHILIP PITTS MD Sep 12, 2019 15:14
--- NOTE | 2019-09-12 15:27 | NUR ---
Pt's home oxygen study completed and qualifies for Home Oxygen. [facility] will provide oxygen with financial assistance pending.Home study and physician orders faxed to [facility].
[2019-09-12 15:50] VITALS: BP 128/77
[2019-09-12 17:56] VITALS: BP 128/77
--- NOTE | 2019-09-12 21:06 | Discharge Summary ---
Discharge Summary Hospital Course Hospital Course Date of Admission: Sep 05, 2019 at 11:32 Admission Diagnosis : [facility] [place]: 09/12/19 Discharge Diagnosis: COPD exacerbation Hospital Course: Pt admitted and placed on steroids and antibiotics. Continued to have fairly significant wheezing and required supplemental oxygen at d/c, but was wanting to get home for the holiday as well and had already completed course of antibiotics and steroid burst. Given severity, was discharged with steroid taper. She also requested duonebs for home as she had only albuterol, so script was sent for t hat as well as inhaled steroid. Labs and Pending Lab Test: Laboratory Tests 09/12/19 04:45: White Blood Count 11.8H, Red Blood Count 4.60, Hemoglobin 11.7, Hematocrit 39, Mean Corpuscular Volume 84, Mean Corpuscular Hemoglobin 25, Mean Corpuscular Hemoglobin Concent 30L, Red Cell Distribution Width 16.4H, Platelet Count 290, Mean Platelet Volume 10.0, Neutrophils (%) (Auto) 57, Lymphocytes (%) (Auto) 30, Monocytes (%) (Auto) 11, Eosinophils (%) (Auto) 1, Basophils (%) (Auto) 0, Neutrophils # (Auto) 6.7, Lymphocytes # (Auto) 3.5, Monocytes # (Auto) 1.3H, Eosinophils # (Auto) 0.2, Basophils # (Auto) 0.0, Sodium Level 140, Potassium Level 4.4, Chloride Level 102, Carbon Dioxide Level 27, Anion Gap 11, Blood Urea Nitrogen 18, Creatinine 0.98, Estimat Glomerular Filtration Rate > 60, BUN/ Creatinine Ratio 18, Glucose Level 104, Calcium Level 8.6, Corrected Calcium 9.0, Total Bilirubin 0.2, Aspartate Amino Transf (AST/SGOT) 14, Alanine Aminotransferase (ALT/SGPT) 38, Alkaline Phosphatase 74, Total Protein 6.4, Albumin 3.5 Microbiology 09/05/19 Blood Culture - Final, Complete No growth Home Meds Active Prednisone 10 Mg Tab.ds.pk 0 PO DAILY Take 6 tabs(60mg)daily,decrease by 1 tab(10mg)every other day. Pulmicort Flexhaler (Budesonide) 180 Mcg Aer.pow.ba 2 Puff IH BID Iprat-Albut 0.5-3(2.5) mg/3 ml (Ipratropium/Albuterol Sulfate) 3 Ml Ampul.neb 3 Ml INH Q4H PRN Reported Tylenol Extra Strength (Acetaminophen) 500 Mg Tablet 1,000 Mg PO BID TAKES 2 (500MG) TABLETS Proair Hfa (Albuterol Sulfate) 1 Puff Puff 2 Puff IH Q4H PRN 1 PUFF = 90 MCG Wellbutrin Sr (Bupropion HCl) 200 Mg Tablet.er 200 Mg PO BID Cyclobenzaprine HCl 10 Mg Tablet 10 Mg PO TID PRN Albuterol Sulfate 2.5 Mg/3 Ml Vial.neb 2.5 Mg NEB Q4H PRN Cymbalta (Duloxetine HCl) 30 Mg Capsule.dr 90 Mg PO DAILY TAKES 3 (30MG) CAPSULES Meloxicam 15 Mg Tablet 15 Mg PO DAILY Assessment/Pt DC Instructions See hospital course Discharge Physical Examination Allergies: Coded Allergies: morphine (Verified Allergy, Mild, 09/05/19) itch General Appearance: No Apparent Distress Respiratory: No Respiratory Distress; No Accessory Muscle Use; Wheezing Cardiovascular: Regular Rate, Rhythm, No Murmur Skin: Normal Color, Warm/Dry Neurologic/Psychiatric: Alert, Normal Mood/Affect Copy Copies To 1: BRICE RAMIREZ MD Discharge Summary Date of Admission Sep 05, 2019 at 11:32 Date of Discharge Sep 12, 2019 at 17:45 Discharge Date: Sep 12, 2019 Admission Diagnosis Assessment: AECOPD Acute bacterial bronchitis Obesity Former smoker Plan: IV steroids Nebs O2 Lovenox Home meds Discharge Diagnosis (1) COPD with acute exacerbation Status: Acute (2) Hypoxia Status: Acute (3) Asthma Status: Chronic (4) Anemia Onset Date: 11/02/2013 Status: Chronic (5) DVT prophylaxis Status: Acute Clinical Quality Measures DVT/VTE Risk/Contraindication: Risk Factor Score Per Nursin RFS Level Per Nursing on Admit: 4+=Very High PHILIP PITTS MD Sep 12, 2019 21:05
== END 2019-09-12 17:45 | disposition home or self-care (01) | DRG 191 ==
LOC: EDUNIT# 09:09 → ER 09:10 → 4TH 11:32
PROVIDERS: ADMIT Internal Medicine; ATTEND Family Medicine
DX: J44.1 Chronic obstructive pulmonary disease with (acute) exacerbation (principal); Z68.43 Body mass index [BMI] 50.0-59.9, adult; J45.901 Unspecified asthma with (acute) exacerbation; J20.9 Acute bronchitis, unspecified; D64.9 Anemia, unspecified; G47.33 Obstructive sleep apnea (adult) (pediatric); E66.9 Obesity, unspecified; K21.9 Gastro-esophageal reflux disease without esophagitis; K59.09 Other constipation; M54.9 Dorsalgia, unspecified; F41.9 Anxiety disorder, unspecified; F32.9 Major depressive disorder, single episode, unspecified; F91.3 Oppositional defiant disorder; J44.0 Chronic obstructive pulmonary disease with (acute) lower respiratory infection; G89.29 Other chronic pain; D72.829 Elevated white blood cell count, unspecified; T38.0X5A Adverse effect of glucocorticoids and synthetic analogues, initial encounter; L29.2 Pruritus vulvae; R09.02 Hypoxemia; Z87.891 Personal history of nicotine dependence; Z87.440 Personal history of urinary (tract) infections
CPT/HCPCS: 36415; 71045; 71046; 80053; 83605; 85007; 85025; 85027; 85610; 85730; 87040; 94640; 94644; 94760; 94761; 96374